=== PATIENT | female | born 1995 | race Caucasian/White ===

== ENCOUNTER 2017-11-28 09:42 | Emergency (ER) | payer OTHER, SELFPAY ==
[2017-11-28 12:29] LABS: Urine Blood 3+ (NEG); Urine Glucose NEGATIVE (NEG); Urine Protein 2+ (NEG); Urine Specific Gravity 1.025 (1.005-1.030); Urine pH 8.5 (5.0-7.0)
[2017-11-28 12:58] LABS: Urine RBC TNTC /HPF (NONE SEEN)
--- NOTE | 2017-11-28 12:58 | RAD REPORT ---
EXAM DESCRIPTION: US - Transvaginal Study Probe - 11/28/2017 12:49 pm CLINICAL HISTORY: PAIN Pelvic pain. COMPARISON: No comparisons FINDINGS: The uterus is normal in size, shape and echotexture. The uterus measures 7.0 x 3.6 x 3.5 c m. The endometrial stripe measures 4 mm, normal. Both ovaries are normal in size, shape and echotexture. The right ovary measures 3.1 x 2.3 x 2.2 cm. The left ovary measures 3.4 x 2.7 x 2.4 cm. No ovarian or parovarian lesions. No adnexal masses. Normal Doppler blood flow was demonstrated to both ovaries. No significant pelvic ascites. IMPRESSION: Unremarkable study.
[2017-11-28 12:59] LABS: Urine Bacteria <20 /HPF (<20); Urine Culture Reflex Order NOT NEEDED
[2017-11-28 13:22] LABS: Absolute Lymphocytes (CBC) 2.1 K/uL (0.7-4.9); Absolute Monocytes 0.8 K/uL (0.1-1.3); Absolute Neutrophil 6.5 K/uL (1.8-8.0); Basophils % 0.5 % (0-1.3); Eosinophils % 4.1 % (0-4.4); Hematocrit 40.9 % (36.0-45.0); Lymphocytes % 21.4 % (15.3-44.8); MCH 25.9 pg (27.0-35.0); MCV 79.7 fL (80-100); MPV 8.1 fL (7.6-11.3); Monocytes % 7.8 % (3.3-12.3); RBC Red Blood Cell Count 5.14 M/uL (3.86-4.86)
--- NOTE | 2017-11-28 13:35 | ER ---
Nurse's Notes [facility] Name: Deric Barry Age: 22 yrs Sex: Female : 1995 Arrival Date: 11/28/2017 Time: 09:47 Bed 6 Private MD: None, None Diagnosis: Pelvic and perineal pain Presentation: 11/28 09:55 Presenting complaint: Patient states: Vaginal redness and inflammation that started 3-4 aj days ago. 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 Onset of symptoms was November 24, 2017. Risk Assessment: Do you want to hurt yourself or someone else? Patient reports no desire to harm self or others. Initial Sepsis Screen: Does the patient meet any 2 criteria? No. Patient's initial sepsis screen is negative. Does the patient have a suspected source of infection? No. Patient's initial sepsis screen is negative. Care prior to arrival: None. 09:55 Method Of Arrival: Ambulatory aj 09:55 Acuity: DOLLY 3 aj Triage Assessment: 09:57 General: Appears in no apparent distress. comfortable, Behavior is calm, cooperative, aj appropriate for age. Pain: Complains of pain in meatus, vaginal opening, right labia minora and left labia minora. Neuro: Level of Consciousness is awake, alert, obeys commands, Oriented to person, place, time, situation, Appropriate for age. Respiratory: Airway is patent Respiratory effort is even, unlabored, Respiratory pattern is regular, symmetrical. : Reports pain in vagina. Derm: Skin is intact, is healthy with good turgor, Skin is pink, warm \T\ dry. normal. 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 - Social history:: Smoking status: Patient/guardian denies using tobacco. - Ebola Screening: : Patient negative for fever greater than or equal to 101.5 degrees Fahrenheit, and additional compatible Ebola Virus Disease symptoms Patient denies exposure to infectious person Patient denies travel to an Ebola-affected area in the 21 days before illness onset No symptoms or risks identified at this time. Assessment: 12:11 Reassessment: requested GC probe from lab, prior to exam. tw2 Vital Signs: 09:57 BP 108 / 59; Pulse 82; Resp 16; Temp 97.8; Pulse Ox 100% on R/A; Weight 89.81 kg; aj Height 5 ft. 1 in. (154.94 cm); 09:57 Body Mass Index 37.41 (89.81 kg, 154.94 cm) aj ED Course: 09:47 Patient arrived in ED. mr 09:48 None, None is Private Physician. mr 09:56 Triage completed. aj 09:57 Arm band placed on left wrist. Patient placed in waiting room. aj 11:13 Elizabeth Robertson RN is Primary Nurse. jl7 11:14 Agustin Peña PA is PHCP. cp 11:14 Georgi Moses MD is Attending Physician. cp 12:25 Urine collected: clean catch specimen, cloudy, blood tinged. jb1 12:35 Patient taken to ultrasound. via wheelchair. aa4 12:49 Ultrasound completed. Patient tolerated well. Patient moved back from ultrasound. aa4 12:50 US Transvaginal Study (Probe) In Process Unspecified. EDMS 13:07 Inserted saline lock: 20 gauge in right antecubital area, using aseptic technique. aj Blood collected. 13:11 Report given to WILL Hardy. tw2 Administered Medications: 14:06 Not Given (Duplicate Order): Rocephin - (cefTRIAXone) 1 grams IVPB once over 30 mins; sg (mix in 50 mL NS) 14:10 Drug: Zithromax 1 grams Route: PO; sg 14:30 Follow up: Response: No adverse reaction jl7 14:10 Drug: Rocephin 1 grams Route: IV; Rate: bolus; Site: right antecubital; sg 14:13 Follow up: Response: No adverse reaction; IV Status: Completed infusion jl7 Outcome: 13:34 Discharge ordered by . cp 14:42 Patient left the ED. bd Addendum: 12/01/2017 08:18 Addendum: Culture Results: Positive urine culture. No further action required. Bacteria s s sensitive to prescribed antibiotic. Signatures: Dispatcher [employer] EDSatish Hermos[place] jb1 Beth Patino Steven, RN Myranda Pineda, RN Dinorah Pierce mr Lewis, Myranda aa4 Roxana Gutierres, RN RN Agustin Diaz PA PA cp Wise, Tara RN RN tw2 Elizabeth Robertson RN RN jl7
--- NOTE | 2017-11-28 13:35 | EDPHYS ---
Physician Documentation [facility] Name: Deric Barry Age: 22 yrs Sex: Female : 1995 Arrival Date: 11/28/2017 Time: 09:47 Bed 6 Private MD: None, None ED Physician Georgi Moses HPI: 11/28 10:45 This 22 yrs old Female presents to ER via Ambulatory with complaints of cp Vaginal Itching, Vaginal Swelling. 10:45 The patient presents with pelvic pain, vaginal bleeding that is. Onset: The cp symptoms/episode began/occurred 4 day(s) ago. Associated signs and symptoms: Pertinent negatives: constipation, diarrhea, dysuria, fever. The patient is sexually active, reportedly has a single partner, does not use protection during intercourse. The patient's method of control includes nothing. 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 - Social history:: Smoking status: Patient/guardian denies using tobacco. - Ebola Screening: : Patient negative for fever greater than or equal to 101.5 degrees Fahrenheit, and additional compatible Ebola Virus Disease symptoms Patient denies exposure to infectious person Patient denies travel to an Ebola-affected area in the 21 days before illness onset No symptoms or risks identified at this time. ROS: 11:00 Constitutional: Negative for body aches, chills, fever, poor PO intake. cp 11:00 Eyes: Negative for injury, pain, redness, and discharge. cp 11:00 ENT: Negative for drainage from ear(s), ear pain, sore throat, difficulty swallowing, difficulty handling secretions. 11:00 Cardiovascular: Negative for chest pain, palpitations. 11:00 Respiratory: Negative for cough, wheezing. 11:00 Abdomen/GI: Negative for abdominal pain, nausea, vomiting, and diarrhea. 11:00 : Positive for pelvic pain, vaginal bleeding, Negative for urinary symptoms, flank pain. 11:00 Skin: Negative for rash. 11:00 Neuro: Negative for altered mental status, headache, weakness. 11:00 All other systems are negative. Exam: 11:00 Head/Face: Normocephalic, atraumatic. cp 11:00 Constitutional: The patient appears in no acute distress, alert, awake, non-toxic, well developed, well nourished. 11:00 Eyes: Periorbital structures: appear normal, Conjunctiva: normal, no exudate, no injection, Lids and lashes: appear normal, bilaterally. 11:00 ENT: External ear(s): are unremarkable, Nose: is normal, Mouth: Lips: moist, Oral mucosa: pink and intact, moist, Posterior pharynx: is normal, airway is patent, no erythema, no exudate. 11:00 Chest/axilla: Palpation: is normal, no crepitus, no tenderness. 11:00 Cardiovascular: Rate: normal, Rhythm: regular. 11:00 Respiratory: the patient does not display signs of respiratory distress, Respirations: normal, no use of accessory muscles, no retractions, no splinting, no tachypnea, labored breathing, is not present. 11:00 Abdomen/GI: Inspection: abdomen appears normal, Bowel sounds: active, all quadrants, Palpation: soft, in all quadrants, mild abdominal tenderness, in the suprapubic area, rebound tenderness, is not appreciated, voluntary guarding, is not appreciated, involuntary guarding, is not appreciated. 11:00 Back: CVA tenderness, is absent. 11:00 Skin: cellulitis, is not appreciated, no rash present. 11:00 Neuro: Orientation: to person, place \T\ time. Mentation: lucid, able to follow commands, Cerebellar function: is grossly normal, Motor: moves all fours, strength is normal, Sensation: no obvious gross deficits. 12:25 : Pelvic Exam: External exam: is normal, Speculum exam: moderate bleeding, no cp cervicitis, os that is closed, no tissue in cervix is seen, no tissue in vagina is seen, bimanual exam reveals cervical motion tenderness, uterine tenderness, no adnexa tenderness or masses bilaterally, discharge, bloody, the nurse was present for the exam. Vital Signs: 09:57 BP 108 / 59; Pulse 82; Resp 16; Temp 97.8; Pulse Ox 100% on R/A; Weight 89.81 kg; aj Height 5 ft. 1 in. (154.94 cm); 09:57 Body Mass Index 37.41 (89.81 kg, 154.94 cm) aj MDM: 11:14 Patient medically screened. 12:00 Differential diagnosis: ectopic , ovarian cyst, pelvic inflammatory disease, cp urinary tract infection, vaginosis. 13:35 Data reviewed: vital signs, nurses notes, lab test result(s), radiologic studies, cp ultrasound, and as a result, I will discharge patient. 13:35 Counseling: I had a detailed discussion with the patient and/or guardian regarding: the cp historical points, exam findings, and any diagnostic results supporting the discharge/admit diagnosis, lab results, radiology results, the need for outpatient follow up, an OB/Gyne specialist, to return to the emergency department if symptoms worsen or persist or if there are any questions or concerns that arise at home. 11/28 10:39 Order name: Urine Culture [facility] 11/28 10:39 Order name: Urine Microscopic Only; Complete Time: 13:04 [facility] 11/28 13:04 Interpretation: Normal except: URBC TNTC. 11/28 11:43 Order name: GC (GONORR/CHLAMYDIA) Probe 11/28 11:43 Order name: Wet Prep; Complete Time: 13:04 11/28 12:22 Order name: Urine Dipstick--Ancillary (enter results); Complete Time: 13:04 11/28 13:04 Interpretation: Normal except: UBLD 3+; UPH 8.5; UPROT 2+. 11/28 12:22 Order name: Urine --Ancillary (enter results); Complete Time: 13:04 11/28 10:39 Order name: Urine Test (obtain specimen); Complete Time: 12:25 [facility] 11/28 10:39 Order name: Urine Dipstick-Ancillary (obtain specimen); Complete Time: 12:25 [facility] 11/28 12:26 Order name: US Transvaginal Study (Probe); Complete Time: 13:04 11/28 13:04 Interpretation: Reviewed report. 11/28 12:26 Order name: CBC with Diff; Complete Time: 13:31 11/28 13:31 Interpretation: Normal except: RBC 5.14; MCV 79.7; MCH 25.9; RDW 17.9. cp 11/28 12:26 Order name: BMP; Complete Time: 14:36 cp 11/28 11:42 Order name: Pelvic Exam Setup; Complete Time: 13:06 cp 11/28 12:27 Order name: IV; Complete Time: 13:06 cp Administered Medications: 14:06 Not Given (Duplicate Order): Rocephin - (cefTRIAXone) 1 grams IVPB once over 30 mins; sg (mix in 50 mL NS) 14:10 Drug: Zithromax 1 grams Route: PO; sg 14:30 Follow up: Response: No adverse reaction jl7 14:10 Drug: Rocephin 1 grams Route: IV; Rate: bolus; Site: right antecubital; sg 14:13 Follow up: Response: No adverse reaction; IV Status: Completed infusion jl7 Disposition: 11/29 07:13 Co-signature as Attending Physician, Georgi Moses MD I agree with the assessment and kdr plan of care. Disposition: 11/28/17 13:34 Discharged to Home. Impression: Pelvic and perineal pain. - Condition is Stable. - Discharge Instructions: Pelvic Pain, Female. - Prescriptions for Doxycycline Hyclate 100 mg Oral Tablet - take 1 tablet by ORAL route every 12 hours; 20 tablet. Metronidazole 500 mg Oral Tablet - take 1 tablet by ORAL route every 8 hours; 30 tablet. - Medication Reconciliation Form, Thank You Letter, Antibiotic Education, Prescription Opioid Use form. - Follow up: Private Physician; When: 2 - 3 days; Reason: Recheck today's complaints. - Problem is new. - Symptoms have improved. Signatures: Dispatcher [employer] EDMS Beth Patino Steven, RN RN sg Myers, Amanda RN Georgi Atkinson MD MD kdr Therrien, Shelly, REFINED SYRUP OPERATOR-C REFINED SYRUP OPERATOR-Csnw Agustin Peña PA PA cp Leal, Jahala RN jl7 Corrections: (The following items were deleted from the chart) 11/28 14:42 13:34 11/28/2017 13:34 Discharged to Home. Impression: Pelvic and perineal pain. bd Condition is Stable. Forms are Medication Reconciliation Form, Thank You Letter, Antibiotic Education, Prescription Opioid Use. Follow up: Private Physician; When: 2 - 3 days; Reason: Recheck today's complaints. Problem is new. Symptoms have improved. cp
[2017-11-28 13:37] LABS: BUN Blood Urea Nitrogen 11 mg/dL (7-18); Bicarbonate 28 mmol/L (21-32); Glucose Level 85 mg/dL (74-106); Potassium 3.7 mmol/L (3.5-5.1); Sodium Level 139 mmol/L (136-145)
[2017-11-28] MEDS ORDERED: AZITHROMYCIN 250 MG TAB ONE ×2 (14:17→14:21)
[2017-11-28] MEDS ORDERED: CEFTRIAXONE/SWI 1gm 1 GM/10 ML SYR ONE (14:18)
[2017-11-30 15:25] LABS: C.trachomatis RNA,TMA Not Detected (Not Detected)
== END 2017-11-28 14:42 | disposition home or self-care (01) ==
LOC: ER 09:42
DX: R10.2 Pelvic and perineal pain (principal); J45.909 Unspecified asthma, uncomplicated
CPT/HCPCS: 36415; 76830; 80048; 81003; 81015; 81025; 85025; 87077; 87086; 87088; 87186; 87210; 87490; 87590; 96374; 99284; J0696

== ENCOUNTER 2018-03-19 16:29 | Emergency (ER) | payer SELFPAY ==
--- NOTE | 2018-03-19 18:48 | RAD REPORT ---
EXAM DESCRIPTION: RAD - Chest Pa And Lat (2 Views) - 03/19/2018 6:42 pm CLINICAL HISTORY: Cough;Congestion Chest pain. COMPARISON: Chest Single View dated 09/05/2015; CHEST PA AND LAT 2 VIEW dated 05/14/2008 FINDINGS: The lungs are clear. The heart is mildly enlarged in size with postsurgical changes presen t. Sternotomy wires noted. Mild thoracic dextroscoliosis. IMPRESSION: No acute finding demonstrated.
[2018-03-19 18:49] LABS: Absolute Lymphocytes (CBC) 2.7 K/uL (0.7-4.9); Absolute Monocytes 0.6 K/uL (0.1-1.3); Basophils % 0.6 % (0-1.3); Eosinophils % 4.1 % (0-4.4); Hematocrit 43.3 % (36.0-45.0); Lymphocytes % 40.8 % (15.3-44.8); MPV 8.1 fL (7.6-11.3); Monocytes % 9.5 % (3.3-12.3); RBC Red Blood Cell Count 5.11 M/uL (3.86-4.86)
[2018-03-19 19:00] LABS: BUN Blood Urea Nitrogen 14 mg/dL (7-18); Bicarbonate 27 mmol/L (21-32); Glucose Level 81 mg/dL (74-106); Sodium Level 139 mmol/L (136-145)
--- NOTE | 2018-03-19 19:31 | EDPHYS ---
Physician Documentation [facility] Name: Deric Barry Age: 22 yrs Sex: Female : 1995 Arrival Date: 03/19/2018 Time: 16:38 Bed 6 Private MD: None, None ED Physician Georgi Moses HPI: 03/19 19:28 This 22 yrs old Female presents to ER via Ambulatory with complaints of kb fatigue. 19:28 The patient or guardian reports cough, that is intermittent, described as moderate, kb with no sputum, difficulty breathing, flu symptoms, arthralgias, low-grade fever, myalgias. Onset: The symptoms/episode began/occurred 1 week(s) ago. Severity of symptoms: At their worst the symptoms were moderate, in the emergency department the symptoms are unchanged. Modifying factors: The symptoms are alleviated by nothing, the symptoms are aggravated by nothing. Associated signs and symptoms: Pertinent positives: earache, fever, rhinorrhea, sore throat, Pertinent negatives: chest pain, diarrhea, nausea, vomiting. The patient has not experienced similar symptoms in the past. The patient has not recently seen a physician. 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 - Social history:: Smoking status: Patient uses tobacco products, Patient/guardian denies using alcohol. - Ebola Screening: : Patient negative for fever greater than or equal to 101.5 degrees Fahrenheit, and additional compatible Ebola Virus Disease symptoms Patient denies exposure to infectious person Patient denies travel to an Ebola-affected area in the 21 days before illness onset. ROS: 19:26 Cardiovascular: Negative for chest pain, palpitations, and edema, Abdomen/GI: Negative kb for abdominal pain, nausea, vomiting, diarrhea, and constipation, Back: Negative for injury and pain, MS/Extremity: Negative for injury and deformity, Skin: Negative for injury, rash, and discoloration, Neuro: Negative for headache, weakness, numbness, tingling, and seizure. 19:26 Constitutional: Positive for body aches, chills, fatigue, fever, malaise, Negative for poor PO intake, weight loss. 19:26 ENT: Positive for rhinorrhea, sinus congestion. 19:26 Respiratory: Positive for cough, Negative for dyspnea on exertion, hemoptysis, orthopnea, pleurisy, shortness of breath, sputum production, wheezing. Exam: 19:26 Constitutional: This is a well developed, well nourished patient who is awake, alert, kb and in no acute distress. Head/Face: Normocephalic, atraumatic. Neck: Trachea midline, no thyromegaly or masses palpated, and no cervical lymphadenopathy. Supple, full range of motion without nuchal rigidity, or vertebral point tenderness. No Meningismus. Chest/axilla: Normal chest wall appearance and motion. Nontender with no deformity. No lesions are appreciated. Cardiovascular: Regular rate and rhythm with a normal S1 and S2. No gallops, murmurs, or rubs. Normal PMI, no JVD. No pulse deficits. Respiratory: Lungs have equal breath sounds bilaterally, clear to auscultation and percussion. No rales, rhonchi or wheezes noted. No increased work of breathing, no retractions or nasal flaring. Abdomen/GI: Soft, non-tender, with normal bowel sounds. No distension or tympany. No guarding or rebound. No evidence of tenderness throughout. Skin: Warm, dry with normal turgor. Normal color with no rashes, no lesions, and no evidence of cellulitis. MS/ Extremity: Pulses equal, no cyanosis. Neurovascular intact. Full, normal range of motion. Neuro: Awake and alert, GCS 15, oriented to person, place, time, and situation. Cranial nerves II-XII grossly intact. Motor strength 5/5 in all extremities. Sensory grossly intact. Cerebellar exam normal. Normal gait. 19:26 ENT: External ear(s): are unremarkable, Ear canal(s): are normal, TM's: fluid levels, bilaterally, Nose: is normal, Mouth: is normal, Posterior pharynx: Airway: normal, no evidence of obstruction, Uvula: normal, midline, erythema, that is moderate. Vital Signs: 16:56 BP 115 / 77; Pulse 78; Resp 18; Temp 99.7(O); Pulse Ox 100% on R/A; Weight 86.18 kg; hj Height 5 ft. 1 in. (154.94 cm); Pain 6/10; 18:47 BP 110 / 66; Pulse 64; Resp 18; Pulse Ox 100% on R/A; la1 19:45 BP 120 / 60; Pulse 60; Resp 18; Temp 98.7; Pulse Ox 98% ; ea 16:56 Body Mass Index 35.90 (86.18 kg, 154.94 cm) MDM: 18:10 Patient medically screened. kb 19:27 Data reviewed: vital signs, nurses notes. Data interpreted: Pulse oximetry: on room air kb is 100 %. Interpretation: normal. Counseling: I had a detailed discussion with the patient and/or guardian regarding: the historical points, exam findings, and any diagnostic results supporting the discharge/admit diagnosis, lab results, radiology results, the need for outpatient follow up, a family practitioner, to return to the emergency department if symptoms worsen or persist or if there are any questions or concerns that arise at home. 03/19 16:58 Order name: Flu; Complete Time: 18:10 03/19 16:58 Order name: Strep; Complete Time: 18:10 03/19 17:34 Order name: Throat Culture EDMS 03/19 18:30 Order name: CBC with Diff kb 03/19 18:30 Order name: Basic Metabolic Panel 03/19 18:30 Order name: [place] Screen Profile; Complete Time: 19:19 kb 03/19 18:30 Order name: Chest Pa And Lat (2 Views) XRAY; Complete Time: 18:50 kb 03/19 18:30 Order name: CBC with Automated Diff; Complete Time: 18:53 EDMS 03/19 18:30 Order name: Basic Metabolic Panel; Complete Time: 19:01 EDMS Administered Medications: No medications were administered Disposition: 03/20 09:40 Co-signature as Attending Physician, Georgi Moses MD I agree with the assessment and kdr plan of care. Disposition: 03/19/18 19:30 Discharged to Home. Impression: Infectious mononucleosis. - Condition is Stable. - Discharge Instructions: Infectious Mononucleosis, [id number]. - Medication Reconciliation Form, Thank You Letter, Antibiotic Education, Prescription Opioid Use form. - Follow up: Emergency Department; When: As needed; Reason: Worsening of condition. Follow up: Private Physician; When: 2 - 3 days; Reason: Recheck today's complaints, Continuance of care, Re-evaluation by your physician. Signatures: Dispatcher [employer] EDCA ChalinoJeetCandace, PAINTER AND BODY MECHANIC APPRENTICE-C PAINTER AND BODY MECHANIC APPRENTICE-Georgi Zelaya MD MD kdr Joaquin, Henry, RN RN hj Antunez, Elena, RN RN ea Corrections: (The following items were deleted from the chart) 03/19 19:48 19:30 03/19/2018 19:30 Discharged to Home. Impression: Infectious mononucleosis. ea Condition is Stable. Forms are Medication Reconciliation Form, Thank You Letter, Antibiotic Education, Prescription Opioid Use. Follow up: Emergency Department; When: As needed; Reason: Worsening of condition. Follow up: Private Physician; When: 2 - 3 days; Reason: Recheck today's complaints, Continuance of care, Re-evaluation by your physician. kb
--- NOTE | 2018-03-19 19:31 | ER ---
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 Onset of symptoms was March 19, 2018. Risk Assessment: Do you want to hurt yourself or someone else? Patient reports no desire to harm self or others. Initial Sepsis Screen: Does the patient meet any 2 criteria? No. Patient's initial sepsis screen is negative. Does the patient have a suspected source of infection? No. Patient's initial sepsis screen is negative. Care prior to arrival: None. 16:54 Method Of Arrival: Ambulatory 16:54 Acuity: DOLLY 4 hj Triage Assessment: 16:56 General: Appears in no apparent distress. uncomfortable, Behavior is calm, cooperative, hj appropriate for age. Pain: Complains of pain in body. 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 - Social history:: Smoking status: Patient uses tobacco products, Patient/guardian denies using alcohol. - Ebola Screening: : Patient negative for fever greater than or equal to 101.5 degrees Fahrenheit, and additional compatible Ebola Virus Disease symptoms Patient denies exposure to infectious person Patient denies travel to an Ebola-affected area in the 21 days before illness onset. Screenin:56 Abuse screen: Denies threats or abuse. Denies injuries from another. Nutritional hj screening: No deficits noted. Tuberculosis screening: No symptoms or risk factors identified. Fall Risk None identified. Assessment: 18:14 General: Appears in no apparent distress. Behavior is calm, cooperative. Pain: Denies la1 pain. Neuro: Level of Consciousness is awake, alert, obeys commands, Oriented to person, place, time, situation. Cardiovascular: Heart tones S1 S2 present Murmur present Capillary refill < 3 seconds Patient's skin is warm and dry. Cardiovascular: Reports fatigue. Respiratory: Reports chest tightnes Airway is patent Respiratory effort is even, unlabored, Respiratory pattern is regular, symmetrical, Breath sounds are clear bilaterally. GI: No signs and/or symptoms were reported involving the gastrointestinal system. : No signs and/or symptoms were reported regarding the genitourinary system. 19:30 General: Appears in no apparent distress. Behavior is calm, cooperative, appropriate ea for age. Pain: Denies pain. Neuro: Level of Consciousness is awake, alert, obeys commands, Oriented to person, place, time, situation. Cardiovascular: Patient's skin is warm and dry. Respiratory: Airway is patent Respiratory effort is even, unlabored, Respiratory pattern is regular, symmetrical. GI: No signs and/or symptoms were reported involving the gastrointestinal system. : No signs and/or symptoms were reported regarding the genitourinary system. 19:45 Reassessment: Patient and/or family updated on plan of care and expected duration. Pain ea level reassessed. Patient is alert, oriented x 3, equal unlabored respirations, skin warm/dry/pink. Discharge instructions given to patient, verbalized the understanding of isntruction. Vital Signs: 16:56 BP 115 / 77; Pulse 78; Resp 18; Temp 99.7(O); Pulse Ox 100% on R/A; Weight 86.18 kg; Height 5 ft. 1 in. (154.94 cm); Pain 6/10; 18:47 BP 110 / 66; Pulse 64; Resp 18; Pulse Ox 100% on R/A; la1 19:45 BP 120 / 60; Pulse 60; Resp 18; Temp 98.7; Pulse Ox 98% ; ea 16:56 Body Mass Index 35.90 (86.18 kg, 154.94 cm) ED Course: 16:38 Patient arrived in ED. mr 16:38 None, None is Private Physician. mr 16:55 Triage completed. hj 16:56 Arm band placed on right wrist. hj 16:56 Patient has correct armband on for positive identification. Bed in low position. Call light in reach. Side rails up X 1. Adult w/ patient. 17:01 Flu Sent. iw 17:01 Strep Sent. iw 18:09 Candace Allred F[facility]-C [facility]. kb 18:09 Georgi Moses MD is Attending Physician. kb 18:14 Gray Zamudio, RN is Primary Nurse. la1 18:37 No provider procedures requiring assistance completed. Inserted saline lock: 22 gauge la1 in right antecubital area, using aseptic technique. Blood collected. 18:42 Chest Pa And Lat (2 Views) XRAY In Process Unspecified. EDMS 19:45 IV discontinued, intact, bleeding controlled, No redness/swelling at site. Pressure ea dressing applied. Administered Medications: No medications were administered Outcome: 19:30 Discharge ordered by MD. kb 19:47 Discharged to home ambulatory, with family. ea 19:47 Condition: good 19:47 Discharge instructions given to patient, Instructed on discharge instructions, follow up and referral plans. Demonstrated understanding of instructions, follow-up care. 19:48 Patient left the ED. ea Signatures: Dispatcher [employer] EDAK Candace Allred FNP-C FNP-Ckb GonzalezOlive Coral Hilton, RN Gray Lopez, RN WILL la1 Dae Barton, Tequila Encarnacion RN, RN RN severino Corrections: (The following items were deleted from the chart) 16:59 16:56 Pulse 78bpm; Resp 18bpm; Pulse Ox 100% RA; Temp 99.7F Oral; 86.18 kg; Height 5 hj ft. 1 in.; BMI: 35.9; Pain 6/10; hj
== END 2018-03-19 19:48 | disposition home or self-care (01) ==
LOC: ER 16:29
DX: B27.90 Infectious mononucleosis, unspecified without complication (principal); J45.909 Unspecified asthma, uncomplicated; Q21.0 Ventricular septal defect; Z79.51 Long term (current) use of inhaled steroids; Z79.899 Other long term (current) drug therapy; Z72.0 Tobacco use
CPT/HCPCS: 36415; 71046; 80048; 85025; 86308; 87070; 87081; 87804; 99283

== ENCOUNTER 2018-05-16 17:44 | Emergency (ER) | payer SELFPAY ==
--- OUTSIDE RECORDS SUMMARY | 2018-05-16 17:46 | XMS REPORT ---
:1995 [facility] Address [address] [place] [address] [address]. [address] [place] [address] Care Team Providers Name Role Phone Unavailable Unavailable Unavailable Problems This patient has no known problems. Allergies, Adverse Reactions, Alerts This patient has no known allergies or adverse reactions. Medications This patient has no known medications.
--- NOTE | 2018-05-16 20:14 | RAD REPORT ---
EXAM DESCRIPTION: Jairo Null (2 Views)05/16/2018 8:07 pm CLINICAL HISTORY: Chest pain COMPARISON: February 2018 FINDINGS: The lungs appear clear of acute infiltrate. The heart is mildly enlarged. Postsurgical changes involve the chest. IMPRESSION: No acute abnormalities displayed
--- NOTE | 2018-05-16 20:16 | EDPHYS ---
Physician Documentation [facility] Name: Deric Barry Age: 22 yrs Sex: Female : 1995 Arrival Date: 05/16/2018 Time: 17:46 Bed 30 Private MD: ED Physician Georgi Moses HPI: 05/16 18:45 This 22 yrs old Female presents to ER via Ambulatory with complaints of Sore cp Throat, Ear Pain. 18:45 The patient presents with sore throat. The patient describes throat pain as constant. cp Onset: The symptoms/episode began/occurred 4-5 days ago. Severity of symptoms: in the emergency department the symptoms are unchanged, despite home interventions. Associated signs and symptoms: Pertinent positives: cough, Pertinent negatives fever. 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 - Social history:: Smoking status: Patient/guardian denies using tobacco. - Ebola Screening: : No symptoms or risks identified at this time. ROS: 18:50 Constitutional: Negative for fever, poor PO intake. cp 18:50 ENT: Positive for ear pain, sore throat, Negative for drainage from ear(s), difficulty cp swallowing, difficulty handling secretions. 18:50 Neck: Negative for pain with movement, pain at rest, stiffness. 18:50 Cardiovascular: Positive for chest pain, with cough, Negative for edema, palpitations. 18:50 Respiratory: Positive for cough, Negative for wheezing. 18:50 Abdomen/GI: Negative for vomiting, diarrhea, constipation. 18:50 Skin: Negative for cellulitis, rash. 18:50 Neuro: Negative for altered mental status, headache. 18:50 All other systems are negative. Exam: 19:00 Constitutional: The patient appears in no acute distress, alert, awake, cp non-diaphoretic, non-toxic, well developed, well nourished. 19:00 Head/Face: Normocephalic, atraumatic. Eyes: Pupils equal round and reactive to light, cp extra-ocular motions intact. Lids and lashes normal. Conjunctiva and sclera are non-icteric and not injected. Cornea within normal limits. Periorbital areas with no swelling, redness, or edema. 19:00 ENT: External ear(s): are unremarkable, Ear canal(s): are normal, clear, TM's: bulging, is not appreciated, bilaterally, erythema, that is mild, bilaterally, Nose: is normal, Mouth: Lips: moist, Oral mucosa: moist, Posterior pharynx: Airway: no evidence of obstruction, patent, Tonsils: with erythema, no enlargement, no exudate, Uvula: midline, swelling, is not appreciated, erythema, that is mild, exudate, is not appreciated. 19:00 Neck: ROM/movement: is normal, is supple, without pain, no range of motions limitations, no meningismus, no nuchal rigidity, Lymph nodes: no appreciated lymphadenopathy. 19:00 Chest/axilla: Inspection: normal, Palpation: is normal, no crepitus, no tenderness. 19:00 Cardiovascular: Rate: normal, Rhythm: regular, Edema: is not appreciated, JVD: is not appreciated. 19:00 Respiratory: the patient does not display signs of respiratory distress, Respirations: normal, no use of accessory muscles, no retractions, no splinting, no tachypnea, Breath sounds: bronchial sounds, that are mild, are heard diffusely, decreased breath sounds, are not appreciated, stridor, is not appreciated, + upper airway congestion. wheezing: is not appreciated. 19:00 Abdomen/GI: Exam negative for discomfort, distension, guarding, Inspection: abdomen appears normal. 19:00 Back: pain, is absent, ROM is normal. 19:00 Skin: cellulitis, is not appreciated, no rash present. Vital Signs: 18:00 BP 107 / 73; Pulse 69; Resp 18 S; Temp 98.6(O); Pulse Ox 98% on R/A; Weight 86.18 kg aa5 (R); Height 5 ft. 1 in. (154.94 cm) (R); Pain 6/10; 19:13 BP 112 / 69; Pulse 63; Resp 18; Pulse Ox 99% on R/A; Pain 2/10; mg2 20:26 BP 115 / 78; Pulse 78; Resp 17; Pulse Ox 99% on R/A; Pain 2/10; mg2 18:00 Body Mass Index 35.90 (86.18 kg, 154.94 cm) aa5 MDM: 18:12 Patient medically screened. cp 19:00 Differential diagnosis: group A strep tonsillitis, peritonsillar abscess cp retropharyngeal abcess tonsillitis, upper respiratory infection, viral syndrome pneumonia. 20:14 Data reviewed: vital signs, nurses notes, lab test result(s), radiologic studies, plain cp films, and as a result, I will discharge patient. 20:14 Counseling: I had a detailed discussion with the patient and/or guardian regarding: the cp historical points, exam findings, and any diagnostic results supporting the discharge/admit diagnosis, lab results, radiology results, to return to the emergency department if symptoms worsen or persist or if there are any questions or concerns that arise at home. 05/16 18:39 Order name: Strep 05/16 18:39 Order name: Influenza Screen (a \T\ B) 05/16 19:02 Order name: Influenza Screen (A [facility] 05/16 19:02 Order name: Group A Streptococcus Rapid Sc [facility] 05/16 19:33 Order name: XRAY Chest Pa And Lat (2 Views) 05/16 20:16 Order name: RAD [facility] Administered Medications: No medications were administered Disposition: 20:45 Chart complete. Disposition: 05/16/18 20:15 Discharged to Home. Impression: Influenza due to identified novel influenza A virus with other respiratory manifestations, Otitis media, unspecified, bilateral. - Condition is Stable. - Discharge Instructions: Otitis Media, Adult, Influenza, Adult. - Prescriptions for Ibuprofen 800 mg Oral Tablet - take 1 tablet by ORAL route every 8 hours As needed take with food; 30 tablet. Tamiflu 75 mg Oral Capsule - take 1 capsule by ORAL route every 12 hours for 5 days; 10 capsule. Zithromax Z- Nadeem 250 mg Oral Tablet - take 1 tablet by ORAL route as directed for 5 days Day 1 - take two (2) tablets one time. Day 2, 3, 4 , 5 take one (1) tablet once daily.; 6 tablet. - Medication Reconciliation Form, Thank You Letter, Antibiotic Education, Prescription Opioid Use form. - Follow up: Private Physician; When: 48 Hours; Reason: Worsening of condition. - Problem is new. - Symptoms have improved. Addendum: 05/19/2018 07:00 Co-signature as Attending Physician, Georgi Moses MD I agree with the assessment and k dr plan of care. Signatures: Dispatcher [employer] EDMS Georgi Moses MD MD [facility] Joann Lowe RN RN aa5 Agustin Peña PA PA cp Angel Morejon, RN RN mg2 Corrections: (The following items were deleted from the chart) 05/16 20:27 20:15 05/16/2018 20:15 Discharged to Home. Impression: Influenza due to identified mg2 novel influenza A virus with other respiratory manifestations; Otitis media, unspecified, bilateral. Condition is Stable. Forms are Medication Reconciliation Form, Thank You Letter, Antibiotic Education, Prescription Opioid Use. Follow up: Private Physician; When: 48 Hours; Reason: Worsening of condition. Problem is new. Symptoms have improved. cp
--- NOTE | 2018-05-16 20:16 | ER ---
Nurse's Notes [facility] Name: Deric Barry Age: 22 yrs Sex: Female : 1995 Arrival Date: 05/16/2018 Time: 17:46 Bed 30 Private MD: Diagnosis: Influenza due to identified novel influenza A virus with other respiratory manifestations;Otitis media, unspecified, bilateral Presentation: 05/16 17:58 Presenting complaint: Patient states: sore throat, cough, gali ear pain that began 4-5 aa5 days ago. 17:58 Transition of care: patient was not received from another setting of care. Onset of aa5 symptoms was April 2018. Risk Assessment: Do you want to hurt yourself or someone else? Patient reports no desire to harm self or others. Initial Sepsis Screen: Does the patient meet any 2 criteria? No. Patient's initial sepsis screen is negative. Does the patient have a suspected source of infection? No. Patient's initial sepsis screen is negative. Care prior to arrival: None. 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 - Social history:: Smoking status: Patient/guardian denies using tobacco. - Ebola Screening: : No symptoms or risks identified at this time. Screenin:19 Abuse screen: Denies threats or abuse. Denies injuries from another. Nutritional mg2 screening: No deficits noted. Tuberculosis screening: No symptoms or risk factors identified. Fall Risk None identified. Assessment: 19:18 General: Appears in no apparent distress. comfortable, Behavior is calm, cooperative. mg2 Pain: Complains of pain in throat Pain does not radiate. Pain currently is 2 out of 10 on a pain scale. Quality of pain is described as aching, Pain began gradually, 2-3 days ago. Is intermittent. Neuro: Level of Consciousness is awake, alert, obeys commands, Oriented to person, place, time, situation. Cardiovascular: Capillary refill < 3 seconds Patient's skin is warm and dry. Respiratory: Airway is patent Respiratory effort is even, unlabored, Breath sounds are clear bilaterally. in right upper lobe, left upper lobe, left posterior upper lobe and right posterior upper lobe. Respiratory: Reports cough that is non-productive. GI: No deficits noted. : No deficits noted. EENT: Throat is pink. Derm: Skin is intact, is healthy with good turgor, Skin is pink, warm \T\ dry. normal. Musculoskeletal: Circulation, motion, and sensation intact. Capillary refill < 3 seconds. Vital Signs: 18:00 BP 107 / 73; Pulse 69; Resp 18 S; Temp 98.6(O); Pulse Ox 98% on R/A; Weight 86.18 kg aa5 (R); Height 5 ft. 1 in. (154.94 cm) (R); Pain 6/10; 19:13 BP 112 / 69; Pulse 63; Resp 18; Pulse Ox 99% on R/A; Pain 2/10; mg2 20:26 BP 115 / 78; Pulse 78; Resp 17; Pulse Ox 99% on R/A; Pain 2/10; mg2 18:00 Body Mass Index 35.90 (86.18 kg, 154.94 cm) aa5 ED Course: 17:46 Patient arrived in ED. as 17:58 Arm band placed on Patient placed in an exam room, on a stretcher. aa5 18:05 Triage completed. aa5 18:11 Angel Morejon, WILL is Primary Nurse. mg2 18:11 Agustin Peña PA is PHCP. cp 18:12 Georgi Moses MD is Attending Physician. cp 19:19 No provider procedures requiring assistance completed. Flu and/or RSV swab sent to lab. mg2 Strep swab sent to lab. Patient did not have IV access during this emergency room visit. 19:20 Patient has correct armband on for positive identification. mg2 20:02 X-ray completed. Portable x-ray completed in exam room. Patient tolerated procedure ag1 well. Administered Medications: No medications were administered Outcome: 20:15 Discharge ordered by . cp 20:26 Discharged to home ambulatory. mg2 20:26 Condition: stable 20:26 Discharge instructions given to patient, Instructed on discharge instructions, follow up and referral plans. medication usage, Demonstrated understanding of instructions, follow-up care, medications, Prescriptions given X 3. 20:27 Patient left the ED. mg2 Signatures: Carol Chavez Audri, RN RN aa5 Jenna Puga ag1 Agustin Peña PA PA Angel Prather, RN RN mg2
== END 2018-05-16 20:27 | disposition home or self-care (01) ==
LOC: ER 17:44
DX: J10.1 Influenza due to other identified influenza virus with other respiratory manifestations (principal); H66.93 Otitis media, unspecified, bilateral; J45.909 Unspecified asthma, uncomplicated; Z95.2 Presence of prosthetic heart valve
CPT/HCPCS: 71046; 87070; 87081; 87804; 99283

== ENCOUNTER 2018-10-06 11:52 | Emergency (ER) | payer SELFPAY ==
--- OUTSIDE RECORDS SUMMARY | 2018-10-06 12:11 | XMS REPORT ---
:1995 [facility] Address [address] [place] [address] Dr. Wheeler [address] [place] [id number] Care Team Providers Name Role Phone Unavailable Unavailable Unavailable Problems This patient has no known problems. Allergies, Adverse Reactions, Alerts This patient has no known allergies or adverse reactions. Medications This patient has no known medications.
--- NOTE | 2018-10-06 12:49 | ER ---
Nurse's Notes [facility] Name: Deric Barry Age: 23 yrs Sex: Female : 1995 Arrival Date: 10/06/2018 Time: 11:54 Bed 17 Private MD: Diagnosis: Acute upper respiratory infection, unspecified Presentation: 10/06 12:08 Presenting complaint: Patient states: sore throat x 1 week. Coughing that began last ss night. 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 Onset of symptoms was September 29, 2018. Risk Assessment: Do you want to hurt yourself or someone else? Patient reports no desire to harm self or others. Initial Sepsis Screen: Does the patient meet any 2 criteria? No. Patient's initial sepsis screen is negative. Does the patient have a suspected source of infection? No. Patient's initial sepsis screen is negative. Care prior to arrival: None. 12:08 Method Of Arrival: Ambulatory ss 12:08 Acuity: DOLLY 4 ss Triage Assessment: 12:10 General: Appears in no apparent distress. comfortable, obese, Behavior is cooperative, bp appropriate for age, anxious. Pain: Complains of pain in THROAT. EENT: Reports pain when swallowing. 12:10 Neuro: No deficits noted. Cardiovascular: No deficits noted. Respiratory: No deficits bp noted. 12:10 GI: No signs and/or symptoms were reported involving the gastrointestinal system. : bp No signs and/or symptoms were reported regarding the genitourinary system. Derm: No deficits noted. Musculoskeletal: No deficits noted. 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 - Social history:: Smoking status: Patient/guardian denies using tobacco. - Ebola Screening: : Patient denies exposure to infectious person Patient denies travel to an Ebola-affected area in the 21 days before illness onset. - Family history:: not pertinent. Screenin:18 Abuse screen: Denies threats or abuse. Denies injuries from another. Nutritional bp screening: No deficits noted. Tuberculosis screening: No symptoms or risk factors identified. Fall Risk None identified. Assessment: 12:15 General: SEE TRIAGE NOTE. bp 12:15 Respiratory: Airway is patent Respiratory effort is even, unlabored, Breath sounds are bp clear bilaterally. EENT: Throat is reddened. 13:03 Reassessment: PT D/C HOME AMBULATORY WITH FAMILY, DX WITH ACUTE URI. bp Vital Signs: 12:12 BP 93 / 61; Pulse 68; Resp 16; Temp 98.2(O); Pulse Ox 99% on R/A; Weight 86.18 kg; ss Height 5 ft. 1 in. (154.94 cm); Pain 5/10; 12:12 Body Mass Index 35.90 (86.18 kg, 154.94 cm) ED Course: 11:54 Patient arrived in ED. rg4 12:07 Agustin Smith MD is Attending Physician. [facility] 12:09 Triage completed. 12:12 Arm band placed on right wrist. 12:17 Krzysztof Wheatley, RN is Primary Nurse. bp 12:18 Patient has correct armband on for positive identification. Bed in low position. Call bp light in reach. Side rails up X2. 12:55 Urine collected: clean catch specimen, clear. 3 13:04 No provider procedures requiring assistance completed. Patient did not have IV access bp during this emergency room visit. Administered Medications: No medications were administered Outcome: 12:48 Discharge ordered by . [facility] 13:04 Discharged to home ambulatory, with family. bp 13:04 Condition: stable 13:04 Discharge instructions given to patient, Instructed on discharge instructions, follow up and referral plans. medication usage, Demonstrated understanding of instructions, follow-up care, medications, Prescriptions given X 3. 13:05 Patient left the ED. bp Signatures: Agustin Smith MD MD cha Smirch, Shelby, WILL RN Caitlin Rizo rust Chey Wynne replaced by [facility] Krzysztof Wheatley, WILL RN bp
--- NOTE | 2018-10-06 12:49 | EDPHYS ---
Physician Documentation [facility] Name: Deric Barry Age: 23 yrs Sex: Female : 1995 Arrival Date: 10/06/2018 Time: 11:54 Bed 17 Private MD: ED Physician Agustin Smith HPI: 10/06 12:23 This 23 yrs old Female presents to ER via Ambulatory with complaints of Sore mendel Throat. 12:23 The patient presents with sore throat. The patient describes throat pain as constant, mendel dry. Onset: The symptoms/episode began/occurred 3 day(s) ago. 12:24 Severity of symptoms: At their worst the symptoms were mild, in the emergency mendel department the symptoms are unchanged. The patient or guardian reports cough, described as mild. Modifying factors: The symptoms are alleviated by nothing, the symptoms are aggravated by nothing. 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 - Social history:: Smoking status: Patient/guardian denies using tobacco. - Ebola Screening: : Patient denies exposure to infectious person Patient denies travel to an Ebola-affected area in the 21 days before illness onset. - Family history:: not pertinent. ROS: 12:24 Constitutional: Negative for fever, chills, and weight loss, Eyes: Negative for injury, mendel pain, redness, and discharge, ENT: Negative for injury, pain, and discharge, Neck: Negative for injury, pain, and swelling, Cardiovascular: Negative for chest pain, palpitations, and edema, Abdomen/GI: Negative for abdominal pain, nausea, vomiting, diarrhea, and constipation, Back: Negative for injury and pain, : Negative for injury, bleeding, discharge, and swelling, MS/Extremity: Negative for injury and deformity, Skin: Negative for injury, rash, and discoloration, Neuro: Negative for headache, weakness, numbness, tingling, and seizure, Psych: Negative for depression, anxiety, suicide ideation, homicidal ideation, and hallucinations, Allergy/Immunology: Negative for hives, rash, and allergies, Endocrine: Negative for neck swelling, polydipsia, polyuria, polyphagia, and marked weight changes, Hematologic/Lymphatic: Negative for swollen nodes, abnormal bleeding, and unusual bruising. 12:24 Respiratory: Negative for cough, sputum production. Exam: 12:24 Constitutional: This is a well developed, well nourished patient who is awake, alert, mendel and in no acute distress. Head/Face: Normocephalic, atraumatic. Eyes: Pupils equal round and reactive to light, extra-ocular motions intact. Lids and lashes normal. Conjunctiva and sclera are non-icteric and not injected. Cornea within normal limits. Periorbital areas with no swelling, redness, or edema. ENT: Nares patent. No nasal discharge, no septal abnormalities noted. Tympanic membranes are normal and external auditory canals are clear. Oropharynx with no redness, swelling, or masses, exudates, or evidence of obstruction, uvula midline. Mucous membranes moist. Neck: Trachea midline, no thyromegaly or masses palpated, and no cervical lymphadenopathy. Supple, full range of motion without nuchal rigidity, or vertebral point tenderness. No Meningismus. Chest/axilla: Normal chest wall appearance and motion. Nontender with no deformity. No lesions are appreciated. Cardiovascular: Regular rate and rhythm with a normal S1 and S2. No gallops, murmurs, or rubs. Normal PMI, no JVD. No pulse deficits. Respiratory: Lungs have equal breath sounds bilaterally, clear to auscultation and percussion. No rales, rhonchi or wheezes noted. No increased work of breathing, no retractions or nasal flaring. Abdomen/GI: Soft, non-tender, with normal bowel sounds. No distension or tympany. No guarding or rebound. No evidence of tenderness throughout. Back: No spinal tenderness. No costovertebral tenderness. Full range of motion. Skin: Warm, dry with normal turgor. Normal color with no rashes, no lesions, and no evidence of cellulitis. MS/ Extremity: Pulses equal, no cyanosis. Neurovascular intact. Full, normal range of motion. Neuro: Awake and alert, GCS 15, oriented to person, place, time, and situation. Cranial nerves II-XII grossly intact. Motor strength 5/5 in all extremities. Sensory grossly intact. Cerebellar exam normal. Normal gait. Psych: Awake, alert, with orientation to person, place and time. Behavior, mood, and affect are within normal limits. Vital Signs: 12:12 BP 93 / 61; Pulse 68; Resp 16; Temp 98.2(O); Pulse Ox 99% on R/A; Weight 86.18 kg; ss Height 5 ft. 1 in. (154.94 cm); Pain 5/10; 12:12 Body Mass Index 35.90 (86.18 kg, 154.94 cm) MDM: 12:07 Patient medically screened. [facility] 12:26 Data reviewed: vital signs, nurses notes. [facility] 10/06 12:22 Order name: Urine Dipstick-Ancillary (obtain specimen); Complete Time: 13:01 [facility] 10/06 12:22 Order name: Urine Test (obtain specimen); Complete Time: 13:01 [facility] Administered Medications: No medications were administered Disposition: 10/06/18 12:48 Discharged to Home. Impression: Acute upper respiratory infection, unspecified. - Condition is Stable. - Discharge Instructions: Upper Respiratory Infection, Adult, Cough, Adult. - Prescriptions for Tory- D 12 Hour 60-120 mg Oral Tablet Sustained Release 12 hr - take 1 tablet by ORAL route every 12 hours As needed; 20 tablet. Zithromax Z- Nadeem 250 mg Oral Tablet - take 1 tablet by ORAL route as directed for 5 days Day 1 - take two (2) tablets one time. Day 2, 3, 4 , 5 take one (1) tablet once daily.; 6 tablet. Medrol (Nadeem) 4 mg Oral Tablets, Dose Pack - take 1 tablet by ORAL route as directed - follow package instructions; 1 packet. - Medication Reconciliation Form, Thank You Letter, Antibiotic Education, Prescription Opioid Use form. - Follow up: Private Physician; When: 2 - 3 days; Reason: Recheck today's complaints, Continuance of care, Re-evaluation by your physician. - Problem is new. - Symptoms have improved. Signatures: Agustin Smith MD MD cha Smirch, Shelby, RN RN Krzysztof Wheatley RN RN bp Corrections: (The following items were deleted from the chart) 13:05 12:48 10/06/2018 12:48 Discharged to Home. Impression: Acute upper respiratory bp infection, unspecified. Condition is Stable. Discharge Instructions: Upper Respiratory Infection, Adult, Cough, Adult. Prescriptions for Tory-D 12 Hour 60-120 mg Oral Tablet Sustained Release 12 hr - take 1 tablet by ORAL route every 12 hours As needed; 20 tablet, Zithromax Z-Nadeem 250 mg Oral Tablet - take 1 tablet by ORAL route as directed for 5 days Day 1 - take two (2) tablets one time. Day 2, 3, 4 , 5 take one (1) tablet once daily.; 6 tablet, Medrol (Nadeem) 4 mg Oral Tablets, Dose Pack - take 1 tablet by ORAL route as directed - follow package instructions; 1 packet. and Forms are Medication Reconciliation Form, Thank You Letter, Antibiotic Education, Prescription Opioid Use. Follow up: Private Physician; When: 2 - 3 days; Reason: Recheck today's complaints, Continuance of care, Re-evaluation by your physician. Problem is new. Symptoms have improved. mendel
== END 2018-10-06 13:05 | disposition home or self-care (01) ==
LOC: ER 11:52
DX: J06.9 Acute upper respiratory infection, unspecified (principal); J45.909 Unspecified asthma, uncomplicated
CPT/HCPCS: 99283

== ENCOUNTER 2020-01-25 08:39 | Emergency (ER) | payer OTHER, SELFPAY ==
--- OUTSIDE RECORDS SUMMARY | 2020-01-25 08:57 | XMS REPORT | Continuity of Care Document ---
:1995 Author Organization [facility] t Address [address] [place] [address] Care Team Providers Name Role Phone Unavailable Unavailable Unavailable Problems Condition Condition Condition Status Onset Resolution Last Treating Co mments Source Name Details Category Date Date Treatment Clinician Date Congestion Congestion Problem Active [facility] nasal [facility] - sinus sinus [facility] Uncomplica Uncomplica Problem Active [facility] jose a asthma jose a asthma Donna kes - [facility] Depression Depression Problem Active [facility] with with [facility] - anxiety anxiety 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 Medications Ordered Filled Start Stop Current Ordering Indication Dosage Frequency Signature Comments Components Source Medication Medication Date Date Medication? Clinician (SIG) Name Name Antonio Alvarez Yes Ciera [address] [facility] 1[facility]14 [facility] - 00:00: [facility] 00 [facility] ProAir HFA ProAir HFA Yes Ciera (Prior [facility] Auth: Rx [facility] - Ref#:[id number] [facility] 40) l Outpati ent Clinics Advair HFA Advair HFA Yes Ciera (Prior [facility] Auth: Rx [facility] - Ref#:[id number] [facility] 39) l Outpati ent Clinics Procedures This patient has no known procedures. Encounters Start End Encounter Admission Attending Care Care Encounter Source Date/Time Date/Time Type Type Clinicians Facility Department ID 2019-10-02 2019-10-02 [facility] [id number] [facility] 14[facility]00[facility]00 14[facility]00[facility]00 [facility] Medicine Outpati ent Clinics 2019-10-01 2019-10-01 [facility] [id number] [facility] 09:40:00 09:40:00 [facility] Medicine Outpat[facility] Clinics 2019-09-28 2019-09-28 [facility] [id number] [facility] 14:29:00 14:29:00 [facility] Medicine Outpati [facility] Clinics 2019-06-22 2019-06-22 [facility] [id number] [facility] 11:00:00 11:00:00 [facility] Medicine Outpati [facility] Clinics 2019-06-19 2019-06-19 [facility] [id number] [facility] 14[facility]01:00 14:01:00 [facility] Medicine Outpati [facility] Clinics 2019-04-07 2019-04-07 [facility] [id number] [facility] 11[facility]00:00 11:00:00 [facility] Medicine Outpat[facility] Clinics Results This patient has no known results.
[2020-01-25] MEDS ORDERED: AZITHROMYCIN 250 MG TAB ONE (09:51)
--- NOTE | 2020-01-25 10:31 | EDPHYS ---
Physician Documentation [facility] Name: Deric Barry Age: 24 yrs Sex: Female : 1995 Arrival Date: 01/25/2020 Time: 08:42 Bed 18 Private MD: ED Physician Agustin Smith HPI: 01/24 09:34 This 24 yrs old Female presents to ER via Ambulatory with complaints of Sore mendel Throat, Chest Tightness, Body Aches. 09:34 The patient presents with sore throat. The patient describes throat pain as dry. Onset: mendel The symptoms/episode began/occurred 2 day(s) ago. Severity of symptoms: At their worst the symptoms were mild, in the emergency department the symptoms are unchanged. Modifying factors: The symptoms are alleviated by nothing, the symptoms are aggravated by fluids. Associated signs and symptoms: The patient has no apparent associated signs or symptoms. The patient has not experienced similar symptoms in the past. 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 - Social history:: Smoking status: Patient denies any tobacco usage or history of. - Family history:: not pertinent. ROS: 09:34 Constitutional: Negative for fever, chills, and weight loss, Eyes: Negative for injury, mendel pain, redness, and discharge, ENT: Negative for injury, pain, and discharge, Neck: Negative for injury, pain, and swelling, Cardiovascular: Negative for chest pain, palpitations, and edema, Abdomen/GI: Negative for abdominal pain, nausea, vomiting, diarrhea, and constipation, Back: Negative for injury and pain, : Negative for injury, bleeding, discharge, and swelling, MS/Extremity: Negative for injury and deformity, Skin: Negative for injury, rash, and discoloration, Neuro: Negative for headache, weakness, numbness, tingling, and seizure, Psych: Negative for depression, anxiety, suicide ideation, homicidal ideation, and hallucinations, Allergy/Immunology: Negative for hives, rash, and allergies, Endocrine: Negative for neck swelling, polydipsia, polyuria, polyphagia, and marked weight changes, Hematologic/Lymphatic: Negative for swollen nodes, abnormal bleeding, and unusual bruising. 09:34 Respiratory: Positive for cough, with no reported sputum. Exam: 09:34 Constitutional: This is a well developed, well nourished patient who is awake, alert, mendel and in no acute distress. Head/Face: Normocephalic, atraumatic. Eyes: Pupils equal round and reactive to light, extra-ocular motions intact. Lids and lashes normal. Conjunctiva and sclera are non-icteric and not injected. Cornea within normal limits. Periorbital areas with no swelling, redness, or edema. ENT: Nares patent. No nasal discharge, no septal abnormalities noted. Tympanic membranes are normal and external auditory canals are clear. Oropharynx with no redness, swelling, or masses, exudates, or evidence of obstruction, uvula midline. Mucous membranes moist. Neck: Trachea midline, no thyromegaly or masses palpated, and no cervical lymphadenopathy. Supple, full range of motion without nuchal rigidity, or vertebral point tenderness. No Meningismus. Chest/axilla: Normal chest wall appearance and motion. Nontender with no deformity. No lesions are appreciated. Respiratory: Lungs have equal breath sounds bilaterally, clear to auscultation and percussion. No rales, rhonchi or wheezes noted. No increased work of breathing, no retractions or nasal flaring. Abdomen/GI: Soft, non-tender, with normal bowel sounds. No distension or tympany. No guarding or rebound. No evidence of tenderness throughout. Back: No spinal tenderness. No costovertebral tenderness. Full range of motion. Skin: Warm, dry with normal turgor. Normal color with no rashes, no lesions, and no evidence of cellulitis. MS/ Extremity: Pulses equal, no cyanosis. Neurovascular intact. Full, normal range of motion. Neuro: Awake and alert, GCS 15, oriented to person, place, time, and situation. Cranial nerves II-XII grossly intact. Motor strength 5/5 in all extremities. Sensory grossly intact. Cerebellar exam normal. Normal gait. Psych: Awake, alert, with orientation to person, place and time. Behavior, mood, and affect are within normal limits. 09:34 Cardiovascular: Rate: normal, Rhythm: regular, Pulses: no pulse deficits are appreciated, Heart sounds: murmur, diastolic, rub, not appreciated, gallop, not appreciated, S1, normal, S2, normal, Edema: is not appreciated, JVD: is not appreciated. Vital Signs: 08:50 BP 120 / 80; Pulse 88; Resp 16; Temp 98.3; Pulse Ox 100% on R/A; Pain 7/10; hb 11:04 BP 126 / 74; Pulse 77; Resp 17; Pulse Ox 100% ; ll1 MDM: 08:51 Patient medically screened. [facility] 09:37 Differential diagnosis: group A strep tonsillitis, influenza, laryngitis, pharyngitis, mendel tonsillitis, upper respiratory infection. Data reviewed: vital signs, nurses notes, lab test result(s), Flu: negative radiologic studies, plain films. Data interpreted: teletypesetter monitor: rate is 88 beats/min, rhythm is regular, Pulse oximetry: on room air is 100 %. Test interpretation: by ED physician or midlevel provider: plain radiologic studies. Counseling: I had a detailed discussion with the patient and/or guardian regarding: the historical points, exam findings, and any diagnostic results supporting the discharge/admit diagnosis, lab results, radiology results. 01/24 09:34 Order name: Strep [facility] 01/24 09:34 Order name: Influenza Screen (a \T\ B) [facility] 01/24 09:34 Order name: Chest Pa And Lat (2 Views) XRAY; Complete Time: 11:09 [facility] 01/24 11:32 Order name: SARS-COV-2 RT PCR; Complete Time: 11:33 [facility] 01/24 11:41 Order name: Throat Culture [facility] Administered Medications: 09:50 Drug: Zithromax 500 mg Route: PO; sv 10:39 Follow up: Response: No adverse reaction; RASS: Alert and Calm (0) ll1 Disposition: 01/25/20 10:31 Discharged to Home. Impression: Cough, Acute upper respiratory infection, unspecified. - Condition is Stable. - Discharge Instructions: Upper Respiratory Infection, Adult, Cool Mist Vaporizer, Cough, Adult, [id number], Cough, Adult. - Prescriptions for Medrol (Nadeem) 4 mg Oral Tablets, Dose Pack - take 1 tablet by ORAL route as directed - follow package instructions; 1 packet. Guaifenesin AC 10- 100 mg/5 mL Oral Liquid - take 10 milliliters by ORAL route every 4 hours As needed; 160 milliliter. Zithromax 500 mg Oral Tablet - take 1 tablet by ORAL route once daily for 4 days; 4 tablet. - Work release form, Medication Reconciliation Form, Thank You Letter, Antibiotic Education, Prescription Opioid Use form. - Follow up: Private Physician; When: 2 - 3 days; Reason: Recheck today's complaints, Continuance of care, Re-evaluation by your physician. Follow up: Antonio Burks MD; When: 2 - 3 days; Reason: Recheck today's complaints, Continuance of care, Re-evaluation by your physician. - Problem is new. - Symptoms have improved. Signatures: Dispatcher [employer] [facility] Glenys Dennis RN RN sv Anderson, Corey, MD MD cha Baxter, Heather, RN RN hb Lewis, Lynsay, RN RN ll1 Corrections: (The following items were deleted from the chart) 10:28 09:34 CORONAVIRUS+LAB.BRZ ordered. [facility] 11:42 10:31 01/25/2020 10:31 Discharged to Home. Impression: Cough; Acute upper respiratory ll1 infection, unspecified. Condition is Stable. Discharge Instructions: Upper Respiratory Infection, Adult, Cool Mist Vaporizer, Cough, Adult, Iekj-oc-Stxm, Cough, Adult. Prescriptions for Medrol (Nadeem) 4 mg Oral Tablets, Dose Pack - take 1 tablet by ORAL route as directed - follow package instructions; 1 packet, Guaifenesin AC 10-100 mg/5 mL Oral Liquid - take 10 milliliters by ORAL route every 4 hours As needed; 160 milliliter, Zithromax 500 mg Oral Tablet - take 1 tablet by ORAL route once daily for 4 days; 4 tablet. and Forms are Medication Reconciliation Form, Thank You Letter, Antibiotic Education, Prescription Opioid Use. Follow up: Private Physician; When: 2 - 3 days; Reason: Recheck today's complaints, Continuance of care, Re-evaluation by your physician. Follow up: Antonio Burks; When: 2 - 3 days; Reason: Recheck today's complaints, Continuance of care, Re-evaluation by your physician. Problem is new. Symptoms have improved. mendel
--- NOTE | 2020-01-25 10:31 | ER ---
Nurse's Notes [facility] Name: Deric Barry Age: 24 yrs Sex: Female : 1995 Arrival Date: 01/25/2020 Time: 08:42 Bed 18 Private MD: Diagnosis: Cough;Acute upper respiratory infection, unspecified Presentation: 01/24 08:50 Chief complaint: Sore throat, chest tightness, SOB, and body aches x 2-3 days. hb Coronavirus screen: congestion, cough unrelated to allergies, difficulty breathing, muscle pain, shortness of breath, sore throat, Client presents with at least one sign or symptom that may indicate coronavirus-19. Standard/surgical mask placed on the client. Provider contacted for isolation considerations. Ebola Screen: No symptoms or risks identified at this time. Initial Sepsis Screen: Does the patient meet any 2 criteria? No. Patient's initial sepsis screen is negative. Does the patient have a suspected source of infection? No. Patient's initial sepsis screen is negative. Risk Assessment: Do you want to hurt yourself or someone else? Patient reports no desire to harm self or others. Onset of symptoms was January 23, 2020. 08:50 Method Of Arrival: Ambulatory hb 08:51 Acuity: DOLLY 3 hb Triage Assessment: 11:05 General: Appears uncomfortable, Behavior is calm, cooperative, appropriate for age. 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 - Social history:: Smoking status: Patient denies any tobacco usage or history of. - Family history:: not pertinent. Screenin:52 Abuse screen: Denies threats or abuse. Denies injuries from another. Nutritional sv screening: No deficits noted. Tuberculosis screening: No symptoms or risk factors identified. Fall Risk None identified. Assessment: 09:50 Reassessment: COVID-19 sent to lab. sv 10:50 Reassessment: Patient and/or family updated on plan of care and expected duration. Pain ll1 level reassessed. Patient is alert, oriented x 3, equal unlabored respirations, skin warm/dry/pink. 11:04 Pain: Denies pain. Neuro: No deficits noted. Cardiovascular: No deficits noted. ll1 Respiratory: Airway is patent Trachea midline Respiratory effort is even, unlabored, Respiratory pattern is regular, symmetrical, Sputum is clear Breath sounds are clear bilaterally. EENT: Nares are clear Throat is clear Reports nasal congestion. 11:41 Reassessment: Patient and/or family updated on plan of care and expected duration. Pain ll1 level reassessed. Patient is alert, oriented x 3, equal unlabored respirations, skin warm/dry/pink. Vital Signs: 08:50 BP 120 / 80; Pulse 88; Resp 16; Temp 98.3; Pulse Ox 100% on R/A; Pain 7/10; hb 11:04 BP 126 / 74; Pulse 77; Resp 17; Pulse Ox 100% ; ll1 ED Course: 08:42 Patient arrived in ED. ds1 08:51 Agustin Smith MD is Attending Physician. mendel 08:51 Glenys Dennis, WILL is Primary Nurse. sv 08:52 Triage completed. hb 08:52 Arm band placed on Patient placed in an exam room, on a stretcher. sv 08:52 Patient has correct armband on for positive identification. Bed in low position. Call sv light in reach. Pulse ox on. NIBP on. Door closed. Head of bed elevated. Patient placed on droplet and contact precautions with eye protection. 09:23 Awaiting ED provider evaluation. sv 09:26 ED physician to see patient. sv 09:50 Flu and/or RSV swab sent to lab. Strep swab sent to lab. sv 09:52 Patient moved to radiology via wheelchair. sv 09:58 Chest Pa And Lat (2 Views) XRAY In Process Unspecified. EDMS 10:31 Antonio Burks MD is Referral Physician. mendel 11:05 No provider procedures requiring assistance completed. Patient did not have IV access ll1 during this emergency room visit. 19:00 Primary Nurse role handed off by Glenys Dennis, WILL sv Administered Medications: 09:50 Drug: Zithromax 500 mg Route: PO; sv 10:39 Follow up: Response: No adverse reaction; RASS: Alert and Calm (0) ll1 Outcome: 10:31 Discharge ordered by . mendel 11:05 Discharged to home ambulatory. ll1 11:05 Condition: stable 11:05 Discharge instructions given to patient, Instructed on discharge instructions, follow up and referral plans. no drinking with medication, no driving heavy equipment, medication usage, Demonstrated understanding of instructions, follow-up care, medications, Prescriptions given X 3. 11:42 Patient left the ED. ll1 Signatures: Dispatcher [employer] EDGlenys Monge RN RN Agustin Gifford MD MD cha Sanford, Lo ds1 Gill Coker RN RN hb Lewis, Lynsay, RN RN 1
--- NOTE | 2020-01-25 10:35 | RAD REPORT ---
EXAM DESCRIPTION: RAD - Chest Pa And Lat (2 Views) - 01/25/2020 9:58 am CLINICAL HISTORY: COUGH Chest pain. COMPARISON: Chest Pa And Lat (2 Views) dated 05/16/2018; Chest Pa And Lat (2 Views) dated 03/19/2018; Chest Single View dated 09/05/2015; CHEST PA AND LAT 2 VIEW dated 05/14/2008 FINDINGS: The lungs are clear. The heart is normal in size. Sternotomy wires are present. Small shor t-segment stent is present in the thoracic aorta. Small surgical clips are present adjacent to the ao rta.
[2020-01-25 11:51] VITALS: TEMP 98.3; O2SAT 100
[2020-01-25 12:00] VITALS: BP 126/74
== END 2020-01-25 11:42 | disposition home or self-care (01) ==
LOC: ER 08:39
DX: J06.9 Acute upper respiratory infection, unspecified (principal); Z20.828 Contact with and (suspected) exposure to other viral communicable diseases; J45.909 Unspecified asthma, uncomplicated; Z88.8 Allergy status to other drugs, medicaments and biological substances; Z95.4 Presence of other heart-valve replacement
CPT/HCPCS: 87070; 87081; 87804 ×2; 71046; 99284; U0003

== ENCOUNTER 2020-08-04 15:06 | Emergency (ER) | payer OTHER ==
--- OUTSIDE RECORDS SUMMARY | 2020-08-04 15:09 | XMS REPORT | Continuity of Care Document ---
:1995 Author Organization [facility] t Address [address] [place] [address] Care Team Providers Name Role Phone Arnel CHAPMAN Attending Clinician Lc CHAPMAN, R Attending Clinician Patrice CHAPMAN Attending Clinician Problems Condition Condition Condition Status Onset Resolution Last Treating Co mments Source Name Details Category Date Date Treatment Clinician Date Congestion Congestion Problem Active [facility] Uncomplica Uncomplica Problem Active [facility] jose a asthma jose a asthma Donna kes - [facility] Depression Depression Problem Active [facility] with [facility] anxiety anxiety [facility] Constipati Constipati Problem Active [facility] Heart Heart Problem Active [facility] disease disease [facility] Seasonal Seasonal Problem [facility] - perennial perennial Josse ajnu allergic allergic l rhinitis rhinitis Outpat i ent Clinics Dry cough Dry cough Problem Active [facility] Fatigue, Fatigue, Diagnosis Active [facility] unspecifie unspecifie Donna kes - d type d type [facility] SOB SOB Diagnosis Active [facility] (shortness (shortness Donna kes - of breath) of breath) [facility] COVID-19 COVID-[address] [facility] ruled out ruled out [facility] Allergies, Adverse Reactions, Alerts This patient has no known allergies or adverse reactions. Medications Ordered Filled Start Stop Current Ordering Indication Dosage Frequency Signature Comments Components Source Medication Medication Date Date Medication? Clinician (SIG) Name Name Antonio Alvarez Yes Ciera [address] [facility] 1[facility]14 [place] [facility] ProAir HFA ProAir HFA Yes Ciera (Prior [facility] [place] Auth: Rx [facility] - Ref#:[id number] [facility] Advair HFA Advair HFA Yes Ciera (Prior [facility] [place] Auth: Rx [facility] Ref#:[id number] [facility] Procedures This patient has no known procedures. Encounters Start End Encounter Admission Attending Care Care Encounter Source Date/Time Date/Time Type Type Clinicians Facility Department ID 2020-08-02 2020-08-02 Telephone [facility] [id number] 00:00:00 00:00:[address] [facility] [id number] [facility] [id number] 2020-07-18 2020-07-18 Office [facility] [id number] 10:54:04 11:57:47 Visit Addy MARTINEZ [id number] [facility] [id number] [facility] [id number] [facility] 2020-07-13 2020-07-13 Telephone [facility] [id number] 00:00:00 00:00:00 Addy Pink [id number] [facility] [id number] [facility] [id number] [facility] 2020-05-19 2020-05-19 Office [facility] [id number] 13:48:40 16:45:35 Visit AMBULATOR [id number] Y [id number] 2019-10-02 2019-10-02 [facility] [id number] [facility] 14:00:00 14:00:00 [facility] Outpat[facility] Clin[facility] 2019-10-01 2019-10-01 [facility] [id number] [address] 09:40:00 09:40:00 [facility] 2019-09-28 2019-09-28 [facility] [id number] [address] 14:29:00 14:29:00 [facility] Out[facility] 2019-06-22 2019-06-22 [facility] [id number] [address] 11:00:00 11:00:00 [facility] Outpat[facility] Clin[facility] 2019-06-19 2019-06-19 [facility] [id number] [address] 14:01:00 14:01:00 [facility] 2019-04-07 2019-04-07 [facility] [id number] 11:00:00 11:00:00 [facility] Results This patient has no known results.
[2020-08-04] MEDS ORDERED: ACETAMINOPHEN 160 MG/5 ML UCUP ONE (17:03)
[2020-08-04 17:45] LABS: SARS-COV-2 RT PCR NEGATIVE (NEGATIVE)
--- NOTE | 2020-08-04 18:20 | EDPHYS ---
Physician Documentation [facility] Name: Deric Barry Age: 25 yrs Sex: Female : 1995 Arrival Date: 08/04/2020 Time: 15:07 Bed 16 Private MD: ED Physician Agustin Smith HPI: 08/04 17:05 This 25 yrs old Female presents to ER via Ambulatory with complaints of Sore cp Throat, body aches. 17:05 The patient presents with sore throat. Onset: The symptoms/episode began/occurred 2 cp day(s) ago. Severity of symptoms: in the emergency department the symptoms are unchanged. Associated signs and symptoms: Pertinent positives: cough, earache, body aches, Pertinent negatives fever, headache. KEEPER HEAD: 15:36 LMP 04/2020 jl7 Historical: - Allergies: 15:36 Spiriva with HandiHaler; jl7 - Home Meds: 15:36 Advair Diskus 100-50 mcg/dose Inhl dsdv 1 puff 2 times per day [Active]; jl7 - PMHx: 15:36 Asthma; PA with VSD; jl7 - PSHx: 15:36 pulmonary valve replacement; Cholecystectomy; jl7 - Immunization history:: Adult Immunizations up to date. - Social history:: Smoking status: Patient denies any tobacco usage or history of. ROS: 17:10 Constitutional: Positive for body aches, Negative for chills, fever, poor PO intake. cp 17:10 Eyes: Negative for injury, pain, redness, and discharge. cp 17:10 ENT: Positive for ear pain, sore throat, Negative for drainage from ear(s), difficulty swallowing, difficulty handling secretions. 17:10 Cardiovascular: Negative for chest pain. 17:10 Respiratory: Positive for cough, "sounds productive", Negative for shortness of breath, wheezing. 17:10 Abdomen/GI: Negative for abdominal pain, nausea, vomiting, and diarrhea. 17:10 Skin: Negative for rash. 17:10 Neuro: Negative for headache. 17:10 All other systems are negative. Exam: 17:15 Constitutional: The patient appears in no acute distress, alert, awake, non-toxic, well cp developed, well nourished. 17:15 Head/Face: Normocephalic, atraumatic. cp 17:15 Eyes: Periorbital structures: appear normal, Conjunctiva: normal, no exudate, no injection, Sclera: no appreciated abnormality, Lids and lashes: appear normal, bilaterally. 17:15 ENT: External ear(s): are unremarkable, Ear canal(s): are normal, clear, TM's: erythema, that is mild, on the left, Nose: is normal, Mouth: Lips: moist, Oral mucosa: moist, Posterior pharynx: Airway: no evidence of obstruction, patent, Tonsils: with erythema, no enlargement, no exudate, Uvula: midline, erythema, that is mild, exudate, is not appreciated. 17:15 Neck: ROM/movement: is normal, is supple, without pain, no range of motions limitations, no meningismus, Lymph nodes: no appreciated lymphadenopathy. 17:15 Chest/axilla: Inspection: normal. 17:15 Cardiovascular: Rate: normal, Rhythm: regular. 17:15 Respiratory: the patient does not display signs of respiratory distress, Respirations: normal, no use of accessory muscles, no retractions, labored breathing, is not present, Breath sounds: are clear throughout, no decreased breath sounds, no stridor, no wheezing. Vital Signs: 15:33 BP 106 / 63; Pulse 71; Resp 15; Temp 97.9(TE); Pulse Ox 99% on R/A; Weight 86.18 kg; jl7 Height 5 ft. 1 in. (154.94 cm); Pain 6/10; 16:08 BP 100 / 67; Pulse 68; Resp 18; Pulse Ox 100% on R/A; vg1 17:24 BP 100 / 56; Pulse 66; Resp 14; Pulse Ox 100% on R/A; vg1 18:17 BP 100 / 63; Pulse 68; Resp 16; Pulse Ox 100% on R/A; vg1 15:33 Body Mass Index 35.90 (86.18 kg, 154.94 cm) [facility] MDM: 15:41 Patient medically screened. mendel 17:30 Differential diagnosis: group A strep tonsillitis, influenza, santiago's angina, cp peritonsillar abscess pharyngitis, retropharyngeal abcess tonsillitis, upper respiratory infection, COVID-19. 18:07 Data reviewed: vital signs, nurses notes, lab test result(s). cp 18:07 Counseling: I had a detailed discussion with the patient and/or guardian regarding: the cp historical points, exam findings, and any diagnostic results supporting the discharge/admit diagnosis, lab results, to return to the emergency department if symptoms worsen or persist or if there are any questions or concerns that arise at home. ED course: VSS. Patient appears non-toxic and no signs of respiratory distress. Will discharge to home for continued monitoring. 08/04 17:02 Order name: Group A Streptococcus Rapid Sc; Complete Time: 17:37 EDMS 08/04 17:37 Interpretation: Reviewed. cp 08/04 17:25 Order name: Throat Culture EDMS 08/04 17:45 Order name: COVID-19/FLU A+B EDNE Administered Medications: No medications were administered Disposition: 08/04/20 18:08 Discharged to Home. Impression: Otitis media, unspecified, left ear, Cough. - Condition is Stable. - Discharge Instructions: Otitis Media, Adult, Cough, Adult. - Prescriptions for Amoxicillin 875 mg Oral Tablet - take 1 tablet by ORAL route every 12 hours for 10 days; 20 tablet. Tessalon Perles 100 mg Oral Capsule - take 2 capsule by ORAL route every 8 hours As needed; 30 capsule. - Medication Reconciliation Form, Thank You Letter, Antibiotic Education, Prescription Opioid Use form. - Follow up: Private Physician; When: 2 - 3 days; Reason: Worsening of condition. - Problem is new. - Symptoms have improved. Addendum: 08/06/2020 07:38 Co-signature as Attending Physician, Agustin Smith MD I agree with the assessment and c jurado plan of care. Signatures: Dispatcher [employer] [facility] Agustin Smith MD MD cha Page, Corey, PA PA Elizabeth Bowling, RN RN jl7 Dia Rizo RN RN vg1 Corrections: (The following items were deleted from the chart) 08/04 18:18 18:08 08/04/2020 18:08 Discharged to Home. Impression: Otitis media, unspecified, left vg1 ear; Cough. Condition is Stable. Forms are Medication Reconciliation Form, Thank You Letter, Antibiotic Education, Prescription Opioid Use. Follow up: Private Physician; When: 2 - 3 days; Reason: Worsening of condition. Problem is new. Symptoms have improved. cp
--- NOTE | 2020-08-04 18:20 | ER ---
Nurse's Notes [facility] Name: Deric Barry Age: 25 yrs Sex: Female : 1995 Arrival Date: 08/04/2020 Time: 15:07 Bed 16 Private MD: Diagnosis: Otitis media, unspecified, left ear;Cough Presentation: 08/04 15:33 Chief complaint: Patient states: Cough, sore throat, body aches, chest pressure x 2 jl7 days. Coronavirus screen: Client denies travel out of the [place] in the last 14 days. cough unrelated to allergies, sore throat, Client presents with at least one sign or symptom that may indicate coronavirus-19. Standard/surgical mask placed on the client. Provider contacted for isolation considerations. Ebola Screen: No symptoms or risks identified at this time. Initial Sepsis Screen: Does the patient meet any 2 criteria? No. Patient's initial sepsis screen is negative. Does the patient have a suspected source of infection? No. Patient's initial sepsis screen is negative. Risk Assessment: Do you want to hurt yourself or someone else? Patient reports no desire to harm self or others. Onset of symptoms was August 02, 2020. Care prior to arrival: None. 15:33 Method Of Arrival: Ambulatory jl7 15:33 Acuity: DOLLY 3 jl7 Triage Assessment: 15:36 General: Appears in no apparent distress. uncomfortable, Behavior is calm, cooperative, jl7 appropriate for age. Pain: Complains of pain in mid-sternal area Pain currently is 6 out of 10 on a pain scale. EENT: Reports sore throat. 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 - Social history:: Smoking status: Patient denies any tobacco usage or history of. Screenin:18 Abuse screen: Denies threats or abuse. Nutritional screening: No deficits noted. vg1 Tuberculosis screening: No symptoms or risk factors identified. Fall Risk None identified. Assessment: 16:07 General: Appears in no apparent distress. comfortable, Behavior is calm, cooperative. vg1 Pain: Complains of pain in Pt states 'all over body pain' Pain currently is 6 out of 10 on a pain scale. Neuro: Level of Consciousness is awake, alert, obeys commands, Oriented to person, place, time, situation. Cardiovascular: Patient's skin is warm and dry. Respiratory: Reports shortness of breath cough that is dry, pain with cough Airway is patent Respiratory effort is even, unlabored, Breath sounds are clear bilaterally. GI: No signs and/or symptoms were reported involving the gastrointestinal system. : No signs and/or symptoms were reported regarding the genitourinary system. EENT: Throat is reddened. Derm: Skin is intact, is healthy with good turgor. Musculoskeletal: Circulation, motion, and sensation intact. 17:23 Reassessment: Patient appears in no apparent distress at this time. Patient and/or vg1 family updated on plan of care and expected duration. Pain level reassessed. Patient is alert, oriented x 3, equal unlabored respirations, skin warm/dry/pink. 18:17 Reassessment: Patient appears in no apparent distress at this time. Patient and/or vg1 family updated on plan of care and expected duration. Pain level reassessed. Patient is alert, oriented x 3, equal unlabored respirations, skin warm/dry/pink. Vital Signs: 15:33 BP 106 / 63; Pulse 71; Resp 15; Temp 97.9(TE); Pulse Ox 99% on R/A; Weight 86.18 kg; jl7 Height 5 ft. 1 in. (154.94 cm); Pain 6/10; 16:08 BP 100 / 67; Pulse 68; Resp 18; Pulse Ox 100% on R/A; vg1 17:24 BP 100 / 56; Pulse 66; Resp 14; Pulse Ox 100% on R/A; vg1 18:17 BP 100 / 63; Pulse 68; Resp 16; Pulse Ox 100% on R/A; vg1 15:33 Body Mass Index 35.90 (86.18 kg, 154.94 cm) jl7 ED Course: 15:07 Patient arrived in ED. ds1 15:35 Triage completed. jl7 15:36 Arm band placed on right wrist. jl7 15:38 Agustin Peña PA is PHCP. cp 15:38 Agustin Smith MD is Attending Physician. cp 16:00 Dia Rizo, RN is Primary Nurse. vg1 16:41 Patient has correct armband on for positive identification. Placed in gown. Bed in low mh5 position. Call light in reach. Side rails up X 1. Pillow given. Pulse ox on. NIBP on. 16:41 COVID swab sent to lab. Flu and/or RSV swab sent to lab. Strep swab sent to lab. mh5 18:18 No provider procedures requiring assistance completed. Patient did not have IV access vg1 during this emergency room visit. Administered Medications: No medications were administered Outcome: 18:08 Discharge ordered by . cp 18:18 Discharged to home ambulatory. vg1 18:18 Condition: stable 18:18 Discharge instructions given to patient, Instructed on discharge instructions, follow up and referral plans. medication usage, Demonstrated understanding of instructions, follow-up care, medications, Prescriptions given X 2. 18:18 Patient left the ED. vg1 Signatures: Lo Cole ds1 Agustin Peña PA PA Dinorah Gonzalez [facility] Elizabeth Robertson RN RN Dia Galeana, WILL RN vg1 Corrections: (The following items were deleted from the chart) 16:09 16:07 Respiratory: Airway is patent Respiratory effort is even, unlabored, Breath vg1 sounds are clear bilaterally. vg1 17:24 16:30 BP 124 / 82; Pulse 59bpm; Resp 14bpm; Pulse Ox 98% RA; vg1 vg1
[2020-08-04 19:55] VITALS: TEMP 97.9
[2020-08-04 19:57] VITALS: O2SAT 100
[2020-08-04 20:00] VITALS: BP 100/63
== END 2020-08-04 18:18 | disposition home or self-care (01) ==
LOC: ER 15:06
DX: H66.92 Otitis media, unspecified, left ear (principal); J45.909 Unspecified asthma, uncomplicated; Z20.822 Contact with and (suspected) exposure to COVID-19; Z88.8 Allergy status to other drugs, medicaments and biological substances
CPT/HCPCS: 87070; 87081; 0240U; 99283

== ENCOUNTER 2020-11-30 17:13 | Emergency (ER) | payer OTHER ==
--- OUTSIDE RECORDS SUMMARY | 2020-11-30 17:17 | XMS REPORT | Continuity of Care Document ---
:1995 [facility] t Address [address] [place] [address] Care Team Providers Name Role Phone Soledad Guillaume Primary Care Physician Angeles Ibrahim MD Attending Clinician PATRICE Attending Clinician Unavailable Arnel CHAPMAN Attending Clinician Joesph Platt MD Attending Clinician Patrice CHAPMAN Attending Clinician Payers Payer Name Policy Type Policy Number Effective Date Expiration Date [facility] [id number] 2019 [facility] 00:00:00 [facility] - [id number] 2016 2016 MEDICAID 00:00:00 00:00:00 Problems Condition Condition Condition Status Onset Resolution Last Treating Co mments Source Name Details Category Date Date Treatment Clinician Date Asthma Asthma Problem Active [facility] 8-24 da 00:00: Medical 00 Group Repair of Repair of Problem Active [facility] ventricula Ventricula 8-24 da r septal r Septal 00:00: Medica l defect Defect 00 Group with with prosthesis Prosthesis Repair of Repair of Problem Active [facility] pulmonary Pulmonary 8-24 da atresia Atresia 00:00: Medical 00 Group Congestion Congestion Problem Active [facility] Uncomplica Uncomplica Problem Active [facility] jose a asthma jose a asthma Donna kes - [facility] Depression Depression Problem Active [facility] with with [facility] - anxiety anxiety [facility] Constipati Constipati Problem Active C [facility] on on [facility] Heart Heart Problem Active [facility] disease disease [facility] Seasonal Seasonal Problem Active [facility] t and and [facility] - perennial perennial Josse anju allergic allergic l rhinitis rhinitis Outpat i ent Clinics Dry cough Dry cough Problem Active [facility] Fatigue, Fatigue, Diagnosis Active [facility] unspecifie unspecifie Donna kes - d type d type [facility] SOB SOB Diagnosis Active [facility] (shortness (shortness Donna kes - of breath) of breath) Me moria l [facility] ent Clinics COVID-19 COVID-[address] ruled out ruled out [facility] - [facility] Allergies, Adverse Reactions, Alerts Allergy Allergy Status Severity Reaction(s) Onset Inactive Treating Comm ents Source Name Type Date Date Clinician Spiriva Allergy Active [place] with to da Handihal substanc Medica l er e Group Social History Social Habit Start Date Stop Date Quantity Comments Source Sex Assigned At [facility] Smoking Status Start Date Stop Date Source Never [place] [facility] Medications Ordered Filled Start Stop Current Ordering Indication Dosage Frequency Signature Comments Components Source Medication Medication Date Date Medication? Clinician (SIG) Name Name Antonio Orantesmarcusgrant Yes Ciera [address] 1-14 [place] [facility] - 00:00: Memoria 00 l [facility] Clinics Advair HFA Advair HFA No Advair HFA [place] 230 mcg-21 230 mcg-21 230 mcg-21 da mcg/actuati mcg/actuati mcg/actuat Medical on aerosol on aerosol ion Rufina up inhaler inhaler aerosol inhaler albuterol albuterol No albuterol [place] sulfate HFA sulfate HFA sulfate da 90 90 HFA 90 Medical mcg/actuati mcg/actuati mcg/actuat Group on aerosol on aerosol ion inhaler inhaler aerosol inhaler furosemide furosemide No furosemide [place] 20 mg 20 mg 20 mg da tablet tablet tablet Medical Group ProAir HFA ProAir HFA Yes Ciera (Prior [facility] Auth: Rx [facility] - Ref#:[id number] Memoria 40) l [facility] Advair HFA Advair HFA Yes Ciera (Prior [facility] Auth: Rx [facility] - Ref#:[id number] Memoria 39) l [facility] Vital Signs Vital Name Observation Time Observation Value Comments Source BP Diastolic 2020-11-15 00:00:00 68 mm[facility]Hg[facility] Height 2020-11-15 00:00:00 61 [in_i] [facility] BMI (Body Mass 2020-11-15 00:00:00 42.3 kg/m2 [facility]) Group BP Systolic 2020-11-15 00:00:00 128 mm[Hg] [facility] Body Weight 2020-11-15 00:00:00 224 [lb_av] [facility] Procedures Procedure Date / Time Performed Performing Clinician Sour e XR CHEST 2 VIEWS 2020-11-09 12:20:00 Divine Ibrahim [facility] Plan of Care Planned Activity Planned Date Details Comments Source Future Scheduled 2023-02-23 DTAP/TDAP/TD VACCINES [facility] - Test 00:00:00 (2 - Td) [code = [facility] DTAP/TDAP/TD VACCINES (2 - Td)] Future Scheduled 2020-11-23 INFLUENZA VACCINE [facility] - Test 00:00:00 (#1) [code = [facility] INFLUENZA VACCINE (#1)] Diagnostic Test 2020-11-15 TSH, serum or plasma [facility] Pending 00:00:00 [code = TSH, serum or Group plasma] Diagnostic Test 2020-11-15 HbA1c (hemoglobin [place] [facility] Pending 00:00:00 A1c), blood [code = Group HbA1c (hemoglobin A1c), blood] Diagnostic Test 2020-11-15 CMP, serum or plasma [facility] Pending 00:00:00 [code = CMP, serum or Group plasma] Diagnostic Test 2020-11-15 lipid panel, serum [facility] Pending 00:00:00 [code = lipid panel, Group serum] Diagnostic Test 2020-11-15 CBC w/ auto diff [place] [facility] Pending 00:00:00 [code = CBC w/ auto Group diff] Diagnostic Test 2020-11-15 prealbumin, serum [place] Pending 00:00:00 [code = prealbumin, Group serum] Diagnostic Test 2020-11-15 iron + total [facility] Pending 00:00:00 iron-binding capacity Group (TIBC), serum [code = iron + total iron-binding capacity (TIBC), serum] Diagnostic Test 2020-11-15 vitamin B12, serum [facility] Pending 00:00:00 [code = vitamin B12, Group serum] Diagnostic Test 2020-11-15 ferritin, serum or [facility] Pending 00:00:00 plasma [code = Group ferritin, serum or plasma] Diagnostic Test 2020-11-15 folate, serum [code = [facility] Pending 00:00:00 folate, serum] Group Diagnostic Test 2020-11-15 retic count, blood [facility] Pending 00:00:00 [code = retic count, Group blood] Future Scheduled 2020-03-[address] [facility] - Test 00:00:00 (12+) [code = Medical Center DEPRESSION SCREENING (12+)] Future Scheduled 2016-06-[address] [facility] - Test 00:00:00 malignant neoplasm of Medica l Center cervix (procedure) [code = 964647274] Future Scheduled 2013-06-11 HEPATITIS C SCREENING [facility] - Test 00:00:00 [code = HEPATITIS C Medical Center SCREENING] Future Scheduled 2007 COVID-19 VACCINE (1) [facility] - Test 00:00:00 [code = COVID-[address] VACCINE (1)] Future Scheduled 2001-06-[address] [facility] - Test 00:00:00 0-64 YRS (1 of 1 - Medical C enter PPSV23) [code = PNEUMOCOCCAL VACCINE 0-64 YRS (1 of 1 - PPSV23)] Encounters Start End Encounter Admission Attending Care Care Encounter Source Date/Time Date/Time Type Type Clinicians Facility Department ID 2020-11-15 2020-11-15 Joseph [facility] [place] - [id number] M [facility] 00:00:00 00:00:00 Ajay Olguin MD: Medical Medica [address], [place] [address] , Ph. [phone] 2020-11-09 2020-11-09 Hospital [facility] [id number] 12:00:00 23:59:00 Encounter [facility] 2020-11-09 2020-11-09 Outpatient [facility] [id number] [facility] 12:36:38 14:54:20 [place] 2020-11-08 2020-11-08 Outside [facility] [id number] 00[facility]00[facility]00 00:00:00 Orders [facility] 2020-08-02 2020-08-02 Telephone DARRICK Seals [id number] 00:00:00 00:00:00 [facility] [id number] [facility] [id number] 2020-07-18 2020-07-18 Office [facility] [id number] 10:54:04 11:57:47 Visit Addy Pink [facility] [id number] [facility] [id number] [place] [id number] [facility] 2020-07-13 2020-07-13 Telephone [facility] [id number] 00:00:00 00:00:00 Addy Pink MULTISPEC [id number] IAL[facility] [id number] [place] [id number] [facility] 0[facility] 2020-05-19 2020-05-19 Office Patrice, [facility] [id number] 13:48:40 16:45:35 Visit AMBULATOR [id number] Y [id number] 2019-10-02 2019-10-02 [facility] [id number] 14:00:00 14:00:00 [facility] 2019-10-01 2019-10-01 [facility] [id number] 09:40:00 09:40:00 [facility] Outpati ent Clinics 2019-09-28 2019-09-28 [facility] [id number] 14:29:00 14:29:00 [facility] 2019-06-22 2019-06-22 [facility] [id number] 11:00:00 11:00:00 [facility] 2019-06-19 2019-06-19 [facility] [id number] 14:01:00 14:01:00 [facility] 2019-04-07 2019-04-07 [facility] [id number] 11:00:00 11:00:00 [facility] Results Test Description Test Time Test Comments Results Result Sourc e Comments RAD, CHEST, 2 2020-10-23 Reason for VIEWS 8 Exam:->Severe 13:30:00 persistent [facility] ST[facility] LEM[facility] : 1995 Sex: F FI NAL REPORT Exam: RAD, CHEST, 2 VIEWSDate: 11/09/2020 1:29 PM Indication: Severe persistent asthma Comparison: None FINDINGS: Lines/Tubes:None Lungs:The lungs are mildly hyperinflated. No focal consolidation or pulmonary edema. Pleura:No pleural effusion. No pneumothorax. Heart/Mediastinum:The cardiomediastinal silhouette is normal in size and contour. Atrophic occlusion device projects over the left upper mediastinum. Mediastinal clips and sternotomy wires in place. Bones/Soft Tissues: No acute osseous injury. 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 Abdomen: No free air below the diaphragm. IMPRESSION:Mildly hyperinflated lungs. No focal pneumonia or pulmonary edema. Signed: Yvette Nguyen Verified Date/Time: 11/09/2020 13:30:42 Chest 2 Views 2020-10-23 Interface, External [facility] 8 Ris In - 11/09/2020 [facility] - 13:30:00 1:32 PM CDTFINAL Medical REPORT PATIENT ID: Pryor [id number] Exam: RAD, CHEST, 2 VIEWSDate: 11/09/2020 1:29 PM Indication: Severe persistent asthma Comparison: None FINDINGS: Lines/Tubes:None Lungs:The lungs are mildly hyperinflated. No focal consolidation or pulmonary edema. Pleura:No pleural effusion. No pneumothorax. Heart/Mediastinum:The cardiomediastinal silhouette is normal in size and contour. Atrophic occlusion device projects over the left upper mediastinum. Mediastinal clips and sternotomy wires in place. Bones/Soft Tissues: No acute osseous injury. 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 Abdomen: No free air below the diaphragm.
--- NOTE | 2020-11-30 19:49 | RAD REPORT ---
EXAM DESCRIPTION: RAD - Chest Single View - 11/30/2020 7:25 pm CLINICAL HISTORY: DYSPNEA COMPARISON: Chest Pa And Lat (2 Views) dated 01/25/2020; Chest Pa And Lat (2 Views) dated 05/16/2018; Chest Pa And Lat (2 Views) dated 03/19/2018; Chest Single View dated 09/05/2015 FINDINGS: Lines: None. Lungs: No evidence of edema or pneumonia. Pleural: No significant pleural effusions or pneumothorax. Cardiac: Cardiomegaly. Sternotomy. Bones: No acute fractures. Remote right-sided rib fractures. Other: IMPRESSION: No acute cardiopulmonary disease.
[2020-11-30 20:31] LABS: Protime INR 0.99
[2020-11-30 20:35] LABS: Absolute Lymphocytes (CBC) 2.4 K/uL (0.7-4.9); Basophils % 0.7 % (0-1.3); Hematocrit 38.9 % (36.0-45.0); Lymphocytes % 24.8 % (15.3-44.8); MPV 7.9 fL (7.6-11.3); RBC Red Blood Cell Count 4.51 M/uL (3.86-4.86)
[2020-11-30 20:43] LABS: BUN Blood Urea Nitrogen 14 mg/dL (7-18); Bicarbonate 25 mmol/L (21-32); Glucose Level 76 mg/dL (74-106); NT PRO-BNP 69 pg/mL (<125); Potassium 3.9 mmol/L (3.5-5.1); Sodium Level 137 mmol/L (136-145); Troponin (Emerg Dept Use Only) < 0.02 ng/mL (0.0-0.045)
--- NOTE | 2020-11-30 21:33 | RAD REPORT ---
EXAM DESCRIPTION: CT - Chest For Pe Angio - 11/30/2020 9:23 pm CLINICAL HISTORY: Chest pain;Dyspnea COMPARISON: Chest Single View dated 11/30/2020 FINDINGS: Chest Wall: No suspicious thyroid nodules or pathologic lymphadenopathy. Lungs: No acute abnormality. Pleura: No significant effusions or pneumothorax. Mediastinum/nubia: No pathologic lymphadenopathy. Pulmonary arteries/Aorta: Left pulmonary artery stent. Limited evaluation of the segmental and subseg mental pulmonary arteries due to motion. No pulmonary embolus identified within these limitations. No aortic aneurysm. Heart: No significant pericardial effusion. Cardiomegaly. Upper abdomen: No acute abnormality. Bones: No acute abnormality. Scoliosis. All CT scans are performed using dose optimization technique as appropriate and may include automate d exposure control or mA/KV adjustment according to patient size. IMPRESSION: No central pulmonary embolus identified. Limited evaluation of the segmental and subsegm ental pulmonary arteries due to motion. No acute process identified.
--- NOTE | 2020-11-30 21:42 | EDPHYS ---
Physician Documentation [facility] Name: Deric Barry Age: 25 yrs Sex: Female : 1995 Arrival Date: 11/30/2020 Time: 17:14 Bed 10 Private MD: ED Physician Washington Nelson HPI: 11/30 20:27 This 25 yrs old Female presents to ER via Ambulatory with complaints of rn Shortness Of Breath, Numbness Of Arm, Chest Pain. 20:27 The patient has shortness of breath with light activity. rn 20:28 Onset: The symptoms/episode began/occurred 1 week(s) ago. Duration: The symptoms are rn intermittent. The patient's shortness of breath is aggravated by nothing, is alleviated by inhaler. Associated signs and symptoms: Pertinent positives: chest pain, non-productive cough, Pertinent negatives: dizziness, fever, hemoptysis, loss of consciousness. Severity of symptoms: At their worst the symptoms were moderate in the emergency department the symptoms have improved. The patient has experienced similar episodes in the past. The patient has not recently seen a physician. Patient reports approximately 1 week of shortness of breath, cough, chest tightness, not sure if it is her asthma acting up but inhaler is helping. No fever. No hemoptysis. No history of DVT or PE. Has had pulmonary valve replacement, not on anticoagulation. Takes diuretic and states has not missed any doses. Denies any swelling. Reports on her way here felt tingling of the right arm. States breathing much better after using inhaler.. 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 - Social history:: Smoking status: Patient denies any tobacco usage or history of. - Family history:: not pertinent. - Hospitalizations: : No recent hospitalization is reported. ROS: 20:28 Constitutional: Negative for fever, chills, and weight loss, Eyes: Negative for injury, rn pain, redness, and discharge, ENT: Negative for injury, pain, and discharge, Neck: Negative for injury, pain, and swelling, Cardiovascular: Negative for palpitations, and edema, Respiratory: Negative for wheezing, and pleuritic chest pain, Abdomen/GI: Negative for abdominal pain, nausea, vomiting, diarrhea, and constipation, Back: Negative for injury and pain, : Negative for injury, bleeding, discharge, and swelling, MS/Extremity: Negative for injury and deformity, Skin: Negative for injury, rash, and discoloration, Neuro: Negative for headache, weakness, and seizure. Exam: 20:28 Constitutional: This is a well developed, well nourished patient who is awake, alert, rn and in no acute distress. Head/Face: Normocephalic, atraumatic. Eyes: Pupils equal round and reactive to light, extra-ocular motions intact. Lids and lashes normal. Conjunctiva and sclera are non-icteric and not injected. Cornea within normal limits. Periorbital areas with no swelling, redness, or edema. ENT: No stridor Cardiovascular: Regular rate and rhythm. No pulse deficits. Respiratory: Speaking full sentences, unlabored. No increased work of breathing, no retractions or nasal flaring. Abdomen/GI: Soft, non-tender Skin: Warm, dry MS/ Extremity: Pulses equal, no cyanosis. Neurovascular intact. Full, normal range of motion. Equal circumference. Neuro: Awake and alert, GCS 15, oriented to person, place, time, and situation. Motor strength 5/5 in all extremities. Sensory grossly intact. 21:39 ECG was reviewed by the Attending Physician. rn Vital Signs: 17:17 BP 136 / 85; Pulse 99; Resp 19; Temp 97.9(TE); Pulse Ox 100% on R/A; Weight 99.79 kg tw2 (R); Height 5 ft. 1 in. (154.94 cm); 19:03 BP 110 / 75; Pulse 66; Resp 16; Pulse Ox 100% ; vg1 21:03 BP 108 / 75; Pulse 67; Resp 16; Pulse Ox 100% ; vg1 22:01 BP 112 / 58; Pulse 68; Resp 20; Pulse Ox 98% on R/A; vg1 17:17 Body Mass Index 41.57 (99.79 kg, 154.94 cm) tw2 MDM: 19:00 Patient medically screened. rn 21:39 Differential diagnosis: Bronchitis CHF exacerbation, Myocardial Infarction pneumonia, rn Pneumothorax pulmonary edema, Pulmonary Embolism. Antibiotic administration: Not indicated. Data reviewed: vital signs, nurses notes, lab test result(s), EKG, radiologic studies, CT scan, plain films, and as a result, I will discharge patient. Data interpreted: media monitor: rate is 67 beats/min, rhythm is normal sinus rhythm, regular, with no ectopy, Interpretation: normal rate, normal rhythm, Pulse oximetry: on room air is 100 %. Interpretation: normal. Test interpretation: by ED physician or midlevel provider: ECG, plain radiologic studies, X-ray negative for acute pneumonia or pneumothorax. Counseling: I had a detailed discussion with the patient and/or guardian regarding: the historical points, exam findings, and any diagnostic results supporting the discharge/admit diagnosis, lab results, radiology results, the need for outpatient follow up, to return to the emergency department if symptoms worsen or persist or if there are any questions or concerns that arise at home. Response to treatment: the patient's symptoms have mildly improved after treatment, and as a result, I will discharge patient. Special discussion: Based on the patient's history, exam, and Dx evaluation, there is no indication for emergent intervention or inpatient Tx. It is understood by the patient/guardian that if the Sx's persist or worsen they need to return immediately for re-evaluation. I discussed with the patient/guardian in detail that at this point there is no indication for admission to the hospital. It is understood, however, that if the symptoms persist or worsen the patient needs to return immediately for re-evaluation. ED course: No acute findings for shortness of breath or chest pain found here. Troponin negative, BNP negative, CT PE protocol negative. No oxygen requirement. Improved with inhalers will treat as asthma with return precautions.. 11/30 19:19 Order name: CBC with Diff rn 11/30 19:19 Order name: Basic Metabolic Panel; Complete Time: 21:38 rn 11/30 19:19 Order name: Protime (+inr); Complete Time: 21:38 rn 11/30 19:19 Order name: Ptt, Activated; Complete Time: 21:38 rn 11/30 19:19 Order name: Troponin (emerg Dept Use Only); Complete Time: 21:38 rn 11/30 18:33 Order name: CXR XRAY; Complete Time: 21:38 iw 11/30 19:19 Order name: IV Start; Complete Time: 19:54 rn 11/30 19:19 Order name: CT Chest For PE Angio; Complete Time: 21:38 rn 11/30 19:19 Order name: EKG; Complete Time: 19:20 rn 11/30 19:19 Order name: BNP; Complete Time: 21:38 rn 11/30 19:20 Order name: CBC with Automated Diff; Complete Time: 21:38 EDMS 11/30 20:28 Order name: SARS-COV-2 RT PCR; Complete Time: 21:38 EDMS 11/30 19:19 Order name: EKG - Nurse/Tech; Complete Time: 19:54 rn EC:39 Rate is 61 beats/min. Rhythm is regular. Right axis deviation noted. QRS is positive in rn lead aVF and negative in lead I. FL interval is normal. QRS interval is prolonged at 130 msec. QT interval is normal. No Q waves. T waves are Normal. No ST changes noted. Clinical impression: NSR w/ Non-specific ST/T Changes and RBBB. Interpreted by me. Reviewed by me. Administered Medications: 21:46 Drug: SOLU-Medrol (methylPrednisoLONE) 125 mg Route: IVP; Site: left forearm; kg 21:58 Follow up: Response: No adverse reaction vg1 Disposition Summary: 11/30/20 21:42 Discharge Ordered Location: Home rn Problem: new rn Symptoms: have improved rn Condition: Stable rn Diagnosis - Dyspnea, unspecified rn - Unspecified asthma with (acute) exacerbation rn - Chest pain, unspecified rn Followup: rn - With: Private Physician - When: As needed - Reason: Recheck today's complaints, Re-evaluation by your physician Discharge Instructions: - Discharge Summary Sheet rn - Asthma, Adult rn - Nonspecific Chest Pain, Adult rn Forms: - Medication Reconciliation Form rn - Thank You Letter rn - Antibiotic photo intern - Prescription Opioid Use rn Prescriptions: - Prednisone 20 mg Oral Tablet - take 3 tablets by ORAL route once daily for 5 days; 15 tablet; Refills: 0, rn Product Selection Permitted Signatures: Dispatcher [employer] Washington Saul MD MD rn Wise, Tara, RN RN 2 Angelique Miranda 2 Izabela Mendoza RN RN kg Garcia, Victoria RN vg1 Corrections: (The following items were deleted from the chart) 19:34 19:20 CORONAVIRUS+MR.LAB.BRZ ordered. EDMI EDMS
--- NOTE | 2020-11-30 21:42 | ER ---
Nurse's Notes [facility] Name: Deric Barry Age: 25 yrs Sex: Female : 1995 Arrival Date: 11/30/2020 Time: 17:14 Bed 10 Private MD: Diagnosis: Dyspnea, unspecified;Unspecified asthma with (acute) exacerbation;Chest pain, unspecified Presentation: 11/30 17:17 Chief complaint: Patient states: i have been having really bad chest pain. i have tw2 really bad asthma. and i am not sure that it is it. it has been like this for over a week. it got really bad yesterday. my RIGHT arm went numb on the way here. Coronavirus screen: At this time, the client does not indicate any symptoms associated with coronavirus-19. Ebola Screen: Patient denies travel to an Ebola-affected area in the 21 days before illness onset. Initial Sepsis Screen: Does the patient meet any 2 criteria? No. Patient's initial sepsis screen is negative. Does the patient have a suspected source of infection? No. Patient's initial sepsis screen is negative. Risk Assessment: Do you want to hurt yourself or someone else? Patient reports no desire to harm self or others. Onset of symptoms was November 30, 2020. 17:17 Method Of Arrival: Ambulatory tw2 17:17 Acuity: DOLLY 3 tw2 Triage Assessment: 17:23 General: Appears in no apparent distress. obese, well groomed, Behavior is calm, tw2 cooperative, appropriate for age. Pain: Denies pain. Respiratory: Reports shortness of breath at rest Onset: The symptoms/episode began/occurred , the patient has mild shortness of breath. 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 - Social history:: Smoking status: Patient denies any tobacco usage or history of. - Family history:: not pertinent. - Hospitalizations: : No recent hospitalization is reported. Screenin:03 Abuse screen: Denies threats or abuse. Nutritional screening: No deficits noted. vg1 Tuberculosis screening: No symptoms or risk factors identified. Fall Risk No fall in past 12 months (0 pts). No secondary diagnosis (0 pts). No IV (0 pts). Ambulatory Aid- None/Bed Rest/Nurse Assist (0 pts). Gait- Normal/Bed Rest/Wheelchair (0 pts) Mental Status- Oriented to own ability (0 pts). Total Rachel Fall Scale indicates No Risk (0-24 pts). Assessment: 18:50 General: Appears in no apparent distress. comfortable, Behavior is calm, cooperative. vg1 Pain: Denies pain. Neuro: Level of Consciousness is awake, alert, obeys commands, Oriented to person, place, time, situation, Reports headache. Cardiovascular: Patient's skin is warm and dry. Respiratory: Reports shortness of breath at rest on exertion cough that is dry, Airway is patent Respiratory effort is even, unlabored, Breath sounds are clear bilaterally. GI: Patient currently denies diarrhea, nausea, vomiting. : No signs and/or symptoms were reported regarding the genitourinary system. EENT: No signs and/or symptoms were reported regarding the EENT system. Derm: Skin is intact, is healthy with good turgor. Musculoskeletal: Circulation, motion, and sensation intact. 21:00 Reassessment: Patient appears in no apparent distress at this time. No changes from vg1 previously documented assessment. Patient and/or family updated on plan of care and expected duration. Pain level reassessed. Patient is alert, oriented x 3, equal unlabored respirations, skin warm/dry/pink. 21:58 Cardiovascular: Rhythm is. vg1 Vital Signs: 17:17 BP 136 / 85; Pulse 99; Resp 19; Temp 97.9(TE); Pulse Ox 100% on R/A; Weight 99.79 kg tw2 (R); Height 5 ft. 1 in. (154.94 cm); 19:03 BP 110 / 75; Pulse 66; Resp 16; Pulse Ox 100% ; vg1 21:03 BP 108 / 75; Pulse 67; Resp 16; Pulse Ox 100% ; vg1 22:01 BP 112 / 58; Pulse 68; Resp 20; Pulse Ox 98% on R/A; vg1 17:17 Body Mass Index 41.57 (99.79 kg, 154.94 cm) tw2 ED Course: 17:14 Patient arrived in ED. as 17:20 Triage completed. tw2 17:23 Arm band placed on. tw2 18:37 Dia Rizo RN is Primary Nurse. vg1 19:00 Washington Nelson MD is Attending Physician. rn 19:04 Patient has correct armband on for positive identification. Bed in low position. Call vg1 light in reach. 19:17 Primary Nurse role handed off by Dia Rizo RN mw2 19:25 CXR XRAY In Process Unspecified. EDMS 19:28 Dia Rizo RN is Primary Nurse. vg1 19:40 Missed attempt(s): 20 gauge in right antecubital area. vg1 19:54 Initial lab(s) drawn, by tx, sent to lab. Inserted saline lock: 22 gauge in left vg1 antecubital area, using aseptic technique. Blood collected. 21:23 CT Chest For PE Angio In Process Unspecified. EDMS 21:58 No provider procedures requiring assistance completed. IV discontinued, intact, vg1 bleeding controlled, No redness/swelling at site. Pressure dressing applied. Administered Medications: 21:46 Drug: SOLU-Medrol (methylPrednisoLONE) 125 mg Route: IVP; Site: left forearm; kg 21:58 Follow up: Response: No adverse reaction vg1 Outcome: 21:42 Discharge ordered by . rn 21:58 Discharged to home ambulatory. vg1 21:58 Condition: good 21:58 Discharge instructions given to patient, Instructed on discharge instructions, follow up and referral plans. Demonstrated understanding of instructions, follow-up care, medications, Prescriptions given X 1. 21:59 Patient left the ED. vg1 Signatures: Dispatcher [employer] EDMS Carol Chavez Roman, MD MD rn Wise, Tara, RN RN tw2 Angelique Miranda mw2 Dia Rizo RN RN 1 Izabela Mendoza RN RN kg
[2020-11-30 22:07] VITALS: TEMP 97.9; O2SAT 100
[2020-11-30] MEDS ORDERED: METHYLPREDNISOLONE 125 MG INJ ONE (22:07)
[2020-11-30 22:09] VITALS: BP 108/75
== END 2020-11-30 21:59 | disposition home or self-care (01) ==
LOC: ER 17:13
DX: J45.901 Unspecified asthma with (acute) exacerbation (principal); R06.00 Dyspnea, unspecified; R07.9 Chest pain, unspecified; Z20.822 Contact with and (suspected) exposure to COVID-19
CPT/HCPCS: 93005; 85025; 80048; 36415; 85610; 85730; 84484; 83880; 71275; 71045; 96374; 99284; U0003; Q9967; J2930

== ENCOUNTER 2021-02-13 17:15 | Emergency (ER) | payer OTHER ==
--- OUTSIDE RECORDS SUMMARY | 2021-02-13 17:20 | XMS REPORT | Continuity of Care Document ---
:1995 Author Organization [facility] Address [address] [place] [address] Care Team Providers Name Role Phone [place] Soledad SAMUEL Primary Care Physician IHDE_G Attending Clinician Unavailable Joesph PLATT Attending Clinician Unavailable Angeles Ibrahim MD Attending Clinician PATRICE Attending Clinician Unavailable ANGELES IBRAHIM Attending Clinician Unavailable Joesph Platt MD Attending Clinician Arnel CHAPMAN Attending Clinician Patrice CHAPMAN Attending Clinician Stephanie CHAPMAN Attending Clinician Shawnee Rg MD Attending Clinician SHAWNEE RG Attending Clinician Unavailable Ольга Marie MD Attending Clinician Que Ashton MD Attending Clinician Doctor Unassigned, Name Attending Clinician Unavailable IHDE_G Admitting Clinician Unavailable Payers Payer Name Policy Type Policy Number Effective Date Expiration Date S klever [facility] [id number] 2015 [facility] 00:00:00 (MEDICAID HMO) [place] [facility] [place] [id number] 2019 [facility] 00:00:00 PLAN [facility]-MEDICAID - [id number] 2016 2016 MEDICAID 00:00:00 00:00:00 Problems Condition [...] of Problem Active [facility] Pulmonary 8 da atresia Atresia 00:00: Medical 00 Group Irritable Irritable Disease Active [facility] bowel bowel 04-24 [place] syndrome syndrome 00:00: of with with 00 Medicin constipati constipati e on on Obesity Obesity Disease Active [facility] 10-12 [facility] 00:00: t & Plan: of 00 Formattin Medicin g of this e note might be different from the original. 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 Doing well post partumEnc ouraged to cont inhaler useInhale r tech demonstra tedProvid ed refills and PFM SARAH SARAH Disease Active 2012-03 [facility] (obstructi (obstructi 05-03 [facility] ve sleep ve sleep 00:00: t & Plan: of apnea) apnea) 00 Formattin Medicin g of this e note might be different from the original. Pt with history, obesity and anatomy of the upper airway suggestiv e of sleep disordere d breathing .discusee d with patient the pathophys iology of sleep apnea, diagnosis and treatment optionsWi ll go ahead and order a sleep study Atopic Atopic Disease Active Overview: Univer s dermatitis dermatitis 5-10 Formattin ity of and and 00:00: g of this [place] related related 00 note Medical condition condition might be Br anch different from the original. 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 Diagnosis Term Crusher Foreman Utility Congestion Congestion Problem Active [facility] Uncomplica Uncomplica Problem Active [facility] jose a asthma jose a asthma Donna kes - [facility] Depression Depression Problem Active [facility] with [facility] anxiety anxiety [facility] Constipati Constipati Problem Active [facility] on [facility] Heart Heart Problem Active [facility] disease disease [facility] Seasonal Seasonal Problem Active [facility] and and [facility] - perennial perennial Josse anju allergic allergic l rhinitis rhinitis Outpat i ent Clinics Dry cough Dry cough Problem Active [facility] Fatigue, Fatigue, Diagnosis Active [facility] unspecifie unspecifie Donna kes - d type d type [facility] SOB SOB Diagnosis Active [facility] (shortness (shortness Donna kes - of breath) of breath) [facility] COVID-19 COVID-[address] [facility] ruled out ruled out [facility] Allergies, Adverse Reactions, Alerts Allergy Allergy Status Severity Reaction(s) Onset Inactive Treating Comm ents Source Name Type Date Date Clinician Calvin Chapman Active Hives [place] Handihal ty to 09-30 [place] er adverse 00:00: of reaction 00 Medicin s to e drug NO KNOWN Drug Active [facility] ALLERGIE Class ity of [facility] [place] [facility] Spiriva Allergy Active [place] with to da Handihal substanc Medica l er e Group Social History Social Habit Start Date Stop Date Quantity Comments Source Exposure to Not sure [facility]-CoV-2 [facility] (event) Branch Tobacco use and 2020-05-19 2020-05-19 Never used [facility] llege of exposure 00:00:00 00:00:00 Medicine Alcohol intake 2020-05-19 2020-05-19 Current [facility] lege of 00:00:00 00:00:00 non-drinker of Medicine alcohol (finding) Sex [birth year] [facility] llege of 00:00:00 00:00:00 Medicine Smoking Status Start Date Stop Date Source Never smoker [facility] o f Medicine Medications Ordered Filled Start Stop Current Ordering Indication Dosage Frequency Signature Comments Components Source Medication Medication Date Date Medication? Clinician (SIG) Name Name fluocinolon Yes [id number] Apply to Univers e 8-02 area(s) 2 ity of (DERMA-SMOO 00:00: (two) [place] THE/FS BODY 00 times Medical OIL) 0.01 % daily as Bran ch body oil needed for Rash. fluticasone Yes [id number] Apply to Univers propionate 8-02 area(s) 2 ity of 0.005 % 00:00: (two) [place] ointment 00 times Medical daily. Branch fluocinolon Yes [id number] Apply to Univers e 8-02 area(s) 2 ity of (DERMA-SMOO 00:00: (two) [place] THE/FS BODY 00 times Medical OIL) 0.01 % daily as Bran ch body oil needed for Rash. fluticasone Yes [id number] Apply to Univers propionate 8-02 area(s) 2 ity of 0.005 % 00:00: (two) [place] ointment 00 times Medical daily. Branch fluocinolon 2021-0 Yes [id number] Apply to Univers e 8-02 area(s) 2 ity of (DERMA-SMOO 00:00: (two) [place] THE/FS BODY 00 times Medical OIL) 0.01 % daily as Bran ch body oil needed for Rash. fluticasone 2021-0 Yes [id number] Apply to Univers propionate 8-02 area(s) 2 ity of 0.005 % 00:00: (two) [place] ointment 00 times Medical daily. Branch fluocinolon 202-0 Yes [id number] Apply to Univers e 8-02 area(s) 2 ity of (DERMA-SMOO 00:00: (two) [place] THE/FS BODY 00 times Medical OIL) 0.01 % daily as Bran ch body oil needed for Rash. fluticasone 2021-0 Yes [id number] Apply to Univers propionate 8-02 area(s) 2 ity of 0.005 % 00:00: (two) [place] ointment 00 times Medical daily. Branch fluocinolon 202-0 Yes [id number] Apply to Univers e 8-02 area(s) 2 ity of (DERMA-SMOO 00:00: (two) [place] THE/FS BODY 00 times Medical OIL) 0.01 % daily as Bran ch body oil needed for Rash. fluticasone 2021-0 Yes [id number] Apply to Univers propionate 8-02 area(s) 2 ity of 0.005 % 00:00: (two) [place] ointment 00 times Medical daily. Branch crisaborole 2021-0 Yes [id number] Apply to Univers (EUCRISA) 2 5-11 area(s) 2 ity of % Oint 00:00: (two) [place] 00 times Medical daily as Branch needed (eczema). crisaborole 2021-0 Yes [id number] Apply to Univers (EUCRISA) 2 5-11 area(s) 2 ity of % Oint 00:00: (two) [place] 00 times Medical daily as Branch needed (eczema). crisaborole 2021-0 Yes [id number] Apply to Univers (EUCRISA) 2 5-11 area(s) 2 ity of % Oint 00:00: (two) [place] 00 times Medical daily as Branch needed (eczema). crisaborole 202-0 Yes [id number] Apply to Univers (EUCRISA) 2 5-11 area(s) 2 ity of % Oint 00:00: (two) [place] 00 times Medical daily as Branch needed (eczema). crisaborole 202-0 Yes [id number] Apply to Univers (EUCRISA) 2 5-11 area(s) 2 ity of % Oint 00:00: (two) [place] 00 times Medical daily as Branch needed (eczema). crisaborole 202-0 Yes [id number] Apply to Univers (EUCRISA) 2 5-11 area(s) 2 ity of % Oint 00:00: (two) [place] 00 times Medical daily as Branch needed (eczema). ketoconazol 2020-0 Yes Apply to U nivers e 2 % 4-26 area(s) 2 ity of shampoo 00:00: (two) [place] 00 times per Medical week for Branch Itching. fluocinolon 2020-0 Yes Apply to U nivers e 4-26 area(s) 2 ity of (DERMA-SMOO 00:00: (two) [place] THE/FS BODY 00 times Medical OIL) 0.01 % daily as Bran ch body oil needed for Rash. fluticasone 2020-0 Yes Apply to U nivers propionate 4-26 area(s) 2 ity of 0.005 % 00:00: (two) [place] ointment 00 times Medical daily. Branch dupilumab 2020-0 Yes [id number] 300mg inject 1 Univers (DUPIXENT 4-26 Syringe ity of SYRINGE) 00:00: [place] mg/2 mL 00 skin every Me dical Syrg 2 (two) Branch syringe weeks. ketoconazol 2020-0 Yes Apply to U nivers e 2 % 4-26 area(s) 2 ity of shampoo 00:00: (two) [place] 00 times per Medical week for Branch Itching. fluocinolon 2020-0 Yes Apply to U nivers e 4-26 area(s) 2 ity of (DERMA-SMOO 00:00: (two) [place] THE/FS BODY 00 times Medical OIL) 0.01 % daily as Bran ch body oil needed for Rash. fluticasone 2020-0 Yes Apply to U nivers propionate 4-26 area(s) 2 ity of 0.005 % 00:00: (two) [place] ointment 00 times Medical daily. Branch dupilumab 1-0 Yes [id number] 300mg inject 1 Univers (DUPIXENT 4-26 Syringe ity of SYRINGE) 00:00: [place] mg/2 mL 00 skin every Me dical Syrg 2 (two) Branch syringe weeks. ketoconazol 2020-0 Yes Apply to U nivers e 2 % 4-26 area(s) 2 ity of shampoo 00:00: (two) [place] 00 times per Medical week for Branch Itching. dupilumab 1-0 Yes [id number] 300mg inject 1 Univers (DUPIXENT 4-26 Syringe ity of SYRINGE) 00:00: [place] mg/2 mL 00 skin every Me dical Syrg 2 (two) Branch syringe weeks. ketoconazol 2020-0 Yes Apply to U nivers e 2 % 4-26 area(s) 2 ity of shampoo 00:00: (two) [place] 00 times per Medical week for Branch Itching. dupilumab 1-0 Yes [id number] 300mg inject 1 Univers (DUPIXENT 4-26 Syringe ity of SYRINGE) 00:00: [place] mg/2 mL 00 skin every Me dical Syrg 2 (two) Branch syringe weeks. ketoconazol 2020-0 Yes Apply to U nivers e 2 % 4-26 area(s) 2 ity of shampoo 00:00: (two) [place] 00 times per Medical week for Branch Itching. dupilumab 2021-0 Yes [id number] 300mg inject 1 Univers (DUPIXENT 4-26 Syringe ity of SYRINGE) 00:00: [place] mg/2 mL 00 skin every Me dical Syrg 2 (two) Branch syringe weeks. ketoconazol 2021-0 Yes Apply to U nivers e 2 % 4-26 area(s) 2 ity of shampoo 00:00: (two) [place] 00 times per Medical week for Branch Itching. dupilumab 2021-0 Yes [id number] 300mg inject 1 Univers (DUPIXENT 4-26 Syringe ity of SYRINGE) 00:00: [place] mg/2 mL 00 skin every Me dical Syrg 2 (two) Branch syringe weeks. ketoconazol Yes Apply to U nivers e 2 % 07-18 area(s) 2 ity of shampoo 00:00: (two) [place] 00 times per Medical week for Branch Itching. dupilumab Yes [id number] 300mg inject 1 Univers (DUPIXENT 4-26 Syringe ity of SYRINGE) 00:00: [place] mg/2 mL 00 skin every Me dical Syrg 2 (two) Branch syringe weeks. fluocinolon 2020- No Apply to Univers e 07-18 area(s) 2 ity of (DERMA-SMOO 00:00: 00:00 (two) [place] THE/FS BODY 00 :00 times Medical OIL) 0.01 % daily as Bran ch body oil needed for Rash. fluticasone 2020- No Apply to Univers propionate 07-18- area(s) 2 ity of 0.005 % 00:00: 00:00 (two) [place] ointment 00 :00 times Medical daily. Branch fluocinolon 2020- No Apply to Univers e 07-18 area(s) 2 ity of (DERMA-SMOO 00:00: 00:00 (two) [place] THE/FS BODY 00 :00 times Medical OIL) 0.01 % daily as Bran ch body oil needed for Rash. fluticasone 2020- No Apply to Univers propionate 07-18- area(s) 2 ity of 0.005 % 00:00: 00:00 (two) [place] ointment 00 :00 times Medical daily. Branch fluocinolon 2020- No Apply to Univers e 07-18 area(s) 2 ity of (DERMA-SMOO 00:00: 00:00 (two) [place] THE/FS BODY 00 :00 times Medical OIL) 0.01 % daily as Bran ch body oil needed for Rash. fluticasone 2020- No Apply to Univers propionate 07-18 area(s) 2 ity of 0.005 % 00:00: 00:00 (two) [place] ointment 00 :00 times Medical daily. Branch fluocinolon 2020- No Apply to Univers e 07-18- area(s) 2 ity of (DERMA-SMOO 00:00: 00:00 (two) [place] THE/FS BODY 00 :00 times Medical OIL) 0.01 % daily as Bran ch body oil needed for Rash. fluticasone 2020- No Apply to Univers propionate 07-18 area(s) 2 ity of 0.005 % 00:00: 00:00 (two) [place] ointment 00 :00 times Medical daily. Branch dupilumab 2020- No [id number] 600mg inject 2 Univers 300 mg/2 mL 07-18 05 Syringes ity of Syrg 00:00: 04:59 under the [place] syringe 00 :00 skin once Medical now for 1 Branch dose. fluocinolon Yes [id number] Apply to Univers e 2-25 area(s) 2 ity of (DERMA-SMOO 00:00: (two) [place] THE/FS BODY 00 times Medical OIL) 0.01 % daily as Bran ch body oil needed for Rash. fluticasone Yes [id number] Apply to Univers propionate 2-25 area(s) 2 ity of 0.005 % 00:00: (two) [place] ointment 00 times Medical daily. Branch salicylic 0 Yes [id number] Apply to Univers acid 6 % 2-25 plantar ity of gel 00:00: feet under [place] 00 occlusion Medical 2-3 times Branch per week fluocinolon 2020-0 Yes [id number] Apply to Univers e 2-25 area(s) 2 ity of (DERMA-SMOO 00:00: (two) [place] THE/FS BODY 00 times Medical OIL) 0.01 % daily as Bran ch body oil needed for Rash. fluticasone 2020-0 Yes [id number] Apply to Univers propionate 2-25 area(s) 2 ity of 0.005 % 00:00: (two) [place] ointment 00 times Medical daily. Branch salicylic 2021-0 Yes [id number] Apply to Univers acid 6 % 2-25 plantar ity of gel 00:00: feet under [place] 00 occlusion Medical 2-3 times Branch per week fluocinolon 2020-0 Yes [id number] Apply to Univers e 2-25 area(s) 2 ity of (DERMA-SMOO 00:00: (two) [place] THE/FS BODY 00 times Medical OIL) 0.01 % daily as Bran ch body oil needed for Rash. fluticasone 0 Yes [id number] Apply to Univers propionate 2-25 area(s) 2 ity of 0.005 % 00:00: (two) [place] ointment 00 times Medical daily. Branch salicylic 0 Yes [id number] Apply to Univers acid 6 % 2-25 plantar ity of gel 00:00: feet under [place] 00 occlusion Medical 2-3 times Branch per week fluocinolon 2020-0 Yes [id number] Apply to Univers e 2-25 area(s) 2 ity of (DERMA-SMOO 00:00: (two) [place] THE/FS BODY 00 times Medical OIL) 0.01 % daily as Bran ch body oil needed for Rash. fluticasone 0 Yes [id number] Apply to Univers propionate 2-25 area(s) 2 ity of 0.005 % 00:00: (two) [place] ointment 00 times Medical daily. Branch salicylic 0 Yes [id number] Apply to Univers acid 6 % 2-25 plantar ity of gel 00:00: feet under [place] 00 occlusion Medical 2-3 times Branch per week fluocinolon 2020-0 Yes [id number] Apply to Univers e 2-25 area(s) 2 ity of (DERMA-SMOO 00:00: (two) [place] THE/FS BODY 00 times Medical OIL) 0.01 % daily as Bran ch body oil needed for Rash. fluticasone 2020-0 Yes [id number] Apply to Univers propionate 2-25 area(s) 2 ity of 0.005 % 00:00: (two) [place] ointment 00 times Medical daily. Branch salicylic 0 Yes [id number] Apply to Univers acid 6 % 2-25 plantar ity of gel 00:00: feet under [place] 00 occlusion Medical 2-3 times Branch per week salicylic 2020-0 Yes [id number] Apply to Univers acid 6 % 2-25 plantar ity of gel 00:00: feet under [place] 00 occlusion Medical 2-3 times Branch per week salicylic Yes [id number] Apply to Univers acid 6 % 2-25 plantar ity of gel 00:00: feet under [place] 00 occlusion Medical 2-3 times Branch per week salicylic Yes [id number] Apply to Univers acid 6 % 2-25 plantar ity of gel 00:00: feet under [place] 00 occlusion Medical 2-3 times Branch per week salicylic Yes [id number] Apply to Univers acid 6 % 2-25 plantar ity of gel 00:00: feet under [place] 00 occlusion Medical 2-3 times Branch per week salicylic Yes [id number] Apply to Univers acid 6 % 2-25 plantar ity of gel 00:00: feet under [place] 00 occlusion Medical 2-3 times Branch per week salicylic Yes [id number] Apply to Univers acid 6 % 2-25 plantar ity of gel 00:00: feet under [place] 00 occlusion Medical 2-3 times Branch per week salicylic Yes [id number] Apply to Univers acid 6 % 2-25 plantar ity of gel 00:00: feet under [place] 00 occlusion Medical 2-3 times Branch per week Fluticasone Yes [id number] INHALE 2 [facility] -Salmeterol 2-25 PUFFS BY Isabell quiñonez (ADVAIR 00:00: MOUTH of HFA) 230-21 00 TWICE A Medic in MCG/ACT DAY e AERO fluocinolon 2020- No [id number] Apply to Univers e 2-25 04-26 area(s) 2 ity of (DERMA-SMOO 00:00: 00:00 (two) [place] THE/FS BODY 00 :00 times Medical OIL) 0.01 % daily as Bran ch body oil needed for Rash. fluticasone 2020- No [id number] Apply to Univers propionate 2-25 04-26 area(s) 2 ity of 0.005 % 00:00: 00:00 (two) [place] ointment 00 :00 times Medical daily. Branch Fluticasone 2019-03- No [id number] INHALE 2 [place] -Salmeterol 2-17 02-25 PUFFS BY Col lege (ADVAIR 00:00: 00:00 MOUTH of HFA) 230-21 00 :00 TWICE A Medic in MCG/ACT DAY MUST e AERO COMPLETE PULMONOLOG Y APPT FOR FUTURE REFILLS PROVENTIL 2019-03 Yes [id number] INHALE 2 [facility] HFA 108 (90 0-12 PUFFS BY Isabell [employer]) 00:00: MOUTH 4 of MCG/ACT 00 TIMES A Medicin inhaler DAY e lactulose 2020- No 20g Take 1 [facility] (CEPHULAC) 5-29 02-25 Packet by Col lege 20 g packet 00:00: 00:00 mouth 3 of 00 :00 times Medicin daily. e salicylic Yes [id number] Apply to Univers acid 6 % 1-15 plantar ity of gel 00:00: feet under [place] 00 occlusion Medical 2-3 times Branch per week fluticasone 2020-0 Yes [id number] Apply to Univers propionate 1-15 area(s) 2 ity of 0.005 % 00:00: (two) [place] ointment 00 times Medical daily. Branch fluocinolon 2019-0 Yes [id number] Apply to Univers e 1-15 area(s) 3 ity of (DERMA-SMOO 00:00: (three) [place] as THE/FS BODY 00 times Medical OIL) 0.01 % daily. Branch body oil salicylic 2019-0 Yes [id number] Apply to Univers acid 6 % 1-15 plantar ity of gel 00:00: feet under [place] 00 occlusion Medical 2-3 times Branch per week fluticasone 2020-0 Yes [id number] Apply to Univers propionate 1-15 area(s) 2 ity of 0.005 % 00:00: (two) [place] ointment 00 times Medical daily. Branch fluocinolon 2020-0 Yes [id number] Apply to Univers e 1-15 area(s) 3 ity of (DERMA-SMOO 00:00: (three) [place] as THE/FS BODY 00 times Medical OIL) 0.01 % daily. Branch body oil salicylic 2019-0 2020- No [id number] Apply to Univers acid 6 % 1-15 02-25 plantar ity of gel 00:00: 00:00 feet under [place] 00 :00 occlusion Medical 2-3 times Branch per week fluticasone 2020- No [id number] Apply to Univers propionate 04-08 area(s) 2 ity of 0.005 % 00:00: 00:00 (two) [place] ointment 00 :00 times Medical daily. Branch fluocinolon 2020- No [id number] Apply to Univers e 04-08 area(s) 3 ity of (DERMA-SMOO 00:00: 00:00 (three) [place] THE/FS BODY 00 :00 times Medical OIL) 0.01 % daily. Branch body oil salicylic 2020- No [id number] Apply to Univers acid 6 % 04-08 plantar ity of gel 00:00: 00:00 feet under [place] 00 :00 occlusion Medical 2-3 times Branch per week fluticasone 2020- No [id number] Apply to Univers propionate 04-08 area(s) 2 ity of 0.005 % 00:00: 00:00 (two) [place] ointment 00 :00 times Medical daily. Branch fluocinolon 2020- No [id number] Apply to Univers e 04-08 area(s) 3 ity of (DERMA-SMOO 00:00: 00:00 (three) [place] THE/FS BODY 00 :00 times Medical OIL) 0.01 % daily. Branch body oil Singulair Singulair Yes [place] [address] [facility] ketorolac Yes [id number] 10mg Take 1 Un sally 10 mg 2-08 tablet by ity of tablet 00:00: mouth [place] 00 every 6 Medical (six) Branch hours as needed for Pain (scale 7-10) (Do not take more than 3 days in a row). ondansetron Yes [id number] 4mg Take 1 Univers 4 mg 2-08 tablet by ity of disintegrat 00:00: mouth [place] ing tablet 00 every 4 Medica l (four) Branch hours as needed for Nausea and Vomiting (N/V). tamsulosin Yes [id number] .4mg Take 1 U nivers 0.4 mg 24 2-08 capsule by ity of hr capsule 00:00: mouth at [place] as 00 bedtime. Medical Branch acetaminoph 2019-0 Yes [id number] 500mg Take 1 Univers en 500 mg 2-08 tablet by ity o f tablet 00:00: mouth [place] 00 every 6 Medical (six) Branch hours as needed for Pain. gabapentin 2019-0 Yes [id number] 300mg Take 1 [facility] 300 mg 2-08 capsule by ity of capsule 00:00: mouth 3 [place] 00 (three) Medical times Branch daily. ketorolac 2019-0 Yes [id number] 10mg Take 1 Un sally 10 mg 2-08 tablet by ity of tablet 00:00: mouth [place] 00 every 6 Medical (six) Branch hours as needed for Pain (scale 7-10) (Do not take more than 3 days in a row). ondansetron 2019-0 Yes [id number] 4mg Take 1 Univers 4 mg 2-08 tablet by ity of disintegrat 00:00: mouth [place] ing tablet 00 every 4 Medica l (four) Branch hours as needed for Nausea and Vomiting (N/V). tamsulosin 2019-0 Yes [id number] .4mg Take 1 U nivers 0.4 mg 24 2-08 capsule by ity of hr capsule 00:00: mouth at [place] as 00 bedtime. Medical Branch acetaminoph 2019-0 Yes [id number] 500mg Take 1 Univers en 500 mg 2-08 tablet by ity o f tablet 00:00: mouth [place] 00 every 6 Medical (six) Branch hours as needed for Pain. gabapentin 2019-0 Yes [id number] 300mg Take 1 [facility] 300 mg 2-08 capsule by ity of capsule 00:00: mouth 3 [place] 00 (three) Medical times Branch daily. ketorolac 2019-0 Yes [id number] 10mg Take 1 Un sally 10 mg 2-08 tablet by ity of tablet 00:00: mouth [place] 00 every 6 Medical (six) Branch hours as needed for Pain (scale 7-10) (Do not take more than 3 days in a row). ondansetron 2019-0 Yes [id number] 4mg Take 1 Univers 4 mg 2-08 tablet by ity of disintegrat 00:00: mouth [place] ing tablet 00 every 4 Medica l (four) Branch hours as needed for Nausea and Vomiting (N/V). tamsulosin 2019-0 Yes [id number] .4mg Take 1 U nivers 0.4 mg 24 2-08 capsule by ity of hr capsule 00:00: mouth at [place] as 00 bedtime. Medical Branch acetaminoph 2019-0 Yes [id number] 500mg Take 1 Univers en 500 mg 2-08 tablet by ity o f tablet 00:00: mouth [place] 00 every 6 Medical (six) Branch hours as needed for Pain. gabapentin 2019-0 Yes [id number] 300mg Take 1 [facility] 300 mg 2-08 capsule by ity of capsule 00:00: mouth 3 [place] 00 (three) Medical times Branch daily. ketorolac 2019-0 Yes [id number] 10mg Take 1 Un sally 10 mg 2-08 tablet by ity of tablet 00:00: mouth [place] 00 every 6 Medical (six) Branch hours as needed for Pain (scale 7-10) (Do not take more than 3 days in a row). ondansetron 2019-0 Yes [id number] 4mg Take 1 Univers 4 mg 2-08 tablet by ity of disintegrat 00:00: mouth [place] ing tablet 00 every 4 Medica l (four) Branch hours as needed for Nausea and Vomiting (N/V). tamsulosin 2019-0 Yes [id number] .4mg Take 1 U nivers 0.4 mg 24 2-08 capsule by ity of hr capsule 00:00: mouth at [place] as 00 bedtime. Medical Branch acetaminoph 2019-0 Yes [id number] 500mg Take 1 Univers en 500 mg 2-08 tablet by ity o f tablet 00:00: mouth [place] 00 every 6 Medical (six) Branch hours as needed for Pain. gabapentin 2019-0 Yes [id number] 300mg Take 1 [facility] 300 mg 2-08 capsule by ity of capsule 00:00: mouth 3 [place] 00 (three) Medical times Branch daily. ketorolac 2019-0 Yes [id number] 10mg Take 1 Un sally 10 mg 2-08 tablet by ity of tablet 00:00: mouth [place] 00 every 6 Medical (six) Branch hours as needed for Pain (scale 7-10) (Do not take more than 3 days in a row). ondansetron 2019-0 Yes [id number] 4mg Take 1 Univers 4 mg 2-08 tablet by ity of disintegrat 00:00: mouth [place] ing tablet 00 every 4 Medica l (four) Branch hours as needed for Nausea and Vomiting (N/V). tamsulosin 2019-0 Yes [id number] .4mg Take 1 U nivers 0.4 mg 24 2-08 capsule by ity of hr capsule 00:00: mouth at [place] 00 bedtime. Medical Branch acetaminoph 2019-0 Yes [id number] 500mg Take 1 [facility] 500 mg 2-08 tablet by ity o f tablet 00:00: mouth [place] 00 every 6 Medical (six) Branch hours as needed for Pain. gabapentin 2019-0 Yes [id number] 300mg Take 1 [facility] 300 mg 2-08 capsule by ity of capsule 00:00: mouth 3 [place] 00 (three) Medical times Branch daily. ketorolac 2019-0 Yes [id number] 10mg Take 1 [facility] 10 mg 2-08 tablet by ity of tablet 00:00: mouth [place] 00 every 6 Medical (six) Branch hours as needed for Pain (scale 7-10) (Do not take more than 3 days in a row). ondansetron 2019-0 Yes [id number] 4mg Take 1 [facility] 4 mg 2-08 tablet by ity of disintegrat 00:00: mouth [place] ing tablet 00 every 4 Medica l (four) Branch hours as needed for Nausea and Vomiting (N/V). tamsulosin 2019-0 Yes [id number] .4mg Take 1 [facility] 0.4 mg 24 2-08 capsule by ity of hr capsule 00:00: mouth at [place] 00 bedtime. Medical Branch acetaminoph 2019-0 Yes [id number] 500mg Take 1 [facility] en 500 mg 2-08 tablet by ity o f tablet 00:00: mouth [place] 00 every 6 Medical (six) Branch hours as needed for Pain. gabapentin 2019-0 Yes [id number] 300mg Take 1 [facility] 300 mg 2-08 capsule by ity of capsule 00:00: mouth 3 [place] 00 (three) Medical times Branch daily. ketorolac 2019-0 Yes [id number] 10mg Take 1 [facility] 10 mg 2-08 tablet by ity of tablet 00:00: mouth [place] 00 every 6 Medical (six) Branch hours as needed for Pain (scale 7-10) (Do not take more than 3 days in a row). ondansetron 2019-0 Yes [id number] 4mg Take 1 [facility] 4 mg 2-08 tablet by ity of disintegrat 00:00: mouth [place] ing tablet 00 every 4 Medica l (four) Branch hours as needed for Nausea and Vomiting (N/V). tamsulosin 2019-0 Yes [id number] .4mg Take 1 [facility] 0.4 mg 24 2-08 capsule by ity of hr capsule 00:00: mouth at [place] 00 bedtime. [facility] Branch acetaminoph 2019-0 Yes [id number] 500mg Take 1 [facility] en 500 mg 2-08 tablet by ity o f tablet 00:00: mouth [place] 00 every 6 Medical (six) Branch hours as needed for Pain. gabapentin 2019-0 Yes [id number] 300mg Take 1 [facility] 300 mg 2-08 capsule by ity of capsule 00:00: mouth 3 [place] 00 (three) Medical times Branch daily. ketorolac 2019-0 Yes [id number] 10mg Take 1 [facility] 10 mg 2-08 tablet by ity of tablet 00:00: mouth [place] 00 every 6 Medical (six) Branch hours as needed for Pain (scale 7-10) (Do not take more than 3 days in a row). ondansetron 2019-0 Yes [id number] 4mg Take 1 [facility] 4 mg 2-08 tablet by ity of disintegrat 00:00: mouth [place] ing tablet 00 every 4 Medica l (four) Branch hours as needed for Nausea and Vomiting (N/V). tamsulosin 2019-0 Yes [id number] .4mg Take 1 [facility] 0.4 mg 24 2-08 capsule by ity of hr capsule 00:00: mouth at [place] 00 bedtime. [facility] Branch acetaminoph 2019-0 Yes [id number] 500mg Take 1 [facility] en 500 mg 2-08 tablet by ity o f tablet 00:00: mouth [place] 00 every 6 Medical (six) Branch hours as needed for Pain. gabapentin 2019-0 Yes [id number] 300mg Take 1 [facility] 300 mg 2-08 capsule by ity of capsule 00:00: mouth 3 [place] 00 (three) Medical times Branch daily. ketorolac 2019-0 Yes [id number] 10mg Take 1 [facility] 10 mg 2-08 tablet by ity of tablet 00:00: mouth [place] 00 every 6 Medical (six) Branch hours as needed for Pain (scale 7-10) (Do not take more than 3 days in a row). ondansetron 2019-0 Yes [id number] 4mg Take 1 [facility] 4 mg 2-08 tablet by ity of disintegrat 00:00: mouth [place] ing tablet 00 every 4 Medica l (four) Branch hours as needed for Nausea and Vomiting (N/V). tamsulosin 2019-0 Yes [id number] .4mg Take 1 [facility] 0.4 mg 24 2-08 capsule by ity of hr capsule 00:00: mouth at [place] 00 bedtime. Medical Branch acetaminoph 2019-0 Yes [id number] 500mg Take 1 [facility] en 500 mg 2-08 tablet by ity o f tablet 00:00: mouth [place] 00 every 6 Medical (six) Branch hours as needed for Pain. gabapentin 2019-0 Yes [id number] 300mg Take 1 [facility] 300 mg 2-08 capsule by ity of capsule 00:00: mouth 3 [place] 00 (three) Medical times Branch daily. ketorolac 2019-0 Yes [id number] 10mg Take 1 [facility] 10 mg 2-08 tablet by ity of tablet 00:00: mouth [place] 00 every 6 Medical (six) Branch hours as needed for Pain (scale 7-10) (Do not take more than 3 days in a row). ondansetron 2019-0 Yes [id number] 4mg Take 1 [facility] 4 mg 2-08 tablet by ity of disintegrat 00:00: mouth [place] ing tablet 00 every 4 Medica l (four) Branch hours as needed for Nausea and Vomiting (N/V). tamsulosin 2019-0 Yes [id number] .4mg Take 1 [facility] 0.4 mg 24 2-08 capsule by ity of hr capsule 00:00: mouth at [place] 00 bedtime. Medical Branch acetaminoph 2019-0 Yes [id number] 500mg Take 1 [facility] en 500 mg 2-08 tablet by ity o f tablet 00:00: mouth [place] 00 every 6 Medical (six) Branch hours as needed for Pain. gabapentin 2019-0 Yes [id number] 300mg Take 1 [facility] 300 mg 2-08 capsule by ity of capsule 00:00: mouth 3 [place] 00 (three) Medical times Branch daily. ketorolac 2019-0 Yes [id number] 10mg Take 1 [facility] 10 mg 2-08 tablet by ity of tablet 00:00: mouth [place] 00 every 6 Medical (six) Branch hours as needed for Pain (scale 7-10) (Do not take more than 3 days in a row). ondansetron 2019-0 Yes [id number] 4mg Take 1 [facility] 4 mg 2-08 tablet by ity of disintegrat 00:00: mouth [place] ing tablet 00 every 4 Medica l (four) Branch hours as needed for Nausea and Vomiting (N/V). tamsulosin 2019-0 Yes [id number] .4mg Take 1 [facility] 0.4 mg 24 2-08 capsule by ity of hr capsule 00:00: mouth at [place] 00 bedtime. Medical Branch acetaminoph 2019-0 Yes [id number] 500mg Take 1 [facility] en 500 mg 2-08 tablet by ity o f tablet 00:00: mouth [place] 00 every 6 Medical (six) Branch hours as needed for Pain. gabapentin 2019-0 Yes [id number] 300mg Take 1 [facility] 300 mg 2-08 capsule by ity of capsule 00:00: mouth 3 [place] 00 (three) Medical times Branch daily. ketorolac 2019-0 Yes [id number] 10mg Take 1 [facility] 10 mg 2-08 tablet by ity of tablet 00:00: mouth [place] 00 every 6 Medical (six) Branch hours as needed for Pain (scale 7-10) (Do not take more than 3 days in a row). ondansetron 2019-0 Yes [id number] 4mg Take 1 [facility] 4 mg 2-08 tablet by ity of disintegrat 00:00: mouth [place] ing tablet 00 every 4 Medica l (four) Branch hours as needed for Nausea and Vomiting (N/V). tamsulosin 2019-0 Yes [id number] .4mg Take 1 [facility] 0.4 mg 24 2-08 capsule by ity of hr capsule 00:00: mouth at [place] 00 bedtime. Medical Branch acetaminoph 2019-0 Yes [id number] 500mg Take 1 [facility] en 500 mg 2-08 tablet by ity o f tablet 00:00: mouth [place] 00 every 6 Medical (six) Branch hours as needed for Pain. gabapentin 2019-0 Yes [id number] 300mg Take 1 [facility] 300 mg 2-08 capsule by ity of capsule 00:00: mouth 3 [place] 00 (three) Medical times Branch daily. ketorolac 2019-0 Yes [id number] 10mg Take 1 [facility] 10 mg 2-08 tablet by ity of tablet 00:00: mouth [place] 00 every 6 Medical (six) Branch hours as needed for Pain (scale 7-10) (Do not take more than 3 days in a row). ondansetron 2019-0 Yes [id number] 4mg Take 1 [facility] 4 mg 2-08 tablet by ity of disintegrat 00:00: mouth [place] ing tablet 00 every 4 Medica l (four) Branch hours as needed for Nausea and Vomiting (N/V). tamsulosin 2019-0 Yes [id number] .4mg Take 1 [facility] 0.4 mg 24 2-08 capsule by ity of hr capsule 00:00: mouth at [place] 00 bedtime. Medical Branch acetaminoph 2019-0 Yes [id number] 500mg Take 1 [facility] en 500 mg 2-08 tablet by ity o f tablet 00:00: mouth [place] 00 every 6 Medical (six) Branch hours as needed for Pain. gabapentin 2019-0 Yes [id number] 300mg Take 1 [facility] 300 mg 2-08 capsule by ity of capsule 00:00: mouth 3 [place] 00 (three) Medical times Branch daily. ketorolac 2019-0 Yes [id number] 10mg Take 1 [facility] 10 mg 2-08 tablet by ity of tablet 00:00: mouth [place] 00 every 6 Medical (six) Branch hours as needed for Pain (scale 7-10) (Do not take more than 3 days in a row). ondansetron 2019-0 Yes [id number] 4mg Take 1 [facility] 4 mg 2-08 tablet by ity of disintegrat 00:00: mouth [place] ing tablet 00 every 4 Medica l (four) Branch hours as needed for Nausea and Vomiting (N/V). tamsulosin 2019-0 Yes [id number] .4mg Take 1 [facility] 0.4 mg 24 2-08 capsule by ity of hr capsule 00:00: mouth at [place] 00 bedtime. Medical Branch acetaminoph 2019-0 Yes [id number] 500mg Take 1 [facility] en 500 mg 2-08 tablet by ity o f tablet 00:00: mouth [place] 00 every 6 Medical (six) Branch hours as needed for Pain. gabapentin 2019-0 Yes [id number] 300mg Take 1 [facility] 300 mg 2-08 capsule by ity of capsule 00:00: mouth 3 [place] 00 (three) Medical times Branch daily. ketorolac 2019-0 Yes [id number] 10mg Take 1 [facility] 10 mg 2-08 tablet by ity of tablet 00:00: mouth [place] 00 every 6 Medical (six) Branch hours as needed for Pain (scale 7-10) (Do not take more than 3 days in a row). ondansetron 2019-0 Yes [id number] 4mg Take 1 [facility] 4 mg 2-08 tablet by ity of disintegrat 00:00: mouth [place] ing tablet 00 every 4 Medica l (four) Branch hours as needed for Nausea and Vomiting (N/V). tamsulosin 2019- Yes [id number] .4mg Take 1 U nivers 0.4 mg 24 2-08 capsule by ity of hr capsule 00:00: mouth at [place] 00 bedtime. Medical Branch acetaminoph 2019- Yes [id number] 500mg Take 1 [facility] en 500 mg 2-08 tablet by ity o f tablet 00:00: mouth [place] 00 every 6 Medical (six) Branch hours as needed for Pain. gabapentin 2019- Yes [id number] 300mg Take 1 [facility] 300 mg 2-08 capsule by ity of capsule 00:00: mouth 3 [place] 00 (three) Medical times Branch daily. triamcinolo 2017- Yes [id number] Apply to [facility] 3-02 area(s) 2 ity of acetonide 00:00: (two) [place] 0.1 % 00 times Medical ointment daily. Branch triamcinolo Yes [id number] Apply to [facility] ne 3-02 area(s) 2 ity of acetonide 00:00: (two) [place] 0.1 % 00 times Medical ointment daily. Branch triamcinolo Yes [id number] Apply to [facility] ne 3-02 area(s) 2 ity of acetonide 00:00: (two) [place] 0.1 % 00 times Medical ointment daily. Branch triamcinolo 2017-2020- No [id number] Apply to [facility] 3-02 -25 area(s) 2 ity of acetonide 00:00: 00:00 (two) [place] 0.1 % 00 :00 times Medical ointment daily. Branch triamcinolo 2020- No [id number] Apply to [facility] 3- 02-25 area(s) 2 ity of acetonide 00:00: 00:00 (two) [place] 0.1 % 00 :00 times Medical ointment daily. Branch triamcinolo Yes Apply to U nivers ne 6-16 area(s) 2 ity of acetonide 00:00: (two) [place] 0.1 % cream 00 times Medical daily. Branch triamcinolo Yes Apply to U nivers ne 6-16 area(s) 2 ity of acetonide 00:00: (two) [place] 0.1 % cream 00 times Medical daily. Branch triamcinolo Yes Apply to U nivers ne 6-16 area(s) 2 ity of acetonide 00:00: (two) [place] 0.1 % cream 00 times Medical daily. Branch triamcinolo 2020- No Apply to [facility] 6-16 -25 area(s) 2 ity of acetonide 00:00: 00:00 (two) [place] 0.1 % cream 00 :00 times Medical daily. Branch triamcinolo 2020- No Apply to [facility] 6-16 -25 area(s) 2 ity of acetonide 00:00: 00:00 (two) [place] 0.1 % cream 00 :00 times Medical daily. Branch fluocinolon Yes Apply to U nivers e 5-03 area(s) 3 ity of (DERMA-SMOO 00:00: (three) [place] as THE/FS BODY 00 times Medical OIL) 0.01 % daily. Branch body oil fluticasone Yes Apply to U nivers 0.005 % 5-03 area(s) 2 ity of ointment 00:00: (two) [place] 00 times Medical daily. Branch fluocinolon 2019- No Apply to [facility] e 5-03 01-15 area(s) 3 ity of (DERMA-SMOO 00:00: 00:00 (three) [place] THE/FS BODY 00 :00 times Medical OIL) 0.01 % daily. Branch body oil fluticasone 2019- No Apply to [facility] 0.005 % 07-25 area(s) 2 ity of ointment 00:00: 00:00 (two) [place] 00 :00 times Medical daily. Branch fluocinolon 2019- No Apply to [facility] e 07-25 area(s) 3 ity of (DERMA-SMOO 00:00: 00:00 (three) [place] THE/FS BODY 00 :00 times Medical OIL) 0.01 % daily. Branch body oil fluticasone 2019- No Apply to [facility] 0.005 % 07-25 area(s) 2 ity of ointment 00:00: 00:00 (two) [place] 00 :00 times Medical daily. Branch salicylic Yes Apply to Univ ers acid 6 % 3-14 plantar ity of gel 00:00: feet under [place] 00 occlusion Medical 2-3 times Branch per week salicylic 2019- No Apply to Uni vers acid 6 % 3-14 01-15 plantar ity of gel 00:00: 00:00 feet under [place] 00 :00 occlusion Medical 2-3 times Branch per week salicylic 2020- No Apply to Uni vers acid 6 % 3-14 01-15 plantar ity of gel 00:00: 00:00 feet under [place] 00 :00 occlusion Medical 2-3 times Branch per week eletriptan 2020- No [id number] 40mg Take 1 Tab [facility] (RELPAX) 40 8-19 02-25 by mouth [facility] MG tablet 00:00: 00:00 once as of 00 :00 needed for Medicin up to 1 e dose. may repeat in 2 hours if necessary Spacer/Aero Yes 1{devic 1 Device [facility] Chamber 7-13 e} daily. [place] Mouthpiece 00:00: of MISC 00 Medicin e ketoconazol Yes [id number] Apply to Univers e (NIZORAL) 2-10 area(s) ity o f 2 % shampoo 00:00: daily. [place] [facility] ketoconazol Yes [id number] Apply to Univers e (NIZORAL) 2-10 area(s) ity o f 2 % shampoo 00:00: daily. Medical Branch ketoconazol Yes [id number] Apply to Univers e (NIZORAL) 2-10 area(s) ity o f 2 % shampoo 00:00: daily. Medical Branch ketoconazol Yes [id number] Apply to Univers e (NIZORAL) 2-10 area(s) ity o f 2 % shampoo 00:00: daily. Medical Branch ketoconazol Yes [id number] Apply to Univers e (NIZORAL) 2-10 area(s) ity o f 2 % shampoo 00:00: daily. [facility] Medical Branch fluocinonid Yes Apply to U nivers e (LIDEX) 2-10 area(s) 2 ity o f 0.05 % 00:00: (two) [place] cream 00 times Medical daily. Branch ketoconazol Yes [id number] Apply to Univers e (NIZORAL) 2-10 area(s) ity o f 2 % shampoo 00:00: daily. [facility] Medical Branch fluocinonid Yes Apply to U nivers e (LIDEX) 2-10 area(s) 2 ity o f 0.05 % 00:00: (two) [place] cream 00 times Medical daily. Branch ketoconazol Yes [id number] Apply to Univers e (NIZORAL) 2-10 area(s) ity o f 2 % shampoo 00:00: daily. [facility] Medical Branch fluocinonid Yes Apply to U nivers e (LIDEX) 2-10 area(s) 2 ity o f 0.05 % 00:00: (two) [place] cream 00 times Medical daily. Branch ketoconazol Yes [id number] Apply to Univers e (NIZORAL) 2-10 area(s) ity o f 2 % shampoo 00:00: daily. Medical Branch ketoconazol 2021- No [id number] Apply to Univers e (NIZORAL) 2-10 04-26 area(s) ity of 2 % shampoo 00:00: 00:00 daily. Medical Branch fluocinonid 2020- No Apply to Univers e (LIDEX) 05-04 area(s) 2 ity of 0.05 % 00:00: 00:00 (two) [place] cream 00 :00 times Medical daily. Branch fluocinonid 2020- No Apply to Univers e (LIDEX) 05-04 area(s) 2 ity of 0.05 % 00:00: 00:00 (two) [place] cream 00 :00 times Medical daily. Branch fluocinonid 2013-03 Yes [id number] Apply to Univers e (LIDEX) 1-05 affected ity of 0.05 % gel 00:00: area(s) 2 [place] 00 (two) Medical times Branch daily. SCALP BALD SPOT fluocinonid 2013-03 Yes [id number] Apply to Univers e (LIDEX) -05 affected ity of 0.05 % gel 00:00: area(s) 2 [place] 00 (two) Medical times Branch daily. SCALP BALD SPOT fluocinonid 2013-03 Yes [id number] Apply to Univers e (LIDEX) 1-05 affected ity of 0.05 % gel 00:00: area(s) 2 [place] 00 (two) Medical times Branch daily. SCALP BALD SPOT fluocinonid 2013-03- No [id number] Apply to Univers e (LIDEX) 03-29 affected ity o f 0.05 % gel 00:00: 00:00 area(s) 2 [place] 00 :00 (two) Medical times Branch daily. SCALP BALD SPOT fluocinonid 2013-03- No [id number] Apply to Univers e (LIDEX) 03-29 affected ity o f 0.05 % gel 00:00: 00:00 area(s) 2 [place] 00 :00 (two) Medical times Branch daily. SCALP BALD SPOT Advair HFA Advair HFA No Advair HFA [place] 230 mcg-21 230 mcg-21 230 mcg-21 da mcg/actuati mcg/actuati mcg/actuat Medical on aerosol on aerosol ion [place] up inhaler inhaler aerosol inhaler albuterol albuterol No albuterol [place] sulfate HFA sulfate HFA sulfate da 90 90 HFA 90 Medical mcg/actuati mcg/actuati mcg/actuat Group on aerosol on aerosol ion inhaler inhaler aerosol inhaler bumetanide bumetanide No bumetanide [place] 0.5 mg 0.5 mg 0.5 mg da tablet tablet tablet Medical Group [facility] [facility] No [facility] [place] he/FS Body he/FS Body the/FS d a Oil 0.01 % Oil 0.01 % Body Oil Medical 0.01 % Group Eucrisa 2 % Eucrisa 2 % No Eucrisa 2 [place] topical topical % topical da ointment ointment ointment Med ical Group fluticasone fluticasone No fluticason [place] propionate propionate e da 0.005 % 0.005 % propionate Med ical topical topical 0.005 % Group ointment ointment topical ointment prednisone prednisone No prednisone [place] 20 mg 20 mg 20 mg da tablet tablet tablet Medical Group ProAir HFA ProAir HFA Yes [place] (Prior [facility] Auth: [facility] - Ref#:[id number] [facility] 40) l [facility]ics Advair HFA Advair HFA Yes [place] (Prior [facility] Auth: [facility] - Ref#:[id number] [facility] 39) l [facility] ent Clinics Vital Signs Vital Name Observation Time Observation Value Comments Source BP Diastolic 2021-01-17 00:00:00 68 mm[facility]Hg[facility] Height 2021-01-17 00:00:00 61 [facility] BMI (Body Mass 2021-01-17 00:00:00 41.9 kg/m2 [facility] Medical Index) Group BP Systolic 2021-01-17 00:00:00 126 mm[Hg] [facility] Body Weight 2021-01-17 00:00:00 222 [lb_av] [facility] BP Diastolic 2020-12-27 00:00:00 66 mm[Hg] [facility] Height 2020-12-27 00:00:00 61 [in_i] [facility] BMI (Body Mass 2020-12-27 00:00:00 41.9 kg/m2 [facility] BP Systolic 2020-12-27 00:00:00 130 mm[Hg] [facility] Body Weight 2020-12-27 00:00:00 221.7 [lb_av] [facility] BP Diastolic 2020-11-15 00:00:00 68 mm[Hg] [facility] Height 2020-11-15 00:00:00 61 [in_i] [facility] BMI (Body Mass 2020-11-15 00:00:00 42.3 kg/m2 [facility] BP Systolic 2020-11-15 00:00:00 128 mm[Hg] [facility] Body Weight 2020-11-15 00:00:00 224 [lb_av] [facility] Body weight 2020-05-19 20:04:00 90.719 [facility] BMI 2020-05-19 20:04:00 37.79 kg/m2 [facility] Systolic blood 2020-05-19 20:04:00 105 mm[Hg] [facility] pressure Medicine Diastolic blood 2020-05-19 20:04:00 70 mm[Hg] [facility] pressure Medicine Heart rate 2020-05-19 20:04:00 75 /min [facility] Body temperature 2020-05-19 20:04:00 36.56 [facility] Respiratory rate 2020-05-19 20:04:00 16 /min [facility] Body height 2020-05-19 20:04:00 154.9 cm [facility] Body weight 2020-05-19 20:04:00 90.719 kg [facility] BMI 2020-05-19 20:04:00 37.79 kg/m2 [facility] Systolic blood 2020-05-19 20:04:00 105 mm[Hg] [facility] pressure Medicine Diastolic blood 2020-05-19 20:04:00 70 mm[Hg] [facility] pressure Medicine Heart rate 2020-05-19 20:04:00 75 /min [facility] Body temperature 2020-05-19 20:04:00 36.56 [facility] Respiratory rate 2020-05-19 20:04:00 16 /min [facility] Body height 2020-05-19 20:04:00 154.9 cm [facility] Procedures Procedure Date / Time Performing Source Performed Clinician XR CHEST 2 VIEWS 2020-11-[address] [facility] - 12:20:00 Medical Center ASSIGNMENT OF BENEFITS 2019-04-08 Doctor [facility] of 15:59:44 Unassigned, No [place] Medical Name Branch Esophagogastroduodenoscopy (Surg) [facility] Laparoscopic Cholecystectomy [facility] Group Plan of Care Planned Activity Planned Date Details Comments Source Future Scheduled 2023-02-23 DTAP/TDAP/TD VACCINES [facility] Test 00:[facility]:00 (2 - Td) [code = Medical [facility] DTAP/TDAP/TD VACCINES (2 - Td)] Future Scheduled 2023-02-23 DTAP/TDAP/TD VACCINES [facility] Test 00:00:00 (2 - Td or Tdap) [code Medic al Center = DTAP/TDAP/TD VACCINES (2 - Td or Tdap)] Future Scheduled 2023-02-23 DTAP/TDAP/TD VACCINES [facility] Test 00:00:00 (2 - Td or Tdap) [code Medic al Center = DTAP/TDAP/TD VACCINES (2 - Td or Tdap)] Future Scheduled 2023-02-23 DTAP/TDAP/TD VACCINES [facility] Test 00:00:00 (2 - Td or Tdap) [code Medic al Center = DTAP/TDAP/TD VACCINES (2 - Td or Tdap)] Future Scheduled 2020-11-23 INFLUENZA VACCINE (#1) [facility] Test 00:[facility]:00 [code = INFLUENZA Medical Ce nter VACCINE (#1)] Future Scheduled 2020-11-23 INFLUENZA VACCINE (#1) [facility] Test 00:00:00 [code = INFLUENZA Medical Ce nter VACCINE (#1)] Future Scheduled 2020-11-23 INFLUENZA VACCINE (#1) [facility] Test 00:00:00 [code = INFLUENZA Medical Ce nter VACCINE (#1)] Future Scheduled 2020-11-23 INFLUENZA VACCINE (#1) [facility] Test 00:00:00 [code = INFLUENZA Medical Ce nter VACCINE (#1)] Future Scheduled 2020-03-[address] [facility] - Test 00:00:00 (12+) [code = Medical Center DEPRESSION SCREENING (12+)] Future Scheduled 2020-03-[address] [facility] - Test 00:00:00 (12+) [code = Medical Center DEPRESSION SCREENING (12+)] Future Scheduled 2020-03-[address] [facility] - Test 00:00:00 (12+) [code = Medical Center DEPRESSION SCREENING (12+)] Future Scheduled 2020-03-[address] [facility] - Test 00:00:00 (12+) [code = Medical Center DEPRESSION SCREENING (12+)] Future Scheduled 2016-06-[address] - Test 00:00:00 malignant neoplasm of Medica l Center cervix (procedure) [code = 728136856] Future Scheduled 2016-06-[address] [facility] - Test 00:00:00 malignant neoplasm of Medica l Center cervix (procedure) [code = 425766667] Future Scheduled 2016-06-[address] [facility] - Test 00:00:00 malignant neoplasm of Medica l Center cervix (procedure) [code = 464974925] Future Scheduled 2016-06-[address] [facility] [facility] - Test 00:00:00 malignant neoplasm of Medica l Center cervix (procedure) [code = 233431329] Future Scheduled 2013-06-11 HEPATITIS C SCREENING [facility] Test 00:00:00 [code = HEPATITIS C Medical Center SCREENING] Future Scheduled 2013-06-11 HEPATITIS C SCRE[facility]ING [facility] Test 00:00:00 [code = HEPATITIS C Medical Center SCREENING] Future Scheduled 2013-06-11 HEPATITIS C [facility]CRE[facility]ING [facility] Test 00:00:00 [code = HEPATITIS C Medical Center SCREENING] Future Scheduled 2013-06-11 HEPATITIS C [facility]CRE[facility]ING [facility] Test 00:00:00 [code = HEPATITIS C Medical Center SCREENING] Future Scheduled 2007 COVID-19 VACCINE (1) [facility] - Test 00:00:00 [code = COVID-[address] VACCINE (1)] Future Scheduled 2007 COVID-19 VACCINE (1) [facility] - Test 00:00:00 [code = COVID-[address] VACCINE (1)] Future Scheduled 2007 COVID-19 VACCINE (1) [facility] - Test 00:00:00 [code = COVID-[address] VACCINE (1)] Future Scheduled 2007 COVID-19 VACCINE (1) [facility] - Test 00:00:00 [code = COVID-[address] VACCINE (1)] Future Scheduled 2001-06-[address] [facility] - Test 00:00:00 0-64 YRS (1 of 2 - Medical C enter PPSV23) [code = PNEUMOCOCCAL VACCINE 0-64 YRS (1 of 2 - PPSV23)] Future Scheduled 2001-06-[address] [facility] - Test 00:00:00 0-64 YRS (1 of 1 - Medical C enter PPSV23) [code = PNEUMOCOCCAL VACCINE 0-64 YRS (1 of 1 - PPSV23)] Future Scheduled 2001-06-[address] [facility] - Test 00:00:00 0-64 YRS (1 of 2 - Medical C enter PPSV23) [code = PNEUMOCOCCAL VACCINE 0-64 YRS (1 of 2 - PPSV23)] Future Scheduled 2001-06-[address] [facility] - Test 00:00:00 0-64 YRS (1 of 2 - Medical C enter PPSV23) [code = PNEUMOCOCCAL VACCINE 0-64 YRS (1 of 2 - PPSV23)] Future Scheduled COVID-19 Vaccine [facility] [facility] [code = Medicine COVID-19 Vaccine Evaluation] Future Scheduled HPV VACCINE (1 - [facility] Test 2-dose series) [code = Medic ine HPV VACCINE (1 - 2-dose series)] Future Scheduled BMI FOLLOW UP PLAN [facility] Test [code = BMI FOLLOW UP Medici ne PLAN] Future Scheduled HEPATITIS C SCREENING [facility] Test [code = HEPATITIS C Medicine SCREENING] Future Scheduled HIV SCREENING [code = [facility] Test HIV SCREENING] Medicine Future Scheduled CERVICAL CANCER [facility] C ollege of Test SCREENING 3 YEAR Medicine FOLLOW UP [code = CERVICAL CANCER SCREENING 3 YEAR FOLLOW UP] Future Scheduled FLU VACCINE > 6 MONTHS B [facility] Test [code = FLU VACCINE > Medici ne 6 MONTHS] Future Scheduled TETANUS SHOT (ADULT) [facility] Test [code = TETANUS SHOT Medicin e (ADULT)] Encounters Start End Encounter Admission Attending Care Care Encounter Source Date/Time Date/Time Type Type Clinicians Facility Department ID 2021-02-12 Outpatient IHDE_G [facility] [id number] [place] 17:14:01 [facility]4 [facility] 2021-02-12 Outpatient IHDE_G MMG MMG [id number] [place] 14:04:52 1029 [facility] Group 2021-02-12 Outpatient IHDE_G MMG MMG [id number] [place] 12:44:34 1026 Medical Group 2021-02-12 Outpatient IHDE_G MMG MMG [id number] [place] 08:50:47 1018 Medical Group 2021-02-12 Outpatient IHDE_G MMG MMG [id number] [place] 02:17:05 1005 Medical Group 2021-02-11 Outpatient IHDE_G MMG MMG [id number] [place] 11:37:54 0827 [facility] 2021-02-07 Outpatient IHDE_G MMG MMG [id number] [place] 23:32:26 1116 Medical Group 2021-02-07 Outpatient IHDE_G MMG MMG [id number] [place] 22:58:12 1115 [facility] Group 2021-02-07 Outpatient IHDE_G MMG MMG [id number] [place] 14:43:55 0825 [facility] 2021-02-07 Outpatient IHDE_G MMG MMG [id number] [place] 14:19:53 0824 [facility] 2021-02-07 Outpatient IHDE_G MMG MMG [id number] [place] 11:59:08 0819 Medical Group 2021-01-17 2021-01-17 Joseph [facility] [place] - [id number] Denilson at[place]or 00:00:00 00:00:00 Ajay Olguin MD: [facility] [address], [place] [address] , Ph. [phone] 2020-12-27 2020-12-27 [facility] [place] - [id number] M atagor 00:00:00 00:00:00 [facility]in [facility]: [facility] [address], [place] [address] , Ph. [phone] 2020-12-09 2020-12-09 [facility] [id number] Univers 10:15:00 10:15:00 DAIANA [id number] ity of [facility] 2020-11-15 2020-11-15 [facility] [place] - [id number] M at[place]or 00:00:00 00:00:00 Ajay Olguin MD: [facility] [address], [place] [address] , Ph. [phone] 2020-11-09 2020-11-[address] [facility] [id number] 12:00:00 23:59:00 [facility] 2020-11-09 2020-11-09 Outpatient BRANDO IBRAHIM [facility] BC [id number] [facility] 12:36:38 14:54:20 Colleg e of Medicin e 2020-11-09 2020-11-09 Outpatient BRANDO IBRAHIM [facility] SLE [id number] SLE 00:00:00 00:00:00 2020-11-08 2020-11-[address] [facility] [id number] [facility] [address] 00:00:00 00:00:00 Orders [facility] 2020-11-01 2020-11-01 [facility] [id number] Univers 00:00:00 00:00:00 [id number] [facility] [place] [id number] [facility] AND [address] DI[facility]ETES [facility]INIC 2020-10-24 2020-10-24 Office Lc [facility] [id number] Univers 10:18:55 10:48:54 Visit Daiana MARTINEZ [id number] it[place] [id number] [address] DIABETES CLINIC 2020-10-24 2020-10-24 Outpatient Joesph PLATT [facility] [id number] Univers 10:30:00 10:30:00 DAIANA [id number] [facility] 2020-10-24 2020-10-24 Outpatient Joesph PLATT [facility] [id number] Univers 10:30:00 10:30:00 DAIANA [facility] 2020-08-26 2020-08-26 Outpatient Joesph PLATT [facility] [id number] Univers 14:00:00 14:00:00 DAIANA [id number] [facility] 2020-08-02 2020-08-02 [facility] [id number] [facility] 00:00:00 00:00:00 [facility] [id number] i ty of CLINICS 4.2.7.2.686 [facility] [id number] [address] 2020-08-02 2020-08-02 Telephone Lavernga [facility] [id number] 00:00:00 00:00:00 [facility] [id number] CLINICS [id number] [id number] 2020-07-18 2020-07-18 Office Lc [facility] [id number] Univers 10:54:04 11:57:47 Visit Daiana MARTINEZ [id number] [place] [id number] [facility] AND [address] [facility]ETES [facility]INIC 2020-07-18 2020-07-18 Office Lc [facility] [id number] 10:54:04 11:57:47 Visit Daiana ROMEPEC [id number] [place] 4.2.7.2.686 [place] [id number] [place] [address] [facility] 2020-07-18 2020-07-18 Outpatient R LC [facility] [id number] Univers 11:00:00 11:00:00 DAIANA [id number] [facility] 2020-07-18 2020-07-18 Outpatient R LC [facility] [id number] Univers 11:00:00 11:00:00 DAIANA [facility] 2020-07-13 2020-07-13 [facility] [id number] [facility] 00:00:00 00:00:00 Daiana MARTINEZ [id number] [facility] 4.2.7.2.686 [facility] [id number] [facility] AND [address] [facility]ETES [facility]IC 2020-07-13 2020-07-13 [facility] [id number] 00:00:00 00:00:00 Daiana ROMEPEC 350.1.13.10 [place] 4.2.7.2.686 [place] [id number] [place] [address] [facility] 2020-05-19 2020-05-19 Office Brando Ibrahim [facility] 1.2.840.114 [id number] 13:48:40 16:45:35 Visit AMBULATOR 350.1.13.21 Y 0.2.7.2.686 [id number] [facility] 2020-05-19 2020-05-19 Office Brando Ibrahim [facility] 1.2.840.114 [id number] [facility] 13:48:40 16:45:35 Visit AMBULATOR 350.1.13.21 College Y 0.2.7.2.686 [id number] [facility] 380 e 2020-05-19 2020-05-19 Office Mile Brown [facility] 1.2.840.11 [id number] [facility] 09:41:56 10:07:30 Visit Rigoberto Rg MULTISPEC 350.1.13.10 ity of [place] 4.2.7.2.686 [facility] [id number] [address] DIABETES [facility]INIC 2020-05-19 2020-05-19 Outpatient R RIGOBERTO RG [facility] [id number] Univers 09:45:00 09:45:00 ity [facility] 2020-05-19 2020-05-19 Outpatient R [facility] [id number] Univers 09:30:00 09:30:00 [id number] ity [facility] 2019-10-02 2019-10-02 [facility] [id number] 14:00:00 14:00:00 [facility] Medicine Medicine Outpati ent Clinics 2019-10-01 2019-10-01 [facility] [id number] 09:40:00 09:40:00 t [facility] Medicine Medicine Outpati ent Clinics 2019-09-28 2019-09-28 [facility] [id number] 14:29:00 14:29:00 t [facility] Medicine Medicine Outpati ent Clinics 2019-06-22 2019-06-22 [facility] [id number] 11:00:00 11:00:00 [facility] Medicine Medicine Outpati ent Clinics 2019-06-19 2019-06-19 [facility] [id number] 14:01:00 14:01:00 [facility] Medicine Medicine Outpati ent Clinics 2019-04-08 2019-04-08 Office Viral Marie [facility] 1.2 .840.114 [id number] [facility] 10:00:07 10:10:07 Visit Ajay Ashton MULTISPEC 350.1.1 3.10 [place]y [place] 4.2.7.2.686 [facility] [id number] [address] DIABETES CLINIC 2019-04-08 2019-04-08 Vick GONZALES 1.2.840.114 [id number] Univers 00:00:00 00:00:00 Only Unassigned, AZUCENA 350.1.13.10 ity of [place] [facility] 4.2.7.2.686 Justino as [id number] [place] [address] [place] 2019-04-07 2019-04-07 Outpatient Oneyda Hadley [id number] 11:00:00 11:00:00 [facility] s [facility] Outpati ent Clinics Results Test Description Test Time Test Comments Results Result Comments Source Surgical pathology study 2021-01-06 10:00:00 Test Item Value Reference Range Interpretation Comme nts Surgical pathology study (test code = 54341-2) see emr pathology re port. [facility] W Auto Differential panel - [id number] 02:29:00 Test Item Value Reference Range Interpretation Comments white blood count (test code = 10.1 K/uL 4.0-11.5 white blood count) red blood count (test code = red 4.86 M/uL 3.80-5.20 blood count) hemoglobin (test code = 14.1 g/dL 10.5-15.7 hemoglobin) hematocrit (test code = 41.9 % 34.0-50.0 hematocrit) MCV [Entitic volume] (test code = 86.2 fL 86-100 90228-4) mean corpuscular hemoglobin (test 29.0 pg 26.2-33.4 code = mean corpuscular hemoglobin) mean corpuscular HGB conc (test 33.7 g/dL 30-34 code = mean corpuscular HGB conc) red cell distribution width (test 12.6 % 12.0-15.5 code = red cell distribution width) platelet count (test code = 374 K/uL 165-450 platelet count) mean platelet volume (test code = 9.2 fL 9.4-12.6 L mean platelet volume) Segmented neutrophils/100 61.7 % 44.4-80.1 leukocytes in Blood (test code = 12616-7) Immature granulocytes [#/volume] 0.0 K/uL 0.0-0.03 in Blood (test code = 37575-9) lymphocyte% (test code = 27.4 % 10.0-50.0 lymphocyte%) mono % (test code = mono %) 7.4 % 3.6-12.0 eos % (test code = eos %) 2.7 % 0.0-5.4 Basophils/100 leukocytes in 0.6 % 0.1-1.2 Unspecified specimen (test code = 07041-2) Band form neutrophils [#/volume] 6.26 K/uL 1.56-6.13 H in Blood (test code = 63701-5) Lymphocytes [#/volume] in 2.8 K/uL 1.18-3.74 Unspecified specimen by Automated count (test code = 45791-4) mono # (test code = mono #) 0.75 K/uL 0.24-0.86 eos # (test code = eos #) 0.27 K/uL 0.04-0.36 basophil # (test code = basophil 0.06 K/uL 0.01-0.08 #) NRBC% (test code = NRBC%) 0 /100 WBC 0-0.2 NRBC# (test code = NRBC#) 0 K/uL [facility] - Serum or Plasma 2021-01-03 02:29:00 Test Item Value Reference Range Interpretation Comments glucose (test code = glucose) 95 mg/dL 74-106 Urea nitrogen [Mass/volume] in 18 mg/dL 6-20 Serum or Plasma (test code = 3094-0) osmolality calculated,serum (test 274 mOsm/kg 280-300 L code = osmolality calculated,serum) creatinine (test code = 0.7 mg/dL 0.50-0.90 creatinine) glomerular filtration rate (test >60.00 code = glomerular filtration rate) Urea nitrogen/Creatinine [Mass 25.7 12-20 H Ratio] in Serum or Plasma (test code = 3097-3) sodium level (test code = sodium 136 mmol/L 135-145 level) Potassium [Moles/volume] in Body 4.1 mmol/L 3.5-5.2 fluid (test code = 2821-7) chloride level (test code = 98 mmol/L 98-108 chloride level) CO2 (test code = CO2) 27 mmol/L 21-32 anion gap (test code = anion gap) 15.1 mEq/L 12-20 calcium level (test code = 9.4 mg/dL 8.6-10.0 calcium level) total protein (test code = total 8.0 g/dL 6.6-8.7 protein) albumin (test code = albumin) 4.6 g/dL 3.5-5.2 globulin (test code = globulin) 3.4 gm/dL A/G ratio (test code = A/G ratio) 1.4 >1.0 bilirubin,total (test code = <0.3 0.0-1.2 bilirubin,total) AST/SGOT (test code = AST/SGOT) 16 U/L 15-32 Alanine aminotransferase 21 U/L 0-33 [Enzymatic activity/volume] in Serum or Plasma (test code = 1742-6) Alkaline phosphatase [Enzymatic 80 U/L 35-105 activity/volume] in Serum or Plasma (test code = 6768-6) [facility] RNA [Presence] in Respiratory specimen by MARI with probe [id number] 02:15:2258299-0CqmueuxwsWinston Medical CenterDifferential panel, method unspecified - [id number] 00:00:00 NeutrophilsBandLymphocyteAtypical LymphMonocyteEosinophilBasophilMetamyelocyteMyelocytePromyelocyteBlastsNucleated Red Blood CellAbs Neutrophil Count (Man)Abs Lymph Count (Man)Abs Monocyte Count (Man)Abs Eosinophil Count (Man)Abs Basophil Count (Man)Platelet EstimatePlatelet MorphologyPolychromasiaMacrocytosisHypersegmented Polys [facility] CenterChoriogonadotropin ( test) [Presence] in Serum or [id number] 00:00:00 Test Item Value Reference Range Interpretation Comments Choriogonadotropin.beta subunit negative neg ( test) [Presence] in Serum or Plasma (test code = 2110-5) [facility], [facility], 2 [id number] 13:30:00Reason for Exam:- >Severe persistent asthma without complication [facility] 1995 Sex: FFINAL REPORT Exam: RAD, CHEST, 2 VIEWSDate: 11/09/2020 1:29 PM Indicat ion: Severe persistent asthma Comparison: None FINDINGS: Lines/Tubes:None Lungs:The lungs are mildlyhyperinflated. No focal consolidation or pulmonary edema. Pleura:No pleural effusion. No pneumothorax. Heart/Mediastinum:The cardiomediastinal silhouette is normal in size and contour. Atrophic occlusion device projects over the left upper mediastinum. Mediastinal clips and sternotomy wires in place. Bones/Soft Tissues: No acute osseous injury. 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 Abdomen: No free air below the diaphragm. IMPRESSION:Mildly hyperinflated lungs. No focal pneumonia or pulm onary edema. Signed: Yvette Nguyeneport Verified Date/Time: 11/09/2020 13:30:42 Chest 2 [id number] 13:30:00Interface, External Ris In - 11/09/2020 1:32 PM CDTFINAL REPORT Exam: RAD, CHEST, 2 VIEWSDate: 11/09/2020 1:29 PM Indication: Severe persistent asthma Comparison: None FINDINGS: Lines/Tubes:None Lungs:The lungs are mildly hyperinflated. No focal consolidation or pulmonary edema.Pleura:No pleural effusion. No pneumothorax. Heart/Mediastinum:The cardiomediastinal silhouette is normal in size and contour. Atrophic occlusion device projects over the left upper mediastinum. Mediastinal clips and sternotomy wires in place. Bones/Soft Tissues: No acute osseous injury. Chronic rightand left posterior rib deformities. Abdomen: No free air below the diaphragm. IMPRESSION:Mildly hyperinflated lungs. No focal pneumonia or pulmonary edema. Signed: Yvette Nguyeneport Verified Date/Time: 11/09/2020 13:30:42 [facility]
--- NOTE | 2021-02-13 19:24 | RAD REPORT ---
EXAM DESCRIPTION: Jairo Mann And Blanquita (2 Views)02/13/2021 7:10 pm CLINICAL HISTORY: Shortness of breath COMPARISON: November 2020 FINDINGS: The lungs appear clear of acute infiltrate. The heart is mildly to moderately enlarged. P ostsurgical changes involve the chest IMPRESSION: No acute abnormalities displayed
--- NOTE | 2021-02-13 20:08 | ER ---
Nurse's Notes [facility] Name: Deric Barry Age: 25 yrs Sex: Female : 1995 Arrival Date: 02/13/2021 Time: 17:16 Bed 10 Private MD: Ciera Fried Diagnosis: Dyspnea Presentation: 02/13 17:28 Chief complaint: Patient states: "I took the 1st covid shot about a week ago and I aa5 think it flared up my asthma". Pt reports SOB. No respiratory distress noted during triage. Coronavirus screen: shortness of breath. Ebola Screen: No symptoms or risks identified at this time. Initial Sepsis Screen: Does the patient meet any 2 criteria? No. Patient's initial sepsis screen is negative. Does the patient have a suspected source of infection? No. Patient's initial sepsis screen is negative. Risk Assessment: Do you want to hurt yourself or someone else? Patient reports no desire to harm self or others. Onset of symptoms was January 2021. 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 - Social history:: Smoking status: Patient denies any tobacco usage or history of. Screenin:13 Abuse screen: Denies threats or abuse. Denies injuries from another. Nutritional ld1 screening: No deficits noted. Tuberculosis screening: No symptoms or risk factors identified. Fall Risk None identified. Assessment: 18:13 General: Appears in no apparent distress. comfortable, Behavior is calm, cooperative, ld1 appropriate for age. Pain: Denies pain. Neuro: Level of Consciousness is awake, alert, obeys commands, Oriented to person, place, time, situation, Appropriate for age. Cardiovascular: Capillary refill < 3 seconds Patient's skin is warm and dry. Rhythm is regular. Respiratory: Airway is patent Respiratory effort is even, unlabored, Breath sounds are clear bilaterally. GI: Abdomen is round non-distended. : No signs and/or symptoms were reported regarding the genitourinary system. EENT: No signs and/or symptoms were reported regarding the EENT system. Derm: No signs and/or symptoms reported regarding the dermatologic system. Musculoskeletal: No signs and/or symptoms reported regarding the musculoskeletal system. Vital Signs: 17:28 BP 97 / 73; Pulse 73; Resp 18 S; Temp 97.1(TE); Pulse Ox 100% on R/A; Weight 98.43 kg aa5 (R); Height 5 ft. 1 in. (154.94 cm) (R); 18:13 BP 106 / 77; Pulse 85; Resp 18; Pulse Ox 98% on R/A; ld1 17:28 Body Mass Index 41.00 (98.43 kg, 154.94 cm) 5 ED Course: 17:16 Patient arrived in ED. as 17:16 Ciera Fried is Private Physician. as 17:19 Candace Allred FNP-C is [facility]. kb 17:19 Georgi Moses MD is Attending Physician. kb 17:25 Arm band placed on. aa5 17:30 Triage completed. aa5 18:13 Nadine Dai, WILL is Primary Nurse. ld1 18:13 Patient has correct armband on for positive identification. Bed in low position. Call ld1 light in reach. Side rails up X2. Pulse ox on. NIBP on. Door closed. Noise minimized. 18:13 No provider procedures requiring assistance completed. ld1 19:10 Chest Pa And Lat (2 Views) XRAY In Process Unspecified. EDMS Administered Medications: No medications were administered Outcome: 20:08 Discharge ordered by . kb 20:49 Patient left the ED. [facility] Signatures: Dispatcher [employer] EDMS Candace Allred FNP-C FNP-Carol Nelson Audri, RN RN [facility] Negrito Erazo [facility] Nadine Dai, RN RN ld1 Corrections: (The following items were deleted from the chart) 17:33 17:28 Pulse 73bpm; Resp 18bpm; Spontaneous; Pulse Ox 100% RA; Temp 97.1F Temporal; aa5 98.43 kg Reported; Height 5 ft. 1 in. Reported; BMI: 41.0; aa5
--- NOTE | 2021-02-13 20:08 | EDPHYS ---
Physician Documentation [facility] Name: Deric Barry Age: 25 yrs Sex: Female : 1995 Arrival Date: 02/13/2021 Time: 17:16 Bed 10 Private MD: Ciera Fried ED Physician Georgi Moses HPI: 02/13 18:50 This 25 yrs old Female presents to ER via Ambulatory with complaints of Breathing kb Difficulty, Asthma Exacerbation. 18:50 The patient has shortness of breath at rest. Onset: The symptoms/episode began/occurred kb 5 day(s) ago. Duration: The symptoms are continuous. The patient's shortness of breath is aggravated by nothing, is alleviated by nothing. Associated signs and symptoms: The patient has no apparent associated signs or symptoms. Severity of symptoms: At their worst the symptoms were mild moderate in the emergency department the symptoms are unchanged. The patient has not experienced similar symptoms in the past. The patient has not recently seen a physician. Pt reports shortness of breath that started 5 days ago, 2 days after receiving first covid shot. . 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 - Social history:: Smoking status: Patient denies any tobacco usage or history of. ROS: 18:49 Constitutional: Negative for fever, chills, and weight loss. kb 18:49 Respiratory: Positive for shortness of breath. 18:49 All other systems are negative. Exam: 18:49 Constitutional: This is a well developed, well nourished patient who is awake, alert, kb and in no acute distress. Head/Face: Normocephalic, atraumatic. ENT: Moist Mucous membranes Cardiovascular: Regular rate and rhythm with a normal S1 and S2. No gallops, murmurs, or rubs. No pulse deficits. Respiratory: Respirations even and unlabored. No increased work of breathing, no retractions or nasal flaring. Skin: Warm, dry with normal turgor. Normal color. MS/ Extremity: Pulses equal, no cyanosis. Neurovascular intact. Full, normal range of motion. Neuro: Awake and alert, GCS 15, oriented to person, place, time, and situation. Moves all extremities. Normal gait. Psych: Awake, alert, with orientation to person, place and time. Behavior, mood, and affect are within normal limits. Vital Signs: 17:28 BP 97 / 73; Pulse 73; Resp 18 S; Temp 97.1(TE); Pulse Ox 100% on R/A; Weight 98.43 kg aa5 (R); Height 5 ft. 1 in. (154.94 cm) (R); 18:13 BP 106 / 77; Pulse 85; Resp 18; Pulse Ox 98% on R/A; ld1 17:28 Body Mass Index 41.00 (98.43 kg, 154.94 cm) aa5 MDM: 18:09 Patient medically screened. kb 18:33 Data reviewed: vital signs, nurses notes. Data interpreted: Pulse oximetry: on room air kb is 98 %. Interpretation: normal. 20:08 Counseling: I had a detailed discussion with the patient and/or guardian regarding: the kb historical points, exam findings, and any diagnostic results supporting the discharge/admit diagnosis, radiology results, the need for outpatient follow up, a family practitioner, to return to the emergency department if symptoms worsen or persist or if there are any questions or concerns that arise at home. 02/13 18:16 Order name: Chest Pa And Lat (2 Views) XRAY; Complete Time: 20:03 kb Administered Medications: No medications were administered Disposition: 02/14 12:38 Co-signature as Attending Physician, Georgi Moses MD I agree with the assessment and kdr plan of care. Disposition Summary: 02/13/21 20:08 Discharge Ordered Location: Home Condition: Stable kb Diagnosis - Dyspnea kb Followup: kb - With: Emergency Department - When: As needed - Reason: Worsening of condition Followup: kb - With: Private Physician - When: 2 - 3 days - Reason: Recheck today's complaints, Continuance of care, Re-evaluation by your physician Discharge Instructions: - Discharge Summary Sheet kb - Shortness of Breath, Adult, [id number] kb Forms: - Medication Reconciliation Form kb - Thank You Letter kb - Antibiotic Education kb - Prescription Opioid Use kb Signatures: Dispatcher [employer] EDCandace Novak, ION EXCHANGE OPERATOR-C LIZZIE-Georgi Zelaya MD MD kdr Calderon, Audri, RN RN aa5
[2021-02-13 20:54] VITALS: TEMP 97.1
[2021-02-13 20:55] VITALS: BP 106/77; O2SAT 98
== END 2021-02-13 20:49 | disposition home or self-care (01) ==
LOC: ER 17:15
DX: R06.00 Dyspnea, unspecified (principal); J45.909 Unspecified asthma, uncomplicated; Z88.8 Allergy status to other drugs, medicaments and biological substances; Z95.4 Presence of other heart-valve replacement
CPT/HCPCS: 71046; 99283

== ENCOUNTER 2021-05-08 17:23 | Emergency (ER) | payer OTHER ==
--- OUTSIDE RECORDS SUMMARY | 2021-05-08 17:27 | XMS REPORT | Continuity of Care Document ---
:1995 Author Organization [facility] t Address [address] [place] [address] Care Team Providers Name Role Phone Soledad Guillaume Primary Care Physician Corky Attending Clinician Unavailable Christine ANGELA Attending Clinician Que Garcia MD Attending Clinician IHDE_G Attending Clinician Unavailable Joesph PLATT Attending Clinician Unavailable Angeles Ibrahim MD Attending Clinician PATRICE Attending Clinician Unavailable ANGELES IBRAHIM Attending Clinician Unavailable Joesph Platt MD Attending Clinician Anrel CHAPMAN Attending Clinician Patrice CHAPMAN Attending Clinician Stephanie CHAPMAN Attending Clinician Shawnee Rg MD Attending Clinician SHAWNEE RG Attending Clinician Unavailable Ольга Marie MD Attending Clinician Daisha CHAPMAN, Que Attending Clinician Doctor Unassigned, Name Attending Clinician Unavailable IHDE_G Admitting Clinician Unavailable Payers Payer Name Policy Type Policy Number Effective Date Expiration Date S klever [facility] [id number] 2015 [facility] 00:00:00 (MEDICAID HMO) [facility] - [id number] 2016 2016 MEDICAID 00:00:00 00:00:00 Problems Condition [...] of Problem Active [facility] [address] atres[facility] Atresia 00:00: Medical 00 Group Irritable Irritable Disease Active [facility] bowel bowel 04-24 [place] syndrome syndrome 00:00: of with with 00 Medicin constipati constipati e on on Obesity Obesity Disease Active [facility] 10-12 [facility] 00:00: t & Plan: of 00 Formattin Medicin g of this e note might be different from the original. 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 Doing well post partumEnc ouraged to cont inhaler useInhale r tech demonstra tedProvid ed refills and PFM SARAH SARAH Disease [facility] 2012[facility] ve sleep ve sleep 00:00: t & [...] sleep study Atopic Atopic Disease [facility] dermat[facility] 5-10 Formattin ity of and and 00:00: g of this [place] related related 00 note Medical condition condition might be Br anch different from the original. EczemaICD 10 Diagnosis Term Loading Machine Adjuster Utility Asthma Asthma Disease Active Overview: Univer s 5-10 Formattin ity of 00:00: g of this [place] 00 note Medical might be Branch different from the original. 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 Diagnosis Term Loading Machine Adjuster Utility Allergies, Adverse Reactions, Alerts Allergy Allergy Status Severity Reaction(s) Onset Inactive Treating Comm ents Source Name Type Date Date Clinician Tiotropi Propensi Active Itching 2013-03 [facility] r um ty to 0-03 [place] adverse 00:00: of reaction 00 Medicin s to e drug Spiriva Propensi Active Hives [facility] Handihal ty to 7 [place] er adverse 00:00: of reaction 00 Medicin s to e drug Spiriva Allergy Active [place] with to da Handihal substanc Medica l er e Group NO KNOWN Drug Active Univers ALLERGIE Class ity of S [facility] Social History Social Habit Start Date Stop Date Quantity Comments Source Exposure to Not sure University of SARS-CoV-2 [place] [facility] (event) Branch Alcohol intake 2021-03-16 2021-03-16 Current [facility] Col lege of 00:00:00 00:00:00 non-drinker of Medicine alcohol (finding) Tobacco use and 2013-03-02 2013-03-02 Smokeless tobacco [facility] of exposure 00:00:00 00:00:00 non-user Medicine Sex Assigned At [birth year] [facility] Co llege of 00:00:00 00:00:00 Medicine Smoking Status Start Date Stop Date Source Never smoked tobacco [facility] Is[facility]ell ege of Medicine Medications Ordered Filled Start Stop Current Ordering Indication Dosage Frequency Signature Comments Components Source Medication Medication Date Date Medication? Clinician (SIG) Name Name Albuterol Yes INHALE 2 [facility] or Sulfate 2-04 PUFFS BY [place] (PROAIR 00:00: MOUTH of HFA) 108 00 EVERY 4 Medicin (90 Base) HOURS e MCG/ACT NEEDED FOR AERS WHEEZING Fluticasone 2020-03 Yes Advair HFA [place] -Salmeterol 2-23 230 mcg-21 Co llege 230-21 15:01: mcg/actuat of MCG/ACT 23 ion Medicin AERO aerosol e inhaler Fluticasone 2020-03 Yes Advair HFA [place] -Salmeterol 2-23 230 mcg-21 Co llege 230-21 15:01: mcg/actuat of MCG/ACT 23 ion Medicin AERO aerosol e inhaler bumetanide 2020-03 Yes [facility] (BUMEX) 1 2-09 College MG tablet 00:00: of 00 Medicin e bumetanide 2020-03 Yes [place] (BUMEX) 1 2-09 College MG tablet 00:00: of 00 Medicin e albuterol Yes 180ug Inhale 2 [place] [facility] (PROAIR 8-18 Puffs by [place] HFA) 108 00:00: mouth of (90 base) 00 every 4 Medicin mcg/act hours as e inhaler needed for Wheezing. Fluticasone Yes [id number] INHALE 2 [facility] -Salmeterol 8-18 PUFFS BY [place] ege (ADVAIR 00:00: MOUTH of HFA) 230-21 00 TWICE A Medic in MCG/ACT DAY e AERO albuterol Yes 180ug Inhale 2 [place] [employer] (PROAIR 8-[facility] 108 00:00: mouth of (90 base) 00 every 4 Medicin mcg/act hours as e inhaler needed for Wheezing. Fluticasone 0 Yes [id number] INHALE 2 [facility] -Salmeterol 8-18 PUFFS BY [place] ege (ADVAIR 00:00: MOUTH of HFA) 230-21 00 TWICE A Medic in MCG/ACT DAY e AERO furosemide Yes 20mg Take 20 mg [facility] (LASIX) 20 8-11 by mouth Colle ge MG tablet 00:00: daily. of Medicin e furosemide Yes 20mg Take 20 mg [facility] (LASIX) 20 8-11 by mouth Colle ge MG tablet 00:00: daily. of Medicin e fluocinolon Yes [id number] Apply to Univers e 8-02 area(s) 2 ity of (DERMA-SMOO 00:00: (two) [place] THE/FS BODY 00 times Medical OIL) 0.01 % daily as Bran ch body oil needed for Rash. fluticasone 0 Yes [id number] Apply to Univers propionate 8-02 area(s) 2 ity of 0.005 % 00:00: (two) [place] ointment 00 times Medical daily. Branch fluocinolon 2020-0 Yes [id number] Apply to Univers e 8-02 area(s) 2 ity of (DERMA-SMOO 00:00: (two) [place] THE/FS BODY 00 times Medical OIL) 0.01 % daily as Bran ch body oil needed for Rash. fluticasone 2020-0 Yes [id number] Apply to Univers propionate 8-02 area(s) 2 ity of 0.005 % 00:00: (two) [place] ointment 00 times Medical daily. Branch fluocinolon 2020-0 Yes [id number] Apply to Univers e 8-02 area(s) 2 ity of (DERMA-SMOO 00:00: (two) [place] THE/FS BODY 00 times Medical OIL) 0.01 % daily as Bran ch body oil needed for Rash. fluticasone 2021-0 Yes [id number] Apply to Univers propionate 8-02 area(s) 2 ity of 0.005 % 00:00: (two) [place] ointment 00 times Medical daily. Branch fluocinolon 2021-0 Yes [id number] Apply to Univers e 8-02 area(s) 2 ity of (DERMA-SMOO 00:00: (two) [place] THE/FS BODY 00 times Medical OIL) 0.01 % daily as Bran ch body oil needed for Rash. fluticasone 2021-0 Yes [id number] Apply to Univers propionate 8-02 area(s) 2 ity of 0.005 % 00:00: (two) [place] ointment 00 times Medical daily. Branch fluocinolon 2021-0 Yes [id number] Apply to Univers e 8-02 area(s) 2 ity of (DERMA-SMOO 00:00: (two) [place] THE/FS BODY 00 times Medical OIL) 0.01 % daily as Bran ch body oil needed for Rash. fluticasone 2021-0 Yes [id number] Apply to Univers propionate 8-02 area(s) 2 ity of 0.005 % 00:00: (two) [place] ointment 00 times Medical daily. Branch crisaborole 2021-0 Yes [id number] Apply to Univers (EUCRISA) 2 5-11 area(s) 2 ity of % Oint 00:00: (two) [place] 00 times Medical daily as Branch needed (eczema). crisaborole 2021-0 Yes [id number] Apply to Univers (EUCRISA) 2 5-11 area(s) 2 ity of % Oint 00:00: (two) [place] 00 times Medical daily as Branch needed (eczema). crisaborole 2021-0 Yes [id number] Apply to Univers (EUCRISA) 2 5-11 area(s) 2 ity of % Oint 00:00: (two) [place] 00 times Medical daily as Branch needed (eczema). crisaborole 2021-0 Yes [id number] Apply to Univers (EUCRISA) 2 5-11 area(s) 2 ity of % Oint 00:00: (two) [place] 00 times Medical daily as Branch needed (eczema). crisaborole 2021-0 Yes [id number] Apply to Univers (EUCRISA) 2 5-11 area(s) 2 ity of % Oint 00:00: (two) [place] 00 times Medical daily as Branch needed (eczema). crisaborole 2021-0 Yes [id number] Apply to Univers (EUCRISA) 2 5-11 area(s) [...] times Medical daily. Branch dupilumab 2020-0 Yes [id number] 300mg inject 1 Univers (DUPIXENT 4-26 Syringe [...] ch body oil needed for Rash. fluticasone 202-0 Yes Apply to U nivers propionate 4-26 area(s) 2 ity of 0.005 % 00:00: (two) [place] ointment 00 times Medical daily. Branch dupilumab 2021-0 Yes [id number] 300mg inject 1 Univers (DUPIXENT 4-26 Syringe ity of S[place]) 00:00: [place] mg/2 mL 00 skin every Me dical Syrg 2 (two) Branch syringe weeks. ketoconazol 2021-0 Yes Apply to U nivers e 2 % 4-26 area(s) 2 ity of shampoo 00:00: (two) [place] 00 times per Medical week for Branch Itching. dupilumab 2021-0 Yes [id number] 300mg inject 1 Univers (DUPIXENT 4-26 Syringe ity of SYRINGE) 00:00: [place] mg/2 mL 00 skin every Me dical Syrg 2 (two) Branch syringe weeks. ketoconazol 2021-0 Yes Apply to U nivers e 2 % 4-26 area(s) 2 ity of shampoo 00:00: (two) [place] 00 times per Medical week for Branch Itching. dupilumab 2021-0 Yes [id number] 300mg inject 1 Univers (DUPIXENT 4-26 Syringe ity of [place]) 00:00: [place] mg/2 mL 00 skin every Me dical Syrg 2 (two) Branch syringe weeks. ketoconazol 2021-0 Yes Apply to U nivers e 2 % 4-26 area(s) 2 ity of shampoo 00:00: (two) [place] 00 times per Medical week for Branch Itching. dupilumab 2021-0 Yes [id number] 300mg inject 1 Univers (DUPIXENT 4-26 Syringe ity of [place]) 00:00: [place] mg/2 mL 00 skin every Me dical Syrg 2 (two) Branch syringe weeks. ketoconazol 2021-0 Yes Apply to U nivers e 2 % 4-26 area(s) 2 ity of shampoo 00:00: (two) [place] 00 times per Medical week for Branch Itching. dupilumab 2021-0 Yes [id number] 300mg inject 1 Univers (DUPIXENT 4-26 Syringe ity of [place]) 00:00: [place] mg/2 mL 00 skin every Me dical Syrg 2 (two) Branch syringe weeks. ketoconazol 2021-0 Yes Apply to U nivers e 2 % 4-26 area(s) 2 ity of shampoo 00:00: (two) [place] 00 times per Medical week for Branch Itching. dupilumab Yes [id number] 300mg inject 1 Univers (DUPIXENT 4-26 Syringe ity of [place]) 00:00: [place] 300 mg/2 mL 00 skin every Me dical Syrg 2 (two) Branch syringe weeks. fluocinolon 2020- No Apply to Univers e 4- 08-02 area(s) 2 ity of (DERMA-SMOO 00:00: 00:00 (two) [place] THE/FS BODY 00 :00 times Medical OIL) 0.01 % daily as Bran ch body oil needed for Rash. fluticasone 2020- No Apply to Univers propionate 07-18 08- area(s) 2 ity of 0.005 % 00:00: 00:00 (two) [place] ointment 00 :00 times Medical daily. Branch fluocinolon 2020- No Apply to Univers e 4-17 11- area(s) 2 ity of (DERMA-SMOO 00:00: 00:00 (two) [place] THE/FS BODY 00 :00 times Medical OIL) 0.01 % daily as Bran ch body oil needed for Rash. fluticasone 2020- No Apply to Univers propionate 07-18- area(s) 2 ity of 0.005 % 00:00: 00:00 (two) [place] ointment 00 :00 times Medical daily. Branch fluocinolon 2020- No Apply to Univers e 4-17 11-02 area(s) 2 ity of (DERMA-SMOO 00:00: 00:00 (two) [place] THE/FS BODY 00 :00 times Medical OIL) 0.01 % daily as Bran ch body oil needed for Rash. fluticasone 2020- No Apply to Univers propionate 4 08-02 area(s) 2 ity of 0.005 % 00:00: 00:00 (two) [place] ointment 00 :00 times Medical daily. Branch fluocinolon 2020- No Apply to Univers e 4-17 11-02 area(s) 2 ity of (DERMA-SMOO 00:00: 00:00 (two) [place] THE/FS BODY 00 :00 times Medical OIL) 0.01 % daily as Bran ch body oil needed for Rash. fluticasone 0 2020- No Apply to Univers propionate 07-18 0802 area(s) 2 ity of 0.005 % 00:00: 00:00 (two) [place] ointment 00 :00 times Medical daily. Branch dupilumab 2020- No [id number] 600mg inject 2 Univers 300 mg/2 mL 07-18 05- Syringes ity of Syrg 00:00: 04:59 under the [place] syringe 00 :00 skin once Medical now for 1 Branch dose. Fluticasone Yes [id number] INHALE 2 [place] -Salmeterol 2-25 PUFFS BY Isabell quiñonez (ADVAIR 00:00: MOUTH of HFA) 230-21 00 TWICE A Medic in MCG/ACT DAY e AERO fluocinolon Yes [id number] Apply to Univers e 2-25 area(s) 2 ity of (DERMA-SMOO 00:00: (two) [place] THE/FS BODY 00 times Medical OIL) 0.01 % daily as Bran ch body oil needed for Rash. fluticasone Yes [id number] Apply to Univers propionate 2-25 area(s) 2 ity of 0.005 % 00:00: (two) [place] ointment 00 times Medical daily. Branch salicylic 0 Yes [id number] Apply to Univers acid 6 % 2-25 plantar ity of gel 00:00: feet under [place] 00 occlusion Medical 2-3 times Branch per week fluocinolon 2020-0 Yes [id number] Apply to Univers e 2-25 area(s) 2 ity of (DERMA-SMOO 00:00: (two) [place] THE/FS BODY 00 times Medical OIL) 0.01 % daily as Bran ch body oil needed for Rash. fluticasone 0 Yes [id number] Apply to Univers propionate 2-25 area(s) 2 ity of 0.005 % 00:00: (two) [place] ointment 00 times Medical daily. Branch salicylic Yes [id number] Apply to Univers acid 6 % 2-25 plantar ity of gel 00:00: feet under [place] 00 occlusion Medical 2-3 times Branch per week fluocinolon 202-0 Yes [id number] Apply to Univers e 2-25 area(s) 2 ity of (DERMA-SMOO 00:00: (two) [place] THE/FS BODY 00 times Medical OIL) 0.01 % daily as Bran ch body oil needed for Rash. fluticasone 2020-0 Yes [id number] Apply to Univers propionate 2-25 area(s) 2 ity of 0.005 % 00:00: (two) [place] ointment 00 times Medical daily. Branch salicylic 2020-0 Yes [id number] Apply to Univers acid 6 % 2-25 plantar ity of gel 00:00: feet under [place] 00 occlusion Medical 2-3 times Branch per week fluocinolon 2020-0 Yes [id number] Apply to Univers e 2-25 area(s) 2 ity of (DERMA-SMOO 00:00: (two) [place] THE/FS BODY 00 times Medical OIL) 0.01 % daily as Bran ch body oil needed for Rash. fluticasone 2020-0 Yes [id number] Apply to Univers propionate 2-25 area(s) 2 ity of 0.005 % 00:00: (two) [place] ointment 00 times Medical daily. Branch salicylic 2020-0 Yes [id number] Apply to Univers acid 6 % 2-25 plantar ity of gel 00:00: feet under [place] 00 occlusion Medical 2-3 times Branch per week fluocinolon 2020-0 Yes [id number] Apply to Univers e 2-25 area(s) 2 ity of (DERMA-SMOO 00:00: (two) [place] THE/FS BODY 00 times Medical OIL) 0.01 % daily as Bran ch body oil needed for Rash. fluticasone 2020-0 Yes [id number] Apply to Univers propionate 2-25 area(s) 2 ity of 0.005 % 00:00: (two) [place] ointment 00 times Medical daily. Branch salicylic 2020-0 Yes [id number] Apply to Univers acid 6 % 2-25 plantar ity of gel 00:00: feet under [place] 00 occlusion Medical 2-3 times Branch per week salicylic 2021-0 Yes [id number] Apply to Univers acid 6 % 2-25 plantar ity of gel 00:00: feet under [place] 00 occlusion Medical 2-3 times Branch per week salicylic Yes [id number] Apply to Univers acid 6 % 2-25 plantar ity of gel 00:00: feet under [place] 00 occlusion Medical 2-3 times Branch per week salicylic Yes [id number] Apply to Univers acid 6 % 2-25 plantar ity of gel 00:00: feet under [place] 00 occlusion Medical 2-3 times Branch per week salicylic Yes [id number] Apply to Univers acid 6 % 2-25 plantar ity of gel 00:00: feet under [place] 00 occlusion Medical 2-3 times Branch per week salicylic Yes [id number] Apply to Univers acid 6 % 2-25 plantar ity of gel 00:00: feet under [place] 00 occlusion Medical 2-3 times Branch per week salicylic Yes [id number] Apply to Univers acid 6 % 2-25 plantar ity of gel 00:00: feet under [place] 00 occlusion Medical 2-3 times Branch per week salicylic Yes [id number] Apply to Univers acid 6 % 2-25 plantar ity of gel 00:00: feet under [place] 00 occlusion Medical 2-3 times Branch per week fluocinolon 2020- No [id number] Apply to Univers e 2-25 04-26 area(s) 2 ity of (DERMA-SMOO 00:00: 00:00 (two) [place] THE/FS BODY 00 :00 times Medical OIL) 0.01 % daily as Bran ch body oil needed for Rash. fluticasone 2020- No [id number] Apply to Univers propionate 2-25 04-26 area(s) 2 ity of 0.005 % 00:00: 00:00 (two) [place] ointment 00 :00 times Medical daily. Branch Fluticasone 2019-03- No [id number] INHALE 2 [place] -Salmeterol 2-17 02-25 PUFFS BY [facility] (ADVAIR 00:00: 00:00 MOUTH of HFA) 230-21 00 :00 TWICE A Medic in MCG/ACT DAY MUST e AERO COMPLETE PULMONOLOG Y APPT FOR FUTURE REFILLS PROVENTIL 2019-03 Yes [id number] INHALE 2 [place] HFA 108 (90 0-12 PUFFS BY [facility]) 00:00: MOUTH 4 of MCG/ACT 00 TIMES A Medicin inhaler DAY e PROVENTIL 2019-03 Yes [id number] INHALE 2 [place] HFA 108 (90 0-12 PUFFS BY [facility] e[facility]) 00:00: MOUTH 4 of MCG/ACT 00 TIMES A Medicin inhaler DAY e PROVENTIL 2019-03 Yes [id number] INHALE 2 [facility] HFA 108 (90 0-12 PUFFS BY [facility] e[facility] Base) 00:00: MOUTH 4 of MCG/ACT 00 TIMES A Medicin inhaler DAY e lactulose 2020- No 20g Take 1 [facility] (CEPHULAC) 08-20 Packet by Col lege 20 g packet 00:00: 00:00 mouth 3 of 00 :00 times Medicin daily. e salicylic Yes [id number] Apply to Univers acid 6 % 1-15 plantar ity of gel 00:00: feet under [place] 00 occlusion Medical 2-3 times Branch per week fluticasone 2020-0 Yes [id number] Apply to Univers propionate 1-15 area(s) 2 ity of 0.005 % 00:00: (two) [place] ointment 00 times Medical daily. Branch fluocinolon 2019-0 Yes [id number] Apply to Univers e 1-15 area(s) 3 ity of (DERMA-SMOO 00:00: (three) [place] as THE/FS BODY 00 times Medical OIL) 0.01 % daily. Branch body oil salicylic 2019-0 Yes [id number] Apply to Univers acid 6 % 1-15 plantar ity of gel 00:00: feet under [place] 00 occlusion Medical 2-3 times Branch per week fluticasone 2020-0 Yes [id number] Apply to Univers propionate 1-15 area(s) 2 ity of 0.005 % 00:00: (two) [place] ointment 00 times Medical daily. Branch fluocinolon 2020-0 Yes [id number] Apply to Univers e 1-15 area(s) 3 ity of (DERMA-SMOO 00:00: (three) [place] as THE/FS BODY 00 times Medical OIL) 0.01 % daily. Branch body oil salicylic 2019-0 2020- No [id number] Apply to Univers acid 6 % 1-15 02-25 plantar ity of gel 00:00: 00:00 feet under [place] 00 :00 occlusion Medical 2-3 times Branch per week fluticasone 2020- No [id number] Apply to Univers propionate 04-08 area(s) 2 ity of 0.005 % 00:00: 00:00 (two) [place] ointment 00 :00 times Medical daily. Branch fluocinolon 2020- No [id number] Apply to Univers e 04-08 area(s) 3 ity of (DERMA-SMOO 00:00: 00:00 (three) [place] THE/FS BODY 00 :00 times Medical OIL) 0.01 % daily. Branch body oil salicylic 2020- No [id number] Apply to Univers acid 6 % 04-08 plantar ity of gel 00:00: 00:00 feet under [place] 00 :00 occlusion Medical 2-3 times Branch per week fluticasone 2020- No [id number] Apply to Univers propionate 04-08 area(s) 2 ity of 0.005 % 00:00: 00:00 (two) [place] ointment 00 :00 times Medical daily. Branch fluocinolon 2020- No [id number] Apply to Univers e 04-08 area(s) 3 ity of (DERMA-SMOO 00:00: 00:00 (three) [place] THE/FS BODY 00 :00 times Medical OIL) 0.01 % daily. Branch body oil Singulair Singulair Yes [place] [address] [facility] ketorolac Yes [id number] 10mg Take 1 Un sally 10 mg 2-08 tablet by ity of tablet 00:00: mouth [place] 00 every 6 Medical (six) Branch hours as needed for Pain (scale 7-10) (Do not take more than 3 days in a row). ondansetron Yes [id number] 4mg Take 1 Univers 4 mg 2-08 tablet by ity of disintegrat 00:00: mouth [place] ing tablet 00 every 4 Medica l (four) Branch hours as needed for Nausea and Vomiting (N/V). tamsulosin Yes [id number] .4mg Take 1 U nivers 0.4 mg 24 2-08 capsule by ity of hr capsule 00:00: mouth at [place] as 00 bedtime. Medical Branch acetaminoph 2019-0 Yes [id number] 500mg Take 1 Univers en 500 mg 2-08 tablet by ity o f tablet 00:00: mouth [place] 00 every 6 Medical (six) Branch hours as needed for Pain. gabapentin 2019-0 Yes [id number] 300mg Take 1 Univers 300 mg 2-08 capsule by ity of capsule 00:00: mouth 3 [place] 00 (three) Medical times Branch daily. ketorolac 2019-0 Yes [id number] 10mg Take 1 Un sally 10 mg 2-08 tablet by ity of tablet 00:00: mouth [place] 00 every 6 Medical (six) Branch hours as needed for Pain (scale 7-10) (Do not take more than 3 days in a row). ondansetron 2019-0 Yes [id number] 4mg Take 1 Univers 4 mg 2-08 tablet by ity of disintegrat 00:00: mouth [place] ing tablet 00 every 4 Medica l (four) Branch hours as needed for Nausea and Vomiting (N/V). tamsulosin 2019-0 Yes [id number] .4mg Take 1 U nivers 0.4 mg 24 2-08 capsule by ity of hr capsule 00:00: mouth at [place] as 00 bedtime. Medical Branch acetaminoph 2019-0 Yes [id number] 500mg Take 1 Univers en 500 mg 2-08 tablet by ity o f tablet 00:00: mouth [place] 00 every 6 Medical (six) Branch hours as needed for Pain. gabapentin 2019-0 Yes [id number] 300mg Take 1 Univers 300 mg 2-08 capsule by ity of capsule 00:00: mouth 3 [place] 00 (three) Medical times Branch daily. ketorolac 2019-0 Yes [id number] 10mg Take 1 Un sally 10 mg 2-08 tablet by ity of tablet 00:00: mouth [place] 00 every 6 Medical (six) Branch hours as needed for Pain (scale 7-10) (Do not take more than 3 days in a row). ondansetron 2019-0 Yes [id number] 4mg Take 1 Univers 4 mg 2-08 tablet by ity of disintegrat 00:00: mouth [place] ing tablet 00 every 4 Medica l (four) Branch hours as needed for Nausea and Vomiting (N/V). tamsulosin 2019-0 Yes [id number] .4mg Take 1 U nivers 0.4 mg 24 2-08 capsule by ity of hr capsule 00:00: mouth at [place] as 00 bedtime. Medical Branch acetaminoph 2019-0 Yes [id number] 500mg Take 1 Univers en 500 mg 2-08 tablet by ity o f tablet 00:00: mouth [place] 00 every 6 Medical (six) Branch hours as needed for Pain. gabapentin 2019-0 Yes [id number] 300mg Take 1 Univers 300 mg 2-08 capsule by ity of capsule 00:00: mouth 3 [place] 00 (three) Medical times Branch daily. ketorolac 2019-0 Yes [id number] 10mg Take 1 Un sally 10 mg 2-08 tablet by ity of tablet 00:00: mouth [place] 00 every 6 Medical (six) Branch hours as needed for Pain (scale 7-10) (Do not take more than 3 days in a row). ondansetron 2019-0 Yes [id number] 4mg Take 1 Univers 4 mg 2-08 tablet by ity of disintegrat 00:00: mouth [place] ing tablet 00 every 4 Medica l (four) Branch hours as needed for Nausea and Vomiting (N/V). tamsulosin 2019-0 Yes [id number] .4mg Take 1 U nivers 0.4 mg 24 2-08 capsule by ity of hr capsule 00:00: mouth at [place] as 00 bedtime. Medical Branch acetaminoph 2019-0 Yes [id number] 500mg Take 1 Univers en 500 mg 2-08 tablet by ity o f tablet 00:00: mouth [place] 00 every 6 Medical (six) Branch hours as needed for Pain. gabapentin 2019-0 Yes [id number] 300mg Take 1 Univers 300 mg 2-08 capsule by ity of capsule 00:00: mouth 3 [place] 00 (three) Medical times Branch daily. ketorolac 2019-0 Yes [id number] 10mg Take 1 Un sally 10 mg 2-08 tablet by ity of tablet 00:00: mouth [place] 00 every 6 Medical (six) Branch hours as needed for Pain (scale 7-10) (Do not take more than 3 days in a row). ondansetron 2019-0 Yes [id number] 4mg Take 1 Univers 4 mg 2-08 tablet by ity of disintegrat 00:00: mouth [place] ing tablet 00 every 4 Medica l (four) Branch hours as needed for Nausea and Vomiting (N/V). tamsulosin 2019-0 Yes [id number] .4mg Take 1 U nivers 0.4 mg 24 2-08 capsule by ity of hr capsule 00:00: mouth at [place] 00 bedtime. Medical Branch acetaminoph 2019-0 Yes [id number] 500mg Take 1 [facility] en 500 mg 2-08 tablet by ity o f tablet 00:00: mouth [place] 00 every 6 Medical (six) Branch hours as needed for Pain. gabapentin 2019-0 Yes [id number] 300mg Take 1 [facility] 300 mg 2-08 capsule by ity of capsule 00:00: mouth 3 [place] 00 (three) Medical times Branch daily. ketorolac 2019-0 Yes [id number] 10mg Take 1 Un [facility]ally 10 mg 2-08 tablet by ity of tablet 00:00: mouth [place] 00 every 6 Medical (six) Branch hours as needed for Pain (scale 7-10) (Do not take more than 3 days in a row). ondansetron 2019-0 Yes [id number] 4mg Take 1 [facility] 4 mg 2-08 tablet by ity of disintegrat 00:00: mouth [place] ing tablet 00 every 4 Medica l (four) Branch hours as needed for Nausea and Vomiting (N/V). tamsulosin 2019-0 Yes [id number] .4mg Take 1 U nivers 0.4 mg 24 2-08 capsule by ity of hr capsule 00:00: mouth at [place] 00 bedtime. Medical Branch acetaminoph 2019-0 Yes [id number] 500mg Take 1 [facility] en 500 mg 2-08 tablet by ity o f tablet 00:00: mouth [place] 00 every 6 Medical (six) Branch hours as needed for Pain. gabapentin 2019-0 Yes [id number] 300mg Take 1 [facility] 300 mg 2-08 capsule by ity of capsule 00:00: mouth 3 [place] 00 (three) Medical times Branch daily. ketorolac 2019-0 Yes [id number] 10mg Take 1 Un sally 10 mg 2-08 tablet by ity of tablet 00:00: mouth [place] 00 every 6 Medical (six) Branch hours as needed for Pain (scale 7-10) (Do not take more than 3 days in a row). ondansetron 2019-0 Yes [id number] 4mg Take 1 [facility] 4 mg 2-08 tablet by ity of disintegrat 00:00: mouth [place] ing tablet 00 every 4 Medica l (four) Branch hours as needed for Nausea and Vomiting (N/V). tamsulosin 2019-0 Yes [id number] .4mg Take 1 U nivers 0.4 mg 24 2-08 capsule by ity of hr capsule 00:00: mouth at [place] 00 bedtime. Medical Branch acetaminoph 2019-0 Yes [id number] 500mg Take 1 [facility] en 500 mg 2-08 tablet by ity o f tablet 00:00: mouth [place] 00 every 6 Medical (six) Branch hours as needed for Pain. gabapentin 2019-0 Yes [id number] 300mg Take 1 [facility] 300 mg 2-08 capsule by ity of capsule 00:00: mouth 3 [place] 00 (three) Medical times Branch daily. ketorolac 2019-0 Yes [id number] 10mg Take 1 [facility]ally 10 mg 2-08 tablet by ity of tablet 00:00: mouth [place] 00 every 6 Medical (six) Branch hours as needed for Pain (scale 7-10) (Do not take more than 3 days in a row). ondansetron 2019-0 Yes [id number] 4mg Take 1 [facility] 4 mg 2-08 tablet by ity of disintegrat 00:00: mouth [place] ing tablet 00 every 4 Medica l (four) Branch hours as needed for Nausea and Vomiting (N/V). tamsulosin 2019-0 Yes [id number] .4mg Take 1 U nivers 0.4 mg 24 2-08 capsule by ity of hr capsule 00:00: mouth at [place] 00 bedtime. Medical Branch acetaminoph 2019-0 Yes [id number] 500mg Take 1 [facility] en 500 mg 2-08 tablet by ity o f tablet 00:00: mouth [place] 00 every 6 Medical (six) Branch hours as needed for Pain. gabapentin 2019-0 Yes [id number] 300mg Take 1 [facility] 300 mg 2-08 capsule by ity of capsule 00:00: mouth 3 [place] 00 (three) Medical times Branch daily. ketorolac 2019-0 Yes [id number] 10mg Take 1 [facility] 10 mg 2-08 tablet by ity of tablet 00:00: mouth [place] 00 every 6 Medical (six) Branch hours as needed for Pain (scale 7-10) (Do not take more than 3 days in a row). ondansetron 2019-0 Yes [id number] 4mg Take 1 [facility] 4 mg 2-08 tablet by ity of disintegrat 00:00: mouth [place] ing tablet 00 every 4 Medica l (four) Branch hours as needed for Nausea and Vomiting (N/V). tamsulosin 2019-0 Yes [id number] .4mg Take 1 U nivers 0.4 mg 24 2-08 capsule by ity of hr capsule 00:00: mouth at [place] 00 bedtime. Medical Branch acetaminoph 2019-0 Yes [id number] 500mg Take 1 [facility] en 500 mg 2-08 tablet by ity o f tablet 00:00: mouth [place] 00 every 6 Medical (six) Branch hours as needed for Pain. gabapentin 2019-0 Yes [id number] 300mg Take 1 [facility] 300 mg 2-08 capsule by ity of capsule 00:00: mouth 3 [place] 00 (three) Medical times Branch daily. ketorolac 2019-0 Yes [id number] 10mg Take 1 [facility] 10 mg 2-08 tablet by ity of tablet 00:00: mouth [place] 00 every 6 Medical (six) Branch hours as needed for Pain (scale 7-10) (Do not take more than 3 days in a row). ondansetron 2019-0 Yes [id number] 4mg Take 1 [facility] 4 mg 2-08 tablet by ity of disintegrat 00:00: mouth [place] ing tablet 00 every 4 Medica l (four) Branch hours as needed for Nausea and Vomiting (N/V). tamsulosin 2019-0 Yes [id number] .4mg Take 1 U nivers 0.4 mg 24 2-08 capsule by ity of hr capsule 00:00: mouth at [place] 00 bedtime. Medical Branch acetaminoph 2019-0 Yes [id number] 500mg Take 1 [facility] en 500 mg 2-08 tablet by ity o f tablet 00:00: mouth [place] 00 every 6 Medical (six) Branch hours as needed for Pain. gabapentin 2019-0 Yes [id number] 300mg Take 1 [facility] 300 mg 2-08 capsule by ity of capsule 00:00: mouth 3 [place] 00 (three) Medical times Branch daily. ketorolac 2019-0 Yes [id number] 10mg Take 1 [facility] 10 mg 2-08 tablet by ity of tablet 00:00: mouth [place] 00 every 6 Medical (six) Branch hours as needed for Pain (scale 7-10) (Do not take more than 3 days in a row). ondansetron 2019-0 Yes [id number] 4mg Take 1 [facility] 4 mg 2-08 tablet by ity of disintegrat 00:00: mouth [place] ing tablet 00 every 4 Medica l (four) Branch hours as needed for Nausea and Vomiting (N/V). tamsulosin 2019-0 Yes [id number] .4mg Take 1 U nivers 0.4 mg 24 2-08 capsule by ity of hr capsule 00:00: mouth at [place] 00 bedtime. Medical Branch acetaminoph 2019-0 Yes [id number] 500mg Take 1 [facility] en 500 mg 2-08 tablet by ity o f tablet 00:00: mouth [place] 00 every 6 Medical (six) Branch hours as needed for Pain. gabapentin 2019-0 Yes [id number] 300mg Take 1 [facility] 300 mg 2-08 capsule by ity of capsule 00:00: mouth 3 [place] 00 (three) Medical times Branch daily. ketorolac 2019-0 Yes [id number] 10mg Take 1 [facility] 10 mg 2-08 tablet by ity of tablet 00:00: mouth [place] 00 every 6 Medical (six) Branch hours as needed for Pain (scale 7-10) (Do not take more than 3 days in a row). ondansetron 2019-0 Yes [id number] 4mg Take 1 [facility] 4 mg 2-08 tablet by ity of disintegrat 00:00: mouth [place] ing tablet 00 every 4 Medica l (four) Branch hours as needed for Nausea and Vomiting (N/V). tamsulosin 2019-0 Yes [id number] .4mg Take 1 U nivers 0.4 mg 24 2-08 capsule by ity of hr capsule 00:00: mouth at [place] 00 bedtime. Medical Branch acetaminoph 2019-0 Yes [id number] 500mg Take 1 [facility] en 500 mg 2-08 tablet by ity o f tablet 00:00: mouth [place] 00 every 6 Medical (six) Branch hours as needed for Pain. gabapentin 2019-0 Yes [id number] 300mg Take 1 [facility] 300 mg 2-08 capsule by ity of capsule 00:00: mouth 3 [place] 00 (three) Medical times Branch daily. ketorolac 2019-0 Yes [id number] 10mg Take 1 [facility] 10 mg 2-08 tablet by ity of tablet 00:00: mouth [place] 00 every 6 Medical (six) Branch hours as needed for Pain (scale 7-10) (Do not take more than 3 days in a row). ondansetron 2019-0 Yes [id number] 4mg Take 1 [facility] 4 mg 2-08 tablet by ity of disintegrat 00:00: mouth [place] ing tablet 00 every 4 Medica l (four) Branch hours as needed for Nausea and Vomiting (N/V). tamsulosin 2019-0 Yes [id number] .4mg Take 1 U nivers 0.4 mg 24 2-08 capsule by ity of hr capsule 00:00: mouth at [place] 00 bedtime. Medical Branch acetaminoph 2019-0 Yes [id number] 500mg Take 1 [facility] en 500 mg 2-08 tablet by ity o f tablet 00:00: mouth [place] 00 every 6 Medical (six) Branch hours as needed for Pain. gabapentin 2019-0 Yes [id number] 300mg Take 1 [facility] 300 mg 2-08 capsule by ity of capsule 00:00: mouth 3 [place] 00 (three) Medical times Branch daily. ketorolac 2019-0 Yes [id number] 10mg Take 1 Un [facility] 10 mg 2-08 tablet by ity of tablet 00:00: mouth [place] 00 every 6 Medical (six) Branch hours as needed for Pain (scale 7-10) (Do not take more than 3 days in a row). ondansetron 2019-0 Yes [id number] 4mg Take 1 [facility] 4 mg 2-08 tablet by ity of disintegrat 00:00: mouth [place] ing tablet 00 every 4 Medica l (four) Branch hours as needed for Nausea and Vomiting (N/V). tamsulosin 2019-0 Yes [id number] .4mg Take 1 U nivers 0.4 mg 24 2-08 capsule by ity of hr capsule 00:00: mouth at [place] 00 bedtime. Medical Branch acetaminoph 2019-0 Yes [id number] 500mg Take 1 [facility] en 500 mg 2-08 tablet by ity o f tablet 00:00: mouth [place] 00 every 6 Medical (six) Branch hours as needed for Pain. gabapentin 2019- Yes [id number] 300mg Take 1 [facility] 300 mg 2-08 capsule by ity of capsule 00:00: mouth 3 [place] 00 (three) Medical times Branch daily. ketorolac 2019- Yes [id number] 10mg Take 1 Un [facility]ally 10 mg 2-08 tablet by ity of tablet 00:00: mouth [place] 00 every 6 Medical (six) Branch hours as needed for Pain (scale 7-10) (Do not take more than 3 days in a row). ondansetron 2019- Yes [id number] 4mg Take 1 [facility] 4 mg 2-08 tablet by ity of disintegrat 00:00: mouth [place] ing tablet 00 every 4 Medica l (four) Branch hours as needed for Nausea and Vomiting (N/V). tamsulosin 2018- Yes [id number] .4mg Take 1 U nivers 0.4 mg 24 2-08 capsule by ity of hr capsule 00:00: mouth at [place] 00 bedtime. Medical Branch acetaminoph Yes [id number] 500mg Take 1 [facility] en 500 mg 2-08 tablet by ity o f tablet 00:00: mouth [place] 00 every 6 Medical (six) Branch hours as needed for Pain. gabapentin Yes [id number] 300mg Take 1 [facility] 300 mg 2-08 capsule by ity of capsule 00:00: mouth 3 [place] 00 (three) Medical times Branch daily. triamcinolo Yes [id number] Apply to [facility] 3-02 area(s) 2 ity of acetonide 00:00: (two) [place] 0.1 % 00 times Medical ointment daily. Branch triamcinolo Yes [id number] Apply to [facility] 3-02 area(s) 2 ity of acetonide 00:00: (two) [place] 0.1 % 00 times Medical ointment daily. Branch triamcinolo Yes [id number] Apply to [facility] ne 3-02 area(s) 2 ity of acetonide 00:00: (two) [place] 0.1 % 00 times Medical ointment daily. Branch triamcinolo 2020- No [id number] Apply to [facility] 05-24 area(s) 2 ity of acetonide 00:00: 00:00 (two) [place] 0.1 % 00 :00 times Medical ointment daily. [place] uniquestephen 2020- No [id number] Apply to [facility] 3-04 26-25 area(s) 2 ity of acetonide 00:00: 00:00 (two) [place] 0.1 % 00 :00 times Medical ointment daily. [place] triamcinolo Yes Apply to U nivers ne 6-16 area(s) 2 ity of acetonide 00:00: (two) [place] 0.1 % cream 00 times Medical daily. [place] triamcinolo Yes Apply to U nivers ne 6-16 area(s) 2 ity of acetonide 00:00: (two) [place] 0.1 % cream 00 times Medical daily. [place] triamcinstephen Yes Apply to U nivers ne 6-16 area(s) 2 ity of acetonide 00:00: (two) [place] 0.1 % cream 00 times Medical daily. [place] triamcinolo 2020- No Apply to [facility] 6-10 05- area(s) 2 ity of acetonide 00:00: 00:00 (two) [place] 0.1 % cream 00 :00 times Medical daily. [place] triamcinolo 2020- No Apply to [facility] 6-16 -25 area(s) 2 ity of acetonide [...] 0.01 % daily. Branch body oil fluticasone 2020- No Apply to Univers 0.005 % 07-25 area(s) 2 ity of ointment 00:00: 00:00 (two) [place] 00 :00 times Medical daily. Branch fluocinolon 2019- No Apply to [facility] e 07-25 area(s) 3 ity of (DERMA-SMOO 00:00: 00:00 (three) [place] THE/FS BODY 00 :00 times Medical OIL) 0.01 % daily. Branch body oil fluticasone 2020- No Apply to [facility] 0.005 % 07-25 area(s) 2 ity of ointment 00:00: 00:00 (two) [place] 00 :00 times Medical daily. Branch salicylic Yes Apply to Univ ers acid 6 % 3-14 plantar ity of gel 00:00: feet under [place] 00 occlusion Medical 2-3 times Branch per week salicylic 2020- No Apply to Uni vers acid 6 % 3-14 -15 plantar ity of gel 00:00: 00:00 feet under [place] 00 :00 occlusion Medical 2-3 times Branch per week salicylic 2020- No Apply to Uni vers acid 6 % 3-14 -15 plantar ity of gel 00:00: 00:00 feet under [place] 00 :00 occlusion Medical 2-3 times Branch per week eletriptan 2020- No [id number] 40mg Take 1 Tab [facility] (RELPAX) 40 8-19 02-25 by mouth [facility] MG tablet 00:00: 00:00 once as of 00 :00 needed for Medicin up to 1 e dose. may repeat in 2 hours if necessary Spacer/Aero 2015-0 Yes 1{devic 1 Device [facility] Chamber 7-13 e} daily. [place] Mouthpiece 00:00: of [facility] 00 Medicin e Spacer/Aero 2015-0 Yes 1{devic 1 Device [facility] Chamber 7-13 e} daily. [place] Mouthpiece 00:00: of MIS 00 Medicin e Spacer/Aero 2015-0 Yes 1{devic 1 Device [facility] Chamber 7-13 e} daily. [facility] Mouthpiece 00:00: of [facility] 00 Medicin e ketoconazol Yes [id number] Apply to Univers e (NIZORAL) 2-10 area(s) ity o f 2 % shampoo 00:00: daily. [facility] Medical Branch ketoconazol Yes [id number] Apply to Univers e (NIZORAL) 2-10 area(s) ity o f 2 % shampoo 00:00: daily. [place] [address] Medical Branch ketoconazol Yes [id number] Apply to Univers e (NIZORAL) 2-10 area(s) ity o f 2 % shampoo 00:00: daily. [facility] Medical Branch ketoconazol Yes [id number] Apply to Univers e (NIZORAL) 2-10 area(s) ity o f 2 % shampoo 00:00: daily. [place] [address] Medical Branch ketoconazol Yes [id number] Apply to Univers e (NIZORAL) 2-10 area(s) ity o f 2 % shampoo 00:00: daily. [place] [address] Medical Branch fluocinonid Yes Apply to U nivers e (LIDEX) 2-10 area(s) 2 ity o f 0.05 % 00:00: (two) [place] cream 00 times Medical daily. Branch ketoconazol Yes [id number] Apply to Univers e (NIZORAL) 2-10 area(s) ity o f 2 % shampoo 00:00: daily. [place] [address] Medical Branch fluocinonid Yes Apply to U nivers e (LIDEX) 2-10 area(s) 2 ity o f 0.05 % 00:00: (two) [place] cream 00 times Medical daily. Branch ketoconazol Yes [id number] Apply to Univers e (NIZORAL) 2-10 area(s) ity o f 2 % shampoo 00:00: daily. [place] [address] Medical Branch fluocinonid Yes Apply to U nivers e (LIDEX) 2-10 area(s) 2 ity o f 0.05 % 00:00: (two) [place] cream 00 times Medical daily. Branch ketoconazol Yes [id number] Apply to Univers e (NIZORAL) 210 area(s) ity o f 2 % shampoo 00:00: daily. [place] ketoconazol 2020- No [id number] Apply to Univers e (NIZORAL) 2- 04-26 area(s) ity of 2 % shampoo 00:00: 00:00 daily. [place] 00 :00 Medical Branch fluocinonid 2020- No Apply to Univers e (LIDEX) 05-04 area(s) 2 ity of 0.05 % 00:00: 00:00 (two) [place] cream 00 :00 times Medical daily. Branch fluocinonid 2020- No Apply to Univers e (LIDEX) 05-04 area(s) 2 ity of 0.05 % 00:00: 00:00 (two) [place] cream 00 :00 times Medical daily. Branch fluocinonid 2013-03 Yes [id number] Apply to Univers e (LIDEX) 1-05 affected ity of 0.05 % gel 00:00: area(s) 2 [place] 00 (two) Medical times Branch daily. SCALP BALD SPOT fluocinonid 2013-03 Yes [id number] Apply to Univers e (LIDEX) 1-05 affected ity of 0.05 % gel 00:00: area(s) 2 [place] 00 (two) Medical times Branch daily. SCALP BALD SPOT fluocinonid 2013-03 Yes [id number] Apply to Univers e (LIDEX) 1-05 affected ity of 0.05 % gel 00:00: area(s) 2 [place] 00 (two) Medical times Branch daily. SCALP BALD SPOT fluocinonid 2013-03- No [id number] Apply to Univers e (LIDEX) 1-05 - affected ity o f 0.05 % gel 00:00: 00:00 area(s) 2 [place] 00 :00 (two) Medical times Branch daily. SCALP BALD SPOT fluocinonid 2013-03- No [id number] Apply to Univers e (LIDEX) 1-05 - affected ity o f 0.05 % gel 00:00: 00:00 area(s) 2 [place] 00 :00 (two) Medical times Branch daily. SCALP BALD SPOT Advair HFA Advair HFA No Advair HFA [place] 230 mcg-21 230 mcg-21 230 mcg-21 da mcg/actuati mcg/actuati mcg/actuat Medical on aerosol on aerosol ion [place] up inhaler inhaler aerosol inhaler bumetanide bumetanide No bumetanide [place] 0.5 mg 0.5 mg 0.5 mg da tablet tablet tablet Medical Group Eucrisa 2 % Eucrisa 2 % No Eucrisa 2 [place] topical topical % topical da ointment ointment ointment Med ical Group fluocinolon fluocinolon No fluocinolo [place] e 0.01 % e 0.01 % ne 0.01 % da topical topical topical Medica l body oil body oil body oil [place] up fluticasone fluticasone No fluticason [place] propionate propionate e da 0.005 % 0.005 % propionate Med ical topical topical 0.005 % Group ointment ointment topical ointment ProAir HFA ProAir HFA No ProAir HFA [place] 90 90 90 da mcg/actuati mcg/actuati mcg/actuat Medical on aerosol on aerosol ion [place] up inhaler inhaler aerosol inhaler ProAir HFA ProAir HFA Yes [place] (Prior [facility] [place] Auth: Rx [facility] - Ref#:[id number] Memoria 40) l [facility] ent Clinics Advair HFA Advair HFA Yes [place] (Prior [facility] Auth: Rx [facility] - Ref#:[id number] Memoria 39) l [facility] ent Clinics Vital Signs Vital Name Observation Time Observation Value Comments Source Body weight 2021-05-04 21:58:00 98.884 kg [facility] BMI 2021-05-04 21:58:00 41.19 kg/m2 [facility] Systolic blood 2021-03-16 20:50:00 109 mm[Hg] [facility] pressure Medicine Diastolic blood 2021-03-16 20:50:00 66 mm[Hg] [facility] pressure Medicine Heart rate 2021-03-16 20:50:00 71 /min [facility] Body height 2021-03-16 20:50:00 154.9 cm [facility] Body weight 2021-03-16 20:50:00 97.07 kg [facility] BMI 2021-03-16 20:50:00 40.43 kg/m2 [facility] BP Diastolic 2021-02-21 00:00:00 66 mm[Hg] [facility] Height 2021-02-21 00:00:00 61 [in_i] [facility] BMI (Body Mass 2021-02-21 00:00:00 41.4 kg/m2 [facility] Medical Index) Group BP Systolic 2021-02-21 00:00:00 128 mm[Hg] [facility] Body Weight 2021-02-21 00:00:00 219 [lb_av] [facility] BP Diastolic 2021-01-17 00:00:00 68 mm[Hg] [facility] Height 2021-01-17 00:00:00 61 [in_i] [facility] BMI (Body Mass 2021-01-17 00:00:00 41.9 kg/m2 [facility] Medical Index) Group BP Systolic 2021-01-17 00:00:00 126 mm[Hg] [facility] Body Weight 2021-01-17 00:00:00 222 [lb_av] [facility] BP Diastolic 2020-12-27 00:00:00 66 mm[Hg] [facility] Height 2020-12-27 00:00:00 61 [in_i] [facility] BMI (Body Mass 2020-12-27 00:00:00 41.9 kg/m2 [facility] Medical Index) Group BP Systolic 2020-12-27 00:00:00 130 mm[Hg] [facility] Body Weight 2020-12-27 00:00:00 221.7 [lb_av] [facility] BP Diastolic 2020-11-15 00:00:00 68 mm[Hg] [facility] Height 2020-11-15 00:00:00 61 [in_i] [facility] BMI (Body Mass 2020-11-15 00:00:00 42.3 kg/m2 [facility] Medical Index) Group BP Systolic 2020-11-15 00:00:00 128 mm[Hg] [facility] Body Weight 2020-11-15 00:00:00 224 [lb_av] [facility] Systolic blood 2020-05-19 20:04:00 105 mm[Hg] [facility] Medicine Diastolic blood 2020-05-19 20:04:00 70 mm[Hg] [facility] Medicine Heart rate 2020-05-19 20:04:00 75 /min [facility] Body temperature 2020-05-19 20:04:00 36.56 Lauar [facility] Respiratory rate 2020-05-19 20:04:00 16 /min [facility] Body height 2020-05-19 20:04:00 154.9 cm [facility] Body weight 2020-05-19 20:04:00 90.719 kg [facility] BMI 2020-05-19 20:04:00 37.79 kg/m2 [facility] [place] [facility] Systolic blood 2020-05-19 20:04:00 105 mm[Hg] [facility] Medicine Diastolic blood 2020-05-19 20:04:00 70 mm[Hg] [facility] Medicine Heart rate 2020-05-19 20:04:00 75 /min [facility] Body temperature 2020-05-19 20:04:00 36.56 Laura [facility] Respiratory rate 2020-05-19 20:04:00 16 /min [facility] Body height 2020-05-19 20:04:00 154.9 [facility] Body weight 2020-05-19 20:04:00 90.719 kg [facility] BMI 2020-05-19 20:04:00 37.79 kg/m2 [facility] Procedures Procedure Date / Time Performing Source Performed Clinician XR CHEST 2 VIEWS 2020-11-09 [facility] - 12:20:00 [facility] ASSIGNMENT OF BENEFITS 2019-04-08 Doctor Haidermilo y of 15:59:44 Unassigned, No [place] Medical Name Branch Esophagogastroduodenoscopy (Surg) [facility] Laparoscopic Cholecystectomy [facility] Plan of Care Planned Activity [...] (2 - Td or Tdap)] Future Scheduled 2021-05-04 COVID-19 Vaccine (3 - [employer] Test 15:58:34 Booster for Pfizer of Medici ne series) [code = COVID-19 Vaccine (3 - Booster for Pfizer series)] Future Scheduled 2021-05-04 BMI FOLLOW UP PLAN [employer] Test 15:58:34 [code = BMI FOLLOW UP of Med icine PLAN] Future Scheduled 2021-05-04 TETANUS SHOT (ADULT) [facility] Test 15:58:34 [code = TETANUS SHOT of Medi cine (ADULT)] Future Scheduled 2021-05-04 Pneumococcal Combined [employer] Test 15:58:34 (1 of 4 - PCV13) [code of Me dicine = Pneumococcal Combined (1 of 4 - PCV13)] Future Scheduled 2021-05-04 HPV VACCINE (1 - 2-dose [facility] Test 15:58:34 series) [code = HPV of Medic ine VACCINE (1 - 2-dose series)] Future Scheduled 2021-05-04 Hepatitis C screening [employer] Test 15:58:34 (procedure) [code = of Medic ine 456760239] Future Scheduled 2021-05-04 [facility] 15:58:34 virus screening of Medicine (procedure) [code = 553365943] Future Scheduled 2021-05-04 Screening for malignant [facility] Test 15:58:34 neoplasm of cervix of Medici ne (procedure) [code = 019300372] Future Scheduled 2021-05-04 FLU VACCINE > 6 MONTHS [employer] Test 15:58:34 [code = FLU VACCINE > 6 of M edicine MONTHS] Future Scheduled 2021-03-22 Pneumococcal Combined [employer] Test 08:22:43 (1 of 4 - PCV13) [code of Me dicine = Pneumococcal Combined (1 of 4 - PCV13)] Future Scheduled 2021-03-22 HPV VACCINE (1 - 2-dose [facility] Test 08:22:43 series) [code = HPV of Medic ine VACCINE (1 - 2-dose series)] Future Scheduled 2021-03-22 Hepatitis C screening [employer] Test 08:22:43 (procedure) [code = of Medic ine 289823918] Future Scheduled 2021-03-22 [facility] 08:22:43 virus screening of Medicine (procedure) [code = 399963888] Future Scheduled 2021-03-22 Screening for malignant [facility] Test 08:22:43 neoplasm of cervix of Medici ne (procedure) [code = 976843345] Future Scheduled 2021-03-22 FLU VACCINE > 6 MONTHS [employer] Test 08:22:43 [code = FLU VACCINE > 6 of M edicine MONTHS] Future Scheduled 2021-03-22 COVID-19 Vaccine (2 - [employer] Test 08:22:43 Pfizer 2-dose series) of Med icine [code = COVID-19 Vaccine (2 - Pfizer 2-dose series)] Future Scheduled 2021-03-22 BMI FOLLOW UP PLAN [employer] Test 08:22:43 [code = BMI FOLLOW UP of Med icine PLAN] Future Scheduled 2021-03-22 TETANUS SHOT (ADULT) [employer] Test 08:22:43 [code = TETANUS SHOT of Medi cine (ADULT)] Future Scheduled 2021-03-16 CBC W/O DIFF W PLT Ordered: [facility] [employer] Test 15:02:34 [code = 6690-2] 03/16/2021 of Medicine Future Scheduled 2021-03-16 COMPREHENSIVE METABOLIC Ordered: [facility] Test 15:02:34 PANEL [code = 52122-8] 03/16/2021 of Me dicine Future Scheduled 2021-03-16 IRON, TIBC AND FERRITIN Ordered: [facility] Test 15:02:34 PANEL [code = NOCPT] 03/16/2021 of Medi cine Future Scheduled 2021-03-16 CALCIUM [code = Ordered: [facility] [employer] Test 15:02:34 65812-9] 03/16/2021 of Medicine Future Scheduled 2021-03-16 ALBUMIN [code = 1751-7] Ordered: [facility] [employer] Test 15:02:34 03/16/2021 of Medicine Future Scheduled 2021-03-16 LIPID PANEL [code = Ordered: [facility] or [employer] Test 15:02:34 55748-3] 03/16/2021 of Medicine Future Scheduled 2021-03-16 VITAMIN B1 [code = Ordered: [facility] [employer] Test 15:02:34 17842-6] 03/16/2021 of Medicine Future Scheduled 2021-03-16 VITAMIN B6 [code = Ordered: [facility] [employer] Test 15:02:34 26172-1] 03/16/2021 of Medicine Future Scheduled 2021-03-16 VITAMIN B12 [code = Ordered: [facility] or [employer] Test 15:02:34 2132-9] 03/16/2021 of Medicine Future Scheduled 2021-03-16 VITAMIN A [code = Ordered: [facility] [employer] Test 15:02:34 2923-1] 03/16/2021 of Medicine Future Scheduled 2021-03-16 VITAMIN D 1,25 Ordered: [facility] [employer] Test 15:02:34 DIHYDROXY [code = 03/16/2021 of Medicin e 1649-3] Future Scheduled 2021-03-16 FOLATE [code = 2284-8] [facility] [employer] Test 15:02:34 03/16/2021 of Medicine Future Scheduled 2021-03-16 HEMOGLOBIN A1C [code = Ordered: [facility] [employer] Test 15:02:34 4548-4] 03/16/2021 of Medicine Future Scheduled 2021-03-16 PROTIME-INR [code = Ordered: [facility] Test 15:02:34 5902-2] 03/16/2021 of Medicine Future Scheduled 2021-03-16 URINALYSIS AUTO W/SCOPE Ordered: [facility] Test 15:02:34 [code = 00718-8] 03/16/2021 of Medicine Future Scheduled 2020-11-23 INFLUENZA VACCINE (#1) C [...] SCREENING (12+)] Future Scheduled 2016-06-11 Screening for malignant [facility] - Test 00:00:00 neoplasm of cervix Medical C enter (procedure) [code = 379933385] Future Scheduled 2016-06-11 Screening for malignant [facility] - Test 00:00:00 neoplasm of cervix Medical C enter (procedure) [code = 303053235] Future Scheduled 2016-06-11 Screening for malignant [facility] - Test 00:00:00 neoplasm of cervix Medical C enter (procedure) [code = 333474691] Future Scheduled 2016-06-11 Screening for malignant [facility] - Test 00:00:00 neoplasm of cervix Medical C enter (procedure) [code = 685843086] Future Scheduled 2013-06-11 HEPATITIS C SCREENING CH [...] 2 - PPSV23)] Future Scheduled COVID-19 Vaccine [facility] Test Evaluation [code = of Medici ne COVID-19 Vaccine Evaluation] Future Scheduled HPV VACCINE (1 - 2-dose [facility] Test series) [code = HPV of Medic ine VACCINE (1 - 2-dose series)] Future Scheduled BMI FOLLOW UP PLAN [facility] Test [code = BMI FOLLOW UP of Med icine PLAN] Future Scheduled HEPATITIS C SCREENING [employer] Test [code = HEPATITIS C of Medic ine SCREENING] Future Scheduled HIV SCREENING [code = [facility] [place] Test HIV SCREENING] of Medicine Future Scheduled CERVICAL CANCER [facility] ollege Test SCREENING 3 YEAR FOLLOW of M edicine UP [code = CERVICAL CANCER SCREENING 3 YEAR FOLLOW UP] Future Scheduled FLU VACCINE > 6 MONTHS [employer] Test [code = FLU VACCINE > 6 of M edicine MONTHS] Future Scheduled TETANUS SHOT (ADULT) [facility] Test [code = TETANUS SHOT of Medi cine (ADULT)] Encounters Start End Encounter Admission Attending Care Care Encounter Source Date/Time Date/Time Type Type Clinicians Facility Department ID 2021-04-19 Outpatient MAINE Zaman [facility] [id number] 12:28:44 [place]cer[place] 84305 [facility] 2021-04-19 Outpatient MAINE Zaman [facility] [id number] 11:00:26 Ciera 09954 [facility] 2021-05-31 2021-05-31 Outpatient R [facility] [id number] -20 [facility] 10:30:00 10:30:00 [id number] [facility] 2021-05-04 2021-05-04 Office SHREYAS Watts [id number] [place] [address] 14:30:00 15:30:00 Visit Devorah AMBULATOR 350.1.13.21 College Y 0.2.7.2.686 of [id number] Medi camelia 810 e 2021-04-10 2021-04-10 [id number] 2021-03-22 2021-03-22 ambulatory [facility] [id number] [facility] 2021-03-22 2021-03-22 ambulatory [facility] [id number] [facility] 00[facility]00 [facility] Outpat[facility] ent Clinics 2021-03-16 2021-03-16 Office Hicks-Nba [facility] 1.2.840.114 [id number] [facility] 15:00:00 15:39:36 Visit es, Nai AMBULATOR 350.1.13.21 College G Y 0.2.7.2.686 [id number] [facility] 805 e 2021-02-21 2021-02-21 Outpatient IHDE_[place] [id number] [place] 04:27:00 04:27:00 [facility] 2021-02-21 2021-02-21 Outpatient IHDE_G MMG MMG [id number] 021 [place] 04:27:00 04:27:00 1201 [facility] 2021-02-21 2021-02-21 Joseph [facility] [place] - [id number] M atagor 00:00:00 00:00:00 Ajay Olguin MD: Medical Medica [address], [place] [address] , Ph. [phone] 2021-02-07 2021-02-07 Outpatient IHDE_G MMG MMG [id number] [place] 04:59:00 04:59:00 1116 [facility] 2021-01-23 2021-01-23 Outpatient IHDE_G MMG MMG [id number] [place] 10:25:00 10:25:00 1104 [facility] 2021-01-23 2021-01-23 Outpatient IHDE_G MMG MMG [id number] 021 [place] 10:25:00 10:25:00 [facility]5 [facility] 2021-01-17 2021-01-17 Outpatient IHDE_G MMG MMG [id number] [place] 04:59:00 04:59:00 1026 [facility] 2021-01-17 2021-01-17 Outpatient IHDE_G MMG MMG [id number] 021 [place] 04:59:00 04:59:00 1029 [facility] 2021-01-17 2021-01-17 Joseph [facility] [place] - [id number] M atagor 00:00:00 00:00:00 Ajay Olguin MD: Medical Medica [address], surgery [place] [address] , Ph. [phone] 2020-12-28 2020-12-28 Outpatient IHDE_G MMG MMG [id number] [place] 09:33:00 09:33:00 1018 [facility] 2020-12-27 2020-12-27 Outpatient IHDE_G MMG MMG [id number] 021 [place] 04:15:00 04:15:00 1005 [facility] 2020-12-27 2020-12-27 Joseph [facility] [place] - [id number] M atagor 00:00:00 00:00:00 Ajay Olguin MD: Medical Medica [address], [place] [address] , Ph. [phone] 2020-12-09 2020-12-09 Outpatient Joesph PLATT [facility] [id number] -20 [facility] 10:15:00 10:15:00 DAIANA [id number] ity [facility] 2020-11-16 2020-11-16 Outpatient IHDE_G MMG MMG [id number] 021 [place] 05:51:00 05:51:00 0827 [facility] 2020-11-15 2020-11-15 Outpatient IHDE_G MMG MMG [id number] 021 [place] 05:10:00 05:10:00 0824 [facility] 2020-11-15 2020-11-15 Outpatient IHDE_G MMG MMG [id number] 021 [place] 05:10:00 05:10:00 0825 Medical [facility] 2020-11-15 2020-11-15 Joseph MM [place] - [id number] M atagor 00:00:00 00:00:00 Ajay Olguin MD: Medical Medica sherley [address] [facility] [address], [place] [address] , Ph. [phone] 2020-11-10 2020-11-10 [facility] [id number] 021 [place] 12:12:00 12:12:00 0819 [facility] 2020-11-09 2020-11-09 [facility] [id number] 12:00:00 23:59:00 Encounter [facility] 2020-11-09 2020-11-[address] [facility] [id number] [facility] 12:36:38 14:54:20 Cara Medicin e 2020-11-09 2020-11-09 Outpatient [facility] [id number] SLE 00:00:00 00:00:00 2020-11-08 2020-11-[address] [facility] [id number] 00:00:00 00:00:00 Orders [facility] 2020-11-01 2020-11-01 Telephone [facility] [id number] Univers 00:00:00 00:00:00 Daiana MARTINEZ 350.1.13.10 ity of IALTY 4.2.7.2.686 [facility] [id number] [address] [facility] 2020-10-24 2020-10-24 Office [facility] 1.2.840.114 [id number] 10:18:55 10:48:54 Visit Daiana MARTINEZ 350.1.13.10 ity of [place]AL[place] 4.2.7.2.686 [facility] [id number] [facility] AND [address] DI[facility] 2020-10-24 2020-10-24 Outpatient Joesph PLATT [facility] [id number] Univers 10:30:00 10:30:00 DAIANA [id number] [facility] 2020-10-24 2020-10-24 Outpatient R LC [facility] [id number] Univers 10:30:00 10:30:00 DAIANA [facility] 2020-08-26 2020-08-26 Outpatient Joesph PLATT [facility] [id number] -20 [facility] 14:00:00 14:00:00 DAIANA [id number] [facility] 2020-08-02 2020-08-02 Telephone Arnel [facility] 1.2.840.114 [id number] Univers 00:00:00 00:00:00 [facility] 350.1.13.10 i ty of CLINICS [place]7.2.[place] [id number] [address] 2020-08-02 2020-08-02 Telephone Arnel [facility] 1.2.840.114 [id number] 00:00:00 00:00:00 [facility] 350.1.13.10 CLINICS 4.2.7.2.686 [id number] [facility] 2020-07-18 2020-07-18 Office Lc [facility] 1.2.840.114 [id number] Univers 10:54:04 11:57:47 Visit Daiana ROMEPEC 350.1.13.10 ity [facility] 4.2.7.2.686 [facility] s WACO [id number] [facility] AND [address] DI[facility]ET[facility] 2020-07-18 2020-07-18 Office Lc [facility] 1.2.840.114 [id number] 10:54:04 11:57:47 Visit Daiana ROMEPEC 350.1.13.10 IALTY 4.2.7.2.686 [place] [id number] [place] [address] [facility]ES CLINIC 2020-07-18 2020-07-18 Outpatient Joesph PLATT [facility] [id number] -20 [facility] 11:00:00 11:00:00 DAIANA 359436 [facility] 2020-07-18 2020-07-18 [facility] [id number] Univers 11:00:00 11:00:00 DAIANA devi of [facility] 2020-07-13 2020-07-[address] [facility] [id number] [facility] 00:00:00 00:00:00 Daiana Pink MULTISPEC 350.1.13.10 ity of [place] 4.2.7.2.686 [facility] s [place] [id number] [address] DIABETES [facility]INIC 2020-07-13 2020-07-[address] [facility] 1.2.049.301 [id number] 00:00:00 00:00:00 Daiana Pink MULTISPEC 350.1.13.10 IALTY 4.2.7.2.686 [place] [id number] [place] [address] [facility] 2020-05-19 2020-05-19 Office Divine Ibrahim BC 1.2.840.114 [id number] 13:48:40 16:45:35 Visit AMBULATOR 350.1.13.21 Y 0.2.7.2.686 [id number] [facility] 2020-05-19 2020-05-19 Office Divine Ibrahim BC 1.2.840.114 [id number] [facility] 13:48:40 16:45:35 Visit AMBULATOR 350.1.13.21 College Y 0.2.7.2.686 of [id number] [facility] 380 e 2020-05-19 2020-05-19 Office Mile Brown [facility] 1.2.840.11 [id number] [facility] 09:41:56 10:07:30 Visit Rigoberto Rg MULTISPEC 350.1.13.10 ity of [place]AL[place] 4.2.7.2.686 [facility] [id number] [facility] AND [address] DIABETES CLINIC 2020-05-19 2020-05-19 Outpatient R RIGOBERTO RG [facility] [id number] [facility] 09:45:00 09:45:00 ity of [facility] 2020-05-19 2020-05-19 Outpatient R [facility] [id number] -20 [facility] 09:30:00 09:30:00 [id number] ity of [facility] 2019-10-02 2019-10-02 [facility] [id number] 14:00:00 14:00:00 [facility] Medicine Outpati ent Clinics 2019-10-01 2019-10-01 [facility] [id number] 09:40:00 09:40:00 t [facility] Medicine Outpati ent Clinics 2019-09-28 2019-09-28 [facility] [id number] 14:29:00 14:29:00 [facility] Medicine Outpati ent Clinics 2019-06-22 2019-06-22 [facility] [id number] 11:00:00 11:00:00 [facility] Medicine Outpati ent Clinics 2019-06-19 2019-06-19 [facility] [id number] 14:01:00 14:01:00 [facility] Medicine Outpati ent Clinics 2019-04-08 2019-04-08 Office Viral Marie [facility] 1.2 .840.114 [id number] [facility] 10:00:07 10:10:07 Visit Ajay Ashton 350.1.1 3.10 ity of [place]AL[place] 4.2.7.2.686 [facility] [id number] [facility] AND [place] [address] DI[facility]ETES CLINIC 2019-04-08 2019-04-08 Orders Doctor CHRISTIAN 1.2.840.114 [id number] Univers 00:00:00 00:00:00 Only Unassigned, AZUCENA 350.1.13.10 ity of [place] [facility] 4.2.7.2.686 [facility] [id number] [place] [address] Branch 2019-04-07 2019-04-07 [facility] [id number] 11:00:00 11:00:00 [facility] Medicine Outpati ent Clinics Results Test Description Test Time Test Comments Results Result Comments Source Surgical pathology study 2021-01-06 10:00:00 Test Item Value Reference Range Interpretation Comme [facility] Surgical pathology study (test code = 82749-2) see emr pathology re port. [facility] W Auto Differential panel - [id number] 02:29:00 Test Item Value Reference Range Interpretation Comments white blood count (test code = 10.1 K/uL 4.0-11.5 white blood count) red blood count (test code = red 4.86 M/uL 3.80-5.20 blood count) hemoglobin (test code = 14.1 g/dL 10.5-15.7 hemoglobin) hematocrit (test code = 41.9 % 34.0-50.0 hematocrit) MCV [Entitic volume] (test code = 86.2 fL 86-100 20788-9) mean corpuscular hemoglobin (test 29.0 pg 26.2-33.4 [...] 44.4-80.1 leukocytes in Blood (test code = 96571-4) Immature granulocytes [#/volume] 0.0 K/uL 0.0-0.03 in Blood (test code = 66871-2) lymphocyte% (test code = 27.4 % 10.0-50.0 lymphocyte%) mono % (test code = mono %) 7.4 % 3.6-12.0 eos % (test code = eos %) 2.7 % 0.0-5.4 Basophils/100 leukocytes in 0.6 % 0.1-1.2 Unspecified specimen (test code = 97388-8) Band form neutrophils [#/volume] 6.26 K/uL 1.56-6.13 H in Blood (test code = 69050-6) Lymphocytes [#/volume] in 2.8 K/uL 1.18-3.74 Unspecified specimen by Automated count (test code = 89643-2) mono # (test code = mono #) 0.75 K/uL 0.24-0.86 eos # (test code = eos #) 0.27 K/uL 0.04-0.36 basophil # (test code = basophil 0.06 K/uL 0.01-0.08 #) NRBC% (test code = NRBC%) 0 /100 WBC 0-0.2 NRBC# (test code = NRBC#) 0 K/uL [facility] - Serum or Plasma [...] Serum or Plasma (test code = 6768-6) [facility] RNA [Presence] in Respiratory specimen by MARI with probe [id number] 02:15:5414904-3LvfzrduzdMerit Health RankinDifferential panel, method unspecified - [id number] 00:00:00 NeutrophilsBandLymphocyteAtypical LymphMonocyteEosinophilBasophilMetamyelocyteMyelocytePromyelocyteBlastsNucleated Red Blood CellAbs Neutrophil Count (Man)Abs Lymph Count (Man)Abs Monocyte Count (Man)Abs Eosinophil Count (Man)Abs Basophil Count (Man)Platelet EstimatePlatelet MorphologyPolychromasiaMacrocytosisHypersegmented Polys [facility] Hospital[facility]hori[facility]adotrop[facility] ( test) [Presence] in Serum or [id number] 00:00:00 Test Item Value Reference Range Interpretation Comments Choriogonadotropin.beta subunit negative neg ( test) [Presence] in Serum or Plasma (test code = 2110-5) [facility], 2 [id number] 13:30:00Reason for Exam:- >Severe persistent asthma without complication [facility] 1995 Sex: FFINAL [...] pneumonia or pulm onary edema. Signed: Yvette Nguyen Verified Date/Time: 11/09/2020 13:30:42 Chest 2 [id number] 13:30:00Interface, External Ris In - 11/09/2020 1:32 [...] pneumonia or pulmonary edema. Signed: Yvette Nguyen MDRmoisésort Verified Date/Time: 11/09/2020 13:30:42 [facility]
[2021-05-08 19:19] LABS: SARS-COV-2 RT PCR NEGATIVE (NEGATIVE)
--- NOTE | 2021-05-08 19:21 | ER ---
Nurse's Notes [facility] Name: Deric Barry Age: 25 yrs Sex: Female : 1995 Arrival Date: 05/08/2021 Time: 17:24 Bed 20 Private MD: Ciera Fried Diagnosis: Viral infection, unspecified Presentation: 05/08 17:34 Chief complaint: Patient states: Cough, body aches, RITCHIE, CP/back pain for 1 day. + ll1 fatigue. Coronavirus screen: Vaccine status: Patient reports receiving the 2nd dose of the covid vaccine. Client denies travel out of the [place] in the last 14 days. cough unrelated to allergies, difficulty breathing, fatigue, fever, headache, muscle pain, shortness of breath, Client presents with at least one sign or symptom that may indicate coronavirus-19. Standard/surgical mask placed on the client. Ebola Screen: Patient denies travel to an Ebola-affected area in the 21 days before illness onset. Initial Sepsis Screen: Does the patient meet any 2 criteria? HR > 90 bpm. No. Patient's initial sepsis screen is negative. Does the patient have a suspected source of infection? Yes: Productive cough/pneumonia. Risk Assessment: Do you want to hurt yourself or someone else? Patient reports no desire to harm self or others. Onset of symptoms was May 08, 2021. 17:34 Method Of Arrival: Ambulatory ll1 17:34 Acuity: DOLLY 4 ll1 Historical: - Allergies: 17:35 Spiriva with HandiHaler; ll1 17:35 Peanut; ll1 - PMHx: 17:35 Asthma; "severe"; PA with VSD; ll1 - PSHx: 17:35 pulmonary valve replacement, bovine; x 5; Cholecystectomy; ll1 - Immunization history:: Client reports receiving the 2nd dose of the Covid vaccine, Flu vaccine is not up to date. - Social history:: Smoking status: Patient denies any tobacco usage or history of. Assessment: 19:36 Reassessment: No changes from previously documented assessment. Patient is alert, tk1 oriented x 3, equal unlabored respirations, skin warm/dry/pink. Respiratory: Airway is patent Trachea midline Respiratory effort is even, unlabored, Respiratory pattern is regular, symmetrical. 19:36 Reassessment: D/C per MD order. Discharge instructions given to patient. Verbalized tk1 understanding. Vital Signs: 17:34 BP 118 / 65; Pulse 96; Resp 17; Temp 99.4; Pulse Ox 99% ; Weight 98.43 kg; Height 5 ft. ll1 1 in. (154.94 cm); Pain 9/10; 17:34 Body Mass Index 41.00 (98.43 kg, 154.94 cm) ll1 ED Course: 17:24 Patient arrived in ED. as 17:25 Ciera Fried is Private Physician. as 17:35 Triage completed. ll1 17:36 Arm band placed on Patient placed in an exam room, on a stretcher. ll1 17:43 Ezra Caal PA is PHCP. jr8 17:43 Washington Nelson MD is Attending Physician. jr8 18:10 COVID-19/FLU A+B (Document "Date of Onset" if Symptomatic) Sent. ritchie 19:21 Ciera Fried is Referral Physician. jr8 19:36 Mecca Christian is Primary Nurse. tk1 Administered Medications: No medications were administered Outcome: 19:21 Discharge ordered by MD. jr8 19:48 Condition: stable tk1 19:48 Discharge instructions given to patient, Instructed on discharge instructions, follow up and referral plans. medication usage, Demonstrated understanding of instructions, follow-up care, medications, Prescriptions given X 3. 19:49 Patient left the ED. tk1 Signatures: Carol Chavez Josh, PA PA jr8 Luis Carlos Blake RN RN [facility] Gill Ramirez RN WILL Mecca Christian tk1
--- NOTE | 2021-05-08 19:22 | EDPHYS ---
Physician Documentation [facility] Name: Deric Barry Age: 25 yrs Sex: Female : 1995 Arrival Date: 05/08/2021 Time: 17:24 Bed 20 Private MD: Ciera Fried ED Physician Washington Nelson HPI: 05/08 18:11 This 25 yrs old Female presents to ER via Ambulatory with complaints of Cough, jr8 Headache, Chest Pain, Pain All Over. 18:11 Severity of symptoms: At their worst the symptoms were moderate, in the emergency jr8 department the symptoms are unchanged. Modifying factors: The symptoms are alleviated by nothing, the symptoms are aggravated by nothing. The patient has not experienced similar symptoms in the past. The patient has not recently seen a physician. Historical: - Allergies: 17:35 Spiriva with HandiHaler; ll1 17:35 Peanut; ll1 - PMHx: 17:35 Asthma; "severe"; PA with VSD; ll1 - PSHx: 17:35 pulmonary valve replacement, bovine; x 5; Cholecystectomy; ll1 - Immunization history:: Client reports receiving the 2nd dose of the Covid vaccine, Flu vaccine is not up to date. - Social history:: Smoking status: Patient denies any tobacco usage or history of. ROS: 18:11 Constitutional: Positive for body aches, chills. jr8 18:11 Cardiovascular: Positive for chest pain, Negative for edema, orthopnea, palpitations, paroxysmal nocturnal dyspnea. 18:11 Respiratory: Positive for cough. 18:11 Neuro: Positive for headache. 18:11 All other systems are negative. Exam: 18:11 Constitutional: This is a well developed, well nourished patient who is awake, alert, jr8 and in no acute distress. Eyes: Pupils equal round and reactive to light, extra-ocular motions intact. Lids and lashes normal. Conjunctiva and sclera are non-icteric and not injected. Cornea within normal limits. Periorbital areas with no swelling, redness, or edema. ENT: Nares patent. No nasal discharge, no septal abnormalities noted. Tympanic membranes are normal and external auditory canals are clear. Oropharynx with no redness, swelling, or masses, exudates, or evidence of obstruction, uvula midline. Mucous membranes moist. Neck: Trachea midline, no thyromegaly or masses palpated, and no cervical lymphadenopathy. Supple, full range of motion without nuchal rigidity, or vertebral point tenderness. No Meningismus. Chest/axilla: Old surgical scall present mid sternal. Normal wall motion. Nontender with no deformity. No lesions are appreciated. Cardiovascular: Regular rate and rhythm with a normal S1 and S2. No gallops. Systolic murmer present over the 3rd intercostal space left sternal border. Normal PMI, no JVD. No pulse deficits. Respiratory: Lungs have equal breath sounds bilaterally, clear to auscultation and percussion. No rales, rhonchi or wheezes noted. No increased work of breathing, no retractions or nasal flaring. Abdomen/GI: Soft, non-tender, with normal bowel sounds. No distension or tympany. No guarding or rebound. No evidence of tenderness throughout. Back: No spinal tenderness. No costovertebral tenderness. Full range of motion. Skin: Warm, dry with normal turgor. Normal color with no rashes, no lesions, and no evidence of cellulitis. MS/ Extremity: Pulses equal, no cyanosis. Neurovascular intact. Full, normal range of motion. Neuro: Awake and alert, GCS 15, oriented to person, place, time, and situation. Cranial nerves II-XII grossly intact. Motor strength 5/5 in all extremities. Sensory grossly intact. Cerebellar exam normal. Normal gait. Vital Signs: 17:34 BP 118 / 65; Pulse 96; Resp 17; Temp 99.4; Pulse Ox 99% ; Weight 98.43 kg; Height 5 ft. ll1 1 in. (154.94 cm); Pain 9/10; 17:34 Body Mass Index 41.00 (98.43 kg, 154.94 cm) ll1 MDM: 17:43 Patient medically screened. jr8 19:21 Data reviewed: vital signs, nurses notes, lab test result(s). Data interpreted: Pulse jr8 oximetry: on room air is 99 %. Interpretation: normal. Counseling: I had a detailed discussion with the patient and/or guardian regarding: the historical points, exam findings, and any diagnostic results supporting the discharge/admit diagnosis, lab results, the need for outpatient follow up, a family practitioner, to return to the emergency department if symptoms worsen or persist or if there are any questions or concerns that arise at home. 05/08 17:54 Order name: COVID-19/FLU A+B (Document "Date of Onset" if Symptomatic); Complete Time: jr8 19:20 Administered Medications: No medications were administered Disposition: 05/09 07:27 Co-signature as Attending Physician, Washington Nelson MD. rn Disposition Summary: 05/08/21 19:21 Discharge Ordered Location: Home jr8 Problem: new jr8 Symptoms: have improved jr8 Condition: Stable jr8 Diagnosis - Viral infection, unspecified jr8 Followup: jr8 - With: Ciera Fried - When: 5 - 6 days - Reason: Recheck today's complaints, Continuance of care, Re-evaluation by your physician Discharge Instructions: - Discharge Summary Sheet jr8 - Viral Respiratory Infection jr8 Forms: - Medication Reconciliation Form jr8 - Thank You Letter jr8 - Antibiotic Education jr8 - Prescription Opioid Use jr8 Prescriptions: - promethazine-DM 6.25-15 mg/5 mL Oral syrup - take 5 milliliter by ORAL route every 4-6 hours As needed as needed, not to jr8 exceed 30 mL in 24 hours; 100 milliliter; Refills: 0, Product Selection Permitted - Prednisone 20 mg Oral Tablet - take 1 tablet by ORAL route once daily for 5 days; 5 tablet; Refills: 0, jr8 Product Selection Permitted - Zithromax Z-Nadeem 250 mg Oral Tablet - take 1 tablet by ORAL route as directed for 5 days Day 1 - take two (2) tablets jr8 one time. Day 2, 3, 4 , 5 take one (1) tablet once daily.; 6 tablet; Refills: 0, Product Selection Permitted Signatures: Dispatcher [employer] EDWashington Blake MD MD rn Roszak, Josh, PA PA jr8 Luis Carlos Blake RN RN ll1
[2021-05-08 20:32] VITALS: BP 118/65; TEMP 99.4; O2SAT 99
== END 2021-05-08 19:49 | disposition home or self-care (01) ==
LOC: ER 17:23
DX: B34.9 Viral infection, unspecified (principal); Z20.822 Contact with and (suspected) exposure to COVID-19; Z88.8 Allergy status to other drugs, medicaments and biological substances; Z91.010 Allergy to peanuts
CPT/HCPCS: 0240U; 99283

== ENCOUNTER 2022-02-28 17:09 | Emergency (ER) | payer OTHER ==
--- OUTSIDE RECORDS SUMMARY | 2022-02-28 17:16 | XMS REPORT | Continuity of Care Document ---
:1995 Author Organization [facility] t Address [address] [place] [address] Care Team Providers Name Role Phone SELVIN JAVED Primary Care Physician Unavailable Nithya Zaman Attending Clinician Unavailable ALYSE DE LEON Attending Clinician Unavailable ALYSE DE LEON Attending Clinician Unavailable AMADEO ISAACS Attending Clinician Unavailable CHRISTIAN VALDEZ Attending Clinician Unavailable SANTIAGO AMEZCUA Attending Clinician Unavailable Jose CHAPMAN, Santiago Jones Attending Clinician SANTIAGO AMEZCUA Attending Clinician Unavailpaula Holland MD, Blanca Sands Attending Clinician [phone] Tatiana ACCOUNTS PAYABLE ADMINISTRATOR, Christian Bennett Attending Clinician Jose CHAPMAN, Santiago Grey Attending Clinician [phone] Deya MILLER, Erin Attending Clinician Fernandez SAMUEL, Natalia Peoples Attending Clinician NATALIA TABOR Attending Clinician Unavailable AHMET ORTIZ Attending Clinician Unavailable ERIN FALK Attending Clinician Unavailable NITO Attending Clinician Unavailable DEMARCUS ALONSO Attending Clinician Unavailable Spike CHAPMAN, Kirti Attending Clinician Demarcus Alonso MD Attending Clinician Addy Bruce MD Attending Clinician AMADEO ISAACS Attending Clinician Unavailable Salvador Davison MD, Amadeo Reyes Attending Clinician [phone] IVORY OLMOS Attending Clinician Unavailable Lucy BAGGAGE SCREENER, PERFORMANCE IMPROVEMENT CONSULTANT, Erin Oreilly Attending Clinician Unavailable GENEVIEVE SYKES Attending Clinician Unavailable IHDE_G Attending Clinician Unavailable Brando Ibrahim MD Attending Clinician BRANDO IBRAHIM Attending Clinician Unavailable BRANDO IBRAHIM Attending Clinician Unavailable ADDY BRUCE Attending Clinician Unavailable Pedro Seals MD Attending Clinician Brando Ibrahim MD Attending Clinician Mile Brown MD Attending Clinician Josi Rg MD Attending Clinician JOSI RG Attending Clinician Unavailable Viral Marie MD Attending Clinician [phone] Doctor Unassigned, [place] Attending Clinician Unavailable SANITAGO AMEZCUA Admitting Clinician Unavailpaula BEAUCHAMP Admitting Clinician Unavailable IHDE_G Admitting Clinician Unavailable Payers Payer Name Policy Type Policy Number Effective Date Expiration Date Shante ernst [facility] [id number] 2019 [facility] 00:00:00 PLAN [facility]-MEDICAID - [id number] 2016 2016 MEDICAID 00:00:00 00:00:00 [facility] [id number] 2015 [facility] 00:00:00 (MEDICAID HMO) Problems Condition Condition Condition Status Onset Resolution Last Treating Co mments Source Name Details Category Date Date Treatment Clinician Date S/P S/P Disease Active 2021-03 Overview: [facility] laparoscop laparoscop 04-21 [facility] ic sleeve ic sleeve 00:00: g of this o f gastrectom gastrectom 00 note Me dicin y 01/29/22 y 01/29/22 might be e different from the original. 01/29/22 Morbid Morbid Disease Active 2021-[address] [facility] Encounter Encounter Disease Active 2021-[address] [facility]31 [facility] gastric gastric 00:00: Medical sleeve sleeve 00 Center procedure procedure Asthma Asthma Problem Active [facility] 8-24 da 00:00: Medical 00 Group Repair of Repair of Problem Active [facility] ventricula Ventricula 824 da r septal r Septal 00:00: Medica l defect Defect 00 Group with with prosthesis Prosthesis Repair of Repair of Problem Active [facility] pulmonary Pulmonary 8 da atresia Atresia 00:00: Medical 00 Group Irritable Irritable Disease Active [facility] [place] bowel bowel 04-24 [place] syndrome syndrome 00:00: of with with 00 Medicin constipati constipati e on on Obesity Obesity Disease Active [facility] 10-12 [facility] 00:00: t & Plan: of 00 Formattin Medicin g of this e note might be different from the original. Advised weight loss , healthy diet and exercise , pt will follow up with contract negotiator [facility] Environmen Disease Active 2012-03 B shawn mazariegos 05-03 [place] allergies allergies 00:00: of 00 Medicin e Asthma Asthma Disease Active 2012-03 [facility] 05-03 [facility] 00:00: t & Plan: of 00 Formattin Medicin g of this e note might be different from the original. Doing well post partumEnc ouraged to cont inhaler useInhale r tech demonstra tedProvid ed refills and PFM SARAH SARAH Disease Active 2012-03 Last [facility] (obstructi (obstructi 2-09 [facility] ve sleep ve sleep 00:00: t & Plan: of apnea) apnea) 00 Formattin Medicin g of this e note might be different from the original. Received her air sense 11 machine in [place] good subjectiv e complianc e, still adjusting We do not have remote access, cannot get a download. Will try to get remote access, if we cannot have it, patient will need to bring her machine.P atparam is getting the benefit of the machine.R ecommenda tions:-c/ w Auto CPAP-equi pment download- weight loss-regu lar exercise- will follow up within 2 months for complianc e.-Mainta in postopera tive SARAH patients in the upright or semi-upri ght position, if not contraind icated by the surgical procedure . The lateral position is an alternati ve.-avoid or minimize the postopera tive use of opioids-P teetee was instructe d to bring the CPAP machine to the hospital for continuat ion in the postopera tive period to facilitat e use.-PAP should be in place whenever the patient is in bed since postopera tive patients often sleep during the day.-Cont inued monitorin g of oxygen and ventilati on in the postopera tive period.Sh e may proceed with surgery with no additiona l sleep medicine testing or procedure s Atopic Atopic Disease Active Overview: [facility] s dermatitis dermatitis 5-10 Formattin ity of and and 00:00: g of this [place] related related 00 note Medical condition condition might be Br anch different from the original. EczemaICD 10 Diagnosis Term Senior Sales Operations Analyst Utility Asthma Asthma Disease Active Overview: Univer s 5-10 Formattin ity of 00:00: g of this [place] 00 note Medical might be Branch different from the original. ICD10 Diagnosis Term Senior Sales Operations Analyst Utility Other Other Disease Active Univers allergy, [...] different from the original. 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 Diagnosis Term Senior Sales Operations Analyst Utility Uncomplica Uncomplica Problem Active C ommon jose a asthma jose a asthma Sp katarzyna [facility] [id number] Depression Problem Active Co mmon with [facility] anxiety [facility] [id number] Dry cough Problem Active Comm on [facility] Allergic Seasonal Problem Active Commo n rhinitis and [facility] perennial [facility] allergic [facility] Heart Heart Problem Active Common disease disease [facility] Constipati Constipati Problem Active C ommon on on [facility] [id number] Congestion Problem Active Com mon of nasal [facility] sinus [facility] Allergies, Adverse Reactions, Alerts Allergy Allergy Status Severity Reaction(s) Onset Inactive Treating Comm ents Source Name Type Date Date Clinician TIOTROPI Allergy Active Low Itching 2013-[address] [facility] 0-03 [facility] Center Tiotropi Propensi Active Itching 2013-03 [facility] ty to [place] adverse 00:00: of reaction 00 Medicin s to e drug Tiotropi Drug Active Itching 2013-[address] [facility] [address] um Allergy 0-03 [facility] 00:[facility]: [facility] 00 Center Spiriva Propensi Active Hives [facility] Handihal ty to 09-30 [place] er adverse 00:00: of reaction 00 Medicin s to e drug NO KNOWN Drug Active [facility] ALLERGIE Class ity of S [facility] Spiriva Allergy Active [place] with to da Handihal substanc Medica l er e Group Social History Social Habit Start Date Stop Date Quantity Comments Source History of Common Spirit - Tobacco Use [facility] History SDOH [facility] Alcohol Std Medical Cente r Drinks History SDOH [facility] Alcohol Binge Medical [place] [facility] History SDOH [facility] Alcohol Comment Medical C enter History SDOH [facility] Transport [facility] Exposure to 2022-01-22 2022-02-01 Not sure University SARS-CoV-2 00:00:00 09:45:00 [place] Medical (event) Branch Alcohol intake 2022-01-29 2022-01-[address] [facility] 00:00:00 00:00:00 non-drinker Medical Cente r (finding) History [facility] 2022-01-29 2022-01-[address] [facility] Transport Med 00:00:00 00:00:[address] History [facility] 2022-01-29 2022-01-[address] [facility] Housing Unable to 00:00:00 00:00:00 Medical Center Pay History [facility] 2022-01-29 2022-01-[address] [facility] Housing Places 00:00:00 00:00:00 Medical Ce nter Lived History [facility] 2022-01-29 2022-01-[address] [facility] Housing Homeless 00:00:00 00:00:00 Medical Center Last Year Tobacco use and 2022-01-19 2022-01-[address] [facility] exposure 00:00:00 00:00:00 Medical Center History [facility] 2022-01-19 2022-01-[address] [facility] Alcohol Frequency 00:00:00 00:00:00 Medical Center Sex Assigned At [address] [facility] 00:00:00 00:00:00 [facility] Center Smoking Status Start Date Stop Date Source Never smoker [facility] Center Medications Ordered Filled Start Stop Current Ordering Indication Dosage Frequency Signature Comments Components Source Medication Medication Date Date Medication? Clinician (SIG) Name Name Fluocinolon 2021-03 Yes [place] e Acetonide 1-22 the/FS Colleg e Body 0.01 % 16:28: Body Oil of OIL 36 0.01 % Medicin e Multiple 2021-03 Yes 1{tbl} Take 1 [facility] 1-22 Tablet by Col lege nerals 16:28: mouth of (MULTI-DEVIN 36 daily. Medici n MIN Adina e GUMMIES) Vitamins CHEW Fluocinolon 2021-03 Yes [place] e Acetonide 1-22 the/FS Colleg e Body 0.01 % 16:28: Body Oil of OIL 36 0.01 % Medicin e Multiple 2021-03 Yes 1{tbl} Take 1 [facility] 1-22 Tablet by Col lege nerals 16:28: mouth of (MULTI-DEVIN 36 daily. Medici n MIN Adina e GUMMIES) Vitamins CHEW bumetanide 2021-03 Yes 1mg QD Take [address] (BUMEX) 1 1-08 by mouth [facility] MG tablet 18:50: daily. Medica l 05 [place] fluticasone 2021-03 Yes 2{puff} Q.5D Inhale [address] propion-jena 1-08 puffs by Luke s meteroL 18:50: mouth via Medic al (ADVAIR 05 inhaler 2 Center HFA) 230-21 (two) mcg/actuati times on inhaler daily. albuterol 2021-03 Yes 1{puff} Inhale [address] HFA 1-08 puff by [facility] (VENTOLIN 18:50: mouth via Med ical HFA) 90 05 inhaler Center mcg/actuati every 6 on inhaler (six) hours as needed for Wheezing. linaCLOtide 2021-03 Yes 145ug QD Take [address] (Linzess) 1-08 mcg by [facility] 145 mcg Cap 18:50: mouth Medic al 05 daily. Center bumetanide 2021-03 Yes 1mg QD Take [address] (BUMEX) 1 1-08 by mouth [facility] MG tablet 18:50: daily. Medica l 05 [place] fluticasone 2021-03 Yes 2{puff} Q.5D Inhale [address] propion-jena 1-08 puffs by Luke s meteroL 18:50: mouth via Medic al (ADVAIR 05 inhaler 2 Center HFA) 230-21 (two) mcg/actuati times on inhaler daily. albuterol 2021-03 Yes 1{puff} Inhale [address] HFA 1-08 puff by [facility] (VENTOLIN 18:50: mouth via Med ical HFA) 90 05 inhaler Center mcg/actuati every 6 on inhaler (six) hours as needed for Wheezing. linaCLOtide 2021-03 Yes 145ug QD Take [address] (Linzess) 1-08 mcg by [facility] 145 mcg Cap 18:50: mouth Medic al 05 daily. [place] bumetanide 2021-03 Yes 1mg QD Take [address] (BUMEX) 1 1-08 by mouth [facility] MG tablet 18:50: daily. Medica l 05 [place] fluticasone 2021-03 Yes 2{puff} Q.5D Inhale [address] propion-jena 1-08 puffs by Luke s meteroL 18:50: mouth via Medic al (ADVAIR 05 inhaler 2 [place] HFA) 230-21 (two) mcg/actuati times on inhaler daily. albuterol 2021-03 Yes 1{puff} Inhale [address] HFA 1-08 puff by [facility] (VENTOLIN 18:50: mouth via Med ical HFA) 90 05 inhaler Center mcg/actuati every 6 on inhaler (six) hours as needed for Wheezing. linaCLOtide 2021-03 Yes 145ug QD Take [address] (Linzess) 1-08 mcg by [facility] 145 mcg Cap 18:50: mouth Medic al 05 daily. [place] bumetanide 2021-03 Yes 1mg QD Take [address] (BUMEX) 1 1-08 by mouth [facility] MG tablet 18:50: daily. Medica l 05 [place] fluticasone 2021-03 Yes 2{puff} Q.5D Inhale [address] propion-jena 1-08 puffs by Luke s meteroL 18:50: mouth via Medic al (ADVAIR 05 inhaler 2 [place] HFA) 230-21 (two) mcg/actuati times on inhaler daily. albuterol 2021-03 Yes 1{puff} Inhale [address] HFA 1-08 puff by [facility] (VENTOLIN 18:50: mouth via Med ical HFA) 90 05 inhaler Center mcg/actuati every 6 on inhaler (six) hours as needed for Wheezing. linaCLOtide 2021-03 Yes 145ug QD Take [address] (Linzess) 1-08 mcg by [facility] 145 mcg Cap 18:50: mouth Medic al 05 daily. [place] ondansetron 2021-03- 4mg Take [address] [facility] (ZOFRAN) 4 1-08 11-08 by mouth 2 [facility] MG tablet 16:27: 00:00 (two) Medica l 03 :00 times Center daily as needed for Nausea. ondansetron 2021-03 No 4mg Take [address] [facility] (ZOFRAN) 4 -08 by mouth 2 [facility] MG tablet 16:27: 00:00 (two) Medica l 03 :00 times Center daily as needed for Nausea. ondansetron 2021-03 No 4mg Take [address] [facility] (ZOFRAN) 4 -08 by mouth 2 [facility] MG tablet 16:27: 00:00 (two) Medica l 03 :00 times Center daily as needed for Nausea. ondansetron 2021-03 No 4mg Take [address] (ZOFRAN) 4 -01-30 by mouth 2 [facility] MG tablet 16:27: 00:00 (two) Medica l 03 :00 times Center daily as needed for Nausea. ondansetron 2021-03 Yes 4mg Take [address] [facility] (ZOFRAN) 4 1-08 tablet (4 Luke s MG tablet 00:00: mg total) Med ical 00 by mouth Center every 6 (six) hours as needed for Nausea. ondansetron 2021-03 Yes 4mg Take [address] [facility] (ZOFRAN) 4 1-08 tablet (4 Luke s MG tablet 00:00: mg total) Med ical 00 by mouth Center every 6 (six) hours as needed for Nausea. ondansetron 2021-03 Yes 4mg Take [address] [facility] [address] (ZOFRAN) 4 1-08 tablet (4 Luke s MG tablet 00:00: mg total) Med ical 00 by mouth Center every 6 (six) hours as needed for Nausea. ondansetron 2021-03 Yes 4mg Take 4 mg [facility] (ZOFRAN) 4 1-08 by mouth. [facility] e[facility] MG tablet 00:00: of 00 Medicin e ondansetron 2021-03 Yes 4mg Take 4 mg [facility] (ZOFRAN) 4 1-08 by mouth. [facility]ell ege MG tablet 00:00: of 00 Medicin e ondansetron 2021-03 Yes 4mg Take [address] [facility] (ZOFRAN) 4 1-08 tablet (4 Luke s MG tablet 00:00: mg total) Med ical 00 by mouth Center every 6 (six) hours as needed for Nausea. ondansetron 2021-03- No 4mg Take [address] [facility] (ZOFRAN) 4 04-01-15 tablet (4 [facility] MG tablet 00:00: 23:59 mg total) Me dical 00 :00 by mouth Center every 6 (six) hours as needed for Nausea for up to 7 days. ondansetron 2021-03- No 4mg Take [address] [facility] (ZOFRAN) 4 04-01-15 tablet (4 [facility] MG tablet 00:00: 23:59 mg total) Me dical 00 :00 by mouth Center every 6 (six) hours as needed for Nausea for up to 7 days. ondansetron 2021-03- No 4mg Take [address] [facility] (ZOFRAN) 4 04-01-15 tablet (4 [facility] MG tablet 00:00: 23:59 mg total) Me dical 00 :00 by mouth Center every 6 (six) hours as needed for Nausea for up to 7 days. ondansetron 2021-03- No 4mg Take [address] [facility] (ZOFRAN) 4 04-01-15 tablet (4 [facility] MG tablet 00:00: 23:59 mg total) Me dical 00 :00 by mouth Center every 6 (six) hours as needed for Nausea for up to 7 days. ondansetron 2021-03- No 4mg Take [address] [facility] (ZOFRAN) 4 04-01- tablet (4 [facility] MG tablet 00:00: 00:00 mg total) Me dical 00 :00 by mouth Center every 6 (six) hours as needed for Nausea for up to 7 days. ondansetron 2021-03- No 4mg Take [address] [facility] (ZOFRAN) 4 04-01-08 tablet (4 [facility] MG tablet 00:00: 00:00 mg total) Me dical 00 :00 by mouth Center every 6 (six) hours as needed for Nausea. ondansetron 2021-03- No 4mg Take [address] [facility] (ZOFRAN) 4 04-01-08 tablet (4 [facility] MG tablet 00:00: 00:00 mg total) Me dical 00 :00 by mouth Center every 6 (six) hours as needed for Nausea for up to 7 days. ondansetron 2021-03- No 4mg Take [address] [facility] (ZOFRAN) 4 04-01 tablet (4 [facility] MG tablet 00:00: 00:00 mg total) Me dical 00 :00 by mouth Center every 6 (six) hours as needed for Nausea. ondansetron 2021-03- No 4mg Take [address] [facility] (ZOFRAN) 4 04-01 tablet (4 [facility] MG tablet 00:00: 00:00 mg total) Me dical 00 :00 by mouth Center every 6 (six) hours as needed for Nausea for up to 7 days. ondansetron 2021-03- No 4mg Take [address] [facility] (ZOFRAN) 4 04-01 tablet (4 [facility] MG tablet 00:00: 00:00 mg total) Me dical 00 :00 by mouth Center every 6 (six) hours as needed for Nausea. ondansetron 2021-03- No 4mg Take [address] [facility] (ZOFRAN) 4 04-01 tablet (4 [facility] MG tablet 00:00: 00:00 mg total) Me dical 00 :00 by mouth Center every 6 (six) hours as needed for Nausea for up to 7 days. ondansetron 2021-03- No 4mg Take [address] [facility] (ZOFRAN) 4 04-01 tablet (4 [facility] MG tablet 00:00: 00:00 mg total) Me dical 00 :00 by mouth Center every 6 (six) hours as needed for Nausea. bumetanide 2021-03 Yes 1mg QD Take [address] (BUMEX) 1 07 by mouth [facility] MG tablet 13:41: daily. Medica l 13 Center fluticasone 2021-03 Yes 2{puff} Q.5D Inhale [address] propion-jena - puffs by Luke s meteroL 13:41: mouth via Medic al (ADVAIR 13 inhaler 2 Center HFA) 230-21 (two) mcg/actuati times on inhaler daily. linaCLOtide 2021-03 Yes 145ug QD Take [address] ([place]) 1-07 mcg by [facility] 145 mcg Cap 13:41: mouth Medic al 13 daily. Center ondansetron 2021-03 Yes 4mg Take [address] (ZOFRAN) 4 1-07 by mouth 2 [facility] MG tablet 13:41: (two) Medical 13 times Center daily as needed for Nausea. albuterol 2021-03 Yes 1{puff} Inhale [address] HFA 1-07 puff by [place] (VENTOLIN 12:45: mouth via Med ical HFA) 90 28 inhaler Center mcg/actuati every 6 on inhaler (six) hours as needed for Wheezing. Fluocinolon 2021-03 Yes [place] e Acetonide 0-27 the/FS Colleg e Body 0.01 % 14:26: Body Oil of OIL 10 0.01 % Medicin e Multiple 2021-03 Yes 1{tbl} Take 1 [facility] 0-27 Tablet by Col crawley nerals 14:26: mouth of (MULTI-DEVIN 10 daily. Medici n MIN Adina e GUMMIES) Vitamins CHEW Fluticasone 2021-03- Advair HFA [facility] -Salmeterol 0-27 10-27 230 mcg-21 C ollege 230-21 14:25: 00:00 mcg/actuat of MCG/ACT 56 :00 ion Medicin AERO aerosol e inhaler docusate 2021-03 Yes 100mg Take 1 [place] sodium 0-27 capsule by [place] (COLACE) 00:00: mouth two of 100 MG 00 times Medicin capsule daily. e cyclobenzap 2021-03 Yes 10mg Take 1 [facility] rine 0-27 Tablet by [place] (FLEXERIL) 00:00: mouth 3 of 10 MG 00 times Medicin tablet daily as e needed for Muscle spasms. ondansetron 2021-03 Yes 4mg Take 1 [facility] (ZOFRAN-ODT 0-27 Tablet by legyashira ) 4 mg 00:00: mouth of disintegrat 00 every 8 Medic in ing tablet hours as e needed for Nausea. tramadol 2021-03 Yes 1{tbl} Take 1 [facility] (ULTRAM) 50 0-27 Tablet by Col lege MG tablet 00:00: mouth of 00 every 8 Medicin hours as e needed for Pain. famotidine 2021-03 Yes 20mg Take 0.5 [place] marine (PEPCID) 40 0-27 Tablets by Co llege MG tablet 00:00: mouth of 00 daily. Medicin e ondansetron 2021-03 Yes 4mg Take 1 [facility] (ZOFRAN-ODT 0-27 Tablet by Col lege ) 4 mg 00:00: mouth of disintegrat 00 every 8 Medic in ing tablet hours as e needed for Nausea. famotidine 2021-03 Yes 20mg Take 0.5 [place] [facility] (PEPCID) 40 0-27 Tablets by Co llege MG tablet 00:00: mouth of 00 daily. Medicin e ondansetron 2021-03 Yes 4mg Take 1 [facility] (ZOFRAN-ODT 0-27 Tablet by Col lege ) 4 mg 00:00: mouth of disintegrat 00 every 8 Medic in ing tablet hours as e needed for Nausea. famotidine 2021-03 Yes 20mg Take 0.5 [place] [facility] (PEPCID) 40 0-27 Tablets by Co llege MG tablet 00:00: mouth of 00 daily. Medicin e docusate 2021-03- No 100mg Take 1 [facility] sodium 0-27 11-22 capsule by [place] [facility] (COLACE) 00:00: 00:00 mouth two of 100 MG 00 :00 times Medicin capsule daily. e cyclobenzap 2021-03- No 10mg Take 1 [place] [facility] rine 0-27 11-22 Tablet by [place] (FLEXERIL) 00:00: 00:00 mouth 3 of 10 MG 00 :00 times Medicin tablet daily as e needed for Muscle spasms. tramadol 2021-03- No 1{tbl} Take 1 [facility] (ULTRAM) 50 0-27 11-22 Tablet by Co llege MG tablet 00:00: 00:00 mouth of 00 :00 every 8 Medicin hours as e needed for Pain. fluticasone 2021-03 Yes Advair HFA Univers propion-jena 0-09 230 mcg-21 it y of meteroL 10:19: mcg/actuat [place] 230-21 24 ion Medical mcg/actuati aerosol Branc h on inhaler inhaler fluticasone 2021-03 Yes Advair HFA Univers propion-jena 0-09 230 mcg-21 it y of meteroL 10:19: mcg/actuat [place] 230-21 24 ion Medical mcg/actuati aerosol [place] h on inhaler inhaler fluticasone 2021-03 Yes Advair HFA Univers propion-jena 0-09 230 mcg-21 it y of meteroL 10:19: mcg/actuat [place] 230-21 24 ion Medical mcg/actuati aerosol Branc h on inhaler inhaler bumetanide Yes 1mg Take 1 mg Un sally 1 mg tablet 9-28 by mouth ity of 00:00: every [place] 00 morning. Medical Branch bumetanide Yes 1mg Take 1 mg Un sally 1 mg tablet 9-28 by mouth ity of 00:00: every [place] 00 morning. Medical Branch bumetanide Yes 1mg Take 1 mg Un sally 1 mg tablet 9-28 by mouth ity of 00:00: every [place] 00 morning. Medical Branch linaCLOtide Yes [id number] Take 1 [facility] (LINZESS) 9-22 capsule by [facility] ege 145 MCG 00:00: mouth at of CAPS 00 bedtime. Medicin e linaCLOtide Yes [id number] Take 1 [facility] (LINZESS) 9-22 capsule by Is[facility]ell ege 145 MCG 00:00: mouth at of CAPS 00 bedtime. Medicin e linaCLOtide Yes [id number] Take 1 [facility] (LINZESS) 9-22 capsule by Isabell ege 145 MCG 00:00: mouth at of CAPS 00 bedtime. Medicin e linaCLOtide Yes [id number] Take 1 [place] (LINZESS) 9-22 capsule by Isabell ege 145 MCG 00:00: mouth at of CAPS 00 bedtime. Medicin e Fluticasone Yes Advair HFA [facility] -Salmeterol 9-15 230 mcg-21 Co llege 230-21 08:53: mcg/actuat of MCG/ACT 45 ion Medicin AERO aerosol e inhaler Fluocinolon Yes [place] [facility] e Acetonide 9-15 the/FS Colleg e Body 0.01 % 08:53: Body Oil of OIL 45 0.01 % Medicin e Multiple Yes 1{tbl} Take 1 [facility] 9-15 Tablet by Col denisa bradford 08:53: mouth of (MULTI-DEVIN 45 daily. Medici n MIN Adina e GUMMIES) Vitamins CHEW ADVAIR HFA Yes [id number] INHALE 2 [place] 230-21 9-13 PUFFS BY [place] MCG/ACT 00:00: MOUTH of AERO 00 TWICE A Medicin DAY e ADVAIR HFA Yes [id number] INHALE 2 [facility] 230-21 9-13 PUFFS BY [place] MCG/ACT 00:00: MOUTH of AERO 00 TWICE A Medicin DAY e ADVAIR HFA Yes [id number] INHALE 2 [facility] 230-21 9-13 PUFFS BY [place] MCG/ACT 00:00: MOUTH of AERO 00 TWICE A Medicin DAY e ADVAIR HFA Yes [id number] INHALE 2 [place] 230-21 9-13 PUFFS BY [place] MCG/ACT 00:00: MOUTH of AERO 00 TWICE A Medicin DAY e albuterol Yes INHALE 2 Univ ers 90 9-06 PUFFS BY ity of mcg/actuati 00:00: MOUTH [place] on inhaler 00 EVERY 4 Medica l HOURS Branch NEEDED FOR WHEEZING albuterol Yes INHALE 2 Univ ers 90 9-06 PUFFS BY ity of mcg/actuati 00:00: MOUTH [place] on inhaler 00 EVERY 4 Medica l HOURS Branch NEEDED FOR WHEEZING albuterol Yes INHALE 2 Univ ers 90 9-06 PUFFS BY ity of mcg/actuati 00:00: MOUTH [place] on inhaler 00 EVERY 4 Medica l HOURS Branch NEEDED FOR WHEEZING Albuterol Yes INHALE 2 [facility] Sulfate 9-06 PUFFS BY [place] (PROAIR 00:00: MOUTH of HFA) 108 00 EVERY 4 Medicin (90 Base) HOURS e MCG/ACT NEEDED FOR AERS WHEEZING Albuterol Yes INHALE 2 [facility] Sulfate 9-06 PUFFS BY [place] (PROAIR 00:00: MOUTH of HFA) 108 00 EVERY 4 Medicin (90 Base) HOURS e MCG/ACT NEEDED FOR AERS WHEEZING Albuterol 2021-0 Yes INHALE 2 [facility] Sulfate 9-06 PUFFS BY [place] (PROAIR 00:00: MOUTH of HFA) 108 00 EVERY 4 Medicin (90 Base) HOURS e MCG/ACT NEEDED FOR AERS WHEEZING Albuterol 2021-0 Yes INHALE 2 [place] or Sulfate 9-06 PUFFS BY [place] (PROAIR 00:00: MOUTH of HFA) 108 00 EVERY 4 Medicin (90 Base) HOURS e MCG/ACT NEEDED FOR AERS WHEEZING triamcinolo 2021-0 Yes [id number] Apply to [facility] ne 8-31 area(s) 2 ity of acetonide 00:00: (two) [place] 0.1 % 00 times Medical ointment daily. To Branch thick areas only. fluocinolon 2022-0 Yes [id number] Apply to Univers e 8-31 area(s) 2 ity of (DERMA-SMOO 00:00: (two) [place] THE/FS BODY 00 times Medical OIL) 0.01 % daily as Bran ch body oil needed for Rash. fluticasone 2022-0 Yes [id number] Apply to [facility] propionate 8-31 area(s) 2 ity of 0.005 % 00:00: (two) [place] ointment 00 times Medical daily. Branch triamcinolo 2022-0 Yes [id number] Apply to [facility] ne 8-31 area(s) 2 ity of acetonide 00:00: (two) [place] 0.1 % 00 times Medical ointment daily. To Branch thick areas only. fluocinolon 2022-0 Yes [id number] Apply to Univers e 8-31 area(s) 2 ity of (DERMA-SMOO 00:00: (two) [place] THE/FS BODY 00 times Medical OIL) 0.01 % daily as Bran ch body oil needed for Rash. fluticasone 2022-0 Yes [id number] Apply to [facility] propionate 8-31 area(s) 2 ity of 0.005 % 00:00: (two) [place] ointment 00 times Medical daily. Branch triamcinolo 2022-0 Yes [id number] Apply to [facility] ne 8-31 area(s) 2 ity of acetonide 00:00: (two) [place] 0.1 % 00 times Medical ointment daily. To Branch thick areas only. fluocinolon 2022-0 Yes [id number] Apply to [facility] e 8-31 area(s) 2 ity of (DERMA-SMOO 00:00: (two) [place] THE/FS BODY 00 times Medical OIL) 0.01 % daily as Bran ch body oil needed for Rash. fluticasone 2022-0 Yes [id number] Apply to [facility] propionate 8-31 area(s) 2 ity of 0.005 % 00:00: (two) [place] ointment 00 times Medical daily. Branch triamcinolo 202-0 Yes [id number] Apply to [facility] ne 8-31 area(s) 2 ity of acetonide 00:00: (two) [place] 0.1 % 00 times Medical ointment daily. To Branch thick areas only. fluocinolon 2022-0 Yes [id number] Apply to [facility] e 8-31 area(s) 2 ity of (DERMA-SMOO 00:00: (two) [place] THE/FS BODY 00 times Medical OIL) 0.01 % daily as Bran ch body oil needed for Rash. fluticasone 2022-0 Yes [id number] Apply to [facility] propionate 8- area(s) 2 ity of 0.005 % 00:00: (two) [place] ointment 00 times Medical daily. Branch triamcinolo 202-0 Yes [id number] Apply to Univers ne 8-31 area(s) 2 ity of acetonide 00:00: (two) [place] 0.1 % 00 times Medical ointment daily. To Branch thick areas only. fluocinolon 2022-0 Yes [id number] Apply to Univers e 8-31 area(s) 2 ity of (DERMA-SMOO 00:00: (two) [place] THE/FS BODY 00 times Medical OIL) 0.01 % daily as Bran ch body oil needed for Rash. fluticasone 2022-0 Yes [id number] Apply to [facility] propionate 8-31 area(s) 2 ity of 0.005 % 00:00: (two) [place] ointment 00 times Medical daily. Branch fluticasone 2021-0 Yes [facility] (CUTIVATE) 8 College 0.005 % 00:00: of ointment 00 Medicin e triamcinolo 2-[address] [facility] 8 [place] ([facility]) 00:00: of 0.1 % 00 Medicin ointment e fluticasone 2-0 Yes [facility] (CUTIVATE) 8 [place] 0.005 % 00:00: of ointment 00 Medicin e triamcinolo 2-[address] [facility] 8 [place] ([facility]) 00:00: of 0.1 % 00 Medicin ointment e fluticasone 2-0 Yes [facility] (CUTIVATE) 8 [place] 0.005 % 00:00: of ointment 00 Medicin e triamcinolo 2-[address] [facility] 8 [place] ([facility]) 00:00: of 0.1 % 00 Medicin ointment e fluticasone 2-0 Yes [facility] (CUTIVATE) [place] 0.005 % 00:00: of ointment 00 Medicin e triamcinolo 2-[address] [facility] 8 [place] ([facility]) 00:00: of 0.1 % 00 Medicin ointment e norethindro 2-0 Yes 1{tbl} Take 1 [facility] ne 6-28 Tablet by [place] (Telekenex) 00:00: mouth of 0.35 MG 00 daily. Medicin tablet e norethindro 2-0 Yes 1{tbl} Take 1 [facility] ne 6-28 Tablet by [place] (Telekenex) 00:00: mouth of 0.35 MG 00 daily. Medicin tablet e norethindro 2-0 Yes 1{tbl} Take 1 [facility] ne 6-28 Tablet by [place] (Telekenex) 00:00: mouth of 0.35 MG 00 daily. Medicin tablet e norethindro 2-0 Yes 1{tbl} Take 1 [facility] ne 6-28 Tablet by [place] (Telekenex) 00:00: mouth of 0.35 MG 00 daily. Medicin tablet e conjugated 2021-0 Yes [id number] 1g Insert 1 g Univers estrogens 4-20 into ity of 0.625 00:00: vagina at [place] mg/gram 00 bedtime. Medical vaginal Branch cream conjugated 2021-0 Yes [id number] 1g Insert 1 g [facility] estrogens 4-20 into ity of 0.625 00:00: vagina at [place] mg/gram 00 bedtime. Medical vaginal Branch cream conjugated 2021-0 Yes [id number] 1g Insert 1 g [facility] estrogens 4-20 into ity of 0.625 00:00: vagina at [place] mg/gram 00 bedtime. Medical vaginal Branch cream conjugated 2021- Yes [id number] 1g Insert 1 g [facility] estrogens 4-20 into ity of 0.625 00:00: vagina at [place] mg/gram 00 bedtime. Medical vaginal Branch cream conjugated 2021- Yes [id number] 1g Insert 1 g [facility] estrogens 4-20 into ity of 0.625 00:00: vagina at [place] mg/gram 00 bedtime. Medical vaginal Branch cream fluocinolon 2021- No [id number] Apply to [facility] e 4-20 11-22 area(s) 2 ity of (DERMA-SMOO 00:00: 00:00 (two) [place] THE/FS BODY 00 :00 times Medical OIL) 0.01 % daily as Bran ch body oil needed for Rash. fluticasone 2021- No [id number] Apply to [facility] propionate 411-22 area(s) 2 ity of 0.005 % 00:00: 00:00 (two) [place] ointment 00 :00 times Medical daily. Branch fluocinolon 2021- No [id number] Apply to Univers e 411-22 area(s) 2 ity of (DERMA-SMOO 00:00: 00:00 (two) [place] THE/FS BODY 00 :00 times Medical OIL) 0.01 % daily as Bran ch body oil needed for Rash. fluticasone 2021- No [id number] Apply to [facility] propionate 4-20 11-22 area(s) 2 ity of 0.005 % 00:00: 00:00 (two) [place] ointment 00 :00 times Medical daily. Branch Fluticasone Yes Advair HFA [facility] -Salmeterol 3-16 230 mcg-21 Co llege 230-21 10:46: mcg/actuat of MCG/ACT 12 ion Medicin AERO aerosol e inhaler Fluocinolon Yes [place]-Smoo [facility] e Acetonide 3-16 the/FS Colleg e Body 0.01 % 10:46: Body Oil of OIL 12 0.01 % Medicin e predniSONE Yes prednisone [place] (DELTASONE) 3-16 20 mg [place] 20 MG 10:46: tablet of tablet 12 Medicin e Fluocinolon Yes [place] e Acetonide 2-16 the/FS Colleg e Body 0.01 % 13:50: Body Oil of OIL 32 0.01 % Medicin e predniSONE Yes prednisone [place] (DELTASONE) 2-16 20 mg [place] 20 MG 13:50: tablet of tablet 32 Medicin e Fluticasone Yes Advair HFA [place] -Salmeterol 2-16 230 mcg-21 Co llege 230-21 13:49: mcg/actuat of MCG/ACT 18 ion Medicin AERO aerosol e inhaler Albuterol Yes INHALE 2 [facility] or Sulfate 2-04 PUFFS BY [facility] (PROAIR 00:00: MOUTH of HFA) 108 00 EVERY 4 Medicin (90 Base) HOURS e MCG/ACT NEEDED FOR AERS WHEEZING Albuterol Yes INHALE 2 [facility] Sulfate 2-04 PUFFS BY [facility] (PROAIR 00:00: MOUTH of HFA) 108 00 EVERY 4 Medicin (90 Base) HOURS e MCG/ACT NEEDED FOR AERS WHEEZING Albuterol Yes INHALE 2 [facility] Sulfate 2-04 PUFFS BY [facility] (PROAIR 00:00: MOUTH of HFA) 108 00 EVERY 4 Medicin (90 Base) HOURS e MCG/ACT NEEDED FOR AERS WHEEZING Amoxicillin Amoxicillin 2021- No 1{table BID Amoxicilli 875 MG 875 MG 17 04-17 t} n 875 MG 00:00: 00:00 00 :00 Fluticasone 2020-03 Yes Advair HFA [place] -Salmeterol 2-23 230 mcg-21 Co llege 230-21 15:01: mcg/actuat of MCG/ACT 23 ion Medicin AERO aerosol e inhaler Fluticasone 2020-03 Yes Advair HFA [place] -Salmeterol 2-23 230 mcg-21 Co llege 230-21 15:01: mcg/actuat of MCG/ACT 23 ion Medicin AERO aerosol e inhaler bumetanide 2020-03 Yes [place] (BUMEX) 1 2-09 [...] of 00 Medicin e bumetanide 2020-03 Yes [facility] (BUMEX) 1 2-09 College MG tablet 00:00: of 00 Medicin e bumetanide 2020-03 Yes [facility] (BUMEX) 1 2-09 College MG tablet 00:00: of 00 Medicin e bumetanide 2020-03 Yes [place] (BUMEX) 1 2-09 College MG tablet 00:00: of 00 Medicin e albuterol Yes 180ug Inhale 2 [place] [facility] (PROAIR 8-[facility] 108 00:00: mouth of (90 base) 00 every 4 Medicin mcg/act hours as e inhaler needed for Wheezing. Fluticasone 0 Yes [id number] INHALE 2 [place] -Salmeterol 8-18 PUFFS BY [facility] (ADVAIR 00:00: MOUTH of HFA) 00 TWICE A Medic in MCG/ACT DAY e AERO albuterol 0 Yes 180ug Inhale 2 [place] [employer] (PROAIR 8-18 Puffs by [place] HFA) 108 00:00: mouth of (90 base) 00 every 4 Medicin mcg/act hours as e inhaler needed for Wheezing. Fluticasone 0 Yes [id number] INHALE 2 [place] -Salmeterol 8-18 PUFFS BY [facility] (ADVAIR 00:00: MOUTH of HFA) TWICE A Medic in MCG/ACT DAY e AERO albuterol 0 Yes 180ug Inhale 2 [place] [employer] (PROAIR 8-18 Puffs by [facility]) 108 00:00: mouth of (90 base) 00 every 4 Medicin mcg/act hours as e inhaler needed for Wheezing. Fluticasone 2020-0 Yes [id number] INHALE 2 [facility] -Salmeterol 8-18 PUFFS BY [facility] (ADVAIR 00:00: MOUTH of HFA) TWICE A Medic in MCG/ACT DAY e AERO albuterol 0 Yes 180ug Inhale 2 [place] [employer] (PROAIR 8-18 Puffs by [facility]) 108 00:00: mouth of (90 base) 00 every 4 Medicin mcg/act hours as e inhaler needed for Wheezing. Fluticasone 2020-0 Yes [id number] INHALE 2 [place] -Salmeterol 8-18 PUFFS BY [facility] (ADVAIR 00:00: MOUTH of HFA) TWICE A Medic in MCG/ACT DAY e AERO furosemide 0 Yes 20mg Take 20 mg [place] (LASIX) 20 8-11 by mouth Colle ge MG tablet 00:00: daily. of Medicin e furosemide 2020-0 Yes 20mg Take 20 mg [place] (LASIX) 20 8-11 by mouth Colle ge MG tablet 00:00: daily. of Medicin e furosemide 2020-0 Yes 20mg Take 20 mg [place] (LASIX) 20 8-11 by mouth Colle ge MG tablet 00:00: daily. of Medicin e furosemide 2020-0 Yes 20mg Take 20 mg [place] (LASIX) 20 8-11 by mouth Colle ge MG tablet 00:00: daily. of 00 Medicin e crisaborole 2020-0 Yes [id number] Apply to Univers (EUCRISA) 2 5-11 area(s) 2 ity of % Oint 00:00: (two) [place] 00 times Medical daily as Branch needed (eczema). crisaborole 202-0 Yes [id number] Apply to Univers (EUCRISA) 2 5-11 area(s) 2 ity of % Oint 00:00: (two) [place] 00 times Medical daily as Branch needed (eczema). crisaborole 2021-0 Yes [id number] Apply to Univers (EUCRISA) 2 5-11 area(s) 2 ity of % Oint 00:00: (two) [place] 00 times Medical daily as Branch needed (eczema). crisaborole 2021-0 Yes [id number] Apply to Univers (EUCRISA) 2 5-11 area(s) 2 ity of % Oint 00:00: (two) [place] 00 times Medical daily as Branch needed (eczema). crisaborole 2021-0 Yes [id number] Apply to Univers (EUCRISA) 2 5-11 area(s) 2 ity of % Oint 00:00: (two) [place] 00 times Medical daily as Branch needed (eczema). ketoconazol 2020-0 Yes Apply to Un sally e 2 % 4-26 area(s) 2 ity of shampoo 00:00: (two) [place] 00 times per Medical week for Branch Itching. dupilumab 2021-0 Yes [id number] 300mg inject 1 Univers (DUPIXENT 4-26 Syringe ity of SYRINGE) 00:00: [place] mg/2 mL 00 skin every Me dical Syrg 2 (two) Branch syringe weeks. ketoconazol 2021-0 Yes Apply to Un sally e 2 % 4-26 area(s) 2 ity of shampoo 00:00: (two) [place] 00 times per Medical week for Branch Itching. dupilumab 2021-0 Yes [id number] 300mg inject 1 [facility] (DUPIXENT 4-26 Syringe ity of SYRINGE) 00:00: [place] mg/2 mL 00 skin every Me dical Syrg 2 (two) Branch syringe weeks. ketoconazol 2021-0 Yes Apply to Un sally e 2 % 4-26 area(s) 2 ity of shampoo 00:00: (two) [place] 00 times per Medical week for Branch Itching. dupilumab 2021-0 Yes [id number] 300mg inject 1 [facility] (DUPIXENT 4-26 Syringe ity of [place]ING[place]) 00:00: [place] mg/2 mL 00 skin every Me dical Syrg 2 (two) Branch syringe weeks. ketoconazol 2021-0 Yes Apply to Un sally e 2 % 4-26 area(s) 2 ity of shampoo 00:00: (two) [place] 00 times per Medical week for Branch Itching. dupilumab Yes [id number] 300mg inject 1 [facility] (DUPIXENT 4-26 Syringe ity of [place]ING[place]) 00:00: [place] 300 mg/2 mL 00 skin every Me dical Syrg 2 (two) Branch syringe weeks. ketoconazol Yes Apply to Un sally e 2 % 4-26 area(s) 2 ity of shampoo 00:00: (two) [place] 00 times per Medical week for Branch Itching. dupilumab Yes [id number] 300mg inject 1 [facility] (DUPIXENT 4-26 Syringe ity of [place]) 00:00: [place] mg/2 mL 00 skin every Me dical Syrg 2 (two) Branch syringe weeks. salicylic Yes [id number] Apply to Univers acid 6 % 2-25 plantar ity of gel 00:00: feet under [place] 00 occlusion Medical 2-3 times Branch per week salicylic 0 Yes [id number] Apply to Univers acid 6 % 2-25 plantar ity of gel 00:00: feet under [place] 00 occlusion Medical 2-3 times Branch per week salicylic 0 Yes [id number] Apply to Univers acid 6 % 2-25 plantar ity of gel 00:00: feet under [place] 00 occlusion Medical 2-3 times Branch per week salicylic 0 Yes [id number] Apply to Univers acid 6 % 2-25 plantar ity of gel 00:00: feet under [place] 00 occlusion Medical 2-3 times Branch per week salicylic 0 Yes [id number] Apply to Univers acid 6 % 2-25 plantar ity of gel 00:00: feet under [place] 00 occlusion Medical 2-3 times Branch per week Fluticasone 0 Yes [id number] INHALE 2 [place] -Salmeterol 2-25 PUFFS BY [facility] quiñone[facility] (ADVAIR 00:00: MOUTH of HFA) 230-21 00 TWICE A Medic in MCG/ACT DAY e AERO Fluticasone 2019-03- No [id number] INHALE 2 [place] -Salmeterol 2-17 02-25 PUFFS BY Col lege (ADVAIR 00:00: 00:00 MOUTH of HFA) 230-21 00 :00 TWICE A Medic in MCG/ACT DAY MUST e AERO COMPLETE PULMONOLOG Y APPT FOR FUTURE REFILLS PROVENTIL 2019-03 Yes [id number] INHALE 2 [facility] HFA 108 (90 0-12 PUFFS BY [facility] Base) 00:00: MOUTH 4 of MCG/ACT 00 TIMES A Medicin inhaler DAY e PROVENTIL 2019-03 Yes [id number] INHALE 2 [place] HFA 108 (90 0-12 PUFFS BY [facility] Base) 00:00: MOUTH 4 of MCG/ACT 00 TIMES A Medicin inhaler DAY e PROVENTIL 2019-03 Yes [id number] INHALE 2 [place] HFA 108 (90 0-12 PUFFS BY [facility] Base) 00:00: MOUTH 4 of MCG/ACT 00 TIMES A Medicin inhaler DAY e PROVENTIL 2019-03 Yes [id number] INHALE 2 [facility] HFA 108 (90 0-12 PUFFS BY [facility] Base) 00:00: MOUTH 4 of MCG/ACT 00 TIMES A Medicin inhaler DAY e PROVENTIL 2019-03 Yes [id number] INHALE 2 [facility] HFA 108 (90 0-12 PUFFS BY [facility] Base) 00:00: MOUTH 4 of MCG/ACT 00 TIMES A Medicin inhaler DAY e lactulose 2020- No 20g Take 1 [facility] (CEPHULAC) 5-29 02-25 Packet by Col lege 20 g packet 00:00: 00:00 mouth 3 of 00 :00 times Medicin daily. e Singulair Singulair Yes [place] 1 tablet Common 1-14 [place] [facility] 00:00: - [facility]I 00 [facility] Singulair Singulair 2019-0 No 1{table QD Singulair 10 MG 10 MG 1-14 t} 10 MG 00:00: 00 Singulair Singulair 2019-0 No 1{table QD Singulair 10 MG 10 MG 1-14 t} 10 MG 00:00: 00 Singulair Singulair 2019-0 No 1{table QD Singulair 10 MG 10 MG 1-14 t} 10 MG 00:00: 00 Singulair Singulair 2020-0 No 1{table QD Singulair 10 MG 10 MG 1-14 t} 10 MG 00:00: 00 Singulair Singulair 2020-0 No 1{table QD Singulair 10 MG 10 MG 1-14 t} 10 MG 00:00: 00 acetaminoph 2019-0 Yes [id number] 500mg Take 1 Univers en 500 mg 2-08 tablet by ity o f tablet 00:00: mouth [place] 00 every 6 Medical (six) Branch hours as needed for Pain. gabapentin 2019-0 Yes [id number] 300mg Take 1 [facility] 300 mg 2-08 capsule by ity of capsule 00:00: mouth 3 [place] 00 (three) Medical times Branch daily. ketorolac 2019-0 Yes [id number] 10mg Take 1 Un sally 10 mg 2-08 tablet by ity of tablet 00:00: mouth [place] 00 every 6 Medical (six) Branch hours as needed for Pain (scale 7-10) (Do not take more than 3 days in a row). ondansetron 2018-0 Yes [id number] 4mg Take 1 [facility] 4 mg 2-08 tablet by ity of disintegrat 00:00: mouth [place] ing tablet 00 every 4 Medica l (four) Branch hours as needed for Nausea and Vomiting (N/V). tamsulosin 2019-0 Yes [id number] .4mg Take 1 U nivers 0.4 mg 24 2-08 capsule by ity of hr capsule 00:00: mouth at [place] as 00 bedtime. Medical Branch acetaminoph 2018-0 Yes [id number] 500mg Take 1 [facility] en 500 mg 2-08 tablet by ity o f tablet 00:00: mouth [place] 00 every 6 Medical (six) Branch hours as needed for Pain. gabapentin 2019-0 Yes [id number] 300mg Take 1 [facility] 300 mg 2-08 capsule by ity of capsule 00:00: mouth 3 [place] 00 (three) Medical times Branch daily. ketorolac 2019-0 Yes [id number] 10mg Take 1 Un sally 10 mg 2-08 tablet by ity of tablet 00:00: mouth [place] 00 every 6 Medical (six) Branch hours as needed for Pain (scale 7-10) (Do not take more than 3 days in a row). ondansetron 2019-0 Yes [id number] 4mg Take 1 Univers 4 mg 2-08 tablet by ity of disintegrat 00:00: mouth [place] ing tablet 00 every 4 Medica l (four) Branch hours as needed for Nausea and Vomiting (N/V). tamsulosin 2019-0 Yes [id number] .4mg Take 1 U nivers 0.4 mg 24 2-08 capsule by ity of hr capsule 00:00: mouth at [place] as 00 bedtime. Medical Branch acetaminoph 2019-0 Yes [id number] 500mg Take 1 [facility] en 500 mg 2-08 tablet by ity o f tablet 00:00: mouth [place] 00 every 6 Medical (six) Branch hours as needed for Pain. gabapentin 2019-0 Yes [id number] 300mg Take 1 [facility] 300 mg 2-08 capsule by ity of capsule 00:00: mouth 3 [place] 00 (three) Medical times Branch daily. ketorolac 2019-0 Yes [id number] 10mg Take 1 Un sally 10 mg 2-08 tablet by ity of tablet 00:00: mouth [place] 00 every 6 Medical (six) Branch hours as needed for Pain (scale 7-10) (Do not take more than 3 days in a row). ondansetron 2019-0 Yes [id number] 4mg Take 1 Univers 4 mg 2-08 tablet by ity of disintegrat 00:00: mouth [place] ing tablet 00 every 4 Medica l (four) Branch hours as needed for Nausea and Vomiting (N/V). tamsulosin 2019-0 Yes [id number] .4mg Take 1 U nivers 0.4 mg 24 2-08 capsule by ity of hr capsule 00:00: mouth at [place] as 00 bedtime. Medical Branch acetaminoph 2019-0 Yes [id number] 500mg Take 1 Univers en 500 mg 2-08 tablet by ity o f tablet 00:00: mouth [place] 00 every 6 Medical (six) Branch hours as needed for Pain. gabapentin 2019-0 Yes [id number] 300mg Take 1 [facility] 300 mg 2-08 capsule by ity of capsule 00:00: mouth 3 [place] 00 (three) Medical times Branch daily. ketorolac 2019-0 Yes [id number] 10mg Take 1 Un sally 10 mg 2-08 tablet by ity of tablet 00:00: mouth [place] 00 every 6 Medical (six) Branch hours as needed for Pain (scale 7-10) (Do not take more than 3 days in a row). ondansetron 2018- Yes [id number] 4mg Take 1 Univers 4 mg 2-08 tablet by ity of disintegrat 00:00: mouth [place] ing tablet 00 every 4 Medica l (four) Branch hours as needed for Nausea and Vomiting (N/V). tamsulosin Yes [id number] .4mg Take 1 U nivers 0.4 mg 24 2-08 capsule by ity of hr capsule 00:00: mouth at [place] as 00 bedtime. Medical Branch acetaminoph 2018- Yes [id number] 500mg Take 1 Univers en 500 mg 2-08 tablet by ity o f tablet 00:00: mouth [place] 00 every 6 Medical (six) Branch hours as needed for Pain. gabapentin Yes [id number] 300mg Take 1 [facility] 300 mg 2-08 capsule by ity of capsule 00:00: mouth 3 [place] 00 (three) Medical times Branch daily. ketorolac Yes [id number] 10mg Take 1 Un sally 10 mg 2-08 tablet by ity of tablet 00:00: mouth [place] 00 every 6 Medical (six) Branch hours as needed for Pain (scale 7-10) (Do not take more than 3 days in a row). ondansetron Yes [id number] 4mg Take 1 Univers 4 mg 2-08 tablet by ity of disintegrat 00:00: mouth [place] ing tablet 00 every 4 Medica l (four) Branch hours as needed for Nausea and Vomiting (N/V). tamsulosin Yes [id number] .4mg Take 1 U nivers 0.4 mg 24 2-08 capsule by ity of hr capsule 00:00: mouth at [place] as 00 bedtime. Medical Branch eletriptan 2020- No [id number] 40mg Take 1 Tab [facility] (RELPAX) 40 8-19 02-25 by mouth Col lege MG tablet 00:00: 00:00 once as of 00 :00 needed for Medicin up to 1 e dose. may repeat in 2 hours if necessary Spacer/Aero 2014- Yes 1{devic 1 Device [facility] Chamber 7-13 e} daily. [place] Mouthpiece 00:00: of MISC 00 Medicin e Spacer/Aero 2015-0 Yes 1{devic 1 Device [facility] Chamber 7-13 e} daily. [facility] Mouthpiece 00:00: of MISC 00 Medicin e Spacer/Aero 2015-0 Yes 1{devic 1 Device [facility] Chamber 7-13 e} daily. [facility] Mouthpiece 00:00: of MISC 00 Medicin e Spacer/Aero 2015-0 Yes 1{devic 1 Device [facility] Chamber 7-13 e} daily. [facility] Mouthpiece 00:00: of MISC 00 Medicin e Spacer/Aero 2015-0 Yes 1{devic 1 Device [place] Chamber 7-13 e} daily. College Mouthpiece 00:00: of MISC 00 Medicin e Spacer/Aero 2015-0 Yes 1{devic 1 Device [place] Chamber 7-13 e} daily. College Mouthpiece 00:00: of MISC 00 Medicin e Spacer/Aero 2015-0 Yes 1{devic 1 Device [place] Chamber 7-13 e} daily. College Mouthpiece 00:00: of MISC 00 Medicin e Spacer/Aero 2015-0 Yes 1{devic 1 Device [facility] Chamber 7-13 e} daily. College Mouthpiece 00:00: of MISC 00 Medicin e Spacer/Aero 2015-0 Yes 1{devic 1 Device [facility] Chamber 7-13 e} daily. College Mouthpiece 00:00: of MISC 00 Medicin e ProAir HFA ProAir HFA No ProAir HFA 108 (90 108 (90 108 (90 Base) Base) Base) MCG/ACT MCG/ACT MCG/ACT Advair HFA Advair HFA No Advair HFA [...] aerosol inhaler ProAir HFA ProAir HFA Yes [place] (Prior Common [place] Auth: [facility] Ref#:[id number] - CHI 40) [facility] Advair HFA Advair HFA Yes [place]ithya (Prior Common [place] Auth: Rx [facility] Ref#:[id number] - CHI 39) [facility] Advair HFA Advair HFA No QD Advair HFA 230-21 230-21 230-21 MCG/ACT MCG/ACT MCG/ACT ProAir HFA ProAir HFA No ProAir HFA 108 (90 108 (90 108 (90 Base) Base) Base) MCG/ACT MCG/ACT MCG/ACT Advair HFA Advair HFA No QD Advair HFA 230-21 230-21 230-21 MCG/ACT MCG/ACT MCG/ACT ProAir HFA ProAir HFA No ProAir HFA 108 (90 108 (90 108 (90 Base) Base) Base) MCG/ACT MCG/ACT MCG/ACT ProAir HFA ProAir HFA No ProAir HFA 108 (90 108 (90 108 (90 Base) Base) Base) MCG/ACT MCG/ACT MCG/ACT Advair HFA Advair HFA No QD Advair HFA 230-21 230-21 230-21 MCG/ACT MCG/ACT MCG/ACT Advair HFA Advair HFA No QD Advair HFA 230-21 230-21 230-21 MCG/ACT MCG/ACT MCG/ACT ProAir HFA ProAir HFA No ProAir HFA 108 (90 108 (90 108 (90 Base) Base) Base) MCG/ACT MCG/ACT MCG/ACT Advair HFA Advair HFA No QD Advair HFA 230-21 230-21 230-21 MCG/ACT MCG/ACT MCG/ACT Immunizations Ordered Immunization Filled Immunization Date Status Commen ts Source Name Name Tdap 2013-02-23 Completed [facility] 00:00:00 of Medicine Tdap 2013-02-23 Completed [facility] 00:00:00 of Medicine Tdap 2013-02-23 Completed [facility] 00:00:00 of Medicine Tdap 2013-02-23 Completed [facility] 00:00:00 of Medicine Tdap 2013-02-23 Completed [facility] 00:00:00 of Medicine Influenza Quad-PF 2012-12-17 Completed [facility] 00:00:00 of Medicine Influenza Quad-PF 2012-12-17 Completed [facility] 00:00:00 of Medicine Influenza Quad-PF 2012-12-17 Completed [facility] 00:00:00 of Medicine Influenza Quad-PF 2012-12-17 Completed [facility] 00:00:00 of Medicine Vital Signs Vital Name Observation Time Observation Value Comments Source Systolic blood 2022-02-21 17:10:00 103 mm[Hg] [facility] pressure Medicine Diastolic blood 2022-02-21 17:10:00 72 mm[Hg] [facility] Medicine Heart rate 2022-02-21 17:10:00 62 /min [facility] of Medicine Body height 2022-02-21 17:10:00 154.9 cm [facility] of Medicine Body weight 2022-02-21 17:10:00 94.439 kg [facility] of Medicine BMI 2022-02-21 17:10:00 39.34 kg/m2 [facility] ol[facility] of Medicine Systolic blood 2022-02-13 21:00:00 114 mm[Hg] [facility] of pressure Medicine Diastolic blood 2022-02-13 21:00:00 76 mm[Hg] [facility] [place] Medicine Heart rate 2022-02-13 21:00:00 68 /min [facility] ollege of Medicine Body height 2022-02-13 21:00:00 154.9 cm [facility] of Medicine Body weight 2022-02-13 21:00:00 95 kg [facility] of Medicine BMI 2022-02-13 21:00:00 39.57 kg/m2 [facility]lege of Medicine Body height 2022-02-01 15:50:00 154.9 cm [facility] HEIGHT 2022-01-29 06:40:00 154.9 cm WEIGHT 2022-01-29 06:40:00 101.7 kg HEIGHT 2022-01-19 15:58:00 154.9 cm WEIGHT 2022-01-19 15:58:00 100.245 kg HEIGHT 2022-01-29 06:40:00 154.9 cm WEIGHT 2022-01-29 06:40:00 101.7 kg HEIGHT 2022-01-19 15:58:00 154.9 cm WEIGHT 2022-01-19 15:58:00 100.245 kg HEIGHT 2022-01-29 06:40:00 154.9 cm WEIGHT 2022-01-29 06:40:00 101.7 kg HEIGHT 2022-01-19 15:58:00 154.9 cm WEIGHT 2022-01-19 15:58:00 100.245 kg Systolic blood 2022-01-18 19:15:00 101 mm[Hg] [facility] pressure Medicine Diastolic blood 2022-01-18 19:15:00 69 mm[Hg] [facility] pressure Medicine Heart rate 2022-01-18 19:15:00 77 /min [facility] ollege of Medicine Body height 2022-01-18 19:15:00 154.9 cm [facility] Body weight 2022-01-18 19:15:00 100.517 kg [facility] olle of Medicine BMI 2022-01-18 19:15:00 41.87 kg/m2 [facility] Systolic blood 2021-12-31 15:20:00 115 mm[Hg] Univer sity of pressure [facility] Diastolic blood 2021-12-31 15:20:00 84 mm[Hg] Unive rsity of pressure [facility] Heart rate 2021-12-31 15:20:00 78 /min Universi ty of [facility] Body temperature 2021-12-31 15:20:00 37.17 Laura Univ ersity of [facility] Respiratory rate 2021-12-31 15:20:00 16 /min Univ ersity of [facility] Body height 2021-12-31 15:20:00 154.9 cm Universi ty of [facility] Body weight 2021-12-31 15:20:00 101.861 kg [facility] BMI 2021-12-31 15:20:00 42.43 kg/m2 [facility] Oxygen saturation in 2021-12-31 15:20:00 99 /min University Arterial blood by [facility] Pulse oximetry Branch Systolic blood 2021-06-07 15:45:00 111 mm[Hg] [facility] pressure Medicine Diastolic blood 2021-06-07 15:45:00 64 mm[Hg] [facility] pressure Medicine Heart rate 2021-06-07 15:45:00 74 /min [facility] ol[facility] of Medicine Body height 2021-06-07 15:45:00 154.9 cm [facility] of Medicine Body weight 2021-06-07 15:45:00 96.616 kg [facility] ollege of Medicine BMI 2021-06-07 15:45:00 40.25 kg/m2 [facility] of Medicine Systolic blood 2021-05-10 19:46:00 100 mm[Hg] [facility] of pressure Medicine Diastolic blood 2021-05-10 19:46:00 69 mm[Hg] [facility] pressure Medicine Heart rate 2021-05-10 19:46:00 77 /min [facility] of Medicine Body height 2021-05-10 19:46:00 154.9 cm [facility] of Medicine Body weight 2021-05-10 19:46:00 98.431 kg [facility] Medicine BMI 2021-05-10 19:46:00 41.00 kg/m2 [facility] ollege of Medicine Body weight 2021-05-04 21:58:00 98.884 kg [facility] of Medicine BMI 2021-05-04 21:58:00 41.19 kg/m2 [facility] Medicine height 2021-04-10 14:00:00 62.5 [in_i] [facility] weight 2021-04-10 14:00:00 222 [lb_av] [facility] bmi 2021-04-10 14:00:00 39.95 kg/m2 [facility] Systolic blood 2021-03-16 20:50:00 109 mm[Hg] [facility] pressure Medicine Diastolic blood 2021-03-16 20:50:00 66 mm[Hg] [facility] of pressure Medicine Heart rate 2021-03-16 20:50:00 71 /min [facility] ollege [facility] Body height 2021-03-16 20:50:00 154.9 cm [facility] Body weight 2021-03-16 20:50:00 97.07 kg [facility] BMI 2021-03-16 20:50:00 40.43 kg/m2 [facility] BP Diastolic 2021-02-21 00:00:00 66 mm[Hg] [facility] Height 2021-02-21 00:00:00 61 [in_i] [facility] BMI (Body Mass 2021-02-21 00:00:00 41.4 kg/m2 [facility] BP Systolic 2021-02-21 00:00:00 128 mm[Hg] [facility] Body Weight 2021-02-21 00:00:00 219 [lb_av] [facility] BP Diastolic 2021-01-17 00:00:00 68 mm[Hg] [facility] Height 2021-01-17 00:00:00 61 [in_i] [facility] BMI (Body Mass 2021-01-17 00:00:00 41.9 kg/m2 [facility] BP Systolic 2021-01-17 00:00:00 126 mm[Hg] [facility] Body Weight 2021-01-17 00:00:00 222 [lb_av] [facility] BP Diastolic 2020-12-27 00:00:00 66 mm[Hg] [facility] Height 2020-12-27 00:00:00 61 [in_i] [facility] BMI (Body Mass 2020-12-27 00:00:00 41.9 kg/m2 [facility] BP Systolic 2020-12-27 00:00:00 130 mm[Hg] [facility] Body Weight 2020-12-27 00:00:00 221.7 [lb_av] [facility] BP Diastolic 2020-11-15 00:00:00 68 mm[Hg] [facility] Height 2020-11-15 00:00:00 61 [in_i] [facility] BMI (Body Mass 2020-11-15 00:00:00 42.3 kg/m2 [facility] BP Systolic 2020-11-15 00:00:00 128 mm[Hg] [facility] Body Weight 2020-11-15 00:00:00 224 [lb_av] [facility] Systolic blood 2020-05-19 20:04:00 105 mm[Hg] [facility] pressure Medicine Diastolic blood 2020-05-19 20:04:00 70 mm[Hg] [facility] Medicine Heart rate 2020-05-19 20:04:00 75 /min [facility] Body temperature 2020-05-19 20:04:00 36.56 Laura [facility] Respiratory rate 2020-05-19 20:04:00 16 /min [facility] Body height 2020-05-19 20:04:00 154.9 cm [facility] Body weight 2020-05-19 20:04:00 90.719 kg [facility] BMI 2020-05-19 20:04:00 37.79 kg/m2 [facility] Systolic blood 2020-05-19 20:04:00 105 mm[Hg] [facility] pressure Medicine Diastolic blood 2020-05-19 20:04:00 70 mm[Hg] [facility] Medicine Heart rate 2020-05-19 20:04:00 75 /min [facility] Body temperature 2020-05-19 20:04:00 36.56 Laura [facility] Respiratory rate 2020-05-19 20:04:00 16 /min [facility] Body height 2020-05-19 20:04:00 154.9 cm [facility] Body weight 2020-05-19 20:04:00 90.719 kg [facility] BMI 2020-05-19 20:04:00 37.79 kg/m2 [facility] Systolic blood 2022-01-30 15:46:00 114 mm[Hg] [facility] Diastolic blood 2022-01-30 15:46:00 70 mm[Hg] [facility] Heart rate 2022-01-30 15:46:00 64 /min [facility] Body temperature 2022-01-30 15:46:00 37.06 Laura [facility] Respiratory rate 2022-01-30 15:46:00 19 /min [facility] Oxygen saturation in 2022-01-30 15:46:00 98 /min [facility] Arterial blood by Medical Ce nter Pulse oximetry Systolic blood 2022-01-29 15:59:00 107 mm[Hg] [facility] Diastolic blood 2022-01-29 15:59:00 75 mm[Hg] [facility] Heart rate 2022-01-29 15:59:00 82 /min [facility] Body temperature 2022-01-29 15:59:00 36.5 Laura [facility] Respiratory rate 2022-01-29 15:59:00 16 /min [facility] Oxygen saturation in 2022-01-29 15:59:00 96 /min [facility] Arterial blood by Medical Ce nter Pulse oximetry Body height 2022-01-29 06:40:00 154.9 cm [facility] Body weight 2022-01-29 06:40:00 101.7 kg [facility] BMI 2022-01-29 06:40:00 42.36 kg/m2 [facility] Procedures Procedure Date / Time Performing Source Performed Clinician POCT-GLUCOSE METER 2022-01-30 LEONA Amezcua kane 08:12:00 [facility] BASIC METABOLIC PANEL 2022-01-30 [facility] CBC W/PLT COUNT & AUTO 2022-01-[address] [facility] DIFFERENTIAL 04:41:00 [facility] MAGNESIUM 2022-01-30 Lightle, [facility] 04:41:00 [facility] PHOSPHORUS 2022-01-30 Lightle, [facility]ando [facility] 04:41:00 [facility] CBC W/PLT COUNT & AUTO 2022-01-30 Lightle, Mando [facility] DIFFERENTIAL 04:41:00 [facility] POCT-GLUCOSE METER 2022-01-[address] [facility] 20:49:00 [facility] TISSUE EXAM 2022-01-29 Hicks-Luis, [facility] 09:30:00 [facility] ABORH, MANUAL 2022-01-[address] [facility] 09:06:00 [facility] TYPE AND SCREEN, AUTOMATED 2022-01-[address] [facility] 08:08:00 [facility] ROBOTIC LAPAROSCOPY,LONGITUDINAL 2022-01-29 Hicks-Luis, [facility] SLEEVE GASTRECTOMY 07:45:00 [facility] PROCEDURE W/ DAVINCI XI 2022-01-29 Hicks-Janelle, [facility] 07:45:00 [facility] GASTRECTOMY, SLEEVE, LAPAROSCOPIC 2022-01-29 Hicks-Luis, [facility] 07:30:00 [facility] POCT , URINE 2022-01-[address] [facility] 06:40:00 [facility] PERMANENT LAB REPORT - SCAN 2022-01-29 Provider, Default [facility] 00:00:00 [facility] ECG 12-LEAD 2022-01-01 Unknown, Hl7 [facility] 11:39:05 [facility] ECG 12-LEAD 2022-01-01 Unknown, Hl7 [facility] 11:39:05 [facility] ECG 12-LEAD 2022-01-01 Unknown, Hl7 [facility] 11:39:05 [facility] POCT MOLECULAR FLU 2021-12-31 [facility] o f 15:25:00 Richelle [facility] POCT MOLECULAR STREP 2021-12-31 [facility] of 15:21:00 J [facility] SLEEP EQUIPMENT DOWNLOAD 2021-12-07 [facility] 09:16:48 Medicine CPAP MACHINE 2021-07-27 [facility] o f 00:00:00 Medicine POLYSOMNOGRAPHY 2021-06-[address] [facility] 22:16:16 [facility] POLYSOMNOGRAPHY REPORT - SCAN 2021-06-14 Provider, Chemo [facility] 00:00:00 Scanning [facility] XR CHEST 2 VIEWS 2020-11-[address] [facility] 12:20:00 [facility] Esophagogastroduodenoscopy (Surg) [facility] Laparoscopic Cholecystectomy [facility] Plan of Care Planned Activity Planned Date Details Comments Source Future Scheduled 2024-03-22 Lipid panel (procedure) [facility] Test 00:00:00 [code = 73735281] Medical Ce nter Future Scheduled 2024-03-22 Lipid panel (procedure) [facility] Test 00:00:00 [code = 99961553] Medical Ce nter Future Scheduled 2024-03-22 Lipid panel (procedure) [facility] Test 00:00:00 [code = 79928389] Medical Ce nter Future Scheduled 2024-03-22 Lipid panel (procedure) [facility] Test 00:00:00 [code = 27731241] Medical Ce nter Future Scheduled 2024-03-22 Lipid panel (procedure) [facility] Test 00:00:00 [code = 99720406] Medical Ce nter Future Scheduled 2023-02-23 DTAP/TDAP/TD VACCINES [facility] 00:00:00 (2 - Td or Tdap) [code Medic al Center = DTAP/TDAP/TD VACCINES (2 - Td or Tdap)] Future Scheduled 2023-02-23 DTAP/TDAP/TD VACCINES [facility] 00:00:00 (2 - Td) [code = Medical [facility] DTAP/TDAP/TD VACCINES (2 - Td)] Future Scheduled 2023-02-23 DTAP/TDAP/TD VACCINES [facility] 00:00:00 (2 - Td or Tdap) [code Medic al Center = DTAP/TDAP/TD VACCINES (2 - Td or Tdap)] Future Scheduled 2023-02-23 DTAP/TDAP/TD VACCINES [facility] 00:00:00 (2 - Td or Tdap) [code Medic al Center = DTAP/TDAP/TD VACCINES (2 - Td or Tdap)] Future Scheduled 2023-02-23 DTAP/TDAP/TD VACCINES [facility] 00:00:00 (2 - Td or Tdap) [code Medic al Center = DTAP/TDAP/TD VACCINES (2 - Td or Tdap)] Future Scheduled 2023-02-23 DTAP/TDAP/TD VACCINES [facility] 00:00:00 (2 - Td or Tdap) [code Medic al Center = DTAP/TDAP/TD VACCINES (2 - Td or Tdap)] Future Scheduled 2023-02-23 DTAP/TDAP/TD VACCINES [facility] 00:00:00 (2 - Td or Tdap) [code Medic al Center = DTAP/TDAP/TD VACCINES (2 - Td or Tdap)] Future Scheduled 2023-02-23 DTAP/TDAP/TD VACCINES [facility] 00:00:00 (2 - Td or Tdap) [code Medic al Center = DTAP/TDAP/TD VACCINES (2 - Td or Tdap)] Future Scheduled 2023-02-23 DTAP/TDAP/TD VACCINES [facility] 00:00:00 (2 - Td or Tdap) [code Medic al Center = DTAP/TDAP/TD VACCINES (2 - Td or Tdap)] Future Scheduled 2023-02-23 DTAP/TDAP/TD VACCINES [facility] 00:00:00 (2 - Td or Tdap) [code Medic al Center = DTAP/TDAP/TD VACCINES (2 - Td or Tdap)] Future Scheduled 2023-02-23 DTAP/TDAP/TD VACCINES [facility] 00:00:00 (2 - Td or Tdap) [code Medic al Center = DTAP/TDAP/TD VACCINES (2 - Td or Tdap)] Future Scheduled 2023-01-[address] [facility] Test 00:00:00 [facility] Screening (12+) [code = Tobacco Cessation Counseling and Screening (12+)] Future Scheduled 2023-01-[address] [facility] Test 00:00:00 [facility] r Screening (12+) [code = Tobacco Cessation Counseling and Screening (12+)] Future Scheduled 2023-01-[address] [facility] Test 00:00:00 [facility] Medical Cent[facility] r Screening (12+) [code = Tobacco Cessation Counseling and Screening (12+)] Future Scheduled 2023-01-[address] [facility] Test 00:00:00 Counseling and Medical Cente r Screening (12+) [code = Tobacco Cessation Counseling and Screening (12+)] Future Scheduled 2022-03-07 MRI BRAIN WO CONTRAST Expected: [facility] Test 00:00:00 [code = 52932-4] 03/07/2022, of Medicine Expires: 02/21/2023 Future Scheduled 2022-03-07 MRA HEAD WO CONTRAST Expected: [facility] [employer] Test 00:00:00 [code = 69695-3] 03/07/2022, of Medicine Expires: 02/21/2023 Future Scheduled 2022-02-21 Pneumococcal Combined [facility] Test 11:09:48 (1 - PCV) [code = of Medicin e Pneumococcal Combined (1 - PCV)] Future Scheduled 2022-02-21 HPV VACCINE (1 - 2-dose [facility] Test 11:09:48 series) [code = HPV of Medic ine VACCINE (1 - 2-dose series)] Future Scheduled 2022-02-21 Hepatitis C screening [facility] Test 11:09:48 (procedure) [code = of Medic ine [id number]] Future Scheduled 2022-02-21 Human immunodeficiency [facility] Test 11:09:48 virus screening of Medicine (procedure) [code = 837079652] Future Scheduled 2022-02-21 COVID-19 Vaccine (3 - [facility] Test 11:09:48 Booster for Pfizer of Medici ne series) [code = COVID-19 Vaccine (3 - Booster for Pfizer series)] Future Scheduled 2022-02-21 FLU VACCINE > 6 MONTHS [facility] Test 11:09:48 [code = FLU VACCINE > 6 of M edicine MONTHS] Future Scheduled 2022-02-21 BMI FOLLOW UP PLAN [employer] Test 11:09:48 [code = BMI FOLLOW UP of Med icine PLAN] Future Scheduled 2022-02-21 TETANUS SHOT (ADULT) [place] [employer] [facility] 11:09:48 [code = TETANUS SHOT of Medi cine (ADULT)] Future Scheduled 2022-02-21 Screening for malignant [place] Test 11:09:48 neoplasm of cervix of Medici ne (procedure) [code = 027219745] Future Scheduled 2022-02-19 Pneumococcal Combined [employer] [facility] 12:15:55 (1 - PCV) [code = of Medicin e Pneumococcal Combined (1 - PCV)] Future Scheduled 2022-02-19 HPV VACCINE (1 - 2-dose [facility] Test 12:15:55 series) [code = HPV of Medic ine VACCINE (1 - 2-dose series)] Future Scheduled 2022-02-19 Hepatitis C screening [employer] [facility] 12:15:55 (procedure) [code = of Medic ine 207414422] Future Scheduled 2022-02-19 [facility] 12:15:55 virus screening of Medicine (procedure) [code = 943648513] Future Scheduled 2022-02-19 COVID-19 Vaccine (3 - [employer] [facility] 12:15:55 Booster for Pfizer of Medici ne series) [code = COVID-19 Vaccine (3 - Booster for Pfizer series)] Future Scheduled 2022-02-19 FLU VACCINE > 6 MONTHS [facility] 12:15:55 [code = FLU VACCINE > 6 of M edicine MONTHS] Future Scheduled 2022-02-19 BMI FOLLOW UP PLAN [employer] [facility] 12:15:55 [code = BMI FOLLOW UP of Med icine PLAN] Future Scheduled 2022-02-19 TETANUS SHOT (ADULT) [place] [employer] [facility] 12:15:55 [code = TETANUS SHOT of Medi cine (ADULT)] Future Scheduled 2022-02-19 Screening for malignant [facility] Test 12:15:55 neoplasm of cervix of Medici ne (procedure) [code = 064254545] Future Scheduled 2022-01-18 BMI FOLLOW UP PLAN [employer] Test 14:16:15 [code = BMI FOLLOW UP of Med icine PLAN] Future Scheduled 2022-01-18 Pneumococcal Combined [employer] [facility] 14:15:02 (1 - PCV) [code = of Medicin e Pneumococcal Combined (1 - PCV)] Future Scheduled 2022-01-18 HPV VACCINE (1 - 2-dose [facility] Test 14:15:02 series) [code = HPV of Medic ine VACCINE (1 - 2-dose series)] Future Scheduled 2022-01-18 Hepatitis C screening [facility] Test 14:15:02 (procedure) [code = of Medic ine 166930415] Future Scheduled 2022-01-18 Human immunodeficiency [facility] Test 14:15:02 virus screening of Medicine (procedure) [code = 259001828] Future Scheduled 2022-01-18 COVID-19 Vaccine (3 - [employer] [facility] 14:15:02 Booster for Pfizer of Medici ne series) [code = COVID-19 Vaccine (3 - Booster for Pfizer series)] Future Scheduled 2022-01-18 FLU VACCINE > 6 MONTHS [facility] 14:15:02 [code = FLU VACCINE > 6 of M edicine MONTHS] Future Scheduled 2022-01-18 TETANUS SHOT (ADULT) [place] [facility] Test 14:15:02 [code = TETANUS SHOT of Medi cine (ADULT)] Future Scheduled 2022-01-18 Screening for malignant [facility] Test 14:15:02 neoplasm of cervix of Medici ne (procedure) [code = 799156535] Future Scheduled 2022-01-12 Pneumococcal Combined [facility] Test 10:59:23 (1 - PCV) [code = of Medicin e Pneumococcal Combined (1 - PCV)] Future Scheduled 2022-01-12 HPV VACCINE (1 - 2-dose [facility] Test 10:59:23 series) [code = HPV of Medic ine VACCINE (1 - 2-dose series)] Future Scheduled 2022-01-12 Hepatitis C screening [facility] Test 10:59:23 (procedure) [code = of Medic ine 669618042] Future Scheduled 2022-01-12 Human immunodeficiency [facility] 10:59:23 virus screening of Medicine (procedure) [code = 484603716] Future Scheduled 2022-01-12 COVID-19 Vaccine (3 - [facility] [employer] Test 10:59:23 Booster for Pfizer of Medici ne series) [code = COVID-19 Vaccine (3 - Booster for Pfizer series)] Future Scheduled 2022-01-12 FLU VACCINE > 6 MONTHS [employer] [facility] 10:59:23 [code = FLU VACCINE > 6 of M edicine MONTHS] Future Scheduled 2022-01-12 BMI FOLLOW UP PLAN [facility] Test 10:59:23 [code = BMI FOLLOW UP of Med icine PLAN] Future Scheduled 2022-01-12 TETANUS SHOT (ADULT) [facility] Test 10:59:23 [code = TETANUS SHOT of Medi cine (ADULT)] Future Scheduled 2022-01-12 Screening for malignant [facility] Test 10:59:23 neoplasm of cervix of Medici ne (procedure) [code = 548394694] Future Scheduled 2021-11-23 INFLUENZA VACCINE (#1) [facility] 00:00:00 [code = INFLUENZA Medical Ce nter VACCINE (#1)] Future Scheduled 2021-11-23 INFLUENZA VACCINE (#1) [facility] 00:00:00 [code = INFLUENZA Medical Ce nter VACCINE (#1)] Future Scheduled 2021-11-23 INFLUENZA VACCINE (#1) [facility] 00:00:00 [code = INFLUENZA Medical Ce nter VACCINE (#1)] Future Scheduled 2021-11-23 INFLUENZA VACCINE (#1) [facility] 00:00:00 [code = INFLUENZA Medical Ce nter VACCINE (#1)] Future Scheduled 2021-11-23 INFLUENZA VACCINE (#1) [facility] 00:00:00 [code = INFLUENZA Medical Ce nter VACCINE (#1)] Future Scheduled 2021-11-23 INFLUENZA VACCINE (#1) [facility] 00:00:00 [code = INFLUENZA Medical Ce nter VACCINE (#1)] Future Scheduled 2021-11-23 INFLUENZA VACCINE (#1) [facility] 00:00:00 [code = INFLUENZA Medical Ce nter VACCINE (#1)] Future Scheduled 2021-08-25 COVID-19 VACCINE (3 - [facility] 00:00:00 Booster for Pfizer Medical C enter series) [code = COVID-19 VACCINE (3 - Booster for Pfizer series)] Future Scheduled 2021-08-25 COVID-19 VACCINE (3 - [facility] Test 00:00:00 Booster for Pfizer Medical C enter series) [code = COVID-19 VACCINE (3 - Booster for Pfizer series)] Future Scheduled 2021-08-25 COVID-19 VACCINE (3 - [facility] 00:00:00 Booster for Pfizer Medical C enter series) [code = COVID-19 VACCINE (3 - Booster for Pfizer series)] Future Scheduled 2021-08-25 COVID-19 VACCINE (3 - [facility] 00:00:00 Booster for Pfizer Medical C enter series) [code = COVID-19 VACCINE (3 - Booster for Pfizer series)] Future Scheduled 2021-08-25 COVID-19 VACCINE (3 - [facility] 00:00:00 Booster for Pfizer Medical C enter series) [code = COVID-19 VACCINE (3 - Booster for Pfizer series)] Future Scheduled 2021-08-25 COVID-19 VACCINE (3 - [facility] 00:00:00 Booster for Pfizer Medical C enter series) [code = COVID-19 VACCINE (3 - Booster for Pfizer series)] Future Scheduled 2021-08-25 COVID-19 VACCINE (3 - [facility] 00:00:00 Booster for Pfizer Medical C enter series) [code = COVID-19 VACCINE (3 - Booster for Pfizer series)] Future Scheduled 2021-06-07 Pneumococcal Combined [facility] Test 10:47:54 (1 of 4 - PCV13) [code of Me dicine = Pneumococcal Combined (1 of 4 - PCV13)] Future Scheduled 2021-06-07 HPV VACCINE (1 - 2-dose [facility] Test 10:47:54 series) [code = HPV of Medic ine VACCINE (1 - 2-dose series)] Future Scheduled 2021-06-07 Hepatitis C screening [facility] Test 10:47:54 (procedure) [code = of Medic ine 219153355] Future Scheduled 2021-06-07 Human immunodeficiency [facility] Test 10:47:54 virus screening of Medicine (procedure) [code = 929089000] Future Scheduled 2021-06-07 Screening for malignant [facility] Test 10:47:54 neoplasm of cervix of Medici ne (procedure) [code = 461570422] Future Scheduled 2021-06-07 FLU VACCINE > 6 MONTHS Postponed from [facility] Test 10:47:54 [code = FLU VACCINE > 6 10/23/2020 of M edicine MONTHS] (Postpone Reason: Patient declined today) Future Scheduled 2021-06-07 COVID-19 Vaccine (3 - [facility] [employer] [facility] 10:47:54 Booster for Pfizer of Medici ne series) [code = COVID-19 Vaccine (3 - Booster for Pfizer series)] Future Scheduled 2021-06-07 BMI FOLLOW UP PLAN [employer] Test 10:47:54 [code = BMI FOLLOW UP of Med icine PLAN] Future Scheduled 2021-06-07 TETANUS SHOT (ADULT) [place] [employer] [facility] 10:47:54 [code = TETANUS SHOT of Medi cine (ADULT)] Future Scheduled 2021-05-19 Pneumococcal Combined [employer] [facility] 16:29:29 (1 of 4 - PCV13) [code of Me dicine = Pneumococcal Combined (1 of 4 - PCV13)] Future Scheduled 2021-05-19 HPV VACCINE (1 - 2-dose [facility] Test 16:29:29 series) [code = HPV of Medic ine VACCINE (1 - 2-dose series)] Future Scheduled 2021-05-19 Hepatitis C screening [employer] [facility] 16:29:29 (procedure) [code = of Medic ine 630732830] Future Scheduled 2021-05-19 Human immunodeficiency [facility] [employer] Test 16:29:29 virus screening of Medicine (procedure) [code = 237343876] Future Scheduled 2021-05-19 Screening for malignant [facility] Test 16:29:29 neoplasm of cervix of Medici ne (procedure) [code = 510967681] Future Scheduled 2021-05-19 FLU VACCINE > 6 MONTHS [employer] [facility] 16:29:29 [code = FLU VACCINE > 6 of M edicine MONTHS] Future Scheduled 2021-05-19 COVID-19 Vaccine (3 - [facility] [employer] [facility] 16:29:29 Booster for Pfizer of Medici ne series) [code = COVID-19 Vaccine (3 - Booster for Pfizer series)] Future Scheduled 2021-05-19 BMI FOLLOW UP PLAN [employer] Test 16:29:29 [code = BMI FOLLOW UP of Med icine PLAN] Future Scheduled 2021-05-19 TETANUS SHOT (ADULT) [place] [employer] [facility] 16:29:29 [code = TETANUS SHOT of Medi cine (ADULT)] Future Scheduled 2021-05-04 COVID-19 Vaccine (3 - [employer] [facility] 15:58:34 Booster for Pfizer of Medici ne series) [code = COVID-19 Vaccine (3 - Booster for Pfizer series)] Future Scheduled 2021-05-04 BMI FOLLOW UP PLAN [employer] [facility] 15:58:34 [code = BMI FOLLOW UP of Med icine PLAN] Future Scheduled 2021-05-04 TETANUS SHOT (ADULT) [place] [facility] Test 15:58:34 [code = TETANUS SHOT of Medi cine (ADULT)] Future Scheduled 2021-05-04 Pneumococcal Combined [employer] [facility] 15:58:34 (1 of 4 - PCV13) [code of Me dicine = Pneumococcal Combined (1 of 4 - PCV13)] Future Scheduled 2021-05-04 HPV VACCINE (1 - 2-dose [facility] Test 15:58:34 series) [code = HPV of Medic ine VACCINE (1 - 2-dose series)] Future Scheduled 2021-05-04 Hepatitis C screening [facility] Test 15:58:34 (procedure) [code = of Medic ine 915161034] Future Scheduled 2021-05-04 Human immunodeficiency [facility] [employer] Test 15:58:34 virus screening of Medicine (procedure) [code = 253011831] Future Scheduled 2021-05-04 Screening for malignant [facility] Test 15:58:34 neoplasm of cervix of Medici ne (procedure) [code = 383662044] Future Scheduled 2021-05-04 FLU VACCINE > 6 MONTHS [facility] 15:58:34 [code = FLU VACCINE > 6 of M edicine MONTHS] Future Scheduled 2021-03-[address] [facility] Test 00:00:00 (12+) [code = Medical Center DEPRESSION SCREENING (12+)] Future Scheduled 2021-03-[address] [facility] Test 00:00:00 (12+) [code = Medical Center DEPRESSION SCREENING (12+)] Future Scheduled 2021-03-[address] [facility] Test 00:00:00 (12+) [code = Medical Center DEPRESSION SCREENING (12+)] Future Scheduled 2021-03-22 Pneumococcal Combined [employer] [facility] 08:22:43 (1 of 4 - PCV13) [code of Me dicine = Pneumococcal Combined (1 of 4 - PCV13)] Future Scheduled 2021-03-22 HPV VACCINE (1 - 2-dose [facility] Test 08:22:43 series) [code = HPV of Medic ine VACCINE (1 - 2-dose series)] Future Scheduled 2021-03-22 Hepatitis C screening Ba [facility] Test 08:22:43 (procedure) [code = of Medic ine 131855971] Future Scheduled 2021-03-22 Human immunodeficiency [facility] Test 08:22:43 virus screening of Medicine (procedure) [code = 182214840] Future Scheduled 2021-03-22 Screening for malignant [facility] Test 08:22:43 neoplasm of cervix of Medici ne (procedure) [code = 281914788] Future Scheduled 2021-03-22 FLU VACCINE > 6 MONTHS [facility] Test 08:22:43 [code = FLU VACCINE > 6 of M edicine MONTHS] Future Scheduled 2021-03-22 COVID-19 Vaccine (2 - Ba [facility] Test 08:22:43 Pfizer 2-dose series) of Med icine [code = COVID-19 Vaccine (2 - Pfizer 2-dose series)] Future Scheduled 2021-03-22 BMI FOLLOW UP PLAN [facility] Test 08:22:43 [code = BMI FOLLOW UP of Med icine PLAN] Future Scheduled 2021-03-22 TETANUS SHOT (ADULT) [facility] Test 08:22:43 [code = TETANUS SHOT of Medi cine (ADULT)] Future Scheduled 2021-03-16 CBC W/O DIFF W PLT Ordered: [facility] Test 15:02:34 [code = 6690-2] 03/16/2021 of Medicine Future Scheduled 2021-03-16 COMPREHENSIVE METABOLIC Ordered: [facility] Test 15:02:34 PANEL [code = 28603-6] 03/16/2021 of Me dicine Future Scheduled 2021-03-16 IRON, TIBC AND FERRITIN Ordered: [facility] Test 15:02:34 PANEL [code = NOCPT] 03/16/2021 of Medi cine Future Scheduled 2021-03-16 CALCIUM [code = Ordered: [facility] [employer] Test 15:02:34 52378-3] 03/16/2021 of Medicine Future Scheduled 2021-03-16 ALBUMIN [code = 1751-7] Ordered: [facility] Test 15:02:34 03/16/2021 of Medicine Future Scheduled 2021-03-16 LIPID PANEL [code = Ordered: [facility] or [employer] Test 15:02:34 49696-5] 03/16/2021 of Medicine Future Scheduled 2021-03-16 VITAMIN B1 [code = Ordered: [facility] [employer] Test 15:02:34 40135-4] 03/16/2021 of Medicine Future Scheduled 2021-03-16 VITAMIN B6 [code = Ordered: [facility] [employer] Test 15:02:34 03100-6] 03/16/2021 of Medicine Future Scheduled 2021-03-16 VITAMIN B12 [code = Ordered: [place] [employer] Test 15:02:34 2132-9] 03/16/2021 of Medicine Future Scheduled 2021-03-16 VITAMIN A [code = Ordered: [facility] Test 15:02:34 2923-1] 03/16/2021 of Medicine Future Scheduled 2021-03-16 VITAMIN D 1,25 Ordered: [facility] Test 15:02:34 DIHYDROXY [code = 03/16/2021 of Medicin e 1649-3] Future Scheduled 2021-03-16 FOLATE [code = 2284-8] Ordered: [facility] [employer] Test 15:02:34 03/16/2021 of Medicine Future Scheduled 2021-03-16 HEMOGLOBIN A1C [code = Ordered: [facility] [employer] Test 15:02:34 4548-4] 03/16/2021 of Medicine Future Scheduled 2021-03-16 PROTIME-INR [code = Ordered: [facility] or [employer] Test 15:02:34 5902-2] 03/16/2021 of Medicine Future Scheduled 2021-03-16 URINALYSIS AUTO W/SCOPE Ordered: [facility] [employer] Test 15:02:34 [code = 55834-7] 03/16/2021 of Medicine Future Scheduled 2020-11-23 INFLUENZA VACCINE (#1) [facility] 00:[facility]00 [code = INFLUENZA Medical Ce nter VACCINE (#1)] Future Scheduled 2020-11-23 INFLUENZA VACCINE (#1) [facility] 00:00:00 [code = INFLUENZA Medical Ce nter VACCINE (#1)] Future Scheduled 2020-11-23 INFLUENZA VACCINE (#1) [facility] 00:00:00 [code = INFLUENZA Medical Ce nter VACCINE (#1)] Future Scheduled 2020-11-23 INFLUENZA VACCINE (#1) [facility] 00:00:00 [code = INFLUENZA Medical Ce nter VACCINE (#1)] Future Scheduled 2020-03-[address] [facility] Test 00:00:00 (12+) [code = Medical Center DEPRESSION SCREENING (12+)] Future Scheduled 2020-03-[address] [facility] Test 00:00:00 (12+) [code = Medical Center DEPRESSION SCREENING (12+)] Future Scheduled 2020-03-[address] [facility] Test 00:00:00 (12+) [code = Medical Center DEPRESSION SCREENING (12+)] Future Scheduled 2020-03-[address] [facility] Test 00:00:00 (12+) [code = Medical Center DEPRESSION SCREENING (12+)] Future Scheduled 2016-06-11 Screening for malignant [facility] Test 00:00:00 neoplasm of cervix Medical C enter (procedure) [code = 313790676] Future Scheduled 2016-06-11 Screening for malignant [facility] Test 00:00:00 neoplasm of cervix Medical C enter (procedure) [code = 615477946] Future Scheduled 2016-06-11 Screening for malignant [facility] Test 00:00:00 neoplasm of cervix Medical C enter (procedure) [code = 786878684] Future Scheduled 2016-06-11 Screening for malignant [facility] Test 00:00:00 neoplasm of cervix Medical C enter (procedure) [code = 841094524] Future Scheduled 2016-06-11 Screening for malignant [facility] Test 00:00:00 neoplasm of cervix Medical C enter (procedure) [code = 015089595] Future Scheduled 2016-06-11 Screening for malignant [facility] Test 00:00:00 neoplasm of cervix Medical C enter (procedure) [code = 619233431] Future Scheduled 2016-06-11 Screening for malignant [facility] Test 00:00:00 neoplasm of cervix Medical C enter (procedure) [code = 577226017] Future Scheduled 2016-06-11 Screening for malignant [facility] Test 00:00:00 neoplasm of cervix Medical C enter (procedure) [code = 329262486] Future Scheduled 2016-06-11 Screening for malignant [facility] Test 00:00:00 neoplasm of cervix Medical C enter (procedure) [code = 396861044] Future Scheduled 2016-06-11 Screening for malignant [facility] Test 00:00:00 neoplasm of cervix Medical C enter (procedure) [code = 438200892] Future Scheduled 2016-06-11 Screening for malignant [facility] Test 00:00:00 neoplasm of cervix Medical C enter (procedure) [code = 909971261] Future Scheduled 2013-06-11 HEPATITIS C [facility]CRE[facility]ING [facility] 00:00:00 [code = HEPATITIS C Medical Center SCREENING] Future Scheduled 2013-06-11 HEPATITIS C [facility] 00:00:00 [code = HEPATITIS C Medical Center SCREENING] Future Scheduled 2013-06-11 HEPATITIS C [facility] 00:00:00 [code = HEPATITIS C Medical Center SCREENING] Future Scheduled 2013-06-11 HEPATITIS C [facility] 00:00:00 [code = HEPATITIS C Medical Center SCREENING] Future Scheduled 2013-06-11 HEPATITIS C [facility] 00:00:00 [code = HEPATITIS C Medical Center SCREENING] Future Scheduled 2013-06-11 HEPATITIS C [facility] 00:00:00 [code = HEPATITIS C Medical Center SCREENING] Future Scheduled 2013-06-11 [facility]PATITIS C [facility] 00:00:00 [code = HEPATITIS C Medical Center SCREENING] Future Scheduled 2013-06-11 [facility]PATITIS C [facility] 00:00:00 [code = HEPATITIS C Medical Center SCREENING] Future Scheduled 2013-06-11 HEPATITIS C [facility] 00:00:00 [code = HEPATITIS C Medical Center SCREENING] Future Scheduled 2013-06-11 HEPATITIS C [facility] 00:00:00 [code = HEPATITIS C Medical Center SCREENING] Future Scheduled 2013-06-11 [facility]ITIS C [facility] 00:00:00 [code = HEPATITIS C Medical Center SCREENING] Future Scheduled 2007 COVID-19 VACCINE (1) [facility] Test 00:00:00 [code = COVID-[address] VACCINE (1)] Future Scheduled 2007 COVID-19 VACCINE (1) [facility] Test 00:00:00 [code = COVID-[address] VACCINE (1)] Future Scheduled 2007 COVID-19 VACCINE (1) [facility] Test 00:00:00 [code = COVID-[address] VACCINE (1)] Future Scheduled 2007 COVID-19 VACCINE (1) [facility] Test 00:00:00 [code = COVID-[address] VACCINE (1)] Future Scheduled 2001-06-[address] [facility] Test 00:00:00 0-64 YRS (1 of 1 - Medical C enter PPSV23) [code = PNEUMOCOCCAL VACCINE 0-64 YRS (1 of 1 - PPSV23)] Future Scheduled 2001-06-[address] [facility] Test 00:00:00 0-64 YRS (1 - PCV) Medical C enter [code = PNEUMOCOCCAL VACCINE 0-64 YRS (1 - PCV)] Future Scheduled 2001-06-[address] [facility] Test 00:00:00 0-64 YRS (1 - PCV) Medical C enter [code = PNEUMOCOCCAL VACCINE 0-64 YRS (1 - PCV)] Future Scheduled 2001-06-[address] [facility] Test 00:00:00 0-64 YRS (1 of 2 - Medical C enter PPSV23) [code = PNEUMOCOCCAL VACCINE 0-64 YRS (1 of 2 - PPSV23)] Future Scheduled 2001-06-[address] [facility] Test 00:00:00 0-64 YRS (1 - PCV) Medical C enter [code = PNEUMOCOCCAL VACCINE 0-64 YRS (1 - PCV)] Future Scheduled 2001-06-[address] [facility] Test 00:00:00 0-64 YRS (1 - PCV) Medical C enter [code = PNEUMOCOCCAL VACCINE 0-64 YRS (1 - PCV)] Future Scheduled 2001-06-[address] [facility] Test 00:00:00 0-64 YRS (1 of 2 - Medical C enter PPSV23) [code = PNEUMOCOCCAL VACCINE 0-64 YRS (1 of 2 - PPSV23)] Future Scheduled 2001-06-[address] [facility] Test 00:00:00 0-64 YRS (1 of 2 - Medical C enter PPSV23) [code = PNEUMOCOCCAL VACCINE 0-64 YRS (1 of 2 - PPSV23)] Future Scheduled 2001-06-[address] [facility] Test 00:00:00 0-64 YRS (1 - PCV) Medical C enter [code = PNEUMOCOCCAL VACCINE 0-64 YRS (1 - PCV)] Future Scheduled COVID-19 Vaccine [facility] Test Evaluation [code = of Medici ne COVID-19 Vaccine Evaluation] Future Scheduled HPV VACCINE (1 - 2-dose [facility] Test series) [code = HPV of Medic ine VACCINE (1 - 2-dose series)] Future Scheduled BMI FOLLOW UP PLAN [facility] Test [code = BMI FOLLOW UP of Med icine PLAN] Future Scheduled HEPATITIS C SCREENING [employer] [facility] [code = HEPATITIS C of Medic ine SCREENING] Future Scheduled HIV SCREENING [code = [employer] [facility] HIV SCREENING] of Medicine Future Scheduled CERVICAL CANCER [facility] ollege Test SCREENING 3 YEAR FOLLOW of M edicine UP [code = CERVICAL CANCER SCREENING 3 YEAR FOLLOW UP] Future Scheduled FLU VACCINE > 6 MONTHS [employer] Test [code = FLU VACCINE > 6 of M edicine MONTHS] Future Scheduled TETANUS SHOT (ADULT) [facility] [place] [employer] Test [code = TETANUS SHOT of Medi cine (ADULT)] Encounters Start End Encounter Admission Attending Care Care Encounter Source Date/Time Date/Time Type Type Clinicians Facility Department ID 2021-04-19 Outpatient Corky [facility] [id number] Common 12:28:44 Nithya [id number] [facility] 2021-04-19 Outpatient Inola [facility] [id number] Common 11:00:26 Nithya [id number] [facility] 2022-02-23 2022-02-23 Outpatient SALVADOR [facility] [id number] [facility] 00:00:00 00:00:00 Fahad DAVISON of Medicin e 2022-02-21 2022-02-21 Office CHRISTIAN VALDEZ [facility] [id number] [id number] [facility] 10:40:33 16:49:20 Visit AMBULATOR 350.1.13.21 College Y 0.2.7.2.686 of [id number] Medi camelia 800 e 2022-02-13 2022-02-13 Office LUCERO [facility] [id number] [facility] 14:19:03 15:24:21 Visit SANTIAGO MARTINEZ AMBULATOR 350.1.13.21 College Y 0.2.7.2.686 [id number] [facility] camelia 805 e 2022-02-01 2022-02-01 Office Alyse De Leon [facility] 1.2.840.114 [id number] Univers 09:40:00 10:00:00 Visit MULTISPEC 350.1.13.10 ity zac WONG 4.2.7.2.686 [facility] [id number] [facility] AND [address] DIABETES CLINIC 2022-02-01 2022-02-01 Outpatient R ALYSE DE LEON [facility] [id number] Univers 09:40:00 09:40:00 ALYSE DE LEON it y of [facility] 2022-01-29 2022-01-30 [facility] [id number] 05:35:00 18:49:00 Encounter Santiago martinez [facility] 2022-01-29 2022-01-30 Outpatient [facility] Surgery [id number] [facility] 05:35:00 18:49:00 SANTIAGO MARTINEZ 2022-01-29 2022-01-30 [facility] [id number] 05:35:00 18:49:00 Encounter Santiago martinez [facility] 2022-01-29 2022-01-29 Outpatient [facility] [id number] [facility] 05:35:00 23:59:00 Sawyer 2022-01-29 2022-01-29 Surgery [facility] [id number] 08:00:00 10:20:00 Santiago martinez [facility] 2022-01-29 2022-01-29 Surgery [facility] [id number] 08:00:00 10:20:00 Santiago martinez [facility] 2022-01-29 2022-01-29 Anesthesia Blanca Holland [facility] [id number] [facility] 07:44:00 10:18:00 Event Christian Simpson [facility] 2022-01-29 2022-01-29 Anesthesia Blanca Holland Shavon [facility] [id number] [facility] 07:44:00 10:18:00 Event Christian Simpson [facility] 2022-01-24 2022-01-24 Outpatient LUCERO [facility] [id number] SLE 17:22:14 17:22:14 SANTIAGO MARTINEZ 2022-01-19 2022-01-19 Outpatient [facility] [id number] SLE 15:49:26 15:49:26 2022-01-19 2022-01-19 [facility] [id number] 14:50:00 14:50:00 Encounter [facility] 2022-01-19 2022-01-19 [facility] [id number] 14:50:00 14:50:00 Encounter [facility] 2022-01-19 2022-01-[address] [facility] [id number] [facility] 00:00:00 00:00:00 [facility] 2022-01-19 2022-01-[address] [facility] [id number] [facility] 00:00[facility]00 00:00:00 [facility] 2022-01-18 2022-01-18 Office LesleyWhiteclaywinnie [facility] 1.2.840.114 [id number] [facility] 13:30:00 15:17:21 Visit Santiago martinez AMBULATOR 350.1.13.21 College G Y 0.2.7.2.686 of [id number] [facility] camelia 805 e 2022-01-12 2022-01-12 Office Deya [facility] 1.2.840.114 [id number] [facility] 11:00:00 12:00:00 Visit Erin AMBULATOR 350.1.13.21 College Y 0.2.7.2.686 of [id number] [facility] camelia 810 e 2022-01-01 2022-01-01 [facility] [id number] 12:30:00 12:30:00 Encounter Santiago martinez [facility] 2022-01-01 2022-01-01 [facility] [id number] 12:30:00 12:30:00 Encounter Santiago martinez [facility] 2022-01-01 2022-01-01 Orders [facility] [id number] 00:00:00 00:00:00 Only [facility] 2022-01-01 2022-01-01 Orders [facility] [id number] 00:00:00 00:00:00 Only [facility] 2021-12-31 2021-12-31 Urgent [facility] 1.2.840.114 [id number] Univers 10:20:00 10:40:00 Care [facility] 350.1.13.10 marito frank MAY 4.2.7.2.686 Justino as YOLIE?BLEA [id number] Me [address] MEDICAL OFFICE BUILDING 2021-12-31 2021-12-31 [facility] [id number] Univers 10:20:00 10:20:00 NATALIA devi o debra [facility] 2021-12-29 2021-12-29 [facility] [id number] 11:00:00 11:00:00 Encounter [facility] 2021-12-29 2021-12-29 Outpatient EL [facility] [id number] [facility] 00:00:00 00:00:00 2021-12-14 2021-12-14 Outpatient SHREYAS ORTIZ [facility] [id number] [facility] 11:29:41 11:40:44 AHMET ac of Medicin e 2021-12-07 2021-12-07 Outpatient SALVADOR [facility] [id number] [facility] 08:52:56 09:00:33 Fahad DAVISON of Medicin e 2021-11-23 2021-11-23 Outpatient LUCERO [facility] [id number] [facility] 08:40:22 08:51:19 SANTIAGO MARTINEZ of Medicin e 2021-11-22 2021-11-22 Outpatient ALYSE NULL [facility] [id number] [facility] 09:00:00 09:28:44 ALYSE DE LEON [facility] 2021-11-22 2021-11-22 Office Alyse De Leon [facility] 1.2.840.114 [id number] [facility] 09:00:00 09:28:44 Visit MULTISPEC 350.1.13.10 ity of IALTY 4.2.7.2.686 [facility] s [place] [id number] [address] DIABETES CLINIC 2021-11-15 2021-11-15 Outpatient DEYA, [facility] [id number] [facility] 13:57:27 14:19:44 ERIN Rowan e of Medicin e 2021-10-19 2021-10-19 Outpatient DEYA, [facility] [id number] [facility] 11:31:33 12:09:18 ERIN Rowan e of Medicin e 2021-10-09 2021-10-09 [facility]71 [place] 11:47:00 11:47:00 DEMARCUS Jaeger [facility] Outre h Program 2021-09-12 2021-09-12 Outpatient CHRISTINE, [facility] [id number] [facility] 15:12:26 15:27:17 ERIN Rowan e of Medicin e 2021-09-06 2021-09-06 Outpatient Joesph ALONSO [facility] [id number] [facility] 09:45:00 09:45:00 DEMARCUS devi [facility] 2021-08-22 2021-08-22 [facility] [id number] [facility] 00:00:00 00:00:00 Kirti MARTINEZ 350.1.13.10 ity of IALTY 4.2.7.2.686 [facility] [id number] [address] DIABETES CLINIC 2021-08-11 2021-08-11 [address] [id number] [facility] 00:00:00 00:00:00 Kirti MARTINEZ 350.1.13.10 ity [place] [id number] [facility] AND [address] DIAB[facility]ES CLINIC 2021-08-09 2021-08-09 [facility] [id number] Univers 00:00:00 00:00:00 Kirti MARTINEZ 350.1.13.10 it[id number] [address] [facility] 2021-07-12 2021-07-12 Office Kirti Lala [facility] 1.2.840.11 [id number] Univers 10:45:00 11:31:54 Visit Demarcus Alonso 350.1.1 3.10 ity of IALTY 4.2.7.2.686 [facility] [place] [id number] [address] [facility]ES [facility]INIC 2021-07-12 2021-07-12 [facility] [id number] Univers 10:45:00 11:31:54 DEMARCUS devi [facility] 2021-07-12 2021-07-12 [facility] [id number] Univers 10:45:00 10:45:00 DEMARCUS devi [facility] 2021-07-06 2021-07-06 Outpatient [facility] [id number] [facility] 11:42:30 11:51:21 Fahad DAVISON Medicin e 2021-06-19 2021-06-19 Telephone [facility] [id number] Univers 00:00:00 00:00:00 Addy Pink MULTISPEC 350.1.13.10 it[id number] [address] [facility] 2021-06-14 2021-06-14 Outpatient [facility]OR [facility] SLE [id number] SLE 20:01:31 23:59:00 AMADEO DAVISON 2021-06-14 2021-06-14 [facility] Salvador [facility] [id number] [facility] 19:00:00 23:59:00 Encounter [facility] 2021-06-14 2021-06-[address] [facility] [id number] 19:00:00 23:59:00 Encounter AnaWayne zhou [facility] 2021-06-09 2021-06-09 OFFICE [facility] [id number] Co mmon 00:00:00 00:00:00 VISIT Juliano ESTAB PT - CHI LEVEL 1 [facility] 2021-06-07 2021-06-07 Office SHREYAS OLMOS 1.2.840.114 [id number] [facility] 10:35:18 17:02:46 Visit IVORY AMBULATOR 350.1.13.21 College Y 0.2.7.2.686 of [id number] Medi camelia 800 e 2021-05-31 2021-05-31 [facility] [id number] Univers 10:30:00 10:30:00 DEMARCUS devi [facility] 2021-05-26 2021-05-26 Outside [facility] [id number] 00:00:00 00:00:00 Orders [facility] 2021-05-26 2021-05-26 [facility]EL[facility] [id number] Co mmon 00:00:00 00:00:00 Spirit - [facility] 2021-05-26 2021-05-26 Outside [facility] [id number] 00:00:00 00:00:00 Orders [facility] 2021-05-22 2021-05-22 Outpatient FRANCO [facility] [id number] [facility] 08:16:41 08:22:26 Fahad DAVISON of Medicin e 2021-05-10 2021-05-10 Office SHREYAS SYKES 1.2.840.114 [id number] [facility] 13:41:07 15:22:22 Visit GENEVIEVE AMBULATOR 350.1.13.21 College Y 0.2.7.2.686 of [id number] Medi camelia 800 e 2021-05-04 2021-05-04 Office Christinemaría elena [facility] 1.2.840.114 [id number] [facility] 14:30:00 15:30:00 Visit Erin AMBULATOR 350.1.13.21 College Y 0.2.7.2.686 of [id number] [facility] camelia 810 e 2021-04-10 2021-04-10 OFFICE STLMLC STLMLC [id number] Co mmon 00:00:00 00:00:00 VISIT EST Spir it PT LEVEL 3 [facility] 2021-03-22 2021-03-22 (TEL) STLMLC STLMLC [id number] Co mmon 00:00:00 00:00:00 [facility] 2021-03-22 2021-03-22 OFFICE STLMLC STLMLC [id number] Co mmon 00:00:00 00:00:00 VISIT EST Spir it PT LEVEL 3 [facility] 2021-03-16 2021-03-16 Office [facility] [id number] [facility] 15:00:00 15:39:36 Visit Santiago martinez AMBULATOR [id number] College G [employer] [id number] of [id number] [facility] [place] 805 e 2021-02-21 2021-02-21 [place] - [id number] [place] 00:00:00 00:00:00 Demarcus Olgiun MD: [facility] [address], [place] [address] , Ph. [phone] 2021-02-07 2021-02-07 Outpatient IHDE_G [facility] [id number] [place] 04:59:00 04:59:00 1116 [facility] 2021-01-23 2021-01-23 Outpatient IHDE_G MMG MMG [id number] [place] 10:25:00 10:25:00 1101 [facility] 2021-01-17 2021-01-17 Joseph IHDE_G MMG [place] - [id number] [place] 00:00:00 00:00:00 Demarcus Santiago 1026 misti Duran MD: Medical Medica sherley [address] [place] [address] [address], surgery [place] [address] , Ph. [phone] 2020-12-28 2020-12-28 Outpatient IHDE_G MMG MMG [id number] [place] 09:33:00 09:33:00 1006 [facility] 2020-12-27 2020-12-27 Joseph IHDE_[place] MM[place] - [id number] [place] 00:00:00 00:00:00 Demarcus Santigao 100Brandt Olguin MD: Medical Medica [address], surgery [place] [address] , Ph. [phone] 2020-11-16 2020-11-16 Outpatient IHDE_G MMG [facility] [id number] [place] 05:51:00 05:51:00 0825 [facility] 2020-11-15 2020-11-15 Joseph IHDE_[place] MM[place] - [id number] [place] 00:00:00 00:00:00 Demarcus Santiago 0824 misti Duran MD: Medical Medica [address], [place] [address] , Ph. [phone] 2020-11-10 2020-11-10 Outpatient IHDE_G MMG [facility] [id number] [place] 12:12:00 12:12:00 0819 [facility] 2020-11-09 2020-11-09 [facility] Patrice, Brando [facility] [id number] [facility] 12:00:00 23:59:00 [facility] 2020-11-09 2020-11-09 Outpatient BRANDO IBRAHIM [facility] [id number] [facility] 12:36:38 14:54:20 [facility] 2020-11-09 2020-11-09 Outpatient BRANDO IBRAHIM [facility] [id number] [facility] 00:00:00 00:00:00 2020-11-08 2020-11-08 Outside Brando Ibrahim [facility] [id number] [facility] 00:00:00 00:00:00 [facility] 2020-11-01 2020-11-01 Telephone [facility] [id number] [facility] 00:00:00 00:00:00 Addy Pink MULTISPEC 350.1.13.10 ity of IALTY 4.2.7.2.[address] [facility] [place] [id number] [address] [facility] 2020-10-24 2020-10-24 Office [facility] 1.2.840.114 [id number] Univers 10:18:55 10:48:54 Visit Addy ROMEPEC 350.1.13.10 ity of IALTY 4.2.7.2.686 [facility] [place] [id number] [address] [facility] 2020-10-24 2020-10-24 [facility] [id number] [facility] 10:30:00 10:30:00 ADDY devi of [facility] 2020-08-02 2020-08-02 Telephone Arnel [facility] 1.2.840.114 [id number] [facility] 00:00:00 00:00:00 [facility] 350.1.13.10 i ty of CLINICS 4.2.7.2.[address] [facility] [phone] [address] 2020-08-02 2020-08-02 [facility] 1.2.840.114 [id number] 00:00:00 00:00:00 [facility] 350.1.13.10 CLINICS 4.2.7.2.686 [id number] 2020-07-18 2020-07-18 Office [facility] 1.2.840.114 [id number] Univers 10:54:04 11:57:47 Visit Addy ROMEPEC 350.1.13.10 ity of IALTY 4.2.7.2.[address] [facility] [place] [id number] [facility] AND [address] DI[facility] 2020-07-18 2020-07-18 Office Janis [facility] 1.2.840.114 [id number] 10:54:04 11:57:47 Visit Addy ROMEPEC 350.1.13.10 IALTY 4.2.7.2.686 [place] [phone] [place] [address] [facility]IN[facility] 2020-07-18 2020-07-18 Outpatient R JANIS [facility] [id number] Univers 11:00:00 11:00:00 ADDY devi of [facility] 2020-07-13 2020-07-13 Telephone [facility] [id number] [facility] 00:00:00 00:00:00 Addy ROMEPEC 350.1.13.10 ity of IALTY 4.2.7.2.686 [facility] [place] [phone] [facility] AND [address] [facility]IC 2020-07-13 2020-07-13 Telephone Janis [facility] [id number] 00:00:00 00:00:00 Addy ROMEPEC 350.1.13.10 IALTY 4.2.7.2.686 CENTER [id number] [place] [address] [facility]IN[facility] 2020-05-19 2020-05-19 Office Brando Ibrahim BC 1.2.840.114 [id number] 13:48:40 16:45:35 Visit AMBULATOR 350.1.13.21 Y 0.2.7.2.686 [id number] [facility] 2020-05-19 2020-05-19 Office Brando Ibrahim BC 1.2.840.114 [id number] [facility] 13:48:40 16:45:35 Visit AMBULATOR 350.1.13.21 College Y 0.2.7.2.686 of [id number] [facility] 380 e 2020-05-19 2020-05-19 Office Mile Brown [facility] 1.2.840.11 [id number] [facility] 09:41:56 10:07:30 Visit Josi Rg MULTISPEC 350.1.13.10 ity of [place]2.686 [place] [phone] [facility] AND [place] [address] [address] [facility] 2020-05-19 2020-05-19 Outpatient Joesph JOSI RG [facility] [id number] Univers 09:45:00 09:45:00 ity of [facility] 2019-10-02 2019-10-02 Out[facility] [id number] Common 14:00:00 14:00:[address] [facility] 2019-10-01 2019-10-01 Outpatient [facility] [id number] Common 09:40:00 09:40:[address] [facility] 2019-09-28 2019-09-28 [facility]patient [facility] [id number] Common 14:29:00 14:29:[address] [facility] 2019-06-22 2019-06-22 Outpatient [facility] [id number] Common 11:00:00 11:00:[address] [facility] 2019-06-19 2019-06-19 Outpatient [facility] [id number] Common 14:01:00 14:01:[address] [facility] 2019-04-08 2019-04-08 Office Viral Marie [facility] 1.2 .840.114 [id number] [facility] 10:00:07 10:10:07 Visit Demarcus AlonsoPEC 350.1.1 3.10 ity of IALTY 4.2.7.2.[address] [facility] [place] [id number] [facility] AND [address] DIABETES [facility]INIC 2019-04-08 2019-04-08 Orders Doctor GONZALES 1.2.840.114 [id number] Univers 00:00:00 00:00:00 Only Unassigned, AZUCENA 350.1.13.10 ity of [facility] 4.2.7.2.686 Justino as [id number] [facility] [address] 2019-04-07 2019-04-07 Out[facility] [id number] Common 11:00:00 11:00:[address] [facility] it Road [facility] Results Test Description Test Time Test Comments Results Result Comments Source Tissue Exam 2022-02-01 09:07:26 Test Item Value Reference Range Interpretation Comme nts Case Report (test code = 104) Surgical Pathology Report Case: [id number] Authorizing Provider: Santiago Jones Collected: 01/29/2022 09:30 AM MD Jose Ordering Location: [facility] Received: 01/29/2022 10:12 AM SERVICES Pathologist: Jose Beal MD Specimen: Stomach, PARTIAL GASTRECTOMY DIAGNOSIS (test code = 3220) c3vzyLAmBADqo4uePVXsuKPuDuKiUvJvDqVcAf pcd WMxIHtccnRmMVxlcGljOTYwMlxhbnNpXHNwbHRwZ3 UwuzcyVJbxEK4cLG3chIitcEGvvKUlEIYfHaDgc3i sm480bXFtf9rfJCTAtvkjzGf3gCvxI65ii9Y5Hdnc U5zvMTGcADjrAKKbWOugmSJhUCj2XMEtcHJswiHrD sMmFYKxiWWpqAM3BTBlEE6ddfnoAJmeOCdoCIEoqe Z1DFIwmDPaQ0SkMIJzKB4gobalTGK5CPnvZPFcASG 7VzCdVLBbi0Hclmt2UaEppLYrLNvbdCAxaygbylJp MHHaFUdbUmRgQ7VEIYNIITzrRUVgRIEBJWHROUYJB DNNKAQDUQHMLRCOGdGAPG9PBCtqPvLmSspjDFBzL1 WvWNYaZAFMSTxHRPmAFH6TA93BWTNILELWCG7XKyh SLSpnJJEdDFJKJQOHXiaLGPmGSYVPBZSFIQrXA5PO TZCNA8wtLHKtN0EeYVPwK5UqTK2xT6DqJRIwW3DpF HXMJUdWERmXBDWVR6CoSDRUWCWQBcUHHBBHSMLELY 4RZITHYlkCKffRCGPiCEIuOMUjCXWeXTNWWSVlB2X rWOijYEMTACANFR2MMVeSFhqgzWYvKUHvX5McVC5e Z7IzOGEzE4BvWVAECAsWJIcAEJSII9JhTY0TJLHGF Y1CODNQQKYSBOpMZ3iVMRWRBGGKTHDRCIIeSH0RQM hBWvVQW6xvnOHspYntsaJoLWbiv8UyQTnmPFSjWB2 pwXfkFCOoMD4wMUJfF9ddwE8oqrk2TaVqQHDkHrQ9 DCDthtQ1Pti7IXPuMRdrf3vrp5BoVKNfQLl7oLfqG dWrQZJaa6getxTrWbTyIYPfKTZwPRJciPNzN772c9 hpd2cvpqBfsLM2ELPqGUV3IZirilDhbuZ5DIdubWW wAiC2UOykzaOrHAywwvHqcbCdUzj2QKChQ948KPY0 hMaci8qgPWE9WRVqCOStAvKyWv2bwCBwK469IFXuQ RWUIZNssBt3YMEguvOcwiDeeHLHa620A865g8mjMY OkthFdpLyKpcetd3tiC124PAMdgEXfslGzXbBlOOY lyVLqhQR0VUYkIH2ajzxdJCboLQiuVAEedeK7LYZl vFXnE1ThKSOwNZ0tljveZSJ3DBpeTMAcYKQ3AaIfE EVov1Zmybb1MgMzsc7jvm50JOC8v8FjsZxiDZK2SN Q6QjCeIp8uqRBpPZNwMQ5cEfEltHWfPSLwom87wYb iYIeqGJS0JWGeklPsd0Aeb9ktEfTcmeXwE5gvV5Ds QHAdQBFnKCAqDlIsonArz3Qjr0RnzQGicGs4p8rlA VRwDPDbbVbxb5qwBMI0LWSicDRgG3wmbW3rLVWqNR 4dtypme6ygQSzmSNmlZUIyqWM5zzK9PPBmfYYsG3K doC4nZQVoBPozOTJyaxy4NmYsQd2lqDTcvOxdVYnv YmtwYWdlXHBnbmNvbnRccGduZGVjXHBsYWluXHBsY WluXGYwXGZzMjRccWxcbGFuZzEwMzNcaGljaFxmMV saKxLfDIPcOLiaA5otEjNqLlObPfo6SUJhkVViDBH pFzk9GBHqiJHcWGCYoVcwmB3tOUAfaXwosL4tzXC5 IUStqiBneIDMfK4bVGHKlG3kGrX1FuGmEoC9CSJbG DlccGFyfX0= CPT Code(s) (test code = 3357) z1fjbDYhAWRcpIL5VtTxDYMrc5onf8MowVTy cGFyX DqieFQpufWvhi06cXU9qD35RB9eKVKbJyD9VYNhvw N8Mdx0TQBdZBKqoHEsS155v1yrr3ihgxYffKC9lSa cXOKvbcsfKeA2WEqqVCUanbpwADx1AKrrJVSpdNR5 JZOxxEMyS5WcONOkPC8bfcv3EVG1CUtoGMAfBoJ1W TQkzPFyMHSxaVtjXLjqz783DNF9TpJeICYdjoCjyE uwdY0iRfOxBYB7JLFlBNhxIVN5 CLINICAL HISTORY (test code = 3046) l4mevQEmVFSaoHK1WxVmIQRuu2hcy8Y sdHBncGFyX GzhfEHfabPdwh12fPV5gD20CK3eCCZkGuS2ANUkwe U5Jot9JGKvHNVkvCDzH064q8fku6nmraNlmES8DDP pMRDjD6WfTH6sXEGvvWOcC50vjCZhHBW3QWJfMNJb xTVrACBgGYV5SVAbuUVkB9uoYKKwIS2gbxwxIJnpT GntMYWsuTC9IKBehKToC2KbNDUiYOqlCSHriwa3Fh MnQq3sjQTalGsdKPghPGQbWILqDZfdxPNdabaguzV eMIAiQMETp1IjkQElj5Nyx4g7lFkeYi5qjQNgGKFa QDoaONV5OFEyDpCoKOQsADayQAI6hFHmLDQ6cA6us lOrsRV7NZu2PJThzdF5PhOdX3mqdrW9XMVHWbO4sz QgoRx5KTOjnGMedFEhtU5lBPZasxHDJKQPUFMJy82 dXV0qxFOgKPvgYZX1PJYwz5Gtj2HklTUviC== GROSS DESCRIPTION (test code = j6coiOEcQLYjjRTZBXZoS2vlvmSnRJJpmDIn [facility] [id number]) [file] PxxbTSQnC5TvZ7RibdW7INi9 MICROSCOPIC DESCRIPTION (test code = n5keeCVlNZFyqOP1PeKdHZWbb5h gk2XdrMTdtEEuW 3371) OtilMWesrPkeo80fUM9uU25MA1jFUWhRxD8PXLqgk H6Ldy0MPYrNZUsvIYpH070o1lxt4qpfrRpmCG6lBp hMRHobhxrMdI4ZUdnYWZfwspyPZh5TPzeXPZupEQ6 ZNPleBXtH0YaNJMlLS3puga2QBZ2GZhxAXWqFfZ8P WSlwFGrNBFihTyzZUbrb941GWP3QtZgLLXyxtZvzG icuJ7lLjUkSAYXQHHfv6MfNHOdTMDyvfrmPLKbSON hcn0= [id number] 09:07:26 Test Item Value Reference Range Interpretation Comments Case Report (test code Surgical Pathology = 104) Report Case: [id number] Authorizing Provider: Santiago Jones Collected: 01/29/2022 09:30 AM MD Jose Ordering Location: [facility] Received: 01/29/2022 10:12 AM SERVICES Pathologist: Jose Beal MD Specimen: Stomach, PARTIAL GASTRECTOMY DIAGNOSIS (test code = z0yuaIXxELQem7cjCUCyzCD 3220) uZzEwMzNcZnRuYmpcdWMxIH tccnRmMVxlcGljOTYwMlxhb eVlRDEarZRjW2DsfjelECgu IV8rDU6zgWtyaAXotGJnEQI xAlWnh8hrk740nKDqk7qqZD ERaxirzHj9jEqqF32oq8U3M qiyH0luLICaCLwlMRAjQKmt bQTiGEh0HCAerQJsndCxDhH hSYEiwXDcqYJ2OKRuIJ1zog nvFKygIQpiXTWgokQ4LWWyo LJxZ6TfXDFvRF4bsqswBXB2 GEpoFFNhMQM5EvJkQPZlk4Y fxsy5GgLedCTyASwnuTGvtt brpaBwTZOpUKgpUbUaP2EPN UFDSCwgXGNmMCBQQVJUSUFM IFNMRUVWRSBHQVNUUkVDVE9 DKRfmWlSuTiamCKXmW0ClAP SyJPLRBWpKICzLOE5BS47KO CBLRNXAED1LSelCRNgsMIYp MSBDSFJPTklDIElOQUNUSVZ HDHpDT5KUMVVJW2wnKHRqE1 WsJSPsL9QnUQ0kX9LjJWUhH 1CxYRWWQUrVKRiQYBDFB1Wr SEVMSUNPQkFDVEVSIFBZTE9 SSSBPUkdBTklTTVMgXGNmMC WjJCSkNJHTUBAuF6AsRDdiE RHKAWUMJO9ZBBuWOvwxzSPz PORuZ1AmJY9eT6PdSTPiX3X aMUSBSCiJIAzZZKNKI6VbPD 6IBICRKH0WTEFYWTUBWFhRW 6iOTZGVODRYOCBENCUqTJ3E ZHqXFoRUJ0zrlAExyDyzmbK gCMgdj2OeKXypWYMgWK3ipP enWKGrUL6tUSXjG0ztxE4og qp8VhUaDRZnCfA9QQQdrjS0 Wcx4WAHdANkpx9nep2XrAIT zXYu2oNkaLcMdXBZjx2cgaz BcZmNoYXJzZXQwIEFyaWFsO 505f8ave1lyamGiqNK4NXCv XGI5FVmkzdPdfkI8ZIbkxTQ xWnM4ZIsnygZpGNbucoDvgn TvAuo4EDImY097QFZ2pKsjy 6vlUFC6OFImXAOcWwTwSe1y oAGdJ123MMNiADUACMDzeQp 1MFXgerDhpkFwxGGFo708X4 51u8orDJBwecHzaXyTjehsz 2cbW611XIGhyOVkjuMnSkTx NSLpbDQybLO0YKWrVR7slqs iPTteAIlaQTChtbE3ROJpdA HzT2KmZYLhMD6zparvHTK8V UamADCyYAB9BcYdSEGfl6Hi ltc8CoZblh8ynl27DDJ0q6X gjCghAMG7SNI6JdTuYz8jdK DjUWXnBE1bRyOcqIZvVVLnw r23sNalXMgjHKI8WHAxwgKb h3Lon9gmHeMernYrJ4hmZ2U yZHJoZWFkXHBnYnJkcmZvb3 Vah0TjtREyvVr0e8vlPETlU QLjhDcfj0lxSYT6BKKojIRi T7prsH7pOQPdPD9lwzatc8g mOUfjSSbqMNGedZS6rxK4DS TifZQjG9CifN6mZVNpSPpdM FEmxlq2MsHxTe0aiJSarXcd MFxzYmtwYWdlXHBnbmNvbnR ccGduZGVjXHBsYWluXHBsYW luXGYwXGZzMjRccWxcbGFuZ zEwMzNcaGljaFxmMVxkYmNo XYXlVJklH1rkUbLyPvXhKar 9YBMppIYhGGLhAsu2ITVshW MyTWWUcOsndK1mNSEccVphw O0bjFR4QURjtoHdqMCPoE4i CVTVdV0iOfW1ZnOfAuJ7FFH yNDlccGFyfX0= CPT Code(s) (test code p4fobMEjPLFkePQ5KsBvYYC = 3357) fg6eyy4QutNPglKMpMLgdhH KjbbHwrd58pTL0qP50ZD3pI JVcEtR1NUVwweL0Zso9JDHg KACzdRJfS817i0mlj3xlhcK zyIU5pBntUHNfslmmKrP0JG cbJIQrdstmCMo5SYqhEMOhj JW9RLOokJNzG4PzVSWvVE7w dvh2ELN6QGfpYJDdWpF3ROS oiSTwVUEejKlwSXgbk890OC N3TlIlWRUcmtSyxWcsqP6kN qQeKQJ0RNIyCHwuGMV4 CLINICAL HISTORY (test y3vbsTMyTBVezWH0UmRsXOW code = 3356) ob7sby6OwcOOutTVtGDpyjJ GyptDrvi90eWV3iK13FM5qI GMtXxF2CWOkruI4Omo7PTAo JZFxlPJpS873m1qwn4xcsuP upUX1PQPwOGNeO8UhVA9aQB TliCWaK18clRHwLOW4UKWsO YRaoLVnUEOqTOG9CFPfpAJm K9bhYXSpGC2rxxuaSQjqFRo uZZSsgGF1OSImkIAqG8QqRK NnMStvMNRqtei4OyIyVk5gq GVyeTcyMFxwYXJkXHJpMVxw tFNvedeojxAsYVSpJYCTy0G xqSDex6Ppx8t0vShpWh7xwI ZpWPIsXOzxYUD1CCAnMhMvV JUnOKwuRFR2qODnXEO7zL6f zrZpfYU4CBc3LFBponB5NvE fQ3ldxdZ5HNVSNxE1ivSyqZ u2HIQktMEpiYWwaO2oHFJqf kOOLWVPCYFQi08yEY4iiNTr ONvfLHS3BKGbd2Xof3SssFG yfQ== GROSS DESCRIPTION s0lurNSsKBSgaUFHNAPrF3p (test code = zziYrVDYerUQeB2GjpojsZN [id number]) adHR3pJN6jiYcjoLRurUFtY K3FVFLuStYnJDPzkKDbirGz ZoAfMEXucLHlcTC7UPHnIQ5 jzxszDZdmTUuhOJAiaoY4AW BgxQNrK8MyVETmJW1qgmwxI DS7GYbapL1wkaOHXbwqOq3i dHRibHtcZjFcZmNoYXJzZXQ kBYPmxNfcKPKbCLc3fG7MCk krHNW6BRKGKdwhMRPuFX3Xr 0tzKCFspYNiQOC3NBkoiJIz APKwXNAvXBm7EFDxYGuvoJG mQZ8gaZsrOvromJkmk8JvnP BcXGlkIDUxMDAyIFxcZGIgI N7GCjMpOEG4CzfhXLUiSJt8 YNv3FM6LPqFaOQRmJHq6Vzi 0BAUaVJe3JTwnIC5MGQFyFG k4GPSkHfW5NORrZCXbKBSoB iBcXGYgQXJpYWwgXFxmbCBc WS9inPxnqIKvyzHCLyPHwS3 tYWNoLlxwYXIgDQpcZXBpY0 9fn3BMd2UlYB7RSKw6ghMvm vkllZ3fCLHblrTiXKbekYMh W6kvBvJfFOZOVLYydRHxTHP cnpGng2ZyJKqjwiQmHGCpmV NpBZPqAHDlTOQeAB61Z1Vbb rKeAJsaDADgPLTheZ7dSQ57 bWJlciBhbmQgInBhcnRpYWw nO3TieHOtN5NijHtoSVqxOY DzVkMwVJR3GCHhSGB2UPHnW BRzzGK1tg7ltNOoqXMrEIDn ymQnh97hb6Bgy3FsaWWzeGL 3aXRoIGEgMjAuNCBjbSBsaW 0zUTAka9EtbOeaYQcmfgDmM HNFlPLcc3Eil0YyGUvmYTMl tf8rfA9oDTKvrJ7cgZcdKB9 fEFl4nAZlTX2yNa9rLYTyFE QeiQLmjZ9eewOesxFyxPMdB IVmdJ9kwzO9AOJuTBUucTEc AOMcoyaxRRBkP4AamHqqSQD 4gEkhtEL9y1YnNN55D48jOI T3dJN4CMLxb3UmMOtnAJ7ux j3uhAFphZpvnFIqa6sgui9v PY6lCNPgd7CfJCSsYBfxs8s magLdATJjLXvzNP54sMQwCU OgXNAPVBXmEIAylyRiwHb1I URxWKZ6aV2fgtWakbMua8Kn kKl6rSGsQNylZDZbHJAxDth jwS1fDHkgyR5vSLNviUUuCA GpC9NccVfaeckdQIKfYUfAT LgMH5YXEZ9CPMCeXNexMDDt iRYELRZ8QE9kZCparYGdlap nYPWxJ4BaR9YowtTjtFUkHH FpcaYaa3hjQLK1LBZayBIjy NPyEuBcSkaqVJK6UHpid8ah SBU2JMCuiPWpyTZpRAfjPpP rKxdcKTWwJ5PdK7FhvrH3SX p9 MICROSCOPIC d9qsxMTuRRUxdGG3QeTpDGM DESCRIPTION (test code ht4bov4HdvTGltGIdRQqzdI = 3371) KkelBwtw89uDX4eM08YU1hW RAaXyX3OAXptuP1Ajt3HXEm NBGraIJzU123i5sgm2pytiF svMG7eCvkIPAsgxzmUuT9FW vyLXFolrglECy5IHbtSKDnq XI6DAJdqMXdM5UsEBPhDO7o ntg5ASF2IXgzFCWrOjJ7WWF awJEcRGHqoDmeEEsae653OW Q0NmWtPQHgphKpqMcrfK1kC nEgKGJYSAIag4NrJQGyEVMe clxwYXJkXHBhcn0= [id number] 09:07:26 Test Item Value Reference Range Interpretation Comments Case Report (test code Surgical Pathology = 104) Report Case: [id number] Authorizing Provider: Santiago Jones Collected: 01/29/2022 09:30 AM MD Jose Ordering Location: [facility] Received: 01/29/2022 10:12 AM SERVICES Pathologist: Jose Beal MD Specimen: Stomach, PARTIAL GASTRECTOMY DIAGNOSIS (test code = w3ahpUVrSPWko5gaKFNbxTT 3220) uZzEwMzNcZnRuYmpcdWMxIH tccnRmMVxlcGljOTYwMlxhb mGbIDYdaNNiM4BixbuyXCff VR4bRG5vzZfhxPBjtHOoUGG gXfSdi6ord891jQVri0pvUF JRqjphzCy9kGilO93cc3B8P vngR9pyDPAjQZisTUYaZFmq lMKcQFs1GTPyhELqebWeYgI jPXUgfFTbkBE1VSLmIO3tys uxXAwbNAvcDOOmggP6YAEum UYiS0GyUJSoNA0blohpQFH6 BRbpJPUfKOG6OmUeAQShs9L mepq4WpBosPAkQZpfvMKhao vhcsLoYTScFDvhXlSrD1XVD UFDSCwgXGNmMCBQQVJUSUFM IFNMRUVWRSBHQVNUUkVDVE9 AMKxzPsNiMpnvBYCaA6GbKT QcDYVEFNgQOKgETP8JS15UU WURMEINOO7CVwwKNWdzTLGm MSBDSFJPTklDIElOQUNUSVZ VEKpPQ0LCYSVAW5dcMMQvQ8 DzUTXfT4FaVC7dD7TtDYXoW 3PeBOZIBQiWORfBZLAUO2Ky SEVMSUNPQkFDVEVSIFBZTE9 SSSBPUkdBTklTTVMgXGNmMC FmWDFzBYKKCYAkX8BcXIunB FIMCSSZBF2HATcBPyycvQAn HDDiL6OoQW4uL8VjQPSxN9E eVFRGDYmVKExVKDNRQ0HbTK 2GNREJDX2XVYZPKINZJZbFY 5aEVSMFYHRJWTZWJYTkSJ6N ZJtSQyUXE9qliJBmwVyglbA mYKarl8YaNSmxCKUhEL3yyM aaGHGwES1hGLIdV5cjjY1og zo4WlUlJIXbBuJ7ZPYejxM8 Kik6MBZvLAhkt5lns7HdYMS bGEd5hPalPcUeGRKxt3vqcw BcZmNoYXJzZXQwIEFyaWFsO 636e5yim6nrsfXvuHM7CLBq KHS7NKlfhnIdkwL8HFyzqDR cPkR7YTlarlZbIHswapOtlr ScJtn1TURrI778HND9lOenf 0ayAPF4YPAeQHFbCgDlKx4a kCHkN613OTZvQCDPJELjqKc 6XGQlexZsriPzzSMJc390W1 95q1zxWVHdtmWrcSzUxvnwt 6smF752DAGmdWRbukAtHxQt VEFlnSNwwRJ0GKDlMF1twiz cAPceAJobCZQdczM3IATtvA DzY3WsLOAiAP3uwgocDYT0B NwzUVXfPOL5HbFoRNUfb6Fb lnq1OfIaqy9idv65ATR8m9J waHrrMGN8ZPZ0HpOeCe5zsN NeUYJrJI0aAdKbkDOpQDQff w90vZbiXRskIJR0RMFrgfWu a6Ncr4skZxGdbgJaO5ziK5F yZHJoZWFkXHBnYnJkcmZvb3 Bzn0GdkPAgoPq1h5zvWKMmI MVgnDreh9tzVRA6VFVpaHCq T5rvrQ3tNZDaAO5hqhxda2g oTZviXRkzKNQdeYM4vsW9ZF AyuNMjE8SgnT6yLSKfVXxaZ JMbyjf9GuNuNh8nqSTehBtu MFxzYmtwYWdlXHBnbmNvbnR ccGduZGVjXHBsYWluXHBsYW luXGYwXGZzMjRccWxcbGFuZ zEwMzNcaGljaFxmMVxkYmNo UTDhOLjuJ3utYrPmVvMhPql 9TIJglORzSOAbYpl0XMGzwM XuZAAAwCuiaZ2jEWTkqZyoz P4zyQL8UKNanbFkjFFKwR1a MIPNuK7pKlJ5YzLjGtL4FUV yNDlccGFyfX0= CPT Code(s) (test code d1ofpINuAOTwlOY6NgXlSJC = 3351) nf0rfq7SduWXypJWmEUtgmE QhlmScvc94nQF7lM21WY0qG SOyNbU9SDVlteP1Yac8YFDk XKErxSLmN710j6ukl1soprB zeWV8qVyjZFYwlibkVjU9PN jwOUAmtiboJBy4VIyvIDXzh AJ7AFBhbJVtI0EoSODsLP2y jms4UQF4FDlaJUIhWjM3JTX aiYSbMXIhcSlqPXsom451AW R2RwQbVVXlifQgvQglnD1qH wAkJDX9WQGaREnvPRA7 CLINICAL HISTORY (test i2bwbQHiGJLlmKV2EmTuTBH code = 3356) ri0lhz2HieQAdjUEwBHxdqK JwzlDixc96pPD2mI07ME9kE VPhUoX8WKYyfiV5Phi7FXOm CWJymKSzI227z6tqi2sakeJ vxJN1ISAbZBKtF5WgOA5wRY IcsOUjY50ylBYiCWU1JVTuB NYpvCFdNCLdYEH0ZSRtkGHz K7liPMErFS2hdjnwGZvzEXb bSZHxfJD2OUIpwOMwT0VrGI XtZHfcAPTurvj0EuEtQp5rm GVyeTcyMFxwYXJkXHJpMVxw aGNhblxpmzIuLTFqFDJQf6B bpTCls7Ynb2b4eLmcXq5ulH VyFGVlXRosUKP6YBCtMwZiZ QByHXroYYP2wJPqLGC0tY4z aqMicSK1NCb2BSTsxmA6KvD pS0mwunV3HOXAWzR6akFimK e3QSRbjHMguHKbgW8dJOGsj sZTLNAVXMVJm27iJW5ngIWa DPpxFPK8WSIaz9Muf4KujXE yfQ== GROSS DESCRIPTION a0kzmJPvNSAicLIALLCqN1l (test code = dylXcPPJueBIuK8NhhzjhNB [id number]) amIP5jXA0gnErswKElsFUyP C5NPJPoPsIzCCKmqNDagmTe KcDaTCTjbYWqdFY2MBKqKA2 bvfjuIFesZEigPJWwjmT4CU HuhQVaN3WtOFKzLH3myscwG DF2YDttlX2phmBWBacoOz1i dHRibHtcZjFcZmNoYXJzZXQ xITFpzWyfXWJhHDk3xB1CPf liHVL3BYBMRbyoOMIdTB4Jm 3zpJLEerCItIQI2PPxaqCQj LMItKIPnBDv0JAPbCGsmiPI eDJ5orBqmDgbbqVmvq9MzfU BcXGlkIDUxMDAyIFxcZGIgI A2AYrFpDKU4EmyzHUVvTRo9 TIv5HQ7GJwCoPEIxRVg8Brk 4SAEmBPn5NUvpKW5LIYUjFH s2TXGoIlH6AUYvVRCqGHQlH iBcXGYgQXJpYWwgXFxmbCBc VT1ygZnsxUCnxcMSWmENhE0 tYWNoLlxwYXIgDQpcZXBpY0 6as5IEf6EuGL9NGNm2paTxg qtscA4pCSEorwCuXWkbuZPq W6doQhXoYLBFZQUzyDPhRIA glgNzz5ZlQUautbIpUJJwcM QgTWLmOUWoQNDwGM85C3Gjr fHuJWhhAGPuGWJwmJ4gTQ48 bWJlciBhbmQgInBhcnRpYWw cP0NziLNqU1KjqPrbPVuzNI AeIhBoQIT8WIIhEHA5RAPxZ YVqaGL7pn7nxMWcvCRaNIWr rjZfv23ow5Odw7HvtGFzgHP 3aXRoIGEgMjAuNCBjbSBsaW 0hGPRcj1IetCpyNNtxraXeE KJOvNJuy0Rqr4WkUKwtLSRb yp3onL7dHWOnrM5qdXpySQ4 bPSm8rQTxMV4qDd5fRBRtLF MspJLwlF4pbzKinmFiiCErM TNchW1rrqG8QVDxCWZbaNZn EJVgiukvOPUqY2WzlFfcJQZ 0nKrurDV2y9HnIZ99T48bKJ O9xHZ1ZMAiz0PuFGcdBZ6xb s7vlLOclOaxuDKmm0kpew8s KW0mKUTgm8ZxNOIcDPbyk0f wdrGzDNMcFJqlSE20iGLsXW IoSDPHYNBnFDQxiyRrkKk3W SOmHHL8cG5ymxPbwdDnh7Ab kXv1bUSpCJenEVDeGBEsHnd eaQ1bGVyjcN4mFYLdkEVdZL KrM5OnnMaibnhuMVWhVMoZX TpPK2BKCQ3PPLXdSOjzNLCe yIBVDGW1DO2hPPdwfKKcgjo jFODnD8AxY6JkvwWucRNqGS KjfhRxz7qjFZC3TQBxlDQmm XOtZrPzCiaeXLH4XHnhx1sh NBP4JGDjbVDogCHcJSfjBuW aEzjcETVgK4VcQ2RoqnE2WX p9 MICROSCOPIC u4mdpFJvSSLraSH7KePgFGP DESCRIPTION (test code ob1buy5OmiVOleHJcTWudtQ = 3371) RgdwMkqx02zSS9dD44GV3gE ENsJyC5DHMqkqO6Zau7IGYg QVDyhWVkP846d0aag7ibwuD bnUB1mTnyTQQqjdzaDlA2VK baIOCxavwwKHq9ETyfPAClm GX7HKNhhADnC5XvLSOuQM9z odm1GGH5RWyuRRVkPsV7SVV ckZOoCEEvrAwbJYamv805PC N9DkJyMZDuphWzsBibwS7gI kHjWYBBMQIdo6NjULMnFBFw clxwYXJkXHBhcn0= [facility] [id number] 09:07:26 Test Item Value Reference Range Interpretation Comments Case Report (test code Surgical Pathology = 104) Report Case: [id number] Authorizing Provider: Santiago Jones Collected: 01/29/2022 09:30 AM MD Jose Ordering Location: [facility] Received: 01/29/2022 10:12 AM SERVICES Pathologist: Jose Beal MD Specimen: Stomach, PARTIAL GASTRECTOMY DIAGNOSIS (test code = p9xgeGByIZRvy7wdKOQkhWP 3220) uZzEwMzNcZnRuYmpcdWMxIH tccnRmMVxlcGljOTYwMlxhb qTmOTZvkJThZ2FvoqvnEAui MN8wDE3hlGeueAYwwJNhHMB yHiZbz5ann149xUQys1osKM TNwosgtIw9tUtoQ38gd5V0Y neuQ9slAYNrYFuhUXJhXOre oNZdHTp1ILWyvGEbkpByZbF qKPUyzLTveUL4XGFqMU6usc czGUagLQrpTDWkhyE4RRLwm YNdE3KtJHYzTL2dhodeNPG2 LRumWWTmACW4TmBoCQMzw0Y xxft1VyEquQXiKVbceNNwna tixzDrJRNkQNqxCySaB6LCT UFDSCwgXGNmMCBQQVJUSUFM IFNMRUVWRSBHQVNUUkVDVE9 ZZWgpPfDdAgllPINoU3CnRB UoOAFWKViRPNwMRS7GN17YQ FLVFLFAMD9ULsuKUTluACYa MSBDSFJPTklDIElOQUNUSVZ DUDqBO8CMNEJOS2xmGTFxZ8 QaGRUdI7UjGR8wN0OhEAOwD 7NpBYSPDWeRHBfUBDBQZ2Cf SEVMSUNPQkFDVEVSIFBZTE9 SSSBPUkdBTklTTVMgXGNmMC DeBPIrYHWVCFWfY5TrVDiiJ DITWWSIBJ3GAErJNfyzgLBf LVNqN4MpXT5qG6NzUIWbC9L cEFFRSQkBMZkMAFKFB7TxFJ 5VVCDPJS6ZNPURKUFZWDuKQ 3pHOPUXCCSLLJLTATDrCY4S TJoSRjCRN5tfyJKdcRjrkpJ hTIgwz1HpRAyoOLUkVF6gxD vjACXqKI5mFDZiY6zuuI3zb xy3NzSgDJMjIcX3PLNkjwY5 Ity9BNIrMPgkq7tjq1SqQJH iDHn8pSqoJuSuPOZqj4adwu BcZmNoYXJzZXQwIEFyaWFsO 329k4atc4evgsVsfAW4BMUa QSO2QUcagaTasyJ1HZcwxPV gMhH6ZBqorkEhNRibdmXedd FxUag5CTCrG103XSW7wMdht 3prXQZ5ASRgQXVnYyKoDy2w xLZmC931BHHwGGKHDCGkkBd 2ELFwqdBtgyFucXFNq605W2 58v3owRSEpyfPhfLrRjllfz 9pvZ621HPRtiZWumqLiPfLw HVCtnAVpsLZ9QFPjEW1gtne sMCeeKQbxFIZazrJ0WFJhlV RvE1GvUEOdDK9nbgftIFA5R GisYECeBUQ2ZmYhUYUte6Ci wcc2XoRpsc7msv43XUB1r2Q iwUyuNPJ5LJL6WsZiIc4dkV OfFXWdMH0eFsCdlTRrIHVyx v74fXbdQPavRST9FMVizfFp f2Ycj8ngJwIxkhHmT1njP7J yZHJoZWFkXHBnYnJkcmZvb3 Ygz2MjbJByjPh3f1roXNHmE FLvgBbjr9nbYDH1NQTktAYt N2ofmZ6uXDNkET8swtevz4d bJYohREqbYUAcpOP8hzT9JW XtiHRrZ3RixH9hLIZgHFrdP FEgusu7CfYlTt7enAEhuBjr MFxzYmtwYWdlXHBnbmNvbnR ccGduZGVjXHBsYWluXHBsYW luXGYwXGZzMjRccWxcbGFuZ zEwMzNcaGljaFxmMVxkYmNo TMYkMMmkD0fhDdAmObEnKme 1HFZneCPpPPGbIma5DFHfzF DjKRWFaOxzlO1oXUKrsBgmk B2xlMB6HHXhrjGgtZJEgH0p NLXRsT5sZuR2UrNtOpU3OYX yNDlccGFyfX0= CPT Code(s) (test code k5deuNWuHZDxpND7WnEaEZQ = 3357) ly7iie8KtiSSikMCwUNmdbX GtvlXcce61bDS7yV32PI1qR BGaFoE4GIQompJ2Hmz8TGHv IKUibWWvU917b0hik7skklY odHW7iVrkKVRzkwoxAmI4RB ixCTHotnmsVUj6SKcbGOGdn LV4TAVfmRUsH5BfWYKdWD3s odr0OCW9HSnkVLQfFaZ7HTZ vyZFeURScrCafPTbqk763WX O3KpHqNHDkfpSiuNagaX9vD hNeJQE5ILVuUCruYSB4 CLINICAL HISTORY (test c6ulmSBsVLUzlFQ8LlKySVT code = 3356) ii4etu4BkhLInmBHzAAxebV LzqmVour81qOM3qF59QJ4dA WAdZnL8IFStjcV4Slf4RHHm MZJvjYRpP602x4knd8trlhZ xjWI2FKRmWRJfH0KcFS7hIB IclLXfL69rtOHfJYN5NFGbF XQhrVOyUQWvWCO8QUOyeWQk L2ikVMDyUG5qanllOTvhCIv dNPNwbJL0NLPmnBXaV7CeNX GmKFglQXLtnlv1WaTjLs0is GVyeTcyMFxwYXJkXHJpMVxw oRKozemtotZdILWyOKQJu8W fmNOvs9Kgi0f8fUjzFa5woD BqAYKnEKyhDCV5PCOjSsYiP QZzQTnlLAC1hTLrHRK3dN2f kcMbpUW6JHx6FZZguaK0AdO zY3cspjJ1CRVWAkA8qgRoqL c7QGJqvJCduJDzeF0hLCEdu nXLQVYHGAQTa67xZW2guGCm IGpiNIG2ETOra6Lxw4YgaTB yfQ== GROSS DESCRIPTION g1ualXJnXRKlyMAEYHSzB2e (test code = ynbFhTRXctHPlD2TyiqoxCM [id number]) jnTV9dOT3dkSinrRIcoAHyF N4VHPCkDxLlFWHyrVZobbNd AtXnSYJclVExoOV0OVTuTA4 nfsfeYSqeQSznHMAnlaX4YN RxfVBhJ0JtYGZgOQ7zihikI UK8JGtroZ6zekHPAesmPv2h dHRibHtcZjFcZmNoYXJzZXQ sXZEthQjqMCBhQTa6nX4PFc plCPY4XXSOUdgoSHUcLP5Cj 2glAQZdmARxDHJ8QOpruJRh ZJGdQWUePYa5AZQjBEznwFG mBL8pdVbqZzgawOdhm7PclD BcXGlkIDUxMDAyIFxcZGIgI E1HSjThWHB5CmsmMKPfWTp4 GLl6KS7GPnBfWSVhQNt2Iqd 6RRVkUKa4UOywNL7YBUVbVX z4NBPhEkH5NYBgEUTdZTYmI iBcXGYgQXJpYWwgXFxmbCBc IG4glCbtkIHpveBYZbGXeK0 tYWNoLlxwYXIgDQpcZXBpY0 6ln3BNb9VpED5TRKj2msAjw arthL3vJTQremIsPEdgqKMy T6kaBrMnGCJYQVQdkSQzPVH xvdGrs7TbXRrggsQuXOLzaO QfWPRaDYDrWZFtBX26P3Kig xOcUBphXYFgZKLfyQ3xIU61 bWJlciBhbmQgInBhcnRpYWw nI1AurRNrJ1JkaKbvXGaaMB GxMmJxYJW4FISrSDK4JJKvL SJrfXT2kk1zwCCpmGDjDBSo jbZwc14ut8Npm6PfiSKowBO 3aXRoIGEgMjAuNCBjbSBsaW 3hMUTew4RolIroIGnwljUdM PZRiZKou4Gpp4MqYRzmRGPa vt4osZ8mVQJddK7rgJkhNG2 xWAn1rDCeBA1mLd5kFXCnSJ WfnHTcxA8obbKxxoGviQSgE IVgjF9svgP8PBEjLXUnpZFa HAWqmbnzEWUkE2UpsHsoRNU 1vSqhyZS4j7RvXL60N61fPB G3tEL9GZCdq6BpAVumMI6pn i5uaGBmhCoctSWyt1drtt0a OA5rONZpo2ZuJBXpULwzt6i msfMeOGEuJMmqQU77fEGzXX EhBPMFEYKoCYBxwaUlqNd4G DNcUEB4rI7zhpAxpySjx3If mEa9yVEePBovRMQeBZXpEmm rwS0qLFfqgW2aEUXxwTOuCK QtR8JgoRdroksbTEBzCSiOO ZdLJ6CKYO6DGGUlQEtfFXZy rPWZFSG8GS3jIMgzsDDdkdc tYBOiH3EbE3MsduQhnCIhCA RsloLwi5chLNO6HMMdnRDds UVxMxExGsloHVG0BYfxw2iy XKZ3GSGudBFinZSgLRusGyF pEokeALKsB0RyN4SshtD4EM p9 MICROSCOPIC i0rxpCSiRRYkeRO0ZhEeNHP DESCRIPTION (test code uc3now6MitMKzaGEyTWoilN = 3371) TnkeTvje84kMA5cW21OH3dQ OBuQjJ7SEHftoK1Rgb5QNBq OYRddJMoD891y2iyi6pdriI bvKB4zHtyRNUchttePzM7MR ybQSLheoabZJl1AMsuOPMga UE5OBXqxWYrN7EhYEToUM3g kqj9AOK3DOpnNMUjOyW9TMN iqQXzHQKesQpdWLfqk010ON M7DqIdGYWvgwCtuHdlaG2uX pTqWRRGQITuh7UiRJZkSWPe clxwYXJkXHBhcn0= [facility] [id number] 09:07:26Surgical Pathology Report Case: [id number] Authorizing Provider: Santiago Jones Collected: 209:30 AM Hicks-MD Janelle Ordering Location: [facility] Received: 01/29/2022 10:12 AM SERVICES Pathologist: Jose Beal MD Specimen: Stomach, PARTIAL GASTRECTOMY A. STOMACH, PARTIAL SLEEVE GASTRECTOMY: - OXYNTIC MUCOSA WITH MINIMAL CHRONIC INACTIVE GASTRITIS - NEGATIVE FOR HELICOBACT ER PYLORI ORGANISMS (BY H&E EXAMINATION) - NEGATIVE FOR INTESTINAL METAPLASIA, DYSPLASIA, MALIGNANCY Signing Pathologist Direct Phone Line: [phone] signed by Jose Beal MD on 02/01/2022 at 9:07 [id number] obesity, Body mass index 40.0-44.9, adult, Pulmonary valve insufficiency, Obstructive sleep apnea on CPAP, Congenital heart diseaseA. Stomach.Received in formalinlabeled the patient's name, accession number and "partial gastrectomy" is a 20.4 x 3.5 x 2.5 cm unoriented portion of stomach with a 20.4 cm linear staple line. The serosa is da silva-pink, smooth and hyperemic. The specimen is opened to reveal a da silva-pink, focally erythematous mucosa that displays normal rugal folds. No discrete lesions are identified. Burglar Alarm Inspector sections are submitted in A1-A2.BERNIE Bangura, HT (ASCP)Performed.POC- Glucose [id number] 08:23:27 Test Item Value Reference Range Interpretation Comments POC-Glucose Meter (test 99 mg/dL 70-110 : TE STED AT [facility] code = 1538) [address] [facility], 770 30: Roller Checker/Techni holley ID = [id number] for Robert Flanagan Lab Interpretation (test Normal code = 20641-2) [facility]-Glucose [id number] 08:23:27 Test Item Value Reference Range Interpretation Comments POC-Glucose Meter (test 99 mg/dL 70-110 : TE STED AT [facility] code = 1538) [address] [place] [address], 770 30: Roller Checker/Techni holley ID = [id number] for Robert Flanagan Lab Interpretation (test Normal code = 43510-3) [facility]-Glucose [id number] 08:23:27 Test Item Value Reference Range Interpretation Comments POC-Glucose Meter (test 99 mg/dL 70-110 : TE STED AT [facility] code = 1538) [address] [place] [address], 770 30: Roller Checker/Techni holley ID = [id number] for Robert Flanagan Lab Interpretation (test Normal code = 39956-3) [facility]-Glucose [id number] 08:23:27 Test Item Value Reference Range Interpretation Comments POC-Glucose Meter (test 99 mg/dL 70-110 : TE STED AT [facility] code = 1538) [address] [place] [address], 770 30: Roller Checker/Techni holley ID = [id number] for Robert Flanagan Lab Interpretation (test Normal code = 61705-3) [facility]-GLUCOSE [id number] 08:23:27 Test Item Value Reference Range Interpretation Comments POC-GLUCOSE METER 99 mg/dL 70-110 : TESTED A T [facility] 6720 (BEAKER) (test code = ERIC Pink [facility], 1538) [address]: Roller Checker/Techni holley ID = [id number] for Brigido s Flanagan BASIC METABOLIC [id number] 06:04:00 Test Item Value Reference Range Interpretation Comments SODIUM (BEAKER) 136 meq/L 136-145 (test code = 381) POTASSIUM 4.3 meq/L 3.5-5.1 (BEAKER) (test code = 379) CHLORIDE (BEAKER) 106 meq/L 98-107 (test code = 382) CO2 (BEAKER) 22 meq/L 22-29 (test code = 355) BLOOD UREA 9 mg/dL 7-21 NITROGEN (BEAKER) (test code = 354) CREATININE 0.67 mg/dL 0.57-1.25 (BEAKER) (test code = 358) GLUCOSE RANDOM 112 mg/dL 70-105 H (BEAKER) (test code = 652) CALCIUM (BEAKER) 8.7 mg/dL 8.4-10.2 (test code = 697) EGFR (BEAKER) 124 Interpretatio n of eGFR (test code = mL/min/1.73 values Stage De scription 1092) sq m Result G1 Xiomara l or high >=90 G2 Mildly decreased 60-89 G3a Mildl y to moderately 45-5 9 G3b Moderately to s everely 30-44 G4 Severl y decreased 15-29 G5 Kidney failure <15Reported eGF R is based on the CKD-EPI 2020 equation that d oes not use a race coefficientEsti mated GFR is not as accur ate as Creatinine Kaleigh davon in predicting glom erular filtration rate . Estimated GFR is not appl icable for dialysis patien ts Roller Checker ID - RICAROD [id number] 06:04:00 Test Item Value Reference Range Interpretation Comments MAGNESIUM (BEAKER) (test code = 1.8 mg/dL 1.6-2.6 627) Roller Checker ID - RICARDO [id number] 06:04:00 Test Item Value Reference Range Interpretation Comments PHOSPHORUS (BEAKER) (test code = 3.4 mg/dL 2.3-4.7 604) Roller Checker ID - RICARDO LCBC W/PLT COUNT & AUTO [id number] 05:02:47 Test Item Value Reference Range Interpretation Comments WHITE BLOOD CELL COUNT (BEAKER) 9.6 K/ L 3.5-10.5 (test code = 775) RED BLOOD CELL COUNT (BEAKER) 4.13 M/ L 3.93-5.22 (test code = 761) HEMOGLOBIN (BEAKER) (test code = 11.8 GM/DL 11.2-15.7 410) HEMATOCRIT (BEAKER) (test code = 34.6 % 34.1-44.9 411) MEAN CORPUSCULAR VOLUME (BEAKER) 84 fL 79-95 (test code = 753) MEAN CORPUSCULAR HEMOGLOBIN 28.6 pg 25.6-32.2 (BEAKER) (test code = 751) MEAN CORPUSCULAR HEMOGLOBIN CONC 34.1 GM/DL 32.2-35.5 (BEAKER) (test code = 752) RED CELL DISTRIBUTION WIDTH 12.7 % 11.7-14.4 (BEAKER) (test code = 412) PLATELET COUNT (BEAKER) (test 272 K/CU MM 150-450 code = 756) MEAN PLATELET VOLUME (BEAKER) 9.5 fL 9.4-12.3 (test code = 754) NUCLEATED RED BLOOD CELLS 0 /100 WBC 0-0 (BEAKER) (test code = 413) NEUTROPHILS RELATIVE PERCENT 79 % (BEAKER) (test code = 429) LYMPHOCYTES RELATIVE PERCENT 12 % (BEAKER) (test code = 430) MONOCYTES RELATIVE PERCENT 9 % (BEAKER) (test code = 431) EOSINOPHILS RELATIVE PERCENT 0 % (BEAKER) (test code = 432) BASOPHILS RELATIVE PERCENT 0 % (BEAKER) (test code = 437) NEUTROPHILS ABSOLUTE COUNT 7.56 K/ L 1.56-6.13 H (BEAKER) (test code = 670) LYMPHOCYTES ABSOLUTE COUNT 1.16 K/ L 1.18-3.74 L (BEAKER) (test code = 414) MONOCYTES ABSOLUTE COUNT (BEAKER) 0.87 K/ L 0.24-0.36 H (test code = 415) EOSINOPHILS ABSOLUTE COUNT 0.00 K/ L 0.04-0.36 L (BEAKER) (test code = 416) BASOPHILS ABSOLUTE COUNT (BEAKER) 0.00 K/ L 0.01-0.08 L (test code = 417) IMMATURE GRANULOCYTES-RELATIVE 0.50 % 0.00-1.00 PERCENT (BEAKER) (test code = 2801) POCT-GLUCOSE [id number] 21:01:10 Test Item Value Reference Range Interpretation Comments POC-GLUCOSE METER 123 mg/dL 70-110 H : TESTED Adrian T [facility] 6720 (BEAKER) (test code = ERIC [place], 1538) [address]: Roller Checker/Techni holley ID = [id number] for SANTOS MARKS POCT , [id number] 06:45:00 Test Item Value Reference Range Interpretation Comments Test Urine, POC (test code Negative = 4704464) Control line present?, POC (test Yes code = 9081658) Background clear?, POC (test code = Yes 6440651) UPT Cassette Lot #, POC (test code = 20110825 1159426) UPT Cassette Expiration Date, POC 67070 (test code = 8815065) [facility] , [id number] 06:45:00 Test Item Value Reference Range Interpretation Comments Test Urine, POC (test code Negative = 7190851) Control line present?, POC (test Yes code = 9390405) Background clear?, POC (test code = Yes 8499125) UPT Cassette Lot #, POC (test code = 20110825 4735334) UPT Cassette Expiration Date, POC 16142 (test code = 0152508) [facility] , [id number] 06:45:00 Test Item Value Reference Range Interpretation Comments Test Urine, POC (test code Negative = 6986648) Control line present?, POC (test Yes code = 4108514) Background clear?, POC (test code = Yes 6504134) UPT Cassette Lot #, POC (test code = 20110825 0227913) UPT Cassette Expiration Date, POC 17238 (test code = 9226346) [facility] , [id number] 06:45:00 Test Item Value Reference Range Interpretation Comments Test Urine, POC (test code Negative = 3538723) Control line present?, POC (test Yes code = 7258590) Background clear?, POC (test code = Yes 2161468) UPT Cassette Lot #, POC (test code = 20110825 9296485) UPT Cassette Expiration Date, POC 38785 (test code = 5928850) [facility] , [id number] 06:45:00 Test Item Value Reference Range Interpretation Comments Test Urine, POC (test code Negative = 2746336) Control line present?, POC (test Yes code = 4070781) Background clear?, POC (test code = Yes 1650124) UPT Cassette Lot #, POC (test code = 20110825 6541997) UPT Cassette Expiration Date, POC (test code = 1494140) [facility] [id number] 15:36:10 Test Item Value Reference Range Interpretation Comments POCT Molecular FluA (test code = Negative Negative 93525-5) POCT Molecular FluB (test code = Negative Negative 07599-4) Lab Interpretation (test code = Normal 85805-1) [facility] MOLECULAR [id number] 15:29:24 Test Item Value Reference Range Interpretation Comments POCT Molecular Strep (test code = Negative Negative 95167-5) Lab Interpretation (test code = Normal 94998-9) [facility][id number] 00:00:00 Test Item Value Reference Range Interpretation Comments SARS-CoV-2 INTERPRETATION (test NEGATIVE SEE NOTE code = 48468-9) SOURCE (test code = 04347-4) NOT SPECIFIED SARS-COV-2(COVID19),[id number] 00:00:00 Test Item Value Reference Range Interpretation Comments SARS-CoV-2 INTERPRETATION (test NEGATIVE SEE NOTE code = 27331-2) SOURCE (test code = 05095-7) NOT SPECIFIED Surgical pathology [id number] 10:00:00 Test Item Value Reference Range Interpretation Comments Surgical pathology see emr pathology study (test code = report. 18033-9) [facility] W Auto Differential panel - [id number] 02:29:00 Test Item Value Reference Range Interpretation Comments white blood count (test code = 10.1 K/uL 4.0-11.5 white blood count) red blood count (test code = red 4.86 M/uL 3.80-5.20 blood count) hemoglobin (test code = 14.1 g/dL 10.5-15.7 hemoglobin) hematocrit (test code = 41.9 % 34.0-50.0 hematocrit) MCV [Entitic volume] (test code = 86.2 fL 86-100 00505-4) mean corpuscular hemoglobin (test 29.0 pg 26.2-33.4 [...] 44.4-80.1 leukocytes in Blood (test code = 74933-6) Immature granulocytes [#/volume] 0.0 K/uL 0.0-0.03 in Blood (test code = 36910-8) lymphocyte% (test code = 27.4 % 10.0-50.0 lymphocyte%) mono % (test code = mono %) 7.4 % 3.6-12.0 eos % (test code = eos %) 2.7 % 0.0-5.4 Basophils/100 leukocytes in 0.6 % 0.1-1.2 Unspecified specimen (test code = 13462-6) Band form neutrophils [#/volume] 6.26 K/uL 1.56-6.13 H in Blood (test code = 50315-9) Lymphocytes [#/volume] in 2.8 K/uL 1.18-3.74 Unspecified specimen by Automated count (test code = 16437-1) mono # (test code = mono #) 0.75 K/uL 0.24-0.86 eos # (test code = eos #) 0.27 K/uL 0.04-0.36 basophil # (test code = basophil 0.06 K/uL 0.01-0.08 #) NRBC% (test code = NRBC%) 0 /100 WBC 0-0.2 NRBC# (test code = NRBC#) 0 K/[facility] - Serum [...] Serum or Plasma (test code = 6768-6) [facility] RNA [Presence] in Respiratory specimen by MARI with probe [id number] 02:15:4093351-6Qzmefjpbt Medical GroupDifferential panel, method unspecified - [id number] 00:00:00 NeutrophilsBandLymphocyteAtypical LymphMonocyteEosinophilBasophilMetamyelocyteMyelocytePromyelocyteBlastsNucleated Red Blood CellAbs Neutrophil Count (Man)Abs Lymph Count (Man)Abs Monocyte Count (Man)Abs Eosinophil Count (Man)Abs Basophil Count (Man)Platelet EstimatePlatelet MorphologyPolychromasiaMacrocytosisHypersegmented Polys [facility] Medical GroupChoriogonadotropin ( test) [Presence] in Serum or [id number] 00:00:00 Test Item Value Reference Range Interpretation Comments Choriogonadotropin.beta subunit negative neg ( test) [Presence] in Serum or Plasma (test code = 2110-5) [facility] GroupRAD, CHEST, 2 [id number] 13:30:00Reason for Exam:- >Severe persistent asthma without complication [facility] : 1995 Sex: FFINAL REPORT Exam: RAD, [...] pneumonia or pulmonary edema. Signed: Yvette Nguyen MDReport Verified Date/Time: 11/09/2020 13:30:42 XR Chest 2 [id number] 13:30:00Interface, External Ris In - 11/09/2020 1:32 PM CDTFINAL REPORT Exam: RAD, CHEST, 2 VIEWSDate: 11/09/2020 1:29 PM Indication: Severe persistent asthma Comparison: None FINDINGS: Line s/Tubes:None Lungs:The lungs are mildly hyperinflated. No focal [...] pneumonia or pulmonary edema. Signed: Yvette Nguyen MDReport Verified Date/Time: 11/09/2020 13:30:42 [facility] AntigenSARS-COV 2 Antigen
[2022-02-28] MEDS ORDERED: METOCLOPRAMIDE 10 MG/2mL INJ ONE (18:12)
[2022-02-28] MEDS ORDERED: dexAMETHasone 10 MG/ML VIAL ONE (18:13)
[2022-02-28] MEDS ORDERED: DIPHENHYDRAMINE 50 MG/ML VIAL ONE (18:13)
[2022-02-28] MEDS ORDERED: NA CHLORIDE 0.9% 1,000 ML ONE (18:13)
[2022-02-28 18:27] LABS: Urine Blood Negative (Negative); Urine Glucose Negative (Negative); Urine Protein 1+ (Negative); Urine Specific Gravity >=1.030 (1.005-1.030)
[2022-02-28] MEDS ORDERED: NA CHLORIDE 0.9% 100 ML IV ONE (18:56)
--- NOTE | 2022-02-28 19:46 | RAD REPORT ---
EXAM DESCRIPTION: CT - Head Brain Wo Cont - 02/28/2022 7:27 pm CLINICAL HISTORY: headache COMPARISON: No comparisons TECHNIQUE: Axial 5 mm thick images of the head were obtained without IV contrast. All CT scans are performed using dose optimization technique as appropriate and may include automated exposure control or mA/KV adjustment according to patient size. FINDINGS: No intracranial hemorrhage, mass, edema or shift of mid-line structures. No acute infarcti on changes seen. No abnormal extra-axial fluid collections. Ventricles are normal. Mastoid air cells and visualized portions of the paranasal sinuses are clear. No acute bony findings. IMPRESSION: Negative non-contrast CT head examination.
--- NOTE | 2022-02-28 19:51 | EDPHYS ---
Physician Documentation [facility] Name: Deric Barry Age: 26 yrs Sex: Female : 1995 Arrival Date: 02/28/2022 Time: 17:12 Bed 13 Private MD: ED Physician Washington Nelson HPI: 02/28 17:46 This 26 yrs old Female presents to ER via Ambulatory with complaints of Migraine. jmm 17:46 Is a 26-year-old female with history of asthma, ventricular septal defect, that jmm presents to the emergency department with complaints of ongoing headache beginning about a week ago per the patient. Patient is currently under the care of a neurologist and has an MRI scheduled for this further. Patient states in May her ceiling insulation blower performed an exam and had some concerns that she may have pseudotumor cerebri. Patient is approximately 1 month status post gastric sleeve and states that she still has not been able to eat or drink much and concerned she may also be dehydrated.. 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 - Social history:: Smoking status: Patient denies any tobacco usage or history of. ROS: 17:46 Constitutional: Negative for fever, chills, and weight loss, Cardiovascular: Negative jm for chest pain, palpitations, and edema, Respiratory: Negative for shortness of breath, cough, wheezing, and pleuritic chest pain. 17:46 Neuro: Positive for headache. 17:46 All other systems are negative. Exam: 17:46 Constitutional: This is a well developed, well nourished patient who is awake, alert, jmm and in no acute distress. Head/Face: atraumatic. Eyes: EOMI, no conjunctival erythema appreciated ENT: Moist Mucus Membranes Neck: Trachea midline, Supple Chest/axilla: Normal chest wall appearance and motion. Cardiovascular: Regular rate and rhythm. No edema appreciated Respiratory: Normal respirations, no respiratory distress appreciated Abdomen/GI: Non distended Back: Normal ROM Skin: General appearance color normal MS/ Extremity: Moves all extremities, no obvious deformities appreciated, no edema noted to the lower extremities Neuro: Awake and alert Psych: Behavior is normal, Mood is normal, Patient is cooperative and pleasant Vital Signs: 17:47 BP 93 / 47; Pulse 62; Resp 15; Temp 99; Pulse Ox 100% ; Weight 91.63 kg; Height 5 ft. 1 vg1 in. (154.94 cm); Pain 6/10; 18:55 BP 103 / 73; Pulse 70; Resp 16; Pulse Ox 100% on R/A; kr3 19:48 BP 107 / 65; Pulse 61; Resp 16; Pulse Ox 100% on R/A; kr3 17:47 Body Mass Index 38.17 (91.63 kg, 154.94 cm) vg1 MDM: 17:46 Patient medically screened. [facility] 19:50 Data reviewed: vital signs, nurses notes. Counseling: I had a detailed discussion with [facility] the patient and/or guardian regarding: the historical points, exam findings, and any diagnostic results supporting the discharge/admit diagnosis, radiology results, the need for outpatient follow up, to return to the emergency department if symptoms worsen or persist or if there are any questions or concerns that arise at home. ED course: Headache is relieved in the ED. Patient advised to follow-up with her neurologist. Patient states she does feel much better. And otherwise given strict return precautions. Patient understood agrees plan of care. 02/28 18:28 Order name: Urine Dipstick-Ancillary; Complete Time: 18:32 [facility] 02/28 17:53 Order name: CT Head Brain wo Cont; Complete Time: 19:48 [facility] 02/28 17:47 Order name: Saline Lock; Complete Time: 18:23 [facility] 02/28 17:47 Order name: Urine Test (obtain specimen); Complete Time: 18:51 [facility] Administered Medications: 18:50 Drug: NS 0.9% 1000 ml Route: IV; Rate: 1000 ml; Site: right forearm; kr3 20:06 Follow up: Response: No adverse reaction; IV Intake: 700ml kr3 18:50 Drug: diphenhydrAMINE 12.5 mg Route: IVP; Site: right forearm; kr3 20:06 Follow up: Response: No adverse reaction kr3 18:51 Drug: Decadron - Dexamethasone 10 mg Route: IVP; Site: right forearm; kr3 20:06 Follow up: Response: No adverse reaction kr3 19:02 Drug: Reglan (metoCLOPramide) 20 mg Route: IVP; Site: right forearm; kr3 20:06 Follow up: Response: No adverse reaction kr3 Disposition: 03/01 07:04 Co-signature as Attending Physician, Washington Nelson MD. rn Disposition Summary: 02/28/22 19:51 Discharge Ordered Location: Home jm Condition: Stable jmm Diagnosis - Headache jmm Followup: jmm - With: Private Physician - When: 2 - 3 days - Reason: Recheck today's complaints, Continuance of care, Re-evaluation by your physician Discharge Instructions: - Discharge Summary Sheet jmm - General Headache Without Cause jmm - Idiopathic Intracranial Hypertension jm Forms: - Medication Reconciliation Form jmm - Thank You Letter jmm - Antibiotic Education jmm - Prescription Opioid Use [facility] Signatures: Dispatcher [employer] EDJerman Roque PA PA Washington Covarrubias MD MD rn Garcia, Victoria RN RN vg1 Rowena Wyman RN RN kr3
--- NOTE | 2022-02-28 19:51 | ER ---
Nurse's Notes [facility] Name: Deric Barry Age: 26 yrs Sex: Female : 1995 Arrival Date: 02/28/2022 Time: 17:12 Bed 13 Private MD: Diagnosis: Headache Presentation: 02/28 17:47 Chief complaint: Patient states: "intense migraine for about a week" Stated blurred vg1 vision and nausea. Coronavirus screen: Vaccine status: Patient reports receiving the 2nd dose of the covid vaccine. Client denies travel out of the [place] in the last 14 days. Ebola Screen: Patient negative for fever greater than or equal to 101.5 degrees Fahrenheit, and additional compatible Ebola Virus Disease symptoms. Initial Sepsis Screen: Does the patient meet any 2 criteria? No. Patient's initial sepsis screen is negative. Does the patient have a suspected source of infection? No. Patient's initial sepsis screen is negative. Risk Assessment: Do you want to hurt yourself or someone else? Patient reports no desire to harm self or others. Onset of symptoms was February 21, 2022. 17:47 Method Of Arrival: Ambulatory vg1 17:47 Acuity: DOLLY 3 vg1 Triage Assessment: 17:52 General: Appears uncomfortable, Behavior is calm, cooperative. Pain: Complains of pain vg1 in head Pain currently is 6 out of 10 on a pain scale. Neuro: Level of Consciousness is awake, alert, obeys commands, Oriented to person, place, time, situation, Reports blurred vision headache Denies weakness dizziness. 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 - Social history:: Smoking status: Patient denies any tobacco usage or history of. Screenin:02 Abuse screen: Denies threats or abuse. Nutritional screening: No deficits noted. kr3 Tuberculosis screening: No symptoms or risk factors identified. Fall Risk IV access (20 points). Total Rachel Fall Scale indicates No Risk (0-24 pts). Assessment: 17:55 General: Appears in no apparent distress. uncomfortable, Behavior is calm, cooperative, kr3 appropriate for age. Pain: Complains of pain in headache. Neuro: Level of Consciousness is awake, alert, obeys commands, Oriented to person, place, time, situation. Cardiovascular: Patient's skin is warm and dry. Respiratory: Airway is patent Respiratory effort is even, unlabored, Respiratory pattern is regular, symmetrical. GI: Abdomen is round non-distended. : No signs and/or symptoms were reported regarding the genitourinary system. EENT: No signs and/or symptoms were reported regarding the EENT system. Derm: Skin is intact, is healthy with good turgor, Skin is dry, Skin is pink, warm \\T\\ dry. Skin temperature is warm. Musculoskeletal: Circulation, motion, and sensation intact. Range of motion: intact in all extremities. 18:55 Reassessment: No changes from previously documented assessment. Patient and/or family kr3 updated on plan of care and expected duration. Pain level reassessed. Patient is alert, oriented x 3, equal unlabored respirations, skin warm/dry/pink. 19:47 Reassessment: Patient and/or family updated on plan of care and expected duration. Pain kr3 level reassessed. Patient states symptoms have improved. patient resting with eyes closed. Vital Signs: 17:47 BP 93 / 47; Pulse 62; Resp 15; Temp 99; Pulse Ox 100% ; Weight 91.63 kg; Height 5 ft. 1 vg1 in. (154.94 cm); Pain 6/10; 18:55 BP 103 / 73; Pulse 70; Resp 16; Pulse Ox 100% on R/A; kr3 19:48 BP 107 / 65; Pulse 61; Resp 16; Pulse Ox 100% on R/A; kr3 17:47 Body Mass Index 38.17 (91.63 kg, 154.94 cm) vg1 ED Course: 17:12 Patient arrived in ED. rg4 17:13 Jerman Ford PA is PHCP. [facility] 17:13 Washington Nelson MD is Attending Physician. [facility] 17:52 Triage completed. vg1 17:52 Arm band placed on. vg1 17:57 Rowena Wyman, WILL is Primary Nurse. kr3 17:58 Placed in gown. Bed in low position. Call light in reach. Side rails up X 1. kr3 18:15 Inserted saline lock: 22 gauge in right antecubital area, using aseptic technique. kr3 18:15 IV discontinued, redness and burning with NS bolus. kr3 18:20 Inserted saline lock: 22 gauge in right forearm, using aseptic technique. ,using kr3 aseptic technique. by Luis Carlos Charles RN. 19:29 CT Head Brain wo Cont In Process Unspecified. EDMS 20:02 No provider procedures requiring assistance completed. IV discontinued, intact, kr3 bleeding controlled, No redness/swelling at site. Pressure dressing applied. Administered Medications: 18:50 Drug: NS 0.9% 1000 ml Route: IV; Rate: 1000 ml; Site: right forearm; kr3 20:06 Follow up: Response: No adverse reaction; IV Intake: 700ml kr3 18:50 Drug: diphenhydrAMINE 12.5 mg Route: IVP; Site: right forearm; kr3 20:06 Follow up: Response: No adverse reaction kr3 18:51 Drug: Decadron - Dexamethasone 10 mg Route: IVP; Site: right forearm; kr3 20:06 Follow up: Response: No adverse reaction kr3 19:02 Drug: Reglan (metoCLOPramide) 20 mg Route: IVP; Site: right forearm; kr3 20:06 Follow up: Response: No adverse reaction kr3 Medication: 20:05 VIS not applicable for this client. kr3 Intake: 20:06 IV: 700ml; Total: 700ml. kr3 Outcome: 19:51 Discharge ordered by . cheri 20:04 Discharged to home ambulatory. kr3 20:04 Condition: stable 20:04 Discharge instructions given to patient, Instructed on discharge instructions, follow up and referral plans. Demonstrated understanding of instructions, follow-up care. 20:05 Patient left the ED. kr3 Signatures: Dispatcher [employer] EDMS Jerman Ford PA PA jmm Garcia, Rubi rg4 Dia Rizo RN RN vg1 Rowena Wyman, RN RN kr3 Corrections: (The following items were deleted from the chart) 20:03 20:02 Inserted saline lock: 22 gauge in right antecubital area, using aseptic kr3 technique. kr3
[2022-03-01 01:00] VITALS: TEMP 99; O2SAT 100
[2022-03-01 01:01] VITALS: BP 103/73
== END 2022-02-28 20:05 | disposition home or self-care (01) ==
LOC: ER 17:09
DX: R51.9 Headache, unspecified (principal); Z88.8 Allergy status to other drugs, medicaments and biological substances; Z91.010 Allergy to peanuts
CPT/HCPCS: 81003; 70450; 96375; 96374; 99283; J2765; J1200; J1100; J7030

== ENCOUNTER 2022-08-29 17:06 | Emergency (ER) | payer OTHER ==
--- OUTSIDE RECORDS SUMMARY | 2022-08-29 17:14 | XMS REPORT | Continuity of Care Document ---
:1995 Author Organization [facility] t Address [address] [address] [place] [address] Care Team Providers Name Role Phone NITHYA ZAMAN Primary Care Physician Unavailable Nithya Zaman Attending Clinician Unavailable ALYSE DE LEON Attending Clinician Unavailable ALYSE DE LEON Attending Clinician Unavailable ERIN WATTS Attending Clinician Unavailable MYRANDA SCHWARZ Attending Clinician Unavailable Myranda Schwarz MD Attending Clinician Unknown, Attending Attending Clinician Unavailable EVENS VAUGHAN Attending Clinician Unavailable Vladislav Pringle Attending Clinician IRENE MAURICIO Attending Clinician Unavailable Ebrahihardy MOBILE SERVICE RV TECHNICIAN, Irene Attending Clinician Doctor Unassigned, Dovray Attending Clinician Unavailable SANTIAGO AMEZUCA Attending Clinician Unavailpaula e Jose CHAPMAN, Santiago Jones Attending Clinician [phone] Vidhi Lacy MD Attending Clinician [phone] Alexus DAO, Evens Wall Attending Clinician [phone] EVENS VAUGHAN Attending Clinician Unavailable AMADEO VALDOVINOS Attending Clinician Unavailable CHRISTIAN VALDEZ Attending Clinician Unavailable SANTIAGO AMEZCUA Attending Clinician Unavailable Amalia CHAPMAN, Blanca Sands Attending Clinician [phone] Tatiana OPERATIONS BUSINESS PARTNER, Christian Bennett Attending Clinician Santiago Amezcua MD Attending Clinician [phone] Attending Clinician Natalia Naik Attending Clinician NATALIA TABOR Attending Clinician Unavailable AHMET ORTIZ Attending Clinician Unavailable NITO Attending Clinician Unavailable DEMARCUS ALONSO Attending Clinician Unavailable Kirti Lala MD Attending Clinician Demarcus Alonso MD Attending Clinician Addy Bruce MD Attending Clinician AMADEO VALDOVINOS Attending Clinician Unavailable Amadeo Valdovinos MD Attending Clinician [phone] IVORY OLMOS Attending Clinician Unavailable Lucy AIRCRAFT MAINTENANCE DIRECTOR, PICKED EDGE SEWING MACHINE OPERATOR, Erin Oreilly Attending Clinician Unavailable GENEVIEVE SYKES Attending Clinician Unavailable ELIANE Attending Clinician Unavailable Brando Ibrahim MD Attending Clinician BRANDO IBRAHIM Attending Clinician Unavailable BRANDO IBRAHIM Attending Clinician Unavailable ADDY BRUCE Attending Clinician Unavailable Pedro Seals MD Attending Clinician Patrice CHAPMAN, Brando Attending Clinician Stephanie CHAPMAN, Mile Attending Clinician Jimmie CHAPMAN, Josi Mallory Attending Clinician JOSI RG Attending Clinician Unavailable Frank CHAPMAN, Viral Rolon Attending Clinician [phone] SANTIAGO AMEZCUA Admitting Clinician Unavailabl e NITO Admitting Clinician Unavailable IHDE_G Admitting Clinician Unavailable Payers Payer Name Policy Type Policy Number Effective Date Expiration Date S [facility]le[facility] [id number] 2019 [facility] 00:00:00 PLAN [facility]-MEDICAID - [id number] 2016 2016 MEDICAID 00:00:00 00:00:00 MEDICAID [facility] [id number] 2019 00:00:00 [facility] [id number] 00:[facility]00 (MEDICAID O) Problems Condition Condition Condition Status Onset Resolution Last Treating Co mments Source Name Details Category Date Date Treatment Clinician Date S/P S/P Disease Active 2021-03 Overview: [facility] laparoscop laparoscop 04-21 [facility] ic sleeve ic sleeve 00:00: g of this o f gastrectom gastrectom 00 note Me dicin y 01/29/22 y 01/29/22 might be e different from the original. 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 Doing well post partumEnc ouraged to cont inhaler useInhale r tech demonstra tedProvid ed refills and PFM SARAH SARAH Disease Active 2012-03 Last [facility] (obstructi (obstructi 05-03 [facility] ve sleep ve sleep 00:00: t & Plan: of apnea) apnea) 00 Formattin Medicin g of this e note might be different from the original. Received her air sense 11 machine in [facility] good subjectiv e complianc e, still adjusting We do not have remote access, cannot get a download. Will try to get remote access, if we cannot have it, patient will need to bring her machine.P atient is getting the benefit of the machine.R ecommenda tions:-c/ w Auto CPAP-equi pment download- weight loss-regu lar exercise- will follow up within 2 months for complianc e.-[place] in postopera tive SARAH patients in the upright or semi-upri ght position, if not contraind icated by the surgical procedure . The lateral position is an alternati ve.-avoid or minimize the postopera tive use of opioids-P atient was instructe d to bring the CPAP [...] procedure s Atopic Atopic Disease Active Overview: Univer s dermatitis dermatitis 5-10 Formattin ity of and and 00:00: g of this [place] related related 00 note Medical condition condition might be Br anch different from the original. 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 ICD10 Diagnosis Term Residential Real Estate Sales Manager Utility Other Other Disease Active Univers allergy, allergy, 5-10 ity of other than other than [place] 00 Medical medicinal medicinal Bran ch agents agents Disorder Disorder Disease Active Overview: Un sally of skin or of skin or 5-10 Formattin ity of subcutaneo subcutaneo 00:00: g of this [place] us tissue us tissue 00 note Medi jocelynn might be Branch different from the original. 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 Diagnosis Term Residential Real Estate Sales Manager Utility Uncomplica Uncomplica Problem C ommon jose a asthma jose a asthma Sp katarzyna [facility] [id number] Depression Problem Co mmon with [facility] anxiety [facility] [id number] Dry cough Problem Comm on [facility] Allergic Seasonal Problem Commo n rhinitis and Spirit perennial [facility] allergic [facility] Heart Heart Problem Common disease disease [facility] Constipati Constipati Problem C ommon on on [facility] [id number] Congestion Problem Com mon of nasal Spirit sinus [facility] [id number] Body mass Problem Com mon index [facility] [BMI] [facility] 35.0-35.9, [facility] [id number] Other Problem Common obesity Spirit due to - [facility] excess [facility] [id number] Visual Problem Common color [facility] changes [facility] Allergies, Adverse Reactions, Alerts Allergy Allergy Status Severity Reaction(s) Onset Inactive Treating Comm ents Source Name Type Date Date Clinician Tiotropi Propensi Active Itching 2013-03 [facility] ty to 0-03 College adverse 00:00: of reaction 00 Medicin s to e drug TIOTROPI DRUG Active Low ITCHING 2013-03 Univers UM INGREDI 0-03 ity of 00:00: [place] 00 [facility] Tiotropi Drug Active Itching 2013-03 Univers um Allergy 0-03 ity of 00:00: [place] 00 Medical Branch TIOTROPI Allergy Active Low Itching 2013-[address] [facility] [facility] Spiriva Propensi Active Hives [facility] Handihal ty to 09-30 Summer Set er adverse 00:00: of reaction 00 Medicin s to e drug NO KNOWN Drug Active Univers ALLERGIE Class ity of S [facility] Spiriva Allergy Active [place] with to da Handihal substanc Medica l er e Group Social History Social Habit Start Date Stop Date Quantity Comments Source History SDKS [facility]-Med Medical [facility] History SDOH [facility] Alcohol Std Medical Cente r Drinks History SDKS [facility] Alcohol Binge Medical [facility] History SDKS [facility] Alcohol Comment Medical C enter History of Common Spirit - Tobacco Use [facility] Exposure to 2022-06-23 2022-07-03 Not sure University SARS-CoV-2 00:00:00 10:01:00 [place] [facility] (event) Aniwa Alcohol intake 2022-04-23 2022-04-[address] [facility] 00:00:00 00:00:00 non-drinker Medical Cente r (finding) History [facility] 2022-01-29 2022-01-[address] [facility] Transport Med 00:00:00 00:00:[address] History [facility] 2022-01-29 2022-01-[address] [facility] Housing Unable to 00:00:00 00:00:00 Medical Center Pay History [facility] 2022-01-29 2022-01-[address] [facility] Housing Places 00:00:00 00:00:00 Medical Ce nter Lived History [facility] 2022-01-29 2022-01-[address] [facility] Housing Homeless 00:00:00 00:00:00 Medical Center Last Year History [facility] 2022-01-19 2022-01-[address] [facility] Alcohol Frequency 00:00:00 00:00:00 Medical Center Tobacco use and 2021-12-31 2021-12-31 Smokeless tobacco Un iversity of exposure 00:00:00 00:00:00 non-user [facility] [place] [facility] Sex Assigned At [birth year] [facility] 00:00:00 00:00:00 Medical Center Smoking Status Start Date Stop Date Source Never smoked tobacco [facility] Medications Ordered Filled Start Stop Current Ordering Indication Dosage Frequency Signature Comments Components Source Medication Medication Date Date Medication? Clinician (SIG) Name Name fluocinolon Yes [id number] Apply to Univers e 4-11 area(s) 2 ity of (DERMA-SMOO 00:00: (two) [place] THE/FS BODY 00 times Medical OIL) 0.01 % daily as Bran ch body oil needed for Rash. hydrocortis Yes [id number] Apply to Univers one 2.5 % 4-11 affected ity of cream 00:00: area(s) 2 [place] (two) Medical times Branch daily as needed for Rash (face, thinner areas). ketoconazol Yes [id number] Apply to Univers e 2 % 4-11 area(s) ity of shampoo 00:00: every [place] 00 other day. Medical Branch fluocinolon Yes [id number] Apply to Univers e 4-11 area(s) 2 ity of (DERMA-SMOO 00:00: (two) [place] THE/FS BODY 00 times Medical OIL) 0.01 % daily as Bran ch body oil needed for Rash. hydrocortis Yes [id number] Apply to Univers one 2.5 % 4-11 affected ity of cream 00:00: area(s) 2 [place] (two) Medical times Branch daily as needed for Rash (face, thinner areas). ketoconazol 0 Yes [id number] Apply to Univers e 2 % 4-11 area(s) ity of shampoo 00:00: every [place] 00 other day. Medical Branch bumetanide Yes 1 tablet Uni vers 0.5 mg 2-21 Orally ity of tablet 19:26: Once a day [place] [address] PRN Medical Branch bumetanide 0 Yes 1 tablet Uni vers 0.5 mg 2-21 Orally ity of tablet 19:26: Once a day PRN Medical Branch bumetanide Yes 1 tablet Uni vers 0.5 mg 2-21 Orally ity of tablet 19:26: Once a day [address] Branch methylPREDN 0 Yes [id number] Take by Univers ISolone 2-21 mouth ity of (MEDROL, 00:00: SEE-INSTRU Justino as TERESA,) 4 mg 00 CTIONS. Medica l tablets follow Branch package directions lidocaine 0 Yes [id number] Apply with Univers 2% viscous 2-21 q tip to ity o f (LIDOCAINE 00:00: painful [place] VISCOUS) 2 00 areas in Medic al % solution mouth. Branch methylPREDN Yes [id number] Take by Univers ISolone 2-21 mouth ity of (MEDROL, 00:00: SEE-INSTRU Justino as TERESA,) 4 mg 00 CTIONS. Medica l tablets follow Branch package directions lidocaine Yes [id number] Apply with Univers 2% viscous 2-21 q tip to ity o f (LIDOCAINE 00:00: painful [place] VISCOUS) 2 00 areas in Medic al % solution mouth. Branch methylPREDN Yes [id number] Take by Univers ISolone 2-21 mouth ity of (MEDROL, 00:00: SEE-INSTRU Justino as TERESA,) 4 mg 00 CTIONS. Medica l tablets follow Branch package directions lidocaine 0 Yes [id number] Apply with Univers 2% viscous 2-21 q tip to ity o f (LIDOCAINE 00:00: painful [place] VISCOUS) 2 00 areas in Medic al % solution mouth. Branch metroNIDAZO 3- No [id number] 500mg Take 1 Univers LE (FLAGYL) 2-07 24- tablet by it y of 500 mg 00:00: 05:59 mouth [place] tablet 00 :00 every 12 Medical (twelve) Branch hours for 7 days. albuterol Yes 1{puff} Inhale [address] HFA 1-30 puff by [facility] (VENTOLIN 09:29: mouth via Med ical HFA) 90 22 inhaler Center mcg/actuati every 6 on inhaler (six) hours as needed for Wheezing. linaCLOtide 0 Yes 145ug QD Take [address] (Linzess) 1-30 mcg by [facility] 145 mcg Cap 09:29: mouth Medic al 22 daily. Center pantoprazol Yes 40mg QD Take [address] [facility] e 1-30 by mouth [facility] (PROTONIX) 09:29: daily. Medic al 40 MG 22 Center tablet bumetanide Yes 1mg Take [address] (BUMEX) 1 1-30 by mouth [facility] MG tablet 09:29: as needed Med ical 22 . Center fluticasone Yes 2{puff} Inhale [address] propion-jena 1-30 puffs by Luke s meteroL 09:29: mouth via Medic al (ADVAIR 22 inhaler as Center HFA) 230-21 needed . mcg/actuati on inhaler albuterol Yes 1{puff} Inhale [address] HFA 1-30 puff by [facility] (VENTOLIN 09:29: mouth via Med ical HFA) 90 22 inhaler Center mcg/actuati every 6 on inhaler (six) hours as needed for Wheezing. linaCLOtide Yes 145ug QD Take [address] (Linzess) 1-30 mcg by [facility] 145 mcg Cap 09:29: mouth Medic al 22 daily. Center pantoprazol Yes 40mg QD Take [address] e 1-30 by mouth [facility] (PROTONIX) 09:29: daily. Medic al 40 MG 22 Center tablet bumetanide Yes 1mg Take [address] (BUMEX) 1 1-30 by mouth [facility] MG tablet 09:29: as needed Med ical 22 . Center fluticasone Yes 2{puff} Inhale [address] propion-jena 1-30 puffs by Luke s meteroL 09:29: mouth via Medic al (ADVAIR 22 inhaler as Center HFA) 230-21 needed . mcg/actuati on inhaler albuterol Yes 1{puff} Inhale [address] HFA 1-30 puff by [facility] (VENTOLIN 09:29: mouth via Med ical HFA) 90 22 inhaler Center mcg/actuati every 6 on inhaler (six) hours as needed for Wheezing. linaCLOtide 0 Yes 145ug QD Take [address] (Linzess) 1-30 mcg by [facility] 145 mcg Cap 09:29: mouth Medic al 22 daily. Center pantoprazol 0 Yes 40mg QD Take [address] e 1-30 by mouth [facility] (PROTONIX) 09:29: daily. Medic al 40 MG 22 Center tablet bumetanide 0 Yes 1mg Take [address] (BUMEX) 1 1-30 by mouth [facility] MG tablet 09:29: as needed Med ical 22 . Center fluticasone 0 Yes 2{puff} Inhale [address] propion-jena 1-30 puffs by Luke s meteroL 09:29: mouth via Medic al (ADVAIR 22 inhaler as Center HFA) 230-21 needed . mcg/actuati on inhaler albuterol 0 Yes 1{puff} Inhale [address] HFA 1-30 puff by [facility] (VENTOLIN 09:29: mouth via Med ical HFA) 90 22 inhaler Center mcg/actuati every 6 on inhaler (six) hours as needed for Wheezing. linaCLOtide 0 Yes 145ug QD Take [address] (Linzess) 1-30 mcg by [facility] 145 mcg Cap 09:29: mouth Medic al 22 daily. Center pantoprazol Yes 40mg QD Take [address] e 1-30 by mouth [facility] (PROTONIX) 09:29: daily. Medic al 40 MG 22 Center tablet bumetanide Yes 1mg Take [address] (BUMEX) 1 1-30 by mouth [facility] MG tablet 09:29: as needed Med ical 22 . Center fluticasone 0 Yes 2{puff} Inhale [address] propion-jena 1-30 puffs by Luke s meteroL 09:29: mouth via Medic al (ADVAIR 22 inhaler as Center HFA) 230-21 needed . mcg/actuati on inhaler sucralfate 0 Yes Univers 1 gram 1-30 ity of tablet 00:00: [address] sucralfate 2022-0 Yes Univers 1 gram 1-30 ity of tablet 00:00: [address] sucralfate 2022-0 Yes Univers 1 gram 1-30 ity of tablet 00:00: [address] sucralfate 0 Yes Univers 1 gram 1-30 ity of tablet 00:00: [place] 00 Medical Branch sucralfate 3-0 Yes Univers 1 gram 1-30 ity of tablet 00:00: [place] 00 Medical Branch sucralfate 2022-0 Yes Univers 1 gram 1-30 ity of tablet 00:00: [place] 00 Medical Branch sucralfate 2022-0 2024- No 1g Q.25D Take [address] (CARAFATE) 1-30 01-30 tablet (1 [place] [facility] 1 gram 00:00: 23:59 g total) Medica l tablet 00 :00 by mouth 4 Center (four) times daily. sucralfate 2022-0 2024- No 1g Q.25D Take [address] (CARAFATE) 1-30 01-30 tablet (1 [place] [facility] 1 gram 00:00: 23:59 g total) Medica l tablet 00 :00 by mouth 4 Center (four) times daily. sucralfate 2022-0 4- No 1g Q.25D Take [address] (CARAFATE) 1-30 01-30 tablet (1 [place] [facility] 1 gram 00:00: 23:59 g total) Medica l tablet 00 :00 by mouth 4 Center (four) times daily. sucralfate 2022-0 2024- No 1g Q.25D Take [address] (CARAFATE) 1-30 01-30 tablet (1 [place] [facility] 1 gram 00:00: 23:59 g total) Medica l tablet 00 :00 by mouth 4 Center (four) times daily. pantoprazol 2022-0 Yes 40mg Take 40 mg Univers e 40 mg EC 1-06 by mouth ity o f tablet 00:00: every [place] [address] morning. Medical Branch pantoprazol 2022-0 Yes 40mg Take 40 mg Univers e 40 mg EC 1-06 by mouth ity o f tablet 00:00: every [place] 00 morning. Medical Branch pantoprazol 2022-0 Yes 40mg Take 40 mg Univers e 40 mg EC 1-06 by mouth ity o f tablet 00:00: every [place] 00 morning. Medical Branch pantoprazol 2022-0 Yes 40mg Take 40 mg Univers e 40 mg EC -06 by mouth ity o f tablet 00:00: every [place] 00 morning. Medical Branch pantoprazol 2023-0 Yes 40mg Take 40 mg Univers e 40 mg EC 06 by mouth ity o f tablet 00:00: every [place] 00 morning. Medical Branch pantoprazol Yes 40mg Take 40 mg Univers e 40 mg EC 06 by mouth ity o f tablet 00:00: every [place] 00 morning. Medical Branch norethindro 2021-03 Yes 1{tbl} Take 1 Un sally ne 0.35 mg 2-13 tablet by ity of tablet 00:00: mouth [place] 00 every Medical morning. Branch norethindro 2021-03 Yes 1{tbl} Take 1 Un sally ne 0.35 mg 2-13 tablet by ity of tablet 00:00: mouth [place] 00 every Medical morning. Branch norethindro 2021-03 Yes 1{tbl} Take 1 Un sally ne 0.35 mg 2-13 tablet by ity of tablet 00:00: mouth [place] 00 every Medical morning. Branch norethindro 2021-03 Yes 1{tbl} Take 1 Un sally ne 0.35 mg 2-13 tablet by ity of tablet 00:00: mouth [place] 00 every Medical morning. Branch norethindro 2021-03 Yes 1{tbl} Take 1 Un sally ne 0.35 mg 2-13 tablet by ity of tablet 00:00: mouth [place] 00 every Medical morning. Branch norethindro 2021-03 Yes 1{tbl} Take 1 Un sally ne 0.35 mg 2-13 tablet by ity of tablet 00:00: mouth [place] 00 every Medical morning. Branch famotidine 2021-03 Yes TAKE 1 Unive rs 20 mg 2-12 TABLET BY ity of tablet 00:00: MOUTH [place] 00 EVERY Medical MORNING Branch BEFORE BREAKFAST famotidine 2021-03 Yes TAKE 1 Unive rs 20 mg 2-12 TABLET BY ity of tablet 00:00: MOUTH [place] 00 EVERY Medical MORNING Branch BEFORE BREAKFAST famotidine 2021-03 Yes TAKE 1 Unive rs 20 mg 2-12 TABLET BY ity of tablet 00:00: MOUTH [place] 00 EVERY Medical MORNING Branch BEFORE BREAKFAST famotidine 2021-03 Yes TAKE 1 Unive rs 20 mg 2-12 TABLET BY ity of tablet 00:00: MOUTH [place] 00 EVERY Medical MORNING Branch BEFORE BREAKFAST famotidine 2022-1 Yes TAKE 1 Unive rs 20 mg 2-12 TABLET BY ity of tablet 00:00: MOUTH [place] 00 EVERY Medical MORNING Branch BEFORE BREAKFAST famotidine 2021-03 Yes TAKE 1 Unive rs 20 mg 2-12 TABLET BY ity of tablet 00:00: MOUTH [place] 00 EVERY Medical MORNING Branch BEFORE BREAKFAST Fluocinolon 2021-03 Yes [employer] [place] Acetonide 1-22 the/FS Colleg e Body 0.01 % 16:28: Body Oil of OIL 36 0.01 % Medicin e Multiple 2021-03 Yes 1{tbl} Take 1 [facility] Vitamins-Mi 1-22 Tablet by Col lege nerals 16:28: mouth of (MULTI-DEVIN 36 daily. Medici n MIN Adina e GUMMIES) Vitamins CHEW Fluocinolon 2021-03 Yes [employer] [place] Acetonide -22 the/FS Colleg e Body 0.01 % 16:28: [...] MG tablet 18:50: daily. Medica l 05 Center fluticasone 2021-03 Yes 2{puff} Q.5D Inhale [...] MG tablet 18:50: daily. Medica l 05 [place] fluticasone 2021-03 Yes 2{puff} Q.5D Inhale 2 [...] Cap 18:50: mouth Medic al 05 daily. [place] bumetanide 2021-03 Yes 1mg QD Take [address] (BUMEX) 1 1-08 by mouth [facility] MG tablet 18:50: daily. Medica l 05 [place] fluticasone 2021-03 Yes 2{puff} Q.5D Inhale 2 [...] Cap 18:50: mouth Medic al 05 daily. [place] bumetanide 2021-03 Yes 1mg QD Take [address] (BUMEX) 1 1-08 by mouth [facility] MG tablet 18:50: daily. Medica l 05 [place] fluticasone 2021-03 Yes 2{puff} Q.5D Inhale 2 [...] Cap 18:50: mouth Medic al 05 daily. [place] bumetanide 2021-03 Yes 1mg QD Take [address] (BUMEX) 1 1-08 by mouth [facility] MG tablet 18:50: daily. Medica l 05 [place] fluticasone 2021-03 Yes 2{puff} Q.5D Inhale [address] propion-jena 1-08 puffs by Luke s meteroL 18:50: mouth via Medic al (ADVAIR 05 inhaler 2 [place] HFA) 230-21 (two) mcg/actuati times on inhaler [...] MG tablet 18:50: daily. Medica l 05 Center fluticasone 2021-03 Yes 2{puff} Q.5D Inhale [...] MG tablet 18:50: daily. Medica l 05 [place] fluticasone 2021-03 Yes 2{puff} Q.5D Inhale 2 [...] MG tablet 18:50: daily. Medica l 05 Center fluticasone 2021-03 Yes 2{puff} Q.5D Inhale [...] MG tablet 18:50: daily. Medica l 05 Center fluticasone 2021-03 Yes 2{puff} Q.5D Inhale [...] 18:50: mouth Medic al 05 daily. Center ondansetron 2021-03- No 4mg Take [address] [facility] [address] (ZOFRAN) 4 04-01 11-08 by mouth 2 Donna kes MG tablet 16:27: 00:00 (two) Medica l 03 :00 times Center daily as needed for Nausea. ondansetron 2021-03- No 4mg Take [address] (ZOFRAN) 4 04-01 11-08 by mouth 2 Donna kes MG tablet 16:27: 00:00 (two) Medica l 03 :00 times Center daily as needed for Nausea. ondansetron 2021-03 No 4mg Take [address] [address] (ZOFRAN) 4 04-01 11-08 by mouth 2 Donna kes MG tablet 16:27: 00:00 (two) Medica l 03 :00 times Center daily as needed for Nausea. ondansetron 2021-03- No 4mg Take [address] (ZOFRAN) 4 1-08 11-08 by mouth 2 Donna kes MG tablet 16:27: 00:00 (two) Medica l 03 :00 times Center daily as needed for Nausea. ondansetron 2021-03- No 4mg Take [address] (ZOFRAN) 4 1-08 11-08 by mouth 2 Donna kes MG tablet 16:27: 00:00 (two) Medica l 03 :00 times Center daily as needed for Nausea. ondansetron 2021-03- No 4mg Take [address] (ZOFRAN) 4 1-08 11-08 by mouth 2 Donna kes MG tablet 16:27: 00:00 (two) Medica l 03 :00 times Center daily as needed for Nausea. ondansetron 2021-03- No 4mg Take [address] (ZOFRAN) 4 1-11 02-08 by mouth 2 Donna kes MG tablet 16:27: 00:00 (two) Medica l 03 :00 times Center daily as needed for Nausea. ondansetron 2021-03- No 4mg Take [address] (ZOFRAN) 4 1-11 02-08 by mouth 2 Donna kes MG tablet 16:27: 00:00 (two) Medica l 03 :00 times Center daily as needed for Nausea. ondansetron 2021-03- No 4mg Take [address] (ZOFRAN) 4 1- 11-08 by mouth 2 Donna kes MG tablet 16:27: 00:00 (two) Medica l 03 :00 times Center daily as needed for Nausea. ondansetron 2021-03- No 4mg Take [address] (ZOFRAN) 4 1-08 11-08 by mouth 2 Donna kes MG tablet 16:27: 00:00 (two) Medica l 03 :00 times Center daily as needed for Nausea. ondansetron 2021-03- No 4mg Take [address] (ZOFRAN) 4 1-08 11-08 by mouth 2 Donna kes MG tablet 16:27: 00:00 (two) Medica l 03 :00 times Center daily as needed for Nausea. ondansetron 2021-03- No 4mg Take [address] (ZOFRAN) 4 04-0108 by mouth 2 Donna kes MG tablet 16:27: 00:00 (two) Medica l 03 :00 times Center daily as needed for Nausea. ondansetron 2021-03 No 4mg Take [address] (ZOFRAN) 4 04-0108 by mouth 2 Donna kes MG tablet [...] by mouth. Isabell ege MG tablet 00:00: 00 Medicin e ondansetron 2021-03 Yes 4mg Take 4 mg [facility] (ZOFRAN) 4 1-08 by mouth. Isabell ege MG tablet 00:00: Medicin e ondansetron 2021-03 Yes Univer s 4 mg tablet 1-08 ity of 00:00: [address] Branch ondansetron 2021-03 Yes Univer s 4 mg tablet 1-08 ity of 00:00: [place] 00 Medical Branch ondansetron 2021-03 Yes [facility] 4 mg tablet 1-08 ity of 00:00: Medical Branch ondansetron 2021-03 Yes [facility] 4 mg tablet 1-08 ity of 00:00: Medical Branch ondansetron 2021-03 Yes [facility] 4 mg tablet -08 ity of 00:00: Medical Branch ondansetron 2021-03 Yes [facility] 4 mg tablet -08 ity of 00:00: Medical Branch ondansetron 2021-03- No 4mg Take [address] [facility] (ZOFRAN) 4 04-01 11-15 tablet (4 [facility] tablet 00:00: 23:59 mg total) Me dical 00 :00 by mouth Center every 6 (six) hours as needed for Nausea for up to 7 days. ondansetron 2021-03- No 4mg Take [address] [facility] (ZOFRAN) 4 04-01 11-15 tablet (4 [facility] tablet 00:00: 23:59 mg total) Me dical 00 :00 by mouth Center every 6 (six) hours as needed for Nausea for up to 7 days. ondansetron 2021-03- No 4mg Take [address] [facility] (ZOFRAN) 4 04-01 11-15 tablet (4 [facility] MG tablet 00:00: 23:59 mg total) Me dical 00 :00 by mouth Center every 6 (six) hours as needed for Nausea for up to 7 days. ondansetron 2021-03- No 4mg Take [address] [facility] (ZOFRAN) 4 04-01 11-15 tablet (4 [facility] MG tablet 00:00: 23:59 mg total) Me dical 00 :00 by mouth Center every 6 (six) hours as needed for Nausea for up to 7 days. ondansetron 2021-03- No 4mg Take [address] [facility] (ZOFRAN) 4 04-01 11-15 tablet (4 [facility] MG tablet 00:00: 23:59 mg total) Me dical 00 :00 by mouth Center every 6 (six) hours as needed for Nausea for up to 7 days. ondansetron 2021-03- No 4mg Take [address] [facility] (ZOFRAN) 4 04-01 11-15 tablet (4 [facility] MG tablet 00:00: 23:59 mg total) Me dical 00 :00 by mouth Center every 6 (six) hours as needed for Nausea for up to 7 days. ondansetron 2021-03- No 4mg Take [address] [facility] (ZOFRAN) 4 04-01 11-15 tablet (4 [facility] MG tablet 00:00: [...] Take [address] [facility] (ZOFRAN) 4 04-01 11-15 tablet (4 [facility] MG tablet 00:00: [...] 4mg Take [address] [facility] (ZOFRAN) 4 04-0108 tablet (4 [facility] MG tablet 00:00: 00:00 mg total) Me dical 00 :00 by mouth Center every 6 (six) hours as needed for Nausea. ondansetron 2021-03- No 4mg Take [address] [facility] (ZOFRAN) 4 04-0108 tablet (4 [facility] MG tablet 00:00: [...] hours as needed for Nausea. ondansetron 2021-03 No 4mg Take [address] [facility] (ZOFRAN) 4 04-01 tablet (4 [facility] MG tablet 00:00: 00:00 mg total) Me dical 00 :00 by mouth Center every 6 (six) hours as needed for Nausea for up to 7 days. ondansetron 2021-03 No 4mg Take [address] [facility] (ZOFRAN) 4 04-01 tablet (4 [facility] MG tablet 00:00: 00:00 mg total) Me dical 00 :00 by mouth Center every 6 (six) hours as needed for Nausea. ondansetron 2021-03 No 4mg Take [address] [facility] (ZOFRAN) [...] Take [address] [facility] (BUMEX[facility] 03-31 [facility] tablet 13:41: daily. Medica l 13 Center fluticasone 2021-03 Yes 2{puff} Q.5D Inhale [address] [facility] propion-jena -07 puffs by [facility] meteroL 13:41: mouth [...] as needed for Wheezing. Fluocinolon 2021-03 Yes [facility] e Acetonide 0-27 the/FS Colleg e Body 0.01 % 14:26: Body Oil of OIL 10 0.01 % Medicin e Multiple 2021-03 Yes 1{tbl} Take 1 [facility] 0-27 Tablet by [facility] denisa nerals 14:26: mouth of (MULTI-DEVIN 10 daily. Medici n MIN Adina e GUMMIES) Vitamins CHEW Fluticasone 2021-03- Advair HFA [facility] -Salmeterol 0-27 10-27 230 mcg-21 C [facility]lege 230-21 14:25: 00:00 mcg/actuat of MCG/ACT 56 :00 ion Medicin AERO aerosol e inhaler docusate 2021-03 Yes 100mg Take 1 [place] sodium 0-27 capsule by [facility] (COLACE) 00:00: mouth two of 100 MG 00 times Medicin capsule daily. e cyclobenzap 2021-03 Yes 10mg Take 1 [facility] 0-27 Tablet by [facility] (FLEXERIL) 00:00: mouth 3 of 10 MG 00 times Medicin tablet daily as e needed for Muscle spasms. ondansetron 2021-03 Yes 4mg Take 1 [facility] (ZOFRAN-ODT 0-27 Tablet by [facility] legyashira ) 4 mg 00:00: mouth of disintegrat 00 every 8 Medic in ing tablet hours as e needed for Nausea. tramadol 2021-03 Yes 1{tbl} Take 1 [facility] (ULTRAM) 50 0-27 Tablet by [facility] MG tablet 00:00: mouth of 00 every 8 Medicin hours as e needed for Pain. famotidine 2021-03 Yes 20mg Take 0.5 [facility] (PEPCID) 40 0-27 Tablets by [facility] l[facility] MG tablet 00:00: mouth of 00 daily. Medicin e ondansetron 2021-03 Yes 4mg Take 1 [facility] (ZOFRAN-ODT 0-27 Tablet by [facility] ) 4 mg 00:00: mouth of disintegrat 00 every 8 Medic in ing tablet hours as e needed for Nausea. famotidine 2021-03 Yes 20mg Take 0.5 [facility] (PEPCID) 40 0-27 Tablets by [facility] l[facility] MG tablet 00:00: mouth of 00 daily. Medicin e ondansetron 2021-03 Yes 4mg Take 1 [facility] (ZOFRAN-ODT 0-27 Tablet by [facility] ) 4 mg 00:00: mouth of disintegrat 00 every 8 Medic in ing tablet hours as e needed for Nausea. famotidine 2021-03 Yes 20mg Take 0.5 [facility] (PEPCID) 40 0-27 Tablets by [facility] llege MG tablet 00:00: mouth of 00 daily. Medicin e docusate 2021-03- No 100mg Take 1 [facility] sodium 0-27 11-22 capsule by [facility] (COLACE) 00:00: 00:00 mouth two of 100 MG 00 :00 times Medicin capsule daily. e cyclobenzap 2021-03- No 10mg Take 1 [facility] rine 0-27 11-22 Tablet by [facility] (FLEXERIL) 00:00: 00:00 mouth 3 of 10 [...] aerosol Branc h on inhaler inhaler bumetanide 2021-0 Yes 1mg Take 1 mg [facility]ally 1 mg tablet 9-28 by mouth ity of 00:00: every [place] 00 morning. Medical Branch bumetanide 2021-0 Yes 1mg Take 1 mg Un [facility]ally 1 mg tablet 9-28 by mouth ity of 00:00: every [place] 00 morning. Medical Branch bumetanide 2021-0 Yes 1mg Take 1 mg [facility]ally 1 mg tablet 9-28 by mouth ity of 00:00: every [place] 00 morning. Medical Branch bumetanide 2021-0 Yes 1mg Take 1 mg Un sally 1 mg tablet 9-28 by mouth ity of 00:00: every [place] 00 morning. Medical Branch bumetanide 2021-0 Yes 1mg Take 1 mg Un sally 1 mg tablet 9-28 by mouth ity of 00:00: every [place] 00 morning. Medical Branch bumetanide 2021-0 Yes 1mg Take 1 mg Un sally 1 mg tablet 9-28 by mouth ity of 00:00: every [place] 00 morning. Medical Branch bumetanide 2021-0 Yes 1mg Take 1 mg Un sally 1 mg tablet 9-28 by mouth ity of 00:00: every [place] 00 morning. Medical Branch bumetanide 2021-0 Yes 1mg Take 1 mg Un sally 1 mg tablet 9-28 by mouth ity of 00:00: every [place] 00 morning. Medical Branch bumetanide 2021-0 Yes 1mg Take 1 mg Un sally 1 mg tablet 9-28 by mouth ity of 00:00: every [place] 00 morning. Medical Branch linaCLOtide 2021-0 Yes [id number] Take 1 [facility] (LINZESS) 9-22 capsule by [facility] 145 MCG 00:00: mouth at of CAPS 00 bedtime. Medicin e linaCLOtide 2021-0 Yes [id number] Take 1 [facility] (LINZESS) 9-22 capsule by [facility] 145 MCG 00:00: mouth at of CAPS 00 bedtime. Medicin e linaCLOtide 2021-0 Yes [id number] Take 1 [place] (LINZESS) 9-22 capsule by [facility] 145 MCG 00:00: mouth at of CAPS 00 bedtime. Medicin e linaCLOtide Yes [id number] Take 1 [place] (LINZESS) 9-22 capsule by [facility] 145 MCG 00:00: mouth at of CAPS 00 bedtime. Medicin e linaCLOtide Yes 1{capsu Take 1 U nivers (LINZESS) 9-22 le} capsule by ity of 145 mcg 00:00: mouth. [place] capsule [facility] Branch linaCLOtide Yes 1{capsu Take 1 U nivers (LINZESS) 9-22 le} capsule by ity of 145 mcg 00:00: mouth. [place] capsule [facility] Branch linaCLOtide Yes 1{capsu Take 1 U nivers (LINZESS) 9-22 le} capsule by ity of 145 mcg 00:00: mouth. [place] capsule [facility] Branch linaCLOtide Yes 1{capsu Take 1 U nivers (LINZESS) 9-22 le} capsule by ity of 145 mcg 00:00: mouth. [place] capsule [facility] linaCLOtide Yes 1{capsu Take 1 U nivers (LINZESS) 9-22 le} capsule by ity of 145 mcg 00:00: mouth. [place] capsule [facility] Branch linaCLOtide Yes 1{capsu Take 1 U nivers (LINZESS) 9-22 le} capsule by ity of 145 mcg 00:00: mouth. [place] capsule [facility] Branch Fluticasone Yes Advair HFA [facility] -Salmeterol 15 230 mcg-21 Co llege 230-21 08:53: mcg/actuat of MCG/ACT 45 ion Medicin AERO aerosol e inhaler Fluocinolon Yes [facility] [place] e Acetonide 15 the/FS Colleg e Body 0.01 % 08:53: Body Oil of OIL 45 0.01 % Medicin e Multiple Yes 1{tbl} Take 1 [facility] 9-15 Tablet by Col [facility]ge nerals 08:53: mouth of (MULTI-DEVIN 45 daily. Medici n MIN Adina e GUMMIES) Vitamins CHEW ADVAIR HFA Yes [id number] INHALE 2 [facility] 230-21 9-13 PUFFS BY College MCG/ACT 00:00: MOUTH of AERO 00 TWICE A Medicin DAY e ADVAIR HFA 0 Yes [id number] INHALE 2 [facility] 230-21 9-13 PUFFS BY Summer Set MCG/ACT 00:00: MOUTH of AERO 00 TWICE A Medicin DAY e ADVAIR HFA 2021-0 Yes [id number] INHALE 2 [facility] 230-21 9-13 PUFFS BY Summer [facility] MCG/ACT 00:00: MOUTH of AERO 00 TWICE A Medicin DAY e ADVAIR HFA 2021-0 Yes [id number] INHALE 2 [facility] 230-21 9-13 PUFFS BY Summer [facility] MCG/ACT 00:00: MOUTH of AERO 00 TWICE A Medicin DAY e Albuterol Yes INHALE 2 [facility] Sulfate 9-06 PUFFS BY [facility] (PROAIR 00:00: MOUTH of HFA) 108 00 EVERY 4 Medicin (90 Base) HOURS e MCG/ACT NEEDED FOR AERS WHEEZING Albuterol Yes INHALE 2 [facility] Sulfate 9-06 PUFFS BY [facility] (PROAIR 00:00: MOUTH of HFA) 108 00 EVERY 4 Medicin (90 Base) HOURS e MCG/ACT NEEDED FOR AERS WHEEZING Albuterol Yes INHALE 2 [facility] Sulfate 9-06 PUFFS BY [facility] (PROAIR 00:00: MOUTH of HFA) 108 00 EVERY 4 Medicin (90 Base) HOURS e MCG/ACT NEEDED FOR AERS WHEEZING Albuterol 0 Yes INHALE 2 [facility] Sulfate 9-06 PUFFS BY Summer [facility] (PROAIR 00:00: MOUTH of HFA) 108 00 EVERY 4 Medicin (90 Base) HOURS e MCG/ACT NEEDED FOR AERS WHEEZING albuterol 0 Yes INHALE 2 Univ ers 90 9-06 PUFFS BY ity of mcg/actuati 00:00: MOUTH [place] on inhaler 00 EVERY 4 Medica l HOURS Branch NEEDED FOR WHEEZING albuterol 2021-0 Yes INHALE 2 Univ ers 90 9-06 PUFFS BY ity of mcg/actuati 00:00: MOUTH [place] on inhaler 00 EVERY 4 Medica l HOURS Branch NEEDED FOR WHEEZING albuterol 2021-0 Yes INHALE 2 Univ ers 90 9-06 PUFFS BY ity of mcg/actuati 00:00: MOUTH [place] on inhaler 00 EVERY 4 Medica l HOURS Branch NEEDED FOR WHEEZING albuterol 2021-0 Yes INHALE 2 Univ ers 90 9-06 PUFFS BY ity of mcg/actuati 00:00: MOUTH [place] on inhaler 00 EVERY 4 Medica l HOURS Branch NEEDED FOR WHEEZING albuterol 2021-0 Yes INHALE 2 Univ ers 90 9-06 PUFFS BY ity of mcg/actuati 00:00: MOUTH [place] on inhaler 00 EVERY 4 Medica l HOURS Branch NEEDED FOR WHEEZING albuterol 2021-0 Yes INHALE 2 Univ ers 90 9-06 PUFFS BY ity of mcg/actuati 00:00: MOUTH [place] on inhaler 00 EVERY 4 Medica l HOURS Branch NEEDED FOR WHEEZING albuterol 2021-0 Yes INHALE 2 Univ ers 90 9-06 PUFFS BY ity of mcg/actuati 00:00: MOUTH [place] on inhaler 00 EVERY 4 Medica l HOURS Branch NEEDED FOR WHEEZING albuterol 2021-0 Yes INHALE 2 Univ ers 90 9-06 PUFFS BY ity of mcg/actuati 00:00: MOUTH [place] on inhaler 00 EVERY 4 Medica l HOURS Branch NEEDED FOR WHEEZING albuterol 2021-0 Yes INHALE 2 Univ ers 90 9-06 PUFFS BY ity of mcg/actuati 00:00: MOUTH [place] on inhaler 00 EVERY 4 Medica l HOURS Branch NEEDED FOR WHEEZING fluticasone 2021-0 Yes [facility] (CUTIVATE) 8 Summer Set 0.005 % 00:00: of ointment 00 Medicin e triamcinolo Yes [facility] 8 Summer Set (KENALOG) 00:00: of 0.1 % 00 Medicin ointment e fluticasone 0 Yes [facility] (CUTIVATE) 831 Summer Set 0.005 % 00:00: of ointment 00 Medicin e triamcinolo Yes [facility] 8 Summer Set (KENALOG) 00:00: of 0.1 % 00 Medicin ointment e fluticasone 0 Yes [facility] (CUTIVATE) 8 Summer Set 0.005 % 00:00: of ointment 00 Medicin e triamcinolo 2022-[address] (KENALOG) 00:00: of 0.1 % 00 Medicin ointment e fluticasone 0 Yes [facility] (CUTIVATE) [address] [place] [address] 0.005 % 00:00: of ointment 00 Medicin e triamcinolo Yes [address] (KENALOG) 00:00: of 0.1 % 00 Medicin ointment e triamcinolo 0 Yes [id number] Apply to [facility] ne 8-31 area(s) 2 ity of acetonide 00:00: (two) [place] 0.1 % 00 times Medical ointment daily. To Branch thick areas only. fluocinolon 2021-0 Yes [id number] Apply to [facility] e 8-31 area(s) 2 ity of (DERMA-SMOO 00:00: (two) [place] THE/FS BODY 00 times Medical OIL) 0.01 % daily as Bran ch body oil needed for Rash. fluticasone 2021-0 Yes [id number] Apply to Univers propionate 8-31 area(s) 2 ity of 0.005 % 00:00: (two) [place] ointment 00 times Medical daily. Branch triamcinolo 2021-0 Yes [id number] Apply to [facility] ne 8-31 area(s) 2 ity of acetonide 00:00: (two) [place] 0.1 % 00 times Medical ointment daily. To Branch thick areas only. fluocinolon 2021-0 Yes [id number] Apply to [facility] e 8-31 area(s) 2 ity of (DERMA-SMOO 00:00: (two) [place] THE/FS BODY 00 times Medical OIL) 0.01 % daily as Bran ch body oil needed for Rash. fluticasone 2-0 Yes [id number] Apply to Univers propionate 8-31 area(s) 2 ity of 0.005 % 00:00: (two) [place] ointment 00 times Medical daily. Branch triamcinolo 2021-0 Yes [id number] Apply to [facility] ne 8-31 area(s) 2 ity of acetonide 00:00: (two) [place] 0.1 % 00 times Medical ointment daily. To Branch thick areas only. fluocinolon 2021-0 Yes [id number] Apply to Univers e 8-31 area(s) 2 ity of (DERMA-SMOO 00:00: (two) [place] THE/FS BODY 00 times Medical OIL) 0.01 % daily as Bran ch body oil needed for Rash. fluticasone 2022-0 Yes [id number] Apply to Univers propionate 8-31 area(s) 2 ity of 0.005 % 00:00: (two) [place] ointment 00 times Medical daily. Branch triamcinolo 2022-0 Yes [id number] Apply to Univers ne 8-31 area(s) 2 ity of acetonide 00:00: (two) [place] 0.1 % 00 times Medical ointment daily. To Branch thick areas only. fluocinolon 2022-0 Yes [id number] Apply to Univers e 8-31 area(s) 2 ity of (DERMA-SMOO 00:00: (two) [place] THE/FS BODY 00 times Medical OIL) 0.01 % daily as Bran ch body oil needed for Rash. fluticasone 2022-0 Yes [id number] Apply to [facility] propionate 8-31 area(s) 2 ity of 0.005 % 00:00: (two) [place] ointment 00 times Medical daily. Branch triamcinolo 2022-0 Yes [id number] Apply to Univers ne 8-31 area(s) 2 ity of acetonide 00:00: (two) [place] 0.1 % 00 times Medical ointment daily. To Branch thick areas only. fluocinolon 2022-0 Yes [id number] Apply to Univers e 8-31 area(s) 2 ity of (DERMA-SMOO 00:00: (two) [place] THE/FS BODY 00 times Medical OIL) 0.01 % daily as Bran ch body oil needed for Rash. fluticasone 2022-0 Yes [id number] Apply to Univers propionate 8-31 area(s) 2 ity of 0.005 % 00:00: (two) [place] ointment 00 times Medical daily. Branch triamcinolo 2022-0 Yes [id number] Apply to Univers ne 8-31 area(s) 2 ity of acetonide 00:00: (two) [place] 0.1 % 00 times Medical ointment daily. To Branch thick areas only. fluocinolon 2022-0 Yes [id number] Apply to Univers e 8-31 area(s) 2 ity of (DERMA-SMOO 00:00: (two) [place] THE/FS BODY 00 times Medical OIL) 0.01 % daily as Bran ch body oil needed for Rash. fluticasone 2022-0 Yes [id number] Apply to Univers propionate 8-31 area(s) 2 ity of 0.005 % 00:00: (two) [place] ointment 00 times Medical daily. Branch triamcinolo 2022-0 Yes [id number] Apply to Univers ne 8-31 area(s) 2 ity of acetonide 00:00: (two) [place] 0.1 % 00 times Medical ointment daily. To Branch thick areas only. fluocinolon 2022-0 Yes [id number] Apply to Univers e 8-31 area(s) 2 ity of (DERMA-SMOO 00:00: (two) [place] THE/FS BODY 00 times Medical OIL) 0.01 % daily as Bran ch body oil needed for Rash. fluticasone 2022-0 Yes [id number] Apply to Univers propionate 8-31 area(s) 2 ity of 0.005 % 00:00: (two) [place] ointment 00 times Medical daily. Branch triamcinolo 2022-0 Yes [id number] Apply to Univers ne 8-31 area(s) 2 ity of acetonide 00:00: (two) [place] 0.1 % 00 times Medical ointment daily. To Branch thick areas only. fluocinolon 2022-0 Yes [id number] Apply to Univers e 8-31 area(s) 2 ity of (DERMA-SMOO 00:00: (two) [place] THE/FS BODY 00 times Medical OIL) 0.01 % daily as Bran ch body oil needed for Rash. fluticasone 2022-0 Yes [id number] Apply to [facility] propionate 8-31 area(s) 2 ity of 0.005 % 00:00: (two) [place] ointment 00 times Medical daily. Branch triamcinolo 2022-0 Yes [id number] Apply to Univers ne 8-31 area(s) 2 ity of acetonide 00:00: (two) [place] 0.1 % 00 times Medical ointment daily. To Branch thick areas only. fluocinolon 2022-0 Yes [id number] Apply to Univers e 8-31 area(s) 2 ity of (DERMA-SMOO 00:00: (two) [place] THE/FS BODY 00 times Medical OIL) 0.01 % daily as Bran ch body oil needed for Rash. fluticasone 2022-0 Yes [id number] Apply to [facility] propionate 8-31 area(s) 2 ity of 0.005 % 00:00: (two) [place] ointment 00 times Medical daily. Branch triamcinolo 202-0 Yes [id number] Apply to Univers ne 8-31 area(s) 2 ity of acetonide 00:00: (two) [place] 0.1 % 00 times Medical ointment daily. To Branch thick areas only. fluticasone 2021-0 Yes [id number] Apply to [facility] propionate 8-31 area(s) 2 ity of 0.005 % 00:00: (two) [place] ointment 00 times Medical daily. Branch triamcinolo 2021-0 Yes [id number] Apply to Univers ne 8-31 area(s) 2 ity of acetonide 00:00: (two) [place] 0.1 % 00 times Medical ointment daily. To Branch thick areas only. fluticasone 2021-0 Yes [id number] Apply to [facility] propionate 8-31 area(s) 2 ity of 0.005 % 00:00: (two) [place] ointment 00 times Medical daily. Branch fluocinolon 2021-0 2023- No [id number] Apply to Univers e 8- 04-11 area(s) 2 ity of (DERMA-SMOO 00:00: 00:00 (two[place] THE/FS BODY 00 :00 times Medical OIL) 0.01 % daily as Bran ch body oil needed for Rash. fluocinolon 2021-0 2023- No [id number] Apply to Univers e 8-31 04-11 area(s) 2 ity of (DERMA-SMOO 00:00: 00:00 (two[place] THE/FS BODY 00 :00 times Medical OIL) 0.01 % daily as Bran ch body oil needed for Rash. norethindro Yes 1{tbl} Take 1 [facility]-28 Tablet by [facility] (MICRONOR) 00:00: mouth of 0.35 MG 00 daily. Medicin tablet e norethindro 2022-0 Yes 1{tbl} Take 1 [facility] 6-28 Tablet by Summer [facility] (MICRONOR) 00:00: mouth of 0.35 MG 00 daily. Medicin tablet e norethindro 2-0 Yes 1{tbl} Take 1 [facility] 6-28 Tablet by Summer Set (MICRONOR) 00:00: mouth of 0.35 MG 00 daily. Medicin tablet e norethindro 2-0 Yes 1{tbl} Take 1 [facility] 6-28 Tablet by Summer Set (MICRONOR) 00:00: mouth of 0.35 MG 00 daily. Medicin tablet e conjugated 2021-0 Yes [id number] 1g Insert 1 g [facility] estrogens 4-20 into ity of 0.625 00:00: vagina at [place] mg/gram 00 bedtime. Medical vaginal Branch cream conjugated 2021-0 Yes [id number] 1g Insert 1 g [facility] estrogens 4-20 into ity of 0.625 00:00: vagina at [place] mg/gram 00 bedtime. Medical vaginal Branch cream conjugated 2021-0 Yes [id number] 1g Insert 1 g [facility] estrogens 4-20 into ity of 0.625 00:00: vagina at [place] mg/gram 00 bedtime. Medical vaginal Branch cream conjugated 2021-0 Yes [id number] 1g Insert 1 g [facility] estrogens 4-20 into ity of 0.625 00:00: vagina at [place] mg/gram 00 bedtime. Medical vaginal Branch cream conjugated 2021-0 Yes [id number] 1g Insert 1 g [facility] estrogens 4-20 into ity of 0.625 00:00: vagina at [place] mg/gram 00 bedtime. Medical vaginal Branch cream conjugated 2021-0 Yes [id number] 1g Insert 1 g [facility] estrogens 4-20 into ity of 0.625 00:00: vagina at [place] mg/gram 00 bedtime. Medical vaginal Branch cream conjugated 2-0 Yes [id number] 1g Insert 1 g [facility] estrogens 4-20 into ity of 0.625 00:00: vagina at [place] mg/gram 00 bedtime. Medical vaginal Branch cream conjugated 2-0 Yes [id number] 1g Insert 1 g [facility] estrogens 4-20 into ity of 0.625 00:00: vagina at [place] mg/gram 00 bedtime. Medical vaginal Branch cream conjugated 2-0 Yes [id number] 1g Insert 1 g [facility] estrogens 4-20 into ity of 0.625 00:00: vagina at [place] mg/gram 00 bedtime. Medical vaginal Branch cream conjugated 2021- Yes [id number] 1g Insert 1 g [facility] estrogens 4-20 into ity of 0.625 00:00: vagina at [place] mg/gram 00 bedtime. Medical vaginal Branch cream conjugated 2021- Yes [id number] 1g Insert 1 g [facility] estrogens 4-20 into ity of 0.625 00:00: vagina at [place] mg/gram 00 bedtime. Medical vaginal Branch cream fluocinolon 2021- No [id number] Apply to Univers e 07-12 area(s) 2 ity of (DERMA-SMOO 00:00: 00:00 (two[place] THE/FS BODY 00 :00 times Medical OIL) 0.01 % daily as Bran ch body oil needed for Rash. fluticasone 2021- No [id number] Apply to [facility] propionate 07-12 area(s) 2 ity of 0.005 % 00:00: 00:00 (two) [place] ointment 00 :00 times Medical daily. Branch fluocinolon 2021- No [id number] Apply to Univers e 07-12 area(s) 2 ity of (DERMA-SMOO 00:00: 00:00 (two[place] THE/FS BODY 00 :00 times Medical OIL) 0.01 % daily as Bran ch body oil needed for Rash. fluticasone 2021- No [id number] Apply to [facility] propionate 07-12 area(s) 2 ity of 0.005 % 00:00: 00:00 (two) [place] ointment 00 :00 times Medical daily. Branch Fluticasone Yes Advair HFA [facility] -Salmeterol 3-16 230 mcg-21 Co llege 230-21 10:46: mcg/actuat of MCG/ACT 12 ion Medicin AERO aerosol e inhaler Fluocinolon Yes [facility] [place] e Acetonide 3-16 the/FS Colleg e Body 0.01 % 10:46: Body Oil of OIL 12 0.01 % Medicin e predniSONE Yes prednisone [facility] (DELTASONE) 3-16 20 mg Summer Set 20 MG 10:46: tablet of tablet 12 Medicin e Fluocinolon Yes [facility] e Acetonide 2-16 the/FS Colleg e Body 0.01 % 13:50: Body Oil of OIL 32 0.01 % Medicin e predniSONE Yes prednisone [facility] (DELTASONE) 2-16 20 mg Summer Set 20 MG 13:50: tablet of tablet 32 [...] 2 [facility] Sulfate 2-04 PUFFS BY [facility] (PROAIR 00:00: MOUTH of HFA) 108 00 EVERY 4 Medicin (90 Base) HOURS e MCG/ACT NEEDED FOR AERS WHEEZING Albuterol Yes INHALE 2 [facility] Sulfate 2-04 PUFFS BY Summer [facility] (PROAIR 00:00: MOUTH of HFA) 108 00 EVERY 4 Medicin (90 Base) HOURS e MCG/ACT NEEDED FOR AERS WHEEZING Amoxicillin Amoxicillin 2021- No 1{table BID Amoxicilli 875 MG 875 MG 04-10 t} n 875 MG 00:00: 00:00 00 :00 Fluticasone 2020-03 Yes Advair HFA [place] -Salmeterol 2-23 230 mcg-21 Co llege 230-21 15:01: mcg/actuat of MCG/ACT 23 ion Medicin AERO aerosol e inhaler Fluticasone 2020-03 Yes Advair HFA [facility] -Salmeterol 2-23 230 mcg-21 Co llege 230-21 15:01: mcg/actuat of MCG/ACT 23 ion Medicin AERO aerosol e inhaler bumetanide 2020-03 Yes [facility] (BUMEX) 1 2-09 College MG tablet [...] Medicin e albuterol Yes 180ug Inhale 2 [facility] (PROAIR 8-18 Puffs by [facility]) 108 00:00: mouth of (90 base) 00 every 4 Medicin mcg/act hours as e inhaler needed for Wheezing. Fluticasone 0 Yes [id number] INHALE 2 [place] -Salmeterol 8-18 PUFFS BY [facility] (ADVAIR 00:00: MOUTH of HFA) TWICE A Medic in MCG/ACT DAY e AERO albuterol Yes 180ug Inhale 2 [facility] (PROAIR 8-18 Puffs by Summer [facility] HFA) 108 00:00: mouth of (90 base) 00 every 4 Medicin mcg/act hours as e inhaler needed for Wheezing. Fluticasone 0 Yes [id number] INHALE 2 [facility] -Salmeterol 8-18 PUFFS BY [facility] (ADVAIR 00:00: MOUTH of HFA) 230-21 00 TWICE A Medic in MCG/ACT DAY e AERO albuterol 0 Yes 180ug Inhale 2 [facility] 00:00: mouth of (90 base) 00 every 4 Medicin mcg/act hours as e inhaler needed for Wheezing. Fluticasone 2020-0 Yes [id number] INHALE 2 [facility] -Salmeterol 8-18 PUFFS BY [facility] (ADVAIR 00:00: MOUTH of HFA) 230-21 00 TWICE A Medic in MCG/ACT DAY e AERO albuterol 2020-0 Yes 180ug Inhale 2 [employer] [facility] (PROAIR 8-18 Puffs by Summer Set HF) 108 00:00: mouth of (90 base) 00 every 4 Medicin mcg/act hours as e inhaler needed for Wheezing. Fluticasone 2020-0 Yes [id number] INHALE 2 [place] -Salmeterol 8-18 PUFFS BY [facility] (ADVAIR 00:00: MOUTH of HFA) 230- 00 TWICE A Medic in MCG/ACT DAY e AERO furosemide 2020-0 Yes 20mg Take 20 mg [facility] (LASIX) 20 8-11 by mouth Colle ge MG tablet 00:00: daily. of Medicin e furosemide 2020-0 Yes 20mg Take 20 mg [facility] (LASIX) 20 8-11 by mouth Colle ge MG tablet 00:00: daily. of 00 Medicin e furosemide 2020-0 Yes 20mg Take 20 mg [facility] (LASIX) 20 8-11 by mouth Colle ge MG tablet 00:00: daily. of 00 Medicin e furosemide 2020-0 Yes 20mg Take 20 mg [facility] (LASIX) 20 8-11 by mouth Colle ge MG tablet 00:00: daily. of 00 Medicin e crisaborole 2020-0 Yes [id number] Apply to [facility] (EUCRISA) 2 5-11 area(s) 2 ity of % Oint 00:00: (two) [place] 00 times Medical daily as Branch needed (eczema). crisaborole 202-0 Yes [id number] Apply to [facility] (EUCRISA) 2 5-11 area(s) 2 ity of % Oint 00:00: (two) [place] 00 times Medical daily as Branch needed (eczema). crisaborole 2021-0 Yes [id number] Apply to Univers (EUCRISA) 2 5-11 area(s) 2 ity of % Oint 00:00: (two) [place] 00 times Medical daily as Branch needed (eczema). crisaborole 2021-0 Yes [id number] Apply to Univers (EUCRISA) 2 5-11 area(s) 2 ity of % Oint 00:00: (two) [place] 00 times Medical daily as Branch needed (eczema). crisaborole 2020-0 Yes [id number] Apply to Univers (EUCRISA) 2 5-11 area(s) 2 ity of % Oint 00:00: (two) [place] 00 times Medical daily as Branch needed (eczema). crisaborole 2020-0 Yes [id number] Apply to Univers (EUCRISA) 2 5-11 area(s) 2 ity of % Oint 00:00: (two) [place] 00 times Medical daily as Branch needed (eczema). crisaborole 2020-0 Yes [id number] Apply to Univers (EUCRISA) 2 5-11 area(s) 2 ity of % Oint 00:00: (two) [place] 00 times Medical daily as Branch needed (eczema). crisaborole 2020-0 Yes [id number] Apply to Univers (EUCRISA) 2 5-11 area(s) 2 ity of % Oint 00:00: (two) [place] 00 times Medical daily as Branch needed (eczema). crisaborole 2020-0 Yes [id number] Apply to Univers (EUCRISA) 2 5-11 area(s) 2 ity of % Oint 00:00: (two) [place] 00 times Medical daily as Branch needed (eczema). crisaborole 2020-0 Yes [id number] Apply to Univers (EUCRISA) 2 5-11 area(s) 2 ity of % Oint 00:00: (two) [place] 00 times Medical daily as Branch needed (eczema). crisaborole 2020-0 Yes [id number] Apply to Univers (EUCRISA) 2 5-11 area(s) 2 ity of % Oint 00:00: (two) [place] 00 times Medical daily as Branch needed (eczema). ketoconazol 2020-0 Yes Apply to Un sally e 2 % 4-26 area(s) 2 ity of shampoo 00:00: (two) [place] 00 times per Medical week for Branch Itching. dupilumab 2021-0 Yes [id number] 300mg inject 1 Univers (DUPIXENT 4-26 Syringe ity of [place]) 00:[place] mg/2 mL 00 skin every Me dical Syrg 2 (two) Branch syringe weeks. ketoconazol 1-0 Yes Apply to Un sally e 2 % 4-26 area(s) 2 ity of shampoo 00:00: (two) [place] 00 times per Medical week for Branch Itching. dupilumab 1-0 Yes [id number] 300mg inject 1 [facility] (DUPIXENT 4-26 Syringe ity of [place]) 00:00[place] mg/2 mL 00 skin every Me dical Syrg 2 (two) Branch syringe weeks. ketoconazol 1-0 Yes Apply to Un sally e 2 % 4-26 area(s) 2 ity of shampoo 00:00: (two) [place] 00 times per Medical week for Branch Itching. dupilumab 1-0 Yes [id number] 300mg inject 1 [facility] (DUPIXENT 4-26 Syringe ity of [place]) 00:00: [place] mg/2 mL 00 skin every Me dical Syrg 2 (two) Branch syringe weeks. ketoconazol 1-0 Yes Apply to Un sally e 2 % 4-26 area(s) 2 ity of shampoo 00:00: (two) [place] 00 times per Medical week for Branch Itching. dupilumab 1-0 Yes [id number] 300mg inject 1 [facility] (DUPIXENT 4-26 Syringe ity of [place]) 00:00: [place] mg/2 mL 00 skin every Me dical Syrg 2 (two) Branch syringe weeks. ketoconazol 2021-0 Yes Apply to Un sally e 2 % 4-26 area(s) 2 ity of shampoo 00:00: (two) [place] 00 times per Medical week for Branch Itching. dupilumab 2021-0 Yes [id number] 300mg inject 1 [facility] (DUPIXENT 4-26 Syringe ity of [place]) 00:00: [place] mg/2 mL 00 skin every Me dical Syrg 2 (two) Branch syringe weeks. ketoconazol 2021-0 Yes Apply to Un sally e 2 % 4-26 area(s) 2 ity of shampoo 00:00: (two) [place] 00 times per Medical week for Branch Itching. dupilumab 2021-0 Yes [id number] 300mg inject 1 [facility] (DUPIXENT 4-26 Syringe ity of [place]) 00:00: [place] mg/2 mL 00 skin every Me dical Syrg 2 (two) Branch syringe weeks. ketoconazol 2021-0 Yes Apply to Un sally e 2 % 4-26 area(s) 2 ity of shampoo 00:00: (two) [place] 00 times per Medical week for Branch Itching. dupilumab 2021-0 Yes [id number] 300mg inject 1 [facility] (DUPIXENT 4-26 Syringe ity of [place]) 00:00: [place] mg/2 mL 00 skin every Me dical Syrg 2 (two) Branch syringe weeks. ketoconazol 2021-0 Yes Apply to Un sally e 2 % 4-26 area(s) 2 ity of shampoo 00:00: (two) [place] 00 times per Medical week for Branch Itching. dupilumab 2021-0 Yes [id number] 300mg inject 1 [facility] (DUPIXENT 4-26 Syringe ity of [place]) 00:00: [place] mg/2 mL 00 skin every Me dical Syrg 2 (two) Branch syringe weeks. ketoconazol 2021-0 Yes Apply to Un sally e 2 % 4-26 area(s) 2 ity of shampoo 00:00: (two) [place] 00 times per Medical week for Branch Itching. dupilumab 2021-0 Yes [id number] 300mg inject 1 Univers (DUPIXENT 4-26 Syringe ity of [place]) 00:00: [place] mg/2 mL 00 skin every Me dical Syrg 2 (two) Branch syringe weeks. ketoconazol 2021-0 Yes Apply to Un sally e 2 % 4-26 area(s) 2 ity of shampoo 00:00: (two) [place] 00 times per Medical week for Branch Itching. dupilumab 2021-0 Yes [id number] 300mg inject 1 [facility] (DUPIXENT 4-26 Syringe ity of [place]) 00:00: [place] mg/2 mL 00 skin every Me dical Syrg 2 (two) Branch syringe weeks. ketoconazol Yes Apply to Un sally e 2 % 4-26 area(s) 2 ity of shampoo 00:00: (two) [place] 00 times per Medical week for Branch Itching. dupilumab Yes [id number] 300mg inject 1 [facility] (DUPIXENT 4-26 Syringe ity of [place]) 00:00: [place] mg/2 mL 00 skin every Me dical Syrg 2 (two) Branch syringe weeks. Fluticasone Yes [id number] INHALE 2 [facility] -Salmeterol 2-25 PUFFS BY Isabell quiñonez (ADVAIR 00:00: MOUTH of HFA) 230-21 00 TWICE A Medic in MCG/ACT DAY e AERO salicylic Yes [id number] Apply to Univers acid 6 % 2-25 plantar ity of gel 00:00: feet under [place] 00 occlusion Medical 2-3 times Branch per week salicylic 0 Yes [id number] Apply to Univers acid 6 % 2-25 plantar ity of gel 00:00: feet under [place] 00 occlusion Medical 2-3 times Branch per week salicylic 0 Yes [id number] Apply to Univers acid 6 % 2-25 plantar ity of gel 00:00: feet under [place] 00 occlusion Medical 2-3 times Branch per week salicylic 0 Yes [id number] Apply to Univers acid 6 % 2-25 plantar ity of gel 00:00: feet under [place] 00 occlusion Medical 2-3 times Branch per week salicylic 0 Yes [id number] Apply to Univers acid 6 % 2-25 plantar ity of gel 00:00: feet under [place] 00 occlusion Medical 2-3 times Branch per week salicylic 0 Yes [id number] Apply to Univers acid 6 % 2-25 plantar ity of gel 00:00: feet under [place] 00 occlusion Medical 2-3 times Branch per week salicylic 0 Yes [id number] Apply to Univers acid 6 % 2-25 plantar ity of gel 00:00: feet under [place] 00 occlusion Medical 2-3 times Branch per week salicylic 0 Yes [id number] Apply to Univers acid 6 % 2-25 plantar ity of gel 00:00: feet under [place] 00 occlusion Medical 2-3 times Branch per week salicylic Yes [id number] Apply to Univers acid 6 % 2-25 plantar ity of gel 00:00: feet under [place] 00 occlusion Medical 2-3 times Branch per week salicylic 0 Yes [id number] Apply to Univers acid 6 % 2-25 plantar ity of gel 00:00: feet under [place] 00 occlusion Medical 2-3 times Branch per week salicylic 0 Yes [id number] Apply to Univers acid 6 % 2-25 plantar ity of gel 00:00: feet under [place] 00 occlusion Medical 2-3 times Branch per week Fluticasone 2019-03- No [id number] INHALE 2 [facility] -Salmeterol 2-17 02-25 PUFFS BY [facility] (ADVAIR 00:00: 00:00 MOUTH of HFA) 230- 00 :00 TWICE A Medic in MCG/ACT DAY MUST e AERO COMPLETE PULMONOLOG Y APPT FOR FUTURE REFILLS PROVENTIL 2019-03 Yes [id number] INHALE 2 [place] HFA 108 (90 0-12 PUFFS BY [employer]) 00:00: MOUTH 4 of MCG/ACT 00 TIMES A Medicin inhaler DAY e PROVENTIL 2019-03 Yes [id number] INHALE 2 [place] HFA 108 (90 0-12 PUFFS BY [employer]) 00:00: MOUTH 4 of MCG/ACT 00 TIMES A Medicin inhaler DAY e PROVENTIL 2019-03 Yes [id number] INHALE 2 [facility] HFA 108 (90 0-12 PUFFS BY [employer]) 00:00: MOUTH 4 of MCG/ACT 00 TIMES A Medicin inhaler DAY e PROVENTIL 2019-03 Yes [id number] INHALE 2 [facility] HFA 108 (90 0-12 PUFFS BY [employer]) 00:00: MOUTH 4 of MCG/ACT 00 TIMES A Medicin inhaler DAY e PROVENTIL 2019-03 Yes [id number] INHALE 2 [facility] HFA 108 (90 0-12 PUFFS BY [employer]) 00:00: MOUTH 4 of MCG/ACT 00 TIMES A Medicin inhaler DAY e lactulose 2020- No 20g Take 1 [facility] (CEPHULAC) 5--25 Packet by Col [facility]ge 20 g packet 00:00: 00:00 mouth 3 of 00 :00 times Medicin daily. e Singulair Singulair Yes Nithya 1 tablet Common 1-14 [facility] 00:00: - [facility] 00 [facility] Singulair Singulair No 1{table QD Singulair 10 MG 10 MG 1-14 t} 10 MG 00:00: 00 Singulair Singulair No 1{table QD Singulair 10 MG 10 MG 1-14 t} 10 MG 00:00: 00 Singulair Singulair No 1{table QD Singulair 10 MG 10 MG 1-14 t} 10 MG 00:00: 00 Singulair Singulair No 1{table QD Singulair 10 MG 10 MG 1-14 t} 10 MG 00:00: 00 Singulair Singulair No 1{table QD Singulair 10 MG 10 MG 1-14 t} 10 MG 00:00: 00 Singulair Singulair No 1{table QD Singulair 10 MG 10 MG 1-14 t} 10 MG 00:00: 00 acetaminoph 2018- Yes [id number] 500mg Take 1 Univers en 500 mg 2-08 tablet by ity o f tablet 00:00: mouth [place] 00 every 6 Medical (six) Branch hours as needed for Pain. gabapentin Yes [id number] 300mg Take 1 [facility] 300 mg 2-08 capsule by ity of capsule 00:00: mouth 3 [place] 00 (three) Medical times Branch daily. ketorolac Yes [id number] 10mg Take 1 Un sally 10 mg 2-08 tablet by ity of tablet 00:00: mouth [place] 00 every 6 Medical (six) Branch hours as needed for Pain (scale 7-10) (Do not take more than 3 days in a row). ondansetron 2018- Yes [id number] 4mg Take 1 Univers 4 mg 2-08 tablet by ity of disintegrat 00:00: mouth [place] ing tablet 00 every 4 Medica l (four) Branch hours as needed for Nausea and Vomiting (N/V). tamsulosin 2018- Yes [id number] .4mg Take 1 U nivers 0.4 mg 24 2-08 capsule by ity of hr capsule 00:00: mouth at [place] as 00 bedtime. Medical Branch acetaminoph 2019-0 Yes [id number] 500mg Take 1 [facility] en 500 mg 2-08 tablet by ity o f tablet 00:00: mouth [place] 00 every 6 Medical (six) Branch hours as needed for Pain. gabapentin 2019-0 Yes [id number] 300mg Take 1 [facility] 300 mg 2-08 capsule by ity of capsule 00:00: mouth 3 [place] 00 (three) Medical times Branch daily. ketorolac 2019-0 Yes [id number] 10mg Take 1 Un sally 10 mg 2-08 tablet by ity of tablet 00:00: mouth [place] 00 every 6 Medical (six) Branch hours as needed for Pain (scale 7-10) (Do not take more than 3 days in a row). ondansetron 2019-0 Yes [id number] 4mg Take 1 Univers 4 mg 2-08 tablet by ity of disintegrat 00:00: mouth [place] ing tablet 00 every 4 Medica l (four) Branch hours as needed for Nausea and Vomiting (N/V). tamsulosin 2019-0 Yes [id number] .4mg Take 1 U nivers 0.4 mg 24 2-08 capsule by ity of hr capsule 00:00: mouth at [place] as 00 bedtime. Medical Branch acetaminoph 2019-0 Yes [id number] 500mg Take 1 [facility] en 500 mg 2-08 tablet by ity o f tablet 00:00: mouth [place] 00 every 6 Medical (six) Branch hours as needed for Pain. gabapentin 2019-0 Yes [id number] 300mg Take 1 [facility] 300 mg 2-08 capsule by ity of capsule 00:00: mouth 3 [place] 00 (three) Medical times Branch daily. ketorolac 2019-0 Yes [id number] 10mg Take 1 Un sally 10 mg 2-08 tablet by ity of tablet 00:00: mouth [place] 00 every 6 Medical (six) Branch hours as needed for Pain (scale 7-10) (Do not take more than 3 days in a row). ondansetron 2019-0 Yes [id number] 4mg Take 1 Univers 4 mg 2-08 tablet by ity of disintegrat 00:00: mouth [place] ing tablet 00 every 4 Medica l (four) Branch hours as needed for Nausea and Vomiting (N/V). tamsulosin 2019-0 Yes [id number] .4mg Take 1 U nivers 0.4 mg 24 2-08 capsule by ity of hr capsule 00:00: mouth at [place] as 00 bedtime. Medical Branch acetaminoph 2019-0 Yes [id number] 500mg Take 1 Univers en 500 mg 2-08 tablet by ity o f tablet 00:00: mouth [place] 00 every 6 Medical (six) Branch hours as needed for Pain. gabapentin 2019-0 Yes [id number] 300mg Take 1 [facility] 300 mg 2-08 capsule by ity of capsule 00:00: mouth 3 [place] 00 (three) Medical times Branch daily. ketorolac 2019-0 Yes [id number] 10mg Take 1 Un sally 10 mg 2-08 tablet by ity of tablet 00:00: mouth [place] 00 every 6 Medical (six) Branch hours as needed for Pain (scale 7-10) (Do not take more than 3 days in a row). ondansetron 2019-0 Yes [id number] 4mg Take 1 Univers 4 mg 2-08 tablet by ity of disintegrat 00:00: mouth [place] ing tablet 00 every 4 Medica l (four) Branch hours as needed for Nausea and Vomiting (N/V). tamsulosin 2019-0 Yes [id number] .4mg Take 1 U nivers 0.4 mg 24 2-08 capsule by ity of hr capsule 00:00: mouth at [place] as 00 bedtime. Medical Branch acetaminoph 2019-0 Yes [id number] 500mg Take 1 Univers en 500 mg 2-08 tablet by ity o f tablet 00:00: mouth [place] 00 every 6 Medical (six) Branch hours as needed for Pain. gabapentin 2019-0 Yes [id number] 300mg Take 1 [facility] 300 mg 2-08 capsule by ity of capsule 00:00: mouth 3 [place] 00 (three) Medical times Branch daily. ketorolac 2019-0 Yes [id number] 10mg Take 1 Un sally 10 mg 2-08 tablet by ity of tablet 00:00: mouth [place] 00 every 6 Medical (six) Branch hours as needed for Pain (scale 7-10) (Do not take more than 3 days in a row). ondansetron 2019-0 Yes [id number] 4mg Take 1 Univers 4 mg 2-08 tablet by ity of disintegrat 00:00: mouth [place] ing tablet 00 every 4 Medica l (four) Branch hours as needed for Nausea and Vomiting (N/V). tamsulosin 2019-0 Yes [id number] .4mg Take 1 U nivers 0.4 mg 24 2-08 capsule by ity of hr capsule 00:00: mouth at [place] as 00 bedtime. Medical Branch acetaminoph 2019-0 Yes [id number] 500mg Take 1 [facility] en 500 mg 2-08 tablet by ity o f tablet 00:00: mouth [place] 00 every 6 Medical (six) Branch hours as needed for Pain. gabapentin 2019-0 Yes [id number] 300mg Take 1 [facility] 300 mg 2-08 capsule by ity of capsule 00:00: mouth 3 [place] 00 (three) Medical times Branch daily. ketorolac 2019-0 Yes [id number] 10mg Take 1 Un sally 10 mg 2-08 tablet by ity of tablet 00:00: mouth [place] 00 every 6 Medical (six) Branch hours as needed for Pain (scale 7-10) (Do not take more than 3 days in a row). ondansetron 2019-0 Yes [id number] 4mg Take 1 Univers 4 mg 2-08 tablet by ity of disintegrat 00:00: mouth [place] ing tablet 00 every 4 Medica l (four) Branch hours as needed for Nausea and Vomiting (N/V). tamsulosin 2019-0 Yes [id number] .4mg Take 1 U nivers 0.4 mg 24 2-08 capsule by ity of hr capsule 00:00: mouth at [place] as 00 bedtime. Medical Branch acetaminoph 2019-0 Yes [id number] 500mg Take 1 Univers en 500 mg 2-08 tablet by ity o f tablet 00:00: mouth [place] 00 every 6 Medical (six) Branch hours as needed for Pain. gabapentin 2019-0 Yes [id number] 300mg Take 1 [facility] 300 mg 2-08 capsule by ity of capsule 00:00: mouth 3 [place] 00 (three) Medical times Branch daily. ketorolac 2019-0 Yes [id number] 10mg Take 1 Un sally 10 mg 2-08 tablet by ity of tablet 00:00: mouth [place] 00 every 6 Medical (six) Branch hours as needed for Pain (scale 7-10) (Do not take more than 3 days in a row). ondansetron 2019-0 Yes [id number] 4mg Take 1 Univers 4 mg 2-08 tablet by ity of disintegrat 00:00: mouth [place] ing tablet 00 every 4 Medica l (four) Branch hours as needed for Nausea and Vomiting (N/V). tamsulosin 2019-0 Yes [id number] .4mg Take 1 U nivers 0.4 mg 24 2-08 capsule by ity of hr capsule 00:00: mouth at [place] as 00 bedtime. Medical Branch acetaminoph 2019-0 Yes [id number] 500mg Take 1 [facility] en 500 mg 2-08 tablet by ity o f tablet 00:00: mouth [place] 00 every 6 Medical (six) Branch hours as needed for Pain. gabapentin 2019-0 Yes [id number] 300mg Take 1 [facility] 300 mg 2-08 capsule by ity of capsule 00:00: mouth 3 [place] 00 (three) Medical times Branch daily. ketorolac 2019-0 Yes [id number] 10mg Take 1 Un sally 10 mg 2-08 tablet by ity of tablet 00:00: mouth [place] 00 every 6 Medical (six) Branch hours as needed for Pain (scale 7-10) (Do not take more than 3 days in a row). ondansetron 2019-0 Yes [id number] 4mg Take 1 [facility] 4 mg 2-08 tablet by ity of disintegrat 00:00: mouth [place] ing tablet 00 every 4 Medica l (four) Branch hours as needed for Nausea and Vomiting (N/V). tamsulosin 2019-0 Yes [id number] .4mg Take 1 U nivers 0.4 mg 24 2-08 capsule by ity of hr capsule 00:00: mouth at [place] as 00 bedtime. Medical Branch gabapentin 2019-0 Yes [id number] 300mg Take 1 [facility] 300 mg 2-08 capsule by ity of capsule 00:00: mouth 3 [place] 00 (three) Medical times Branch daily. ketorolac 2019-0 Yes [id number] 10mg Take 1 Un sally 10 mg 2-08 tablet by ity of tablet 00:00: mouth [place] 00 every 6 Medical (six) Branch hours as needed for Pain (scale 7-10) (Do not take more than 3 days in a row). tamsulosin 2019-0 Yes [id number] .4mg Take 1 U nivers 0.4 mg 24 2-08 capsule by ity of hr capsule 00:00: mouth at [place] as 00 bedtime. Medical Branch gabapentin 2019-0 Yes [id number] 300mg Take 1 [facility] 300 mg 2-08 capsule by ity of capsule 00:00: mouth 3 [place] 00 (three) Medical times Branch daily. ketorolac 2019-0 Yes [id number] 10mg Take 1 Un sally 10 mg 2-08 tablet by ity of tablet 00:00: mouth [place] 00 every 6 Medical (six) Branch hours as needed for Pain (scale 7-10) (Do not take more than 3 days in a row). tamsulosin 2019- Yes [id number] .4mg Take 1 U nivers 0.4 mg 24 2-08 capsule by ity of hr capsule 00:00: mouth at [place] as 00 bedtime. Medical Branch gabapentin Yes [id number] 300mg Take 1 [facility] 300 mg 2-08 capsule by ity of capsule 00:00: mouth 3 00 (three) Medical times Branch daily. ketorolac 2019- Yes [id number] 10mg Take 1 Un sally 10 mg 2-08 tablet by ity of tablet 00:00: mouth [place] 00 every 6 Medical (six) Branch hours as needed for Pain (scale 7-10) (Do not take more than 3 days in a row). tamsulosin 2018- Yes [id number] .4mg Take 1 U nivers 0.4 mg 24 2-08 capsule by ity of hr capsule 00:00: mouth at [place] as 00 bedtime. Medical Branch acetaminoph 2022- No [id number] 500mg Take 1 [facility] en 500 mg 2-08 02-21 tablet by ity of tablet 00:00: 00:00 mouth [place] 00 :00 every 6 Medical (six) Branch hours as needed for Pain. ondansetron 2022- No [id number] 4mg Take 1 [facility] 4 mg 2-08 -21 tablet by ity of disintegrat 00:00: 00:00 [place] tablet 00 :00 every 4 Medica l (four) Branch hours as needed for Nausea and Vomiting (N/V). eletriptan 2020- No [id number] 40mg Take 1 Tab [place] (RELPAX) 40 8-19 02-25 by mouth Col lege MG tablet 00:00: 00:00 once as of 00 :00 needed for Medicin up to 1 e dose. may repeat in 2 hours if necessary Spacer/Aero 2015-0 Yes 1{devic 1 Device [place] Chamber 7-13 e} daily. Summer Set Mouthpiece 00:00: of [facility] 00 Medicin e Spacer/Aero 2015-0 Yes 1{devic 1 Device [place] Chamber 7-13 e} daily. Summer Set Mouthpiece 00:00: of [facility] 00 Medicin e Spacer/Aero 2015-0 Yes 1{devic 1 Device [facility] Chamber 7-13 e} daily. Summer Set Mouthpiece 00:00: of [facility] 00 Medicin e Spacer/Aero 2015-0 Yes 1{devic 1 Device [place] Chamber 7-13 e} daily. Summer Set Mouthpiece 00:00: of [facility] 00 Medicin e Spacer/Aero 2015-0 Yes 1{devic 1 Device [place] Chamber 7-13 e} daily. Summer Set Mouthpiece 00:00: of [facility] 00 Medicin e Spacer/Aero 2015-0 Yes 1{devic 1 Device [facility] Chamber 7-13 e} daily. Summer Set Mouthpiece 00:00: of [facility] 00 Medicin e Spacer/Aero 2015-0 Yes 1{devic 1 Device [facility] Chamber 7-13 e} daily. Summer Set Mouthpiece 00:00: of [facility] 00 Medicin e Spacer/Aero 2015-0 Yes 1{devic 1 Device [facility] Chamber 7-13 e} daily. Summer Set Mouthpiece 00:00: of [facility] 00 Medicin e Spacer/Aero 2015-0 Yes 1{devic 1 Device [facility] Chamber 7-13 e} daily. Summer Set Mouthpiece 00:00: of [facility] 00 Medicin e Advair HFA Advair HFA No Advair HFA [...] HFA ProAir HFA Yes Nithya (Prior Common [facility]: [facility] Ref#:[id number] CHI [id number]) [facility] Advair HFA Advair HFA Yes Nithya (Prior Common [facility]: [facility] Ref#:[id number] CHI 39) [facility] Advair HFA Advair HFA No QD Advair [...] (90 Base) Base) Base) MCG/ACT MCG/ACT MCG/ACT Bumex 0.5 Bumex 0.5 No 1{table Bumex 0.5 MG MG t} MG ProAir HFA ProAir HFA No ProAir HFA 108 (90 108 (90 108 (90 Base) Base) Base) MCG/ACT MCG/ACT MCG/ACT Linzess 145 Linzess 145 No Linzess mcg mcg 145 mcg Advair HFA Advair HFA No QD Advair HFA 230-21 230-21 230-21 MCG/ACT MCG/ACT MCG/ACT Immunizations Ordered Immunization Filled Immunization Date Status Commen ts Source Name Name Td 2013-02-23 Completed [facility] 00:00:00 of Medicine Tdap 2013-02-23 Completed [facility] 00:00:00 of Medicine Tdap 2013-02-23 Completed [facility] 00:00:00 of Medicine Tdap 2013-02-23 Completed [facility] 00:00:00 of Medicine Tdap 2013-02-23 Completed [facility] 00:00:00 of Medicine Influenza Quad-PF 2012-12-17 Completed [facility] 00:00:00 of Medicine Influenza Quad-PF 2012-12-17 Completed [facility] 00:00:00 of Medicine Influenza Quad-PF 2012-12-17 Completed [facility] 00:00:00 of Medicine Influenza Quad-PF 2012-12-17 Completed [facility] 00:00:00 of Medicine Vital Signs Vital Name Observation Time Observation Value Comments Source Body height 2022-07-03 15:17:[address] [facility] Body temperature 2022-05-16 01:23:00 37.17 [facility] Respiratory rate 2022-05-16 01:23:00 17 /min [facility] Body height 2022-05-16 01:23:[address] [facility] Body weight 2022-05-16 01:23:[address] [facility] BMI 2022-05-16 01:23:00 33.72 kg/m2 [facility] [place] [facility] Oxygen saturation in 2022-05-16 01:23:00 99 /min [facility] of Arterial blood by [facility] Pulse oximetry Branch Systolic blood 2022-05-16 01:23:00 111 mm[Hg] Univer sity of pressure [facility] Diastolic blood 2022-05-16 01:23:00 73 mm[Hg] Unive rsity of pressure [facility] Heart rate 2022-05-16 01:23:00 68 /min [facility] [place] [facility] Systolic blood 2022-04-28 01:06:00 99 mm[Hg] Univer sity of pressure [facility] Diastolic blood 2022-04-28 01:06:00 56 mm[Hg] Unive rsity of pressure [facility] Heart rate 2022-04-28 01:06:00 70 /min [facility] Body temperature 2022-04-28 01:06:00 36.33 [facility] Respiratory rate 2022-04-28 01:06:00 16 /min Univ ers[facility] Branch Body height 2022-04-28 01:06:00 154.9 cm [facility] Body weight 2022-04-28 01:06:00 85.548 kg [facility] BMI 2022-04-28 01:06:00 35.64 kg/m2 [facility] Oxygen saturation in 2022-04-28 01:06:00 99 /min University of Arterial blood by [facility] Pulse oximetry Branch HEIGHT 2022-04-23 06:35:00 154.9 cm WEIGHT 2022-04-23 06:35:00 84.46 kg HEIGHT 2022-04-12 17:19:00 154.9 cm WEIGHT 2022-04-12 17:19:00 89.359 kg HEIGHT 2022-04-23 06:35:00 154.9 cm WEIGHT 2022-04-23 06:35:00 84.46 kg HEIGHT 2022-04-12 17:19:00 154.9 cm WEIGHT 2022-04-12 17:19:00 89.359 kg height 2022-03-05 11:40:00 62.5 [in_i] Common [facility] weight 2022-03-05 11:40:00 198.8 [lb_av] [facility] temperature 2022-03-05 11:40:00 98.1 [degF] Common S [facility] bmi 2022-03-05 11:40:00 35.78 kg/m2 [facility] oximetry 2022-03-05 11:40:00 100 % [facility] respiratory rate 2022-03-05 11:40:00 16 /min Comm on [facility] blood pressure 2022-03-05 11:40:00 112 mm[Hg] [facility] systolic [facility] blood pressure 2022-03-05 11:40:00 60 mm[Hg] [facility] diastolic [facility] Systolic blood 2022-02-21 17:10:00 103 mm[Hg] [facility] pressure Medicine Diastolic blood 2022-02-21 17:10:00 72 mm[Hg] [facility] pressure Medicine Heart rate 2022-02-21 17:10:00 62 /min [facility] Body height 2022-02-21 17:10:00 154.9 cm [facility] Body weight 2022-02-21 17:10:00 94.439 kg [facility] BMI 2022-02-21 17:10:00 39.34 kg/m2 [facility] Systolic blood 2022-02-13 21:00:00 114 mm[Hg] [facility] of pressure Medicine Diastolic blood 2022-02-13 21:00:00 76 mm[Hg] [place] [facility] of pressure Medicine Heart rate 2022-02-13 21:00:00 68 /min [facility] Body height 2022-02-13 21:00:00 154.9 cm [facility] Body weight 2022-02-13 21:00:00 95 kg [facility] BMI 2022-02-13 21:00:00 39.57 kg/m2 [facility] Body height 2022-02-01 15:50:00 154.9 cm [facility] HEIGHT 2022-01-29 06:40:00 154.9 cm WEIGHT 2022-01-29 06:40:00 101.7 kg HEIGHT 2022-01-19 15:58:00 154.9 cm WEIGHT 2022-01-19 15:58:00 100.245 kg HEIGHT 2022-01-29 06:40:00 154.9 cm WEIGHT 2022-01-29 06:40:00 101.7 kg HEIGHT 2022-01-19 15:58:00 154.9 cm WEIGHT 2022-01-19 15:58:00 100.245 kg Systolic blood 2022-01-18 19:15:00 101 mm[Hg] [facility] pressure Medicine Diastolic blood 2022-01-18 19:15:00 69 mm[Hg] [facility] Medicine Heart rate 2022-01-18 19:15:00 77 /min [facility] Body height 2022-01-18 19:15:00 [facility].9 [facility] Body weight 2022-01-18 19:15:00 100.517 kg [facility] BMI 2022-01-18 19:15:00 41.87 kg/m2 [facility] Systolic blood 2021-12-31 15:20:00 115 mm[Hg] [facility]iver [facility] of pressure [facility] Diastolic blood 2021-12-31 15:20:00 84 mm[Hg] Unive rsity of pressure [facility] Heart rate 2021-12-31 15:20:00 78 /min [facility] Body temperature 2021-12-31 15:20:00 37.17 Laura [facility] Respiratory rate 2021-12-31 15:20:00 16 /min [facility] Body height 2021-12-31 15:20:00 154.9 cm [facility] Body weight 2021-12-31 15:20:00 101.861 kg [facility] BMI 2021-12-31 15:20:00 42.43 kg/m2 [facility] Oxygen saturation in 2021-12-31 15:20:00 99 /min [facility] of Arterial blood by [facility] Pulse oximetry Branch Systolic blood 2021-06-07 15:45:00 111 mm[Hg] [facility] pressure Medicine Diastolic blood 2021-06-07 15:45:00 64 mm[Hg] [facility] pressure Medicine Heart rate 2021-06-07 15:45:00 74 /min [facility] Body height 2021-06-07 15:45:00 154.9 cm [facility] Body weight 2021-06-07 15:45:00 96.616 kg [facility] BMI 2021-06-07 15:45:00 40.25 kg/m2 [facility] Systolic blood 2021-05-10 19:46:00 100 mm[Hg] [facility] pressure Medicine Diastolic blood 2021-05-10 19:46:00 69 mm[Hg] [facility] Medicine Heart rate 2021-05-10 19:46:00 77 /min [facility] Body height 2021-05-10 19:46:00 154.9 cm [facility] Body weight 2021-05-10 19:46:00 98.431 kg [facility] BMI 2021-05-10 19:46:00 41.00 kg/m2 [facility] Body weight 2021-05-04 21:58:00 98.884 kg [facility] BMI 2021-05-04 21:58:00 41.19 kg/m2 [facility] height 2021-04-10 14:00:00 62.5 [in_i] [facility] weight 2021-04-10 14:00:00 222 [lb_av] [facility] bmi 2021-04-10 14:00:00 39.95 kg/m2 [facility] Systolic blood 2021-03-16 20:50:00 109 mm[Hg] [employer] [facility] pressure Medicine Diastolic blood 2021-03-16 20:50:00 66 mm[Hg] [facility] of pressure Medicine Heart rate 2021-03-16 20:50:00 71 /min [facility] Body height 2021-03-16 20:50:00 154.9 cm [facility] Body weight 2021-03-16 20:50:00 97.07 kg [facility] BMI 2021-03-16 20:50:00 40.43 kg/m2 [facility] BP Diastolic 2021-02-21 00:00:00 66 mm[Hg] [facility] Height 2021-02-21 00:00:00 61 [in_i] [facility] BMI (Body Mass 2021-02-21 00:00:00 41.4 kg/m2 [facility] BP Systolic 2021-02-21 00:00:00 128 mm[Hg] [facility] Body Weight 2021-02-21 00:00:00 219 [lb_av] [facility] BP Diastolic 2021-01-17 00:00:00 68 mm[Hg] [facility] Height 2021-01-17 00:00:00 61 [in_i] [facility] BMI (Body Mass 2021-01-17 00:00:00 41.9 kg/m2 [facility] BP Systolic 2021-01-17 00:00:00 126 mm[Hg] [facility] Body Weight 2021-01-17 00:00:00 222 [lb_av] [facility] BP Diastolic 2020-12-27 00:00:00 66 mm[Hg] [facility] Height 2020-12-27 00:00:00 61 [in_i] [facility] BMI (Body Mass 2020-12-27 00:00:00 41.9 kg/m2 [facility] BP Systolic 2020-12-27 00:00:00 130 mm[Hg] [facility] Body Weight 2020-12-27 00:00:00 221.7 [lb_av] [facility] BP Diastolic 2020-11-15 00:00:00 68 mm[Hg] [facility] Height 2020-11-15 00:00:00 61 [in_i] [facility] BMI (Body Mass 2020-11-15 00:00:00 42.3 kg/m2 [facility] BP Systolic 2020-11-15 00:00:00 128 mm[Hg] [facility] Body Weight 2020-11-15 00:00:00 224 [lb_av] [facility] Systolic blood 2020-05-19 20:04:00 105 mm[Hg] [facility] Medicine Diastolic blood 2020-05-19 20:04:00 70 mm[Hg] [facility] Medicine Heart rate 2020-05-19 20:04:00 75 /min [facility] Body temperature 2020-05-19 20:04:00 36.56 Laura [facility] Respiratory rate 2020-05-19 20:04:00 16 /min [facility] Body height 2020-05-19 20:04:00 154.9 cm [facility] Body weight 2020-05-19 20:04:00 90.719 kg [facility] BMI 2020-05-19 20:04:00 37.79 kg/m2 [facility] Systolic blood 2020-05-19 20:04:00 105 mm[Hg] [facility] Medicine Diastolic blood 2020-05-19 20:04:00 70 mm[Hg] [facility] Medicine Heart rate 2020-05-19 20:04:00 75 /min [facility] Body temperature 2020-05-19 20:04:00 36.56 Laura [facility] Respiratory rate 2020-05-19 20:04:00 16 /min [facility] Body height 2020-05-19 20:04:00 154.9 cm [facility] Body weight 2020-05-19 20:04:00 90.719 [facility] BMI 2020-05-19 20:04:00 37.79 kg/m2 [facility] Systolic blood 2022-04-23 08:58:00 116 mm[Hg] [facility] Diastolic blood 2022-04-23 08:58:00 70 mm[Hg] [facility] Heart rate 2022-04-23 08:58:00 65 /min [facility] Body temperature 2022-04-23 08:58:00 36.22 Laura [facility] Respiratory rate 2022-04-23 08:58:00 18 /min [facility] Oxygen saturation in 2022-04-23 08:58:00 99 /min [facility] Arterial blood by Medical Ce nter Pulse oximetry Body height 2022-04-23 06:35:00 154.9 cm [facility] Body weight 2022-04-23 06:35:00 84.46 kg [facility] BMI 2022-04-23 06:35:00 35.18 kg/m2 [facility] Systolic blood 2022-01-30 15:46:00 114 mm[Hg] [facility] Diastolic blood 2022-01-30 15:46:00 70 mm[Hg] [facility] Heart rate 2022-01-30 15:46:00 64 /min [facility] Body temperature 2022-01-30 15:46:00 37.06 Laura [facility] Respiratory rate 2022-01-30 15:46:00 19 /min [facility] Oxygen saturation in 2022-01-30 15:46:00 98 /min [facility] Arterial blood by Medical Ce nter Pulse oximetry Systolic blood 2022-01-29 15:59:00 107 mm[Hg] [facility] Diastolic blood 2022-01-29 15:59:00 75 mm[Hg] [facility] Heart rate 2022-01-29 15:59:00 82 /min [facility] Body temperature 2022-01-29 15:59:00 36.5 Laura [facility] Respiratory rate 2022-01-29 15:59:00 16 /min [facility] Oxygen saturation in 2022-01-29 15:59:00 96 /min [facility] Arterial blood by Medical Ce ntmaya Pulse oximetry Body height 2022-01-29 06:40:00 154.9 cm [facility] Body weight 2022-01-29 06:40:00 101.7 kg [facility] BMI 2022-01-29 06:40:00 42.36 kg/m2 [facility] Procedures Procedure Date / Time Performing Source Performed Clinician POCT MOLECULAR STREP 2022-05-16 Unknown, [facility] 01:28:00 Attending [facility] FOLATE 2022-05-14 [facility] f 12:54:58 Medicine VITAMIN B12 2022-05-14 [facility] f 12:54:58 Medicine IRON, TIBC AND FERRITIN PANEL 2022-05-14 [facility] 12:54:58 Medicine PREALBUMIN 2022-05-14 [facility] f 12:54:58 Medicine HEMOGLOBIN A1C 2022-05-14 [facility] f 12:54:58 Medicine LIPID PANEL 2022-05-14 [facility] f 12:54:58 Medicine COMPREHENSIVE METABOLIC PANEL 2022-05-14 [facility] 12:54:58 Medicine CBC W/AUTO DIFF WITH PLATELETS 2022-05-14 [facility] 12:54:58 Medicine VITAMIN D 25 HYDROXY 2022-05-14 [facility]ge of 12:54:58 Medicine VITAMIN B1 2022-05-14 [facility] f 12:54:58 Medicine POCT TEST 2022-04-28 [facility] o f 01:25:00 [facility] POCT URINALYSIS 2022-04-28 [facility] of 01:11:00 [facility] CONSENT/REFUSAL FOR DIAGNOSIS AND 2022-04-28 [facility] TREATMENT 01:02:36 Unassigned, No [facility] ASSIGNMENT OF BENEFITS 2022-04-28 Doctor Universit y of 01:02:12 Unassigned, No [facility] REPORT OF PROCEDURE - ENDOSCOPY 2022-04-23 Jose [facility] URL 08:21:10 [facility] TISSUE EXAM 2022-04-[address] [facility] 08:00:00 [facility] EGD, WITH BALLOON DILATION 2022-04-23 [facility] 07:38:00 [facility] POCT , URINE 2022-04-[address] [facility] [facility] 06:38:00 [facility] [place] UPPER GI INCLUDING CLINICAL MANAGER KUB 2022-03-[address] [facility] 10:39:00 [facility] POCT-GLUCOSE METER 2022-01-[address] [facility] 08:12:00 [facility] BASIC METABOLIC PANEL 2022-01-30 Lightle, Mando [facility]ILL[facility] 04:41:00 [facility] CBC W/PLT COUNT & AUTO 2022-01-30 Lightle, Mando [facility] DIFFERENTIAL 04:41:00 [facility] MAGNESIUM 2022-01-30 Lightle, [facility] 04:41:00 [facility] PHOSPHORUS 2022-01-30 Lightle, [facility] 04:41:00 [facility] CBC W/PLT COUNT & AUTO 2022-01-30 Lightle, Mando [facility] DIFFERENTIAL 04:41:00 [facility] POCT-GLUCOSE METER 2022-01-[address] [facility] 20:49:00 [facility] TISSUE EXAM 2022-01-[address] [facility] 09:30:00 [facility] ABORH, MANUAL 2022-01-[address] [facility] 09:06:00 [facility] TYPE AND SCREEN, AUTOMATED 2022-01-[address] [facility] 08:08:00 [facility] ROBOTIC LAPAROSCOPY,LONGITUDINAL 2022-01-29 Jose, [facility] SLEEVE GASTRECTOMY 07:45:00 [facility] PROCEDURE W/ DAVINCI XI 2022-01-29 Jose, [facility] 07:45:00 [facility] GASTRECTOMY, SLEEVE, LAPAROSCOPIC 2022-01-29 oJse, [facility] 07:30:00 [facility] POCT , URINE 2022-01-[address] [facility] 06:40:00 [facility] PERMANENT LAB REPORT - SCAN 2022-01-29 Provider, Default [facility] 00:00:00 [facility] EKG-SCANNED 2022-01-29 Provider, Default [facility] 00:00:00 [facility] ECG 12-LEAD 2022-01-01 Unknown, Hl7 [facility] 11:39:05 [facility] ECG 12-LEAD 2022-01-01 Unknown, Hl7 [facility] 11:39:05 [facility] POCT MOLECULAR FLU 2021-12-31 [facility] o f 15:25:00 [facility] POCT MOLECULAR STREP 2021-12-31 [facility] of 15:21:00 [facility] SLEEP EQUIPMENT DOWNLOAD 2021-12-07 [facility] 09:16:48 Medicine CPAP MACHINE 2021-07-27 [facility] f 00:00:00 Medicine POLYSOMNOGRAPHY 2021-06-[address] [facility] 22:16:16 [facility] POLYSOMNOGRAPHY REPORT - SCAN 2021-06-14 Provider, Default [facility] 00:00:00 [facility] XR CHEST 2 VIEWS 2020-11-09 Patrice Brandotayo Reynoso [facility] 12:20:00 [facility] Esophagogastroduodenoscopy (Surg) [facility] Laparoscopic Cholecystectomy [facility] Plan of Care Planned Activity Planned Date Details Comments Source Future Scheduled 2024-03-22 Lipid panel (procedure) [facility] Test 00:00:00 [code = 76405736] Medical Ce nter Future Scheduled 2024-03-22 Lipid panel (procedure) [facility] Test 00:00:00 [code = 60136277] Medical Ce nter Future Scheduled 2024-03-22 Lipid panel (procedure) [facility] Test 00:00:00 [code = 37663183] Medical Ce nter Future Scheduled 2024-03-22 Lipid panel (procedure) [facility] Test 00:00:00 [code = 04593621] Medical Ce nter Future Scheduled 2024-03-22 Lipid panel (procedure) [facility] Test 00:00:00 [code = 61757065] Medical Ce nter Future Scheduled 2024-03-22 Lipid panel (procedure) [facility] Test 00:00:00 [code = 44061656] Medical Ce nter Future Scheduled 2024-03-22 Lipid panel (procedure) [facility] Test 00:00:00 [code = 92982382] Medical Ce nter Future Scheduled 2024-03-22 Lipid panel (procedure) [facility] Test 00:00:00 [code = 55387469] Medical Ce nter Future Scheduled 2024-03-22 Lipid panel (procedure) [facility] Test 00:00:00 [code = 53630109] Medical Ce nter Future Scheduled 2024-03-22 Lipid panel (procedure) [facility] Test 00:00:00 [code = 91514884] Medical Ce nter Future Scheduled 2024-03-22 Lipid panel (procedure) [facility] Test 00:00:00 [code = 15435084] Medical Ce nter Future Scheduled 2024-03-22 Lipid panel (procedure) [facility] Test 00:00:00 [code = 18557212] Medical Ce nter Future Scheduled 2024-03-22 Lipid panel (procedure) [facility] Test 00:00:00 [code = 17106470] Medical Ce nter Future Scheduled 2024-03-22 Lipid panel (procedure) [facility] Test 00:00:00 [code = 19304858] Medical Ce nter Future Scheduled 2023-04-[address] [facility] Test 00:00:00 [facility] Scre[facility] (12+) [code = Tobacco Cessation Counseling and Screening (12+)] Future Scheduled 2023-04-[address] [facility] Test 00:00:00 [facility] Screening (12+) [code = Tobacco Cessation Counseling and Screening (12+)] Future Scheduled 2023-04-[address] [facility] Test 00:00:00 [facility] r Screening (12+) [code = Tobacco Cessation Counseling and Screening (12+)] Future Scheduled 2023-04-[address] [facility] Test 00:00:00 [facility] r Screening (12+) [code = Tobacco Cessation Counseling and Screening (12+)] Future Scheduled 2023-02-23 DTAP/TDAP/TD VACCINES CH I [...] Cessation Counseling and Screening (12+)] Future Scheduled 2022-11-[address] [facility] Test 00:00:00 (Season Ended) [code = Medic al Center INFLUENZA VACCINE (Season Ended)] Future Scheduled 2022-11-[address] [facility] Test 00:00:00 (Season Ended) [code = Medic al Center INFLUENZA VACCINE (Season Ended)] Future Scheduled 2022-11-[address] [facility] Test 00:00:00 (Season Ended) [code = Medic al Center INFLUENZA VACCINE (Season Ended)] Future Scheduled 2022-03-[address] [facility] Test 00:00:00 (12+) [code = Medical Center DEPRESSION SCREENING (12+)] Future Scheduled 2022-03-[address] [facility] Test 00:00:00 (12+) [code = Medical Center DEPRESSION SCREENING (12+)] Future Scheduled 2022-03-[address] [facility] Test 00:00:00 (12+) [code = Medical Center DEPRESSION SCREENING (12+)] Future Scheduled 2022-03-[address] [facility] Test 00:00:00 (12+) [code = Medical Center DEPRESSION SCREENING (12+)] Future Scheduled 2022-03-[address] [facility] Test 00:00:00 (12+) [code = Medical Center DEPRESSION SCREENING (12+)] Future Scheduled 2022-03-[address] [facility] Test 00:00:00 (12+) [code = Medical Center DEPRESSION SCREENING (12+)] Future Scheduled 2022-03-[address] [facility] Test 00:00:00 (12+) [code = Medical Center DEPRESSION SCREENING (12+)] Future Scheduled 2022-03-07 MRI BRAIN WO CONTRAST [facility] Test 00:00:00 [code = 55050-1] 03/07/2022, of Medicine Expires: 02/21/2023 Future Scheduled 2022-03-07 MRA HEAD WO CONTRAST Expected: [facility] Test 00:00:00 [code = 18101-6] 03/07/2022, of Medicine Expires: 02/21/2023 Future Scheduled 2022-02-21 Pneumococcal Combined Ba [facility] Test 11:09:48 (1 - PCV) [code = of Medicin e Pneumococcal Combined (1 - PCV)] Future Scheduled 2022-02-21 HPV VACCINE (1 - 2-dose [facility] Test 11:09:48 series) [code = HPV of Medic ine VACCINE (1 - 2-dose series)] Future Scheduled 2022-02-21 Hepatitis C screening Ba [facility] Test 11:09:48 (procedure) [code = of Medic ine 363612325] Future Scheduled 2022-02-21 Human immunodeficiency B [facility] Test 11:09:48 virus screening of Medicine (procedure) [code = 785244381] Future Scheduled 2022-02-21 COVID-19 Vaccine (3 - Ba [facility] Test 11:09:48 Booster for Pfizer of Medici ne series) [code = COVID-19 Vaccine (3 - Booster for Pfizer series)] Future Scheduled 2022-02-21 FLU VACCINE > 6 MONTHS B [facility] Test 11:09:48 [code = FLU VACCINE > 6 of M edicine MONTHS] Future Scheduled 2022-02-21 BMI FOLLOW UP PLAN [facility] Test 11:09:48 [code = BMI FOLLOW UP of Med icine PLAN] Future Scheduled 2022-02-21 TETANUS SHOT (ADULT) [facility] Test 11:09:48 [code = TETANUS SHOT of Medi cine (ADULT)] Future Scheduled 2022-02-21 Screening for malignant [facility] Test 11:09:48 neoplasm of cervix of Medici ne (procedure) [code = 612035081] Future Scheduled 2022-02-19 Pneumococcal Combined Ba [facility] Test 12:15:55 (1 - PCV) [code = of Medicin e Pneumococcal Combined (1 - PCV)] Future Scheduled 2022-02-19 HPV VACCINE (1 - 2-dose [facility] Test 12:15:55 series) [code = HPV of Medic ine VACCINE (1 - 2-dose series)] Future Scheduled 2022-02-19 Hepatitis C screening Ba [facility] Test 12:15:55 (procedure) [code = of Medic ine 421780591] Future Scheduled 2022-02-19 Human immunodeficiency [facility] [employer] Test 12:15:55 virus screening of Medicine (procedure) [code = 355478248] Future Scheduled 2022-02-19 COVID-19 Vaccine (3 - [facility] [employer] Test 12:15:55 Booster for Pfizer of Medici ne series) [code = COVID-19 Vaccine (3 - Booster for Pfizer series)] Future Scheduled 2022-02-19 FLU VACCINE > 6 MONTHS [facility] [employer] Test 12:15:55 [code = FLU VACCINE > 6 of M edicine MONTHS] Future Scheduled 2022-02-19 BMI FOLLOW UP PLAN [employer] Test 12:15:55 [code = BMI FOLLOW UP of Med icine PLAN] Future Scheduled 2022-02-19 TETANUS SHOT (ADULT) [employer] Test 12:15:55 [code = TETANUS SHOT of Medi cine (ADULT)] Future Scheduled 2022-02-19 Screening for malignant [employer] Test 12:15:55 neoplasm of cervix of Medici ne (procedure) [code = 493930890] Future Scheduled 2022-01-18 BMI FOLLOW UP PLAN [employer] [facility] 14:16:15 [code = BMI FOLLOW UP of Med icine PLAN] Future Scheduled 2022-01-18 Pneumococcal Combined [facility] [employer] Test 14:15:02 (1 - PCV) [code = of Medicin e Pneumococcal Combined (1 - PCV)] Future Scheduled 2022-01-18 HPV VACCINE (1 - 2-dose [facility] Test 14:15:02 series) [code = HPV of Medic ine VACCINE (1 - 2-dose series)] Future Scheduled 2022-01-18 Hepatitis C screening [facility] [employer] Test 14:15:02 (procedure) [code = of Medic ine 974446983] Future Scheduled 2022-01-18 Human immunodeficiency [facility] [employer] Test 14:15:02 virus screening of Medicine (procedure) [code = 645940264] Future Scheduled 2022-01-18 COVID-19 Vaccine (3 - [facility] [employer] Test 14:15:02 Booster for Pfizer of Medici ne series) [code = COVID-19 Vaccine (3 - Booster for Pfizer series)] Future Scheduled 2022-01-18 FLU VACCINE > 6 MONTHS [facility] [employer] Test 14:15:02 [code = FLU VACCINE > 6 of M edicine MONTHS] Future Scheduled 2022-01-18 TETANUS SHOT (ADULT) [employer] Test 14:15:02 [code = TETANUS SHOT of Medi cine (ADULT)] Future Scheduled 2022-01-18 Screening for malignant [facility] Test 14:15:02 neoplasm of cervix of Medici ne (procedure) [code = 106359289] Future Scheduled 2022-01-12 Pneumococcal Combined Ba [facility] Test 10:59:23 (1 - PCV) [code = of Medicin e Pneumococcal Combined (1 - PCV)] Future Scheduled 2022-01-12 HPV VACCINE (1 - 2-dose [facility] Test 10:59:23 series) [code = HPV of Medic ine VACCINE (1 - 2-dose series)] Future Scheduled 2022-01-12 Hepatitis C screening Ba [facility] Test 10:59:23 (procedure) [code = of Medic ine 311816299] Future Scheduled 2022-01-12 Human immunodeficiency B [facility] Test 10:59:23 virus screening of Medicine (procedure) [code = 686983041] Future Scheduled 2022-01-12 COVID-19 Vaccine (3 - Ba [facility] Test 10:59:23 Booster for Pfizer of Medici ne series) [code = COVID-19 Vaccine (3 - Booster for Pfizer series)] Future Scheduled 2022-01-12 FLU VACCINE > 6 MONTHS B [facility] Test 10:59:23 [code = FLU VACCINE > 6 of M edicine MONTHS] Future Scheduled 2022-01-12 BMI FOLLOW UP PLAN [facility] Test 10:59:23 [code = BMI FOLLOW UP of Med icine PLAN] Future Scheduled 2022-01-12 TETANUS SHOT (ADULT) [facility] Test 10:59:23 [code = TETANUS SHOT of Medi cine (ADULT)] Future Scheduled 2022-01-12 Screening for malignant [facility] Test 10:59:23 neoplasm of cervix of Medici ne (procedure) [code = 310980677] Future Scheduled 2021-11-23 INFLUENZA VACCINE (#1) C [...] series)] Future Scheduled 2021-06-07 Pneumococcal Combined Ba [facility] Test 10:47:54 (1 of 4 - PCV13) [code of Me dicine = Pneumococcal Combined (1 of 4 - PCV13)] Future Scheduled 2021-06-07 HPV VACCINE (1 - 2-dose [facility] Test 10:47:54 series) [code = HPV of Medic ine VACCINE (1 - 2-dose series)] Future Scheduled 2021-06-07 Hepatitis C screening [facility] Test 10:47:54 (procedure) [code = of Medic ine 889827934] Future Scheduled 2021-06-07 Human immunodeficiency B [facility] Test 10:47:54 virus screening of Medicine (procedure) [code = 537519934] Future Scheduled 2021-06-07 Screening for malignant [facility] Test 10:47:54 neoplasm of cervix of Medici ne (procedure) [code = 904015733] Future Scheduled 2021-06-07 FLU VACCINE > 6 MONTHS Postponed from [facility] Test 10:47:54 [code = FLU VACCINE > 6 10/23/2020 of M edicine MONTHS] (Postpone Reason: Patient declined today) Future Scheduled 2021-06-07 COVID-19 Vaccine (3 - Ba [facility] Test 10:47:54 Booster for Pfizer of Medici ne series) [code = COVID-19 Vaccine (3 - Booster for Pfizer series)] Future Scheduled 2021-06-07 BMI FOLLOW UP PLAN [facility] Test 10:47:54 [code = BMI FOLLOW UP of Med icine PLAN] Future Scheduled 2021-06-07 TETANUS SHOT (ADULT) [facility] Test 10:47:54 [code = TETANUS SHOT of Medi cine (ADULT)] Future Scheduled 2021-05-22 COVID-19 VACCINE (3 - [facility] 00:[facility]00 Booster for Pfizer Medical C enter series) [code = COVID-19 VACCINE (3 - Booster for Pfizer series)] Future Scheduled 2021-05-22 COVID-19 VACCINE (3 - [facility] Test 00:00:00 Booster for Pfizer Medical C enter series) [code = COVID-19 VACCINE (3 - Booster for Pfizer series)] Future Scheduled 2021-05-22 COVID-19 VACCINE (3 - [facility] Test 00:00:00 Booster for Pfizer Medical C enter series) [code = COVID-19 VACCINE (3 - Booster for Pfizer series)] Future Scheduled 2021-05-19 Pneumococcal Combined Ba [facility] Test 16:29:29 (1 of 4 - PCV13) [code of Me dicine = Pneumococcal Combined (1 of 4 - PCV13)] Future Scheduled 2021-05-19 HPV VACCINE (1 - 2-dose [facility] Test 16:29:29 series) [code = HPV of Medic ine VACCINE (1 - 2-dose series)] Future Scheduled 2021-05-19 Hepatitis C screening Ba [facility] Test 16:29:29 (procedure) [code = of Medic ine 299431139] Future Scheduled 2021-05-19 Human immunodeficiency B [facility] Test 16:29:29 virus screening of Medicine (procedure) [code = 227331127] Future Scheduled 2021-05-19 Screening for malignant [facility] Test 16:29:29 neoplasm of cervix of Medici ne (procedure) [code = 378798353] Future Scheduled 2021-05-19 FLU VACCINE > 6 MONTHS B [facility] Test 16:29:29 [code = FLU VACCINE > 6 of M edicine MONTHS] Future Scheduled 2021-05-19 COVID-19 Vaccine (3 - Ba [facility] [employer] Test 16:29:29 Booster for Pfizer of Medici ne series) [code = COVID-19 Vaccine (3 - Booster for Pfizer series)] Future Scheduled 2021-05-19 BMI FOLLOW UP PLAN [facility] Test 16:29:29 [code = BMI FOLLOW UP of Med icine PLAN] Future Scheduled 2021-05-19 TETANUS SHOT (ADULT) [facility] Test 16:29:29 [code = TETANUS SHOT of Medi cine (ADULT)] Future Scheduled 2021-05-04 COVID-19 Vaccine (3 - [facility] [employer] Test 15:58:34 Booster for Pfizer of Medici ne series) [code = COVID-19 Vaccine (3 - Booster for Pfizer series)] Future Scheduled 2021-05-04 BMI FOLLOW UP PLAN [facility] [employer] Test 15:58:34 [code = BMI FOLLOW UP of Med icine PLAN] Future Scheduled 2021-05-04 TETANUS SHOT (ADULT) [facility] Test 15:58:34 [code = TETANUS SHOT of Medi cine (ADULT)] Future Scheduled 2021-05-04 Pneumococcal Combined Ba or [employer] Test 15:58:34 (1 of 4 - PCV13) [code of Me dicine = Pneumococcal Combined (1 of 4 - PCV13)] Future Scheduled 2021-05-04 HPV VACCINE (1 - 2-dose [facility] Test 15:58:34 series) [code = HPV of Medic ine VACCINE (1 - 2-dose series)] Future Scheduled 2021-05-04 Hepatitis C screening Ba [facility] Test 15:58:34 (procedure) [code = of Medic ine 379378600] Future Scheduled 2021-05-04 Human immunodeficiency B [facility] Test 15:58:34 virus screening of Medicine (procedure) [code = 719898209] Future Scheduled 2021-05-04 Screening for malignant [facility] Test 15:58:34 neoplasm of cervix of Medici ne (procedure) [code = 486180311] Future Scheduled 2021-05-04 FLU VACCINE > 6 MONTHS B [facility] Test 15:58:34 [code = FLU VACCINE [...] Scheduled 2021-03-22 HPV VACCINE (1 - 2-dose [facility] Test 08:22:43 series) [code = HPV of Medic ine VACCINE (1 - 2-dose series)] Future Scheduled 2021-03-22 Hepatitis C screening Ba [facility] Test 08:22:43 (procedure) [code = of Medic ine 549231148] Future Scheduled 2021-03-22 Human immunodeficiency B [facility] Test 08:22:43 virus screening of Medicine (procedure) [code = 576700188] Future Scheduled 2021-03-22 Screening for malignant [facility] Test 08:22:43 neoplasm of cervix of Medici ne (procedure) [code = 014750520] Future Scheduled 2021-03-22 FLU VACCINE > 6 MONTHS B [facility] Test 08:22:43 [code = FLU VACCINE > 6 of M edicine MONTHS] Future Scheduled 2021-03-22 COVID-19 Vaccine (2 - Ba [facility] Test 08:22:43 Pfizer 2-dose series) of Med icine [code = COVID-19 Vaccine (2 - Pfizer 2-dose series)] Future Scheduled 2021-03-22 BMI FOLLOW UP PLAN [facility] r Summer Set Test 08:22:43 [code = BMI FOLLOW UP of Med icine PLAN] Future Scheduled 2021-03-22 TETANUS SHOT (ADULT) [facility] Test 08:22:43 [code = TETANUS SHOT of Medi cine (ADULT)] Future Scheduled 2021-03-16 CBC W/O DIFF W PLT Ordered: [facility] Test 15:02:34 [code = 6690-2] 03/16/2021 of Medicine Future Scheduled 2021-03-16 COMPREHENSIVE METABOLIC Ordered: [facility] Test 15:02:34 PANEL [code = 01890-2] 03/16/2021 of Me dicine Future Scheduled 2021-03-16 IRON, TIBC AND FERRITIN Ordered: [facility] Test 15:02:34 PANEL [code = NOCPT] 03/16/2021 of Medi cine Future Scheduled 2021-03-16 CALCIUM [code = Ordered: [facility] Test 15:02:34 57082-6] 03/16/2021 of Medicine Future Scheduled 2021-03-16 ALBUMIN [code = 1751-7] Ordered: [facility] Test 15:02:34 03/16/2021 of Medicine Future Scheduled 2021-03-16 LIPID PANEL [code = Ordered: [facility] Test 15:02:34 58448-0] 03/16/2021 of Medicine Future Scheduled 2021-03-16 VITAMIN B1 [code = Ordered: [facility] [employer] Test 15:02:34 87470-4] 03/16/2021 of Medicine Future Scheduled 2021-03-16 VITAMIN B6 [code = Ordered: [facility] [employer] Test 15:02:34 90582-3] 03/16/2021 of Medicine Future Scheduled 2021-03-16 VITAMIN B12 [code = Ordered: [facility] or [employer] Test 15:02:34 2132-9] 03/16/2021 of Medicine Future Scheduled 2021-03-16 VITAMIN A [code = Ordered: [facility] Test 15:02:34 2923-1] 03/16/2021 of Medicine Future Scheduled 2021-03-16 VITAMIN D 1,25 Ordered: [facility] Test 15:02:34 DIHYDROXY [code = 03/16/2021 of Medicin e 1649-3] Future Scheduled 2021-03-16 FOLATE [code = 2284-8] Ordered: [facility] [employer] Test 15:02:34 03/16/2021 of Medicine Future Scheduled 2021-03-16 HEMOGLOBIN A1C [code = Ordered: B [facility] Test 15:02:34 4548-4] 03/16/2021 of Medicine Future Scheduled 2021-03-16 PROTIME-INR [code = Ordered: [facility] or [employer] Test 15:02:34 5902-2] 03/16/2021 of Medicine Future Scheduled 2021-03-16 URINALYSIS AUTO W/SCOPE Ordered: [facility] Test 15:02:34 [code = 65516-0] 03/16/2021 of Medicine Future Scheduled 2020-11-23 INFLUENZA [...] cervix Medical C enter (procedure) [code = 589334022] Future Scheduled 2016-06-11 Screening for malignant [facility] Test 00:00:00 neoplasm of cervix Medical C enter (procedure) [code = 345476499] Future Scheduled 2016-06-11 Screening for malignant [facility] Test 00:00:00 neoplasm of cervix Medical C enter (procedure) [code = 978906404] Future Scheduled 2016-06-11 Screening for malignant [facility] Test 00:00:00 neoplasm of cervix Medical C enter (procedure) [code = 543189133] Future Scheduled 2016-06-11 Screening for malignant [facility] Test 00:00:00 neoplasm of cervix Medical C enter (procedure) [code = 460490982] Future Scheduled 2016-06-11 Screening for malignant [facility] Test 00:00:00 neoplasm of cervix Medical C enter (procedure) [code = 550495269] Future Scheduled 2016-06-11 Screening for malignant [facility] Test 00:00:00 neoplasm of cervix Medical C enter (procedure) [code = 976594577] Future Scheduled 2016-06-11 Screening for malignant [facility] Test 00:00:00 neoplasm of cervix Medical C enter (procedure) [code = 417193982] Future Scheduled 2016-06-11 Screening for malignant [facility] Test 00:00:00 neoplasm of cervix Medical C enter (procedure) [code = 067959883] Future Scheduled 2016-06-11 Screening for malignant [facility] Test 00:00:00 neoplasm of cervix Medical C enter (procedure) [code = 940393684] Future Scheduled 2016-06-11 Screening for malignant [facility] Test 00:00:00 neoplasm of cervix Medical C enter (procedure) [code = 973071728] Future Scheduled 2016-06-11 Screening for malignant [facility] Test 00:00:00 neoplasm of cervix Medical C enter (procedure) [code = 700440666] Future Scheduled 2016-06-11 Screening for malignant [facility] Test 00:00:00 neoplasm of cervix Medical C enter (procedure) [code = 647176685] Future Scheduled 2016-06-11 Screening for malignant [facility] Test 00:00:00 neoplasm of cervix Medical C enter (procedure) [code = 683123471] Future Scheduled 2016-06-11 Screening for malignant [facility] Test 00:00:00 neoplasm of cervix Medical C enter (procedure) [code = 151554918] Future Scheduled 2016-06-11 Screening for malignant [facility] Test 00:00:00 neoplasm of cervix Medical C enter (procedure) [code = 892522064] Future Scheduled 2016-06-11 Screening for malignant [facility] Test 00:00:00 neoplasm of cervix Medical C enter (procedure) [code = 487806244] Future Scheduled 2016-06-11 Screening for malignant [facility] Test 00:00:00 neoplasm of cervix Medical C enter (procedure) [code = 891394160] Future Scheduled 2016-06-11 Screening for malignant [facility] Test 00:00:00 neoplasm of cervix Medical C enter (procedure) [code = 114803493] Future Scheduled 2016-06-11 Screening for malignant [facility] Test 00:00:00 neoplasm of cervix Medical C enter (procedure) [code = 678298964] Future Scheduled 2013-06-11 HEPATITIS C SCREENING CH [...] 0-64 YRS (1 - PCV)] Future Scheduled COV-19 Vaccine [facility] Test Evaluation [code = of Medici ne COVID-19 Vaccine Evaluation] Future Scheduled HPV VACCINE (1 - 2-dose [facility] Test series) [code = HPV of Medic ine VACCINE (1 - 2-dose series)] Future Scheduled BMI FOLLOW UP PLAN [facility] r Summer Set Test [code = BMI FOLLOW UP of Med icine PLAN] Future Scheduled HEPATITIS C SCREENING [employer] Test [code = HEPATITIS C of Medic ine SCREENING] Future Scheduled HIV SCREENING [code = [employer] [facility] HIV SCREENING] of Medicine Future Scheduled CERVICAL CANCER [facility] ollege Test SCREENING 3 YEAR FOLLOW of M edicine UP [code = CERVICAL CANCER SCREENING 3 YEAR FOLLOW UP] Future Scheduled FLU VACCINE > 6 MONTHS [employer] Test [code = FLU VACCINE > 6 of M edicine MONTHS] Future Scheduled TETANUS SHOT (ADULT) [facility] Test [code = TETANUS SHOT of Medi cine (ADULT)] Encounters Start End Encounter Admission Attending Care Care Encounter Source Date/Time Date/Time Type Type Clinicians Facility Department ID 2022-03-[address] [facility] [id number] Common 10:35:01 Nithya 23147 [facility] 2021-04-19 Outpatient Corky [facility] [id number] Common 12:28:44 Nithya [id number] [facility] 2021-04-19 Outpatient Corky [facility] [id number] Common 11:00:26 Nithya [id number] [facility] 2022-07-09 2022-07-09 Outpatient SHREYAS WATTS [facility] [id number] [facility] 08:54:22 09:19:07 ERIN ac of Medicin e 2022-07-03 2022-07-03 Office Alyse De Leon [facility] 1.2.840.114 [id number] Univers 10:20:00 10:40:00 Visit MULTISPEC 350.1.13.10 Jamil 4.2.7.2.686 [facility] [id number] [facility] jocelynn [place] [address] [address] [facility] 2022-07-03 2022-07-03 Outpatient R ALYSE DE LEON [facility] [id number] Univers 10:20:00 10:20:00 DE LEON ALYSE it y of [facility] 2022-05-15 2022-05-15 Outpatient R SABRINA [facility] [id number] Univers 18:20:00 19:50:26 MYRANDA devi [facility] 2022-05-15 2022-05-15 Urgent Myranda Schwarz [facility] 1.2.840.114 [id number] Univers 18:20:00 19:50:26 Care Unknown, Attending HEALTH 350.1.13.10 ity of [place] 4.2.7.2.686 Justino as YOLIE?BLEA [phone] [address] MEDICAL OFFICE [facility] 2022-05-09 2022-05-09 Outpatient SHREYAS VAUGHAN [facility] [id number] [facility] 13:16:08 13:36:12 EVENS quiñonez of Medicin e 2022-04-29 2022-04-29 Telephone [facility] 1..840.114 [id number] Univers 00:00:00 00:00:00 [facility] 350.1.13.10 it y of [place] 4.2.7.2.686 Justino as YOLIE?BLEA [id number] [address] MEDICAL OFFICE [facility] 2022-04-27 2022-04-27 Outpatient R ROSY [facility] [id number] Univers 18:40:00 19:32:16 IRENE devi [facility] 2022-04-27 2022-04-27 Urgent Irene Mauricio [facility] 1.2.840.114 [id number] Univers 18:40:00 19:00:00 Care Unknown, Attending HEALTH 350.1.13.10 ity of [place] 4.2.7.2.686 Justino as YOLIE?BLEA [phone] [address] MEDICAL OFFICE [facility] 2022-04-27 2022-04-27 Orders Doctor GONZALES 1.2.840.114 [id number] Univers 00:00:00 00:00:00 Only Unassigned, AZUCENA 350.1.13.10 ity of [place] [facility] 4.2.7.2.686 Justino as [phone] [address] 2022-04-23 2022-04-23 Outpatient JORY BARKER [facility] [id number] [facility] 05:54:00 09:28:00 SANTIAGO MARTINEZ 2022-04-23 2022-04-23 Hospital JORY Barker [facility] [id number] 05:54:00 09:28:00 Encounter Santiago martinez [facility] 2022-04-23 2022-04-23 [facility] [id number] 07:37:00 08:30:00 Event Vidhi [facility] 2022-04-23 2022-04-23 [facility] [id number] 07:30:00 08:00:00 Santiago martinez [facility] 2022-04-23 2022-04-23 Travel [facility] [id number] [facility] 00:00:00 00:00:00 [facility] 2022-04-12 2022-04-12 Outpatient DEYA, [facility] [id number] [facility] 09:19:01 09:39:37 ERIN Colleg e of Medicin e 2022-04-12 2022-04-12 Outpatient JORY BARKER [facility] [id number] SLE 00:00:00 00:00:00 SANTIAGO MARTINEZ 2022-04-12 2022-04-12 Travel [facility] [id number] [facility] 00:00:00 00:00:00 [facility] 2022-04-10 2022-04-10 Outpatient [facility] [id number] [facility] 00:00:00 00:00:00 Colleg e of Medicin e 2022-04-10 2022-04-10 Outpatient [facility] [id number] [facility] 00:00:00 00:00:00 Colleg e of Medicin e 2022-03-22 2022-03-22 [facility] [id number] 09:08:33 23:59:00 Encounter Evens [facility] 2022-03-22 2022-03-22 Outpatient MIKE LUND [facility] [id number] [facility] 09:08:32 23:59:00 [facility] 2022-03-13 2022-03-13 Outpatient ALEXUS SHREYAS [facility] [id number] [facility] 09:20:22 09:59:25 EVENS Whyte olamide of Medicin e 2022-03-13 2022-03-13 Orders Alexus [facility] [id number] 00:00:00 00:00:[address] [facility] 2022-03-05 2022-03-05 [facility] [id number] Co mmon 00:00:00 00:00:00 VISIT Juliano ANGEL PT - CHI LEVEL 3 [facility] 2022-02-23 2022-02-23 Outpatient SALVADOR [facility] [id number] [facility] 00:00:00 00:00:00 Fahad DAVISON of Medicin e 2022-02-21 2022-02-21 Office CHRISTIAN VALDEZ [facility] 1.2.840.114 [id number] [facility] 10:40:33 16:49:20 Visit AMBULATOR 350.1.13.21 College Y 0.2.7.2.686 of [id number] [facility] camelia 800 e 2022-02-13 2022-02-13 Office LUCERO [facility] 1.2.840.114 [id number] [facility] 14:19:03 15:24:21 Visit SANTIAGO MARTINEZ AMBULATOR 350.1.13.21 College Y 0.2.7.2.686 of [id number] [facility] camelia 805 e 2022-02-01 2022-02-01 Office Alyse De Leon [facility] 1.2.840.114 [id number] Univers 09:40:00 10:00:00 Visit MULTISPEC 350.1.13.10 ity of [place] 4.2.7.2.686 [facility] [id number] [facility] AND [address] [facility] 2022-02-01 2022-02-01 Outpatient ALYSE NULL [facility] [id number] Univers 09:40:00 09:40:00 BEATRIZ DE LEONAH milo y of [facility] 2022-01-29 2022-01-30 [facility] JORY Barker [facility] [id number] 05:35:00 18:49:00 Encounter Santiago martinez [facility] 2022-01-29 2022-01-30 Outpatient JORY BARKER [facility] [id number] [facility] 05:35:00 18:49:00 SANTIAGO MARTINEZ 2022-01-29 2022-01-29 Outpatient [facility] [id number] [facility] 05:35:00 23:59:00 Sawyer 2022-01-29 2022-01-29 Surgery LesleyHartmanwinnie [facility] [id number] 08:00:00 10:20:00 Santiago martinez [facility] 2022-01-29 2022-01-29 Anesthesia Blanca Holland [facility] [id number] [facility] 07:44:00 10:18:00 Event Christian Simpson [facility] 2022-01-19 2022-01-19 Outpatient [facility] [id number] SLE 15:49:26 23:59:00 2022-01-19 2022-01-19 [facility] [id number] 14:50:00 23:59:[address] [facility] 2022-01-19 2022-01-19 Travel [facility] [id number] [facility] 00:00:00 00:00:00 [facility] 2022-01-18 2022-01-18 Office Lucero [facility] 1.2.840.114 [id number] [facility] 13:30:00 15:17:21 Visit Santiago martinez AMBULATOR 350.1.13.21 College G Y 0.2.7.2.686 of [id number] [facility] camelia 805 e 2022-01-12 2022-01-12 Office SHREYAS Watts 1.2.840.114 [id number] [facility] 11:00:00 12:00:00 Visit Erin AMBULATOR 350.1.13.21 College Y 0.2.7.2.686 [id number] Medi camelia 810 e 2022-01-24 2022-01-01 Outpatient JORY BARKER SLEJanie [facility] [id number] [facility] 17:22:14 23:59:00 SANTIAGO MARTINEZ 2022-01-01 2022-01-01 [facility] Lucero [facility] [id number] 12:30:00 23:59:00 Encounter Santiago martinez lokesh [facility] 2022-01-01 2022-01-01 [facility] [id number] 00:00:00 00:00:00 Only [facility] 2021-12-31 2021-12-31 Urgent [facility] 1.2.840.114 [id number] Univers 10:20:00 10:40:00 Care [facility] 350.1.13.10 marito frank [place] 4.2.7.2.686 Justino as YOLIE?BLEA [phone] [address] MEDICAL OFFICE BUILDING 2021-12-31 2021-12-[address] [facility] [id number] Univers 10:20:00 10:20:00 NATALIA devi o [facility] 2021-12-29 2021-12-29 [facility] [id number] 11:00:00 11:00:[address] [facility] 2021-12-29 2021-12-29 Outpatient JORY SLE [facility] [id number] [facility] 00:00:00 00:00:00 2021-12-14 2021-12-14 Outpatient SHREYAS ORTIZ [facility] [id number] [facility] 11:29:41 11:40:44 AHMET ac of Medicin e 2021-12-07 2021-12-07 Outpatient SALVADOR [facility] [id number] [facility] 08:52:56 09:00:33 Fahad DAVISON of Medicin e 2021-11-23 2021-11-23 Outpatient LUCERO [facility] [id number] [facility] 08:40:22 08:51:19 SANTIAGO MARTINEZ of Medicin e 2021-11-22 2021-11-22 Outpatient Joesph DE LEON ALYSE [facility] [id number] Univers 09:00:00 09:28:44 DE LEONALYSE milo rowan [facility] 2021-11-22 2021-11-22 Office Alyse De Leon [facility] 1.2.840.114 [id number] [facility] 09:00:00 09:28:44 Visit JUAN 350.1.13.10 ity of [place] 4.2.7.2.686 [facility] [id number] [address] [facility] 2021-11-15 2021-11-15 Outpatient SHREYAS WATTS [facility] [id number] [facility] 13:57:27 14:19:44 ERIN Rowan e of Medicin e 2021-10-19 2021-10-19 Outpatient DEYA [facility] [id number] [facility] 11:31:33 12:09:18 ERIN Rowan e of Medicin e 2021-10-09 2021-10-09 Outpatient DICLEMENTE_ MEHOP [facility] 971 [place] 11:47:00 11:47:00 DEMARCUS Jaeger [facility] h Program 2021-09-12 2021-09-12 Outpatient SHREYAS WATTS [facility] [id number] [facility] 15:12:26 15:27:17 ERIN ac of Medicin e 2021-09-06 2021-09-06 Outpatient Joesph ALONSO [facility] [id number] Univers 09:45:00 09:45:00 DEMARCUS devi [facility] 2021-08-22 2021-08-22 Telephone Spike [facility] [id number] [id number] [facility] 00:00:00 00:00:00 Kirti MARTINEZ 350.1.13.10 ity of [place] 4.2.7.2.686 [facility] [id number] [address] [facility] 2021-08-11 2021-08-11 Telephone Spike AKYSABEL [id number] [id number] Univers 00:00:00 00:00:00 Kirti MARTINEZ 350.1.13.10 [id number] [address] [facility] 2021-08-09 2021-08-09 [facility] [id number] [id number] Univers 00:00:00 00:00:00 Kirti ROMEPEC 350.1.13.10 [place] [id number] [address] [facility] 2021-07-12 2021-07-12 Office SpikeKirti jones [facility] 1.2.840.11 [id number] [facility] 10:45:00 11:31:54 Visit Demarcus Alonso 350.1.1 3.10 ity of [place] 4.2.7.2.686 [facility] [id number] [address] [facility] 2021-07-12 2021-07-12 Outpatient Joesph ALONSO [facility] [id number] Univers 10:45:00 11:31:54 DEMARCUS devi [facility] 2021-07-12 2021-07-12 Outpatient Joesph ALONSO [facility] [id number] Univers 10:45:00 10:45:00 DEMARCUS devi [facility] 2021-07-06 2021-07-06 Outpatient [facility]OR [facility] [id number] [address] [place] [address] 11:42:30 11:51:21 Fahad DAVISON Medicin e 2021-06-19 2021-06-19 [facility] [id number] [id number] Univers 00:00:00 00:00:00 Addy Pink MULTISPEC 350.1.13.10 [place] [id number] [address] [facility] 2021-06-14 2021-06-14 Outpatient JORY FRANCO [facility] [id number] SLE 20:01:31 23:59:00 AMADEO DAVISON 2021-06-14 2021-06-14 Hospital Franco [facility] [id number] 19:00:00 23:59:00 Encounter Wayne Davison [facility] 2021-06-09 2021-06-09 [facility] [id number] Co mmon 00:00:00 00:00:00 VISIT Juliano ESTAB PT - CHI LEVEL 1 [facility] 2021-06-07 2021-06-07 Office SHREYAS OLMOS 1.2.840.114 [id number] [facility] 10:35:18 17:02:46 Visit IVORY AMBULATOR 350.1.13.21 College Y 0.2.7.2.686 of [id number] [facility] 800 e 2021-05-31 2021-05-31 Outpatient Joesph ALONSO [facility] [id number] Univers 10:30:00 10:30:00 DEMARCUS devi [facility] 2021-05-26 2021-05-26 Outside [facility] [id number] 00:00:00 00:00:00 [facility]26 2021-05-26 (TEL[facility] [id number] Co mmon 00:00:00 00:00:00 Spirit - [facility] 2021-05-22 2021-05-22 Outpatient [facility] [id number] [facility] 08:16:41 08:22:26 Fahad DAVISON of Medicin e 2021-05-10 2021-05-10 Office SHREYAS SYKES 1.2.840.114 [id number] [facility] 13:41:07 15:22:22 Visit GENEVIEVE AMBULATOR 350.1.13.21 College Y 0.2.7.2.686 of [id number] [facility] camelia 800 e 2021-05-04 2021-05-04 Office SHREYAS Watts 1.2.840.114 [id number] [facility] 14:30:00 15:30:00 Visit Erin AMBULATOR 350.1.13.21 College Y 0.2.7.2.686 of [id number] [facility] camelia 810 e 2021-04-10 2021-04-10 OFFICE STLMLC STLMLC [id number] Co mmon 00:00:00 00:00:00 VISIT EST Spir it PT LEVEL 3 - [facility] 2021-03-22 2021-03-22 (TEL) STLMLC STLMLC [id number] Co mmon 00:00:00 00:00:00 Spirit - [facility] 2021-03-22 2021-03-22 OFFICE STLMLC STLMLC [id number] Co mmon 00:00:00 00:00:00 VISIT EST Spir it PT LEVEL 3 - [facility] 2021-03-16 2021-03-16 Office Lucero [facility] 1.2.840.114 [id number] [facility] 15:00:00 15:39:36 Visit es, Santiago AMBULATOR 350.1.13.21 College G Y 0.2.7.2.686 of [id number] [facility] camelia 805 e 2021-02-21 2021-02-21 Joseph IHDE_[place] [id number] [place] 00:00:00 00:00:00 Demarcus Santiago 1130 misti Duran MD: Medical Medica [address], [place] [address] , Ph. [phone] 2021-02-07 2021-02-07 [place] [id number] [place] 04:59:00 04:59:00 1116 [facility] 2021-01-23 2021-01-23 Outpatient IHDE_G MMG MMG [id number] [place] 10:25:00 10:25:00 1101 [facility] Group 2021-01-17 2021-01-17 Joseph IHDE_[place] - [id number] [place] 00:00:00 00:00:00 Demarcus Olguin MD: Medical [facility] [address], [place] [address] , Ph. [phone] 2020-12-28 2020-12-28 Outpatient IHDE_G MMG [facility] [id number] [place] 09:33:00 09:33:00 1006 misti [facility] 2020-12-27 2020-12-27 Joseph IHDE_[place] MM[place] - [id number] [place] 00:00:00 00:00:00 Demarcus Olguin MD: Medical Medica [address], surgery [place] [address] , Ph. [phone] 2020-11-16 2020-11-16 Outpatient IHDE_G MMG [facility] [id number] [place] 05:51:00 05:51:00 0825 Medical Group 2020-11-15 2020-11-15 Joseph IHDE_[place] MM[place] - [id number] [place] 00:00:00 00:00:00 Demarcus Santiago 08Jen Olguin MD: Medical [facility]ica [address], [place] [address] , Ph. [phone] 2020-11-10 2020-11-10 Outpatient IHDE_G MMG [facility] [id number] [place] 12:12:00 12:12:00 0819 Medical Group 2020-11-09 2020-11-09 Hospital Brando Ibrahim [facility] [id number] [facility] 12:00:00 23:59:00 Encounter [facility] 2020-11-09 2020-11-09 Outpatient PATRICEBRANDO [facility] [id number] [facility] 12:36:38 14:54:20 Colleg yashira of Medicin e 2020-11-09 2020-11-09 Outpatient PATRICE BRANDO [facility] [id number] [facility] 00:00:00 00:00:00 2020-11-08 2020-11-08 Outside Brando Ibrahim [facility] [id number] [facility] 00:00:00 00:00:00 [facility] 2020-11-01 2020-11-01 [facility]phone [facility] [id number] Univers 00:00:00 00:00:00 Addy MARTINEZ 350.1.13.10 [place] [id number] [address] [facility] 2020-10-24 2020-10-24 Office [facility] 1.2.840.114 [id number] Univers 10:18:55 10:48:54 Visit Addy ROMEPEC 350.1.13.10 it[place] [id number] [address] [facility] 2020-10-24 2020-10-24 [facility] [id number] [facility] 10:30:00 10:30:00 ADDY devi [facility] 2020-08-02 2020-08-02 Telephone [facility] 1.2.840.114 [id number] Univers 00:00:00 00:00:00 [facility] 350.1.13.10 i ty of CLINICS 4.2.7.2.686 [facility] [id number] [address] 2020-08-02 2020-08-02 Telephone [facility] 1.2.840.114 [id number] 00:00:00 00:00:00 [facility] 350.1.13.10 CLINICS 4.2.7.2.686 [id number] [facility] 2020-07-18 2020-07-18 Office [facility] 1.2.840.114 [id number] Univers 10:54:04 11:57:47 Visit Addy MARTINEZ 350.1.13.10 [place] [id number] [address] [facility] 2020-07-18 2020-07-18 Office [facility] 1.2.840.114 [id number] 23 10:54:04 11:57:47 Visit Addy R MULTISPEC 350.1.13.10 [place]2.7.2.686 [place] [id number] [place] [address] [facility] 2020-07-18 2020-07-18 Outpatient R JANIS [facility] [id number] Univers 11:00:00 11:00:00 ADDY devi [facility] 2020-07-13 2020-07-13 Telephone [facility] [id number] [facility] 00:00:00 00:00:00 Addy Pink MULTISPEC 350.1.13.10 it[place] [id number] [facility] AND [address] [facility] 2020-07-13 2020-07-13 Telephone Janis [facility] [id number] [id number] 00:00:00 00:00:00 Addy ROMEPEC 350.1.13.10 [place]2.7.2.686 [place] [id number] [place] [address] [facility] 2020-05-19 2020-05-19 Office Patrice, Brando BCM 1.2.840.114 [id number] [facility] 13:48:40 16:45:35 Visit AMBULATOR 350.1.13.21 College Y 0.2.7.2.686 of [id number] [facility] 380 e 2020-05-19 2020-05-19 Office Patrice Brando BCM 1.2.840.114 [id number] 13:48:40 16:45:35 Visit AMBULATOR 350.1.13.21 Y 0.2.7.2.686 [id number] 2020-05-19 2020-05-19 Office Mile Brown [facility] 1.2.840.11 [id number] [facility] 09:41:56 10:07:30 Visit Josi Rg MULTISPEC 350.1.13.10 [place] [id number] [facility] AND [address] [facility] 2020-05-19 2020-05-19 Outpatient JOSI ALDRICH [facility] [id number] [facility] 09:45:00 09:45:00 ity of [facility] 2019-10-02 2019-10-02 Outpatient [facility] [id number] Common 14:00:00 14:00:[address] [facility] 2019-10-01 2019-10-01 Outpatient [facility] [id number] Common 09:40:00 09:40:[address] [facility] 2019-09-28 2019-09-28 Outpatient [facility] [id number] Common 14:29:00 14:29:[address] [facility] 2019-06-22 2019-06-22 Outpatient [facility] [id number] Common 11:00:00 11:00:00 t [facility] [address] [facility] 2019-06-19 2019-06-19 Outpatient [facility] [id number] Common 14:01:00 14:01:[address] [facility] 2019-04-08 2019-04-08 Office Viral Marie [facility] 1.2 .840.114 [id number] Univers 10:00:07 10:10:07 Visit Demarcus Alonso MULTISPEC 350.1.1 3.10 ity of [place] 4.2.7.2.686 [id number] [facility] AND [place] [address] [facility] 2019-04-08 2019-04-08 Orders Doctor CHRISTIAN 1.2.840.114 [id number] Univers 00:00:00 00:00:00 Only Unassigned, AZUCENA 350.1.13.10 ity of [place] [facility] 4.2.7.2.686 Justino [id number] [facility] [address] 2019-04-07 2019-04-07 Outpatient [facility] [id number] Common 11:00:00 11:00:00 t [facility] [address] [facility] Results Test Description Test Time Test Comments Results Result Comments Source POCT MOLECULAR STREP 2022-05-16 01:36:38 Test Item Value Reference Range Interpretation Comme nts POCT Molecular Strep (test code = 82904-6) Negative Negative Lab Interpretation (test code = 56899-7) Normal [facility] [id number] 01:28:00 Test Item Value Reference Range Interpretation Comments POCT PREG (test code = 1605) Negative On board controls acceptable with C Yes Line (test code = 3574) POCT PREG LOT # (test code = 3575) POCT PREG TEST DATE (test code = 3576) Lab Interpretation (test code = Normal 46083-7) [facility] URINALYSIS W SPECIFIC [id number] 01:12:00 Test Item Value Reference Range Interpretation Comments POCT U SP GRAV (test code = 1.025 mg/dl 1.005-1.025 3255) POCT PH U (test code = 3254) 5 mg/dl 5-8 POCT U LEUK EST (test code = neg Negative - Negative 3263) POCT U NIT (test code = 3262) neg Negative - Negative POCT U PROT (test code = trace Negative - Negative 3259) POCT U GLU (test code = 3256) nomr Negative - Negative POCT U KETONE (test code = small Negative - Negative 3258) POCT U UROBILI (test code = neg 0.2-1 3260) POCT U BILI (test code = neg Negative - Negative 3261) POCT U BLD (test code = 3257) neg Negative - Negative POCT U COLOR (test code = yellow 3266) POCT U APPEAR (test code = clear 7) Lab Interpretation (test code Normal = 05296-2) [facility] [id number] 08:40:04 Test Item Value Reference Range Interpretation Comments Case Report (test code Surgical Pathology = 104) Report Case: [id number] Authorizing Provider: Santiago Jones Collected: 04/23/2022 08:00 AM MD Jose Ordering Location: [facility] Endoscopy Received: 04/23/2022 11:42 AM Services Pathologist: Vickie Ponce MD Specimens: A) - Biopsy, Gastric, Random gastric bx B) - Polyp, Gastric, gastric polyp DIAGNOSIS (test code = [id number] 3220) FuZzEwMzNcZnRuYmpcdWMx IHtccnRmMVxlcGljOTYwMl qimaDfISYbaIMrG6Bdaxpd IKwxFJ9wPL0beYqlvLGgrH VnKKGyHkTdw5wfo204pWPz z5twFNQMbrkcrTi5xZsaX1 7xz4S6TxjvJ28pxXRcLJH9 ZNQhOOCgbJYxVBPaTAO4OY YlwCGoV6fcQFNgLQ7wasfy YOzwZRjxECUalNP0WQEhaJ NxG8IaMCQfJZorPPSyeej0 TdTxHf7qlFUnxZbeWVpmWI KsMYQmHEgjYDEpTiAoIU3m GBNPH43WF4jeGUEWNWRhBj 9UIFNQRUNJRklFRCwgQklP TGFRVCAsaup1XGPaLMCTXE PITWRTETBMZ5RmS2oTRKZG YXvYBBWYSq9SLJOqIM7UG3 RKEiHqM8QRDRFOSAzNAMwc bmUgICAgICAgICAgICAgIC 8VPXmVFDqDEMYNU8VoSCMG KJZWAuGOMDILQKTXOE0RBF YKJSCCD49VV1DHIMUFPvAU BCBLII2SQt1SSCNQA7YHCV 5CS5XHZTcufK0sJCksibAp hDelOIIUAdSxB7EDFGNADY shR1ZMYOCLYlEWU7uYRJno QklPUFNZXHBhclxmaTcyMC XsLN7RTpCRDM7LA01SKUHT BPFROG0OLVVOE34WFwmHOU 1KJUOYWFoQNN4EATMcKTnD RVJBVElPTlxwYXJcZmkwXH QmQlGwZcWROANNFiFuHx9N AEiTFIvTC2RYC7EOJaRLZI TQP81WQ6OADTNPGyVTRjZL D8RLJF0SUKSDKHfQH3krTN T3c1iypAVmDGQiiQLqAZXl MFxhbnNpXGRlZmxhbmcxMD LmOPO2hcUgNFHpATewVVFt OYiiKz0csHAocFpcIlEqRT Lfp2ycmxOBkgsxsYy2d9si DPZkWsX7fIYzQWetW3quwj NvlWGsHXMvINh9lB94FUGh gG9wfWWfNUgjqxYkKdM6PV yrJWOuNjD4LYFdhLMuNUBf Q1fvRHMrHZijOEOkLGehoB KzILQ3gSxvf4I8xQGtjUZe yLmhPeVbLsOhEjVTv7QrGM c9bOrdH1RkZYAgLkT4bYYs JZReVAvaCGTmQDRqmsK5uY 82SRprlrS0cIWvd3Xyc18z e621eU5erSVuNPA4CTFuWR IulRWiGQAkDBY4KKKczIKb N1nbFOTnPE7qziswKAumSI krLVRlrWY7GUVdpDHmY6Xk TTBdJNnpYSPtfrf8MuQwZc 0ftOYsqTylFWknx4hny1io tUCtBus5LAYsAeWoJjsiJA lkl4Hwa0jzCORkeh9dXTK4 zWBesQrey8E3mQQjWWPurB ZhZQOgIU8mpTCfURSzlH0a cmxjXHBnYnJkcmhlYWRccG vzrxFeOo8vfNtcAIO9JCjx A7fkiL2zVqF8IVelY1fkpF 1fGBz6KIffQQTvpIS4pzV6 NTGgkWPuL4ZxqT7kPNPhZV 5nvio0d9ebODX6CJceOEUr GnR8vfG2KXAtpIJmWSSbkT ghMSokc563CXA6XoPvGNLy i6EcF2EtlSbuS14epHziY7 9aYOUmuKjjeB2lpXvqrM5s EuGtKqHgRRkjvTrjFO5eDV PwT5hmwTQwHHHpTPAjJ0pe SzQovU1hkSqxXCrdfsXxTD IiUgg9JZRauTUwNQOkJfh5 RDVyPDXzN86aekkdVJV1uY 5sr8nzb5TjRXdbAQT2YLSr i34uLVazdcZ3PQzwMh95ZS hwBTN3RFuqCMY8oC== CPT Code(s) (test code a1hovCKlSEJukEZ0NcLoDW = 3355) Xln4esq3ObrSSomEXkRNxc eOWkmrGbba11iFS5oT86PX 1sNZQoDhV4PXDneqP8Bio6 XAVzJXZfuFWzY244l6wsn9 azkrYzkAH2rZneUKSvsaaa CyA9KAmaKQZrnehuDKz4UG cuKLUtaSF0IZPqnASfU3Ul GEDzCG6vqqh1KYK5VAgmDU SiLlT8EHWsnVWmPXWxiOws XWfku476UEF8KhGxAKGmxg FlwUhvaP3aTkYeWRL3DECc QWklKbP9FYG5AmynVJJ2 CLINICAL HISTORY (test s6rdoOGiEWTdnXV5DaJrVU code = 3356) Qpo6yxf7UefCMdnYGcSDmu lDAbnnInuq19dBM7aY92SW 5fLMVgAjD1EUSbscK8Oml7 XUNfBGPrjWLuG534v0uby3 dkfrWgdQE9eBrnCFKypnrn RmB5PGyoCUXwqnhuPZr9JR yyUSNdcBH8ZVScqDOqM2Hi PRQuVW1enww6EVD7TMzoRR GnHkC2WHDvcWFdJVUkzGij MYzyu862IJP7VdWePDJjkl IlpKtvfV6oNhFoBYJApYOs tUNnmLAoYE2iwMJgVHEtox Xvvg9cbRTgxdxjLWump3Xr d5Sdb4OrIGtaPQqfdoSmlZ E0BRMyd1Bio4JlhPTgmA== GROSS DESCRIPTION (test a9gatQExCVBxpHCMEFJpX3 code = [id number]) sagfIcMKUtxINdH7Wmcjcc MZrrNV3tJI4prZkgxODxuT GxMH8ZSZWdXqRcBFLujYWg vnGtCwOsRVVpoVEaaTU2IO ZpQK1uujwuPTxuVXgnOTTc chA2GCKmmINoP8RqANAfQG 0utolzBHY6KJlweH4mlgZQ EqfqTa6toBYsxTldYdQsAc NoYXJzZXQwXGZuaWwgQXJp KHm1hJ3IEbqcS48dg1X8Hg f0ZOCnTFQjX8QoTT9fGOAi nLOhW01RRzpcXSH0OPIOEj dcLOUsZC9Tr3txLEMntAZt TIS7SGjoaJEnHSJdSFBbHR z4REDmIFuxzSSbHE1gaSsi PqsydZodm7OfoHMlYIihKT BdPQObPSkyKYLnEF8ZAsQh NOO8Kqo7BfNcHBs6IZa2LC 7GAaAwNOLnXsCgLVP8JTEb LXn5NJxnAR2WYGE7IBV0Nx e5EVF4QTJbOfJjVDPqMvAl XGYgQXJpYWwgXFxmbCBcXG 1ivKcilZEbihOUOyGSbI7o y0ggKYgcb5CaxRBkSWWmcv ANClxlcGljTmVzdERvYzEg DQpcbHRycGFyXGxpbjBccm luMCANClxsdHJjaFxjZjFc ZnMyMCBSZWNlaXZlZCBpbi Bsx7PmQPtziwXoNVLqbIOp IHdpdGggdGhlIHBhdGllbn HoS2R3ibYwZI6zUXXwNBAq D1XyKVXwD22vBTMjoC3dIF SvBQ7lFDj9MSWpXVIvItja NpnowPZ7ASUuMSF5githRu QctqLiONPsVIHolQD7KY8g b43fySX5fKHlgNPiFaEcL2 0tqkFwh2YgpOg5yGLxTKaw NJEwyL5djV0aVJNlKXClbl JNRosgGYHvKOopC4IlWRVf KsWdQBxniVwqmO5wEPQfK5 5gk8AMp3NxODDyDBloi9tq vHupf7AtqICoWHmrGEZojO NkUTrdgR4jVcDvm5yuhQo0 WWguyqJ9OFOxnd5WIxppCv vetKtsc2BosKSfSAdhPGMm WJYgUBagVFUkDA7KMzMdCW X6Ofy6ZpKoUIj4GIh7UP2R NwWzIIOvWaDvVLB3GCHfYE k1AHjaRC1HLUA4RZU8Vke8 CHB1GHXiLjDeHEDrBfUaAN NvAUZtMMsqZBwzzDVdCN3m tRmveiD4HOUlIIvhHUZgKN UntPlrHLTZKBR5wgifMqmz ORXfYLqqTTIqX92pe9GTi3 IcTR8IZBq6gpHrgqaerK3r XPRjanFhFKixbCVzT1wnR4 FfDOLgEvSrRaSiBQq3EYHa hV3rRj7hzGAmzG5vtUKsPE xeQWQ6vMYkZZZiLYJyOLWp GU22KXoQNSIgofOpPBreaF VkaWNhbCByZWNvcmQgbnVt YmVyIGFuZCBcdTgyMjAgXC m4J1QqmIelZRArYCO9alvq WsAbkaEtTPOuVlWskYJ1VI 0zyC3gwYOqp0HvxEb0sYSw MYgwRVYszV0frL4rZqBgXX BhciANClxwYXIgDQpDaGVs h5UvOWcqWUMrLMLDCWEoCZ ORJDcYS7ZYSRHtJBSfneSS SggkCPIiBErlN2DdCJCeZb QaEHpfjBneqM7uBZOfD14s q7SIj4EwUHTmFOxsc4vaaH qxy6RkwDJxSDeaCPTjtDGr UUfeaZ5mYzTkr1tnbPa6WQ kvgcQ3DGBqni1VFqthdE6u LiLsr7vgzGc1GVBGVgnqhi D0n8welJqnt8FkzKWuYU9V Cn0= MICROSCOPIC DESCRIPTION x1erqYFwPIFuqVI8EsWaDS (test code = 3371) Ozd1kae5KcqRWveIWcMGah uWPegyJxob48oUA0vW76UH 4yCWMeQuT4HNZnhfH9Vmh5 XZXsKHAhvVLvJ125z6dsp6 nqekJjpKH4lLtwUDStemyu SnB1LHdaWXBkmytdCRl6EM dsINCcaOZ1UHTyiDBcF9Bb SHPzWV7wekl5RIX9XDazDH BwToO7DKTiuTJtHZTdkZqm RNwzy116XWP1MyRdEWQyud QjwNijgX1lYxTaJAVGItBK jaNtE9QftuQemP3ixEFguI U6bO7sWMGlwkWzy4CdzwGs CN2adJGniPTdbFWbWPR8f7 ZrFSQhUUJmaqOeJKetO46y ezS6CBdeAZNcUC1eZA2hAQ iqkMiks8IlV9FwmqHmiEtp znarfWgbtj1pnjdbjqsvwQ BeDNYbXEFlKM8an56wcs42 hWzuBJPjvCDaspOsj1ZpKs ereG8ytM5geRgvsM2jjOJk iQK4enpeLKZoufpaRRQhEv 5rBq9ka7tqihwkdNAdisQa rM9zyAVduIK9uW6tZHXzpc Fla5MmhpLyNS1bqXAbyDFz rXPbCEJ5p1ZbJDOlSSUzrw BtPHzwM40gprG7RQltVQEf TA7vIQ8kOGqscCheu3XnL0 KygeGsvNIav57fO7ZtgXKj zsDknjFng2LmqrZeqcJqo0 Q9pP9qHNX5HSvein5pWCTm ciAgIFxwYXJ9 SPECIAL STUDIES (test j6vwoLXiBTDau2cvHDOxiP code = 3376) FuZzEwMzNcZnRuYmpcdWMx DHjfotAeZIwna7AoI0EaDw AwMFxhbnNpXGRlZmxhbmcx JDUgFBW3cmUwHYXlNLjnQB SxSVkaAg9ovCXleGtcZcTz PAOtz3nkbhOZtpolcOv3r8 arHXIpOvS9yIGrABwzD4uq idKcnAApE0HhyBWbvUa4c2 ouNoDnTkR7wQIoNKdjI9xq zaBseXXbXMQhVKv9tS59NF DvgZ9ohIOmZGijefUqLzE0 SJpnJQAdCcT8ULPnjOSpIE YrI0faFNKqDIreKMAmRZsr xTFbAYZ8gRycn3J1zWHjnE YgtNuxAoDyOwIaIlDLd1Zt JHr4qLggZ6GaVJXuKaK6gP QgUGFyYWdyYXBoIEZvbnQ7 vXlusaPia41yxTYaQZNbLI RaTuDzdUkkXZNjWKBUk0Ss eXdjNEA0xFo1pJbdOzrcAZ U9Mto7AC9dce35qzl1xRoa OHOnizaaNzJ2HQreNVRrzj zmEKy0TPezVNGhpVE7HREq oTVgT3HdEFLsFB4pljl2AM P8VFkkORYxLmI2PMJfbFFl MJDcgUvlQCfrx698ZPO9Zz LiSM6xL3Nld0F7zZ7ppMJg RWPyhSCgIhSmODNlbv7raF IcVPxkx8CsBFL0hsR5sAWi oABpZHPoFX92Cdvuh4ZzGg fbn6RuG27ncLM4WDvar1oo UV2cWeU7xhMmPSoyi2skgY 1gZtH2LYnrSP0oRM7nCBEz dU0grhplVTVcMmKjgmkdUR HpcBdlksMuWa8qhTcvVMB8 GYlxC1xvvZ6vBfX0RQzpY5 olbE3dBLw8GQtukGC7UTRk iZ7jTZ8zurvjr8fdWNudMK zwFSWnefD8hhY5EIWpwXZt C1DvkV7wYEBaBI4zfdnir2 ezJIS0OLqrRHVdLDI9MlBa LDRkk1Pgzrs9JgBkz3DgaZ RlPHjyX62nk900MGClskEc H7lfvLAneookpQSflldoLD pxvgX8EAWoFUUlZHlsVJYn XGZzMjJcbGFuZzEwMzNcaG ljaFxmMVxkYmNoXGYxXGxv R5hkQzSqX0WeFSBuPzStEI fgORjzyXIflSRqrWO4iS2d VU5pYOZllWVjY6IkYTOgne MavPPrBSK3iREwpNXnFA6v KWxbmXDnx9rer1EiX7zfxN hoyZU5GY1mQGKlBHThURks d1MmuK2oPqhevJTnsqwvFE xmczIyXGxhbmcxMDMzXGhp V9plGwEoTSYocAmaQKfqk1 NoXGYxXGNmMlxmczIyXGx0 cmNoXHBhclxwYXJccGxhaW 8wZyFzAtFpLsrkLG7aQPXz L1lmvHAtKNXxLOBhQ4tbZb DmbZ2xwBcrJNaaIaUkOfHp MhPEa755gr0bWDCttEEtyl PCrZMstT9uUBseTDpxHRez mYWzAUwea1kcWCJfs8q0cK UaKVFtptCul7eoGAkgwkEv YFGfuZDdcWAfETRbx78tWL slpCjcaSjvASYoj3HseHsn u8ToUgMeVUwhf5TgB91xoM JvbCBzbGlkZXMgcnVuIGFs c83co9yiQVTvHrF8jKEgvW P8xOOavYNio8PveDawIQLa u3ipGROjfy4yacvjqMAeh8 IfkJ5xidhiYRarhKWfaoLz WQUbr7p7bVVwAKFjAIOqCA llqLr0OCXaf826ap7ncfU7 rZWnXKY9GTttCMReCUHymz UgZXZhbHVhdGVkXHBsYWlu XGYxXGZzMjJcbGFuZzEwMz NcaGljaFxmMVxkYmNoXGYx EJmyS4jwVrChE8SuYDEtWn ZbaTUyD0hgaDLpVZXaFGgd XGYxXGZzMjJcbGFuZzEwMz NcaGljaFxmMVxkYmNoXGYx DWypM2xaTtOnB9SqCXGjFg IgIFxwbGFpblxmMVxmczIy BQrgtyiyOHDpIGlvW5pyYq IqSNEkqLrmLAmbq1ZnTXJt DVNjWqmmrgGtSYl6dhYoTK BhclxwbGFpblxmMVxmczIy LVlgtlwiRCEiQBszI2apKa XaIRFunIrgSAxjk2NqTRQz XGNmMlxmczIyIEltbXVub2 wet3YwV9ljpBhzeZY8BVKc W2hpkMHohBX0WDW4uQ5tOF oaabErKCPet6DvWMOoAUZf InO7vX1eWGD6XzHCoBqbVN BsYWluXGYxXGZzMjJcbGFu ZzEwMzNcaGljaFxmMVxkYm KfPTTvWJicQ8upHkDbT7Gf SDQzEzHtsOneBIgqFYz1Hh xwbGFpblxmMVxmczIyXGxh sygnVKKzOExyJ1dwPlDoKR BnuWbuDLfrl2QeADAlKLZr MlxmczIyIHMgTWVkaWNhbC VFBJ55KGHgVZRnuJztjM6y jRZLLYSjlbZ9d4J5FUniZA UoGEd7CBruwgNxCMSmeV5a AFEiMH6wHMp3zqBeKKJjy1 OcKC3zNEWgkLXvKTS6RJUi i5BjQ8Mof6ZxDRQmCTMykx 3rmjHiWyHCeFMhHFXmyi43 MPApKV1rQ0xtATWnXAQzax RqoCUgm0NaKXTxyCO0qXIk DE6ZLhQLb36nFTStCXYYak HoHHUzkQoccOF2ccD2wB7n LiBUaGUgRkRBIGhhcyBkZX Kopq7ahwPxFYBlCZVcv2Fp uJDpaSOvykWgB9Gms1IaEL Fdkn95EPoylDSsqj21HE3o H6Lrn3SpjK0jFDjiGPCcd7 JgbBJgqFOeAABpv3BxI0xt dqcgUMeudXApmV5nBWGwQO f5UIIld3SfFXDlx4XrTzVe jgRfGGKkIDEdGPJinA19DN X8bItfkOydsqZrYC8cTKZl wzHqLCDlLQDkiD7wVFwmdq SxYBJuklH4v2L4LKfvDPQq lkPyRovyMKO1vvMzmoN8jG TdI5bnhvmcVOozUEGcr5Wm rO6tyODRdAOrd2ZwnSXiwE RIsFSwPW0iknXuWW7oCPB7 ODggKENMSUEtODgpIGFzIH Z6EUslEwyoMVO0noCxABEf k1XiFDfeK6tuL88laWkknU l6xPZkyGlfpXMchVWoIUAa wvM3s8K1TTBfc1JcanxkNB BsYWluXGYyXGZzMjJcbGFu ZzEwMzNcaGljaFxmMlxkYm PpGPZsQIecA2szTvAbXtNw HnixJMY8pL== Gross assessment was [facility] performed at ([facility], = 2777) Department of Pathology, [address] [place] [id number], Technical component was [facility] performed at ([facility], = 2778) Department of Pathology, [address] [place] [phone], Professional component [facility] was performed at ([facility], code = 2779) Department of Pathology, [address] [place] [address], [facility] [id number] 08:40:04 Test Item Value Reference Range Interpretation Comments Case Report (test code Surgical Pathology = 104) Report Case: [id number] Authorizing Provider: Santiago Jones Collected: 04/23/2022 08:00 AM MD Jose Ordering Location: [facility] Endoscopy Received: 04/23/2022 11:42 AM Services Pathologist: Vickie Ponce MD Specimens: A) - Biopsy, Gastric, Random gastric bx B) - Polyp, Gastric, gastric polyp DIAGNOSIS (test code = [id number] 3220) FuZzEwMzNcZnRuYmpcdWMx IHtccnRmMVxlcGljOTYwMl trbrPpRTRxrEPzQ1Svumjf WWmoJF3iHA2rdXftyOHveB YfQQEtDnFrf5jbc709eHYl o4yhWDBNqalupJe7wYxcX3 4wm9K0EytsA09ifDTiDPH8 GWVxJSZerSYsYOEgGJD3NO KjhFVqP8vwPPTmLC7dgzno CVwhQBkrNLFgbRN0RPBawL AwV1SmZWXhQMpvUVWamij4 SpPqOm2pvOKpzPhePZnnST WfHABfXJrhAAYuAcEiJI7h BLWOJ29HM1sgXVVWGVUaWr 9UIFNQRUNJRklFRCwgQklP GRMEPPPlvpx5JIAxOFKVNV MHHBXVGDXIT7LrM4yYDFHD FShKBXUNUi0ZJEDhPO1VE0 JPCkGdI7YGRNFKIIkLSDcn bmUgICAgICAgICAgICAgIC 1LKJiXQGtHZVJOW1NxUSIZ YFNEPyGAZEPVKQWFSI9MKM SLNHWMM51HU3ZXEHGISuND XWAPLE8LCu8PEKXSJ8SVUT 1EF0FYFKtxzI9aQTaocpYh cFadTUBPJjRcE0LUJPTTJA gwF5XYNPUPDiDJT1pWMUrt QklPUFNZXHBhclxmaTcyMC MgJO2ZBeBAMZ6GI01ORAIJ OMTOSN7CHZVFT49UFnbWZQ 1NFJVUESnVXW4HRJBtOAvX RVJBVElPTlxwYXJcZmkwXH AcBbZdFlHWWQJCQvGmWu1B PPjMYMpUV7TIX2WPFlXIPO YSH38JY5HEFKDHEpXORqYO L5DBOM9SQFAHJNlBE7vrGV D7z4zasXErFMGziVJwSCWk MFxhbnNpXGRlZmxhbmcxMD WeSYE3rvCyAFEgXCtuBSRc AKzoQm4kqYItiHhdMzKnHT Omi5youzCCkjyfkFz0b7ab JPHsSeQ7sTPjKGrbG1ksej YymIPbAZXgKBe8pB09PHJd aU6dsFTaHOogxbVaCmW3NG qoQASpDqB5WTJnkYIdCZMg X8snNQIvHCuwFGXoFAqypM IpUVE3hNfwb9Q5rADvxYBk iNunPhEsUxBkQqVLt7VtWD t5wOsdH6KvFDWlOpE9gHVx PJMcSNwdTHGyYVGtcfC6eS 57ZTfttcQ2kQCgq0Zdt44h g421uY4ouGLxCRO9FQVzKE DxtXZeNISxHNZ2KVTrsFWj U6noLELaGP6mqrtiLMjePV lbUVAzvRG4ZDIejKPvS4Np NZWoHPzwLIWibzv8MhUfAv 8xmAEokEhcOGjrm9huh1ob oXOgHcr1ZDCbRyFfJtjqSF nsa9Hoy5klXBUtbm0xZDZ4 zWKpsXhnh3S6oQCjDWIhyZ ZyZCXvTM8gqKVfSPVqaJ4k cmxjXHBnYnJkcmhlYWRccG nkrpJdGo6gcKaiJGO2RWae W5jduC1sIsJ4GGzpR0yspB 8qTWi7EOktSJZthUM2bdM5 NBVtiBQrI1HodZ0zZVGsDJ 2aifm8d3mxBWO2NMguSEUy LjN3jcH1IGJhnRZrXQYnxE kmYMvmo677BAW7DsXsOTXe q1BaC3TswIpcY07xuJtnJ7 1dVXOfzHzgkB1ydKkxaT0r CpKaOpKxEXvtrFhdUL3lCQ LfO0vsqYDrTVNdUTPaA1lw QoBgwS2rbMqvRCtioqPsYO YuNqy3AAPmkUSeRCMvSnu5 ZPBhVITbT53ewedgCEZ3jU 1ky0onv4StICcrKEH6ESZl h02cUPjnroQ8FWsoCn32IL nwNGT7AKtxDML5kY== CPT Code(s) (test code x3vklCHdPHOryRA1ZaMvSQ = 3357) Zra9wyv4OsmMOegOQgVGea rZKrbdVkmi70zFO1wX26XQ 9yTPBwOeL9OYEvvbA7Sqr2 PUWdODMrsENhI166f0hse8 ulpmCxuEA8oLigEFUwojvu AeL7GMgzDZXsgttbSIo7BK muOSHpwIZ0LOAuiVLkB8Ij KOAkGE9fzlx8OPJ4KWqyQG SqSgX3DEUtcCQvQZIdpPnf GTeff084UWH9UfPuYUSmxu FvcEygkO9pLpRiANB2RSIy ZLdaIzL3YUQ6WvcyPDJ2 CLINICAL HISTORY (test c6pgbHAbKBNuhAM7ZvYwXI code = 3356) Owm0thr4ChmEUauOSaPSsi cZNlfnXkuz25mKV2gV29TF 7kXBGoYiY4FJIrbzU9Hps7 VPYvOOMzmNZqW355p5bhu5 uzwyLvjDN8jCszWUWmwobz EyD6BPtoHHUjjwszKIg0JN ooSHCluUK6NEJloANoE0Ma EDXmCY2eafa7WWC0GLwsLU IrRzP1LYAufEHsZRPivJmn XOqwi940QKS9VlHeZRNnlb BweTdzgQ9iYiXbUDNWoJCw uIKpkGWtFT4eiLVmAONxnr Jfor5zqXRancwfHFazz2Fe r1Pqg4FyICkySFbwomGxxB X5TFOfx6Yjw1QgqVAnxZ== GROSS DESCRIPTION (test p0gydZUsCFMebMDHGQVzY7 code = [id number]) hdbpGfTVLuiTMdU0Fpvzel MHaaHT3zYO8ozQoymUDwmV GrJD9CJGPyJjQaKBCqwVSl sfKrFiCsUIGxyHRxgIY7YU IaXZ8fumkkJQszIYxbOAWs skQ6EBXphUTrJ7KnVOBwNT 5sdlivCIP4ZCdtwG4bqoWY WnxlRk2dlSXdfIygMbFgEr NoYXJzZXQwXGZuaWwgQXJp AFw0qJ9NVhcbL94dn8J4Tk y9IAXpMNXhV5SaSM9uKTUb fKSoT18IOqwrLCK6YTVLVm znDPWdVR6Ar5ujVXYesHYo IVN8DRacqNJoOFCoRWIaIN o7VQMeYAxlgLQqEN1exOgb LgkzhKnwb2JwtVVfJNprRR VnAIXfVAydIEXiLQ4YFdFk AQS0Yjf5RlZnGIa4SDo3LK 3UHxNoKIGjKzUsVIC6SCHq BAt8LKyrBM2QLHF1ICH8Ea r0XET5FFRaZkIoARHbDwXj XGYgQXJpYWwgXFxmbCBcXG 6dgKvizBIeggKUAsHEpF2s l5ncXRqvy2LayPSvNXPddj ANClxlcGljTmVzdERvYzEg DQpcbHRycGFyXGxpbjBccm luMCANClxsdHJjaFxjZjFc ZnMyMCBSZWNlaXZlZCBpbi Qkj6RyNDauniBlBEPifIWp IHdpdGggdGhlIHBhdGllbn ZmI1J7smDgPS5hZOVoAAFj K0HlZPYxP87oRUIxeW5wHC IwTM8gVPq1KPSwCOUpArut XzinaSU8PCNpRRU5tjerXf EtbqWxPYDeZDEseMR9JA6d z86ilKS9dMKlrYWzPwAhL7 9pjmFsd8NmsPg5nFSqTKte KOKdmH3mdN5mZXBtBYMhis OBCnpeGHChZDqtD4ZtSFSh AfOkREuxtKrjnS4wZRSxH8 0gh8ZFu6CwMHOjRAhyk5yb wGatb6VsjVXfPBfhUQBdqH BaJKkvyH6vFpUwu3luzSe5 UKrjomJ1MUSbvc2EIzxxPm tryJrfy9KpiKEuQRewUHHc PBVmWRibULLgWQ5XVkFdGG A8Igw4KsZsVYm7JJc0XJ1R KsEbSHUiWkHxDXT0FOUzXP t1TJyyMD6TYWS8TKA2Gxi0 SEA6LZUlHqZiJCXqHxVjNQ TcVLLkMYjuZWxdlYKoSK0i hVzxqsG6OZByPEkgECMwXR BzvSahPOGQYQZ3hrueUkwd GRJoGIjoGXVtS58yy8EHj9 YsWU4XJJw5ubZolzjtjL2b XOQwdlCdEHgumMJyW9yrC4 SpXHRqDnDsMdUhLMa3HFQh mY6hGe6frYQzrC1jgXAvMV mkWOC4cKEsDTXlNPHqPCFx CF00NScWJTRilaWoOZeoxL VkaWNhbCByZWNvcmQgbnVt YmVyIGFuZCBcdTgyMjAgXC g1M9ZngDspRFWsHZI0pkek JbMjgsExOKPdVfFmbCM8PF 0cmT0bcSMxe9OgfPi5qQWz OActWZZquN0nrS6rEbDlED BhciANClxwYXIgDQpDaGVs g7SwYGhbXXAqXGRPWDMkCR FQJSjFC4GFPLJbMCAyefXK VfxgLIFmBNveB3OcBFZiSb PnPIthaWrldK9lLYFuK76h c0BGq6HaDPZfOPduq2xptT ysm3MvuXXoGQfgICXboFOd SRsajF5kTmXik3kuiWu7TO eendK8QPTpdc4XUtrhbB7r KgLij7oriGu9MIYBQybaaq E7f6zwfZatf4YepZPrAQ2T Cn0= MICROSCOPIC DESCRIPTION r8zdmGUrSAWopNN3VvNfFY (test code = 3371) Rrj9ble3UayPIdnSAwZKyx gLStluImkk10xYR4dE33GC 8qYZXiNbL9GLZkxmE7Wgn9 FUTcWYAdpJMmR547h8lmj6 psmuYdgJO3hCjaPAPfbphj TwK7GYqiIPQvydheCZp8JO nmSUKxrRD6ONPuoFNbO5Be ELNnGU1qhwn2YZN3JBreNU OcArF3EMRgiSWdATEvcIwl CUgaw896XRT2DcMsZOErke HanPrhlX4tQtNmKSVDVxYB mwUiX7WojsXnaF1zpNKepB K4aW8gZLXitwIsz1OhsnOl QV3pnBWwxPDoiDUpXXN5e1 UcCNYeYIYmakSqTFmvK21s piV5SFlrIPYfFD5oTR4aDS tecPoaj9YjZ0HgfuIdzDri kzsmoPizaw7bgozskxefjT LmRYBrRXGlNV6kd54hxp83 uHxlGIOooJEhptWbk3XkTn pqeU1fwU4evVkqdR7uoZDe kPK6ycwdSDQekfgnRWOlYb 5bMn8cd6qpporufVJhceAz gT9nbVEcnQX2qU2nORNeyd Htx7TdtxWuMD6zsRDgkYOe nNEoPXH5o6TfXZXgCZEewz QqXEiyZ46noeN7BJuiNGNk ND7oRC4eNUbmcQbkc8OkE8 IqapWvhHAjx11cD9BikXSb dqXlsyPhn0WquyGjbiSxt8 P1jH0sCXH8MHtqkq2eZZMi ciAgIFxwYXJ9 SPECIAL STUDIES (test j5wgpUBpELTxn6utZQZjhF code = 3376) FuZzEwMzNcZnRuYmpcdWMx KRxicuTvPZjzp1NtK1PnOo AwMFxhbnNpXGRlZmxhbmcx NSAoDNG6ulPtZXNrXXryIE LeGXqyWm1baOBssMycFvMf NTNse6rqymHWbqgxmYy6z0 kmBTAaGrG7rSIiWEgsI6ou ywBxcWUuB3KbqMGbtOt3g6 isKrIzSsS4yJQhGPrvM1nj mbNtjIDhFNVoBNn4iW41NF ImfX0tmRPaNEpsorPoEtK4 YDduWNZzVmA2BEYzuMAaIG AeY4woCVFpVXmmTXYtICcx fCUbQGU1mVmua4A2rGSwrM CpvRuyQnCyOsQgDmBGc7Jr UXf0bIhqL6HaDJDmKqS9sQ QgUGFyYWdyYXBoIEZvbnQ7 pLfvheFmn59tmGLhVWMyRJ XfUyPtiCoxQYIhCOYRv8Ef iOplPZN2vQy3pTubYkpfZS F0Tal4PB5htf36iul6tUsz MKWmutajLyE5EDigBWZupl fbTAw2CEmxWDHelKF2LOKt oSKzR2FzRYFtMJ3cqtu7UR S6YZwkMACyTjK4DCLauJQb RFMbdYiuPDjno596YUF7Qs KgZH4mR5Kra5B9zL0ooEIt CSRjrFIdZzIaRKDads2gmP AyTGaor2TcIDG0heP0xAGf rDKmDZPuHJ66Mjspw9LdLq paw2BsA78ceVS1UXugw2vn LZ8tKdG8zdCiSOejz3aheX 6fXcO7HOxhFS2dWV5aSZBe lZ4cocatADKwMxLugybhDU PwhNvpetMrZr6ctKatVKN6 UOfyD3slyV6wHnG4ERvoY4 ecqA4rZMv7ZJeenBT2BKXm rM3vIR0lvfmdf1mhXWooDR qeRJLrlaN3reT5BJMwnNYa M6UruP3qPOPgVP1rvxpex0 wnJPO5TNgqVEKiFFX7JcCo SXVew3Izoxf1JrFxj1FpkU XmVMchR75nr902FOJlzsVt L5tepAAkmkbonPRdjvccZD sifnB8VFGhEOGcQElzCLYm XGZzMjJcbGFuZzEwMzNcaG ljaFxmMVxkYmNoXGYxXGxv O5cgYgNyF8ZkGMLuVhWhDQ ogXXwvxNBlrLJvtCJ0vA9j RY7bEBByxUVzQ8LpXIJilu BbsXJtXYV9nMBqaADtWG6g GNtkiEPbp8cum0KnR0aexW nvcOF7EM0jJNLcFETfEMef t3PdzI3iAelqrXXquejiJT xmczIyXGxhbmcxMDMzXGhp B9zuWzFyLBYjaIjmPQcgq7 NoXGYxXGNmMlxmczIyXGx0 cmNoXHBhclxwYXJccGxhaW 5yFiIxVcCfXlqiMN1jNPSr E6ataSReWMLfCOEeS0juNu BsoT8iyCptABrrDqEqOyMx PdPMn925pn3iRZFwsQHpmk MPlLWfrM6wKXoeWLrxPBrt iEFnDUqmi4yvATEyt1w7eS CqJUVeygNjb5yaZLwawwBf WINwwWXegVSbAHKpm41mDK njfGrphEmsPZCya2JlnTrl x0XbDyLmSRdww2FtP84fjO JvbCBzbGlkZXMgcnVuIGFs v56wm0xjOLRkZwI4mLOawH G4nTUckJTsa8RbuFapRLEs k0sxNMTdom9eeuwrlQNpv0 WxiZ6vnyadTHcuqMYyhrPw QNObb9a0lQGaPXNsRCWyMV updYa3CHXie025so0nlhF0 jUOxLII8ZTxnMHZlYJOwal UgZXZhbHVhdGVkXHBsYWlu XGYxXGZzMjJcbGFuZzEwMz NcaGljaFxmMVxkYmNoXGYx GDkdU6oaVtPxW7RkCDLfEn KigJBxO2ydxDKnORAhVEpm XGYxXGZzMjJcbGFuZzEwMz NcaGljaFxmMVxkYmNoXGYx VHdaF1sbXeWhY1OuZVDfOu IgIFxwbGFpblxmMVxmczIy PYrepadqUHJdDZosB1fkIb QfKYJrqXbcHRxod5VjQWSc TFOjUqictsLiCEc6ghFxYA BhclxwbGFpblxmMVxmczIy PZpfwowoOGReWTzaP7rwIu KwHUIlqObdTFadx6RuNDBy XGNmMlxmczIyIEltbXVub2 uxx4XlZ8ahsCicqHL3RWSo A6vhkIVbdLX6EVO1dF9xTM ksghIiCUJbs9VoPDZqIARt MgT9tC8lRAZ3ArDWqKdyUM BsYWluXGYxXGZzMjJcbGFu ZzEwMzNcaGljaFxmMVxkYm PfDVAhAUfvZ2vwIvVoK5Dd MZYcHiLyuYngSJbdSSh9Bn xwbGFpblxmMVxmczIyXGxh jsnjZTOcTIrpQ1bzObLmPB LtqWkwOBamt9LlNTEmRJMs MlxmczIyIHMgTWVkaWNhbC SCJE30BMTdHMTzeGqrpI3c rXWZNRFsjmX2s0U7JTbmRO AdQHy0WUojpsHwHEYakD9i SPUnFP8qBMr0hbGcNKFfy5 JfZR6fTMDhoFTpEGT3BTTe g0WcO4Cao3RcQRTmUDNeqo 4vpxWhOiDAgZEtIVEhsp54 PXIwOJ2rQ2yrGQEvSUFdzs MapZEiz0PkTDWeoOY2yXZa SW8YEtSOz43zQHAiXPOGak YcEOAtiFuoiPI5bjZ0sD1r LiBUaGUgRkRBIGhhcyBkZX Owpk7lpmHyCTZkGJNrd9Em aQGpySNuyuHxA2Tzd1MbQG Biwu36QNnvrSDjll53DY2p D3Ezm3WwcM9fAIugRJHha1 OhzNJgwZAgDAVgd9VjW4sc fxikDUcsxGYtzD8hCJRfNB j3CXWsc0ZpWNGwu0ZqWcCp igYvLXVhLSAqHPXntB36FT B8lIooqXjitwEdOI6bIEIy xaLzCEQrSXWdxS4dLZqlvl JlCWRwlbX0g6J6IXfbJJJd zzPrQnegEKF7xnPtbsO5sT CyE7botdewFLpeUNRuk1Wr lR4wkMKVtEDbn5TcgDZiaB BPcUTbRH5csuRaGS9gDSB0 ODggKENMSUEtODgpIGFzIH D6XOgbJwxrZWD9kxIaTLEq o0DbBYlsY0hmI69vcSqbdY w0kEBceUazgHCphITiZQHg fmM7w7D1PDPdo4JcahreSU BsYWluXGYyXGZzMjJcbGFu ZzEwMzNcaGljaFxmMlxkYm SnTFLnCUdcG7nhGuUsDfDs LvklUZY6rC== Gross assessment was [facility] performed at ([facility], = 2777) Department of Pathology, [address] [place] [id number], Technical component was [facility] performed at ([facility], = 2778) Department of Pathology, [address] [place] [address], Professional component [facility] was performed at ([facility], code = 2779) Department of Pathology, [address] [place] [address], [facility] [id number] 08:40:04 Test Item Value Reference Range Interpretation Comments Case Report (test code Surgical Pathology = 104) Report Case: [id number] Authorizing Provider: Santiago Jones Collected: 04/23/2022 08:00 AM MD Jose Ordering Location: [facility] Endoscopy Received: 04/23/2022 11:42 AM Services Pathologist: Vickie Ponce MD Specimens: A) - Biopsy, Gastric, Random gastric bx B) - Polyp, Gastric, gastric polyp DIAGNOSIS (test code = [id number] 3220) FuZzEwMzNcZnRuYmpcdWMx IHtccnRmMVxlcGljOTYwMl ebkvOjUKGisTBgJ7Audgbo DMszZT9tBS0gbBtixCZcsE VsXXEtVkZiq1bsl065nBBu s3twETFItjxwhJj0qQfsT2 8ho6K9KhqlA08hrEBsUEP5 LWNiIKOcgMKcRGPaNBW6NL HyzZGcI1smTKOkWN8lmejk LGgqFFmlOARmfVI3IRCxnX HyC2DeLHCtTGwzCIUaglm8 BjIzJv6wqBLwxVizYNrrWS EnMMQzXObxMRGuLmEtFE2o KJDUQ49HX5mjUXPQGCDeWm 9UIFNQRUNJRklFRCwgQklP KXOJMMUiyke7UGKbDJNIOL OIBSDLELFZJ0WjB4mHTSWS UGiTOGVPEf2LCWTyTL1QY5 OVRdLnY6CVMHTXUSjULHqm bmUgICAgICAgICAgICAgIC 1QWDuLIGaGJNGAT0NdEZUK IDIXZqWYHRINZYYBUI9GQC BPFJEZY60WA3WDVMRGUtLS PPFIAN7JRs3UQDAZL0EFUZ 5EE3YEBQgutN4jIBciqvGw tUfmRYYIPuBhQ1GPWJDKDV eqL2ELFZWYWhYDO9vFMGuj QklPUFNZXHBhclxmaTcyMC VkUH4IMgGGZL4PG92XFSZG MZOTZC5LYFQKX38SIqmKUK 7ROWLQZNeMCL4HKMGiVYrO RVJBVElPTlxwYXJcZmkwXH KaWvBnDoOPNFLMGbKtSp5Z QPiIKIjXN6IGF9NEDoCNGR WHB02RZ0BWIGSCWkFDFvGD D0CKCU1ORNYZYXcAT1qqZU S6f1rzfFBeONXziEEnFMYu MFxhbnNpXGRlZmxhbmcxMD WjNQL9eeRcBVPdLRnbYTNh VVgrJd9geISnjQbjAgRiAT Spe9camqMYmltqpNj2a4jj VDZtPxB1jLSlXXifC6dtfs RraLTbRNZvPEl9zI76FNVy wI6meXEdZQzojzHuDxP3IH wvZOWfIzE9VUZulLAfKVYt I3jdZKOrEIdjLVUyWCheoG WgMKD3fLsvd0P1sYVinOIg lOztUcGqBmEpNiBCs3AcLS w8mIzwT3JnTOKqEkZ8xUWb KLNiPBlpRFSuLXExswU6dA 15PQfukwD1xSNqo5Hvw74w o247nX4chBEkFMN1VIIuDD SgeTFnSCOoHDF5NAHvyKDv Y8btLZZoBD5vhkswPNlvKI lvTOMxrBR0CQBesPRjG3Zk FLWqUUfoOGLjtxk6XpXqSf 8bjDOvaDiwUIwzk9fvk3dp tYRiYpq0ILBxRgKjZopsNL rlz1Orx5xjZJGcgj4lILA8 qGWhlNzdb9G8hGNvGOYlhQ UkMQDbOK6ubOMcIXDmfZ2k cmxjXHBnYnJkcmhlYWRccG eqadNeEk2hqTehYEM9BMsn P3erpQ6yKfM3VSkcG1zwtI 0oZOg5CRxdOJHchDJ3npH3 ZTBjtNIpO0HbqS7iTFKdYR 3ifxa7o1uxXZZ0CBivPIOy CbZ3etV5NBGggJZlAOCwyI ljSDaud997XBQ8AoBpINWf l5BaS5TksOlgV64scDybJ9 2eOQUklYdnkA8crXssfD3c UaMoRbLvPCidnTweHS4zKL ZqB3cioJLuATOyXLMzS1kn GlCgaD1mlKaiOBumfqOgDF XtBpz4RWYbqMKrGDWfCqm3 LIHcBADiJ16fddvzJJB3bE 0tz8ese3NbAGfjDKJ2WAAi p94rZFrwrmK3DTvvIa81JN hqRDS8DJgrDHX0tC== CPT Code(s) (test code q0dslOVdBRViaUA1NgPzHI = 3357) Fat8gxp1RxnAEabHFsVMzd fXVucuWnuv95oEB2oS92GN 4qOQHsGrW4GXYejyA2Pic3 FLSqVXDgnSJqT925o2ypn1 llhqWbeAI2iPswWRQpbfka AtA9IPixEWGyldtsLMn5ON wzCEKsdSD6WYMfqYKlF1Xa FFSkII9nsbq6DAJ0SYcjND QtHiU3EYKdmETxQXLbsIqx CXeqo093TOA4TbOtXGXgiv TgtPnqwJ6xTzDjQKA7MJPn IPbvMlP5SGW9LhhwVIY3 CLINICAL HISTORY (test a0ifgARyXQOjhMW7JeYiBD code = 3356) Ylq2bdb9WgqHAqoGYoTJhm eZUjwrVrhm45vIG1qD19ZQ 0wXNPxRjS9OMHpnqD2Dpt9 ZOVgVRLezIFrZ879y8nne1 bsnrYqnJP1jXopDLHqpyto EdP3ZLntBHZtqkltUKs0NU pbDRJesBP6ZEGnjVWqX2Tb DHUuYB3fufb8XPM8MZhvHF FpYkB9DPOruGQuKYTljXit XRgjq331PCJ2SjVzLZVvax YeqYkiiM9sUtUbIVDDhGKd nIRejYDvJS8pvSHqBHFjxx Arxp3pnZOkcjvoJWlud8Iq b4Xqr3TbCVkbFXrgegSacV A5AOSpa0Plg7JmwNXitD== GROSS DESCRIPTION (test v9mbpJNmGBNmwWSAFISkD6 code = [id number]) jzkaHoKZAsdCCwQ9Rzmbwe WXqfYP7bEU7ojEicsRLguK AjBE6BVXJvDbHtAREfxKZu idAsQiLtLQKdhCRjhOF5IJ MqNC6vpzheWJmfSRopVBSd qxP0UTQrkRBnH1ZxGDDxDO 9khhbpBCB2LTmzrH0clpSY RxouIf4akETvfPmzOsOeYt NoYXJzZXQwXGZuaWwgQXJp BFm2pF5TOqnkN82sn8F8Zw p6YANoTZObG1YbBF5pJLNs aYVeS44DQopnLCI6ASIJSp zjPSYuZO1Ps0anAUDfeIJd JFA7LNfzrMUbCJHfKLEwHU b4IPAvHNtpuYJbQE7vaYng LllugHtuy9LezBWhYGqbBQ MgLFGiZYxiVUBbYP2AAuHq KVQ2Yzr9NuSkZPb1GTk1ZY 4YVsIpOBHtPbWlMEZ7RUPq HJw9OTvfXQ1SRYB0YOC4Uc h4NFM1VHWeAxHxBIMaKvJq XGYgQXJpYWwgXFxmbCBcXG 8moBqpoKOphkAQRaDLiO0t i5ezTEpoq0CzhUCaEYDkkc ANClxlcGljTmVzdERvYzEg DQpcbHRycGFyXGxpbjBccm luMCANClxsdHJjaFxjZjFc ZnMyMCBSZWNlaXZlZCBpbi Uwg4LxNEbtptFaYBAxkRHv IHdpdGggdGhlIHBhdGllbn FfN5Z8ktWgVB5dSOJiSLZb X2HfHTPsM26eOSNtqW8iLR XkCL8hMPk7JVOzTVQkWuww LvqlbTR0BNYyIVS2xjtoGm LcjjVvSNCrRGZrwFE6TU1w z26epIB5rJOifSJuNjLcQ5 1ljrGkh7BseKv7wKRbSZey VUUtjD9yjE5bUHZmILKlqt XZJekeRJWpAVvaW6JzIZVz DdNgSLbpnVwwqZ7jDFJyX7 0jn3EBs5JnHKDcIUvsu1wi iPrnr2AehQRpAJakKNDnhK FsAQtepK6bKdBwr3yhwQz6 FKpsqnG3CSXfha6IKtnsOu dmvUzgy8XddFFmFCrhEYAh PTDhVYehHLGnKB7OJsWfWU I1Agi1UsQaASx3JEm3FA9X HmOoNLXxSpNoBTK6ARLzOM w4KNbmKH7VNRS2ADN2Tzw6 QHL7LGLeLlRmJGJfMrOqST XgBHVxCJjsTSuwoIHwAO5t sPazveH4ANLlEWpmWKHlTG HjoFxvHJRPDBK9unqqXckj ZMSyYGolPCGpC77rv1UZt0 SoWP4RBNk6fmNxtktsrZ4k DDNzpzSiMDutrDIvJ2qqU0 TjJDCsQcZmBdDaGIq3VQCg fD5pPx3spECwzZ4mpIOtKG cgYYW9xVUiPTJaJGJzNWEs QN97CHnEFATtejZlIDvzkB VkaWNhbCByZWNvcmQgbnVt YmVyIGFuZCBcdTgyMjAgXC s1N9TzzKwbAHQjSUZ4sxrw BzGeucCuWFYkQbKhuYI0GT 4heL6drHOeq0UmnSc3nZTt MUrcATMktE1xqD4wLdMfTY BhciANClxwYXIgDQpDaGVs z4IoXEjwGMRzWZJEPKBaKJ ERDHtBH0HQIBQcERMumcXK WngrMDUkMGleB3VdLEMaTs BjRDrmmKribW4sXFHaU29i d4MLh3VeHCWgMZnng7pusE ecn2TofSUuPLdzETFlfQRx TDothJ0fKmCmg9pjaSp0TB sgtxJ5XQHqiu5GDnselU4k DbPsl2rirCt8RXDJMvnews Z2u9hpfFczp5WxhCOwAL3E Cn0= MICROSCOPIC DESCRIPTION j2iazFFzESKebJN7UnGfWA (test code = 3371) Nbf6ljr8WnqZBuiYZxVLwi wGJtvmZhig79mYL5zJ96RC 3jGKGdGwI4BZWoqrS5Jrc7 NDOmJHMloXVfR436b1wvm0 rjimKolFV5eCjkXUClfkjw LcM0DSsbLUOdhkpaCLn0IS spLZGojJW0COPmiUToC8En ACSpRP8agdn9QMX6XFrrIQ DsYdB0ONSvpPIbMCOngVou GKuij179PPP2RjJsJQCcdx FnvKibvW3zHiZnBJLWVyHJ jtXqE6WxuwPocO8nxYNhtR M4aN8gMUHzgcTtr3PpvjSe QY6yjETndZNelBLxDWZ6g5 IfXZKqARWkoaUrAZedE41t ujR0GNvuDAZpDN8kYV5lYW yofGcpy6PaC6LuffFnuSlc nwlvfAghqr7kgpvtxlwewH FoIHMdDNYzGS6vs82yso77 uDbnCGPctNTyymBin2WiOa dphK3unP2uuElalO2myZUw mSB2wtyqNKXpancwAVLyDm 9yZy2xj5cnvmgpeQGospJv wC6ypKFbhOS0bD3eTSSzjy Bfm8BjquAaEC2iwUTcmWOq zUIrAQF5c2YlZSLyHNWrmv PuZQcoI43upaS7QLjtPWRy HL5kTM2sMUgjbUrnx2ZrV4 DnwaGpqGFjn24rY4NwpMOh qnWmeuRqc6BygfAmksAuu2 B9nS2dLBD2XAdywl1nROJn ciAgIFxwYXJ9 SPECIAL STUDIES (test p2hquBXhDDAyd5koBBZwlB code = 3376) FuZzEwMzNcZnRuYmpcdWMx OWornwDhHLbio3PzJ8FtUq AwMFxhbnNpXGRlZmxhbmcx UKJtBQF2qyVwVJEmUCcdMY DxHKfqTo3rxRSnhEljHkPd NCLxn5ysyjMWwgnamCb9x0 lkXRXxMxL4tOClFYhtB8be oqImwAZcT9HezOUjeNc8u7 ysZwSqLgN6tBUiNEpzI3zf xuGiyWVvLFRmMQf6hL77DW PlgQ6rwDMbGYgrjsGsZdW8 ETimVSEuKnW9AEDegDVsYK GwF1xmHCKlYLjzTHWqKEox lODbCQK5aNswn2V9tMBtgF QnmEhjKqGcLsCdNfRQc6Si LXc4zWvsG1CxCYKtJiP2hT QgUGFyYWdyYXBoIEZvbnQ7 mKcdfoXmx68dhVVjJUQuDK WpOlUxaOaeFKDtZWPMf2Rq cLqrGWI4wBp2zOxuSmfgJX S2Eqa6YI0vsl98fjx5yBui XZMqztskNcG2UAsmRPWzlu ibRBo5LPffXQBocVV8QQTc jOXsW4EaHRYdUE1dwqc8IF B5KWnoSZSeNhF8BEDaxLEk MOQinKgrWKzab912XPG8Wt AvNS6dF3Uhl0A3pC7hnVWe FYLceFUgKyUfKORovw4bzJ PdEDphv3GhWZI8oeI7fUOn bHTvGCZiNP54Wqzbp8GoPm ckj4PyJ45akLQ1FQapz7el EM8vCtV6ybYuMThxr4ghsZ 0wRaC2FWciDM8nDP1cRXRh oI4zvehmSPNhWkQvevpbDH EniNddkcYsQp5ohSzvZPR3 RFrlS2bpbP0dDkT8HJipR5 thkQ2dKCw6HQkkaHO6KSOy eP6zTH4zvmbxh6foABqsJW gaVUWscaY2ozA8XYJfaDVu Z4FjoL1wYHRvGH9tvefwh3 swRNT4MLvsFCXmTON4FnYi RYRze2Rhejv9AtRxz3OvoW ZxCJgdZ26sf149SUYqhbOm O5sxjWKdppsggKAzbsnqXG qprpA9LYHcBLCsWYwdIPHh XGZzMjJcbGFuZzEwMzNcaG ljaFxmMVxkYmNoXGYxXGxv G7kcJzCfN1NhEOMnAiFsVP jzNLyggAYnmGYtlEK0dF8w BZ8gXZJqrIBqA3LcXFViod DhtWSbZRQ6bIDrfAZcJK7j NUqvgOYlg4mlo3RrE8bqqQ aqqUA0FC5wCABeCWQzDQee v1QkzF3pBjedgLEpmpxlPB xmczIyXGxhbmcxMDMzXGhp X8uwQxOhIERvtQuvSTrrg7 NoXGYxXGNmMlxmczIyXGx0 cmNoXHBhclxwYXJccGxhaW 7sFpUaClDqYowdOX9xAEIa Y7naiRIvGICoRQUhB6oeWk HnjJ3pfSgyJTijQcWmPyAb YrFZs700lo8jEENzbAEvmi RFvAKpdJ0hJVdgJHznSGim tFTeJNnah1brKKZij0n5oS XtTUTyfjJad5pnZGbnbhNu STKeeIVdhGLqHWUlx48zZG jpfFycuWnoYMHji9MfxGrh q9FnMqGcIOxsn7UoI07hnO JvbCBzbGlkZXMgcnVuIGFs r35lp3cqRTAzUmN9wUQzcV T7wOOobQSea1WzkQbtNDLr u8zrMHIojq5nrtuslPTqh5 EkwZ3zqbajQCmedZCakhFn DQTlk6v0jVEeCJVdVGUmNJ uxoGo9LIGdp841gl1lxyJ6 rRTqWJP2ZYhfPHDhTXDwyy UgZXZhbHVhdGVkXHBsYWlu XGYxXGZzMjJcbGFuZzEwMz NcaGljaFxmMVxkYmNoXGYx MEjdV4bsDhRvU5HwLFYqWy MknLZtX4wawNKcBZIyJOov XGYxXGZzMjJcbGFuZzEwMz NcaGljaFxmMVxkYmNoXGYx IEzzX9vwIwRbU7TuCIXkCb IgIFxwbGFpblxmMVxmczIy MLdrtmbhHMBwFNouX9rxTi LsKTIxsYekCOacf9IxBGEr HTSnQbasneVpYRy9wvMhQO BhclxwbGFpblxmMVxmczIy FBgxgecoGHIfGCkyP4biAk OrOLWjjSqiLEjcd3EoFEJe XGNmMlxmczIyIEltbXVub2 mri4ElL7pifYbjkOQ8UEBv J1knmXKluEN5GVF1xC4kUW osblQhWSKul5OiDMGgBEQa YsE6xH2dQSF4ZnIZyGqmYU BsYWluXGYxXGZzMjJcbGFu ZzEwMzNcaGljaFxmMVxkYm KhEKPeVTyxT4doShYyT8Ey SDUdWlLssIyoVOyrLGu2Rt xwbGFpblxmMVxmczIyXGxh vwnnEAKoVHaiF4vcIeMqZL TnmXbnKVpwz6WxPBJzWNVx MlxmczIyIHMgTWVkaWNhbC JZAA68YVUtZDGghCroxD1g yHWSLLMdedU6m6R6MXdlTD KkWVh6TXlhsbHpBOBweT4o UUZaFK3uYEp4znWhKFQle5 UcBX6jGUEiuRFfQDQ6MALo u4GsB0Ztd1PhDMXhORBpwv 4rauEzDqEUlYQlKLYgzm19 CWTpEO1aY1neJRNuIQHyfk SigMMsh8QyWRAgcYN1wJOj FZ1WXvAFt31hQJQhSYNIni ZtQMEwpIitsGD2tcJ7zW3l LiBUaGUgRkRBIGhhcyBkZX Wrwh2mueMdHQVbQUBkh4Ly bCIbiEIcdxAfF5Ybd4AtAD Mscs87WWnlqNAyrr07OD4v F7Krp9JsdC3fUCkqUZYmj5 JqhHXkzSCmIAMii4QxI6wt kffrORoqsLFdpX7bVKEuJK s1MPCic3XoDXXkz3QtQmVw vuEjNGWpLGCtQDOwwW43PC Y1qJievBjndeOrBM4fAMGi lgOyUOEzGBZsuD6yQXitzf YmNHFqbuV6f3E5JKcqROUh qoGcYidmJHJ8iyKaypI3fT YoD5soobrnQFtaBSTlb5Es bM2nmOUOrHIib0OpzYChdI DGlMKbEG1ojgOyRS8fKWZ6 ODggKENMSUEtODgpIGFzIH E8OEsvZdojTZS3lqNyDFOi y3DmMPgeC1lsX63pkGymoM f8fMWdrAkyuMMupYYkEGUo bqF3n2Y7RZGcj9HnuoklFC BsYWluXGYyXGZzMjJcbGFu ZzEwMzNcaGljaFxmMlxkYm CoBEOdTFkzL7otYmOzFuRz GehxZAT5pD== Gross assessment was [facility] performed at ([facility], = 2777) Department of Pathology, [address] [place] [address], Technical component was [facility] performed at ([facility], = 2778) Department of Pathology, [address] [place] [address], Professional component [facility] was performed at ([facility], code = 2772) Department of Pathology, [address] [place] [address], [facility] CenterTissue [id number] 08:40:04 Test Item Value Reference Range Interpretation Comments Case Report (test code Surgical Pathology = 104) Report Case: [id number] Authorizing Provider: Santiago Jones Collected: 04/23/2022 08:00 AM MD Jose Ordering Location: [facility] Endoscopy Received: 04/23/2022 11:42 AM Services Pathologist: Vickie Ponce MD Specimens: A) - Biopsy, Gastric, Random gastric bx B) - Polyp, Gastric, gastric polyp DIAGNOSIS (test code = [id number] 3220) FuZzEwMzNcZnRuYmpcdWMx IHtccnRmMVxlcGljOTYwMl cjzxNfAXNviLYgS8Trfzxh MAoxMO2tQC9qyIkzmQAumB RlWZHuIqTnv4vff695oDTf e0diEYWPpsqpjIa2xEuzB0 9xv8O3LuqtN43tbYImWNF3 YPQwZLTvtANkJUDeBCQ1FO DqoYMsM7pgOAHpYX9sgsfl KPxyZWduRNNzkPD8TVVtnC WfF8PaCHWrACkyHJYicfj5 PqUtCa7kxUQwzPbhWOogTC SyPFWiIMjwQQZuTlBkXV8t CEZFA12OF6cpXRGMHFFnVi 9UIFNQRUNJRklFRCwgQklP IGKSIJIinjl5SPRiLOIYVJ JLMUWKAZVJP9LyK4oCDXFE MUzGAILZYn3QPBVrGZ8TW2 MSZuLyQ1NAJRERVTbIKTrk bmUgICAgICAgICAgICAgIC 5LXFrQBFwRHVFLX0YqYWSP LXBYJnFEMEXMBAVJNP2UKI TTNRJON05EJ1ERMVZHCvEG BIEJDS4UMr4KDDFEA5PGOY 8UD4NFQKmfjP9bKDkybtDi qDmzUTGBYjUjQ5FOTQQMNU lgF5AVVRXPUyVPP1yMEPvl QklPUFNZXHBhclxmaTcyMC ImBU0JObCUFP4JV21EKVML UJEIEG4EMEWNB20NCksAMJ 1LFGTTIXcLFP1DODAdRUjL RVJBVElPTlxwYXJcZmkwXH RcElEfAlOCWIXZQiSkRb2O DIqACKxSW6LPK1XFMbTMVW YLG60FO2BEWYGUYvVIHjGH L1ZEZY9FGQPMMKsEZ6yuHR M3k5kyzAKkNMUyoNCsZKVt MFxhbnNpXGRlZmxhbmcxMD ScQNR3gwAnOLLlAGocWJNn JGeiRe3xsSHanKqbRuSqAY Zka0rknqJPvmthuOc1t6lq TQKeGeV0bMToMScaB8uted ClnPJiWKPrAHc7mM77UWMf mF5lgIVkSUcqcuKuYaW4DI rcSYZyPcP0BQNpkIIeVWXb F4owZFRtZWkmUEDjQDvixU NuBVJ7vPwpt9F3kUKynJQw pKryDcFpKyRqKmXVb0WwKG g8mAjgD0CjZVCeCkL6pTPn TGAuJDuxGTPmIZUhpnT1aV 31SGtmhcG8aRXtr3Jyh32t k206iV1geBHqJIM3RGIoQY FwyUEtRKVeWNV8ICFbtJAd U2nfCVPpDA4njvssFXhxOK gbAQCieNM5TSRxxISzT6Jq RTLbVFixLDLraxq6VoWcPy 1cqDQroWeoGRloh2bew6bk kJUnTvn0MUQeNmTdWgszAE wmx5Hii9flHDPpia9fFXG7 tJJrvQbsv8D3zNNfMFFxrD UiUOQuSB7fqSIjQCElgJ3f cmxjXHBnYnJkcmhlYWRccG mupuTgHn2vaIocDAH0UUyq Y7ocvO4iRpK4UQpmJ4oxuT 5fGBf0JBevSKDfiDJ7ypS8 EGOvfELjK8NavD7qTJGeMF 5xpzb2e3onEEI6VQlgAUEz QfB5jiW7NCFueQHaNUQxuM zbEBgzi438YCE7WxKsMEMf b1TyB3ZpkRtwB14jjYxvB1 9sPTAmsLenpX1xqVposG4s YkHxOqZsWEpuxRkfOL9dZU GuV7fiwQOcSKEzYYChX5zm SqZxoJ3iuUgkXPmpfdDfFS WvVuu7WCGjvDClZVYgJui1 KPWmLHCsU63qroceULU3eO 0wt9aby9PyRAoxIFM3JEPf m10mTExtogD7NAqiHy96EI awZFM2YKesFZT9tI== CPT Code(s) (test code b5qotHCgQKIhsKJ9WeLiOE = 3357) Vys0ehk1SjgAUcyFUaBYjv hYIlgaUisg73uCV1iH76ID 0eQADuMqF2RPUxvqD9Nqa0 VYHyQMZgdURuB308k9cwx9 jodmRszBC1jGzrAMNurdbg TaQ4BZpoKNJireioCEo9VU ctSQGihBA9YIRmfMWpL8Jf LFRtDF9ykxb9ETY6OAsgGC YhUtS8XPGdsZXkBTRuaIsj REtux965FQV3TlIdWLSqmp DfoDiijO6aYnAbNZQ6PMYi QZjdEkY7LAM4QlkhCYM5 CLINICAL HISTORY (test c1doqRMsRXCgfWE0NdZpPG code = 3356) Esr9kdn8ArcTQgnZPaLEfo lUDsyuRnbe60tZR6uQ25AO 8rCERwLcS8RARewxA2Xnk4 AGAkRCOkqTVfI976c3xcr7 cmbhTemCS2aIntFDHkwrmb FqW7XGeoBCMnmkprSLi0TP wsMWPrfSJ7QQRuqHCwH5Gk INYsYC1dwhj7YKB7HLzzBZ ToRhK3PFOwyBVdMKZezKlv QBrcb087JCZ4SjUrNVAmmb WzsDhtjB0dLaAdTCDBlWSm qNBpkECmKZ3tpCVjTPTqsz Hytl9hwLIzriypIGksy1Xm x1Vab7VsMXdsTNypavQzbI S7DUHus9Xfd5WaoLVvdG== GROSS DESCRIPTION (test g1lqxKAxTSCleXNKPOZwU3 code = [id number]) zjqyRbPOMznZAkC4Szwlvb GPqoSY2tTH8veBcsyMDoyV FlAL7ERHGtOrEiEKDhtVTk mdQeCuLmFZGmoSQhzEJ9UJ BnDH4bshzmRHbgTXzgHRSc rtV7USXeuGBqC2ApZJHgKA 4kipwvOSY7OJowsW8wuyIE EcjwXf1isDZgyDivQtLgUl NoYXJzZXQwXGZuaWwgQXJp HMy7oW1HYpnhY13oy3C6Ph a4MZAaQAEzV0YnHL2qNEYs mLYrD72HPifpLXR1EIKHAr vcSDGpYM4Lw8giIWPxzOUh SLU1YOtndXPxLCZuYCGrIT z9ZNKeQWdbhOLpSY9ehPre EzkfzQdpj1KpgPGfOOqzTX ZgGFChPVvrCFPxVV0DSrJs ULS3Cdr4UjNnKXd6HSe3QU 4QBpFmOAFsFyFhZFO1APHd SJj3JDrsFS8ISYV1UMF6Ie f7BOM9JQNaTuXxSFNtJgBs XGYgQXJpYWwgXFxmbCBcXG 8vgHcopFUypePSJrGLtJ4o w2oqRNkcu5FykUUmEMQgym ANClxlcGljTmVzdERvYzEg DQpcbHRycGFyXGxpbjBccm luMCANClxsdHJjaFxjZjFc ZnMyMCBSZWNlaXZlZCBpbi Jaj9OpGHzfygReUUTdhOXv IHdpdGggdGhlIHBhdGllbn KjD8G6ptSpLE2mNDZxZYDi H2BaNGVjU89kLAOpkP7eVI IdFJ2xHKx7FNJbLSFmPhaw KefjdOT4MPGgFHX8txcpJw BixpHjSZPjUOIsrFC5XA8q a56xzMF6wBIdnANpXbTwS6 0mtrEwn8ZmxKe2tNSjMKwu ZHEjvO2teV2xEAFvQKKacy LPQnytFXIcGWzqU6OjPMJn DoSiQBrimUxqkF4hDKXiC7 6vv4LXr7WoXEBcMHasz1sf lYasp9ZtuHIiJMrpLSHdnB WyYJakgA8mHvVoq7hsbDe3 EZzdelX5QVFzwb0NTzntZc ufaFpya8YetCGwZTssZXFf KRUiNNbpAQRvXQ6IDdFySD P2Yag9OnNiNFs2WVd7SA4F SyYcTMUdGzGwFAR9EMXjBK g2VLjiWU2DAVC6IEO7Zyc8 UUJ2ARVnUhRtSXFxQuJnIX HcLSKeUSlhAEobuPKaNI2f fAuycrU6IRViZPvsDFTzPJ WylBiyWPYPXWI5kwjoFamt QFVbFDizAJPiK58ek3ULg4 WgZX6MDLm0neKarxyewF4p SRFgxzFzZZlfwWIzD2tkK3 AcAZYcEfMsHxBfHVa9UTPn tM4uBi2qkXGxmM6rfIBpBV zcAJP4iVMaRPYxCINeJICd GJ00MHfIJAEkjsRiUIfhfF VkaWNhbCByZWNvcmQgbnVt YmVyIGFuZCBcdTgyMjAgXC y7E3ZzyEqiGOChIZT9khvf AnPnwgVkVPVmDoGacSP9LK 9oyV4ofWMnt3RknVq7hIOd JBisINWevL4ycJ7yLzMjAE BhciANClxwYXIgDQpDaGVs s5IyIJsfMWQaUQCQDXOiRA XVFDwOY8DENAVmMEJerjMJ GukqWYIhKUiaT8QoWXRsEv RpNDeplCzzwX5oKKCzF30r a2QSu0ZzSIBoWPprh5pntV loe1ZbfTZoTTarFBWxpPVu WFpqpT9dVdVib1hzzDi1OY tyxkB5RRVkcy7FEsznuY1n IqVet2tckCd1NFABLgcqij B8t4idiZdoy8HfcONoJY7I Cn0= MICROSCOPIC DESCRIPTION o9klrNGoDFHjxBJ1ErNlLP (test code = 3371) Zdi3jzu3EmsONpkTMtRUds dCPdkvCslf95fVM5xW21EA 5dJKEaYnQ4JBPbsmM8Kam7 OSLxLSSpcCEeO353p4nui8 caovUihKU9qRazPZEoxysd ZlU8BIrsYTThsxpsDKi6HU rhXXWwnWT7YCPghGKhX0Nb UCOnHX7pflv3ABD6DNwrTM YyDtX7OYEjjSUjKNYphDsb OWsxv998IGR2CiFtLIUnbk WslWxqkK7uNzXvPWDCOkHG mmUqK0ZnskMuyW6ewMZfqE S9aV4hOGErgsEur9TadnJh TZ6orIAhgBEhaHVvYBG8q1 FoRBEsPKKmecTbNCedC46l qfR7DIxjYVYoHW8jHR5hZC nnrLqmc4GaN0SmfuBmfOix qsybuJckzm2euvkwgeddjC OgVBCwXKFoRL8qn73zbs49 mSkjAWDitTDmyhHcn9LmXy liqX8rnK9ofIlllX6daIPs iTT3wtpcUBAiohuyCYRrOd 1sKe9eu6sfcddyaUDhueOi mY2qvSHwqBS6uG6hPMRwip Hqs8AqeuWnFK4psNZknBPk hCQsLKX7h5BoVPLdFMFheo XdZPqwK36sxpL2ZSwhQDXn NS8uGO2eTCaeqMtsx9GaN5 PlexVkgOSvx17gT3LdbQAo ieCfltKjt4MozcNxrpFjj5 M3kP9rGOX9OMnqfu1zTQWr ciAgIFxwYXJ9 SPECIAL STUDIES (test e9xhuOZiTWPgw3bxZDUmvJ code = 3376) FuZzEwMzNcZnRuYmpcdWMx NUaytgHbMYidv9LoJ0DuEw AwMFxhbnNpXGRlZmxhbmcx MTRzHLT7poNnZZTyGLbvQK BkWNtyJz7zzPUypOpuOvSy IKRid3oogxFXiwxbpTe7i2 kxFKFlOtE2lZSnCTerI2rt dxVqfXGaL1CisPDbbLq0i0 gtDyOsUdP4fOQjCHikK1fi iiKsxXZnFQIgMNl5xB07LU NcpQ4dqOIhGFbypqIbSbQ7 CWweWVJzWqL7LVNmoCRdQX HrA6ycEUYhYMofCWYpFOhh yITxSUN8cKjjg2C9jCEmjY FtkTupGaNvZfLhKaIGv4Qa NCv2fYssW4TqESEjOvY7rB QgUGFyYWdyYXBoIEZvbnQ7 fInbetQhj32ldXPePWJqBK HmSxUwvAbrWENeZRYUy9Nq nIxgNLE6aOr5xXazRplxYR U4Ehu8QK2aui74sfw0gNrt WVOdqadqVfB5DTecUNDxfv mgFXu2HUprRMAzvPR5RJRs dMOzS7OoLJGkUA5vbkc2PU S7HEfqFNSdCmS7QVMcmZVp SJZqfIeiOYkwz483UEU7Mf GjMY3fB1Vif2G6tZ8jfLOd GLMpzBJcFaFaDWJnhw8srE YtAWuix3RrSMB6jiQ2sQZg tRUiHXXrYT13Aeand7FtQa ilr9KeD11zpBN9NDrcd1td PJ0yEdD5cjEfVNjzu1fyoD 5qAiB0SIanYR2tFP9sAMCg gF2hinpuCKPrHsStgcueSV PlmIrqqrTySy6kbYgtEXB0 JVejB4paxJ0aUhZ3UEhhD1 lycV1qVOz2HVhiaMJ1SOCl sA3lTM2myidap7uaYEofPC cdGWXwtwJ4auQ7BGCgjFRy X6BhqX4lVPYjMY4etwodp2 gzBNY4CDfdGBMsBEJ1HlKg OOWcq6Ulqgd5UbNaa2YekT HvAMisF88sj485AWFjdnHh J0kieJAfjgrteRAzrgmnDN ghguO5COWsYZHjZLfmLJDf XGZzMjJcbGFuZzEwMzNcaG ljaFxmMVxkYmNoXGYxXGxv Y3imAfIkE9JaFTWfViHtQC khAXmrvGSvrCJqvLH9sQ8t LU3xAZYzxPWcZ6NwMDUnow YjuMPcRUB5dHYgjGXoLH9k NXntrMNbc0pjo5LhQ6tooN gnuHV5SE0wSQWiIDLnLDxg w8TwfB0zZmwhdTXjkdfqJW xmczIyXGxhbmcxMDMzXGhp C6abWwOkTVMzkCyoWGouu5 NoXGYxXGNmMlxmczIyXGx0 cmNoXHBhclxwYXJccGxhaW 0gLgSiDaIpJmyxBU7pKHHn N6mkuLRcRPVsXYSgF8qhQt RilR2egNpuKWcpUpAlPeQw EvLRa332sh6yKDIduXUwax DEqAOrlL5iOKsiCGoiWCmw tKHpBFxvj0pdNXHwa4b3tD WsBGWvsqMus7xjYFmmbsJs IHFtlNNmmWXsNLWpa00zQA ozwYmzuQoaZXErl7AojJfk o0HcKrOcFFanh8LpR20cfX JvbCBzbGlkZXMgcnVuIGFs v25ic3tbBGRsFoR4xWDdlC O4xOLtlQVlh7QddNqoBELk r1wyBVHznz0mlctqgURsp0 KlnF0rbuxnKRcsoHPidyYo LZIuo5m5hWNnCFSbVVSpPK ywtCl7PWHkf449of8kdgY7 vYToDIG6PPxqRNPyUYTkul UgZXZhbHVhdGVkXHBsYWlu XGYxXGZzMjJcbGFuZzEwMz NcaGljaFxmMVxkYmNoXGYx OMddR1biJpEhA3AkZEPoSo FhyOQvA4opwIQeXXUhKOvh XGYxXGZzMjJcbGFuZzEwMz NcaGljaFxmMVxkYmNoXGYx CVjbY6pdVdMzL2WcCUUfUe IgIFxwbGFpblxmMVxmczIy SHbxjocjOPKjADfxJ7oqRp LeFBIxwZbzZDekl8RtIQGc DOMuYsyxuyBvZZa6yyZxLR BhclxwbGFpblxmMVxmczIy UBlgyennBZKmUMrzX1kvCf AoXRRekSxdKEmal1RkGKMe XGNmMlxmczIyIEltbXVub2 wqg5MvF9tgtWzcgQX7WXGm R1fjmECsiDD7QSF9oO5oOY nasqSbJLQfs9MjLMAxJWEg MsH1hO9uSIO3UaTMaTkcUT BsYWluXGYxXGZzMjJcbGFu ZzEwMzNcaGljaFxmMVxkYm XcEXMoPKctA6phBeWkI4Dc OGVvQyNyjUonPIgrXYc3Tt xwbGFpblxmMVxmczIyXGxh dtoxIZYnYGftH3hfQiLbKD QqpMlcKRdwa9DvZCBqHZLd MlxmczIyIHMgTWVkaWNhbC BYKK01YOSbWMYwqYahsH3z iBKLUCKeolJ8g5Q9NPaoND ZlODt4HSebylVeDJWjkY8s TZCgFW8uRSc3yzHrKELli9 EgGA7kHHPpnCFuBZQ4NSTs m5SfP5Egv9PhUDJlXGFyid 2ythWbRfMBmFWpFXOxgx70 MVKoPT3wG7xzQKMiWETyjg OnrSSxt7JhDLFzsHC7qGYe SV7EHcIBg93zKVYrXMRJfh GoGEVaeAqrhYG4uiO7rW2a LiBUaGUgRkRBIGhhcyBkZX Jejt0wpfKbOCHkASEil5Jd wOIhrXQvsuVfE3Heo0DaIX Jpwv50OBsmqJWgxd14PJ3h X5Ijj4KktD6dIIwaUODdc5 OhhCOchZAfPGEfn9JsE2lc mttdFYezfLZltP0xINYlWW e3EGIty9SqOFDep5TbIyFh doZiIKEeCFXdBYOkaJ89GE T0pSlpxHshrhPoBR9gKSSv lpGpGRUoWQUjhP0vOBiaib KeBPDkupX3j6V1XZrhWNLe pgDxVutiFHZ8heRuurP7cK UgP1tzhjvrHXnlCMVlw0Ru yH5czOYLkUOrk6AotCNppR VFlUEnLH7uooRcLF6qMJI2 ODggKENMSUEtODgpIGFzIH A1QIriUwhqKHL3dwNhAYPg f1WsYOfkY6goP49ddLownR b1fWNeoNtadLBlbCLqGMVi xqF0h0N2YIFpe7EfxvifMO BsYWluXGYyXGZzMjJcbGFu ZzEwMzNcaGljaFxmMlxkYm NkTVKrUCypY6nrPvDfRgSq XdhrGTT8jN== Gross assessment was [facility] performed at ([facility], = 0129) Department of Pathology, [address] [place] [id number], Technical component was [facility] performed at ([facility], = 2778) Department of Pathology, [address] [place] [address], Professional component [facility] was performed at ([facility], code = 2779) Department of Pathology, [address] [place] [address], [facility] [id number] 08:40:04Surgical Pathology Report Case: [id number] Authorizing Provider: Santiago Jones Collected: 308:00 AM MD Jose Ordering Location: [facility] Endoscopy Received: 04/23/2022 11:42 AM Services Pathologist: Vickie Ponce MD Specimens: A) - Biopsy, Gastric, Random gastric bx B) - Polyp, Gastric, gastric polyp A. STOMACH, SITE NOT SPECIFIED, BIOPSY -ANTRAL MUCOSA WITH MILD CHRONIC INACTIVE GASTRITIS -NEGATIVE FOR HELICOBACTER PYLORI MICROORGANISMS BY IMMUNOHISTOCHEMISTRYB. STOMACH, GASTRIC POLYP, BIOPSY-ANTRAL MUCOSA WITH NO SIGNIFICANT PATHOLOGIC ALTERATION -NEGATIVE FOR HELICOBACTER MICROORGANISMS ON ROUTINE STAINS Signing Pathologist Direct Phone Line: [phone] signed by Vikcie Ponce MD on 04/25/2022 at 8:40 [id number], nausea and vomiting, gastroesophageal reflux diseaseA. Biopsy, Gastric.Received in formalin labeled with the patient's name, medical record number and "biopsy, gastric" is a 0.4 cm da silva soft tissue fragment submitted in toto in A1.B. Polyp, Gastric.Received in formalin labeled with the patient's name, medical record number and "polyp, gastric" is a 0.3 cm da silva polyp submitted in toto in B1.VALERIA Jean, BERNIE (ASCP)tool repair technician. No active inflammation, intestinal metaplasia, dysplasia or malignancy is seen. No Helicobacter pylori microor ganisms are seen on routine stains or by immunohistochemistry.B. No significant inflammation, intestinal metaplasia, dysplasia or malignancy is seen. No Helicobacter microorganisms are seen on routine stains. The interpretation of this case included the use of immunohistochemistry or special stains.Control Slides Examined: In-house known positive controls were evaluated along with the test tissue. These control slides run alongside of the patients sample show appropriate staining. Internal positive and negative controls when available are evaluated Immunohistochemistry technical testing was performed at [facility], Pathology Laboratory where it was developed and its performance characteristics were determined. It has not been cleared or approved by the U.S. Food and Drug Administration. The FDA has determined that such clearance or approval is not necessary. The test is used for clinical purposes. It should not be regarded as investigational or for research. This laboratory is certified under the Clinical Laboratory Improvement Amendments of 1988 (CLIA-88) as qualified topermission [facility] clinical laboratory testing.[facility], Department of Pathology, [address] [place] [address], [facility], [facility] of [facility], [address] [place] [address], [facility], Department of Pathology, [address] [place] [address], ZDUV , [id number] 06:41:00 Test Item Value Reference Range Interpretation Comments Test Urine, POC (test Negative code = 6131312) Control line present?, POC (test Yes code = 3371625) Background clear?, POC (test code Yes = 7581504) UPT Cassette Lot #, POC (test code 20310529 = 1681927) UPT Cassette Expiration Date, POC 05/23/2023 (test code = 1109352) Lab Interpretation (test code = Normal 53410-6) [facility] [id number] 06:41:00 Test Item Value Reference Range Interpretation Comments Test Urine, POC (test Negative code = 8161009) Control line present?, POC (test Yes code = 8836873) Background clear?, POC (test code Yes = 4034506) UPT Cassette Lot #, POC (test code 20310529 = 8475591) UPT Cassette Expiration Date, POC 05/23/2023 (test code = 6540922) Lab Interpretation (test code = Normal 03995-4) [facility] , [id number] 06:41:00 Test Item Value Reference Range Interpretation Comments Test Urine, POC (test Negative code = 3988116) Control line present?, POC (test Yes code = 1736153) Background clear?, POC (test code Yes = 1899713) UPT Cassette Lot #, POC (test code 20310529 = 6765106) UPT Cassette Expiration Date, POC 05/23/2023 (test code = 6325956) Lab Interpretation (test code = Normal 54933-9) [facility] , [id number] 06:41:00 Test Item Value Reference Range Interpretation Comments Test Urine, POC (test Negative code = 2232961) Control line present?, POC (test Yes code = 0572263) Background clear?, POC (test code Yes = 7507614) UPT Cassette Lot #, POC (test code 20310529 = 6984034) UPT Cassette Expiration Date, POC 05/23/2023 (test code = 0120203) Lab Interpretation (test code = Normal 58118-5) [facility], WITH [id number] 18:04:00Release to patient->ImmediateWhich [facility] radiology location is preferred?->[employer] ID = [id number]; Insurance Company Name = [facility]; Insurance Company Phone Number = ; [facility] Number = [id number]ARR[facility] : 1995 Sex: FFINAL REPORT [place], UGI, WITH KUB CLINICAL HISTORY: Z98.84\\S\\Bariatric surgery status ;R11.2\\S\\Nausea with vomiting, unspecified ; R13.10\\S\\Dysphagia, unspecified COMPARISON: None. TECHNIQUE: A chiropractic neurologist abdominal radiograph is acquired. The esophagus, stomach, and proximal small bowel are evaluated with single contrast technique after oral ingestion of thick and thin barium using real-timefluoroscopy and acquisition of multiple spot digital radiographs, followed by AP abdominal radiographs. 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 Sternotomy wires. Right upper quadrant cholecystectomy clips. Phleboliths projecting over the pelvis Esophageal caliber: Normal with no focal narrowing.Esophageal motility: Normal.Hiatal hernia: Small sliding hiatal hernia.Gastroesophageal reflux: Severe spontaneous reflux. Stomach: The patient could not tolerate gas granules and the exam was performed as a single contrast exam. Small caliber stomach status post sleeve gastrectomy and otherwise unremarkable by single contrast technique.Duodenal: Unremarkable by single contrast technique.Visualized proximal small bowel: Unremarkableby single contrast technique. IMPRESSION: 1.Severe gastroesophageal reflux and a small sliding hiatal hernia. 2.Status post sleeve gastrectomy. Signed: Millie Berry Verified Date/Time: 03/22/2022 18:04:40 Tissue [id number] 09:07:26 Test Item Value Reference Range Interpretation Comments Case Report (test code Surgical Pathology = 104) Report Case: [id number] Authorizing Provider: Santiago Jnoes Collected: 01/29/2022 09:30 AM MD Jose Ordering Location: [facility] Received: 01/29/2022 10:12 AM SERVICES Pathologist: Jose Beal MD Specimen: Stomach, PARTIAL GASTRECTOMY DIAGNOSIS (test code = c6oyzARyJTTuw8ydGBZwgJA 3220) uZzEwMzNcZnRuYmpcdWMxIH tccnRmMVxlcGljOTYwMlxhb dOuZLVhxWQzU5XyiktjTAbh SC4eXD1dtHccmZDoeUIbEHB dZzHbe4wiv527aVFyq5sfWK WXllodwTj1pAquG75oh8A5J vnkF8ffZWFsLJrqKTVgPMju qWRuOVd6FZFrpBKwdgAfEvI qVHPewVZfaOE2PRCwXL4nqk dbDEfwDFizYIYrixX4YUTun BXmU1OxKODgGA5xsommTHJ4 IOplNRFiMEO8SlJtCPWrr9U uprv6FfBbtXNwTJmwnIUvxg ejieMkRPJfEXpgFmSmM5BMD UFDSCwgXGNmMCBQQVJUSUFM IFNMRUVWRSBHQVNUUkVDVE9 VGXicMcDcFapuQHHoK3RiOV LmORMPVPxOUKkSEM5KA57MO AIOTBUUME3CRfdTMCvePNSf MSBDSFJPTklDIElOQUNUSVZ KZKrQP6QFGVPTF3lsVACcL4 BaTCCyO8HlJI4yZ1AuDMMdI 9CxBXNKECuJCYnBVAFFU1Pk SEVMSUNPQkFDVEVSIFBZTE9 SSSBPUkdBTklTTVMgXGNmMC FzEDXaAEHSAJXhJ5AoOMqhF PJSJFYRDQ3OGJpIGftwkUEe HHEpI9NsCU7wF2NbITXwO5E kTGCTWKfJOHmJURXXA6AgBP 2ANJUQAA4AQNLMSUDIIRpCF 4lVCTPQLATJBADGFBOnSN8B QYeDRoKFO4bfyGSblJjbixO eSBkgk0IhHQhgDSSyRF2ccX iiCMSuPF0dJZNmI6fptX2ay tc9CcWjQQBiPiJ1QOPiruC3 Idt9WEWfLWakg8gxp2CcHBL dSOg4lLrhHuMsXPKwu2mitd BcZmNoYXJzZXQwIEFyaWFsO 958v3hqu2vrdmFvoWE2YSZe LJM5ZIzhbbWhjmZ7JGludWY sIaI9KJthffNmJQwwucQvxn JrQiw4GWQgF899BRQ4jDqtj 6vuIAK2JWCbVSRqHoUbWd8n aTVtT324FRXzWFMQNSWjpLc 6EXRrtyWekfNixXDZk364E9 32b6knHNDrlyPaaXpKfokgl 4znP839QIVvaEDiyzMeTdBi MLJixSXmzNV7QTNpMR0rwer wXPntSEavYRPqqqA6MYAukV QaO9VpTFJoSE6bkdwqERC7D GycVNQuTLQ5RqVfPJKch9Pk ogl5YeKbgq6grp10SFT0h9Z fmJdgGDL2QOK5FsPzMm3peU HeGGNxAN4bPuFxoKRgMOMci g60cRxrDNlsVPE1HBAxzvZu q9Dma0koAkYzwdYpD4upS4B yZHJoZWFkXHBnYnJkcmZvb3 Vgb9SiuXMziLg9x6qjOHNyP BHjzStuo4boXGE0TVNbmTBg T1xijE3wXFUkDZ8tfozuw4p nMYodHKwgURCxxQR9bjN7JS FltJZhH1MojS2rGAHxZHbkM MFbooi1ZzOoUu1vaMGodYvo MFxzYmtwYWdlXHBnbmNvbnR ccGduZGVjXHBsYWluXHBsYW luXGYwXGZzMjRccWxcbGFuZ zEwMzNcaGljaFxmMVxkYmNo MTQwHQakZ1jyQkCfRkTjAya 8BJUlzCJqFOYkCwj3JYCjsP ZjWEODbCpbmS6iUTLacEoas V5chKP7QHOqxmYjiOKAaN6p YHNRxZ6iTyT6DoOaUkN7WNL yNDlccGFyfX0= CPT Code(s) (test code q8hqmZDkCBYkdNV7FcLsNXN = 3357) et8jsw5OkzAHvpJIjJMvjiF JfvkFdlh37eOO0rQ98HC9mF OKqWyO0HGIziqX1Cza0KSQy KBSroVWiT894i6uao1oeteF cyJX4pQfbLKLwesviJjE2HJ hfGGZxwwgqZBz5OSnnSMEhr TK3HZYzvKRyV7QoVALkQL4g epc8GSY2EXslHXBjEhS2SID vqLGkJJXwqHgdYPjub914FQ V8YdCkSMCbnmRufTrcyE5vX uSrPGI7DAUuECipZWF1 CLINICAL HISTORY (test v5yqmEJjFFErfUV5QpAqMPW code = 3356) po0ktb5WkbNRhoWQkZXmdmT KfjrWxic61xDI1uD34YT4pG KSaFgT8SUTlggB2Rbi0IVMn KZCnkRVdF505z7zgc5fatnV wbXZ5BFFdLETpX1BpZG9zES DjsFEgO28rfEDbJIM7GSKhJ NVkyDTqIQMtORY0TWMqyWFl Q3woJXRaSJ3taavhFMrgECw mOLHoeQO6ZWZqtLXeJ9RjGZ BpRGlxPKVxqvw3AbXyTi5zn GVyeTcyMFxwYXJkXHJpMVxw rTIakdzmpdXlJUZaUWVMo2W wbITvg5Znc0y2yXbtVb2kbW WyWMPfKQqaJWJ4XHHoDgXeJ YWdTCndVJD0pNFdLIF6pY4x qlUjbCD0WRs4KODnjlQ9MwI lW4clsuT0EPACBgP6fcYlgQ u1XXJvaNQcfEWehK8fHZZgp mSHBGFDGUTXd78aHV5zjEHp ELvaCVH3COUjc1Axz3PonNT yfQ== GROSS DESCRIPTION v5akiPDiRWPydJHOMFHkA8i (test code = pafSxITLgaEBdE0OvbiboHZ [id number]) ckRG9uHO2mnLwvpWUoaADjH F1LMJLaKlDkSRZbnVXnqfSx NkQfUZPisXAflQX7KUSnOW3 ycptsYLlzOSdeXPBvozB3XR CiiOIjG2KsQQAaVP0rogyoD NT3LVsquX8okcHPTasgOg1u dHRibHtcZjFcZmNoYXJzZXQ xREHmxXfwSUIxDGp9wC6BTj luVYC2MCMEClzsQJMjDE4Gd 0mrIJPbwHWfJNQ2GCtgdNOh TDAjKMNlJGk1ATPfCZkzhGH kQH4kbDdhSwgrzGhvl4AadX BcXGlkIDUxMDAyIFxcZGIgI X7ZWgCjFMH6ZncuBGGkKRb7 KUv5PD4HIgFmVABdLNp6Iqw 5VDCuNNa8DBwwIV0QWQTmGB l4SNVmBtH6HQLhLUWbDUAzB iBcXGYgQXJpYWwgXFxmbCBc CM9cyIzpxYEkjoTUNwXZuN0 tYWNoLlxwYXIgDQpcZXBpY0 4le0VZu3YzVM2DRFq0fwAis lzfmV2rFFSdwuPmPMtzeLWx L8jgExCwBBOOKVVgiCUgFQU xcwSis8RhGLahquKmQFMovQ NhMURiIROhCQHoFR74L6Nbt lQjUPriFQAvUWEvfU0vCC21 bWJlciBhbmQgInBhcnRpYWw iG2NeqSLlC3XjwTudIGsdLY YpZwJcYJL7WDHqEDD4ZURjQ QBvqPY6bi5xqGQcuKTlSRKm diPdo19pg6Wdn8UtuXIndSC 3aXRoIGEgMjAuNCBjbSBsaW 1tLKLgb4EmmNqsDJbpspXjD VEZhJVnx2Kdm9XnDSdbXKYt dz8hnZ5sDCJvjA6prJswMN7 zMUf0dQJeZD8oUy4tRQVkOI ZpkVBesT3ycuThbfTjhHRuS QNyfP7hjeY1ZFSeRZTvkBAa QSPjlnnuBKDaX0IgsUgpSSY 5cBdleSP0j8ZoUU32R85vUW P9sIT2EZUth8UbXIthVQ7gj b1wlYDmgXypkMGsj0kvps7o QB5cBMZhg7QyETYjDBwgj7c ywwBsCCRhVXyjOQ67eHBwWT QuRMISTUMdRYYjonCrsTs0U WGqXCL0zQ0zriPtoyMbe2Bm xLd6qHVkCKsjXNSrJXUgRzo weS2zLGddxS3uICKwhNJbJX BaM1NivLgmenyfCQCkWPkOQ TwBZ9YNLF3ZSQYkCDhlRPYz vAMNPHS6ZV9aBDgepVYgwtw aRZBwZ2VaK8BebrHxhPEtWO QmmsHbf4dgXCY2AWJzyESlk REzRtPzGqlqZVT6YXuhp1ow LEW6LTRmrPGoeCWoRNrnKwT eZcnoXJGyC1TnR2MfumP2SV p9 MICROSCOPIC w9jtmJVkXFGyoOR3RqNcSMK DESCRIPTION (test code ab5ydx8NrbFKwpTVlJCfdjZ = 3371) MxruAlrb64cDM7rX43GT8cS CXrTwH5KXDtmwJ6Gyq8VHBh SLGrcONsS037k3rau2dkvqD uzKV0oAseJTQvgzgmQmI9QO qsTFCuueocKQf6IDrkGZLfz EK0LIBiiPGqV6EhQYTjWN0n csa0XXQ6RAxeYQVdLbL0TQC hlYXbQVFdwYsrGEjmd989DY I1EaCmXYWxhaCswCgntX4yX lFiUQRESHPtb4ZgABMpTWLp clxwYXJkXHBhcn0= [facility] [id number] 09:07:26 Test Item Value Reference Range Interpretation Comments Case Report (test code Surgical Pathology = 104) Report Case: [id number] Authorizing Provider: Santiago Jones Collected: 01/29/2022 09:30 AM MD Jose Ordering Location: [facility] Received: 01/29/2022 10:12 AM SERVICES Pathologist: Jose Beal MD Specimen: Stomach, PARTIAL GASTRECTOMY DIAGNOSIS (test code = y1pvaLVsGZXxs5fyBTZzaYL 3220) uZzEwMzNcZnRuYmpcdWMxIH tccnRmMVxlcGljOTYwMlxhb gRlJVBskABbB4ShyvouRMnk ON5lKC1epGmnvNAvjFZiYCU lJrOgw8jcm412iDIcb2frAE OJvbicoPw6iCtdL18td8D8W udxJ8luGGGiHUjwHPKlYPtu eSUdCXd1FNIfxRXddsYuQsK jMITvbHJegKF7CZXbYH9vfk rwTYefYOytFDInqeZ4PPDdi DDaO1EfFUTbVP2sxamyPCZ5 CMvkEGLeIKC2AeOrKVZyn3H dzvp4JjMyzBPkFLaflUOjgy bamrLdOMZaOPioQsMsO5BIY UFDSCwgXGNmMCBQQVJUSUFM IFNMRUVWRSBHQVNUUkVDVE9 INMqtLpWfCytbQZTwQ1VcUM QcJGMOCZnRHUsAQV7KY10NP JYTPWYMBP0TPawZNBfwUGUd MSBDSFJPTklDIElOQUNUSVZ EEPtUD5TSVBDSP2ovEHDfY7 QiWRZsS1GlEI9fW5HkZFOkC 2LgSIQKSWkABLcCEITZE6Dk SEVMSUNPQkFDVEVSIFBZTE9 SSSBPUkdBTklTTVMgXGNmMC YyDJFhDHEDGJMeA6AsTQloD COSOXAZUI7WMFtGQuzcvQTx IKSrW2LrFO5bM2FlVLJeZ1L bUQNDCZiWIVzGEKHBK7FlOD 7HMLTMNX4PTKZQXBYNMYtQS 7bDPXMIRQADRBYFDXBoXJ9K HVfWZdYXF3lnyFFrvKfrrwG qBNlcr7DhCMidTZQuYJ5odF pgYOXqFG9mDHRiT4ptgC9qp aa0PqAlEJRvEjY3SWJydzQ0 Dxq9JPYrXBknr7qcn4SoRSH qZSg1eSocOnAyZCCbk2sjfk BcZmNoYXJzZXQwIEFyaWFsO 547h0yzp5nypkPckGY7KTSe XZT6NTnpbuDjwlD0XXqyxOM xVmI5BAvotlUlSLzegtJeyy HyByf7TARcC135PVI7lJmyh 5bySJC5WTOyTRZdVfFkJi0h lZYeM762VRWvCVIXAVMzhFs 2SGCtiqCmktUolFVPb938Q4 54z3dpXJBkrpAscEcIvesmh 9yxT710HPBljIXbigKmIoNg WQNisURamOY8ZDLbMH0qtqe uDHclWEwoTYCzgxL9PJHrmA WqV2EmWCBtPQ0ttcjpKIP6Y CwyJLUsUKF3GpFpSBNef8Iy yts5PyMlfl0xnv07KFQ4f8E anSpySMK4VGD4MyQqUw9aiX IwBUNfFU5wGhQysROsJFWdz d39nDkwLYkjGAM0WNUexoNr f9Txb9heSvWidyPnZ7bgO0S yZHJoZWFkXHBnYnJkcmZvb3 Iah6SrhBDbfMz7z7anIVYwE YKxlUsfp8wwJYI5OVBqjYLy J3dwrQ4rLFTzLO0zvgmud2v gEFffHUqsCGHkfDA5koJ1VT RrrNScZ6FmbQ7oABNxKUdzS JWsbss6YmHoMq2zkNQhvHsf MFxzYmtwYWdlXHBnbmNvbnR ccGduZGVjXHBsYWluXHBsYW luXGYwXGZzMjRccWxcbGFuZ zEwMzNcaGljaFxmMVxkYmNo TACjTJriQ3ixQyZqFuLiPon 4WWPrtKZoRHKdYat4BTHuaQ NiRAMPtQavcX4hGELvkSlzx W4wwXY1TBXxblEupIURzF3m QDIZyN8iYuE7InTjPqU4AGV yNDlccGFyfX0= CPT Code(s) (test code e6yjoGErQIPnrVA8LmYuDVM = 3357) hi1fys8MllEGcgLVsPSvnhU PjldTjcg77oXA1vE16HE3iN HLcKjV7DKVozdW2Ekl4KNOp DRZedYVyY018a3btg8yurpB ytNM5lCsgCWSvlcgbScR1GF gdGIMlurxjVVn6OFerZQOsq KG5WUBkkYAoW3HnBPBxKR1d mty5HXB5PQgpLOFrFpZ1NIF dkRLmZAWkhBavNGtmf186IO E4NjDaXLUwetWnwVkkxK6xY eWnDTG9FYVxYEavZNS7 CLINICAL HISTORY (test q3eiyZFcBZAsyVM5KbIrNKQ code = 3356) de2tpf9GxvZLxpEFxFOouoL KuauCuaj88mZB2fO80EU7iK WAiHlX4POKlzgC8Ave6MJDm KQJekECaD755r1cqg3eqfxB kgYA9XUFfAFUnW9ZjKZ5lJY KeuRPmY41wlOIyVEG5RDHyR YGisIUyEOAiCVQ7ISAysKRl I7nzHWNcNJ7rfxmiRDlgBOz eRWZuuBD9DPWabAPxN0TmBF MvOTzeXAXhdak3HiDbGp0et GVyeTcyMFxwYXJkXHJpMVxw gYGkpbngxiCnLHByZZJWy3A hzDIbz6Dib5e2tJvjWn5slG NiQPVdRVewOOA5ADUyYgHhD GBlESvxQZR7kPYvGWV1dR2g apQjgHZ9BXn5PFYxckB6YlB sP9iqrtM7DHDGSiO1wcQjaM l9ROBdjTRwpWYnzH0eVFBvg pRWEZUJUVYJg54zBW5rdSGg JHhwFCH9TVMlo3Tid5BmmCU yfQ== GROSS DESCRIPTION j8kotFKeVSPbhPIGVAErS5t (test code = twkZkQANbyQYbL2NylshuEH [id number]) ilOU6jLW0koLkqcRLedRIgM W0PMJRrOgAtQOTtfZGstsDe OvVeTQHvrRHzhXG0OIGaKS8 edaemTVkzJPbhKNSkdzX9SC UtiTHmW0AbXNLyTV5xqqpqX LI0PEanmM7lnsSBMwesCe5b dHRibHtcZjFcZmNoYXJzZXQ fHQVwiMnzFXPbCEp0cB4TGk coTEM2TINFOrvtUFYeAW4Yp 7elYPIvqUUxOWQ3XOpbnWLh LZBaMZAcBNi0DIBdXZbnjOU jIE4jpZusQfkaeZbfk4UupX BcXGlkIDUxMDAyIFxcZGIgI P6HUcShBFK6AvzxPVIaHCk6 EFg3HF0MCeEtXYVzAWe6Myf 0QAOzINe7HTpzEZ8ZCHFrUR h2ANZlHtL9LZBaLNDuQRTsP iBcXGYgQXJpYWwgXFxmbCBc OP4zwGkwaTHrgfVCCmXFhP3 tYWNoLlxwYXIgDQpcZXBpY0 3vd3RMo6HjKG2AXYq6gsXfe pfrgI2cZSCxoaIvRPofkGWy B9jpNgRhIUPCAJOaaMFeEMV pidLkb3FpNWzlhoIcOWCpcZ RtQAStHVXfWBHsFH31Q2Qet eLcVVglQIImUTWozF0lCJ56 bWJlciBhbmQgInBhcnRpYWw lG8HvwMBuP5OhnPlfCBjwBB XeLfPkJGF3DAVcKYM1XRQzY ADjiCG3bk1kcOEblMStCSHr cwQzl87gi5Wav4QtnNOzoBI 3aXRoIGEgMjAuNCBjbSBsaW 9zYOKbo5UydWjhTDypusRvA TPKgWDri2Txh9NnXBzlNVVk tg9cmP3eVOOcnP4rwZznMW8 mDDd5xAXdHN3bXo9hCOLvWW BjrXSwzS9debKpycCnaNGuI JLkhA4lhxP9CSTbVEQejDOn NMHdmhgnZKDqW5TsaHlfAFA 8xQzlnAU5w5CxXN42R46yXI G7dXM0KRIek5DkFPjyXW4wm v3yeANnlVwiwTJqc5aqfd7p SL3xDXSha1BjHHCyQMfnb5k khcTyOJRyKCklYT88qYFzZN IoSDUFAGJiMUTmovWfiBl8D PNcKKT3wI9mvkBfrbZyr3Xt iVl8lDQlULqvNVUeVWOfEwa noV8hEGcloA9yULUfpGLhIP VyP6FwqZwukinuWITaLRhVZ BuYJ9YYGZ7BKBAqLLeyJRHy gIUSCOS1DR4oOInryOObigu bEKGqB8WyG3ExcmKrxWEhBE LmbrKpm5zgFBM8GUQytPVko SRcQoPmAyxtEFI9QXwpt2rs RXQ0HXMniAAlqSQsRPlrBfH tZfqtRPGlR7CaY6VqmuE3WQ p9 MICROSCOPIC x1otwSGoMBKiuPZ2AaMyJHT DESCRIPTION (test code oo1akp8SbpFGnaBMyYIqqxC = 3371) NndpDiyv55iHO8eR62QV3xU QKyBvY3ZOKkxsY2Cke0VZVp PKTscGCyV362x3ejy4ovadG aoVH3lVimLELuurdaTrY4NP zgSMKiwuzgCPc4JMveGVCme EE1ASYwtRCaQ1ChDDJzSO4v ohs3OPS3QGwoTAJjMeA1PDU rpTScSRIagKtnVTrjn744MD Z9GuGcFRArkqFtsSbkcT7jY lBzVHSFUMYds4UfOPOlLIIx clxwYXJkXHBhcn0= [facility] [id number] 09:07:26 Test Item Value Reference Range Interpretation Comments Case Report (test code Surgical Pathology = 104) Report Case: [id number] Authorizing Provider: Santiago Jones Collected: 01/29/2022 09:30 AM MD Jose Ordering Location: [facility] Received: 01/29/2022 10:12 AM SERVICES Pathologist: Jose Beal MD Specimen: Stomach, PARTIAL GASTRECTOMY DIAGNOSIS (test code = l1rwkNRoRUDoj8pcQSHoxAA 3220) uZzEwMzNcZnRuYmpcdWMxIH tccnRmMVxlcGljOTYwMlxhb cLtPCDbsHPsT6HpzxhbLGcp NG7hZY6rwRakbPEbvEAjDPT rUxXcp7lsb760iMOji5xcEB PFocrznBh0nSgzS47rz0P1W xafI9iuFXZnEPojGSKuHCtl zUQhJDo1LUQxrQXhbiAkDhX vGXPbkFPwfFC5NBNcES0qqm weCAxjBYmoABAqkkN0WICaz PFgD4QxLREoPE5ouuwlAUR1 MJzzGJNlGPJ6ThBzDFKac8O jytf1CzOmbMAaYPsiuLCqkk xqoeLiMVImOMdhYiTaX1DYA UFDSCwgXGNmMCBQQVJUSUFM IFNMRUVWRSBHQVNUUkVDVE9 OTCkoAbRjYvlmATUxQ7FsAD ElNVWITElJKRlJYP8SO94JO ORFXYUANF8KDspYIEgaMSJi MSBDSFJPTklDIElOQUNUSVZ IBOaMR1LQHVIMV3nfONEwF2 RoWAGnV2WtRY5lG6HfXWNbW 5PpAKHXUSpLLTsDZTULX8Pa SEVMSUNPQkFDVEVSIFBZTE9 SSSBPUkdBTklTTVMgXGNmMC LsEIQfDLWAIQBbP7WxCEsyC VDVMZYUPS8RDTmMWzzsmDGq NCEsX4ZfTQ2hJ0IeBMLpJ2Q zICBODQsRWUxPLBGVO4HuBS 0BUOQPDI8NJQBFHRNPLNnCF 6hEZNPLWSDQDQMEHOZlLD3D LSuGGtONU0crjSFkxVqumnI fWJval3NbNIwdISRlNJ4axD hjSSXqNS0iWELpK3dsfI5ix if9MnUlXLRfXaX6WMIfvnW5 Aqp5WICbCSzlu3mzr1EcOLG uJAx8sHmdYdOmLAEqo4iess BcZmNoYXJzZXQwIEFyaWFsO 794l2nmh7fuhbXdwRO4IZJo KPU8TBtqmuZmfsB4BRfezYJ iIzQ7ZWxnzeQqSSxihlWqqw LpOte7XDDgI177LKX1jCuxs 1wtUJR6OAXaPJRcHtRxDd1h nOMbE692GRJzAFJUFRSyhAq 0GOYffyXxjtIbtVWPb516B1 46t1qxECCrpdOkuMvLeuoln 6grQ424ABFlsHGceeDeUqBn KQAuuVOaqJN2HLNtJK1gxbo iJFagDQraTFZzmrQ5PUUwmS IcW8SlCJOzHL4gcjhqWPV2T EhoTHPcWCY4ArKlDOHlc0Eq nkt7NwRvai7kwx29WJS1t2D wiQeeAXG4ALH3DlNaSp5hsA BlWRQmYA9sVlCulJByLJVyu d07cJujBPnyWOE6WHVekbSl s1Kvp4whQeZmucMgZ3xvI7I yZHJoZWFkXHBnYnJkcmZvb3 Zib4GegRTqcRi4i1ouWMDwZ HQzcIsyo6iePHT3SPCzpSPb W1yqeX8cADWpEF4hwvogc8d mPRxoBSehYKQssLU0vvH5QU LfcYKjE8HxgQ2iYVVdANimA WZavsg6CbUfOt4keJIqfZaf MFxzYmtwYWdlXHBnbmNvbnR ccGduZGVjXHBsYWluXHBsYW luXGYwXGZzMjRccWxcbGFuZ zEwMzNcaGljaFxmMVxkYmNo RVQwKLapU9gyAtQaCbBlWxc 4HYTkmOOaCROnRrc8GTGimX YtTRNGbMksiJ8iREHtwUjio W0szTF3NRLeduQayHMIfQ6h WAKLqC0oTkK0EnRoVqK9JQM yNDlccGFyfX0= CPT Code(s) (test code b0fwhJBbZXNkjLA0CfMhTYB = 3357) nw4oqz8LwzKMquOPrVYbqoI OepcVpee23wAL9oP43KM7iC NLoUdE6PCSqoqQ9Igg4RNIf OYKwiMQiX362j1tlm8hnuuJ ysZV7vSdqWWFqehgyOlA7FW wfEAJaksncTXy7KBezTKPwr KS2NFDjnOJeO6KcBHBiRD9h yro4MLD3CPtzBKQwDyM0CWG ybGStZVCrkYrzVOkhb692SO N6IgVmYMSuppEjrGtomP4yV wFyNFZ1JMUcXInxZCM9 CLINICAL HISTORY (test r0ytwZOtPZSgxVC0FbLaVFY code = 3356) bw4eya7AwfNGjfJNbEQolrQ YdrbJtam38wRA6qD56GC7cP XRsXrZ6NJTtmqV3Moc4ANWq UKEjnOOjW620f2myo0oraoZ ihWM0PAHhNGAnG7WyID6rUQ JqkJQtK26suZTtVCR1MTOkA DTjbDMbIDKgJCP9NMLxmWIi M3xaCLMhZW2fxxodLTdvWJw fHQIuyIS1FHFnrQHqP1ToOO XuZZekSOIbfkk2SoPoZj4hl GVyeTcyMFxwYXJkXHJpMVxw lBXspuvhazDaFVEyAMHSi9W liIQdf7Zcn0w7uXawZe6ngY YbWDJjNQiqAAH9HPCqLpPbM SJfMRwpACZ3gSMvKZT4wY9f byOwkDV7KHy0LUGvqpS9MkR oV7vcolP6WUZHDwL9vuOzgI d8RTVytRUvaROybK9rYOYvu iFQRAHRXWEZk64aBJ9qeQBy CYytEGX9SPUgu0Ksr3SnxEA yfQ== GROSS DESCRIPTION j4mnrSOuUHIosLDABDPqE4l (test code = npgDlNKEmiEEgU6JahfjhQR [id number]) qsKU2fZV3tqYxklFAslBLwX T3NNFYpNaHiYESdeYXgimZv AeXfWHCkaAWelHP1QBDxTI8 jywndMZhlUOszBNLihjS4KI UeqGCwI5EsQXYuVG7hprxnC UC6MOfyuS3ooiGZIscbQt9r dHRibHtcZjFcZmNoYXJzZXQ iHQZeyQdqOOQtUHn5jR3DAv fbQLD8MQVEUmzoCWOpBW4Rc 4akGEKjlEUwPUQ8VZsinGKu NYIdRJRkEMx9GQLkWZugmHA cUS3nyBveWiyccIymw7HrtG BcXGlkIDUxMDAyIFxcZGIgI E6DHlByLWE8HjohBIJwSAg3 EXb8JP1VMfNwCVUkFJp2Tam 3CIRcIDz6BZlhPX3WVYOrET k1EEVoUaU9RNTmWEGxTOUsF iBcXGYgQXJpYWwgXFxmbCBc TT7uyJbrbQWvcwSOEyKLoJ2 tYWNoLlxwYXIgDQpcZXBpY0 4mt1IMv2LuFA5OTPs1ipQfl fwszS4cDTQvesSzDJicvQAr O4dpDuFmOJAQYXOmaDWdPZR nogEcj6QxYRpwmxBkJVRcoT DwHNNdRJYcANYwKT81K8Tfx sXoOKyyENZeJGPgsG4jEO55 bWJlciBhbmQgInBhcnRpYWw cK3CgaVRlH8ZyxZioDQzdBL FkZqLcTUM7SYGrXUT7VMEjC VIwuZP8mr5vdKXqiSCzBYOs mtWoz05rr4Qve7TihZIkfRU 3aXRoIGEgMjAuNCBjbSBsaW 7kWWQxl1HwiPaqUHxbsfCzZ CWAmLWxt1Gpv6ApYMxtENEg ou3ldT5zRNEsiD3grNemYG3 jEAj9kYJmRT3vSv1lDLJhVC MpmUDblR0gcdWfkmRqpBZlM CYipA5brxX9LVUxXWNyvYEq XVKkcuhoYTDaR4PntTixQQD 1hQvuoKK4n7UtJG69B79uLJ C8mZI3GGXut4ImEWdjZV6hp v9qyUDtnQdwtDLqy0pkei6e JH5jOWDbu6DeGSIuIPsxj0g zshRvEXYuEFqjUJ05lCTyFN AqDUDFDUCjYXHmzuMguAz6M GZdOTI1jH7hnrKhdhFdu2Jb zSf2uWIdCMlgJWPyZPGwQbi aaB9qHUjkzW2kPDXywYEpER UuI4BwoNfcbgvvYLLdPEhLF FpPE6JSSB4AXSBwTXozRNNa pPMXVEC8WY5eYGvwdDOirrr xAIUmQ5FyQ6TulvRcqRQpSH YodrXps7piQBI4VJBajXWra JWeRzOoDxddTYJ9JZxvv6ay XIO6QYPtgWVvwVYmEVhpXxQ aHhmmYSFkE3PfV9LhikY8FY p9 MICROSCOPIC g6pwyIZiEBRtjXS7AuShEJC DESCRIPTION (test code ob0hqc4OdoKVdjGJfUGhrjL = 3371) WotfVnux77jTI1zR87JQ2aW MVaNdS9LSRgvuU6Aqx3LLWs BWRviHGfO552q0eae8jndxQ cxIB8nObaRDAqdpewKyV5GJ cbHPZxvpykHPc3KDyaNYGtv ZI8FFSglZEbV6NmLBFuNU9n wtu2UOL4NEoaRTWyIbB2MLA wfUJvIOPuxJyuIDssa902UK M3WpYwBGRnkjZxgBoshU2eN kNeGKWKUPZmv0MpXTKsRQZr clxwYXJkXHBhcn0= [facility] CaliforniaTissue [id number] 09:07:26 Test Item Value Reference Range Interpretation Comments Case Report (test code Surgical Pathology = 104) Report Case: [id number] Authorizing Provider: Santiago Jones Collected: 01/29/2022 09:30 AM MD Jose Ordering Location: [facility] Received: 01/29/2022 10:12 AM SERVICES Pathologist: Jose Beal MD Specimen: Stomach, PARTIAL GASTRECTOMY DIAGNOSIS (test code = [id number] 3220) uZzEwMzNcZnRuYmpcdWMxIH tccnRmMVxlcGljOTYwMlxhb iFsFJIpuHKvY1HzlkiiCYib QP2yOA2ltVdkjPJskJWqYVL xKiRwv0uaw483hEUll2crYN EIcimfjZm6kUfhY82ay7Y6N pbjN6riODUgXRsfDRMzJOkl bJIiWGt4ITBugEFjpjFgKvB vOCXacQArnEQ8MRHyNG2roc yxQEvbZZozJZAzywS1ZOZdp LDjT3MbFMZlCS9pazikNGI1 QNmzAZGqLIC0LzVsMPAuf3L ocmq1SnBvnZOsZMfdgUNxbr yavgQaWKTlFBstMqGoU7TDD UFDSCwgXGNmMCBQQVJUSUFM IFNMRUVWRSBHQVNUUkVDVE9 UWUhuDtUuZqupBLRsK9JyEL RzNWBHFYvWCTyMGN9YS15QB DVEMMDFUX9WNjwSCFjdTRBb MSBDSFJPTklDIElOQUNUSVZ JSKeUK4NGCZHRP7awNFXbX8 AnKIRgH0FpMG5kQ4VkUYGcC 4ClQTBJJFjHJYxLPCYNS0Vh SEVMSUNPQkFDVEVSIFBZTE9 SSSBPUkdBTklTTVMgXGNmMC NxUAWyKTQHLWNsF2AnQRmtC EXXIPYATG9GNUpDLiibiEBc DHUpF3HpDZ1xY5OtILZeJ2Y fEQKQEAfLPAlKBAYHX3RsKS 0VWZKXIJ2DJOWWWTVOEEyHT 0eSQYEFBDJYZESKVPApUE8R SDsORmDPG5zipFPjfOsldqH oJGhrw6YyXDzrEELbJO4joN bmEMEwVE3zUHOjF4axmQ1sp hk4QeNpAMYlHfU7AXBejjX1 Qnv0RVIpRAvxf9rwt0EyAKX jQKq7wMaaUqSmCTDuy6tcmo BcZmNoYXJzZXQwIEFyaWFsO 506j4hej8viuyLgjHK4BTOk IVU8DCsixdVqeuW5JTsckQC bGwE6YEzmsxKaXOrofrWolp GoRvm4ZXAdX283EQW3yHgog 2zpDOL4VVGgJTJgXbEdFv8z zSNxU097VMGbCRVZGMHogIc 1NZEirbCboqWwsVEVr831U7 12e7viNCNufuUvlKeAscmmx 1mlP877PPTmrDQehtUwRqBr YQAqwJAjdPR1ANTsSI1vmha gOPmuGDbiDEZyohO5MGQvwM FuJ3HmKXNeLI5fntelKOK0Y ViuCASfYMY8JfNoIQOzj3Pg sao8WgZjwd7agg89MQG4g6M lwXuzOEJ1UDR2FvWgEc4weX KiMEBxDP9wUyTrzTWuLSUux t28qFrrJYsoNNO6ETPkjgSc l5Jpi7xbAvOfwiBgO4wwZ6V yZHJoZWFkXHBnYnJkcmZvb3 Oky8AvxTShnKh8p9itQBKfV HSwbKdgj1orMWA0TXQuhFTb X9qbdG5cQWTcKI6uyfebj3q iRNjiXAugABSskMS8kpT4LF VvbAJsN9PvfE5kSNYiCKgxU JCnbyx2UdSnFj2dfYIqgUkg MFxzYmtwYWdlXHBnbmNvbnR ccGduZGVjXHBsYWluXHBsYW luXGYwXGZzMjRccWxcbGFuZ zEwMzNcaGljaFxmMVxkYmNo CCOvEWvfE7qbBeAnTxRcTtu 9JHOceXAwHJOxFpk2DIGpqY GeGYAWiDludW0aHARhwMcfa V9jyVN8NTYpzjCbjTBAdS0z GPYZnG4kRyW9JeByImN5UKX yNDlccGFyfX0= CPT Code(s) (test code a6nlaEBlAFEeuXF2IxRrWGY = 3357) qz5auu2KweHGffTOgJJyidD NerxHzpf29oAM1iX27CN2wF EZzDnD4YCWpbyV6Pwd3TSSg OZKozUDkU789t6lpt7aeywB yaRE4zQncNBSqxvzyJgZ6VB xkRLUhppbxQAv4WBnqCLXwd MB6SQXqsXKkF8FqGACqFZ6b mhb7CEZ7KObiKKYfKqX5QKY ktOCsBKZxeSylTTpfl213PN Z6RzIiUASnjiBfoMrglM9zN wCtYMA0CUFnBYfwDLD0 CLINICAL HISTORY (test q7dmpZDsAQRgrUL5UgWzCVQ code = 3356) dk4upa5YwkTQkvDTeMZdtrY YvtcWpst78cRQ5fU73ML2rU IAvMiA4TSLqtqH5Une4GMUv MCOruDHhL071v1fzd1jtfoI lwFG5FXUiUMBpA5VwTP5yJA CymTBpZ17veUByYAQ5QGFpT FQvgEMmFSNrPOH5UQQvgDEd G8sgLEHlCI4rexhbGOesGAq lRCJotIX6ZEAbrBGpZ4AePQ TqFMpvODRwugv1XhSxWn8sb GVyeTcyMFxwYXJkXHJpMVxw eXAnmhrhhcEmDJRhZGTWj7O mlNCeq5Fut5s6gPlqMn7jjG HwMWPjCYnpHMT6DQKdQhYyE JFeAEnkRLI4uGNzLIJ4dL0j zbUlnMA5THs1XYVpvcA4WnM tD8kevkO3HKEEPwQ5lwPqvP w7CKBhaRAmgMEvjZ8iDSUot mNKLYLJPWUSv99fHC9wzZKb NCooZYX1SKQzy9Mld5GiqYA yfQ== GROSS DESCRIPTION t7zgdOUiNBDcbQRWMFJyN0q (test code = orkZvFSHqzGKrA7TvrjxcGN [id number]) yvWZ0cME5xjFcebTWucCQeI K1JGYIhZsKaMLSmpHEelbQz QhPyDSPfxFDfkGH7SNMgCQ6 zeqvyNVrsYKzvTOUpwnF5AA CqwPUaX7FkUWWjAY2tqpkyQ DR8MVcmiC1rflOOPavjDt4b dHRibHtcZjFcZmNoYXJzZXQ eHKDubBmjBNDuRBs0tZ6QKh mnIRT2VWOQWpuuLSOxAO8Sq 8mpJJZffAAyICB6BRmuzCUq XGBmCDZkELn7SGIvKBolqJD zPI1sqAxbYadvtKkil2DhyV BcXGlkIDUxMDAyIFxcZGIgI B1UCeQbDJC3OvtiDKQoVQx3 XKq0BI6EFsCrDQLbURg6Way 8XNRmXXi1DEshAU8RSEEwYE z0YFZkEaY1DZDlZLDiQAObU iBcXGYgQXJpYWwgXFxmbCBc WZ7irGbaiJVwpbSCKoBAiE9 tYWNoLlxwYXIgDQpcZXBpY0 6ay7JPz8OrJR9ZBAq6rzFkx ubnqK7zDMCeahRnDVfwlUNs O6sjQmShEOOEANFjdRBvDHA ljeRvy3XzQIiqduLmGTJlrD MpORDlVHTaRWFwZT43T3Bcw dBeZRnnUQYfRHLjpH3kET47 bWJlciBhbmQgInBhcnRpYWw vQ9OwzFCeI8WqpJuiTHgpIG FhYjYxXSW0WQPqGVO9EJSmA XOenOJ7km5iaKXotJLcLWNl ijLtu20ij8Gth6EcqTQoxFG 3aXRoIGEgMjAuNCBjbSBsaW 5hAZTsz9MznBxfKDmeipElT YVSsATbr8Sgk4AcDTjnCNSr so6prC6uFLFquI8gvBkcZJ9 yKWl1xBOoOX1sIz3tVCMwNW JxqQJblG4bghMjwvYdnMCuV OAujR4gbeN0NPTkNRNfjBOh AWIdtdraSEPkR2JmqGqoALK 5uEeehUD2c0OrWG54L18sHO I1lBG5FPOjy5WxVGgjSL4vb v2boAMibYfpwWHcu3giuf5w TM5yAXWjb0TdFDTkRYmjy1p rcgUsGLQoYBctAN08fAFcWJ VlAZSTZNMyUKXremEztSt3T PMxWQQ2oD8xceZtlqZxf6Sz wHd9oYSeLJngQFYbWKJlYfi xvC3zGXwnyR9zWQQovQSvUE CzR7BphOztekavSRUlEVeAE KpCB8EAON1AJKGmZNgqKZFd xPFIJTV5JZ6jZSklaOQmtvy yTWTxA5PqX4PnpxJmsGApOV EzwoXyb0qbNWJ3HRScxROrj LKyZaDxScqbMTG5HLwqy1an NKZ0EMLexTQnfEVnBEifKkC wPfquPQHdV1LpT2FkalS9BG p9 MICROSCOPIC f1rpfRJyDIDaeSU4PnZmBAV DESCRIPTION (test code hb8lev4NxvYMddWOoBChupI = 3371) OavsElji96nBZ2eC54ZQ5uY JCzOgK7KNTktgX9Ogm6ZWCt YSQmnSQzZ086h4fzg3riujZ qmXB7rDyiUNWmcnszTnZ6DT dxRBYezlwqVYj4UYxyWJVyl XV1GVGxoLYfL3CqARClBL2l ocb8QUR7OLcjVDLrHeB7VYT anQOjVODyqKflVIdwx536SK U0YfKrBHThfdTgvFhhtR9gE kXjHPLLHCYkm4AnJRLaEXRo clxwYXJkXHBhcn0= [facility] [id number] 09:07:26 Test Item Value Reference Range Interpretation Comments Case Report (test code Surgical Pathology = 104) Report Case: [id number] Authorizing Provider: Santiago Jones Collected: 01/29/2022 09:30 AM MD Jose Ordering Location: [facility] Received: 01/29/2022 10:12 AM SERVICES Pathologist: Jose Beal MD Specimen: Stomach, PARTIAL GASTRECTOMY DIAGNOSIS (test code = b1zlbPGrYGCza4zkRQRcvBF 3220) uZzEwMzNcZnRuYmpcdWMxIH tccnRmMVxlcGljOTYwMlxhb qBgMTVxeEJfZ1FaspvsNJfv GJ1aKE9krLvxvYQwyGBvOGZ eCaLsd1kjq578sIUnz4zpZT IVmwvvgNy3kStsP14zy1G3W wkgM1xrXNJkSKelDOIbXDmq pNGcRFa2FQAchGHinuBqUmU dNNSyzMGkbAF4CRGwAL1njj ucERbsUUdjAZKqanE8WXHqo SIpB2MtLOHtRT1zbmqtDLB4 BUbiVLYkPCL9RhAvUMHqv8F wbkk5EcDqjYCvHVaqhOTspk oqubDuEYCiXJkkEqHjA9FBJ UFDSCwgXGNmMCBQQVJUSUFM IFNMRUVWRSBHQVNUUkVDVE9 PSZfmLdFxNgciVBOeF7IkIY YtGKFJJHmAKCsNJC1IA87CP BKZLGMMSP1NPeuUTCtrODFp MSBDSFJPTklDIElOQUNUSVZ IPFgZT4COZPUYB8zlPJLcR3 VrDJWwB7JjDO6pQ7FoVNJxQ 3RvQTTTRBfDBLmGIMSXG1Pw SEVMSUNPQkFDVEVSIFBZTE9 SSSBPUkdBTklTTVMgXGNmMC VxYIPcZWKJPWLpP3HcZZszG KTMEJJFAF8ZPMcWOxdjiLLr JFFfV0DuCW6yP1GbYIHmF7L iYFYRKLuLSDjEUGZHG4IkUC 4FENFBYS2VMVREJSMRFNtKD 0pZFRCHHKSIXGIWLFZbLE7H WEjYThAPT2hbtCAthZhdvqF wSBhyu9OqZYrwLNLwPT4ttS nbTAJyYG8hWYTjV6qmdY8wz rj6SnYfVMXlVrC1AJFejjN0 Fya2APJtHNtau8nep1VwVCO mCVj7jEoyLrLhUHVcw8jkdc BcZmNoYXJzZXQwIEFyaWFsO 132v1wnu7rkgiVkyPA6PNQy MYA5HUfwhjZaibK3BUplvKW jPyC5OVcyanDaRXknxsSktv FhBgk7WMAuD156ZTZ3yTnym 2exPPV8OIHgXECqYgHyGe2o tMIoG438PBYwDBAXKORpzZd 7BHKidwQoulTfbTNGw905J4 11l3ltNCVkdeVxlYaYnzydm 4eqR265SJPdbXTfytEoShUx XWDacJXexDD7WBYmIV6cjvq qPOjeNRltKLPktwB0CLZjzQ IpI6OiWJDgOQ8fasunOBD7Z YjzAKRpBTY0UeInFCUdw0Dd nxu3HmPsxp6bph56QCY5p5T luZzoOBS4DSY2PiPfZb1kdB RaWTSsUX4iNiNpmWYdDKVlb k66gUnhYTdfAMM6GYGhupTt j0Vys0slKqQuqlHiL0alE5G yZHJoZWFkXHBnYnJkcmZvb3 Mnc2XrgWRehBo4m3koABNmW UBzzImkr9qbDVQ1JVJqmAUx X4cztB0uEMSkGN9rmkrms1w bHZrrTXpmCZKndWK5nnU8QV KmaVLlJ4HkpJ0aTYBsFCdrQ BWmuxv0EhEuRo9klIQgkVaf MFxzYmtwYWdlXHBnbmNvbnR ccGduZGVjXHBsYWluXHBsYW luXGYwXGZzMjRccWxcbGFuZ zEwMzNcaGljaFxmMVxkYmNo QMOzXHpoK6viCkQwSzBmIlb 5UZZiwAYxBDPrVoa4LKGsqU BxSSDIdBjfaT4bQBOtbQmhj C8eyMY0YXDygfCdfFPDoJ9t GKEAvD7oYjV6IfFqCxH8VQY yNDlccGFyfX0= CPT Code(s) (test code j3jjrQNdEJDcpBQ6KgSjWZE = 3357) qb9lpy5VanXBviQXsUHiamD BnroHhib64aXJ3zY04VS6oX FJxTvW5LEBzjvX2Umh1NYOj FOWtzZKvW034u2pcp1gbkxI jwVD6rLzgMSXlmpmjNiM8WD tbMIOqqjavPAz9DGitJLXte PC3FOAbeWNrL9IfYUZwLZ5g wza5NMD8WKvuBQEfApM9UYN phYGtOMNdjPszGGshh883FL U1KpLaVGHycyNnfEulkN2wS kTlMPP8MOHoRXyrLKQ2 CLINICAL HISTORY (test d0pmfQVzGDCkyYM3DhZlCIR code = 3356) yk8txp0ZtoJDteUKlVMqaqP CdikAnon24bKE8oU75WO3hL PMlOhU4KXRfdtY1Fxg6ARQt WQBdsVDyJ820i5jev8xliqY kpJG3XGLdZBLuI0NsNX0jGY KhuWQuK18xtVJzCMG1SDHmZ NNxhWIqCAUdIVF8PPTrdYKk Q9giTWDoWP0hochpVDbjOBs rXZSfiXU1NOUvrRKvC1RkJY IzJLsmLMKjeev7VuPyLf6co GVyeTcyMFxwYXJkXHJpMVxw iKOerszxolUbHXLlXKKXz7E dmFMkj1Flf7u8nQzqLk2mhR KuMPNhRPlpADO4KXTwGlGoZ MBjDHsvLTT0dANlQQA3mY7s jkBvkRU4UCx4OFPnuoI5HlL iW1ddrkI6POOUTfS2quQhvY w2QELypKJjkJFpmE3fVJClu nHLAUSXMQLJd02uDW7wzITa QRiqFOK7OTYvu2Gtz4ZxuEE yfQ== GROSS DESCRIPTION r9jviKKyREJfeABMHSFvB7z (test code = fslHlKLKqaVRtR2QxsmeyNR [id number]) eoHC8sFV4wpBzwuUKsoWBcF Q5EXAEdGyCpYOIgtOAhhxPu AgUhJXVooVPbfRW6AIZtWE7 vwmhiCFhzGRspLLJzmcT2XE TdqRKlA5XhHOWuEY3eogcqV SQ6BGnngZ4wnoBAFrozXj5k dHRibHtcZjFcZmNoYXJzZXQ fLZRagVkyYXVaXFj5lD2WFn zuHJH0RTYCHzqrCUGtAR4Jv 2evLBHxcOThCAC9OUpyxMPm PMGqSTPhSOa1MWUuMRzssBW eYI0eeLslDlaxtIoaz6YimF BcXGlkIDUxMDAyIFxcZGIgI O8VKpUiVSZ0ScnyMBGaJIr4 KBh6VE5JAwVgQMViXGv3Lls 5RQErCVj8SMtsSC2MHSSyCX f0IPGmYlA5WFGnJKBaTQFfJ iBcXGYgQXJpYWwgXFxmbCBc RH9ytHeixNCumxYLLnTGjI1 tYWNoLlxwYXIgDQpcZXBpY0 9li2LZk0CjQI0TNTc1sqBgk uwtwN2aNRRwicMjQKpzfDIw M7nrIfNoUPQNGWNejEHfFVS glwTyc1RmFBdppsBtQAVigL WpJFKuRFWjPMDdAU77Z0Bqc bOvBTgzMLXdIJAgkA4vHE12 bWJlciBhbmQgInBhcnRpYWw zM0CshJOxL4KeiKacWNuuDK HcUhVxZQV7RFGfCEP7RHGnN DJzqKA8jr4eoCCkhCMsFBQp brVch77vg1Vnf6TjeMYknIH 3aXRoIGEgMjAuNCBjbSBsaW 6jXXWif1BkoSslWEbjklWdI NKQiKRhb6Vpp6ZhRCfeOCHp zu8nvM7bTVHtrD5szWicUW4 qLFb8oCFkBF7mUm9pQQZhBS ScrETqnZ1jjgGalqNpjUAlW QQncO3olsM7VIIjIBAtyDKk WYUhakoxXTNjX2OmjOtaHAW 8qNrqeEF2v3PcIR57G25nHN Z1oNZ7DNPgu3MzKCyaVW5aj a3iqBWaaKrzkQIxv7arii9g FR3kJJBgf0NqPCAqADwtt2y zgpJnCQHqERtuDL20nTNjVW GnLDLKRFGuSFScnuFcxOm4C WKxTEY7uL7xogIcspGjo4Qz jDp8vKUmAKlwCMIwUVYwOye xuX3wKJebrO7fMARdiKUhRT VaG2AgkQelehrdVKLvYJvGW ZiZR7PSXB5XJAHbYTvaMKLq zQFPQPU2QD5wSKoxgNFtupt rTUYvY5FcP7QtwhSfiRYkWH HcbhNey4bkTAU2TXVhtQUty BNdPeWoRrayUSD8NKcqx2zd TLL1BCBanLPciMGiXRkvVnU dLsaeHSZaS1FxU3YgwmL7RW p9 MICROSCOPIC y7trmNCgOAFhaGA0MhMdDGJ DESCRIPTION (test code xs6uil3TucQZzyEQdBLuxlA = 3371) LqpxXfft73yVS2rE24TD5wT WYaJjM8QJLindS2Nod5GGJg IJNssNGfL184a6wwz1dghpF dbMT6vTvtNACwwcepCiE1PT jzXQZpttsdNXy7GFyfIAKib QP1YAFnxMHyG4DwTWYxLH3t wrj6ALP9QVnlBHRcBuH4YXV ejDYpVCXjpCwtWVxrv364IS Q3IhEtMOJmmpUlxEzaeS1nA tGqIIFGADOye2AyGYNsYFLg clxwYXJkXHBhcn0= [facility] [id number] 09:07:26 Test Item Value Reference Range Interpretation Comments Case Report (test code Surgical Pathology = 104) Report Case: [id number] Authorizing Provider: Santiago Jnoes Collected: 01/29/2022 09:30 AM MD Jose Ordering Location: [facility] Received: 01/29/2022 10:12 AM SERVICES Pathologist: Jose Beal MD Specimen: Stomach, PARTIAL GASTRECTOMY DIAGNOSIS (test code = u6elvXJxBVMjm9ixSPTqiMN 3220) uZzEwMzNcZnRuYmpcdWMxIH tccnRmMVxlcGljOTYwMlxhb qIaPPUidYUnJ3WcifgsPVtl LH2uBK4uuSttsYChvGGsNKF dWpNig7rcl089zCDya8fvGA GFiwccfLr3cYaqL95li2Y7P hlgB4yfAWTeAUlqCEUkNIil dTJwLJs4JFWooQXcwtWwAtB sAOSohSCdeSV7CISuHL6wcz ruNHsjQTowWUSkfuK0GRKgc INhZ6UtYXFiEB3gpaluGAU1 GWeuCDBrUXT5HdCqGQIok7B cqvi1KbNozDViXUjvtTPctj zzxrKjCDHwPUzgXyFhP9BXC UFDSCwgXGNmMCBQQVJUSUFM IFNMRUVWRSBHQVNUUkVDVE9 YPJzkZgQrVrnaBTJrH5RgQU UhLVCTYQrHYOtBJK8SX34JD VTOYWMSUK1KJvpKTCbxXJZt MSBDSFJPTklDIElOQUNUSVZ AQScOP4NOPTFHU7xsHYKoA6 AfBVExI3KgOW2wJ5YrOIGeW 8ItBPAQQRqYWKqAROGEX3Ac SEVMSUNPQkFDVEVSIFBZTE9 SSSBPUkdBTklTTVMgXGNmMC PvRJPpLUDLTCNfX3JnOWyhE SAHBMDWSZ1NMXbAIwjrjNCx ZONyA7QgWO2eE0RtAVDrE6F yAPJPUQzEBYjPBBXSN7CsTE 8LEFAMRY1YTXVRZJYLQXnTG 5aZEQOHDHXXETDRBUSeNL0I FHvWYcPPG9ihcNXksJovjmY qPHmtq7GbZVcjNGXpDG2ktU zlHRCaPK5qHVCqO3ijmB1zg ox3MdBsQDLfOcD7WGOenrI4 Fxs2COHtFBeoy8ihv8ZdDGY sCGh7hXneNbAvSWZbm6xkkn BcZmNoYXJzZXQwIEFyaWFsO 993s4hoe6rlfhDuhCV0SQQx KNW2NAjkjfTyzcQ9NAcwjQW hSzF7VZxysiKtMZvdtsYikq TpFhs6LFBpX395DKH7iUsoq 4jeDJS9CJNdFCNsXkFvAy9e eCQsD724YRBeVNLWDXNxjAs 1SYCdwdTvblApyXNGt072I2 73s1rrEGYcmzPdqMbOfkapg 1rtV788BCWyzDGmqpJiQvDb PBSizGDmsRZ6PUMfVU2ipdi eGSbfPQefNSTbfsT3WYCjfS JwZ4SlTFJbOP1obnlhXYQ7O VsjGAElVWE8HyZlSOEyk1Lf edz0SjQazu0tkg23XGL9s5R efVfpAUR9PQX7TvElUi5qvA ExWJUdFG8hEjShcNHtEYWqe x17oNukIZeuHIQ0DHLtrtDf l0Kog3wtBzLeetVtP3ntR4B yZHJoZWFkXHBnYnJkcmZvb3 Tdr0UdxDNgmJu5b9eeKGQzR HYyvVqkg1ioNLN1KAWyvJQy T4fcxB9yIDEvVZ4jnigxn4v qRRbhLDbsNROouWF6xrP1AK UpiRBxY6IqjI0zVIPsHVwbB HNzlkv8MoJyZv6pcPOrePou MFxzYmtwYWdlXHBnbmNvbnR ccGduZGVjXHBsYWluXHBsYW luXGYwXGZzMjRccWxcbGFuZ zEwMzNcaGljaFxmMVxkYmNo CFCyWIafC9cpVfBgRyHjUpo 4JBZkpBCoAYKwWkz0TTHxeV OhNLUIeZphsK0cCYPxkCtwy V2fwOO8YMNdkiGdwFRSbJ0y UAPCxT0uMlY4CmAiYkC1WIF yNDlccGFyfX0= CPT Code(s) (test code e6tkwGSjIQRoqCA8WnYsBTT = 3357) yq7tmh1XgiHJgtJZiULwwtI VfgdEbrs31cKR2cV35KQ5hS CEuBlM6ZVVqjiJ7Rqj2CPPg VDJuiDPgM980t4ueh2vcnrW tqWV1eSeyHRTpqstgCcG3LE dtSPOnjeljFHl8FOtfLDDjq XR2EYQgcAPdE2RlXAClDZ1q gup5JQW3EUdxJYQuZsC0OVK zlRVyYOYecTqsNUyyq454ZM H0XkJtFRTrwgIyzPkgaD3pD jQaYWR0XMMjATtfZLI5 CLINICAL HISTORY (test r4lwqHYtIIOkwJA1QzEyVUK code = 3356) dg6hio2RbaNGciNZxAZulkG DgmaEfem81fDM4zP44SS6jQ KLcCaV5WBZjppY4Kve6TYYd XFXqnSDzY400r4lgh1jzsnO adHG0EDOrGSOmX6QuBK3eIG RhjIUqC00rhKWjEBC3BLJsF WXsdIOzFWMqXRT3SYHyeZAz C5vnFPCtGJ6wbbqjJSlaVXb nYCRtsLK0GMBshIAaN9YdHZ WdRTuyOXJjjoc5BvTvEa0zk GVyeTcyMFxwYXJkXHJpMVxw pISytwffeuBqLAQvUMFIf0J chKUqj3Lfs2c1hKavAe3yaS OaSHLdMHdbBWF5EBCeIlYxN IDgQWdfKIE3lHWbJMP4mR3t lsBhqMQ9RIv8SCXnfdT7YfW vC6rpwbW8WAZCWoF4paDfpN f0RUMlwDTwpUGvhJ1oGLNmq nJRUEOIXCMPd71yUN2kiNPj XTtaEZW9HGHua9Lzp3QpcSQ yfQ== GROSS DESCRIPTION o9cboXVjIWVyrQQPFPLxG0t (test code = abrZrQXNwvCKlM2RjzhiaOD [id number]) loHV5fUB7xmIiimVYkzFFeI J7JIIErQqVeLCFbfLRbsnWx LwBjZPZzkMLwtBL7ZPEwNW1 ugbenEBtxZWsrPKUvroM5JC IfiHMbB6DpKUBmGA0zjxzmO TN8ZYzhbU3mzxLNFymsGb9x dHRibHtcZjFcZmNoYXJzZXQ fBTCdxCifREQfXCi5mG0NVt erNKH7FWAZTfzfFNJpDJ0Yh 8cbFGXnhLPnILG7CFvdjQAn QUVyPZEtKYl9ELZcBZbaqJT cRB5ahTelFetfkMnjj1BvzH BcXGlkIDUxMDAyIFxcZGIgI N8KPxLwQCK8QyiuPQAmSVi8 VOb0FY8OXnRdLUTwTQy1Gbq 8BIIhYZz4CFonDM4VTRNbTE k6CNIvGhG5UVWwVDHrKBApP iBcXGYgQXJpYWwgXFxmbCBc VM8jySndhRSkshCHKgZJfH9 tYWNoLlxwYXIgDQpcZXBpY0 9xr6SKy1FnCK7ZYId3duTgd rwfaA1kZFXtsrGhDFmviPKe S2srPrWdRTKOOUKhxXUlZBI fqgQhj3PfYPfokeWmGKJvyL MfUAQyAENzYLLtSW11T5Tbm wQzARvrKPPgJZArvF8gBS11 bWJlciBhbmQgInBhcnRpYWw bS5QpmTRsI6OceAizDUxpNB SwUnFvTOX3XRVbQRN0UDJbB ZCjeVR8ri9fxJWztFNxPGGl swRrf30ev5Kil2FjsOXkdLN 3aXRoIGEgMjAuNCBjbSBsaW 7aEUSgc7KwmAqgCJnokvBfD CYCkYMob2Rdr4IsPMywOBTm dj8tjC4uCYAktK8feCriKN9 iUDs0kMKjHV7gEa5tRQNqYJ LsvKYviG0svzNbucCvbMBlR MIodQ0rduH2RLFwILEyaJZf JVOwnzkoTYAbO0UzoRrmIFM 2kFapjOO6i9QtXH77I01fMC U1bML1HRWdb5MfTBedRZ4ee r9qeNTlrOlzqVTyo5lpho6x EB6hMFRml1LaZGUmRUpsp6z zckZgQIZpMWysSQ97lJYdGU BeBKAEIDRiEWAfxjQohBy4Y MAvWCU9oL3wmqWrqgScz7Wp eDt5aFGtBVffHNPcNKFvHpr zuK7vFIpucU3hFOIhzVYeWG JpH6DtcFhexiwqJELdEDgIU TbVF9CRCS5XIGCoBPazZCFm lYOYEPC0BP3dEUudyIMfsqi sZOUdL1OaV8PlajZhwZKgAX HutqSqi6qwOEH7YAOsnHXza RSqDmRoNgiaKLJ8YKxsi0sh UER8HOVvnKFfjNDdEQpxJcK uLzpbAHWvY5NpC1UxbkZ1CO p9 MICROSCOPIC q3bxbHIsLHHufOJ5FqTmHZP DESCRIPTION (test code ip3ymv4PgmBSmqJFsCFkokQ = 3371) CjbiIhjs79aPH6vE78DM5jI LTtRzK4GCKcauB2Hso6ALAr SXTulUEyD193t5nev4sggyA dxQI4bTwrEVKkgbmaKmJ7LD fqOHLizcdhXJm9JUdsHAWcl WB7DBLawGKcH9OcBGMhAI0c awa0YOY1KCoyKWFiUoR6AHE rhPVbIJUmlBowLWxqh068LN X4MbDoJQMfifCcyNiwnL2hG pBgBUQKCUTld5RtASCoKUJh clxwYXJkXHBhcn0= [facility] [id number] 09:07:26 Test Item Value Reference Range Interpretation Comments Case Report (test code Surgical Pathology = 104) Report Case: [id number] Authorizing Provider: Santiago Jones Collected: 01/29/2022 09:30 AM MD Jose Ordering Location: [facility] Received: 01/29/2022 10:12 AM SERVICES Pathologist: Jose Bael MD Specimen: Stomach, PARTIAL GASTRECTOMY DIAGNOSIS (test code = l7zojEKzQBBom5lbGKJswLP 3220) uZzEwMzNcZnRuYmpcdWMxIH tccnRmMVxlcGljOTYwMlxhb pEnRIKpsVFqT9ScglwzEIqb QR4pCL1zgYqgwSQowYNuUQU uLsVoh0gjy221rYPdg2iwRH EOugieiYi4qUsnU93zp2P3N dbnZ4kwZHPmWPjmECDpZGaf iLUcGHh7QOEvsWTlkpVyIrY bUCYjnAUupMD9IDMzMT8wbc ucQBndPEvjUZPpxkU5DRWtw UHrX7IxJDPdXZ4jybuaVTV7 CWqjNCNkLDU7XgQnQJAuy0Q ciok3RlDwqUMbNZhtnBXrdi jvutUmXBZsLEfiQjVhC5DYY UFDSCwgXGNmMCBQQVJUSUFM IFNMRUVWRSBHQVNUUkVDVE9 MMTqfWtDeLhvjLKTfO5WvCL WcUOIKVOxRZYkJZY1QZ08OM MGWFPLILT6FWzkTKZnkQMQg MSBDSFJPTklDIElOQUNUSVZ ZKUcYZ8LQWWBJP9bfJGMlI6 QgGOBjM9AmRU8uX4GiTDVqC 8LeHYIRWMyLZVeGMNAKK9Ib SEVMSUNPQkFDVEVSIFBZTE9 SSSBPUkdBTklTTVMgXGNmMC IuZCKmGVEALNSnU6HaZOjqG VNEEXOIHM5QLYgQXgqquMDn LWEtM8XkCU9aJ9DtKZXlM6W hPHEHXCoOHPbGDMFZN0BbBX 8VWYLVUY7ZGDPMLPKJGZwJF 7iRMEIOOUHYJBYALANyNU1J AEgRYhDRH1nhmZVmmEregqT pTHjdv4WbJPccJFIxTT7qwN siIKFnAR6kAFHgA5rvlW7ya tp2McPsEFXfJdM9GSIcsvA7 Fag1WNEcYEfjf4wmi2QkHET xDOu1tGzuHjRkBYVpz0anud BcZmNoYXJzZXQwIEFyaWFsO 084c5wrt8egxcQkqKN8QORb WOT4HDsjgmEsgaF5FBeapFG zVoE4YVipexOdUIyctfLrpa EgBgq2FLDgW803IJS7yQfay 7qwTQS7FOImRKGhPxVaGz4o gGLhZ445RUThYFOIOEVixAz 3VJGgdjNgzlRsiBEIz478G3 89e8vlCWRgzrSmoYbEvnyzc 5sfC786FXVqkRMsvdOoWcHv VXZjaNQccGW7IPKvCK1bjch tQOuuACitEKPasuP2HMAsfX NuT3MlQJAkRZ7rlqdcMYN3X ElkGZQoVNT3GcTiXHNiz5Wl ira9JtHnlj0ybx44GPO3y2Z lmOlaHBP4UTP9IeGbCf8moF YvLRWlKY3yCtQhjYXsAWJph k25mKvaYBelPAA6YVLesdXk h5Scw5nnRdHpciOwV0ykW0D yZHJoZWFkXHBnYnJkcmZvb3 Mpq8ZgdYThdMk0s2lnDAMvZ MMzwOtrz5nwWAH8GKNffCNx T8queQ7bPUDoWB2mbyyhm0s jHWknVKoeADDpnAB9vwA6YD ZlnWMzU0KiaB6gTUMxATvcC SYkfit7LnOxZl1mtHBhcQrr MFxzYmtwYWdlXHBnbmNvbnR ccGduZGVjXHBsYWluXHBsYW luXGYwXGZzMjRccWxcbGFuZ zEwMzNcaGljaFxmMVxkYmNo SFIhVSeaN1guNxRsQdSrWkv 2ZWQxjYTgKXRdNfe4BOSymP UdABUSjMjygC3uGFOjtUlqq P0fuEH3WWKuxkTjnLNKsV3f XKICgD0tIjJ5EhTkGmK9DPP yNDlccGFyfX0= CPT Code(s) (test code j3njkWXwYPQpgZI2JjKyXUU = 3357) gz3vsb9YelCUiiBMtXMguqW NbgeYaov14mUE4vR70RP0zV LQnXeY3RTCbtsL0Aoo8IGHp WWBgvBHlV510l0gms3eiorU pgTA9yPfaKHDdcaojThY7YU wrHGSgztplIZo6IZweGGOzm DA5LUUzsTIgT6KaCQKqGU4b dzj5ZNP1ENmjLHVqYtF6BTV mrNOuFLOzyKvdFZcal651VG J5MzEaGHSwetQxyFdaoL4oC dZlDPQ9OVFyNZbaPDS0 CLINICAL HISTORY (test a1xurOGoPLEenQN9RyNuQNZ code = 3356) qk9zqs1SolEInjZUaZPqdgS FhuvWiuo95gGF5pU53RJ9dP HNmSoD1MGCpsvA2Bgk3FUPo QMQlwBYbP696t2hab8lwtdE mjWW7XJEaIBQbH5KkJY6gIP KzuXXaB31qtXDoIIK9RBBrU SKqrDZxQTTkRBM4AAWaaQFu V0dkWRQhII7riramHFgbGHg kWQLgdDI8YEFsaPTpQ4PtIP UiKRjkXXLypev7IgJbXq0zt GVyeTcyMFxwYXJkXHJpMVxw zXAqxubppyZsIDAyJBJUo0X xgZPdr4Wkk1z1kTamYn0hwB WtWITqPJoqHBM2ETXiJtCdH MLrCSiyWPD1oPPfCXV5nL8r xbGytMS4ZVz9RNGskzI6ZcY wY5dsnhK7PBFRUvQ3szAfqR r2JFUmwCYkbSBdmM8lDHIgg xEGGORPPORXw33dXR9suQTw FXjoHKZ1CIUaq5Vdw2LvrPG yfQ== GROSS DESCRIPTION q4mewOOgIRIlcOHVUOJzT3x (test code = ptbUqFFXuuUAiD8NebxidOY [id number]) muJR1xIB7aaEstsNAczVSsG Q1HJCFkXnOlMMOtqAQiuqIj ZbMeCBHczORrtIC8JCMrPS5 nbsjtYDkbXSqiFOUkxwJ2ZH KxzXZgB0NxPDYrON8fjcmxQ HZ0PNtbuV8yeaMDZkbtVs7u dHRibHtcZjFcZmNoYXJzZXQ pXFGzgAbkMBAnAHl2hC2JWm nfSOH7NEWLOqtfKMErSW9Qf 4vqZYClpAZoIGI0JPfjqATv RVKwZZEtBGx4SHOrUTaexDN kZO7tiJegOervlTwuc6LijS BcXGlkIDUxMDAyIFxcZGIgI A1YJpBlXYB6VkwfFOBuOMx2 UGv5JT4VNmFkAKKmLPb5Sys 5IMRvDIf4IIifUI0TWNHsSL j2ETJxVfF5NFKiZPYuDANuF iBcXGYgQXJpYWwgXFxmbCBc VF7dgVbcuHQbwnFCXpLDqJ0 tYWNoLlxwYXIgDQpcZXBpY0 4av8BDl8VmQE6SKUw6wmUqb kniaA1iLUOcmsQxFLaxbHBg P0zbYfUhEDPWKDIqaINyWNZ venNil2LoNPgkfcKwBNOjbM YhKFMnBSQpLYFgLV82Z9Vuq eUfJHyaXBXrBPMnpL2xXD34 bWJlciBhbmQgInBhcnRpYWw nB5RgmEAkT4OdwGjbEIqnSN YqEyHiUUF4HCCmYJV1XQWuC MDszOB6ik5tfLCsgWZhHAAf qgHsy57zl8Hba9JxpWXusFT 3aXRoIGEgMjAuNCBjbSBsaW 1uFJWjf0DwlJwvTZdzkoGlY SBScDUvt6Mnx9ZzDWweVADf jg5krH3xDJExaA8dsQrrXO0 lKOw1pNYdXB6pQn9cVABfUP OuzPXnuM7hwgSuzrIqzAHiR EQgtA7zftZ5JQQmTUZsjIOv DQZqtegxFVJzU5QpoOnyUKU 3pAzgpMO5h5KzON51N67mIV X2gPG1HUTbk7RgWNwyIG7fe z5ciNUpjTjmoLUaz8kdta6i SJ6xRLQuq4DyFEQcLIdqz4t kvgQnCNJiAQmeLN41kVRpOU RnXSLGLFAqKYZtjiPfwNt4G DKhZMX0zN0vatAgppXew4Qc gVe5fBIuPQgoORXwGNTbMdp fbP8uFZvxjU1aLKOogYHqBI ApG7QovXlxjcowBYSbVMtPV PfCR1OFBN6TNGGgPEzrGUVg kASYTNW3LO6qVMjkaZNhprg eUNKvV3PaO4QzyhDacBZyIQ SspqMas2ucUPG8EQZnwWSri QEjYbEpAqkwRIW8HSfgn6ll YRJ8ZVXewCSouSNfGBbyAfX tQpxvPOQtI3KcC3PbrxD6PA p9 MICROSCOPIC q4cgzDFiHSNidRV8FrBsRLI DESCRIPTION (test code xy3wyn9BbsBSzbFDnJIqnuF = 3371) FeomIfpu89nOQ9oC65OF4kH SQkZhU3VRWrabM8Uyx6RDDp FZNllWNsV325q2gwg2elfgP ssQR1hZypRTSplgavGyG5GU wmKMPcecqfRXb4IEdvKFGxw MD4RJWieDQoQ7LqSLFpGX1l jel4MBE4VVgwWBGqXqL0QDW dmGZrOPPweAwoTUdak857MD E3JjOoQJLfutMtyQdmwI1uX rIaYLPBOVEpu9LkQWUeECOn clxwYXJkXHBhcn0= [facility] [id number] 09:07:26 Test Item Value Reference Range Interpretation Comments Case Report (test code Surgical Pathology = 104) Report Case: [id number] Authorizing Provider: Santiago Jones Collected: 01/29/2022 09:30 AM MD Jose Ordering Location: [facility] Received: 01/29/2022 10:12 AM SERVICES Pathologist: Jose Beal MD Specimen: Stomach, PARTIAL GASTRECTOMY DIAGNOSIS (test code = e7yuyBPxCADwd3dfEMOtvGI 3220) uZzEwMzNcZnRuYmpcdWMxIH tccnRmMVxlcGljOTYwMlxhb iEwONIzkBOiO6IvpfdeRPij VJ7xGQ4apBadyHGkvJCgQCH aLgAsx0gjb638sHTia8ilGJ KYawcxtWe4bAddA73fn1V0Q mjzT0zpGVFfQBcgXWSpPFha iGNiPJp1CYNahYLuygPgTpL sVHOojXWbjJF5GZPiCC8gbp zfGOqaYSazPKTqqxH9ADTbp HDeW2JyIMFcDV9mwuxcWQZ9 XHzbMRIzHYX3UoMoKQOyg7M vfqw9UzCezDZaPAwwtTEcmm ucbhSpCJRnIEljYrAxE8CYW UFDSCwgXGNmMCBQQVJUSUFM IFNMRUVWRSBHQVNUUkVDVE9 ENTrkCdOrDfviUPTzH9NaQY YdKRXSZIjFIVoMZM8AI03HS HFZOAYVHU5RBryPHHuqGPPi MSBDSFJPTklDIElOQUNUSVZ RMYkTX4TSJEUVI1tfVTXpC2 SuCKGhW6BdPF9mX7SrLAJzH 4KgXQSXGWlPJRmGODUNV5Oi SEVMSUNPQkFDVEVSIFBZTE9 SSSBPUkdBTklTTVMgXGNmMC DeESLoIFIUKEQrJ1RpTNcuP BILDHLUAA1MQPsVTjzehEAt EVGzG0VxQT4uV6DmYDGlW7R sDSWOABiGGRjZJVOXJ1IpRB 5UUTDNQW3AEKESJLKUXXvCN 8zSSKXGQUUQESARCISaRJ2B JMzZGrYXG1fmuKTsfXflwdK oHXioo3PpBVxnLGFkPM2eoY veWPQpBB2dRAVwM0kmpT5vm dg9WoUuXXFwJhD4BHOxjqX6 Dwq1GVRyYFjne3cbu4SfASK pSFb4qWiwSfZlTTHjc6ztzg BcZmNoYXJzZXQwIEFyaWFsO 083i5gac7klutFpxIE4YENf IEA4YZolmrOobrH1CRnpqRI lSkM4AYzzkjNhIFrovnXbfo RuKqr5TMAtL546EDM6iKjsw 4guNJC6AFRfVLBuBdIoJr1h tVAxT065KCToTDECXJVjvSw 9MXCmdmCykwDjrKAFp624H2 95d2vjIVCbnlKsuTcFbpfkm 1poB140WJZqiWMmklAoTwSs PWOxbWNzsGB3ANGfDY6yovz eKXxpIBxaJLYvcgM2RAKujT YcG5TeOEQjKM3pqsqlBOT1U KptGTLjTBC7ClThVWOgu8Lm foo5JdFqsr7khf28MWI3u0Q pyBgbKYC8OMY0YvJpKv0emR RwXJAcGI9eIrIdeCAuZHHgd u76cXaqWNnaDSQ7RLXollMz w6Bfd7daCrJkosEwX8eoJ5B yZHJoZWFkXHBnYnJkcmZvb3 Mci0ReuSXscSp5a1ecYKHwN XXmfNjpk6czGJZ8NWDxxMBb M6hfcG3iWXVrFT6biyfbr9s oGKmbEFghDBXsvOO5dnF1UH NbqRJiX5UrgJ8eTKJhUUinK FNdsnx2MlJkUj8kiYHvhYct MFxzYmtwYWdlXHBnbmNvbnR ccGduZGVjXHBsYWluXHBsYW luXGYwXGZzMjRccWxcbGFuZ zEwMzNcaGljaFxmMVxkYmNo JLBqKNglJ1jvCkQyDmVpQcw 6KWZyxQDrCWNuFnb5TCSqhA ShNTSYcShgvU2dWQOeaJlyu M9grIW1IUQwcdDjsXKQxK7n NVGWdW3aZsR0QkTkTbN1TUP yNDlccGFyfX0= CPT Code(s) (test code l0ugcANiHTYtwOT6YoRwGUE = 3357) ft7bfr8TnxTZkoWTdAFlkiN WmkhKrhe64nNG4bW45GI7eT OGlEyY1BVXinfO1Ncj7TACu PXItuKBtT274x2pyc8iwibQ beKJ7iYssWLScqtjzQrE6VA etLJYsqcheYBm8CEqfBJKxy MG5TRFqmFLdA4UtHFQjCI7m dxn2KHW3UIjaOUTgScV5XGZ cmYWnFCHogTjhFBpfn560AY U1RoJuJPHgfhLpiHnhzM6tW tNxZBH6BELiQHshOSZ8 CLINICAL HISTORY (test t9aplBWkVLXeoXB2FhXxKAA code = 3356) om6tgk8BbqRZrrZZgYOoohE AwzkLgem93rPJ5oS76ES1qU BAlUfA3ZBGauwI2Lij6GKGx DHBwzHMbI343t1gnn7upkjT fbWB5PDGaZUElJ7SfGZ5nFC IlxMUyN82pfKOtUPS6LUOaP WUxxXYxMRBjPOO3UJWgnSPd X6xbPWAyBE0tdetfEZumVFn sDZXtuNH8KEWrrAVsX7PwDF JvZKfvIQSijom7JkPrMa9bi GVyeTcyMFxwYXJkXHJpMVxw dDMkuywtzqTgOXHdAXEJx0I pvKIio0Ljq2j9tOxcYe3sbS QyXQRrSUzjPJT4HVBmCuYnB VUsNRvxMDW6wGAzWQZ5jJ6g byKcpMX2FVt2NMFqfsT3PhB mV3xvyxI0TFIGKoM8nuXycK l7QLNbyBSnwSPncJ5nQCTrp aAXEUTBMBVPf43rYR4jrUAl HTqkCRW5ATTzr1Lse3JnbWW yfQ== GROSS DESCRIPTION h9dhzILwKMBjrRASDVOzN1r (test code = ttnThCOZjdHFzL1CtlbipRB [id number]) rqBU9yGH1btAoerSMqlNNgG D9YYMQyKzGkESWpdGCuilDc NhSaFMEtmNCdmPO8TTEuGN1 nqmjmTVziITqqMZCdicP9ID PfmUWjC1ZjERRpTU7qdtodF WS9CLinbQ9tnjDAHwvcRy9h dHRibHtcZjFcZmNoYXJzZXQ lPOZupMnaUVFpHDp4vO3XSg daNMI2OQLQFybuXTTmGU4Et 1zsDBUqoLGxDIR0XLgjpOIw DNQqIRHiKEb6SOYfFUktjHC lQG2wxUiiYuzhbTkat8FhhK BcXGlkIDUxMDAyIFxcZGIgI H2RRfLvTPM8DyntDBOoKRl2 QTu0FV8HBeGkAEOsRCd2Ltk 8YWAxXUd5RKkhVX9YDJCaBG x2KGNlNaQ1ZWIcVYIhFPItD iBcXGYgQXJpYWwgXFxmbCBc IO0zsXwwwBEwpnAJWdYIuV3 tYWNoLlxwYXIgDQpcZXBpY0 5dg2MOj6GsWL6DYYr2lwAbc lkdgE9lEVEfqqQdDKiohYXu D1qkEtNoBOAGTVZymLWcHXA ouuKdi2KqLDhwobKvDRRxnZ SxPPNeKLFjDTEhQO59Q5Ajk iZmGRnjYCPvLLGsbI6bAX01 bWJlciBhbmQgInBhcnRpYWw eZ0ZxhGSpH1DkvDuvFJwaBV RmIpZhBZE9RLSzRBG1BXLmY PGxlYN5fo7nmYNxxPVjGJYw zgXff96ex2Kss4EwzHNrnNN 3aXRoIGEgMjAuNCBjbSBsaW 3wCYMvo4IbsMvuELqirkApW FNNwSBpu8Olm1MpAAmrFAYs mi8yeD6zCPKbvX7iiRpuHP3 uSRa1bVQyPC3hLo6vIUEjND QrzIMzuS7lngFusdAywXYoD HEieJ0truJ5WBFlRJGnrWDb XKHddareWHXnP9EjvTsmYRK 3yGrjdTW5r6HlBU74A37nTP N3uEX8DBBic2GxYSwnEM8cp i0gzKGscObnxONtb7xaiq0g ZO5fGDIeq1XuFYPaQZadd1k dgiThDYCpWWctFS26jHElJO FjGAQSBIMzEEQxljNvnCt4E WYfSNU0lH4gnuXjazDjb5Sq pKk4dKLrULzvAVOmIYVkCpz cnX8lGLyxuC8pDZObsBXfMI VzS3HlhSnhxdeoMOXkCExAC KeJV2XSNP6HKCAjONvvUBDl sHJOORO9EU6sQZsfoYWxeut uEOFmI2GyJ1WhnoZirINfEG XihjXfh3nnKPJ3IHYjfRNxq XMxKoQkPlznFJD1BCnmm4hn ROR3XFKcqGXbqGRnMXnsCiZ eAcmcKGUcL9UiZ3NrglP0IB p9 MICROSCOPIC d7gsdPItECIxzFA0OsEvGRN DESCRIPTION (test code bl9nmh6AicUFhkBOrDFmguY = 3371) EdyuHuqj74pXU7pR73XD0rD RJaNlF2UVSxkmK2Gkh2MMQc PCYbvJMmT780u9txv1ppsuE tmZZ5aXpiPHUblwvkXhK8AK jlGNMyafsaCZn4HDudQQFsh YD2CKGerWGwY3GyXGVxGU6c iwf1PSU4DBdmSIXyYtM3RQP tkGSjDWLqnNdeAWkbe103GX N1IbUiIYFnerUlkCkpuF5vH gUjPERGOOOkz4NhUSDnTVVz clxwYXJkXHBhcn0= [facility] Wnuf9019-42-77 09:07:26 Test Item Value Reference Range Interpretation Comments Case Report (test code Surgical Pathology = 104) Report Case: [id number] Authorizing Provider: Santiago Jones Collected: 01/29/2022 09:30 AM MD Jose Ordering Location: [facility] Received: 01/29/2022 10:12 AM SERVICES Pathologist: Jose Beal MD Specimen: Stomach, PARTIAL GASTRECTOMY DIAGNOSIS (test code = t6osxVEdHUGmp8arRFKhvKH 3220) uZzEwMzNcZnRuYmpcdWMxIH tccnRmMVxlcGljOTYwMlxhb eAyFPBnoVXqA2GazheqRZaz SQ6aHN7pjQpisPJstXOhFWM vLyNap4gdo831pKTqc5iyBT FFpspueCs7pHtgW56ea5M6M msoY5fgEAScUKblPEPyCIge oMOnIHx3ADElrKCdgdZgCtL wURBuhYArfZO2AJTsWB4pfz tiVEkiYDusWDSrvqA6XPUch WMqE0MoINFcGW7wkylwRIN4 DDpuNSXlWHG3AfWiDKZxe8E ywzl8JvXmoNJyXXgbpJPuzs phiwXhOWNjPPfhOePlB8YRS UFDSCwgXGNmMCBQQVJUSUFM IFNMRUVWRSBHQVNUUkVDVE9 ADWxoCvRrRvyePZYaM6OjGL MqVAFCHOvUWApSQZ3DP03GL FFYUNGTOR5LCcoCSVuwVVEv MSBDSFJPTklDIElOQUNUSVZ XUIeGC3EQNATSP0qnRQGsD7 RpXFGzG0GxWF1iV6IwYAUoK 8LzBFVTLGyXBJwEYTQRF4Xu SEVMSUNPQkFDVEVSIFBZTE9 SSSBPUkdBTklTTVMgXGNmMC SkUNRaNGKQXPXdB1ZmNOzrF JVQUZRAEW3TCUxNCjlztPZj IJPoY3YkNJ1kJ5QdIWMkQ7V hUQPFZAhIGZzCSOUDR4TgCB 3DAVNYXE3OWTPWCTSEIVeBS 8zLSXEOEMWRCWPPGSSwPK6P GSkQEsDAG9jeqFHauRypvvB tXWqnf6OgAYxqBCDxPO5hgN ymVEHtAQ9aKURjM8tguO0ei vy1WfDlRUHrFaS6XCLmgvA2 Kzx7GEIfDUeiq0fdx5WdELB lPUg9dBcdBwMrMJRjz8iale BcZmNoYXJzZXQwIEFyaWFsO 980e4lmp4bdmbYonOQ8FVSc RCX1CFpjedEknnV4RTfrtXA pJkB4LBcpldCpQOdrguTtcn SmYav0QXJpR975EEI3hVnft 3msQID5TKLrMHLvScVqDd4d pNSgQ253XITaNNJAGKDacFg 7RPPjpaUwxbUgdLWRr229T9 12v5mnSRTggaOajXeFwawqd 4ndB640ZCRyxSXbwtLySvBx KNMvpTAdsGE3IJDvQC4kbtf vENhoQXooBPErbuK0FPKlgV HyI0AjPZIqQI5ipdlhRIQ8W AllDCUjIXT4RsMjRLAau9Cb xjb9DfUzqc3yhc32SQX9u2O yeXikZMU9OFJ5DnQhCg2opP UwDAYpNP6pMpGreWIlJFWub a12sYgnHXfmYTF0OUWcoxBf s8Jnj4kiXsIvogJnR2wyW7Q yZHJoZWFkXHBnYnJkcmZvb3 Ncv6RpsYPkxYq7z5znUFRdY MYcsDibz1cqXDT5XZTzwYRj C3usgB0cIBMhBZ6pncigq7q wUNqfFDxrNGHyxRK1clI0CI MapCCaH7TypP4zFPPcCIhuI PLywuy5ThPvCz2dzQIboElj MFxzYmtwYWdlXHBnbmNvbnR ccGduZGVjXHBsYWluXHBsYW luXGYwXGZzMjRccWxcbGFuZ zEwMzNcaGljaFxmMVxkYmNo UZIyDDasE4kuWiHhHwRfWfs 8SGHkaUTqGHCcZss1DRSrdQ UjCUSHqGtegG3rWNOtbSpow E1iiTE5EUAyjpTbyTMBeV4y RDYUrD5zLwQ6DhStQmH9AUL yNDlccGFyfX0= CPT Code(s) (test code t1tuoLOqOHXcvHV0YoCaFZL = 3357) oq5ift0QuhFBqfWXgWDsnxC XekiRkwu30yCX3wT62EO0wL GQjJlX6NUCijrE3Irs1SXLf WKZthPIbD398l5nvq3ulplI siVC5xYfeQFGgfrgyQsZ9BB bzBQXzkkyxOTa6YIzzZMCuq QY3RLCwhUJfZ1UxCLEyQI7l wcu8AMY8JUdxIFFkXdZ1LNW qeNKlVCLgjFrfMVwle698JA L6NyStDZZpuuTfpLacpK5zQ zIcVYM4YKLuXJukWYG9 CLINICAL HISTORY (test c1kxgFXzWFRvaFP2QnDlTAZ code = 3356) kf4zyl7GmeCBmdPOzKGielA ThsoXndo17pOC6pO96FX5kO COyIdS0PPLjyqF9Svo9CFBu BSArzRFdU404x7yfn8oyepZ llUA2COBuNIQuX9AxVU2hZN BlyEEzY92quYXnQYD7BWCkZ ZQidAKlWDTbZLD2JKNqkKPi K1hwBIBgYE8xvehbGDmtKTe yJUBumVN6FTXvzUAcN1IgOH YiBQlgNLLslxp4KjNhNb9wc GVyeTcyMFxwYXJkXHJpMVxw cTJpbgilbzBcALTsFCSQm7P vxMKdz4Akm0x0vZghYo9zwN WqCZRlTGwyIKF6WEPcNeLoU ZMbFIncBPJ8jENmCBM6dS0s dmLwlJJ8KRs5DZZjevV5KpO sP4qioyE9WONNWtX1scXgvN c4GGGztCBqpQCnrQ3cHHLqf bHKNDXXGWQGr29dMZ5bkIWf IZsyZBV0QXEfq8Ibn3ScjLQ yfQ== GROSS DESCRIPTION j4adhNUrVVBbyKLPGOEiH3v (test code = yneDhFTAiwYQsD7KizhtgVP [id number]) fiNJ4rAS5lvZenaTPfbMBvH I2SAYSyFwGkJJZjzVJosaUw GmHxHERwuWZuzPO2DLJzHA1 zdoiaVHeiMOfyMNDpelR4LL CpvWGgZ9OzJJIoPR3bckowC CT6HUzdnE7sxiLZBbgxJn4s dHRibHtcZjFcZmNoYXJzZXQ lVGWjySqcBJUmVJz0rZ9TQw lkKTB9YDQRCtahRIXrZP5Lp 4gaOULudIRfOVG6XBsbvKBh RVMdQLHlETx1INViEErauKP lXJ4fcClkTsfjkRovv3PqyF BcXGlkIDUxMDAyIFxcZGIgI T0RMfTnKZX0QfuiTMJlEBi3 KEa7DR5QFhFdVIIrVHl8Poo 9MCLiQLr7GDuhTG0CUUDwGI p1GXMtTbP5WBJrDCXsUZKnI iBcXGYgQXJpYWwgXFxmbCBc FG4esBcosGQotaPBCaPPsV6 tYWNoLlxwYXIgDQpcZXBpY0 6bj5GZi9HlHG6EIGw9clJvu yfdlO2lETJdimEiEOvtrXUb F1geGvVhBXAAXNCejRAnGGH xddSou2QgSKdwuvTlSPXkpU WlBHQvNDLlGHDsQW66P6Mub zMgXCupEGCwEJSzsS5gWJ85 bWJlciBhbmQgInBhcnRpYWw tX2JghCGgD1XswMmdYKmzYH PwIgWiLUI1WRVmBVE5XDOkS WGkpSU7hg8ndOXoxHCbMZPp haRqi54gk0Edo8JpkSDliBT 3aXRoIGEgMjAuNCBjbSBsaW 8rKVBas0LxpOtdNStuudEyL LRLeACdd9Xcb4PuJTynFCNx jy4woS9tZENonE3etKorIE9 lOZo4eDLsPV0iYw5iEYQkUO GzqQKdpT4gjyNbxeGdiZJwP QFlfL0ucuG3KRVjCIMhfZLf TJIhtxleAZHdM1XkwXfpURS 9tWohuCE4i4MkPX39F85oOG W8zQU0QHIbj9QuYWrhSY5vl y7deRAstCtqpBRiu7qwjc1i XC3bRILly6XcTDXwDOykb7n gteFmOEYqWFseWU50jJTdJJ SqTNVIEEZgSDOpfnTozCk2O JHoHLM0bT2agmInlnObj1Sn lHr8uMAiDPamZDOvVYEtInc nuT8cWQmqhG3uXOUayMMnFX IcQ5ZbbErqcfthFMWtVLnQG KgJO1YWMC5VVLWjPDfdXVKk hYISSKU4AN8dELotiNTwyxm kBNPfP2TrW2VchbMidLAqQA HnrgDzx2wmUQW6EQRpsBHoj OFrJhAhOnewSAS0FZzqm7to BKF9ZRNpeIAjnJWoYPaqRrT lWgtuEIZrV7SmN3MyqrL8CS p9 MICROSCOPIC l2hsbJWxWGWtwMF9DnLuKUC DESCRIPTION (test code pq1xbj2GtnFNxqBFeHFspcL = 3371) JzfpQnvf01dVM8vP89RH6iK MNoTkM9BXCumlY1Daz0JLDz JGEnwSYkD299c6pys0jbddU joDI7cEeoREDqfhjtQcU2RA cfLCElsvccSCx8SXtoRBSif WT0HTRvfHTfA5MaKRFhEP0x jhp7GNR7HLimHGTfNeP1OBB iwCBcTCQrkBijZNidl940JA D5VhMsVZRqjyPwcHpcdW0fI cKxAPKWZHFzw9ViIJGxLXFm clxwYXJkXHBhcn0= [facility] [id number] 09:07:26Surgical Pathology Report Case: [id number] Authorizing Provider: Santiago Jones Collected: 209:30 AM MD Jose Ordering Location: [facility] Received: 01/29/2022 10:12 AM SERVICES Pathologist: Jose Beal MD Specimen: Stomach, PARTIAL GASTRECTOMY A. STOMACH, PARTIAL SLEEVE GASTRECTOMY: - OXYNTIC MUCOSA WITH MINIMAL CHRONIC INACTIVE GASTRITIS - NEGATIVE FOR HELICOBACT ER PYLORI ORGANISMS (BY H&E EXAMINATION) - NEGATIVE FOR INTESTINAL METAPLASIA, DYSPLASIA, MALIGNANCY Signing Pathologist Direct Phone Line: [phone] signed by Jose Beal MD on 02/01/2022 at 9:07 [id number] obesity, Body mass index 40.0-44.9, adult, Pulmonary [...] rugal folds. No discrete lesions are identified. Miniature Train Driver sections are submitted in A1-A2.BERNIE Bangura, HT (ASCP)Performed.POC- Glucose [id number] 08:23:27 Test Item Value Reference Range Interpretation Comments POC-Glucose Meter (test 99 mg/dL 70-110 : TE STED AT [facility] code = 1538) [address] [place] [address], [facility] 30: Human Resources Temp/Techni holley ID = [id number] for Robert Flanagan Lab Interpretation (test Normal code = 51161-7) [facility]-Glucose [id number] 08:23:27 Test Item Value Reference Range Interpretation Comments POC-Glucose Meter (test 99 mg/dL 70-110 : TE STED AT [facility] code = 1538) [address] [place] [address], 770 30: Human Resources Temp/Techni holley ID = [id number] for Robert, Flanagan Lab Interpretation (test Normal code = 98105-2) [facility] [id number] 08:23:27 Test Item Value Reference Range Interpretation Comments POC-Glucose Meter (test 99 mg/dL 70-110 : TE STED AT [facility] code = 1538) [address] [place] [address], 770 30: Human Resources Temp/Techni holley ID = [id number] for Robert, Flanagan Lab Interpretation (test Normal code = 26185-3) [facility]-Glucose [id number] 08:23:27 Test Item Value Reference Range Interpretation Comments POC-Glucose Meter (test 99 mg/dL 70-110 : TE STED AT [facility] code = 1538) [address] [place] [address], 770 30: Human Resources Temp/Techni holley ID = [id number] for Robert, Flanagan Lab Interpretation (test Normal code = 34770-4) [facility] [id number] 08:23:27 Test Item Value Reference Range Interpretation Comments POC-Glucose Meter (test 99 mg/dL 70-110 : TE STED AT [facility] code = 1538) [address] [place] [address], 770 30: Human Resources Temp/Techni holley ID = [id number] for Robert, Flanagan Lab Interpretation (test Normal code = 99942-7) [facility] [id number] 08:23:27 Test Item Value Reference Range Interpretation Comments POC-Glucose Meter (test 99 mg/dL 70-110 : TE STED AT [facility] code = 1538) [address] [place] [address], 770 30: Human Resources Temp/Techni holley ID = [id number] for Robert, Flanagan Lab Interpretation (test Normal code = 88642-0) [facility]-Glucose [id number] 08:23:27 Test Item Value Reference Range Interpretation Comments POC-Glucose Meter (test 99 mg/dL 70-110 : TE STED AT [facility] code = 1538) [address] [place] [address], 770 30: Human Resources Temp/Techni holley ID = [id number] for Robert, Flanagan Lab Interpretation (test Normal code = 51058-8) [facility] [id number] 08:23:27 Test Item Value Reference Range Interpretation Comments POC-Glucose Meter (test 99 mg/dL 70-110 : TE STED AT [facility] code = 1538) [address] [place] [address], 770 30: Human Resources Temp/Techni holley ID = [id number] for Robert, Flanagan Lab Interpretation (test Normal code = 98655-5) [facility]-Glucose [id number] 08:23:27 Test Item Value Reference Range Interpretation Comments POC-Glucose Meter (test 99 mg/dL 70-110 : TE STED AT [facility] code = 1538) [address] [place] [address], 770 30: Human Resources Temp/Techni holley ID = [id number] for Robert, Flanagan Lab Interpretation (test Normal code = 71735-5) [facility] [id number] 08:23:27 Test Item Value Reference Range Interpretation Comments POC-Glucose Meter (test 99 mg/dL 70-110 : TE STED AT [facility] code = 1538) [address] [facility], 770 30: Human Resources Temp/Techni holley ID = [id number] for Robert, Flanagan Lab Interpretation (test Normal code = 13045-0) [facility]-Glucose [id number] 08:23:27 Test Item Value Reference Range Interpretation Comments POC-Glucose Meter (test 99 mg/dL 70-110 : TE STED AT [facility] code = 1538) [address] [facility], 770 30: Human Resources Temp/Techni holley ID = [id number] for Robert, Flanagan Lab Interpretation (test Normal code = 98149-8) [facility]-Glucose [id number] 08:23:27 Test Item Value Reference Range Interpretation Comments POC-Glucose Meter (test 99 mg/dL 70-110 : TE STED AT [facility] code = 1538) [address] [place] [address], 770 30: Human Resources Temp/Techni holley ID = [id number] for Robert, Flanagan Lab Interpretation (test Normal code = 30410-1) [facility]-Glucose [id number] 08:23:27 Test Item Value Reference Range Interpretation Comments POC-Glucose Meter (test 99 mg/dL 70-110 : TE STED AT [facility] code = 1538) [address] [place] [address], 770 30: Human Resources Temp/Techni holley ID = [id number] for Robert, Flanagan Lab Interpretation (test Normal code = 45660-6) [facility]-GLUCOSE [id number] 08:23:27 Test Item Value Reference Range Interpretation Comments POC-GLUCOSE METER 99 mg/dL 70-110 : TESTED A T [facility] 6720 (BEAKER) (test code = ERIC Pink [facility], 1538) [address]: Human Resources Temp/Techni holley ID = [id number] for Brigido s, Flanagan BASIC METABOLIC [id number] 06:04:00 Test Item Value Reference Range Interpretation [...] eGFR (test code = mL/min/1.73 values Stage D escription 1092) sq m Result G1 Xiomara l [...] not appl icable for dialysis patien ts Human Resources Temp ID Roman SILVA [id number] 06:04:00 Test Item Value Reference Range Interpretation Comments MAGNESIUM (BEAKER) (test code = 1.8 mg/dL 1.6-2.6 627) Human Resources Temp ID Roman SILVA [id number] 06:04:00 Test Item Value Reference Range Interpretation Comments PHOSPHORUS (BEAKER) (test code = 3.4 mg/dL 2.3-4.7 604) Human Resources Temp ID Roman SILVA LCBC W/PLT COUNT & AUTO [id number] 05:02:47 Test Item Value Reference Range Interpretation [...] PERCENT (BEAKER) (test code = 2801) POCT-GLUCOSE [id number] 21:01:10 Test Item Value Reference Range Interpretation Comments POC-GLUCOSE METER 123 mg/dL 70-110 H : TESTED A T [facility] 6720 (BEAKER) (test code = ERIC [place], 1538) [address]: Human Resources Temp/Techni holley ID = [id number] for SANTSO MARKS POCT , [id number] 06:45:00 Test Item Value Reference Range Interpretation Comments Test Urine, POC (test code Negative = 1535908) Control line present?, POC (test Yes code = 5328748) Background clear?, POC (test code = Yes 3777714) UPT Cassette Lot #, POC (test code = 20110825 5317161) UPT Cassette Expiration Date, POC 09485 (test code = 2822662) [facility] , [id number] 06:45:00 Test Item Value Reference Range Interpretation Comments Test Urine, POC (test code Negative = 7753220) Control line present?, POC (test Yes code = 3728394) Background clear?, POC (test code = Yes 5355242) UPT Cassette Lot #, POC (test code = 20110825 4628049) UPT Cassette Expiration Date, POC 57597 (test code = 2170856) [facility] , [id number] 06:45:00 Test Item Value Reference Range Interpretation Comments Test Urine, POC (test code Negative = 6349817) Control line present?, POC (test Yes code = 9599685) Background clear?, POC (test code = Yes 1895841) UPT Cassette Lot #, POC (test code = 20110825 4344216) UPT Cassette Expiration Date, POC 42974 (test code = 8001960) [facility] , [id number] 06:45:00 Test Item Value Reference Range Interpretation Comments Test Urine, POC (test code Negative = 2051206) Control line present?, POC (test Yes code = 8588388) Background clear?, POC (test code = Yes 7286103) UPT Cassette Lot #, POC (test code = 20110825 9525992) UPT Cassette Expiration Date, POC 74472 (test code = 3817246) [facility] , [id number] 06:45:00 Test Item Value Reference Range Interpretation Comments Test Urine, POC (test code Negative = 1104001) Control line present?, POC (test Yes code = 5751713) Background clear?, POC (test code = Yes 4131011) UPT Cassette Lot #, POC (test code = 20110825 3898245) UPT Cassette Expiration Date, POC 56468 (test code = 0457468) [facility] , [id number] 06:45:00 Test Item Value Reference Range Interpretation Comments Test Urine, POC (test code Negative = 4267647) Control line present?, POC (test Yes code = 6119058) Background clear?, POC (test code = Yes 9319229) UPT Cassette Lot #, POC (test code = 20110825 0387632) UPT Cassette Expiration Date, POC 63408 (test code = 3213170) [facility] , [id number] 06:45:00 Test Item Value Reference Range Interpretation Comments Test Urine, POC (test code Negative = 9714076) Control line present?, POC (test Yes code = 9125212) Background clear?, POC (test code = Yes 5432473) UPT Cassette Lot #, POC (test code = 20110825 9274175) UPT Cassette Expiration Date, POC 21537 (test code = 9709496) [facility] , [id number] 06:45:00 Test Item Value Reference Range Interpretation Comments Test Urine, POC (test code Negative = 4371512) Control line present?, POC (test Yes code = 3930975) Background clear?, POC (test code = Yes 5991900) UPT Cassette Lot #, POC (test code = 20110825 1779339) UPT Cassette Expiration Date, POC 70744 (test code = 5464781) [facility] , [id number] 06:45:00 Test Item Value Reference Range Interpretation Comments Test Urine, POC (test code Negative = 4948463) Control line present?, POC (test Yes code = 3081321) Background clear?, POC (test code = Yes 6988636) UPT Cassette Lot #, POC (test code = 20110825 8196517) UPT Cassette Expiration Date, POC 13002 (test code = 6508749) [facility] , [id number] 06:45:00 Test Item Value Reference Range Interpretation Comments Test Urine, POC (test code Negative = 8025864) Control line present?, POC (test Yes code = 4346022) Background clear?, POC (test code = Yes 0345506) UPT Cassette Lot #, POC (test code = 9470353 3368919) UPT Cassette Expiration Date, POC 47335 (test code = 6411204) [facility] MOLECULAR [id number] 15:36:10 Test Item Value Reference Range Interpretation Comments POCT Molecular FluA (test code = Negative Negative 20990-3) POCT Molecular FluB (test code = Negative Negative 44576-2) Lab Interpretation (test code = Normal 31319-8) [facility] MOLECULAR [id number] 15:29:24 Test Item Value Reference Range Interpretation Comments POCT Molecular Strep (test code = Negative Negative 97602-7) Lab Interpretation (test code = Normal 28213-4) [facility][id number] 00:00:00 Test Item Value Reference Range Interpretation Comments SARS-CoV-2 INTERPRETATION (test NEGATIVE SEE NOTE code = 35926-5) SOURCE (test code = 43359-6) NOT SPECIFIED SARS-COV-2(COVID19),[id number] 00:00:00 Test Item Value Reference Range Interpretation Comments SARS-CoV-2 INTERPRETATION (test NEGATIVE SEE NOTE code = 31614-3) SOURCE (test code = 02397-0) NOT SPECIFIED Surgical pathology [id number] 10:00:00 Test Item Value Reference Range Interpretation Comments Surgical pathology see emr pathology study (test code = report. 12329-9) [facility] W Auto Differential panel - [id number] 02:29:00 Test Item Value Reference Range Interpretation Comments white blood count (test code = 10.1 K/uL 4.0-11.5 white blood count) red blood count (test code = red 4.86 M/uL 3.80-5.20 blood count) hemoglobin (test code = 14.1 g/dL 10.5-15.7 hemoglobin) hematocrit (test code = 41.9 % 34.0-50.0 hematocrit) MCV [Entitic volume] (test code = 86.2 fL 86-100 92389-3) mean corpuscular hemoglobin (test 29.0 pg 26.2-33.4 [...] 44.4-80.1 leukocytes in Blood (test code = 69069-5) Immature granulocytes [#/volume] 0.0 K/uL 0.0-0.03 in Blood (test code = 80752-6) lymphocyte% (test code = 27.4 % 10.0-50.0 lymphocyte%) mono % (test code = mono %) 7.4 % 3.6-12.0 eos % (test code = eos %) 2.7 % 0.0-5.4 Basophils/100 leukocytes in 0.6 % 0.1-1.2 Unspecified specimen (test code = 66648-1) Band form neutrophils [#/volume] 6.26 K/uL 1.56-6.13 H in Blood (test code = 26245-9) Lymphocytes [#/volume] in 2.8 K/uL 1.18-3.74 Unspecified specimen by Automated count (test code = 64857-7) mono # (test code = mono #) 0.75 K/uL 0.24-0.86 eos # (test code = eos #) 0.27 K/uL 0.04-0.36 basophil # (test code = basophil 0.06 K/uL 0.01-0.08 #) NRBC% (test code = NRBC%) 0 /100 WBC 0-0.2 NRBC# (test code = NRBC#) 0 K/uL [facility] - Serum or [...] in Respiratory specimen by MARI with probe [id number] 02:15:1820738-6Twscqdwzn Medical GroupDifferential panel, method unspecified - [id number] 00:00:00 NeutrophilsBandLymphocyteAtypical LymphMonocyteEosinophilBasophilMetamyelocyteMyelocytePromyelocyteBlastsNucleated Red Blood CellAbs Neutrophil Count (Man)Abs Lymph Count (Man)Abs Monocyte Count (Man)Abs Eosinophil Count (Man)Abs Basophil Count (Man)Platelet EstimatePlatelet MorphologyPolychromasiaMacrocytosisHypersegmented Polys [facility] HospitalChoriogonadotropin ( test) [Presence] in Serum or [id number] 00:00:00 Test Item Value Reference Range Interpretation Comments Choriogonadotropin.beta subunit negative neg ( test) [Presence] in Serum or Plasma (test code = 2110-5) [facility], 2 [id number] 13:30:00Reason for Exam:- >Severe persistent asthma without complication [facility] : 1995 Sex: FFINAL [...] focal pneumonia or pulmonary edema. Signed: Yvette Nguyenort Verified Date/Time: 11/09/2020 13:30:42 XR Chest 2 [id number] 13:30:00Interface, External Ris In - 11/09/2020 1:32 [...] Yvette Nguyen MDReport Verified Date/Time: 11/09/2020 13:30:42 [facility] AntigenSARS-COV 2 Antigen
[2022-08-29] MEDS ORDERED: ONDANSETRON 4 MG/2 ML VIAL ONE (18:13)
[2022-08-29] MEDS ORDERED: FAMOTIDINE 20 MG/2 ML VIAL IV ONE (18:13)
[2022-08-29] MEDS ORDERED: NA CHLORIDE 0.9% 1,000 ML ONE (18:13)
[2022-08-29 18:14] LABS: Absolute Lymphocytes (CBC) 2.6 K/uL (0.7-4.9); Hematocrit 37.6 % (36.0-45.0); Lymphocytes % 23.7 % (15.3-44.8); MCV 87.2 fL (80-100); MPV 7.5 fL (7.6-11.3); RBC Red Blood Cell Count 4.31 M/uL (3.86-4.86)
[2022-08-29 18:16] LABS: Specific Gravity > 1.030 (1.005-1.030)
[2022-08-29 18:18] LABS: Specific Gravity > 1.030 (1.005-1.030); Urine Bacteria <20 /HPF (<20); Urine Bilirubin NEGATIVE (Negative); Urine Blood Negative (Negative); Urine Clarity Turbid (Clear); Urine Color Yellow (Yellow); Urine Glucose NEGATIVE (Negative); Urine Mucus 4+ /HPF (None Seen); Urine Protein TRACE (Negative); Urine RBC <5 /HPF (None Seen); Urine Urobilinogen 1+ (Normal)
[2022-08-29 18:45] LABS: Potassium 4.2 mEq/L (3.5-5.1)
--- NOTE | 2022-08-29 19:08 | RAD REPORT ---
EXAM DESCRIPTION: US - Transvaginal OB - 08/29/2022 6:43 pm CLINICAL HISTORY: ABD CRAMPING, COMPARISON: Transvaginal OB dated 07/15/2022 TECHNIQUE: Sonographic grayscale and color flow images of a first-trimester were obtained through approach. FINDINGS: A single live intrauterine is identified. [place]-rump length measures 3.8 millimeters, corresponding to gestational age of 6 weeks, 1 days. heart rate: 106 BPM. Normal yolk sac is visualized measuring 3 millimeter. Maternal ovaries are visualized. The left ovary contains a 2 centimeter anechoic cyst, with a ring fi re vascularity, may represent a corpus luteum. No free fluid. IMPRESSION: 1. Single live intrauterine . 2. Calculated gestational age: 6 weeks, 1 days. Estimated due date by ultrasound: 04/23/2023.
[2022-08-29] MEDS ORDERED: ACETAMINOPHEN 325 MG TABLET ONE (19:30)
--- NOTE | 2022-08-29 20:07 | EDPHYS ---
Physician Documentation [facility] Name: Deric Barry Age: 27 yrs Sex: Female : 1995 Arrival Date: 08/29/2022 Time: 17:06 Bed 20 Private MD: ED Physician Jerome Huffman HPI: 08/29 17:35 This 27 yrs old Female presents to ER via Ambulatory with complaints of Abdominal cp Cramping. 17:35 The patient presents to the emergency department with abdominal pain, of the right cp lower quadrant and left lower quadrant, nausea and vomiting, and is intermittent. course: care: private OB physician, Leakage of Fluid: none appreciated, Ultrasound: the patient has not had an ultrasound. Associated signs and symptoms: Pertinent negatives: diarrhea, dysuria, fever, ruptured membranes, vaginal bleeding, vaginal discharge, active vomiting. 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 1, 1, Living 1, LMP 06/06/2022, Verified, EDC cp 03/13/2023, Gestational age from LMP: 12 weeks 1 day Historical: - Allergies: 17:13 Spiriva with HandiHaler; hb 17:13 Peanut; hb - Home Meds: 17:13 Advair Diskus 100-50 mcg/dose Inhl dsdv 1 puff 2 times per day [Active]; albuterol hb sulfate 1.25 mg/3 mL Inhl nebu 3 mL 3 times per day [Active]; Bumetanide Oral as needed [Active]; furosemide 40 mg Oral tab 1 tab once daily [Active]; Linzess 290 mcg Oral capsule daily [Active]; Protonix 40 mg Oral granules delayed release for susp packet every morning [Active]; - PMHx: 17:13 Asthma; "severe"; PA with VSD; hb - PSHx: 17:13 Cholecystectomy; Gastric Sleeve-January 2022; pulmonary valve replacement, bovine; x 5;hb - Immunization history:: Adult Immunizations up to date. - Social history:: Smoking status: Patient denies any tobacco usage or history of. ROS: 17:40 Constitutional: Negative for body aches, chills, fever, poor PO intake. cp 17:40 Eyes: Negative for injury, pain, redness, and discharge. cp 17:40 ENT: Negative for drainage from ear(s), ear pain, sore throat, difficulty swallowing, difficulty handling secretions. 17:40 Cardiovascular: Negative for chest pain, palpitations. 17:40 Respiratory: Negative for cough, shortness of breath, wheezing. 17:40 Abdomen/GI: Positive for nausea and vomiting, abdominal cramps, Negative for diarrhea, constipation. 17:40 Back: Negative for radiated pain. 17:40 : Negative for urinary symptoms, vaginal bleeding, vaginal discharge. 17:40 Skin: Negative for rash. 17:40 Neuro: Negative for altered mental status, dizziness, headache, weakness. 17:40 All other systems are negative. Exam: 17:45 Constitutional: The patient appears in no acute distress, alert, awake, comfortable, cp non-toxic, well developed, well nourished. 17:45 Head/Face: Normocephalic, atraumatic. cp 17:45 Eyes: Periorbital structures: appear normal, Conjunctiva: normal, no exudate, no injection, Sclera: no appreciated abnormality, Lids and lashes: appear normal, bilaterally. 17:45 ENT: External ear(s): are unremarkable, Nose: is normal, Mouth: Lips: moist, Oral mucosa: pink and intact, moist, Posterior pharynx: is normal, airway is patent, no erythema, no exudate. 17:45 Chest/axilla: Inspection: normal. 17:45 Cardiovascular: Rate: normal, Rhythm: regular, Edema: is not appreciated, JVD: is not appreciated. 17:45 Respiratory: the patient does not display signs of respiratory distress, Respirations: normal, no use of accessory muscles, no retractions, labored breathing, is not present, Breath sounds: are clear throughout, no decreased breath sounds, no stridor, no wheezing. 17:45 Abdomen/GI: Inspection: abdomen appears normal, Bowel sounds: active, all quadrants, Palpation: soft, in all quadrants, mild abdominal tenderness, in the right lower quadrant and left lower quadrant, rebound tenderness, is not appreciated, involuntary guarding, is not appreciated. 17:45 Back: pain, is absent, ROM is normal. Vital Signs: 17:10 BP 121 / 71; Pulse 65; Resp 16; Temp 98.5(O); Pulse Ox 100% on R/A; Weight 73.94 kg; hb Height 5 ft. 1 in. ; Pain 4/10; 19:31 BP 104 / 72; Pulse 59; Resp 16 S; Pulse Ox 98% on R/A; ha1 20:21 BP 102 / 70; Pulse 61; Resp 16 S; Pulse Ox 98% on R/A; ha1 17:10 Body Mass Index 30.80 (73.94 kg, 154.94 cm) hb 17:10 Pain Scale: Adult hb MDM: 17:19 Patient medically screened. 18:00 Differential diagnosis: ectopic , dehydration, electrolyte abnormality. 20:05 Data reviewed: vital signs, nurses notes, lab test result(s), radiologic studies, cp ultrasound. 20:05 I considered the following discharge prescriptions or medication management in the emergency department Medications were administered in the Emergency Department. See MAR. Counseling: I had a detailed discussion with the patient and/or guardian regarding: the historical points, exam findings, and any diagnostic results supporting the discharge/admit diagnosis, lab results, radiology results, the need for outpatient follow up, an OB/Gyne specialist, to return to the emergency department if symptoms worsen or persist or if there are any questions or concerns that arise at home. Response to treatment: the patient's symptoms have markedly improved after treatment, and as a result, I will discharge patient. 08/29 17:30 Order name: Abo/rh Typing; Complete Time: 19:17 08/29 19:18 Interpretation: ABO/RH TYPE <p>O POSITIVE</p>; Reviewed. 08/29 17:30 Order name: Basic Metabolic Panel; Complete Time: 19:17 08/29 17:30 Order name: CBC with Diff; Complete Time: 19:17 08/29 19:17 Interpretation: Normal except: WBC 11.00; MPV 7.5. 08/29 17:30 Order name: Test, Urine; Complete Time: 19:17 08/29 19:18 Interpretation: Reviewed. 08/29 17:30 Order name: Quantitative Hcg; Complete Time: 19:17 08/29 19:18 Interpretation: Reviewed. 08/29 17:30 Order name: Urinalysis w/ reflexes; Complete Time: 19:17 08/29 19:18 Interpretation: Normal except: UCLA Turbid; Urine SG > 1.030; UPROT TRACE; UUROB 1+; cp MUCUS 4+. 08/29 17:30 Order name: US Transvaginal Ob; Complete Time: 19:17 cp 08/29 19:18 Interpretation: Report reviewed. cp 08/29 17:30 Order name: IV Saline Lock; Complete Time: 18:03 cp 08/29 17:30 Order name: Labs collected and sent; Complete Time: 18:03 cp 08/29 17:30 Order name: NPO; Complete Time: 17:54 cp 08/29 19:19 Order name: PO challenge; Complete Time: 19:29 cp Administered Medications: 18:10 Drug: NS 0.9% IV 1000 ml Route: IV; Rate: 1 bolus; Site: left antecubital; ld1 18:10 Drug: Famotidine IVP 20 mg Route: IVP; Site: left antecubital; ld1 18:10 Drug: Ondansetron IVP 4 mg Route: IVP; Site: left antecubital; ld1 19:29 Drug: Acetaminophen PO 650 mg Route: PO; ha1 20:21 Follow up: Response: No adverse reaction ha1 Disposition: 08/30 19:48 Co-signature as Attending Physician, Jerome Huffman DO I was immediately available on-site ms3 in the Emergency Department for consultation in the care of the patient. Disposition Summary: 08/29/22 20:06 Discharge Ordered Location: Home cp Problem: new cp Symptoms: have improved cp Condition: Stable cp Diagnosis - Other specified related conditions, first trimester cp - Nausea cp - Lower abdominal pain, unspecified cp Followup: cp - With: Private Physician - When: 2 - 3 days - Reason: Recheck today's complaints Discharge Instructions: - Discharge Summary Sheet cp - Abdominal Pain During cp - Nausea, Adult cp - First Trimester of cp Forms: - Medication Reconciliation Form cp - Thank You Letter cp - Antibiotic Education cp - Prescription Opioid Use cp Prescriptions: - Zofran 4 mg Oral Tablet - take 1 tablet by ORAL route every 12 hours As needed; 20 tablet; Refills: 0, cp Product Selection Permitted Signatures: Dispatcher [employer] EDFL Agustin Peña PA PA cp Gill Coker RN RN Jerome Huffman DO DO ms3 Nadine Huffman RN RN ld1 Nikki Sanchez RN RN ha1
--- NOTE | 2022-08-29 20:07 | ER ---
Nurse's Notes [facility] Name: Deric Barry Age: 27 yrs Sex: Female : 1995 Arrival Date: 08/29/2022 Time: 17:06 Bed 20 Private MD: Diagnosis: Other specified related conditions, first trimester;Nausea;Lower abdominal pain, unspecified Presentation: 08/29 17:10 Chief complaint: Recent home test, c/o lower abdominal pain and nausea today. hb Denies vaginal bleeding/discharge. Coronavirus screen: At this time, the client does not indicate any symptoms associated with coronavirus-19. Ebola Screen: No symptoms or risks identified at this time. Initial Sepsis Screen: Does the patient meet any 2 criteria? No. Patient's initial sepsis screen is negative. Does the patient have a suspected source of infection? No. Patient's initial sepsis screen is negative. Risk Assessment: Do you want to hurt yourself or someone else? Patient reports no desire to harm self or others. Onset of symptoms was August 29, 2022. 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, 1, Living 1, LMP 06/06/2022, Verified, EDC cp 03/13/2023, Gestational age from LMP: 12 weeks 1 day Historical: - Allergies: 17:13 Spiriva with HandiHaler; hb 17:13 Peanut; hb - Home Meds: 17:13 Advair Diskus 100-50 mcg/dose Inhl dsdv 1 puff 2 times per day [Active]; albuterol hb sulfate 1.25 mg/3 mL Inhl nebu 3 mL 3 times per day [Active]; Bumetanide Oral as needed [Active]; furosemide 40 mg Oral tab 1 tab once daily [Active]; Linzess 290 mcg Oral capsule daily [Active]; Protonix 40 mg Oral granules delayed release for susp packet every morning [Active]; - PMHx: 17:13 Asthma; "severe"; PA with VSD; hb - PSHx: 17:13 Cholecystectomy; Gastric Sleeve-January 2022; pulmonary valve replacement, bovine; x 5;hb - Immunization history:: Adult Immunizations up to date. - Social history:: Smoking status: Patient denies any tobacco usage or history of. Screenin:32 [facility] ED Fall Risk Assessment (Adult) History of falling in the last 3 months, ha1 including since admission No falls in past 3 months (0 pts) Confusion or Disorientation No (0 pts) Intoxicated or Sedated No (0 pts) Impaired Gait No (0 pts) Mobility Assist Device Used No (0 pt) Altered Elimination No (0 pt) Score/Fall Risk Level 0 - 2 = Low Risk Oriented to surroundings, Maintained a safe environment, Educated pt \\T\\ family on fall prevention, incl call for assistance when getting out of bed. Abuse screen: Denies threats or abuse. Denies injuries from another. Nutritional screening: No deficits noted. Tuberculosis screening: No symptoms or risk factors identified. Assessment: 19:29 General: Appears comfortable, Behavior is calm, cooperative. Pain: Complains of pain in ha1 abdomen Pain does not radiate. Pain currently is 3 out of 10 on a pain scale. Quality of pain is described as crampy. Neuro: Level of Consciousness is awake, alert, obeys commands, Oriented to person, place, time, situation. Cardiovascular: Capillary refill < 3 seconds Patient's skin is warm and dry. Respiratory: Airway is patent Respiratory effort is even, unlabored, Respiratory pattern is regular, symmetrical. GI: Abdomen is flat, non-distended, Bowel sounds present X 4 quads. Abd is soft and non tender X 4 quads. Reports lower abdominal pain. : No signs and/or symptoms were reported regarding the genitourinary system. Derm: Skin is pink, warm \\T\\ dry. Musculoskeletal: Circulation, motion, and sensation intact. Range of motion: intact in all extremities. 20:21 Reassessment: Patient and/or family updated on plan of care and expected duration. Pain ha1 level reassessed. Patient is alert, oriented x 3, equal unlabored respirations, skin warm/dry/pink. Patient denies pain at this time. Patient states feeling better. Patient states symptoms have improved. Vital Signs: 17:10 BP 121 / 71; Pulse 65; Resp 16; Temp 98.5(O); Pulse Ox 100% on R/A; Weight 73.94 kg; hb Height 5 ft. 1 in. ; Pain 4/10; 19:31 BP 104 / 72; Pulse 59; Resp 16 S; Pulse Ox 98% on R/A; ha1 20:21 BP 102 / 70; Pulse 61; Resp 16 S; Pulse Ox 98% on R/A; ha1 17:10 Body Mass Index 30.80 (73.94 kg, 154.94 cm) hb 17:10 Pain Scale: Adult hb ED Course: 17:07 Patient arrived in ED. ts1 17:13 Triage completed. hb 17:13 Arm band placed on. hb 17:19 Agustin Peña PA is PHCP. cp 17:19 Jerome Huffman DO is Attending Physician. cp 18:03 Inserted saline lock: 20 gauge in left antecubital area, using aseptic technique. Blood ld1 collected. 18:04 Abo/rh Typing Sent. ld1 18:04 Basic Metabolic Panel Sent. ld1 18:04 CBC with Diff Sent. ld1 18:04 Test, Urine Sent. ld1 18:04 Quantitative Hcg Sent. ld1 18:04 Urinalysis w/ reflexes Sent. ld1 18:45 US Transvaginal Ob In Process Unspecified. EDMS 19:20 Report received from WILL Veronica. ha1 19:28 Nikki Sanchez, WILL is Primary Nurse. ha1 19:33 Patient has correct armband on for positive identification. Placed in gown. Bed in low ha1 position. Call light in reach. Side rails up X 1. 20:22 No provider procedures requiring assistance completed. IV discontinued, intact, ha1 bleeding controlled, No redness/swelling at site. Pressure dressing applied. Administered Medications: 18:10 Drug: NS 0.9% IV 1000 ml Route: IV; Rate: 1 bolus; Site: left antecubital; ld1 18:10 Drug: Famotidine IVP 20 mg Route: IVP; Site: left antecubital; ld1 18:10 Drug: Ondansetron IVP 4 mg Route: IVP; Site: left antecubital; ld1 19:29 Drug: Acetaminophen PO 650 mg Route: PO; ha1 20:21 Follow up: Response: No adverse reaction ha1 Medication: 20:22 VIS not applicable for this client. ha1 Outcome: 20:06 Discharge ordered by MD. cp 20:22 Discharged to home ambulatory, with family. ha1 20:22 Condition: stable 20:22 Discharge instructions given to patient, Instructed on discharge instructions, follow up and referral plans. medication usage, Demonstrated understanding of instructions, follow-up care, medications, Prescriptions given X 1. 20:22 Patient left the ED. ha1 Signatures: Dispatcher [employer] EDMS Agustin Peña PA PA cp Baxter, Heather, RN RN Nadine Huffman RN RN ld1 Nikki Sanchez RN RN ha1 Mary Maria PAS PAS ts1
[2022-08-29 21:00] VITALS: TEMP 98.5
[2022-08-29 21:01] VITALS: O2SAT 98
[2022-08-29 21:03] VITALS: BP 102/70
== END 2022-08-29 20:22 | disposition home or self-care (01) ==
LOC: ER 17:06
DX: R10.32 Left lower quadrant pain (principal); R10.31 Right lower quadrant pain; Z3A.12 12 weeks gestation of pregnancy; R11.2 Nausea with vomiting, unspecified; J45.998 Other asthma; Z91.010 Allergy to peanuts; Z88.8 Allergy status to other drugs, medicaments and biological substances
CPT/HCPCS: 85025; 81001; 80048; 36415; 86900; 81025; 86901; 84702; 76817; 96375; 96374; 99284; J2405; J7030

== ENCOUNTER → 2023-05-13 | Emergency (ER) | payer OTHER ==
[~2023-05-13] MED LIST: AMOX/K CLAV 875 MG TAB ONE; CEFTRIAXONE 1000 MG/VIAL ONE; FENTANYL CITR 100 MCG/2 ML ONE; NA CHLORIDE 0.9% 1,000 ML ONE; NA CHLORIDE 0.9% 100 ML ONE; ONDANSETRON 4 MG/2 ML VIAL ONE
--- NOTE | 2023-05-13 15:02 | RAD REPORT ---
EXAM DESCRIPTION: US - Transvaginal Study Probe - 05/13/2023 2:21 pm CLINICAL HISTORY: ABD PAIN COMPARISON: Transvaginal Study Probe dated 11/28/2017; Transvaginal OB dated 08/29/2022 TECHNIQUE: Sonographic grayscale and color flow images of the pelvis were obtained. FINDINGS: The uterus is normal in size, shape and echotexture allowing for recent status, with appropriate partial involution in my opinion. The uterus measures 11.2 cm in length. The endometrial stripe measures 6 mm, normal. Both ovaries are normal in size, shape and echotexture. The right ovary measures 3.2 x 2.3 x 2.4 cm. The left ovary measures 3.3 x 1.8 x 2.0 cm. Predominantly homogeneously hyperechoic ovoid 3.2 x 2.8 x 2.6 cm right parovarian mass with a vascularized hypoechoic peripheral component. No other suspici ous adnexal masses. Normal Doppler blood flow was demonstrated to both ovaries. No significant pelvic ascites. IMPRESSION: Expected appearance of the uterus. Nonspecific paraovarian 3.2 cm predominantly hyperechoic solid mass, could represent a dermoid, with other considerations including but not limited to a degenerating fibroid. Follow-up ultrasound in 6-1 0 weeks is recommended. If the finding is persistent or progressive, this may benefit from additional characterization by pelvic MRI.
[2023-05-13 15:29] LABS: Absolute Lymphocytes (CBC) 0.3 K/uL (0.7-4.9); Hematocrit 39.8 % (36.0-45.0); Lymphocytes % 4.2 % (15.3-44.8); MCV 81.4 fL (80-100); MPV 7.7 fL (7.6-11.3); Platelets 348 thou/uL (152-406); RBC Red Blood Cell Count 4.89 M/uL (3.86-4.86)
[2023-05-13 15:50] LABS: Albumin 3.7 g/dL (3.4-5.0); Bilirubin Total 0.7 mg/dL (0.2-1.0); Potassium 3.6 mEq/L (3.5-5.1); Protein, Total 7.9 g/dL (6.4-8.2)
[2023-05-13 16:11] LABS: Specific Gravity > 1.030 (1.005-1.030); Urine Bacteria None Seen /HPF (<20); Urine Bilirubin NEGATIVE (Negative); Urine Blood Negative (Negative); Urine Clarity Clear (Clear); Urine Color Yellow (Yellow); Urine Crystals Unidentified Few /HPF (None Seen); Urine Glucose NEGATIVE (Negative); Urine Mucus 2+ /HPF (None Seen); Urine Protein TRACE (Negative); Urine RBC <5 /HPF (None Seen); Urine Urobilinogen 1+ (Normal); Urine pH 5.5 (5.0-7.0)
[2023-05-13 17:30] LABS: Troponin High Sensitivity 3.1 pg/mL (<58.9)
[2023-05-13 17:33] LABS: SARS-CoV-2 Antigen Rapid Res Negative (Negative)
--- NOTE | 2023-05-13 17:55 | RAD REPORT ---
EXAM DESCRIPTION: [place] Single View05/13/2023 5:39 pm CLINICAL HISTORY: COUGH COMPARISON: Chest Pa And Lat (2 Views) dated 02/13/2021; Chest Single View dated 11/30/2020; Chest Pa And Lat (2 Views) dated 01/25/2020; Chest Pa And Lat (2 Views) dated 05/16/2018 TECHNIQUE: Portable AP view of the chest. FINDINGS: Patchy right basilar airspace opacities. Questionable subtle left basilar opacities as wel l. No pneumothorax or effusion. The cardiomediastinal contours are stable, with mild cardiomegaly, s equelae of median sternotomy, and left atrial appendage occlusion again seen. . IMPRESSION: Right basilar airspace opacities and questionable left subtle basilar opacities as well. Findings may reflect pneumonia.
--- NOTE | 2023-05-13 18:37 | RAD REPORT ---
EXAM DESCRIPTION: CT - Abdomen Pelvis W Contrast - 05/13/2023 5:52 pm CLINICAL HISTORY: Abdominal pain, fever, pain COMPARISON: Transvaginal Study Probe dated 05/13/2023 TECHNIQUE: Thin cut axial CT imaging of the abdomen and pelvis was performed following intravenous a dministration of 100 mL Isovue 300. Multiplanar reformats were generated and reviewed. All CT scans are performed using dose optimization technique as appropriate and may include automated exposure control or mA/KV adjustment according to patient size. FINDINGS: No suspicious findings in the lung bases. The liver, spleen, adrenal glands, and pancreas show no suspicious findings. Gallbladder was surgica lly removed. Symmetric renal function is seen with no hydronephrosis or suspicious renal mass. Nonobstructing 2-3 mm left lower renal pole calculus. Sequelae of recent . Marginally enhancing thin-walled collections adjacent to the right wall of the uterus measuring 3.3 x 2.0 cm, and the fundus anteriorly measuring 4.0 x 1.4 cm. The right-si ded collection likely correlates to the predominantly hyperechoic structure seen on recent ultrasound . No other collections or suspicious tract extending towards the section incision. No dilated bowel loops although there is diffuse fluid filling throughout nondistended small bowel. N o Bowel wall thickening. No free air, free fluid or inflammatory stranding. No hernia, mass or bulky lymphadenopathy. The urinary bladder is without significant finding. No suspicious bony findings. IMPRESSION: There are 2 small collections adjacent to the right uterine wall and fundus with margina l enhancement as described above. One of these likely corresponds to the hyperechoic parovarian struc ture seen on pelvic ultrasound of the same day. Constellation of findings suggest a organizing hemato ma as or blood products in the setting of recent section. Possibility of superimposed infect ion is difficult to exclude, although considered less likely. Nonspecific fluid filling throughout nondistended small bowel, findings which may relate to enteritis or diarrheal state. Nonobstructing left lower renal pole 2-3 mm calculus. The findings were communicated to Agustin Smith on 05/13/2023 at 18:31 hours.
--- NOTE | 2023-05-13 18:41 | RAD REPORT ---
EXAM DESCRIPTION: CT - Chest For Pe Angio - 05/13/2023 5:52 pm CLINICAL HISTORY: Chest pain;Cough;Dyspnea COMPARISON: Chest For Pe Angio dated 11/30/2020 TECHNIQUE: Thin axial CT images of the chest were obtained following administration of 100 mL Isovue 370 IV contrast. Multiplanar reconstructions, and maximum intensity projection reconstructions were generated and reviewed. Exam utilizes a protocol for optimal evaluation of pulmonary arterial tree. All CT scans are performed using dose optimization technique as appropriate and may include automated exposure control or mA/KV adjustment according to patient size. FINDINGS: Pulmonary arteries show no emboli or other suspicious finding. Sequelae of pulmonary arter y reconstruction and stent along the left pulmonary artery again seen, stable in configuration. Ect m ildly ectatic appearance michelle along the ascending thoracic aorta stable, with normal diameter, up to 3.8 cm. No other acute or significant aorta findings. Sequelae of median sternotomy. No mass or infiltrate in the lung parenchyma. No pleural thickening or pleural effusion. No pneumotho rax. No abnormal mediastinal or hilar masses or lymphadenopathy seen. No chest wall mass or abnormal axill iary lymphadenopathy. Dextroconvex mild scoliotic deformity at the midthoracic spine, and fusion anomalies along some of th e upper ribs posteriorly again seen. IMPRESSION: No evidence of acute central pulmonary emboli. No other acute findings in the chest. Stable findings as above.
--- NOTE | 2023-05-13 19:09 | ER ---
Nurse's Notes [facility] Name: Deric Baryr Age: 27 yrs Sex: Female : 1995 Arrival Date: 05/13/2023 Time: 13:39 Bed 7 Private MD: Ciera Fried Diagnosis: Weakness;Other malaise and fatigue Presentation: 05/13 14:33 Chief complaint: Patient states: 3 weeks ago. Started to have body aches and ll1 chills today. Coronavirus screen: Client denies travel out of the [place] in the last 14 days. At this time, the client does not indicate any symptoms associated with coronavirus-19. Ebola Screen: Patient denies travel to an Ebola-affected area in the 21 days before illness onset. Initial Sepsis Screen: Does the patient meet any 2 criteria? No. Patient's initial sepsis screen is negative. Does the patient have a suspected source of infection? No. Patient's initial sepsis screen is negative. Risk Assessment: Do you want to hurt yourself or someone else? Patient reports no desire to harm self or others. Onset of symptoms was May 13, 2023. 14:33 Method Of Arrival: Wheelchair ll1 14:33 Acuity: DOLLY 3 ll1 Triage Assessment: 14:34 General: Appears uncomfortable, Behavior is calm, cooperative, appropriate for age, ll1 Reports chills for feeling ill for fatigue for. Pain: Complains of pain in back Quality of pain is described as aching. Neuro: Reports weakness. Musculoskeletal: Circulation, motion, and sensation intact. Capillary refill < 3 seconds, Reports pain in body aches and back pain. 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 - Social history:: Smoking status: Patient denies any tobacco usage or history of. Screenin:30 [facility] ED Fall Risk Assessment (Adult) History of falling in the last 3 months, bp including since admission No falls in past 3 months (0 pts). Abuse screen: Denies threats or abuse. Denies injuries from another. Nutritional screening: No deficits noted. Tuberculosis screening: No symptoms or risk factors identified. Assessment: 14:35 General: SEE TRIAGE NOTE. bp 15:30 Reassessment: No changes from previously documented assessment. Patient is alert, bp oriented x 3, equal unlabored respirations, skin warm/dry/pink. 17:30 Reassessment: Patient appears in no apparent distress at this time. Patient is alert, bp oriented x 3, equal unlabored respirations, skin warm/dry/pink. 19:00 General: Appears in no apparent distress. comfortable, Behavior is calm, cooperative. jw7 Pain: Complains of pain in back Pain does not radiate. Pain currently is 6 out of 10 on a pain scale. Quality of pain is described as pressure, sharp, stabbing, Pain began gradually, Is intermittent. Neuro: Level of Consciousness is awake, alert, obeys commands, Oriented to person, place, time, situation. Cardiovascular: Capillary refill < 3 seconds Patient's skin is warm and dry. Respiratory: Airway is patent Trachea midline Respiratory effort is even, unlabored, Respiratory pattern is regular, symmetrical. GI: Abdomen is flat, non-distended, Bowel sounds present X 4 quads. : No deficits noted. No signs and/or symptoms were reported regarding the genitourinary system. EENT: No deficits noted. No signs and/or symptoms were reported regarding the EENT system. Derm: Skin is intact, is healthy with good turgor, Skin is dry, Skin is normal, Skin temperature is warm. Musculoskeletal: Circulation, motion, and sensation intact. Range of motion: intact in all extremities. Vital Signs: 14:33 BP 95 / 68; Pulse 91; Resp 17; Temp 98.4; Pulse Ox 96% ; Weight 72.12 kg; Height 5 ft. ll1 1 in. ; Pain 7/10; 17:35 BP 103 / 72; Pulse 95; Resp 16; Pulse Ox 100% ; bp 18:30 BP 100 / 64 Supine; Pulse 75; Resp 18; Pulse Ox 99% on R/A; db 18:33 BP 97 / 66 Sitting; Pulse 85; db 18:40 BP 97 / 74 Standing; Pulse 89; db 14:33 Body Mass Index 30.04 (72.12 kg, 154.94 cm) ll1 14:33 Pain Scale: Adult ll1 ED Course: 13:40 Patient arrived in ED. rg4 13:41 Ciera Fried is Private Physician. rg4 13:49 Agustin Smith MD is Attending Physician. mendel 14:22 US Transvaginal Study (Probe) In Process Unspecified. EDMS 14:25 Triage completed. ph 14:35 Arm band placed on. ll1 15:20 Inserted saline lock: 20 gauge in right antecubital area, using aseptic technique. as6 Blood collected. 15:26 Patient placed in an exam room, on a stretcher. ll1 15:27 Krzysztof Wheatley, RN is Primary Nurse. bp 15:30 Patient has correct armband on for positive identification. bp 17:09 SARS RAPID Sent. bp 17:09 Flu Sent. bp 17:41 Chest Single View XRAY In Process Unspecified. EDMS 17:44 CT Chest For PE Angio Sent. bp 17:54 CT Chest For PE Angio In Process Unspecified. EDMS 17:54 CT Abd/Pelvis - IV Contrast Only In Process Unspecified. EDMS 19:07 Ciera Fried is Referral Physician. mendel 19:07 Chad Rose MD is Referral Physician. mendel 19:26 No provider procedures requiring assistance completed. IV discontinued, intact, jw7 bleeding controlled, No redness/swelling at site. Pressure dressing applied. 19:27 Provided Education on: Discharge instructions and medication usage. jw7 Administered Medications: 15:51 Drug: NS 0.9% IV 1000 ml IV at 1 bolus Per protocol; 1000 mL bolus Route: IV; Rate: 1 bp bolus; Site: right antecubital; 19:28 Follow up: Response: No adverse reaction; IV Status: Completed infusion; IV Intake: jw7 1000ml 17:30 Drug: Rocephin IV 1 grams IV at per protocol once; Given slow IV push per pharmacy bp instructions Route: IV; Rate: per protocol; Site: right antecubital; 19:28 Follow up: Response: No adverse reaction; IV Status: Completed infusion; IV Intake: [id number] 17:36 Drug: fentaNYL (PF) IVP 25 mcg IVP once Route: IVP; Site: right antecubital; bp 19:28 Follow up: Response: No adverse reaction; Marked relief of symptoms jw7 17:44 Drug: fentaNYL (PF) IVP 25 mcg IVP once Route: IVP; Site: right antecubital; bp 19:28 Follow up: Response: No adverse reaction; Marked relief of symptoms jw7 17:44 Drug: Ondansetron IVP 4 mg IVP once; over 2 minutes Route: IVP; Site: right antecubital;bp 19:28 Follow up: Response: No adverse reaction; Marked relief of symptoms jw7 18:39 Drug: Amoxicillin-Clavulanate PO 875 mg PO once Route: PO; bp 19:28 Follow up: Response: No adverse reaction jw7 Medication: 19:27 VIS not applicable for this client. jw7 Intake: 19:28 IV: 50ml; Total: 50ml. jw7 19:28 IV: 1000ml; Total: 1050ml. jw7 Outcome: 19:07 Discharge ordered by . mendel 19:26 Discharged to home ambulatory, [facility] 19:26 Condition: stable 19:26 Discharge instructions given to patient, Instructed on discharge instructions, follow up and referral plans. medication usage, Demonstrated understanding of instructions, follow-up care, medications, Prescriptions given X 1, 19:29 Patient left the ED. jw7 Signatures: Dispatcher [employer] EDMS Agustin Smith MD MD cha Hall, Patricia, RN Caitlin Womack ph rg4 Krzysztof Wheatley RN Luis Carlos Arora RN RN ll1 Estuardo Shepherd RN WILL as6 Syeda Adler RN RN jw7 Kaya Gray RN RN db Corrections: (The following items were deleted from the chart) 14:24 Chief complaint: Patient states: N/V sore throat and headache since Saturday, ph today tripped on rug and fell, c/o L low back pain radiating to pelvis, pt ambulatory upon arrival to ED. 14:24 Coronavirus screen: Vaccine status: Patient reports receiving the 1st dose of the Covid vaccine. 14:24 Ebola Screen: No symptoms or risks identified at this time. [facility] 14:24 Initial Sepsis Screen: Does the patient meet any 2 criteria? No. Patient's initial sepsis screen is negative. Does the patient have a suspected source of infection? No. Patient's initial sepsis screen is negative. ph : 14:24 Risk Assessment: Do you want to hurt yourself or someone else? Patient reports no ph desire to harm self or others. ph : 14:24 Onset of symptoms was May 13, 2023 ph ph 14:24 Method Of Arrival: Ambulatory ph ph : 14:24 BP 140 / 85; Pulse 90bpm; Resp 18bpm; Pulse Ox 100% RA; Temp 98.2F; 69.85 kg; ph Height 5 ft. 8 in.; BMI: 23.4; ph 14: 14:24 Acuity: DOLLY 3 ph ph
--- NOTE | 2023-05-13 19:09 | EDPHYS ---
Physician Documentation [facility] Name: Deric Barry Age: 27 yrs Sex: Female : 1995 Arrival Date: 05/13/2023 Time: 13:39 Bed 7 Private MD: Ciera Fried ED Physician Agustin Smith HPI: 05/13 17:09 This 27 yrs old Female presents to ER via Wheelchair with complaints of 3 wks mendel Post , Body Aches/Chills. 17:09 The patient presents with pain that is acute, with no known mechanism of injury. The mendel symptoms are located in the thoracic area and lumbar area. Onset: The symptoms/episode began/occurred 1 day(s) ago. The pain does not radiate. Associated signs and symptoms: Pertinent positives: fever, nausea. The problem was sustained without known cause, c section 3 weeks ago with epidural. Modifying factors: The patient symptoms are alleviated by nothing, the patient symptoms are aggravated by movement. sob, fever, body aches. Severity of symptoms: At their worst the symptoms were mild, in the emergency department the symptoms have improved, mildly. The patient reports fever, not measured (subjective). 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 - Social history:: Smoking status: Patient denies any tobacco usage or history of. ROS: 17:11 Constitutional: Negative for fever, chills, and weight loss, Eyes: Negative for injury, mendel pain, redness, and discharge, ENT: Negative for injury, pain, and discharge, Neck: Negative for injury, pain, and swelling, Cardiovascular: Negative for chest pain, palpitations, and edema, Abdomen/GI: Negative for abdominal pain, nausea, vomiting, diarrhea, and constipation, Back: Negative for injury and pain, : Negative for injury, bleeding, discharge, and swelling, MS/Extremity: Negative for injury and deformity, Skin: Negative for injury, rash, and discoloration, Neuro: Negative for headache, weakness, numbness, tingling, and seizure, Psych: Negative for depression, anxiety, suicide ideation, homicidal ideation, and hallucinations, Allergy/Immunology: Negative for hives, rash, and allergies, Endocrine: Negative for neck swelling, polydipsia, polyuria, polyphagia, and marked weight changes, 17:11 Respiratory: Positive for cough, with no reported sputum, shortness of breath, on exertion. Exam: 17:11 Constitutional: This is a well developed, well nourished patient who is awake, alert, mendel and in no acute distress. Head/Face: Normocephalic, atraumatic. Eyes: Pupils equal round and reactive to light, extra-ocular motions intact. Lids and lashes normal. Conjunctiva and sclera are non-icteric and not injected. Cornea within normal limits. Periorbital areas with no swelling, redness, or edema. ENT: Nares patent. No nasal discharge, no septal abnormalities noted. Tympanic membranes are normal and external auditory canals are clear. Oropharynx with no redness, swelling, or masses, exudates, or evidence of obstruction, uvula midline. Mucous membranes moist. Neck: Trachea midline, no thyromegaly or masses palpated, and no cervical lymphadenopathy. Supple, full range of motion without nuchal rigidity, or vertebral point tenderness. No Meningismus. Chest/axilla: Normal chest wall appearance and motion. Nontender with no deformity. No lesions are appreciated. Respiratory: Lungs have equal breath sounds bilaterally, clear to auscultation and percussion. No rales, rhonchi or wheezes noted. No increased work of breathing, no retractions or nasal flaring. Abdomen/GI: Soft, non-tender, with normal bowel sounds. No distension or tympany. No guarding or rebound. No evidence of tenderness throughout. Back: No spinal tenderness. No costovertebral tenderness. Full range of motion. Skin: Warm, dry with normal turgor. Normal color with no rashes, no lesions, and no evidence of cellulitis. MS/ Extremity: Pulses equal, no cyanosis. Neurovascular intact. Full, normal range of motion. Neuro: Awake and alert, GCS 15, oriented to person, place, time, and situation. Cranial nerves II-XII grossly intact. Motor strength 5/5 in all extremities. Sensory grossly intact. Cerebellar exam normal. Normal gait. Psych: Awake, alert, with orientation to person, place and time. Behavior, mood, and affect are within normal limits. 17:11 Cardiovascular: Rate: normal, Rhythm: regular, Pulses: Pulses are 4+ in bilateral radial, brachial, femoral, popliteal, posterior tibial and and dorsalis pedis arteries.. Heart sounds: murmur, systolic, grade 2 over 6, heard in the aortic area, rub, not appreciated, gallop, not appreciated, Edema: is not appreciated, JVD: is not appreciated, 17:11 Musculoskeletal/extremity: DVT Exam: No signs of deep vein thrombosis. no pain, no swelling, no tenderness, negative Homans' sign noted on exam, no appreciated bluish discoloration, no erythema, no increased warmth, 17:41 ECG was reviewed by the Attending Physician. [facility] Vital Signs: 14:33 BP 95 / 68; Pulse 91; Resp 17; Temp 98.4; Pulse Ox 96% ; Weight 72.12 kg; Height 5 ft. ll1 1 in. ; Pain 7/10; 17:35 BP 103 / 72; Pulse 95; Resp 16; Pulse Ox 100% ; bp 18:30 BP 100 / 64 Supine; Pulse 75; Resp 18; Pulse Ox 99% on R/A; db 18:33 BP 97 / 66 Sitting; Pulse 85; db 18:40 BP 97 / 74 Standing; Pulse 89; db 14:33 Body Mass Index 30.04 (72.12 kg, 154.94 cm) ll1 14:33 Pain Scale: Adult ll1 MDM: 13:49 Patient medically screened. mendel 17:13 Differential diagnosis: viral Infection, bacterial infection, URI, bronchitis, mendel pneumonia gastroenteritis, arthritis, Cholelithiasis chronic back pain, Fracture Hydronephrosis Obesity spinal injury, sprain. Differential Diagnosis sepsis, flu. Data reviewed: vital signs, nurses notes, lab test result(s), EKG, radiologic studies, CT scan, plain films, ultrasound. Consideration of Admission/Observation Escalation of care including admission/observation considered. I considered the following discharge prescriptions or medication management in the emergency department Medications were administered in the Emergency Department. See MAR. Independent interpretation of the following test(s) in the Emergency Department EKG: See my EKG interpretation above. Test considered but Not performed: Ultrasound no abd usg. Historians other than the Patient: Parent: mom well informed. Care significantly affected by the following chronic conditions: pa with vsd. Counseling: I had a detailed discussion with the patient and/or guardian regarding the historical points, exam findings, and any diagnostic results supporting the discharge/admit diagnosis, lab results, radiology results, the need for outpatient follow up, for definitive care, a employee adviser, a family practitioner, an OB/Gyne specialist. 05/13 13:56 Order name: CBC with Diff; Complete Time: 17:[address] [facility] 05/13 13:56 Order name: Comprehensive Metabolic Panel; Complete Time: 17:[address] [facility] 05/13 13:56 Order name: Blood Culture Adult (2) 05/13 13:56 Order name: Lactate w/ 2H reflex if indic.; Complete Time: 17:[address] [facility] 05/13 13:56 Order name: Urinalysis w/ reflexes; Complete Time: 17:[address] [facility] 05/13 13:56 Order name: PREGU; Complete Time: 17:[address] [facility] 05/13 13:56 Order name: HCG-Quantitative; Complete Time: 17:[address] [facility] 05/13 17:03 Order name: SARS RAPID; Complete Time: 18:[address] [facility] 05/13 17:03 Order name: Flu; Complete Time: 18:[address] [facility] 05/13 17:08 Order name: BNP; Complete Time: 18:[address] [facility] 05/13 17:08 Order name: Troponin HS; Complete Time: 18:[address] [facility] 05/13 13:56 Order name: US Transvaginal Study (Probe); Complete Time: 17:[address] [facility] 05/13 17:02 Order name: Chest Single View XRAY; Complete Time: 18:[address] [facility] 05/13 17:08 Order name: CT Chest For PE Angio; Complete Time: 19:[address] [facility] 05/13 17:44 Order name: CT Abd/Pelvis - IV Contrast Only; Complete Time: 19:[address] [facility] 05/13 17:11 Order name: EKG; Complete Time: 17:[address] [facility] 05/13 17:11 Order name: EKG - Nurse/Tech; Complete Time: 17:35 05/13 18:30 Order name: Orthostatics; Complete Time: 18:[address] [facility] EC:41 Rate is 91 beats/min. Rhythm is regular. QRS Ranger is Normal. KS interval is normal. QRS mendel interval is normal. QT interval is normal. No Q waves. T waves are Normal. No ST changes noted. Clinical impression: NSR w/ Non-specific ST/T Changes and No evidence of ischemia. Interpreted by me. Reviewed by me. Administered Medications: 15:51 Drug: NS 0.9% IV 1000 ml IV at 1 bolus Per protocol; 1000 mL bolus Route: IV; Rate: 1 bp bolus; Site: right antecubital; 19:28 Follow up: Response: No adverse reaction; IV Status: Completed infusion; IV Intake: jw7 1000ml 17:30 Drug: Rocephin IV 1 grams IV at per protocol once; Given slow IV push per pharmacy bp instructions Route: IV; Rate: per protocol; Site: right antecubital; 19:28 Follow up: Response: No adverse reaction; IV Status: Completed infusion; IV Intake: [id number] 17:36 Drug: fentaNYL (PF) IVP 25 mcg IVP once Route: IVP; Site: right antecubital; bp 19:28 Follow up: Response: No adverse reaction; Marked relief of symptoms jw7 17:44 Drug: fentaNYL (PF) IVP 25 mcg IVP once Route: IVP; Site: right antecubital; bp 19:28 Follow up: Response: No adverse reaction; Marked relief of symptoms jw7 17:44 Drug: Ondansetron IVP 4 mg IVP once; over 2 minutes Route: IVP; Site: right antecubital;bp 19:28 Follow up: Response: No adverse reaction; Marked relief of symptoms jw7 18:39 Drug: Amoxicillin-Clavulanate PO 875 mg PO once Route: PO; bp 19:28 Follow up: Response: No adverse reaction jw7 Disposition Summary: 05/13/23 19:07 Discharge Ordered Notes: Location: Home mendel Problem: new mendel Symptoms: have improved mnedel Condition: Stable mendel Diagnosis - Weakness mendel - Other malaise and fatigue mendel Followup: mendel - With: Ciera Fried - When: 2 - 3 days - Reason: Recheck today's complaints, Continuance of care, Re-evaluation by your physician Followup: mendel - With: Chad Rose MD - When: 2 - 3 days - Reason: Recheck today's complaints, Re-evaluation by your physician Discharge Instructions: - Discharge Summary Sheet mendel - Weakness mendel - Fatigue mendel - Near-Syncope, [id number] mendel - Incidental Abnormal Radiological Finding mendel - Weakness, [id number] mendel - Deconditioning mendel Forms: - Medication Reconciliation Form mendel - Thank You Letter mendel - Antibiotic Education mendel - Prescription Opioid Use mendel - Patient Portal Instructions mendel - Leadership Thank You Letter mendel Prescriptions: - Augmentin 875-125 mg Oral tablet - take 1 tablet ORAL route every 12 hours for 7 days; 14 tablet; Refills: 0, mendel Product Selection Permitted Signatures: Dispatcher [employer] EDAgustin Paulson MD MD cha Peltier, Brian, WILL RN Luis Carlos Magaña RN RN ll1 Syeda Adler RN jw7
[2023-05-13 19:53] VITALS: BP 97/74; TEMP 98.4; O2SAT 99
== END ==
LOC: ER 13:39
DX: R53.1 Weakness (principal); R53.81 Other malaise; R53.83 Other fatigue; Z98.890 Other specified postprocedural states; Z11.52 Encounter for screening for COVID-19; Z88.8 Allergy status to other drugs, medicaments and biological substances; Z91.010 Allergy to peanuts; Z91.040 Latex allergy status; Z91.048 Other nonmedicinal substance allergy status; Z95.2 Presence of prosthetic heart valve
CPT/HCPCS: 87040 ×2; 85025; 81001; 36415; 81025; 83605; 84702; 84484; 80053; 83880; 87804 ×2; 71275; 74177; 71045; 76830; 87811; Q9967; J3010; J2405; J7030; J0696; 93005